=== PATIENT | male | born 1960 | race Caucasian/White ===

== ENCOUNTER → 2018-02-07 | Outpatient (CLI) | payer OTHER | LOC: CARD 09:14 | PROVIDERS: ATTEND Nurse Practitioner Family | DX: R94.31 Abnormal electrocardiogram [ECG] [EKG] (principal); I49.1 Atrial premature depolarization; I49.3 Ventricular premature depolarization; R06.09 Other forms of dyspnea | CPT/HCPCS: 93225; 93226 ==

== ENCOUNTER → 2018-02-14 | Outpatient (CLI) | payer OTHER ==
[~2018-02-14] MED LIST: CATHETER FLUSH 10 ML SYR IV PRN; REGADENOSON 0.4 MG/5 ML SYR (LEXISCAN) IV ONE
--- NOTE | 2018-02-16 10:29 | STRESS TEST ---
DATE OF SERVICE: 02/14/2018 RESTING AND POST REGADENOSON TECHNETIUM-99M TETROFOSMIN SPECT CT IMAGING ORDERING PHYSICIAN: Darlyn Hair APRN. CLINICAL DIAGNOSES: Abnormal electrocardiogram, premature ventricular contractions, shortness of breath. Baseline images were carried out after injection of 10.03 mCi of technetium-99m Tetrofosmin. This was followed by 0.4 mg regadenoson and 31.4 mCi of technetium-99m Tetrofosmin for stress imaging. The electrocardiogram showed sinus rhythm with frequent isolated premature ventricular contractions. The electrocardiogram did not change significantly with the regadenoson infusion. The patient noted some shortness of breath, which resolved in a few minutes following regadenoson infusion. Review of images at rest and following stress indicates a small transient inferior perfusion defect. Gated images show normal global left ventricular systolic function, normal regional wall motion. Left ventricular ejection fraction is calculated to be 50%. Left ventricular end-diastolic volume is 58 mL. TID is absent (1.06). CONCLUSIONS: 1. The study is indicative of a small amount of basal inferior ischemia. 2. Normal regional wall motion. 3. Normal global left ventricular systolic function with a calculated ejection fraction of 50%. Job ID: [id number] DocumentID: [id number] Dictated Date: 02/16/2018 10:02:26 Package Dyeing Machine Operator Date: 02/16/2018 10:29:06 Dictated By: GABRIELLE EVANS MD, MA, FACP, FACC,
== END ==
LOC: CARD 08:54
PROVIDERS: ATTEND Nurse Practitioner Family
DX: I49.1 Atrial premature depolarization (principal); I49.3 Ventricular premature depolarization; R06.09 Other forms of dyspnea; R94.31 Abnormal electrocardiogram [ECG] [EKG]
CPT/HCPCS: 78452; 93017; 93306

== ENCOUNTER 2018-04-14 14:44 | Day surgery (SDC) | payer OTHER ==
[2018-04-14] VITALS (10 sets, daily range): BP systolic 91–131; BP diastolic 57–89
[~2018-04-14] VITALS: Ht 172.7 cm; Wt 61.2 kg
--- OUTSIDE RECORDS SUMMARY | 2018-04-14 14:47 | XMS REPORT ---
Author Author CONOR GO Organization [facility] Address [address] [place] [address] Care Team Providers Care Teletype Or Varitype Keyboard Operator Name Role Phone CONOR GO Unavailable PROBLEMS Type Condition ICD9-CM Code TWA46-ZG Code Onset Dates Condition Status SNOMED Code Problem Chronic obstructive pulmonary disease, unspecified COPD type J44.9 Active 56382326 Problem PAC (premature atrial contraction) I49.1 Active 392384228 Problem Cigarette nicotine dependence with other nicotine-induced disorder F17.218 Active 73280003 Problem Low back pain M54.5 Active 774117935 Problem Hyperlipidemia, unspecified hyperlipidemia type E78.5 Active 90700966 Problem PVCs (premature ventricular contractions) I49.3 Active 46473069 Problem Marijuana abuse F12.10 Active 99257872 Problem Bradycardia R00.1 Active 83945500 Problem Other cardiac arrhythmia I49.8 Active 81087591 Problem Uncomplicated opioid dependence F11.20 Active 19240414 ALLERGIES No Information ENCOUNTERS Encounter Location Date Diagnosis [place] [id number] [address] Apr, [facility] [address] [address] Mar, Chronic obstructive pulmonary disease, unspecified COPD type J44.9 and Uncomplicated opioid dependence F11.20 [facility] [address] [place] [address] Mar, [facility] [address] [address] Mar, Abnormal stress test R94.39 ; Shortness of breath R06.02 ; PVCs (premature ventricular contractions) I49.3 ; Tobacco use Z72.0 and Hyperlipidemia, unspecified hyperlipidemia type E78.5 [facility] [address] [address] Mar, Uncomplicated opioid dependence F11.20 [facility] [address] [place] [address] Feb, Uncomplicated opioid dependence F11.20 [facility] [address] [place] [id number] [place] [address] Feb, Uncomplicated opioid dependence F11.20 [facility] [address] [address] Feb, Uncomplicated opioid dependence F11.20 [facility] [address] [place] [address] Feb, Uncomplicated opioid dependence F11.20 [facility] [address] [address] Jan, Uncomplicated opioid dependence F11.20 [facility] [address] [place] [address] Jan, Uncomplicated opioid dependence F11.20 [facility] [address] [address] Jan, Uncomplicated opioid dependence F11.20 [facility] [address] [place] [id number] [place] [address]- 4885 Jan, Uncomplicated opioid dependence F11.20 [facility] [address] [place] [address] Jan, Uncomplicated opioid dependence F11.20 [facility] [address] [place] [id number] [place] [address]26- 6510 Jan, Uncomplicated opioid dependence F11.20 [facility] [address] [place] [address] Jan, Uncomplicated opioid dependence F11.20 [facility] [address] [address] Jan, Abnormal EKG R94.31 ; PAC (premature atrial contraction) I49.1 ; PVCs (premature ventricular contractions) I49.3 ; Dyspnea on exertion R06.09 ; Chronic obstructive pulmonary disease, unspecified COPD type J44.9 ; History of drug use Z87.898 and Tobacco use Z72.0 [facility] [address] [place] [id number] [place] [address]234- 10[address] Jan, Uncomplicated opioid dependence F11.20 [facility] [address] [place] [address] Jan, Uncomplicated opioid dependence F11.20 [facility] [address] [place] [id number] [place] [address] 07990- 8[address] Dec, Chronic obstructive pulmonary disease, unspecified COPD type J44.9 and Uncomplicated opioid dependence F11.20 [facility] [address] [place] [id number] [place] [address] 9[address]21- 6426 Dec, Uncomplicated opioid dependence F11.20 [facility] [address] [place] [address] Dec, Uncomplicated opioid dependence F11.20 [facility] [address] [place] [id number] [place] [address] 65014- 1423 Dec, Uncomplicated opioid dependence F11.20 [facility] [address] [place] [address] Dec, Uncomplicated opioid dependence F11.20 [facility] [address] [place] [id number] [place] [address] 74661- 8804 Dec, [facility] [address] [place] [id number] [place] [address] 92141- 0719 Dec, Uncomplicated opioid dependence F11.20 [facility] [address] [place] [id number] [place] [address] 41345- 2785 Dec, [facility] [address] [place] [address] Dec, Uncomplicated opioid dependence F11.20 [facility] [address] [place] [address] 07690- 5966 Dec, [facility] [address] [place] [id number] [place] [address] 6[address]51- 18[address] Dec, Uncomplicated opioid dependence F11.20 [facility] [address] [place] [id number] [place] [address] 15317- 6205 Dec, Uncomplicated opioid dependence F11.20 [facility] [address] [place] [id number] [place] [address] 40085- 3818 Dec, [facility] [address] [place] [address] Nov, Uncomplicated opioid dependence F11.20 [facility] [address] [place] [id number] [place] [address] 31233- 2271 15 Nov, 2017 Other cardiac arrhythmia I49.8 [facility] [address] [place] [address] Nov, Uncomplicated opioid dependence F11.20 and Marijuana abuse F12.10 [facility] [address] [address] Nov, Uncomplicated opioid dependence F11.20 and Bradycardia R00.1 [facility] [address] [address] Nov, [facility] [address] [place] [address] Nov, Uncomplicated opioid dependence F11.20 and Marijuana abuse F12.10 [facility] [address] [place] [address] October, Uncomplicated opioid dependence F11.20 and Marijuana abuse F12.10 [facility] [address] [place] [id number] [place] [address] 27966- 25[address] October, Uncomplicated opioid dependence F11.20 [facility] [address] [place] [id number] [place] [address] 07653- 8773 October, [facility] [address] [place] [address] October, Uncomplicated opioid dependence F11.20 [facility] [address] [place] [id number] [place] [address]- [address] October, Uncomplicated opioid dependence F11.20 [facility] [address] [address] October, Opioid abuse F11.10 and Injection of illicit drug within last 12 months F19.90 [facility] [address] [place] [address] October, Uncomplicated opioid dependence F11.20 and Marijuana abuse F12.10 [facility] [address] [place] [id number] [place] [address] 32824- [address] October, [facility] [address] [place] [address] October, Uncomplicated opioid dependence F11.20 and Marijuana abuse F12.10 [facility] [address] [address] Sep, Chronic obstructive pulmonary disease, unspecified COPD type J44.9 ; Cigarette nicotine dependence with other nicotine-induced disorder F17.218 and PAC (premature atrial contraction) I49.1 [facility] [address] [place] [address] Sep, Uncomplicated opioid dependence F11.20 and Marijuana abuse F12.10 [facility] [address] [place] [id number] [place] [address] 29242- 9027 Sep, [facility] [address] [address] Sep, [facility] [address] [place] [id number] [place] [address] 07181- 9427 Sep, [facility] [address] [address] Jun, [facility] [address] [place] [id number] [place] [address] 67[address]- [address] Jun, [facility] [address] [address] May, Chronic obstructive pulmonary disease, unspecified COPD type J44.9 [facility] [address] [place] [id number] [place] [address] 29112- 1589 May, Overflow incontinence of urine N39.490 [facility] [address] [place] [id number] [place] [address] 49963- 3219 Apr, Bronchitis J40 ; Chronic obstructive pulmonary disease, unspecified COPD type J44.9 and Cigarette nicotine dependence with other nicotine-induced disorder F17.218 [place] [address] [address] Apr, [place] [address] [place] [id number] [place] [address]12- 5[address] Jan, Bronchitis J40 [place] [address] [place] [id number] [place] [address] 40068- 4506 Jan, Bronchitis J40 [place] [address] [place] [id number] [place] [address] 86096- 4134 Dec, Bronchitis J40 ; Low back pain M54.5 and Other chronic pain G89.29 [place] [address] [address]- 6[address] Sep, [place] [address] [place] [id number] [place] [address] 44692- 8055 Sep, [place] [address] [place] [id number] [place] [address] 64383- 5570 Nov, [place] [address] [place] [id number] [place] [address] 23442- 5251 Nov, IMMUNIZATIONS No Known Immunizations SOCIAL HISTORY Never Assessed REASON FOR VISIT Lab (walk-in) PLAN OF CARE VITAL SIGNS MEDICATIONS Medication Instructions Dosage Frequency Start Date End Date Duration Status ProAir HFA 108 (90 Base) MCG/ACT Inhalation every 4 hrs. Please voucher 2 puffs as needed Jun, Active Suboxone 8-2 MG Sublingual Once a day 2 film under the tongue and allow to dissolve 24h 28 days Active RESULTS No Results PROCEDURES Procedure Date Ordered Result Body Site DRUG TEST PRSMV CHEM ANLYZR Mar 31, 2018 DRUG SCREEN AMPHETAMINES 1/2 Mar 31, 2018 INSTRUCTIONS MEDICATIONS ADMINISTERED No Known Medications MEDICAL (GENERAL) HISTORY Type Description Date Medical History Unspecified backache Medical History tips of 3rd and 4th digit on right hand cut off Medical History PACs/PVCs/Bradycardia Medical History opioid use disorder Surgical History No Surgical history information Hospitalization History had tips of 3rd and 4th digit on right hand cut off, got caught in dog cable
--- OUTSIDE RECORDS SUMMARY | 2018-04-14 14:47 | XMS REPORT ---
Author Author CONOR GO Organization [facility] Address [address] [place] [address] Care Team Providers Care At Home Independent Call Center Agent Name Role Phone CONOR GO Unavailable PROBLEMS Type Condition ICD9-CM Code CCI95-DK Code Onset Dates Condition Status SNOMED Code Problem Chronic obstructive pulmonary disease, unspecified COPD type J44.9 Active 85147525 Problem PAC (premature atrial contraction) I49.1 Active 384026483 Problem Cigarette nicotine dependence with other nicotine-induced disorder F17.218 Active 65691611 Problem Low back pain M54.5 Active 242426424 Problem Hyperlipidemia, unspecified hyperlipidemia type E78.5 Active 76558931 Problem PVCs (premature ventricular contractions) I49.3 Active 50635556 Problem Marijuana abuse F12.10 Active 31965255 Problem Bradycardia R00.1 Active 76296087 Problem Other cardiac arrhythmia I49.8 Active 55744318 Problem Uncomplicated opioid dependence F11.20 Active 55412647 ALLERGIES No Known Allergies ENCOUNTERS Encounter Location Date Diagnosis [facility] [address] [place] [address] Mar, [facility] [address] [place] [id number] [place] [address] Mar, Abnormal stress test R94.39 ; Shortness of breath R06.02 ; PVCs (premature ventricular contractions) I49.3 ; Tobacco use Z72.0 and Hyperlipidemia, unspecified hyperlipidemia type E78.5 [facility] [address] [place] [id number] [place] [address]153- 1337 Mar, Uncomplicated opioid dependence F11.20 [facility] [address] [place] [address] Feb, Uncomplicated opioid dependence F11.20 [facility] [address] [place] [id number] [place] [address] 24632- 8881 Feb, Uncomplicated opioid dependence F11.20 [facility] [address] [place] [address] Feb, Uncomplicated opioid dependence F11.20 [facility] [address] [place] [address] Feb, Uncomplicated opioid dependence F11.20 [facility] [address] [place] [id number] [place] [address] 73089- 4036 Jan, Uncomplicated opioid dependence F11.20 [facility] [address] [place] [address] Jan, Uncomplicated opioid dependence F11.20 [facility] [address] [place] [id number] [place] [address] 80860- 5418 Jan, Uncomplicated opioid dependence F11.20 [facility] [address] [place] [id number] [place] [address] 78976- 5183 Jan, Uncomplicated opioid dependence F11.20 [facility] [address] [place] [address] Jan, Uncomplicated opioid dependence F11.20 [facility] [address] [place] [id number] [place] [address] 76911- 5886 Jan, Uncomplicated opioid dependence F11.20 [facility] [address] [place] [address] Jan, Uncomplicated opioid dependence F11.20 [facility] [address] [place] [id number] [place] [address] 06268- 2011 Jan, Abnormal EKG R94.31 ; PAC (premature atrial contraction) I49.1 ; PVCs (premature ventricular contractions) I49.3 ; Dyspnea on exertion R06.09 ; Chronic obstructive pulmonary disease, unspecified COPD type J44.9 ; History of drug use Z87.898 and Tobacco use Z72.0 [facility] [address] [place] [id number] [place] [address] 05785- 4679 Jan, Uncomplicated opioid dependence F11.20 [facility] [address] [place] [address] Jan, Uncomplicated opioid dependence F11.20 [facility] [address] [place] [id number] [place] [address] 73834- 6891 Dec, Chronic obstructive pulmonary disease, unspecified COPD type J44.9 and Uncomplicated opioid dependence F11.20 [facility] [address] [place] [id number] [place] [address] 67702- 1174 Dec, Uncomplicated opioid dependence F11.[address] [facility] [address] [place] [address] Dec, Uncomplicated opioid dependence F11.20 [facility] [address] [place] [id number] [place] [address] 52249- 6957 Dec, Uncomplicated opioid dependence F11.[address] [facility] [address] [place] [address] Dec, Uncomplicated opioid dependence F11.20 [facility] [address] [place] [id number] [place] [address] 03692- 4815 Dec, [facility] [address] [place] [id number] [place] [address] 53867- 1696 Dec, Uncomplicated opioid dependence F11.20 [facility] [address] [place] [id number] [place] [address] 07461- 9725 Dec, [facility] [address] [place] [address] Dec, Uncomplicated opioid dependence F11.20 [facility] [address] [place] [id number] [place] [address] 68534- 6339 Dec, [facility] [address] [place] [id number] [place] [address] 88562- 3112 Dec, Uncomplicated opioid dependence F11.20 [facility] [address] [place] [id number] [place] [address] 37251- 6690 Dec, Uncomplicated opioid dependence F11.20 [facility] [address] [place] [id number] [place] [address] 80945- 8748 Dec, [facility] [address] [place] [address] Nov, Uncomplicated opioid dependence F11.20 [facility] [address] [place] [id number] [place] [address] 31400- 6821 15 Nov, 2017 Other cardiac arrhythmia I49.[address] [facility] [address] [place] [address] 15 Nov, 2017 Uncomplicated opioid dependence F11.20 and Marijuana abuse F12.10 [facility] [address] [place] [id number] [place] [address] 03572- 6028 13 Nov, 2017 Uncomplicated opioid dependence F11.20 and Bradycardia R00.1 [facility] [address] [address]- [address]201 07 Nov, 2017 [facility] [address] [place] [address] Nov, Uncomplicated opioid dependence F11.20 and Marijuana abuse F12.10 [facility] [address] [place] [address] October, Uncomplicated opioid dependence F11.20 and Marijuana abuse F12.10 [facility] [address] [place] [id number] [place] [address] 58104- 5888 October, Uncomplicated opioid dependence F11.20 [facility] [address] [place] [id number] [place] [address] 81613- 4116 October, [facility] [address] [place] [address] October, Uncomplicated opioid dependence F11.20 [facility] [address] [place] [id number] [place] [address] 87368- 3322 October, Uncomplicated opioid dependence F11.20 [facility] [address] [place] [id number] [place] [address] 90818- 1069 October, Opioid abuse F11.10 and Injection of illicit drug within last 12 months F19.90 [facility] [address] [place] [address] October, Uncomplicated opioid dependence F11.20 and Marijuana abuse F12.10 [facility] [address] [place] [id number] [place] [address] 29641- 8365 October, [facility] [address] [place] [address] October, Uncomplicated opioid dependence F11.20 and Marijuana abuse F12.10 [facility] [address] [place] [id number] [place] [address] 58937- 2918 Sep, Chronic obstructive pulmonary disease, unspecified COPD type J44.9 ; Cigarette nicotine dependence with other nicotine-induced disorder F17.218 and PAC (premature atrial contraction) I49.1 [facility] [address] [place] [address] Sep, Uncomplicated opioid dependence F11.20 and Marijuana abuse F12.10 [facility] [address] [place] [id number] [place] [address] 40323- 7829 Sep, [facility] [address] 37619- 8900 Sep, [facility] [address] [place] [id number] [place] [address] 75476- 0984 Sep, [facility] [address] 08230- 0174 Jun, [facility] [address] [place] [id number] [place] [address] 46550- 6117 Jun, [facility] [address] 99106- 7356 May, Chronic obstructive pulmonary disease, unspecified COPD type J44.9 [place] [address] [place] [id number] [place] [address] 75869- 4565 May, Overflow incontinence of urine N39.490 [facility] [address] [place] [id number] [place] [address] 89389- 0894 Apr, Bronchitis J40 ; Chronic obstructive pulmonary disease, unspecified COPD type J44.9 and Cigarette nicotine dependence with other nicotine-induced disorder F17.218 [facility] [address] [place] [id number] [place] [address] 51726- 2767 Apr, [facility] [address] [place] [id number] [place] [address] 50727- 5669 Jan, Bronchitis J40 [facility] [address] [place] [address]- 0119 Jan, Bronchitis J40 [place] [address] [place] [address] Dec, Bronchitis J40 ; Low back pain M54.5 and Other chronic pain G89.29 [place] [id number] [place] [address] 68755- 6843 Sep, [place] [address] [place] [id number] [place] [address] 38258- 5933 Sep, [place] [address] [place] [id number] [place] [address] 60872- 0149 Nov, [place] [id number] [place] [address] 30278- 6332 Nov, IMMUNIZATIONS No Known Immunizations SOCIAL HISTORY Never Assessed REASON FOR VISIT MAT F/U, pt states he is doing good, no complications. Needs refills on meds. Braeden MILLER PLAN OF CARE Activity Details Follow Up 2 Months Reason: VITAL SIGNS Height 68 in 2018-03-07 Weight 121 lbs 2018-03-07 Temperature 98.1 degrees Fahrenheit 2018-03-07 Heart Rate 35 bpm 2018-03-07 Respiratory Rate 16 2018-03-07 BMI 18.40 kg/m2 2018-03-07 Blood pressure systolic 98 mmHg 2018-03-07 Blood pressure diastolic 49 mmHg 2018-03-07 MEDICATIONS Medication Instructions Dosage Frequency Start Date End Date Duration Status Suboxone 8-2 MG Sublingual Once a day 2 film under the tongue and allow to dissolve 24h Mar, 28 days Active Low-Dose Aspirin 81 MG Orally Once a day 1 tablet 24h Active ProAir HFA 108 (90 Base) MCG/ACT Inhalation every 4 hrs. Please voucher 2 puffs as needed Jun, Active RESULTS No Results PROCEDURES No Known procedures INSTRUCTIONS MEDICATIONS ADMINISTERED No Known Medications MEDICAL (GENERAL) HISTORY Type Description Date Medical History Unspecified backache Medical History tips of 3rd and 4th digit on right hand cut off Medical History PACs/PVCs/Bradycardia Medical History opioid use disorder Surgical History No Surgical history information Hospitalization History had tips of 3rd and 4th digit on right hand cut off, got caught in [employer]
--- OUTSIDE RECORDS SUMMARY | 2018-04-14 14:47 | XMS REPORT ---
Author Author ROMMEL WEBER [facility] Address [address] [place] [address] Care Team Providers Care Consumer Marketing Analyst Name Role Phone ROMMEL WEBER Unavailable PROBLEMS Type Condition ICD9-CM Code PTG27-SC Code Onset Dates Condition Status SNOMED Code Problem Chronic obstructive pulmonary disease, unspecified COPD type J44.9 Active 01783853 Problem PAC (premature atrial contraction) I49.1 Active 524068806 Problem Cigarette nicotine dependence with other nicotine-induced disorder F17.218 Active 63671120 Problem Low back pain M54.5 Active 407568108 Problem Hyperlipidemia, unspecified hyperlipidemia type E78.5 Active 98034793 Problem PVCs (premature ventricular contractions) I49.3 Active 99429461 Problem Marijuana abuse F12.10 Active 53545886 Problem Bradycardia R00.1 Active 39311010 Problem Other cardiac arrhythmia I49.8 Active 26883499 Problem Uncomplicated opioid dependence F11.20 Active 13188579 ALLERGIES No Known Allergies ENCOUNTERS Encounter Location Date Diagnosis [facility] [address] [place] [address] Mar, [facility] [id number] [place] [address] 18205- 9017 Mar, Abnormal stress test R94.39 ; Shortness of breath R06.02 ; PVCs (premature ventricular contractions) I49.3 ; Tobacco use Z72.0 and Hyperlipidemia, unspecified hyperlipidemia type E78.5 [facility] [id number] [place] [address] 04640- 1758 Mar, Uncomplicated opioid dependence F11.20 [facility] [address] [place] [address] Feb, Uncomplicated opioid dependence F11.20 [facility] [id number] [place] [address] 90842- 4114 Feb, Uncomplicated opioid dependence F11.20 [facility] [address] [place] [address] 77672- 0403 Feb, Uncomplicated opioid dependence F11.20 [facility] [address] [place] [address] Feb, Uncomplicated opioid dependence F11.20 [facility] [id number] [place] [address] 72145- 9267 Jan, Uncomplicated opioid dependence F11.20 [facility] [address] [place] [address] Jan, Uncomplicated opioid dependence F11.20 [facility] [id number] [place] [address] 20391- 6224 Jan, Uncomplicated opioid dependence F11.20 [facility] [id number] [place] [address] 59190- 5840 Jan, Uncomplicated opioid dependence F11.20 [facility] [address] [place] [address] Jan, Uncomplicated opioid dependence F11.20 [facility] [id number] [place] [address] 54678- 6080 Jan, Uncomplicated opioid dependence F11.20 [facility] [address] [place] [address] Jan, Uncomplicated opioid dependence F11.20 [facility] [id number] [place] [address] 01695- 3983 Jan, Abnormal EKG R94.31 ; PAC (premature atrial contraction) I49.1 ; PVCs (premature ventricular contractions) I49.3 ; Dyspnea on exertion R06.09 ; Chronic obstructive pulmonary disease, unspecified COPD type J44.9 ; History of drug use Z87.898 and Tobacco use Z72.0 [facility] [id number] [place] [address] 31236- 0172 Jan, Uncomplicated opioid dependence F11.20 [facility] [address] [place] [address] Jan, Uncomplicated opioid dependence F11.20 [facility] [id number] [place] [address] 15839- 7472 Dec, Chronic obstructive pulmonary disease, unspecified COPD type J44.9 and Uncomplicated opioid dependence F11.20 [facility] [id number] [place] [address] 67864- 3258 Dec, Uncomplicated opioid dependence F11.20 [facility] [address] [place] [address] Dec, Uncomplicated opioid dependence F11.20 [facility] [id number] [place] [address] 08742- 4703 Dec, Uncomplicated opioid dependence F11.20 [facility] [address] [place] [address] Dec, Uncomplicated opioid dependence F11.20 [facility] [id number] [place] [address] 19392- 6668 Dec, [facility] [id number] [place] [address] 56901- 9688 Dec, Uncomplicated opioid dependence F11.20 [facility] [id number] [place] [address] 86311- 4722 Dec, [facility] [address] [place] [address] Dec, Uncomplicated opioid dependence F11.20 [facility] [id number] [place] [address] 17394- 4267 Dec, [facility] [id number] [place] [address] 59372- 9443 Dec, Uncomplicated opioid dependence F11.20 [facility] [id number] [place] [address] 57016- 4125 Dec, Uncomplicated opioid dependence F11.20 [facility] [id number] [place] [address] 97261- 3451 Dec, [facility] [address] [place] [address] Nov, Uncomplicated opioid dependence F11.20 [facility] [id number] [place] [address] 46369- 6797 15 Nov, 2017 Other cardiac arrhythmia I49.8 [facility] [address] [place] [address] 15 Nov, 2017 Uncomplicated opioid dependence F11.20 and Marijuana abuse F12.10 [facility] [id number] [place] [address] 21830- 6552 13 Nov, 2017 Uncomplicated opioid dependence F11.20 and Bradycardia R00.1 [facility] [address] 29790- 1601 07 Nov, 2017 [facility] [address] [place] [address] Nov, Uncomplicated opioid dependence F11.20 and Marijuana abuse F12.10 [facility] [address] [place] [address] October, Uncomplicated opioid dependence F11.20 and Marijuana abuse F12.10 [facility] [address] 57834- 6320 October, Uncomplicated opioid dependence F11.20 [facility] [id number] [place] [address] 89253- 0620 October, [facility] [address] [place] [address] October, Uncomplicated opioid dependence F11.20 [facility] [id number] [place] [address] 88314- 6240 October, Uncomplicated opioid dependence F11.20 [facility] [id number] [place] [address] 00601- 1644 October, Opioid abuse F11.10 and Injection of illicit drug within last 12 months F19.90 [facility] [address] [place] [address] October, Uncomplicated opioid dependence F11.20 and Marijuana abuse F12.10 [facility] [id number] [place] [address] 07837- 5574 October, [facility] [address] [place] [address] October, Uncomplicated opioid dependence F11.20 and Marijuana abuse F12.10 [facility] [address] [place] [address] 64226- 6962 Sep, Chronic obstructive pulmonary disease, unspecified COPD type J44.9 ; Cigarette nicotine dependence with other nicotine-induced disorder F17.218 and PAC (premature atrial contraction) I49.1 [facility] [address] [place] [address] Sep, Uncomplicated opioid dependence F11.20 and Marijuana abuse F12.10 [facility] [id number] [place] [address] 48957- 1775 Sep, [facility] [id number] [place] [address] 31518- 7788 Sep, [facility] [id number] [place] [address] 86386- 7155 Sep, [facility] [id number] [place] [address] 88414- 8442 Jun, [facility] [id number] [place] [address] 61573- 5413 Jun, [facility] [id number] [place] [address] 05894- 0774 May, Chronic obstructive pulmonary disease, unspecified COPD type J44.9 [place] [facility] [id number] [place] [address] 69079- 5908 May, Overflow incontinence of urine N39.490 [facility] [id number] [place] [address] 18401- 5419 Apr, Bronchitis J40 ; Chronic obstructive pulmonary disease, unspecified COPD type J44.9 and Cigarette nicotine dependence with other nicotine-induced disorder F17.218 [facility] [id number] [place] [address] 49706- 5878 16 Apr, 2016 [facility] [id number] [place] [address] 29467- 3724 Jan, Bronchitis J40 [facility] [address] [place] [address]- 6980 Jan, Bronchitis J40 [facility] [address] [address] 6813 Dec, Bronchitis J40 ; Low back pain M54.5 and Other chronic pain G89.29 [facility] [address] [address] Sep, [place] [address] [place] [address] 80082- 7572 Sep, [facility] [address] [address] 1729 Nov, [place] [address] [address] 0337 Nov, IMMUNIZATIONS No Known Immunizations SOCIAL HISTORY Never Assessed REASON FOR VISIT abnormal EKGs x 2 PLAN OF CARE Activity Details Follow Up prn Reason: VITAL SIGNS Height 68 in 2018-03-15 Heart Rate 60 bpm 2018-03-15 Oximetry 94 % 2018-03-15 Blood pressure systolic 112 mmHg 2018-03-15 Blood pressure diastolic 60 mmHg 2018-03-15 MEDICATIONS Medication Instructions Dosage Frequency Start Date End Date Duration Status Suboxone 8-2 MG Sublingual Once a day 2 film under the tongue and allow to dissolve 24h Mar, 28 days Active Low-Dose Aspirin 81 MG Orally Once a day 1 tablet 24h Active Lipitor 20 MG Orally Once a day 1 tablet 24h Mar, 30 day(s) Active ProAir HFA 108 (90 Base) MCG/ACT [...]
[2018-04-14] MEDS ORDERED: NS IV 1000 ML 1,000 ML ONE (14:48)
[2018-04-14] MEDS ORDERED: HEParin (CATH LAB) 2,000 ML IV ONE (14:48)
[2018-04-14] MEDS ORDERED: LIDOCAINE 1% INJ 20 ML 20 ML VIAL ONE (14:48)
--- OUTSIDE RECORDS SUMMARY | 2018-04-14 14:48 | XMS REPORT ---
Author Author SANTOSH HUNTER [facility] Address [address] [place] [address] Care Team Providers Care Underliner Name Role Phone SANTOSH HUNTER Unavailable PROBLEMS ALLERGIES No Information ENCOUNTERS IMMUNIZATIONS No Known Immunizations SOCIAL HISTORY No smoking Hx information available REASON FOR VISIT PLAN OF CARE VITAL SIGNS MEDICATIONS RESULTS No Results PROCEDURES INSTRUCTIONS MEDICATIONS ADMINISTERED No Known Medications MEDICAL (GENERAL) HISTORY
--- OUTSIDE RECORDS SUMMARY | 2018-04-14 14:48 | XMS REPORT ---
Author Author ELSA SANTOSH [facility] Address [address] [place] [address] Care Team Providers Care Vending Service Technician Name Role Phone SANTOSH HUNTER Unavailable PROBLEMS Type Condition ICD9-CM Code WKN88-YC Code Onset Dates Condition Status SNOMED Code Problem Low back pain M54.5 Active 299090739 Problem Cigarette nicotine dependence with other nicotine-induced disorder F17.218 Active 17286628 Problem Chronic obstructive pulmonary disease, unspecified COPD type J44.9 Active 84321943 Problem PVCs (premature ventricular contractions) I49.3 Active 18334147 Problem Other cardiac arrhythmia I49.8 Active 43655031 Problem Bradycardia R00.1 Active 01765845 Problem PAC (premature atrial contraction) I49.1 Active 341167061 Problem Uncomplicated opioid dependence F11.20 Active 11258429 Problem Marijuana abuse F12.10 Active 24446395 ALLERGIES No Information ENCOUNTERS Encounter Location Date Diagnosis [facility] [address] [place] [address] Mar, [facility] [id number] [place] [address] 96744- 2139 Mar, [facility] [id number] [place] [address] 77544- 9764 Mar, [facility] [address] [place] [address] Feb, Uncomplicated opioid dependence F11.20 [facility] [id number] [place] [address] 61794- 5636 Feb, Uncomplicated opioid dependence F11.20 [facility] [id number] [place] [address] 21174- 6765 Feb, Uncomplicated opioid dependence F11.20 [facility] [address] [place] [address] Feb, Uncomplicated opioid dependence F11.20 [facility] [address] [place] [address] 57664- 5706 Jan, Uncomplicated opioid dependence F11.20 [facility] [address] [place] [address] Jan, Uncomplicated opioid dependence F11.20 [facility] [id number] [place] [address] 73844- 1170 Jan, Uncomplicated opioid dependence F11.20 [facility] [id number] [place] [address] 72202- 8132 Jan, Uncomplicated opioid dependence F11.20 [facility] [address] [place] [address] Jan, Uncomplicated opioid dependence F11.20 [facility] [id number] [place] [address] 66164- 2949 Jan, Uncomplicated opioid dependence F11.20 [facility] [address] [place] [address] Jan, Uncomplicated opioid dependence F11.20 [facility] [id number] [place] [address] 77331- 1191 Jan, Abnormal EKG R94.31 ; PAC (premature atrial contraction) I49.1 ; PVCs (premature ventricular contractions) I49.3 ; Dyspnea on exertion R06.09 ; Chronic obstructive pulmonary disease, unspecified COPD type J44.9 ; History of drug use Z87.898 and Tobacco use Z72.0 [facility] [id number] [place] [address] 73564- 4971 Jan, Uncomplicated opioid dependence F11.20 [facility] [address] [place] [address] Jan, Uncomplicated opioid dependence F11.20 [facility] [id number] [place] [address] 69753- 0888 Dec, Chronic obstructive pulmonary disease, unspecified COPD type J44.9 and Uncomplicated opioid dependence F11.20 [facility] [id number] [place] [address] 05756- 2482 Dec, Uncomplicated opioid dependence F11.20 [facility] [address] [place] [address] Dec, Uncomplicated opioid dependence F11.20 [facility] [id number] [place] [address] 02059- 1071 Dec, Uncomplicated opioid dependence F11.20 [facility] [address] [place] [address] Dec, Uncomplicated opioid dependence F11.20 [facility] [id number] [place] [address] 11015- 6490 Dec, [facility] [id number] [place] [address] 18520- 8978 Dec, Uncomplicated opioid dependence F11.20 [facility] [id number] [place] [address] 51162- 5778 Dec, [facility] [address] [place] [address] Dec, Uncomplicated opioid dependence F11.20 [facility] [id number] [place] [address] 42057- 3029 Dec, [facility] [address] 20986- 8502 Dec, Uncomplicated opioid dependence F11.20 [facility] [id number] [place] [address] 34683- 0848 Dec, Uncomplicated opioid dependence F11.20 [facility] [id number] [place] [address] 74358- 9024 Dec, [facility] [address] [place] [address] Nov, Uncomplicated opioid dependence F11.20 [facility] [address] 07512- 7328 Nov, Other cardiac arrhythmia I49.8 [facility] [address] [place] [address] Nov, Uncomplicated opioid dependence F11.20 and Marijuana abuse F12.10 [facility] [address] [place] [address]- 7164 13 Nov, 2017 Uncomplicated opioid dependence F11.20 and Bradycardia R00.1 [facility] [address] 51131- 0403 07 Nov, 2017 [facility] [address] [place] [address] 07 Nov, 2017 Uncomplicated opioid dependence F11.20 and Marijuana abuse F12.10 [facility] [address] [place] [address] October, Uncomplicated opioid dependence F11.20 and Marijuana abuse F12.10 [facility] [id number] [place] [address] 97520- 6696 October, Uncomplicated opioid dependence F11.20 [facility] [id number] [place] [address] 63355- 0404 October, [facility] [address] [place] [address] October, Uncomplicated opioid dependence F11.20 [facility] [id number] [place] [address] 32858- 5926 October, Uncomplicated opioid dependence F11.20 [place] [address] 42239- 9352 October, Opioid abuse F11.10 and Injection of illicit drug within last 12 months F19.90 [facility] [address] [place] [address] October, Uncomplicated opioid dependence F11.20 and Marijuana abuse F12.10 [facility] [id number] [place] [address] 44765- 6309 October, [facility] [address] [place] [address] October, Uncomplicated opioid dependence F11.20 and Marijuana abuse F12.10 [facility] [id number] [place] [address] 41820- 3061 Sep, Chronic obstructive pulmonary disease, unspecified COPD type J44.9 ; Cigarette nicotine dependence with other nicotine-induced disorder F17.218 and PAC (premature atrial contraction) I49.1 [facility] [address] [place] [address] Sep, Uncomplicated opioid dependence F11.20 and Marijuana abuse F12.10 [facility] [address] 98706- 3107 Sep, [facility] [address] 60065- 9773 Sep, [facility] [address] 05608- 7541 Sep, [facility] [address] 71594- 3084 Jun, [place] [address] 63864- 4997 Jun, [place] [address] 92049- 7673 May, Chronic obstructive pulmonary disease, unspecified COPD type J44.9 [place] [address] 86576- 0795 May, Overflow incontinence of urine N39.490 [place] [address] 03995- 0356 Apr, Bronchitis J40 ; Chronic obstructive pulmonary disease, unspecified COPD type J44.9 and Cigarette nicotine dependence with other nicotine-induced disorder F17.218 [place] [address] 31345- 2960 Apr, [place] [address] 99572- 4356 Jan, Bronchitis J40 [place] [address] 78773- 5364 Jan, Bronchitis J40 [facility] [address] 10483- 4867 Dec, Bronchitis J40 ; Low back pain M54.5 and Other chronic pain G89.29 [facility] [address] [facility] [id number] [address] Sep, [facility] [address] [facility] [id number] [address]28 Sep, [facility] [id number] [address] 7004 Nov, [facility] [address] [facility] [id number], [place] [address] 0420 Nov, IMMUNIZATIONS No Known Immunizations SOCIAL HISTORY Never Assessed REASON FOR VISIT SUBAB-FU PLAN OF CARE Activity Details Follow Up 2 Weeks Reason:SUBABFU VITAL SIGNS MEDICATIONS Unknown Medications RESULTS No Results PROCEDURES Procedure Date Ordered Result Body Site Alcohol and/or drug services Feb 02, 2018 INSTRUCTIONS MEDICATIONS ADMINISTERED No Known Medications MEDICAL (GENERAL) HISTORY Type Description Date Medical History Unspecified backache Medical History tips of 3rd and 4th digit on right hand cut off Medical History PACs/PVCs/Bradycardia Medical History opioid use disorder Hospitalization History had tips of 3rd and 4th digit on right hand cut off, got caught in dog cable
--- OUTSIDE RECORDS SUMMARY | 2018-04-14 14:48 | XMS REPORT ---
Author Author CONOR OG Organization [facility] Address [address] [place] [address] Care Team Providers Care Porcelain Finish Sprayer Name Role Phone CONOR GO Unavailable PROBLEMS Type Condition ICD9-CM Code KHI53-BB Code Onset Dates Condition Status SNOMED Code Problem Low back pain M54.5 Active 436024776 Problem Cigarette nicotine dependence with other nicotine-induced disorder F17.218 Active 02538405 Problem Chronic obstructive pulmonary disease, unspecified COPD type J44.9 Active 52575786 Problem PVCs (premature ventricular contractions) I49.3 Active 92902124 Problem Other cardiac arrhythmia I49.8 Active 53074317 Problem Bradycardia R00.1 Active 12335345 Problem PAC (premature atrial contraction) I49.1 Active 549678778 Problem Uncomplicated opioid dependence F11.20 Active 03433451 Problem Marijuana abuse F12.10 Active 76190404 ALLERGIES No Known Allergies ENCOUNTERS Encounter Location Date Diagnosis [facility] [address] [place] [address] Mar, [facility] [address] [address] Mar, [facility] [id number] [place] [address] 27772- 6316 Mar, [facility] [address] [place] [address] Feb, Uncomplicated opioid dependence F11.20 [facility] [id number] [place] [address] 58268- 6955 Feb, Uncomplicated opioid dependence F11.20 [facility] [id number] [place] [address] 69189- 6677 Feb, Uncomplicated opioid dependence F11.20 [facility] [address] [place] [address] Feb, Uncomplicated opioid dependence F11.20 [facility] [address] [place] [address] 29390- 7824 Jan, Uncomplicated opioid dependence F11.20 [facility] [address] [place] [address] Jan, Uncomplicated opioid dependence F11.20 [facility] [id number] [place] [address] 59324- 6891 Jan, Uncomplicated opioid dependence F11.20 [facility] [id number] [place] [address] 06072- 8731 Jan, Uncomplicated opioid dependence F11.20 [facility] [address] [place] [address] Jan, Uncomplicated opioid dependence F11.20 [facility] [id number] [place] [address] 14891- 9127 Jan, Uncomplicated opioid dependence F11.20 [facility] [address] [place] [address] Jan, Uncomplicated opioid dependence F11.20 [facility] [id number] [place] [address] 64833- 5619 Jan, Abnormal EKG R94.31 ; PAC (premature atrial contraction) I49.1 ; PVCs (premature ventricular contractions) I49.3 ; Dyspnea on exertion R06.09 ; Chronic obstructive pulmonary disease, unspecified COPD type J44.9 ; History of drug use Z87.898 and Tobacco use Z72.0 [facility] [id number] [place] [address] 31539- 6915 Jan, Uncomplicated opioid dependence F11.20 [facility] [address] [place] [address] Jan, Uncomplicated opioid dependence F11.20 [facility] [id number] [place] [address] 34480- 0315 Dec, Chronic obstructive pulmonary disease, unspecified COPD type J44.9 and Uncomplicated opioid dependence F11.20 [facility] [id number] [place] [address] 22716- 5728 Dec, Uncomplicated opioid dependence F11.20 [facility] [address] [place] [address] Dec, Uncomplicated opioid dependence F11.20 [facility] [id number] [place] [address] 20098- 2132 Dec, Uncomplicated opioid dependence F11.20 [facility] [address] [place] [address] Dec, Uncomplicated opioid dependence F11.20 [facility] [address] [address]67[address] Dec, [facility] [address] [address] 7999 Dec, Uncomplicated opioid dependence F11.20 [facility] [address] [address] 3[address] Dec, [facility] [address] [place] [address] Dec, Uncomplicated opioid dependence F11.20 [facility] [id number] [place] [address] 59899- 9015 Dec, [facility] [address] 00[address] 4034 Dec, Uncomplicated opioid dependence F11.20 [facility] [id number] [place] [address] 54359- 8428 Dec, Uncomplicated opioid dependence F11.20 [facility] [address] 05164- 9236 Dec, [facility] [address] [place] [address] Nov, Uncomplicated opioid dependence F11.20 [facility] [address] 644[address]- 6[address] Nov, Other cardiac arrhythmia I49.8 [facility] [address] [place] [address] Nov, Uncomplicated opioid dependence F11.20 and Marijuana abuse F12.10 [facility] [id number] [place] [address] 37895- 0816 13 Nov, 2017 Uncomplicated opioid dependence F11.20 and Bradycardia R00.1 [facility] [id number] [place] [address] 35844- 2230 07 Nov, 2017 [facility] [address] [place] [address] Nov, Uncomplicated opioid dependence F11.20 and Marijuana abuse F12.10 [facility] [address] [place] [address] October, Uncomplicated opioid dependence F11.20 and Marijuana abuse F12.10 [facility] [id number] [place] [address] 55052- 8851 October, Uncomplicated opioid dependence F11.20 [facility] [id number] [place] [address] 21621- 4325 October, [facility] [address] [place] [address] October, Uncomplicated opioid dependence F11.20 [facility] [id number] [place] [address] 86110- 3105 October, Uncomplicated opioid dependence F11.20 [facility] [id number] [place] [address] 17335- 7392 October, Opioid abuse F11.10 and Injection of illicit drug within last 12 months F19.90 [facility] [address] [place] [address] October, Uncomplicated opioid dependence F11.20 and Marijuana abuse F12.10 [facility] [address] [place] [address] 08882- 2650 October, [facility] [address] [place] [address] October, Uncomplicated opioid dependence F11.20 and Marijuana abuse F12.10 [facility] [id number] [place] [address] 62230- 6491 Sep, Chronic obstructive pulmonary disease, unspecified COPD type J44.9 ; Cigarette nicotine dependence with other nicotine-induced disorder F17.218 and PAC (premature atrial contraction) I49.1 [facility] [address] [place] [address] Sep, Uncomplicated opioid dependence F11.20 and Marijuana abuse F12.10 [facility] [id number] [place] [address] 03942- 4515 Sep, [facility] [address] 94303- 7592 Sep, [facility] [address] [address] Sep, [facility] [address] [address] 4731 Jun, [place] [address] [address] 4597 Jun, [place] [address] 58048[address] May, Chronic obstructive pulmonary disease, unspecified COPD type J44.9 [facility] [id number] [place] [address] 03193- 0061 May, Overflow incontinence of urine N39.490 [place] [facility] [address] [address] Apr, Bronchitis J40 ; Chronic obstructive pulmonary disease, unspecified COPD type J44.9 and Cigarette nicotine dependence with other nicotine-induced disorder F17.218 [facility] [id number] [place] [address] 93312- 7039 Apr, [facility] [id number] [place] [address] 68509- 6679 Jan, Bronchitis J40 [facility] [facility] [id number] [place] [address] 89209- 4349 Jan, Bronchitis J40 [place] [facility] [id number] [place] [address] 89085- 7860 Dec, Bronchitis J40 ; Low back pain M54.5 and Other chronic pain G89.29 [facility] [address] [facility] [id number] [address] Sep, [facility] [address] [facility] [id number], [place] [address] Sep, [facility] [address] [facility] [id number] [address] Nov, [facility] [address] [facility] [id number], [place] [address] Nov, IMMUNIZATIONS No Known Immunizations SOCIAL HISTORY Never Assessed REASON FOR VISIT MAT F/U PLAN OF CARE Activity Details Follow Up 4 Weeks Reason: VITAL SIGNS Height 68 in 2018-01-30 Weight 121.8 lbs 2018-01-30 Heart Rate 48 bpm 2018-01-30 Respiratory Rate 18 2018-01-30 BMI 18.52 kg/m2 2018-01-30 Blood pressure systolic 96 mmHg 2018-01-30 Blood pressure diastolic 58 mmHg 2018-01-30 MEDICATIONS Medication Instructions Dosage Frequency Start Date End Date Duration Status ProAir HFA 108 (90 Base) MCG/ACT Inhalation every 4 hrs. Please voucher 2 puffs as needed Jun, Active Low-Dose Aspirin 81 MG Orally Once a day 1 tablet 24h Active Suboxone 8-2 MG Sublingual Once a day 2 film under the tongue and allow to dissolve 24h Dec, 14 days Active RESULTS No Results PROCEDURES Procedure Date Ordered Result Body Site DRUG TEST PRSMV CHEM ANLYZR Jan 30, 2018 DRUG SCREEN AMPHETAMINES /2 Jan 30, 2018 INSTRUCTIONS MEDICATIONS ADMINISTERED No Known Medications [...]
--- OUTSIDE RECORDS SUMMARY | 2018-04-14 14:48 | XMS REPORT ---
Author Author CONOR GO Organization [facility] Address [address] [place] [address] Care Team Providers Care Brass Plater Name Role Phone CONOR GO Unavailable PROBLEMS Type Condition ICD9-CM Code MBM91-RK Code Onset Dates Condition Status SNOMED Code Problem Low back pain M54.5 Active 234139418 Problem Cigarette nicotine dependence with other nicotine-induced disorder F17.218 Active 26340167 Problem Chronic obstructive pulmonary disease, unspecified COPD type J44.9 Active 22462178 Problem PVCs (premature ventricular contractions) I49.3 Active 24118853 Problem Other cardiac arrhythmia I49.8 Active 42922093 Problem Bradycardia R00.1 Active 42048526 Problem PAC (premature atrial contraction) I49.1 Active 640927580 Problem Uncomplicated opioid dependence F11.20 Active 79151948 Problem Marijuana abuse F12.10 Active 78254019 ALLERGIES No Information ENCOUNTERS Encounter Location Date Diagnosis [facility] [address] [place] [address] Mar, [facility] [id number] [place] [address] 88391- 0971 Mar, [facility] [id number] [place] [address] 38873- 1164 Mar, [facility] [address] [place] [address] Feb, Uncomplicated opioid dependence F11.20 [facility] [id number] [place] [address] 38099- 7586 Feb, Uncomplicated opioid dependence F11.20 [facility] [id number] [place] [address] 62977- 2539 Feb, Uncomplicated opioid dependence F11.20 [facility] [address] [place] [address] Feb, Uncomplicated opioid dependence F11.20 [facility] [address] [place] [address] 45351- 1954 Jan, Uncomplicated opioid dependence F11.20 [facility] [address] [place] [address] Jan, Uncomplicated opioid dependence F11.20 [facility] [id number] [place] [address] 39544- 3265 Jan, Uncomplicated opioid dependence F11.20 [facility] [id number] [place] [address] 65728- 9104 Jan, Uncomplicated opioid dependence F11.20 [facility] [address] [place] [address] Jan, Uncomplicated opioid dependence F11.20 [facility] [id number] [place] [address] 20113- 4078 Jan, Uncomplicated opioid dependence F11.20 [facility] [address] [place] [address] Jan, Uncomplicated opioid dependence F11.20 [facility] [id number] [place] [address] 98030- 2379 Jan, Abnormal EKG R94.31 ; PAC (premature atrial contraction) I49.1 ; PVCs (premature ventricular contractions) I49.3 ; Dyspnea on exertion R06.09 ; Chronic obstructive pulmonary disease, unspecified COPD type J44.9 ; History of drug use Z87.898 and Tobacco use Z72.0 [facility] [address] [place] [address] 12174- 4025 Jan, Uncomplicated opioid dependence F11.20 [facility] [address] [place] [address] Jan, Uncomplicated opioid dependence F11.20 [facility] [id number] [place] [address] 72410- 4487 Dec, Chronic obstructive pulmonary disease, unspecified COPD type J44.9 and Uncomplicated opioid dependence F11.20 [facility] [id number] [place] [address] 46585- 5753 Dec, Uncomplicated opioid dependence F11.20 [facility] [address] [place] [address] Dec, Uncomplicated opioid dependence F11.20 [facility] [id number] [place] [address] 90215- 9571 Dec, Uncomplicated opioid dependence F11.20 [facility] [address] [place] [address] Dec, Uncomplicated opioid dependence F11.20 [facility] [address] 38841- 0[address] Dec, [facility] [address] 06989- 8380 Dec, Uncomplicated opioid dependence F11.20 [facility] [id number] [place] [address] 54065- 7205 Dec, [facility] [address] [place] [address] Dec, Uncomplicated opioid dependence F11.20 [facility] [id number] [place] [address] 24686- 7518 Dec, [facility] [address] 15963- 5720 Dec, Uncomplicated opioid dependence F11.20 [facility] [id number] [place] [address] 57399- 9350 Dec, Uncomplicated opioid dependence F11.20 [facility] [id number] [place] [address] 63220- 9673 Dec, [facility] [address] [place] [address] Nov, Uncomplicated opioid dependence F11.20 [facility] [address] 76079- 5142 Nov, Other cardiac arrhythmia I49.8 [facility] [address] [place] [address] Nov, Uncomplicated opioid dependence F11.20 and Marijuana abuse F12.10 [facility] [address] [id number] [address] 13 Nov, 2017 Uncomplicated opioid dependence F11.20 and Bradycardia R00.1 [facility] [id number] [place] [address] 50048- 2710 07 Nov, 2017 [facility] [address] [place] [address] 07 Nov, 2017 Uncomplicated opioid dependence F11.20 and Marijuana abuse F12.10 [facility] [address] [place] [address] October, Uncomplicated opioid dependence F11.20 and Marijuana abuse F12.10 [facility] [id number] [place] [address] 02792- 5197 October, Uncomplicated opioid dependence F11.20 [facility] [id number] [place] [address] 77459- 9975 October, [facility] [address] [place] [address] October, Uncomplicated opioid dependence F11.20 [facility] [id number] [place] [address] 51305- 7668 October, Uncomplicated opioid dependence F11.20 [place] [id number] [place] [address] 19655- 7445 October, Opioid abuse F11.10 and Injection of illicit drug within last 12 months F19.90 [facility] [address] [place] [address] October, Uncomplicated opioid dependence F11.20 and Marijuana abuse F12.10 [facility] [address] [place] [address] 48634- 8412 October, [facility] [address] [place] [address] October, Uncomplicated opioid dependence F11.20 and Marijuana abuse F12.10 [facility] [id number] [place] [address] 24935- 0454 Sep, Chronic obstructive pulmonary disease, unspecified COPD type J44.9 ; Cigarette nicotine dependence with other nicotine-induced disorder F17.218 and PAC (premature atrial contraction) I49.1 [facility] [address] [place] [address] Sep, Uncomplicated opioid dependence F11.20 and Marijuana abuse F12.10 [facility] [id number] [place] [address] 41587- 2293 Sep, [facility] [address] 96786- 7781 Sep, [facility] [address] 20522- 1040 Sep, [facility] [address] 07062- 7976 Jun, [place] [address] 81912- 0990 Jun, [place] [address] 01186- 1531 May, Chronic obstructive pulmonary disease, unspecified COPD type J44.9 [place] [address] 83890- 4698 May, Overflow incontinence of urine N39.490 [place] [address] 62768- 0682 Apr, Bronchitis J40 ; Chronic obstructive pulmonary disease, unspecified COPD type J44.9 and Cigarette nicotine dependence with other nicotine-induced disorder F17.218 [place] [id number] [place] [address] 39727- 3720 Apr, [place] [address] 57689- 7180 Jan, Bronchitis J40 [place] [address] 93142- 8101 Jan, Bronchitis J40 [place] [id number] [place] [address] 85101- 2791 Dec, Bronchitis J40 ; Low back pain M54.5 and Other chronic pain G89.29 [facility] [address] [facility] [id number] [address] Sep, [facility] [address] [facility] [id number] Sep, [facility] [address] [facility] [id number], [place] [address] Nov, [facility] [address] [facility] [id number] [address]134 Nov, IMMUNIZATIONS No Known Immunizations SOCIAL HISTORY Never Assessed REASON FOR VISIT suboxone rx (02/17-03/02) PLAN OF CARE VITAL SIGNS MEDICATIONS Medication Instructions Dosage Frequency Start Date End Date Duration Status Suboxone 8-2 MG Sublingual Once a day 2 film under the tongue and allow to dissolve 24h Dec, 14 days Active RESULTS No Results PROCEDURES No Known [...]
--- OUTSIDE RECORDS SUMMARY | 2018-04-14 14:48 | XMS REPORT ---
Author Author CONOR GO Organization [facility] Address [address] [place] [address] Care Team Providers Care Clerical Order Filler Name Role Phone CONOR GO Unavailable PROBLEMS Type Condition ICD9-CM Code ZPX00-SX Code Onset Dates Condition Status SNOMED Code Problem Low back pain M54.5 Active 654845612 Problem Cigarette nicotine dependence with other nicotine-induced disorder F17.218 Active 13725296 Problem Chronic obstructive pulmonary disease, unspecified COPD type J44.9 Active 21708687 Problem PVCs (premature ventricular contractions) I49.3 Active 34667183 Problem Other cardiac arrhythmia I49.8 Active 31538302 Problem Bradycardia R00.1 Active 16364777 Problem PAC (premature atrial contraction) I49.1 Active 795830543 Problem Uncomplicated opioid dependence F11.20 Active 33617995 Problem Marijuana abuse F12.10 Active 11170953 ALLERGIES No Information ENCOUNTERS Encounter Location Date Diagnosis [facility] [address] [place] [address] Mar, [facility] [id number] [place] [address] 91910- 4974 Mar, [facility] [id number] [place] [address] 58436- 6238 Mar, Uncomplicated opioid dependence F11.20 [facility] [address] [place] [address] Feb, Uncomplicated opioid dependence F11.20 [facility] [id number] [place] [address] 32562- 2791 Feb, Uncomplicated opioid dependence F11.20 [facility] [id number] [place] [address] 05901- 6412 Feb, Uncomplicated opioid dependence F11.20 [facility] [address] [place] [address] Feb, Uncomplicated opioid dependence F11.20 [facility] [id number] [place] [address] 68860- 9797 Jan, Uncomplicated opioid dependence F11.20 [facility] [address] [place] [address] Jan, Uncomplicated opioid dependence F11.20 [facility] [id number] [place] [address] 50475- 9878 Jan, Uncomplicated opioid dependence F11.20 [facility] [address] [address] 1748 Jan, Uncomplicated opioid dependence F11.20 [facility] [address] [place] [address] Jan, Uncomplicated opioid dependence F11.20 [facility] [address] 41867- 8453 Jan, Uncomplicated opioid dependence F11.20 [facility] [address] [place] [address] Jan, Uncomplicated opioid dependence F11.20 [facility] [id number] [place] [address] 42607- 4933 Jan, Abnormal EKG R94.31 ; PAC (premature atrial contraction) I49.1 ; PVCs (premature ventricular contractions) I49.3 ; Dyspnea on exertion R06.09 ; Chronic obstructive pulmonary disease, unspecified COPD type J44.9 ; History of drug use Z87.898 and Tobacco use Z72.0 [facility] [id number] [place] [address] 20046- 6265 Jan, Uncomplicated opioid dependence F11.20 [facility] [address] [place] [address] Jan, Uncomplicated opioid dependence F11.20 [facility] [id number] [place] [address] 29393- 0120 Dec, Chronic obstructive pulmonary disease, unspecified COPD type J44.9 and Uncomplicated opioid dependence F11.20 [facility] [id number] [place] [address] 46508- 3454 Dec, Uncomplicated opioid dependence F11.20 [facility] [address] [place] [address] Dec, Uncomplicated opioid dependence F11.20 [facility] [address] 75414- 5837 Dec, Uncomplicated opioid dependence F11.20 [facility] [address] [place] [address] Dec, Uncomplicated opioid dependence F11.20 [facility] [address] 47[address]- 2538 Dec, [facility] [address] 62443- 0794 Dec, Uncomplicated opioid dependence F11.20 [facility] [address] 32422- 7902 Dec, [facility] [address] [place] [address] Dec, Uncomplicated opioid dependence F11.20 [facility] [id number] [place] [address] 85266- 9735 Dec, [facility] [address] 57464- 3395 Dec, Uncomplicated opioid dependence F11.20 [facility] [address] 51837- 1765 Dec, Uncomplicated opioid dependence F11.20 [facility] [address] 66620- 1421 Dec, [facility] [address] [place] [address] Nov, Uncomplicated opioid dependence F11.20 [facility] [address] 57916- 7560 Nov, Other cardiac arrhythmia I49.8 [facility] [address] [place] [address] Nov, Uncomplicated opioid dependence F11.20 and Marijuana abuse F12.10 [facility] [address] [address] 13 Nov, 2017 Uncomplicated opioid dependence F11.20 and Bradycardia R00.1 [facility] [id number] [place] [address] 03392- 2697 Nov, [facility] [address] [place] [address] Nov, Uncomplicated opioid dependence F11.20 and Marijuana abuse F12.10 [facility] [address] [place] [address] October, Uncomplicated opioid dependence F11.20 and Marijuana abuse F12.10 [facility] [id number] [place] [address] 37418- 6866 October, Uncomplicated opioid dependence F11.20 [facility] [id number] [place] [address] 93641- 3856 October, [facility] [address] [place] [address] October, Uncomplicated opioid dependence F11.20 [facility] [id number] [place] [address] 69229- 6004 October, Uncomplicated opioid dependence F11.20 [facility] [id number] [place] [address] 77177- 8437 October, Opioid abuse F11.10 and Injection of illicit drug within last 12 months F19.90 [facility] [address] [place] [address] October, Uncomplicated opioid dependence F11.20 and Marijuana abuse F12.10 [facility] [address] [place] [address] 07550- 0881 October, [facility] [address] [place] [address] October, Uncomplicated opioid dependence F11.20 and Marijuana abuse F12.10 [facility] [address] [place] [address] 15443- 2899 Sep, Chronic obstructive pulmonary disease, unspecified COPD type J44.9 ; Cigarette nicotine dependence with other nicotine-induced disorder F17.218 and PAC (premature atrial contraction) I49.1 [facility] [address] [place] [address] Sep, Uncomplicated opioid dependence F11.20 and Marijuana abuse F12.10 [facility] [id number] [place] [address] 41163- 2537 Sep, [facility] [address] 39[address]- 4419 Sep, [facility] [address] 47206- 9335 Sep, [facility] [address] 91385- 5443 Jun, [place] [address] 19104- 9495 Jun, [place] [address] 27125- 2879 May, Chronic obstructive pulmonary disease, unspecified COPD type J44.9 [place] [address] 87838- 2337 May, Overflow incontinence of urine N39.490 [place] [address] 81790- 1221 Apr, Bronchitis J40 ; Chronic obstructive pulmonary disease, unspecified COPD type J44.9 and Cigarette nicotine dependence with other nicotine-induced disorder F17.218 [place] [id number] [place] [address] 86992- 0315 Apr, [facility] [address] 90536- 2755 Jan, Bronchitis J40 [facility] [address] 33304- 9468 Jan, Bronchitis J40 [facility] [address] 77546- 9633 Dec, Bronchitis J40 ; Low back pain M54.5 and Other chronic pain G89.29 [facility] [address] [facility] [id number] [address] Sep, [facility] [id number] [address] Sep, [facility] [address] [facility] [id number] [address] Nov, [facility] [id number] [address] Nov, IMMUNIZATIONS No Known Immunizations SOCIAL HISTORY Never Assessed REASON FOR VISIT suboxone rx (03/03-03/07) PLAN OF CARE VITAL SIGNS MEDICATIONS Medication Instructions Dosage Frequency Start Date End Date Duration Status Suboxone 8-2 MG Sublingual Once a day 2 film under the tongue and allow to dissolve 24h Dec, 5 days Active RESULTS No Results PROCEDURES No [...]
--- OUTSIDE RECORDS SUMMARY | 2018-04-14 14:49 | XMS REPORT ---
Author Author ELSA SANTOSH [facility] Address [address] [place] [address] [address] Care Drive In Waiter/Waitress Name Role Phone SANTOSH HUNTER Unavailable PROBLEMS Type Condition ICD9-CM Code HRM02-SX Code Onset Dates Condition Status SNOMED Code Problem Low back pain M54.5 Active 495018168 Problem Cigarette nicotine dependence with other nicotine-induced disorder F17.218 Active 23638344 Problem Chronic obstructive pulmonary disease, unspecified COPD type J44.9 Active 78792776 Problem PVCs (premature ventricular contractions) I49.3 Active 41893528 Problem Other cardiac arrhythmia I49.8 Active 73636264 Problem Bradycardia R00.1 Active 41769909 Problem PAC (premature atrial contraction) I49.1 Active 290007801 Problem Uncomplicated opioid dependence F11.20 Active 78057546 Problem Marijuana abuse F12.10 Active 67969419 ALLERGIES No Information ENCOUNTERS Encounter Location Date Diagnosis [facility] [address] [address] Mar, [facility] [address] [place] [address] Feb, [facility] [id number] [place] [address] 49818- 0958 Feb, Uncomplicated opioid dependence F11.20 [facility] [address] [place] [address] Feb, Uncomplicated opioid dependence F11.20 [facility] [id number] [place] [address] 71021- 6225 Jan, Uncomplicated opioid dependence F11.20 [facility] [address] [place] [address] Jan, Uncomplicated opioid dependence F11.20 [facility] [id number] [place] [address] 63424- 2431 Jan, Uncomplicated opioid dependence F11.20 [facility] [id number] [place] [address] 66525- 4316 Jan, Uncomplicated opioid dependence F11.20 [facility] [address] [place] [address] Jan, Uncomplicated opioid dependence F11.20 [facility] [id number] [place] [address] 10585- 0784 Jan, Uncomplicated opioid dependence F11.20 [facility] [address] [place] [address] Jan, Uncomplicated opioid dependence F11.20 [facility] [address] 45977- 9728 Jan, Abnormal EKG R94.31 ; PAC (premature atrial contraction) I49.1 ; PVCs (premature ventricular contractions) I49.3 ; Dyspnea on exertion R06.09 ; Chronic obstructive pulmonary disease, unspecified COPD type J44.9 ; History of drug use Z87.898 and Tobacco use Z72.0 [facility] [id number] [place] [address] 38223- 0342 Jan, Uncomplicated opioid dependence F11.20 [facility] [address] [place] [address] Jan, Uncomplicated opioid dependence F11.20 [facility] [id number] [place] [address] 78156- 7441 Dec, Chronic obstructive pulmonary disease, unspecified COPD type J44.9 and Uncomplicated opioid dependence F11.20 [facility] [id number] [place] [address] 74615- 8681 Dec, Uncomplicated opioid dependence F11.20 [facility] [address] [place] [address] Dec, Uncomplicated opioid dependence F11.20 [facility] [id number] [place] [address] 84007- 0564 Dec, Uncomplicated opioid dependence F11.20 [facility] [address] [place] [address] Dec, Uncomplicated opioid dependence F11.20 [facility] [id number] [place] [address] 57265- 1748 Dec, [facility] [address] 22864- 2124 Dec, Uncomplicated opioid dependence F11.20 [facility] [address] 85917- 1363 Dec, [facility] [address] [place] [address] Dec, Uncomplicated opioid dependence F11.20 [facility] [id number] [place] [address] 84016- 3125 Dec, [facility] [address] 80201- 1428 Dec, Uncomplicated opioid dependence F11.20 [facility] [address] 89196- 9868 Dec, Uncomplicated opioid dependence F11.20 [facility] [id number] [place] [address] 09749- 9114 Dec, [facility] [address] [place] [address] Nov, Uncomplicated opioid dependence F11.20 [facility] [id number] [place] [address] 47834- 0276 Nov, Other cardiac arrhythmia I49.8 [facility] [address] [place] [address] Nov, Uncomplicated opioid dependence F11.20 and Marijuana abuse F12.10 [facility] [id number] [place] [address] 28062- 0643 Nov, Uncomplicated opioid dependence F11.20 and Bradycardia R00.1 [facility] [id number] [place] [address] 34416- 8015 Nov, [facility] [address] [place] [address] Nov, Uncomplicated opioid dependence F11.20 and Marijuana abuse F12.10 [facility] [address] [place] [address] October, Uncomplicated opioid dependence F11.20 and Marijuana abuse F12.10 [facility] [id number] [place] [address] 35133- 9652 October, Uncomplicated opioid dependence F11.20 [facility] [id number] [place] [address] 37954- 2804 October, [facility] [address] [place] [address] October, Uncomplicated opioid dependence F11.20 [facility] [id number] [place] [address] 64000- 7362 October, Uncomplicated opioid dependence F11.20 [facility] [id number] [place] [address] 76055- 0084 October, Opioid abuse F11.10 and Injection of illicit drug within last 12 months F19.90 [facility] [address] [place] [address] October, Uncomplicated opioid dependence F11.20 and Marijuana abuse F12.10 [facility] [id number] [place] [address] 91431- 8533 October, [facility] [address] [place] [address] October, Uncomplicated opioid dependence F11.20 and Marijuana abuse F12.10 [facility] [id number] [place] [address] 51328- 4947 Sep, Chronic obstructive pulmonary disease, unspecified COPD type J44.9 ; Cigarette nicotine dependence with other nicotine-induced disorder F17.218 and PAC (premature atrial contraction) I49.1 [facility] [address] [place] [address] Sep, Uncomplicated opioid dependence F11.20 and Marijuana abuse F12.10 [facility] [id number] [place] [address] 47072- 0870 Sep, [facility] [address] 29357- 5265 Sep, [facility] [id number] [place] [address] 99130- 6707 Sep, [facility] [id number] [place] [address] 74091- 4171 Jun, [facility] [id number] [place] [address] 41297- 8397 Jun, [facility] [address] 11743- 4935 May, Chronic obstructive pulmonary disease, unspecified COPD type J44.9 [facility] [id number] [place] [address] 55482- 5442 May, Overflow incontinence of urine N39.490 [facility] [id number] [place] [address] 87112- 3223 Apr, Bronchitis J40 ; Chronic obstructive pulmonary disease, unspecified COPD type J44.9 and Cigarette nicotine dependence with other nicotine-induced disorder F17.218 [facility] [id number] [place] [address] 82254- 3463 Apr, [facility] [id number] [place] [address] 16106- 3819 Jan, Bronchitis J40 [facility] [id number] [place] [address] 75799- 6081 Jan, Bronchitis J40 [facility] [id number] [place] [address] 78605- 7755 Dec, Bronchitis J40 ; Low back pain M54.5 and Other chronic pain G89.29 [facility] [id number] [place] [address] 01751- 7467 14 Sep, 2014 [facility] [id number] [place] [address] 13519- 3575 13 Sep, 2014 [facility] [id number] [place] [address] 56644- 1153 Nov, [facility] [address] [facility] [id number] [address] Nov, IMMUNIZATIONS No Known Immunizations SOCIAL HISTORY Never Assessed REASON FOR VISIT subab-f/u PLAN OF CARE Activity Details Follow Up 2 Weeks Reason:SUBABFU VITAL SIGNS MEDICATIONS Unknown Medications RESULTS No Results PROCEDURES Procedure Date Ordered Result Body Site Alcohol and/or drug services Jan 12, 2018 INSTRUCTIONS MEDICATIONS ADMINISTERED No Known Medications [...]
--- OUTSIDE RECORDS SUMMARY | 2018-04-14 14:49 | XMS REPORT ---
Author Author CONOR GO Organization [facility] Address [address] [place] [address] Care Team Providers Care Supervisor [employer] Name Role Phone CONOR GO Unavailable PROBLEMS Type Condition ICD9-CM Code [id number] Code Onset Dates Condition Status SNOMED Code Problem Low back pain M54.5 Active 043836987 Problem Cigarette nicotine dependence with other nicotine-induced disorder F17.218 Active 92953836 Problem Chronic obstructive pulmonary disease, unspecified COPD type J44.9 Active 58415636 Problem PVCs (premature ventricular contractions) I49.3 Active 30845741 Problem Other cardiac arrhythmia I49.8 Active 02271530 Problem Bradycardia R00.1 Active 22191092 Problem PAC (premature atrial contraction) I49.1 Active 693601254 Problem Uncomplicated opioid dependence F11.20 Active 32499002 Problem Marijuana abuse F12.10 Active 32342539 ALLERGIES No Information ENCOUNTERS Encounter Location Date Diagnosis [facility] [address] [address] Mar, [facility] [address] [place] [address] Feb, [facility] [id number] [place] [address] 05734[address] Feb, Uncomplicated opioid dependence F11.20 [facility] [address] [place] [address] Feb, Uncomplicated opioid dependence F11.20 [facility] [id number] [place] [address] 92251- 0330 Jan, Uncomplicated opioid dependence F11.20 [facility] [address] [place] [address] Jan, Uncomplicated opioid dependence F11.20 [facility] [id number] [place] [address] 78614- 3385 Jan, Uncomplicated opioid dependence F11.20 [facility] [id number] [place] [address] 20100- 1881 Jan, Uncomplicated opioid dependence F11.20 [facility] [address] [place] [address] Jan, Uncomplicated opioid dependence F11.20 [facility] [id number] [place] [address] 83423- 1664 Jan, Uncomplicated opioid dependence F11.20 [facility] [address] [place] [address] Jan, Uncomplicated opioid dependence F11.20 [facility] [address] [address] Jan, Abnormal EKG R94.31 ; PAC (premature atrial contraction) I49.1 ; PVCs (premature ventricular contractions) I49.3 ; Dyspnea on exertion R06.09 ; Chronic obstructive pulmonary disease, unspecified COPD type J44.9 ; History of drug use Z87.898 and Tobacco use Z72.0 [facility] [id number] [place] [address] 33313- 6591 Jan, Uncomplicated opioid dependence F11.20 [facility] [address] [place] [address] Jan, Uncomplicated opioid dependence F11.20 [facility] [id number] [place] [address] 84870- 6832 Dec, Chronic obstructive pulmonary disease, unspecified COPD type J44.9 and Uncomplicated opioid dependence F11.20 [facility] [id number] [place] [address] 70248- 0893 Dec, Uncomplicated opioid dependence F11.20 [facility] [address] [place] [address] Dec, Uncomplicated opioid dependence F11.20 [facility] [id number] [place] [address] 54287- 1502 Dec, Uncomplicated opioid dependence F11.20 [facility] [address] [place] [address] Dec, Uncomplicated opioid dependence F11.20 [facility] [id number] [place] [address] 49727- 4384 Dec, [facility] [address] [address] Dec, Uncomplicated opioid dependence F11.20 [facility] [address] [address] Dec, [facility] [address] [place] [address] Dec, Uncomplicated opioid dependence F11.20 [facility] [id number] [place] [address] 66929- 1931 Dec, [facility] [address] [address] Dec, Uncomplicated opioid dependence F11.20 [facility] [address] 8[address]17- 0311 Dec, Uncomplicated opioid dependence F11.20 [facility] [id number] [place] [address] 28094- 0744 Dec, [facility] [address] [place] [address] Nov, Uncomplicated opioid dependence F11.20 [facility] [id number] [place] [address] 94213- 5578 Nov, Other cardiac arrhythmia I49.8 [facility] [address] [place] [address] Nov, Uncomplicated opioid dependence F11.20 and Marijuana abuse F12.10 [facility] [id number] [place] [address] 80691- 5997 Nov, Uncomplicated opioid dependence F11.20 and Bradycardia R00.1 [facility] [id number] [place] [address] 43626- 3287 Nov, [facility] [address] [place] [address] Nov, Uncomplicated opioid dependence F11.20 and Marijuana abuse F12.10 [facility] [address] [place] [address] October, Uncomplicated opioid dependence F11.20 and Marijuana abuse F12.10 [facility] [id number] [place] [address] 94823- 9777 October, Uncomplicated opioid dependence F11.20 [facility] [id number] [place] [address] 94759- 7740 October, [facility] [address] [place] [address] October, Uncomplicated opioid dependence F11.20 [facility] [id number] [place] [address] 46357- 4993 October, Uncomplicated opioid dependence F11.20 [facility] [id number] [place] [address] 53821- 7539 October, Opioid abuse F11.10 and Injection of illicit drug within last 12 months F19.90 [facility] [address] [place] [address] October, Uncomplicated opioid dependence F11.20 and Marijuana abuse F12.10 [facility] [id number] [place] [address] 79863- 8797 October, [facility] [address] [place] [address] October, Uncomplicated opioid dependence F11.20 and Marijuana abuse F12.10 [facility] [id number] [place] [address] 12309- 3519 Sep, Chronic obstructive pulmonary disease, unspecified COPD type J44.9 ; Cigarette nicotine dependence with other nicotine-induced disorder F17.218 and PAC (premature atrial contraction) I49.1 [facility] [address] [place] [address] Sep, Uncomplicated opioid dependence F11.20 and Marijuana abuse F12.10 [facility] [id number] [place] [address] 00487- 2804 Sep, [facility] [address] [address] 0[address] Sep, [facility] [address] [address] Sep, [facility] [id number] [place] [address] 19843- 6669 Jun, [facility] [id number] [place] [address] 74884- 4173 Jun, [facility] [id number] [place] [address] 10192- 7930 May, Chronic obstructive pulmonary disease, unspecified COPD type J44.9 [facility] [id number] [place] [address] 02781- 1345 May, Overflow incontinence of urine N39.490 [facility] [id number] [place] [address] 35736- 1431 Apr, Bronchitis J40 ; Chronic obstructive pulmonary disease, unspecified COPD type J44.9 and Cigarette nicotine dependence with other nicotine-induced disorder F17.218 [facility] [id number] [place] [address] 95255- 0836 Apr, [facility] [id number] [place] [address] 21353- 8517 Jan, Bronchitis J40 [facility] [address] [place] [address] 06591- 1277 Jan, Bronchitis J40 [facility] [id number] [place] [address] 34226- 0849 Dec, Bronchitis J40 ; Low back pain M54.5 and Other chronic pain G89.29 [facility] [id number] [place] [address] 67133- 1725 14 Sep, 2014 [facility] [id number] [place] [address] 03379- 2178 13 Sep, 2014 [facility] [address] [place] [address] 79267- 6030 Nov, [place] [address] [facility] [id number] [place] [address] Nov, IMMUNIZATIONS No Known Immunizations SOCIAL HISTORY Never Assessed REASON FOR VISIT Transport, ATS: Routine Follow Up PLAN OF CARE VITAL SIGNS MEDICATIONS Unknown Medications RESULTS No Results PROCEDURES No Known procedures [...]
--- OUTSIDE RECORDS SUMMARY | 2018-04-14 14:49 | XMS REPORT ---
Author Author CONOR GO Organization [facility] Address [address] [place] [address] Care Team Providers Care Greenhouse Assistant Name Role Phone CONOR GO Unavailable PROBLEMS Type Condition ICD9-CM Code OXU74-TE Code Onset Dates Condition Status SNOMED Code Problem Low back pain M54.5 Active 557368301 Problem Cigarette nicotine dependence with other nicotine-induced disorder F17.218 Active 41168741 Problem Chronic obstructive pulmonary disease, unspecified COPD type J44.9 Active 85496492 Problem PVCs (premature ventricular contractions) I49.3 Active 86019062 Problem Other cardiac arrhythmia I49.8 Active 51338510 Problem Bradycardia R00.1 Active 40987384 Problem PAC (premature atrial contraction) I49.1 Active 576170999 Problem Uncomplicated opioid dependence F11.20 Active 78790032 Problem Marijuana abuse F12.10 Active 90940389 ALLERGIES No Information ENCOUNTERS Encounter Location Date Diagnosis [facility] [address] [address] Mar, [facility] [address] [place] [address] Feb, [facility] [id number] [place] [address] 87426- 8523 Feb, Uncomplicated opioid dependence F11.20 [facility] [address] [place] [address] Feb, Uncomplicated opioid dependence F11.20 [facility] [id number] [place] [address] 78777- 1438 Jan, Uncomplicated opioid dependence F11.20 [facility] [address] [place] [address] Jan, Uncomplicated opioid dependence F11.20 [facility] [id number] [place] [address] 15292- 3961 Jan, Uncomplicated opioid dependence F11.20 [facility] [id number] [place] [address] 91502- 2027 Jan, Uncomplicated opioid dependence F11.20 [facility] [address] [place] [address] Jan, Uncomplicated opioid dependence F11.20 [facility] [id number] [place] [address] 18481- 9895 Jan, Uncomplicated opioid dependence F11.20 [facility] [address] [place] [address] Jan, Uncomplicated opioid dependence F11.20 [facility] [address] 77306- 3402 Jan, Abnormal EKG R94.31 ; PAC (premature atrial contraction) I49.1 ; PVCs (premature ventricular contractions) I49.3 ; Dyspnea on exertion R06.09 ; Chronic obstructive pulmonary disease, unspecified COPD type J44.9 ; History of drug use Z87.898 and Tobacco use Z72.0 [facility] [id number] [place] [address] 35431- 4072 Jan, Uncomplicated opioid dependence F11.20 [facility] [address] [place] [address] Jan, Uncomplicated opioid dependence F11.20 [facility] [id number] [place] [address] 94561- 3673 Dec, Chronic obstructive pulmonary disease, unspecified COPD type J44.9 and Uncomplicated opioid dependence F11.20 [facility] [id number] [place] [address] 40187- 7138 Dec, Uncomplicated opioid dependence F11.20 [facility] [address] [place] [address] Dec, Uncomplicated opioid dependence F11.20 [facility] [id number] [place] [address] 07926- 7225 Dec, Uncomplicated opioid dependence F11.20 [facility] [address] [place] [address] Dec, Uncomplicated opioid dependence F11.20 [facility] [id number] [place] [address] 55126- 1275 Dec, [facility] [address] [address]- 4997 Dec, Uncomplicated opioid dependence F11.20 [facility] [address] 13796- 5035 Dec, [facility] [address] [place] [address] Dec, Uncomplicated opioid dependence F11.20 [facility] [id number] [place] [address] 16225- 4206 Dec, [facility] [address] 49622- 6521 Dec, Uncomplicated opioid dependence F11.20 [facility] [address] 52494- 7452 Dec, Uncomplicated opioid dependence F11.20 [facility] [id number] [place] [address] 78941- 7509 Dec, [facility] [address] [place] [address] Nov, Uncomplicated opioid dependence F11.20 [facility] [id number] [place] [address] 01527- 4514 Nov, Other cardiac arrhythmia I49.8 [facility] [address] [place] [address] Nov, Uncomplicated opioid dependence F11.20 and Marijuana abuse F12.10 [facility] [id number] [place] [address] 95955- 8438 Nov, Uncomplicated opioid dependence F11.20 and Bradycardia R00.1 [facility] [id number] [place] [address] 17543- 2643 Nov, [facility] [address] [place] [address] Nov, Uncomplicated opioid dependence F11.20 and Marijuana abuse F12.10 [facility] [address] [place] [address] October, Uncomplicated opioid dependence F11.20 and Marijuana abuse F12.10 [facility] [id number] [place] [address] 78373- 8543 October, Uncomplicated opioid dependence F11.20 [facility] [id number] [place] [address] 52684- 8829 October, [facility] [address] [place] [address] October, Uncomplicated opioid dependence F11.20 [facility] [id number] [place] [address] 40598- 4920 October, Uncomplicated opioid dependence F11.20 [facility] [id number] [place] [address] 56879- 4064 October, Opioid abuse F11.10 and Injection of illicit drug within last 12 months F19.90 [facility] [address] [place] [address] October, Uncomplicated opioid dependence F11.20 and Marijuana abuse F12.10 [facility] [id number] [place] [address] 07250- 5080 October, [facility] [address] [place] [address] October, Uncomplicated opioid dependence F11.20 and Marijuana abuse F12.10 [facility] [id number] [place] [address] 68067- 0833 Sep, Chronic obstructive pulmonary disease, unspecified COPD type J44.9 ; Cigarette nicotine dependence with other nicotine-induced disorder F17.218 and PAC (premature atrial contraction) I49.1 [facility] [address] [place] [address] Sep, Uncomplicated opioid dependence F11.20 and Marijuana abuse F12.10 [facility] [id number] [place] [address] 35485- 2190 Sep, [facility] [address] 7[address]88- 4646 Sep, [facility] [address] [address]647 Sep, [facility] [id number] [place] [address] 11164- 3696 Jun, [facility] [address] [place] [address] 91159- 1014 Jun, [facility] [id number] [place] [address] 96811- 6161 May, Chronic obstructive pulmonary disease, unspecified COPD type J44.9 [facility] [id number] [place] [address] 75188- 9866 May, Overflow incontinence of urine N39.490 [facility] [id number] [place] [address] 29887- 9393 Apr, Bronchitis J40 ; Chronic obstructive pulmonary disease, unspecified COPD type J44.9 and Cigarette nicotine dependence with other nicotine-induced disorder F17.218 [facility] [id number] [place] [address] 25963- 3279 Apr, [facility] [id number] [place] [address] 77546- 9452 Jan, Bronchitis J40 [facility] [address] [place] [address] 54790- 2141 Jan, Bronchitis J40 [facility] [id number] [place] [address] 36303- 8608 Dec, Bronchitis J40 ; Low back pain M54.5 and Other chronic pain G89.29 [facility] [id number] [place] [address] 39018- 2053 14 Sep, 2014 [facility] [id number] [place] [address] 05981- 2315 13 Sep, 2014 [facility] [address] [place] [address] 75022- 4608 Nov, [place] [address] [facility] [id number] [place] [address] Nov, IMMUNIZATIONS No Known Immunizations SOCIAL HISTORY Never Assessed REASON FOR VISIT Transport, SOCWK: Follow Up, ATS: Routine Follow Up PLAN OF CARE [...]
--- OUTSIDE RECORDS SUMMARY | 2018-04-14 14:49 | XMS REPORT ---
Author Author CONOR GO Organization [facility] Address [address] [place] [address] Care Team Providers Care Slip Cover Estimator Name Role Phone CONOR GO Unavailable PROBLEMS Type Condition ICD9-CM Code [id number] Code Onset Dates Condition Status SNOMED Code Problem Low back pain M54.5 Active 165924986 Problem Cigarette nicotine dependence with other nicotine-induced disorder F17.218 Active 62819708 Problem Chronic obstructive pulmonary disease, unspecified COPD type J44.9 Active 06027088 Problem PVCs (premature ventricular contractions) I49.3 Active 99226182 Problem Other cardiac arrhythmia I49.8 Active 83601036 Problem Bradycardia R00.1 Active 61339084 Problem PAC (premature atrial contraction) I49.1 Active 852057841 Problem Uncomplicated opioid dependence F11.20 Active 29880880 Problem Marijuana abuse F12.10 Active 77723925 ALLERGIES No Information ENCOUNTERS Encounter Location Date Diagnosis [facility] [address] [address] Mar, [facility] [address] [place] [address] Feb, [facility] [id number] [place] [address] 8[address]31- [address]187 Feb, Uncomplicated opioid dependence F11.20 [facility] [address] [place] [address] Feb, Uncomplicated opioid dependence F11.20 [facility] [id number] [place] [address] 58208- 5306 Jan, Uncomplicated opioid dependence F11.20 [facility] [address] [place] [address] Jan, Uncomplicated opioid dependence F11.20 [facility] [id number] [place] [address] 96119- 0968 Jan, Uncomplicated opioid dependence F11.20 [facility] [id number] [place] [address] 80324- 7642 Jan, Uncomplicated opioid dependence F11.20 [facility] [address] [place] [address] Jan, Uncomplicated opioid dependence F11.20 [facility] [id number] [place] [address] 17055- 2427 Jan, Uncomplicated opioid dependence F11.20 [facility] [address] [place] [address] Jan, Uncomplicated opioid dependence F11.20 [facility] [address] [address] Jan, Abnormal EKG R94.31 ; PAC (premature atrial contraction) I49.1 ; PVCs (premature ventricular contractions) I49.3 ; Dyspnea on exertion R06.09 ; Chronic obstructive pulmonary disease, unspecified COPD type J44.9 ; History of drug use Z87.898 and Tobacco use Z72.0 [facility] [id number] [place] [address] 69931- 8625 Jan, Uncomplicated opioid dependence F11.20 [facility] [address] [place] [address] Jan, Uncomplicated opioid dependence F11.20 [facility] [id number] [place] [address] 61941- 5138 Dec, Chronic obstructive pulmonary disease, unspecified COPD type J44.9 and Uncomplicated opioid dependence F11.20 [facility] [id number] [place] [address] 21738- 2912 Dec, Uncomplicated opioid dependence F11.20 [facility] [address] [place] [address] Dec, Uncomplicated opioid dependence F11.20 [facility] [id number] [place] [address] 37810- 0409 Dec, Uncomplicated opioid dependence F11.20 [facility] [address] [place] [address] Dec, Uncomplicated opioid dependence F11.20 [facility] [id number] [place] [address] 48968- 6221 Dec, [facility] [address] [address] Dec, Uncomplicated opioid dependence F11.20 [facility] [address] [address] Dec, [facility] [address] [place] [address] Dec, Uncomplicated opioid dependence F11.20 [facility] [id number] [place] [address] 03219- 2215 Dec, [facility] [address] 97131[address] Dec, Uncomplicated opioid dependence F11.20 [facility] [address] [address] 6[address] Dec, Uncomplicated opioid dependence F11.20 [facility] [id number] [place] [address] 32508- 6888 Dec, [facility] [address] [place] [address] Nov, Uncomplicated opioid dependence F11.20 [facility] [id number] [place] [address] 12774- 2372 Nov, Other cardiac arrhythmia I49.8 [facility] [address] [place] [address] Nov, Uncomplicated opioid dependence F11.20 and Marijuana abuse F12.10 [facility] [id number] [place] [address] 10828- 5277 Nov, Uncomplicated opioid dependence F11.20 and Bradycardia R00.1 [facility] [id number] [place] [address] 13714- 3423 Nov, [facility] [address] [place] [address] Nov, Uncomplicated opioid dependence F11.20 and Marijuana abuse F12.10 [facility] [address] [place] [address] October, Uncomplicated opioid dependence F11.20 and Marijuana abuse F12.10 [facility] [id number] [place] [address] 70044- 7784 October, Uncomplicated opioid dependence F11.20 [facility] [id number] [place] [address] 58713- 5791 October, [facility] [address] [place] [address] October, Uncomplicated opioid dependence F11.20 [facility] [id number] [place] [address] 79707- 5976 October, Uncomplicated opioid dependence F11.20 [facility] [id number] [place] [address] 19093- 0396 October, Opioid abuse F11.10 and Injection of illicit drug within last 12 months F19.90 [facility] [address] [place] [address] October, Uncomplicated opioid dependence F11.20 and Marijuana abuse F12.10 [facility] [id number] [place] [address] 37091- 8256 October, [facility] [address] [place] [address] October, Uncomplicated opioid dependence F11.20 and Marijuana abuse F12.10 [facility] [id number] [place] [address] 10730- 9812 Sep, Chronic obstructive pulmonary disease, unspecified COPD type J44.9 ; Cigarette nicotine dependence with other nicotine-induced disorder F17.218 and PAC (premature atrial contraction) I49.1 [facility] [address] [place] [address] Sep, Uncomplicated opioid dependence F11.20 and Marijuana abuse F12.10 [facility] [id number] [place] [address] 10994- 9018 Sep, [facility] [address] [address] Sep, [facility] [address] [address] Sep, [facility] [id number] [place] [address] 05731- 7672 Jun, [facility] [id number] [place] [address] 14879- 5708 Jun, [facility] [id number] [place] [address] 10295- 3779 May, Chronic obstructive pulmonary disease, unspecified COPD type J44.9 [facility] [id number] [place] [address] May, Overflow incontinence of urine N39.490 [facility] [id number] [place] [address] 85942- 3101 Apr, Bronchitis J40 ; Chronic obstructive pulmonary disease, unspecified COPD type J44.9 and Cigarette nicotine dependence with other nicotine-induced disorder F17.218 [facility] [id number] [place] [address] 89931- 9317 Apr, [facility] [id number] [place] [address] 73784- 6521 Jan, Bronchitis J40 [facility] [address] [place] [address] 72007- 6023 Jan, Bronchitis J40 [facility] [id number] [place] [address] 92674- 7166 Dec, Bronchitis J40 ; Low back pain M54.5 and Other chronic pain G89.29 [facility] [id number] [place] [address] 16583- 7211 14 Sep, 2014 [facility] [id number] [place] [address] 23726- 5048 13 Sep, 2014 [facility] [id number] [place] [address] 43371- 7491 Nov, [place] [id number] [facility] [id number] [address] Nov, IMMUNIZATIONS No Known Immunizations SOCIAL HISTORY Never Assessed REASON FOR VISIT suboxone rx (02/04-02/16) PLAN OF CARE VITAL SIGNS MEDICATIONS Medication Instructions Dosage Frequency Start Date End Date Duration Status Suboxone 8-2 MG Sublingual Once a day 2 film under the tongue and allow to dissolve 24h Dec, 13 days Active RESULTS No Results PROCEDURES No [...]
--- OUTSIDE RECORDS SUMMARY | 2018-04-14 14:49 | XMS REPORT ---
Author Author EL[facility] Address [address] [place] [address] Care Team Providers Care Broomcorn Scraper Name Role Phone SANTOSH HUNTER Unavailable PROBLEMS Type Condition ICD9-CM Code QWW99-HH Code Onset Dates Condition Status SNOMED Code Problem Low back pain M54.5 Active 248972101 Problem Cigarette nicotine dependence with other nicotine-induced disorder F17.218 Active 59814217 Problem Chronic obstructive pulmonary disease, unspecified COPD type J44.9 Active 70652467 Problem PVCs (premature ventricular contractions) I49.3 Active 56245848 Problem Other cardiac arrhythmia I49.8 Active 42335609 Problem Bradycardia R00.1 Active 59724501 Problem PAC (premature atrial contraction) I49.1 Active 672964970 Problem Uncomplicated opioid dependence F11.20 Active 77355162 Problem Marijuana abuse F12.10 Active 35242294 ALLERGIES No Information ENCOUNTERS Encounter Location Date Diagnosis [facility] [address] [address] Mar, [facility] [address] [place] [address] Feb, [facility] [id number] [place] [address] 89396- 0331 Feb, Uncomplicated opioid dependence F11.20 [facility] [address] [place] [address] Feb, [facility] [id number] [place] [address] 96654- 1114 Jan, Uncomplicated opioid dependence F11.20 [facility] [address] [place] [address] Jan, Uncomplicated opioid dependence F11.20 [facility] [id number] [place] [address] 33982- 2397 Jan, Uncomplicated opioid dependence F11.20 [facility] [id number] [place] [address] 37508- 0185 Jan, Uncomplicated opioid dependence F11.20 [facility] [address] [place] [address] Jan, Uncomplicated opioid dependence F11.20 [facility] [id number] [place] [address] 37028- 8223 Jan, Uncomplicated opioid dependence F11.20 [facility] [address] [place] [address] Jan, Uncomplicated opioid dependence F11.20 [facility] [id number] [place] [address] 51515- 1709 Jan, Abnormal EKG R94.31 ; PAC (premature atrial contraction) I49.1 ; PVCs (premature ventricular contractions) I49.3 ; Dyspnea on exertion R06.09 ; Chronic obstructive pulmonary disease, unspecified COPD type J44.9 ; History of drug use Z87.898 and Tobacco use Z72.0 [facility] [id number] [place] [address] 76416- 9591 Jan, Uncomplicated opioid dependence F11.20 [facility] [address] [place] [address] Jan, Uncomplicated opioid dependence F11.20 [facility] [id number] [place] [address] 20871- 5635 Dec, Chronic obstructive pulmonary disease, unspecified COPD type J44.9 and Uncomplicated opioid dependence F11.20 [facility] [id number] [place] [address] 55869- 1935 Dec, Uncomplicated opioid dependence F11.20 [facility] [address] [place] [address] Dec, Uncomplicated opioid dependence F11.20 [facility] [id number] [place] [address] 55753- 2879 Dec, Uncomplicated opioid dependence F11.20 [facility] [address] [place] [address] Dec, Uncomplicated opioid dependence F11.20 [facility] [id number] [place] [address] 01523- 0277 Dec, [facility] [address] [address]- 3072 Dec, Uncomplicated opioid dependence F11.20 [facility] [id number] [place] [address] 59126- 2334 Dec, [facility] [address] [place] [address] Dec, Uncomplicated opioid dependence F11.20 [facility] [id number] [place] [address] 96715- 5426 Dec, [facility] [address] 80744- 4109 Dec, Uncomplicated opioid dependence F11.20 [facility] [address] 13370- 3951 Dec, Uncomplicated opioid dependence F11.20 [facility] [id number] [place] [address] 19198- 7505 Dec, [facility] [address] [place] [address] Nov, Uncomplicated opioid dependence F11.20 [facility] [id number] [place] [address] 05037- 8832 Nov, Other cardiac arrhythmia I49.8 [facility] [address] [place] [address] Nov, Uncomplicated opioid dependence F11.20 and Marijuana abuse F12.10 [facility] [id number] [place] [address] 35289- 2491 Nov, Uncomplicated opioid dependence F11.20 and Bradycardia R00.1 [facility] [id number] [place] [address] 77643- 4245 Nov, [facility] [address] [place] [address] Nov, Uncomplicated opioid dependence F11.20 and Marijuana abuse F12.10 [facility] [address] [place] [address] October, Uncomplicated opioid dependence F11.20 and Marijuana abuse F12.10 [facility] [id number] [place] [address] 78295- 0473 October, Uncomplicated opioid dependence F11.20 [facility] [id number] [place] [address] 27778- 4116 October, [facility] [address] [place] [address] October, Uncomplicated opioid dependence F11.20 [facility] [id number] [place] [address] 29420- 6962 October, Uncomplicated opioid dependence F11.20 [facility] [address] 44947- 9037 October, Opioid abuse F11.10 and Injection of illicit drug within last 12 months F19.90 [facility] [address] [place] [address] October, Uncomplicated opioid dependence F11.20 and Marijuana abuse F12.10 [facility] [id number] [place] [address] 08895- 0308 October, [facility] [address] [place] [address] October, Uncomplicated opioid dependence F11.20 and Marijuana abuse F12.10 [facility] [id number] [place] [address] 23514- 9301 Sep, Chronic obstructive pulmonary disease, unspecified COPD type J44.9 ; Cigarette nicotine dependence with other nicotine-induced disorder F17.218 and PAC (premature atrial contraction) I49.1 [facility] [address] [place] [address] Sep, Uncomplicated opioid dependence F11.20 and Marijuana abuse F12.10 [facility] [id number] [place] [address] 96524- 0807 Sep, [facility] [id number] [place] [address] 52653- 7064 Sep, [facility] [address] [address] Sep, [facility] [id number] [place] [address] 43731- 7044 Jun, [facility] [address] [place] [address] 33956- 4086 Jun, [facility] [id number] [place] [address] 40480- 6624 May, Chronic obstructive pulmonary disease, unspecified COPD type J44.9 [facility] [id number] [place] [address] 02675- 7484 May, Overflow incontinence of urine N39.490 [facility] [id number] [place] [address] 87703- 5703 Apr, Bronchitis J40 ; Chronic obstructive pulmonary disease, unspecified COPD type J44.9 and Cigarette nicotine dependence with other nicotine-induced disorder F17.218 [facility] [id number] [place] [address] 02585- 6446 Apr, [facility] [id number] [place] [address] 25702- 1335 Jan, Bronchitis J40 [facility] [address] [place] [address] 15398- 1529 Jan, Bronchitis J40 [facility] [address] [place] [address] 60730- 0201 Dec, Bronchitis J40 ; Low back pain M54.5 and Other chronic pain G89.29 [facility] [address] [address] Sep, [facility] [id number] [place] [address] 66394- 6458 13 Sep, 2014 [facility] [address], [place] [address] Nov, [facility] [address] [place] [address] 11 Nov, 2013 IMMUNIZATIONS No Known Immunizations SOCIAL HISTORY Never Assessed REASON FOR VISIT SUBAB-FU PLAN OF CARE Activity Details Follow Up 2 Weeks Reason:SUBAB FU VITAL SIGNS MEDICATIONS Unknown Medications RESULTS No Results PROCEDURES Procedure Date Ordered Result Body Site Alcohol and/or drug services Jan 20, 2018 INSTRUCTIONS MEDICATIONS ADMINISTERED No Known Medications [...]
--- OUTSIDE RECORDS SUMMARY | 2018-04-14 14:50 | XMS REPORT ---
Author Author CONOR GO Organization [facility] Address [address] [place] [address] Care Team Providers Care Bellman Captain Name Role Phone CONOR GO Unavailable PROBLEMS Type Condition ICD9-CM Code GVD70-XB Code Onset Dates Condition Status SNOMED Code Problem Low back pain M54.5 Active 482317977 Problem Cigarette nicotine dependence with other nicotine-induced disorder F17.218 Active 54193717 Problem Chronic obstructive pulmonary disease, unspecified COPD type J44.9 Active 01102548 Problem PVCs (premature ventricular contractions) I49.3 Active 15769613 Problem Other cardiac arrhythmia I49.8 Active 69869602 Problem Bradycardia R00.1 Active 53515887 Problem PAC (premature atrial contraction) I49.1 Active 351859753 Problem Uncomplicated opioid dependence F11.20 Active 65350328 Problem Marijuana abuse F12.10 Active 94796513 ALLERGIES No Information ENCOUNTERS Encounter Location Date Diagnosis [facility] [address] [address] Mar, [facility] [address] [place] [address] Feb, [facility] [id number] [place] [address] 23781- 9534 Feb, Uncomplicated opioid dependence F11.20 [facility] [address] [place] [address] Feb, [facility] [id number] [place] [address] 25188- 3941 Jan, Uncomplicated opioid dependence F11.20 [facility] [address] [place] [address] Jan, Uncomplicated opioid dependence F11.20 [facility] [id number] [place] [address] 42689- 7497 Jan, Uncomplicated opioid dependence F11.20 [facility] [id number] [place] [address] 50280- 8494 Jan, Uncomplicated opioid dependence F11.20 [facility] [address] [place] [address] Jan, Uncomplicated opioid dependence F11.20 [facility] [id number] [place] [address] 73841- 3298 Jan, Uncomplicated opioid dependence F11.20 [facility] [address] [place] [address] Jan, Uncomplicated opioid dependence F11.20 [facility] [address] [address] Jan, Abnormal EKG R94.31 ; PAC (premature atrial contraction) I49.1 ; PVCs (premature ventricular contractions) I49.3 ; Dyspnea on exertion R06.09 ; Chronic obstructive pulmonary disease, unspecified COPD type J44.9 ; History of drug use Z87.898 and Tobacco use Z72.0 [facility] [id number] [place] [address] 26755- 3802 Jan, Uncomplicated opioid dependence F11.20 [facility] [address] [place] [address] Jan, Uncomplicated opioid dependence F11.20 [facility] [id number] [place] [address] 74321- 7152 Dec, Chronic obstructive pulmonary disease, unspecified COPD type J44.9 and Uncomplicated opioid dependence F11.20 [facility] [id number] [place] [address] 47247- 7529 Dec, Uncomplicated opioid dependence F11.20 [facility] [address] [place] [address] Dec, Uncomplicated opioid dependence F11.20 [facility] [id number] [place] [address] 29437- 2701 Dec, Uncomplicated opioid dependence F11.20 [facility] [address] [place] [address] Dec, Uncomplicated opioid dependence F11.20 [facility] [id number] [place] [address] 96542- 1432 Dec, [facility] [id number] [place] [address] 14922- 8084 Dec, Uncomplicated opioid dependence F11.20 [facility] [id number] [place] [address] 32990- 9171 Dec, [facility] [address] [place] [address] Dec, Uncomplicated opioid dependence F11.20 [facility] [id number] [place] [address]389- 1966 Dec, [facility] [id number] [place] [address] 14248- 5868 Dec, Uncomplicated opioid dependence F11.20 [facility] [id number] [place] [address] 19727- 3866 Dec, Uncomplicated opioid dependence F11.20 [facility] [id number] [place] [address] 65412- 7923 Dec, [facility] [address] [place] [address] Nov, Uncomplicated opioid dependence F11.20 [facility] [id number] [place] [address] 50659- 3800 Nov, Other cardiac arrhythmia I49.8 [facility] [address] [place] [address] Nov, Uncomplicated opioid dependence F11.20 and Marijuana abuse F12.10 [facility] [id number] [place] [address] 80886- 9373 Nov, Uncomplicated opioid dependence F11.20 and Bradycardia R00.1 [facility] [id number] [place] [address] 66172- 5750 Nov, [facility] [address] [place] [address] Nov, Uncomplicated opioid dependence F11.20 and Marijuana abuse F12.10 [facility] [address] [place] [address] October, Uncomplicated opioid dependence F11.20 and Marijuana abuse F12.10 [facility] [id number] [place] [address] 37662- 2838 October, Uncomplicated opioid dependence F11.20 [facility] [id number] [place] [address] 90410- 5573 October, [facility] [address] [place] [address] October, Uncomplicated opioid dependence F11.20 [facility] [id number] [place] [address] 33645- 1704 October, Uncomplicated opioid dependence F11.20 [facility] [id number] [place] [address] 14378- 2259 October, Opioid abuse F11.10 and Injection of illicit drug within last 12 months F19.90 [facility] [address] [place] [address] October, Uncomplicated opioid dependence F11.20 and Marijuana abuse F12.10 [facility] [id number] [place] [address] 28697- 3234 October, [facility] [address] [place] [address] October, Uncomplicated opioid dependence F11.20 and Marijuana abuse F12.10 [facility] [id number] [place] [address] 26783- 4854 Sep, Chronic obstructive pulmonary disease, unspecified COPD type J44.9 ; Cigarette nicotine dependence with other nicotine-induced disorder F17.218 and PAC (premature atrial contraction) I49.1 [facility] [address] [place] [address] Sep, Uncomplicated opioid dependence F11.20 and Marijuana abuse F12.10 [facility] [id number] [place] [address] 62071- 6461 Sep, [facility] [id number] [place] [address] 38175- 7404 Sep, [place] [address] [place] [address] Sep, [facility] [id number] [place] [address] 60705- 6829 Jun, [facility] [address] [place] [address] Jun, [facility] [id number] [place] [address] 53234- 8735 May, Chronic obstructive pulmonary disease, unspecified COPD type J44.9 [facility] [id number] [place] [address] 19657- 0261 May, Overflow incontinence of urine N39.490 [facility] [address] [place] [address] 10331- 7692 Apr, Bronchitis J40 ; Chronic obstructive pulmonary disease, unspecified COPD type J44.9 and Cigarette nicotine dependence with other nicotine-induced disorder F17.218 [facility] [address] [address] Apr, [facility] [id number] [place] [address] 89906- 8988 Jan, Bronchitis J40 [facility] [address] [place] [address] 97632- 7070 Jan, Bronchitis J40 [facility] [address] [place] [address] 01513- 6841 Dec, Bronchitis J40 ; Low back pain M54.5 and Other chronic pain G89.29 [facility] [address] [place] [address] 14 Sep, 2014 [facility] [id number] [place] [address] 44099- 9547 13 Sep, 2014 [facility] [address] [place] [address] Nov, [facility] [id number] [place] [address] Nov, IMMUNIZATIONS No Known Immunizations SOCIAL HISTORY Never Assessed REASON FOR VISIT suboxone rx (01/21-02/03) PLAN OF CARE VITAL SIGNS MEDICATIONS Medication [...]
--- OUTSIDE RECORDS SUMMARY | 2018-04-14 14:50 | XMS REPORT ---
Author Author CONOR GO Organization [facility] Address [address] [place] [address] Care Team Providers Care Calender Feeder Name Role Phone CONOR GO Unavailable PROBLEMS Type Condition ICD9-CM Code OJW48-PK Code Onset Dates Condition Status SNOMED Code Problem Low back pain M54.5 Active 949686477 Problem Cigarette nicotine dependence with other nicotine-induced disorder F17.218 Active 51448286 Problem Chronic obstructive pulmonary disease, unspecified COPD type J44.9 Active 42944707 Problem PVCs (premature ventricular contractions) I49.3 Active 17236902 Problem Other cardiac arrhythmia I49.8 Active 29624201 Problem Bradycardia R00.1 Active 21013071 Problem PAC (premature atrial contraction) I49.1 Active 549139793 Problem Uncomplicated opioid dependence F11.20 Active 37921725 Problem Marijuana abuse F12.10 Active 37941580 ALLERGIES No Information ENCOUNTERS Encounter Location Date Diagnosis [facility] [address] [address] Mar, [facility] [address] [place] [address] Feb, [facility] [id number] [place] [address] 30672- 8444 Feb, Uncomplicated opioid dependence F11.20 [facility] [address] [place] [address] Feb, [facility] [id number] [place] [address] 23053- 5482 Jan, Uncomplicated opioid dependence F11.20 [facility] [address] [place] [address] Jan, Uncomplicated opioid dependence F11.20 [facility] [id number] [place] [address] 98955- 3541 Jan, Uncomplicated opioid dependence F11.20 [facility] [id number] [place] [address] 11882- 2208 Jan, Uncomplicated opioid dependence F11.20 [facility] [address] [place] [address] Jan, Uncomplicated opioid dependence F11.20 [facility] [id number] [place] [address] 94533- 2357 Jan, Uncomplicated opioid dependence F11.20 [facility] [address] [place] [address] Jan, Uncomplicated opioid dependence F11.20 [facility] [address] [address] Jan, Abnormal EKG R94.31 ; PAC (premature atrial contraction) I49.1 ; PVCs (premature ventricular contractions) I49.3 ; Dyspnea on exertion R06.09 ; Chronic obstructive pulmonary disease, unspecified COPD type J44.9 ; History of drug use Z87.898 and Tobacco use Z72.0 [facility] [id number] [place] [address] 90461- 9932 Jan, Uncomplicated opioid dependence F11.20 [facility] [address] [place] [address] Jan, Uncomplicated opioid dependence F11.20 [facility] [id number] [place] [address] 34609- 5797 Dec, Chronic obstructive pulmonary disease, unspecified COPD type J44.9 and Uncomplicated opioid dependence F11.20 [facility] [id number] [place] [address] 02176- 8158 Dec, Uncomplicated opioid dependence F11.20 [facility] [address] [place] [address] Dec, Uncomplicated opioid dependence F11.20 [facility] [id number] [place] [address] 93328- 6442 Dec, Uncomplicated opioid dependence F11.20 [facility] [address] [place] [address] Dec, Uncomplicated opioid dependence F11.20 [facility] [id number] [place] [address] 22300- 5992 Dec, [facility] [id number] [place] [address] 36212- 8309 Dec, Uncomplicated opioid dependence F11.20 [facility] [id number] [place] [address] 27999- 8579 Dec, [facility] [address] [place] [address] Dec, Uncomplicated opioid dependence F11.20 [facility] [id number] [place] [address] 75150- 0413 Dec, [facility] [id number] [place] [address] 02776- 7932 Dec, Uncomplicated opioid dependence F11.20 [facility] [id number] [place] [address] 00955- 5875 Dec, Uncomplicated opioid dependence F11.20 [facility] [id number] [place] [address] 34870- 3036 Dec, [facility] [address] [place] [address] Nov, Uncomplicated opioid dependence F11.20 [facility] [id number] [place] [address] 47622- 2117 Nov, Other cardiac arrhythmia I49.8 [facility] [address] [place] [address] Nov, Uncomplicated opioid dependence F11.20 and Marijuana abuse F12.10 [facility] [id number] [place] [address] 14173- 1405 Nov, Uncomplicated opioid dependence F11.20 and Bradycardia R00.1 [facility] [id number] [place] [address] 92220- 4333 Nov, [facility] [address] [place] [address] Nov, Uncomplicated opioid dependence F11.20 and Marijuana abuse F12.10 [facility] [address] [place] [address] October, Uncomplicated opioid dependence F11.20 and Marijuana abuse F12.10 [facility] [id number] [place] [address] 94036- 4063 October, Uncomplicated opioid dependence F11.20 [facility] [id number] [place] [address] 81509- 8012 October, [facility] [address] [place] [address] October, Uncomplicated opioid dependence F11.20 [facility] [id number] [place] [address] 72393- 5337 October, Uncomplicated opioid dependence F11.20 [facility] [id number] [place] [address] 33375- 0565 October, Opioid abuse F11.10 and Injection of illicit drug within last 12 months F19.90 [facility] [address] [place] [address] October, Uncomplicated opioid dependence F11.20 and Marijuana abuse F12.10 [facility] [id number] [place] [address] 24975- 6645 October, [facility] [address] [place] [address] October, Uncomplicated opioid dependence F11.20 and Marijuana abuse F12.10 [facility] [id number] [place] [address] 63568- 7085 Sep, Chronic obstructive pulmonary disease, unspecified COPD type J44.9 ; Cigarette nicotine dependence with other nicotine-induced disorder F17.218 and PAC (premature atrial contraction) I49.1 [facility] [address] [place] [address] Sep, Uncomplicated opioid dependence F11.20 and Marijuana abuse F12.10 [facility] [id number] [place] [address] 18916- 9961 Sep, [facility] [id number] [place] [address] 62565- 8665 Sep, [place] [address] [address] 5298 Sep, [facility] [address] [place] [address] 08462- 5576 Jun, [facility] [address] [address]- 7869 Jun, [facility] [id number] [place] [address] 42311- 7507 May, Chronic obstructive pulmonary disease, unspecified COPD type J44.9 [facility] [address] [place] [address] 47416- 3278 May, Overflow incontinence of urine N39.490 [facility] [address] [place] [address] 12006- 8982 Apr, Bronchitis J40 ; Chronic obstructive pulmonary disease, unspecified COPD type J44.9 and Cigarette nicotine dependence with other nicotine-induced disorder F17.218 [facility] [address] [address]- 07[address] Apr, [facility] [address] [place] [address] 32055- 8633 Jan, Bronchitis J40 [facility] [address] [place] [address] 56177- 5226 Jan, Bronchitis J40 [facility] [address] [place] [address] 59555- 6449 Dec, Bronchitis J40 ; Low back pain M54.5 and Other chronic pain G89.29 [facility] [address] [address]- 4[address] 14 Sep, 2014 [facility] [address] [place] [address] 74812- 8417 13 Sep, 2014 [facility] [address] [address]- 6157 Nov, [facility] [id number] [address]- 7026 Nov, IMMUNIZATIONS No Known Immunizations SOCIAL HISTORY Never Assessed REASON FOR VISIT suboxone rx (01/13-01/20) PLAN OF CARE VITAL SIGNS MEDICATIONS Medication Instructions Dosage Frequency Start Date End Date Duration Status Suboxone 8-2 MG Sublingual Once a day 1.5 film under the tongue and allow to dissolve 24h Dec, 8 days Active RESULTS No Results PROCEDURES No [...]
--- OUTSIDE RECORDS SUMMARY | 2018-04-14 14:50 | XMS REPORT ---
Author Author ROMMEL WEBER [facility] Address [address] [place] [address] Care Team Providers Care Finish Remover Name Role Phone ROMMEL WEBER Unavailable PROBLEMS Type Condition ICD9-CM Code BAS05-XW Code Onset Dates Condition Status SNOMED Code Problem Low back pain M54.5 Active 370172531 Problem Cigarette nicotine dependence with other nicotine-induced disorder F17.218 Active 29803935 Problem Chronic obstructive pulmonary disease, unspecified COPD type J44.9 Active 03163625 Problem PVCs (premature ventricular contractions) I49.3 Active 07737521 Problem Other cardiac arrhythmia I49.8 Active 43993066 Problem Bradycardia R00.1 Active 40466984 Problem PAC (premature atrial contraction) I49.1 Active 557893365 Problem Uncomplicated opioid dependence F11.20 Active 11313587 Problem Marijuana abuse F12.10 Active 41483668 ALLERGIES No Known Allergies ENCOUNTERS Encounter Location Date Diagnosis [facility], [place] [address] [address] Mar, [facility] [address] [place] [address] Feb, [facility], [place] [address] [address] Feb, Uncomplicated opioid dependence F11.20 [facility] [address] [place] [address] Feb, [facility], [place] [address] [address] Jan, Uncomplicated opioid dependence F11.20 [facility] [address] [place] [address] Jan, Uncomplicated opioid dependence F11.20 [facility], [place] [address] [address] Jan, Uncomplicated opioid dependence F11.20 [facility], [place] [id number] [place] [address] 7210 Jan, Uncomplicated opioid dependence F11.20 [facility] [address] [place] [address] Jan, Uncomplicated opioid dependence F11.20 [facility], [place] [id number] [place] [address] Jan, Uncomplicated opioid dependence F11.20 [facility] [address] [place] [address] Jan, Uncomplicated opioid dependence F11.20 [facility], [place] [address] [address] Jan, Abnormal EKG R94.31 ; PAC (premature atrial contraction) I49.1 ; PVCs (premature ventricular contractions) I49.3 ; Dyspnea on exertion R06.09 ; Chronic obstructive pulmonary disease, unspecified COPD type J44.9 ; History of drug use Z87.898 and Tobacco use Z72.0 [facility], [place] [id number] [place] [address] Jan, Uncomplicated opioid dependence F11.20 [facility] [address] [place] [address] Jan, Uncomplicated opioid dependence F11.20 [facility], [place] [id number] [place] [address]995[address]876 Dec, Chronic obstructive pulmonary disease, unspecified COPD type J44.9 and Uncomplicated opioid dependence F11.20 [facility], [place] [id number] [place] [address] 05472[address] 8318 Dec, Uncomplicated opioid dependence F11.20 [facility] [address] [place] [address] Dec, Uncomplicated opioid dependence F11.20 [facility], [place] [id number] [place] [address] 45978- 8483 Dec, Uncomplicated opioid dependence F11.20 [facility] [address] [place] [address] Dec, Uncomplicated opioid dependence F11.20 [facility], [place] [id number] [place] [address]60[address] Dec, [facility], [place] [id number] [place] [address] 23266- 9462 Dec, Uncomplicated opioid dependence F11.20 [facility], [place] [id number] [place] [address] 62095- 80[address] Dec, [facility] [address] [place] [address] Dec, Uncomplicated opioid dependence F11.20 [facility], [place] [id number] [place] [address] 28538- 7502 Dec, [facility], [place] [id number] [place] [address] 28326- 5809 Dec, Uncomplicated opioid dependence F11.20 [facility], [place] [id number] [place] [address] 95074- 1119 Dec, Uncomplicated opioid dependence F11.20 [facility], [place] [id number] [place] [address] 52727- 4433 Dec, [facility] [address] [place] [address] Nov, Uncomplicated opioid dependence F11.20 [facility], [place] [id number] [place] [address] 18070- 0771 Nov, Other cardiac arrhythmia I49.8 [facility] [address] [place] [address] Nov, Uncomplicated opioid dependence F11.20 and Marijuana abuse F12.10 [facility], [place] [id number] [place] [address] 9[address]40[address] Nov, Uncomplicated opioid dependence F11.20 and Bradycardia R00.1 [facility], [place] [id number] [place] [address] 06680[address] Nov, [facility] [address] [place] [address] Nov, Uncomplicated opioid dependence F11.20 and Marijuana abuse F12.10 [facility] [address] [place] [address] October, Uncomplicated opioid dependence F11.20 and Marijuana abuse F12.10 [facility], [place] [address] [address] October, Uncomplicated opioid dependence F11.20 [facility], [place] [id number] [place] [address] 83138[address] 6[address] October, [facility] [address] [place] [address] October, Uncomplicated opioid dependence F11.20 [facility], [place] [address] [address] October, Uncomplicated opioid dependence F11.20 [facility], [place] [address] [address] October, Opioid abuse F11.10 and Injection of illicit drug within last 12 months F19.90 [facility] [address] [place] [address] October, Uncomplicated opioid dependence F11.20 and Marijuana abuse F12.10 [facility], [place] [address] [address] October, [facility] [address] [place] [address] October, Uncomplicated opioid dependence F11.20 and Marijuana abuse F12.10 [facility], [place] [id number] [place] [address] 8[address]65[address] Sep, Chronic obstructive pulmonary disease, unspecified COPD type J44.9 ; Cigarette nicotine dependence with other nicotine-induced disorder F17.218 and PAC (premature atrial contraction) I49.1 [facility] [address] [place] [address] Sep, Uncomplicated opioid dependence F11.20 and Marijuana abuse F12.10 [facility], [place] [id number] [place] [address]37[address] Sep, [facility], [place] [address] [address] Sep, [facility], [place] [address] [address] Sep, [facility], [place] [id number] [place] [address] 8[address] Jun, [facility], [place] [id number] [place] [address] Jun, [facility], [place] [address] [address] May, Chronic obstructive pulmonary disease, unspecified COPD type J44.9 [facility], [place] [id number] [place] [address]881[address] 4[address] May, Overflow incontinence of urine N39.490 [facility], [place] [id number] [place] [address] 58147[address] Apr, Bronchitis J40 ; Chronic obstructive pulmonary disease, unspecified COPD type J44.9 and Cigarette nicotine dependence with other nicotine-induced disorder F17.218 [facility], [place] [id number] [place] [address] 24707- 6[address] Apr, [facility], [place] [id number] [place] [address] 8[address]51- 8788 Jan, Bronchitis J40 [facility], [place] [id number] [place] [address]237- 287[address] Jan, Bronchitis J40 [facility], [place] [id number] [place] [address] 55551- 27[address] Dec, Bronchitis J40 ; Low back pain M54.5 and Other chronic pain G89.29 [facility], [place] [id number] [place] [address] 7[address]22- 3[address] 14 Sep, 2014 [facility], [place] [id number] [place] [address] 9[address]34- 2118 13 Sep, 2014 [facility], [place] [id number] [place] [address] 9[address]67- 3922 Nov, [facility], [place] [id number] [address] 11 Nov, 2013 IMMUNIZATIONS No Known Immunizations SOCIAL HISTORY Never Assessed REASON FOR VISIT abnormal EKGs x 2 PLAN OF CARE Activity Details Follow Up 2 Months Reason: Pending Test 24 Holter Pending Test Lexiscan Stress Nuclear Test Pending Test Echo 2D VITAL SIGNS Height 68 in 2018-01-11 Weight 120 lbs 2018-01-11 Heart Rate 76 bpm 2018-01-11 Oximetry 92 % 2018-01-11 BMI 18.24 kg/m2 2018-01-11 Blood pressure systolic 118 mmHg 2018-01-11 Blood pressure diastolic 60 mmHg 2018-01-11 MEDICATIONS Medication Instructions Dosage Frequency Start Date End Date Duration Status Suboxone 8-2 MG Sublingual Once a day 1.5 film under the tongue and allow to dissolve 24h Dec, 6 days Active ProAir HFA 108 (90 Base) MCG/ACT Inhalation every 4 hrs. Please voucher 2 puffs as needed Jun, Active RESULTS No Results PROCEDURES Procedure Date Ordered Result Body Site ASSAY THYROID STIM HORMONE Jan 11, 2018 COMPLETE CBC W/AUTO DIFF WBC Jan 11, 2018 LIPID PANEL Jan 11, 2018 COMPREHEN METABOLIC PANEL Jan 11, 2018 INSTRUCTIONS MEDICATIONS ADMINISTERED No Known Medications [...]
--- OUTSIDE RECORDS SUMMARY | 2018-04-14 14:50 | XMS REPORT ---
Author Author CONOR GO Organization [facility] Address [address] [place] [address] Care Team Providers Care Tire Mounter Name Role Phone CONOR GO Unavailable PROBLEMS Type Condition ICD9-CM Code LRV54-CW Code Onset Dates Condition Status SNOMED Code Problem Low back pain M54.5 Active 243042566 Problem Cigarette nicotine dependence with other nicotine-induced disorder F17.218 Active 53490988 Problem Chronic obstructive pulmonary disease, unspecified COPD type J44.9 Active 12446518 Problem PVCs (premature ventricular contractions) I49.3 Active 54153201 Problem Other cardiac arrhythmia I49.8 Active 45491706 Problem Bradycardia R00.1 Active 63487158 Problem PAC (premature atrial contraction) I49.1 Active 065834679 Problem Uncomplicated opioid dependence F11.20 Active 39518914 Problem Marijuana abuse F12.10 Active 84287088 ALLERGIES No Information ENCOUNTERS Encounter Location Date Diagnosis [facility] [address] [address] Mar, [facility] [address] [place] [address] Feb, [facility] [id number] [place] [address]22[address] Feb, Uncomplicated opioid dependence F11.20 [facility] [address] [place] [address] Feb, [facility] [id number] [place] [address] 25257- 46[address] Jan, Uncomplicated opioid dependence F11.20 [facility] [address] [place] [address] Jan, [facility] [address] [address] Jan, Uncomplicated opioid dependence F11.20 [facility] [id number] [place] [address] 30297- 4304 Jan, Uncomplicated opioid dependence F11.20 [facility] [address] [place] [address] Jan, Uncomplicated opioid dependence F11.20 [facility] [id number] [place] [address] 08823- 3218 Jan, Uncomplicated opioid dependence F11.20 [facility] [address] [place] [address] Jan, Uncomplicated opioid dependence F11.20 [facility] [address] [address] Jan, Abnormal EKG R94.31 ; PAC (premature atrial contraction) I49.1 ; PVCs (premature ventricular contractions) I49.3 ; Dyspnea on exertion R06.09 ; Chronic obstructive pulmonary disease, unspecified COPD type J44.9 ; History of drug use Z87.898 and Tobacco use Z72.0 [facility] [address] [address] Jan, Uncomplicated opioid dependence F11.20 [facility] [address] [place] [address] Jan, Uncomplicated opioid dependence F11.20 [facility] [id number] [place] [address] 39619- 7299 Dec, Chronic obstructive pulmonary disease, unspecified COPD type J44.9 and Uncomplicated opioid dependence F11.20 [facility] [id number] [place] [address] 60287- 3504 Dec, Uncomplicated opioid dependence F11.20 [facility] [address] [place] [address] Dec, Uncomplicated opioid dependence F11.20 [facility] [id number] [place] [address] 33092- 3013 Dec, Uncomplicated opioid dependence F11.20 [facility] [address] [place] [address] Dec, Uncomplicated opioid dependence F11.20 [facility] [address] [address] Dec, [facility] [id number] [place] [address] 60709- 7268 Dec, Uncomplicated opioid dependence F11.20 [facility] [id number] [place] [address] 99887- 4546 Dec, [facility] [address] [place] [address] Dec, Uncomplicated opioid dependence F11.20 [facility] [id number] [place] [address] 71471- 4833 Dec, [facility] [id number] [place] [address] 02817- 2284 Dec, Uncomplicated opioid dependence F11.20 [facility] [id number] [place] [address] 34869- 5551 Dec, Uncomplicated opioid dependence F11.20 [facility] [id number] [place] [address] 80441[address]89 Dec, [facility] [address] [place] [address] Nov, Uncomplicated opioid dependence F11.20 [facility] [id number] [place] [address] 40735- 8737 Nov, Other cardiac arrhythmia I49.8 [facility] [address] [place] [address] Nov, Uncomplicated opioid dependence F11.20 and Marijuana abuse F12.10 [facility] [address] [place] [address] 40633- 0471 Nov, Uncomplicated opioid dependence F11.20 and Bradycardia R00.1 [facility] [id number] [place] [address] 99334- [address]75 Nov, [facility] [address] [place] [address] Nov, Uncomplicated opioid dependence F11.20 and Marijuana abuse F12.10 [facility] [address] [place] [address] October, Uncomplicated opioid dependence F11.20 and Marijuana abuse F12.10 [facility] [id number] [place] [address] 53396- 1773 October, Uncomplicated opioid dependence F11.20 [facility] [id number] [place] [address] 82223- 1807 October, [facility] [address] [place] [address] October, Uncomplicated opioid dependence F11.20 [facility] [id number] [place] [address] 79022- 2785 October, Uncomplicated opioid dependence F11.20 [facility] [id number] [place] [address] 68376- 8590 October, Opioid abuse F11.10 and Injection of illicit drug within last 12 months F19.90 [facility] [address] [place] [address] October, Uncomplicated opioid dependence F11.20 and Marijuana abuse F12.10 [facility] [id number] [place] [address] 95196- 2722 October, [facility] [address] [place] [address] October, Uncomplicated opioid dependence F11.20 and Marijuana abuse F12.10 [facility] [id number] [place] [address] 13266- 7441 Sep, Chronic obstructive pulmonary disease, unspecified COPD type J44.9 ; Cigarette nicotine dependence with other nicotine-induced disorder F17.218 and PAC (premature atrial contraction) I49.1 [facility] [address] [place] [address] Sep, Uncomplicated opioid dependence F11.20 and Marijuana abuse F12.10 [facility] [id number] [place] [address] 27360- 2810 Sep, [facility] [id number] [place] [address] 12639- 5217 Sep, [facility] [address] [id number] [address] Sep, [facility] [address] [place] [address] 32786- 2733 Jun, [facility] [address] [place] [address] 60860- 7045 Jun, [facility] [id number] [place] [address] 61749- 1584 May, Chronic obstructive pulmonary disease, unspecified COPD type J44.9 [facility] [address] [place] [address] 97996- 6761 May, Overflow incontinence of urine N39.490 [facility] [id number] [place] [address] 80296- 7457 Apr, Bronchitis J40 ; Chronic obstructive pulmonary disease, unspecified COPD type J44.9 and Cigarette nicotine dependence with other nicotine-induced disorder F17.218 [facility] [address] [place] [address] 01651- 5499 Apr, [facility] [id number] [place] [address] 50137- 1952 Jan, Bronchitis J40 [facility] [address] [place] [address] 60935- 1156 Jan, Bronchitis J40 [facility] [id number] [place] [address] 45164- 5326 Dec, Bronchitis J40 ; Low back pain M54.5 and Other chronic pain G89.29 [facility] [address] [place] [address] 22114- 1500 Sep, [facility] [id number] [place] [address] 85334- 4995 13 Sep, 2014 [facility] [address] [place] [address] 30929- 9132 Nov, [facility] [id number] [place] [address] 16581679- 8078 Nov, IMMUNIZATIONS No Known Immunizations SOCIAL HISTORY Never Assessed REASON FOR VISIT suboxone rx (01/07-01/09) PLAN OF CARE VITAL SIGNS MEDICATIONS Medication Instructions Dosage Frequency Start Date End Date Duration Status Suboxone 8-2 MG Sublingual Once a day 1.5 film under the tongue and allow to dissolve 24h Dec, 6 days Active RESULTS No Results PROCEDURES No [...]
--- OUTSIDE RECORDS SUMMARY | 2018-04-14 14:50 | XMS REPORT ---
Author [facility] Address [address] [place] [address] Care Team Providers Care Central Sterile Supply Technician Name Role Phone SANTOSH HUNTER Unavailable PROBLEMS Type Condition ICD9-CM Code SHW54-YU Code Onset Dates Condition Status SNOMED Code Problem Low back pain M54.5 Active 145322383 Problem Cigarette nicotine dependence with other nicotine-induced disorder F17.218 Active 03629813 Problem Chronic obstructive pulmonary disease, unspecified COPD type J44.9 Active 67149991 Problem PVCs (premature ventricular contractions) I49.3 Active 93479509 Problem Other cardiac arrhythmia I49.8 Active 78255699 Problem Bradycardia R00.1 Active 50124082 Problem PAC (premature atrial contraction) I49.1 Active 705476897 Problem Uncomplicated opioid dependence F11.20 Active 03658486 Problem Marijuana abuse F12.10 Active 22139761 ALLERGIES No Information ENCOUNTERS Encounter Location Date Diagnosis [facility] [address] [address] Mar, [facility] [address] [place] [address] Feb, [facility] [id number] [place] [address] 26939- 4012 Feb, Uncomplicated opioid dependence F11.20 [facility] [address] [place] [address] Feb, [facility] [id number] [place] [address] 66202- 2785 Jan, Uncomplicated opioid dependence F11.20 [facility] [address] [place] [address] Jan, Uncomplicated opioid dependence F11.20 [facility] [id number] [place] [address] 87414- 6873 Jan, Uncomplicated opioid dependence F11.20 [facility] [id number] [place] [address] 29392- 9795 Jan, Uncomplicated opioid dependence F11.20 [facility] [address] [place] [address] Jan, Uncomplicated opioid dependence F11.20 [facility] [id number] [place] [address] 18377- 5157 Jan, Uncomplicated opioid dependence F11.20 [facility] [address] [place] [address] Jan, Uncomplicated opioid dependence F11.20 [facility] [id number] [place] [address] 80378- 9345 Jan, Abnormal EKG R94.31 ; PAC (premature atrial contraction) I49.1 ; PVCs (premature ventricular contractions) I49.3 ; Dyspnea on exertion R06.09 ; Chronic obstructive pulmonary disease, unspecified COPD type J44.9 ; History of drug use Z87.898 and Tobacco use Z72.0 [facility] [id number] [place] [address] 57052- 9344 Jan, Uncomplicated opioid dependence F11.20 [facility] [address] [place] [address] Jan, Uncomplicated opioid dependence F11.20 [facility] [id number] [place] [address] 44827- 0457 Dec, Chronic obstructive pulmonary disease, unspecified COPD type J44.9 and Uncomplicated opioid dependence F11.20 [facility] [id number] [place] [address] 67697- 1239 Dec, Uncomplicated opioid dependence F11.20 [facility] [address] [place] [address] Dec, Uncomplicated opioid dependence F11.20 [facility] [id number] [place] [address] 51501- 4629 Dec, Uncomplicated opioid dependence F11.20 [facility] [address] [place] [address] Dec, Uncomplicated opioid dependence F11.20 [facility] [id number] [place] [address] 78903- 2269 Dec, [facility] [address] 14397- 8335 Dec, Uncomplicated opioid dependence F11.20 [facility] [id number] [place] [address] 44591- 2368 Dec, [facility] [address] [place] [address] Dec, Uncomplicated opioid dependence F11.20 [facility] [id number] [place] [address] 73517- 0169 Dec, [facility] [address] 55699- 4113 Dec, Uncomplicated opioid dependence F11.20 [facility] [address] 97281- 9095 Dec, Uncomplicated opioid dependence F11.20 [facility] [id number] [place] [address] 57477- 3699 Dec, [facility] [address] [place] [address] Nov, Uncomplicated opioid dependence F11.20 [facility] [id number] [place] [address] 65641- 6339 Nov, Other cardiac arrhythmia I49.8 [facility] [address] [place] [address] Nov, Uncomplicated opioid dependence F11.20 and Marijuana abuse F12.10 [facility] [id number] [place] [address] 25709- 9281 Nov, Uncomplicated opioid dependence F11.20 and Bradycardia R00.1 [facility] [id number] [place] [address] 98427- 2810 Nov, [facility] [address] [place] [address] Nov, Uncomplicated opioid dependence F11.20 and Marijuana abuse F12.10 [facility] [address] [place] [address] October, Uncomplicated opioid dependence F11.20 and Marijuana abuse F12.10 [facility] [id number] [place] [address] 10982- 6978 October, Uncomplicated opioid dependence F11.20 [facility] [id number] [place] [address] 06177- 8926 October, [facility] [address] [place] [address] October, Uncomplicated opioid dependence F11.20 [facility] [id number] [place] [address] 57747- 1887 October, Uncomplicated opioid dependence F11.20 [facility] [address] [address] October, Opioid abuse F11.10 and Injection of illicit drug within last 12 months F19.90 [facility] [address] [place] [address] October, Uncomplicated opioid dependence F11.20 and Marijuana abuse F12.10 [facility] [id number] [place] [address] 78182- 1836 October, [facility] [address] [place] [address] October, Uncomplicated opioid dependence F11.20 and Marijuana abuse F12.10 [facility] [id number] [place] [address] 19058- 9196 Sep, Chronic obstructive pulmonary disease, unspecified COPD type J44.9 ; Cigarette nicotine dependence with other nicotine-induced disorder F17.218 and PAC (premature atrial contraction) I49.1 [facility] [address] [place] [address] Sep, Uncomplicated opioid dependence F11.20 and Marijuana abuse F12.10 [facility] [id number] [place] [address] 13460- 4318 Sep, [facility] [id number] [place] [address] 59769- 8769 Sep, [facility] [address] [address] Sep, [facility] [id number] [place] [address] 60542- 0673 Jun, [facility] [id number] [place] [address] 62881- 6868 Jun, [facility] [id number] [place] [address] 08612- 4881 May, Chronic obstructive pulmonary disease, unspecified COPD type J44.9 [facility] [id number] [place] [address] 35952- 9025 May, Overflow incontinence of urine N39.490 [facility] [id number] [place] [address] 08630- 0821 Apr, Bronchitis J40 ; Chronic obstructive pulmonary disease, unspecified COPD type J44.9 and Cigarette nicotine dependence with other nicotine-induced disorder F17.218 [facility] [id number] [place] [address] 25918- 1272 Apr, [facility] [id number] [place] [address] 49042- 0697 Jan, Bronchitis J40 [facility] [id number] [place] [address] 66707- 5399 Jan, Bronchitis J40 [facility] [address] [place] [address] 84901- 7011 Dec, Bronchitis J40 ; Low back pain M54.5 and Other chronic pain G89.29 [facility] [address] [address] Sep, [facility] [id number] [place] [address] 02386- 5668 13 Sep, 2014 [facility] [address] [address] Nov, [facility] [address] [place] [address] Nov, IMMUNIZATIONS No Known Immunizations SOCIAL HISTORY Never Assessed REASON FOR VISIT SUBAB F/U PLAN OF CARE Activity Details Follow Up 1 Week Reason:SUBABFU VITAL SIGNS MEDICATIONS Unknown Medications RESULTS No Results PROCEDURES Procedure Date Ordered Result Body Site Alcohol and/or drug services Jan 06, 2018 INSTRUCTIONS MEDICATIONS ADMINISTERED No Known Medications [...]
--- OUTSIDE RECORDS SUMMARY | 2018-04-14 14:51 | XMS REPORT ---
Author [facility] Address [address] [place] [address] Care Team Providers Care Dramatic Art Teacher Name Role Phone SANTOSH HUNTER Unavailable PROBLEMS Type Condition ICD9-CM Code [id number] Code Onset Dates Condition Status SNOMED Code Problem Low back pain M54.5 Active 818944571 Problem Cigarette nicotine dependence with other nicotine-induced disorder F17.218 Active 77256461 Problem Chronic obstructive pulmonary disease, unspecified COPD type J44.9 Active 47383548 Problem PVCs (premature ventricular contractions) I49.3 Active 11172108 Problem Other cardiac arrhythmia I49.8 Active 86873081 Problem Bradycardia R00.1 Active 49104670 Problem PAC (premature atrial contraction) I49.1 Active 590380070 Problem Uncomplicated opioid dependence F11.20 Active 36216372 Problem Marijuana abuse F12.10 Active 26801388 ALLERGIES No Information ENCOUNTERS Encounter Location Date Diagnosis [facility] [address] [address] Mar, [facility] [address] [place] [address] Feb, [facility] [id number] [place] [address] 27680- 5383 Jan, Uncomplicated opioid dependence F11.20 [facility] [address] [place] [address] Jan, [facility] [id number] [place] [address] 75285- 3255 Jan, Uncomplicated opioid dependence F11.20 [facility] [address] 60[address]- 5652 Jan, Uncomplicated opioid dependence F11.20 [facility] [address] [place] [address] Jan, Uncomplicated opioid dependence F11.20 [facility] [id number] [place] [address] 81364- 9331 Jan, Uncomplicated opioid dependence F11.20 [facility] [address] [place] [address] Jan, Uncomplicated opioid dependence F11.20 [facility] [id number] [place] [address] 82160- 4318 Jan, Abnormal EKG R94.31 ; PAC (premature atrial contraction) I49.1 ; PVCs (premature ventricular contractions) I49.3 ; Dyspnea on exertion R06.09 ; Chronic obstructive pulmonary disease, unspecified COPD type J44.9 ; History of drug use Z87.898 and Tobacco use Z72.0 [facility] [id number] [place] [address] 17346- 4961 Jan, Uncomplicated opioid dependence F11.20 [facility] [address] [place] [address] Jan, Uncomplicated opioid dependence F11.20 [facility] [id number] [place] [address] 76777- 6631 Dec, Chronic obstructive pulmonary disease, unspecified COPD type J44.9 and Uncomplicated opioid dependence F11.20 [facility] [id number] [place] [address] 96104- 7822 Dec, Uncomplicated opioid dependence F11.20 [facility] [address] [place] [address] Dec, Uncomplicated opioid dependence F11.20 [facility] [id number] [place] [address] 90935- 7960 Dec, Uncomplicated opioid dependence F11.20 [facility] [address] [place] [address] Dec, Uncomplicated opioid dependence F11.20 [facility] [id number] [place] [address] 86664- 9759 Dec, [facility] [address] 19683- 4312 Dec, Uncomplicated opioid dependence F11.20 [facility] [id number] [place] [address] 75192- 0623 Dec, [facility] [address] [place] [address] Dec, Uncomplicated opioid dependence F11.20 [facility] [id number] [place] [address] 41870- 9398 Dec, [facility] [address] 39353- 7869 Dec, Uncomplicated opioid dependence F11.20 [facility] [id number] [place] [address] 13840- 3117 Dec, Uncomplicated opioid dependence F11.20 [facility] [id number] [place] [address] 78041- 3890 Dec, [facility] [address] [place] [address] Nov, Uncomplicated opioid dependence F11.20 [facility] [id number] [place] [address] 14872- 6432 Nov, Other cardiac arrhythmia I49.8 [facility] [address] [place] [address] Nov, Uncomplicated opioid dependence F11.20 and Marijuana abuse F12.10 [facility] [id number] [place] [address] 80324- 7555 Nov, Uncomplicated opioid dependence F11.20 and Bradycardia R00.1 [facility] [id number] [place] [address] 22895- 3666 Nov, [facility] [address] [place] [address] Nov, Uncomplicated opioid dependence F11.20 and Marijuana abuse F12.10 [facility] [address] [place] [address] October, Uncomplicated opioid dependence F11.20 and Marijuana abuse F12.10 [facility] [id number] [place] [address] 47954- 7471 October, Uncomplicated opioid dependence F11.20 [facility] [address], [place] [address] October, [facility] [address] [place] [address] October, Uncomplicated opioid dependence F11.20 [facility] [address] [place] [address] 47402- 6029 October, Uncomplicated opioid dependence F11.20 [facility] [id number] [place] [address] 12868- 3510 October, Opioid abuse F11.10 and Injection of illicit drug within last 12 months F19.90 [facility] [address] [place] [address] October, Uncomplicated opioid dependence F11.20 and Marijuana abuse F12.10 [facility] [id number] [place] [address] 85569- 9602 October, [facility] [address] [place] [address] October, Uncomplicated opioid dependence F11.20 and Marijuana abuse F12.10 [facility] [id number] [place] [address] 09105- 1250 Sep, Chronic obstructive pulmonary disease, unspecified COPD type J44.9 ; Cigarette nicotine dependence with other nicotine-induced disorder F17.218 and PAC (premature atrial contraction) I49.1 [facility] [address] [place] [address] Sep, Uncomplicated opioid dependence F11.20 and Marijuana abuse F12.10 [facility] [address] [place] [address] 89451- 0307 Sep, [facility] [id number] [place] [address] 06654- 0880 Sep, [facility] [id number] [place] [address] 31829- 5313 Sep, [facility] [address] [place] [address] 29070- 8870 Jun, [facility] [id number] [place] [address] 13976- 0176 Jun, [facility] [id number] [place] [address] 25661- 4473 May, Chronic obstructive pulmonary disease, unspecified COPD type J44.9 [facility] [id number] [place] [address] 03138- 4683 May, Overflow incontinence of urine N39.490 [facility] [id number] [place] [address] 24364- 1432 Apr, Bronchitis J40 ; Chronic obstructive pulmonary disease, unspecified COPD type J44.9 and Cigarette nicotine dependence with other nicotine-induced disorder F17.218 [facility] [id number] [place] [address] 90066- 6724 Apr, [facility] [id number] [place] [address] 11544- 6460 Jan, Bronchitis J40 [facility] [facility] [id number] [place] [address] 67075- 2070 Jan, Bronchitis J40 [facility] [id number] [place] [address] 23754- 2984 Dec, Bronchitis J40 ; Low back pain M54.5 and Other chronic pain G89.29 [facility] [id number] [place] [address] 40119- 3456 Sep, [facility] [id number] [place] [address] 57168- 1710 Sep, [facility] [id number] [place] [address] 24152- 4627 Nov, [facility] [id number] [place] [address] 35660- 4097 Nov, IMMUNIZATIONS No Known Immunizations SOCIAL HISTORY Never Assessed REASON FOR VISIT SUBAB-FU PLAN OF CARE Activity Details Follow Up 1 Week Reason:SUBABFU VITAL SIGNS MEDICATIONS Unknown Medications RESULTS No Results PROCEDURES Procedure Date Ordered Result Body Site Alcohol and/or drug services December 22, 2017 INSTRUCTIONS MEDICATIONS ADMINISTERED No Known Medications MEDICAL (GENERAL) HISTORY Type Description Date Medical History Unspecified backache Medical History tips of 3rd and 4th digit on right hand cut off Medical History PACs/PVCs/Bradycardia Medical History opioid use disorder Hospitalization History had tips of 3rd and 4th digit on right hand cut off, got caught in dog cable
--- OUTSIDE RECORDS SUMMARY | 2018-04-14 14:51 | XMS REPORT ---
Author Author ELSA SANTOSH [facility] Address [address] [place] [address] Care Team Providers Care Facilities Director Name Role Phone SANTOSH HUNTER Unavailable PROBLEMS Type Condition ICD9-CM Code FMR23-HR Code Onset Dates Condition Status SNOMED Code Problem Low back pain M54.5 Active 500578998 Problem Cigarette nicotine dependence with other nicotine-induced disorder F17.218 Active 39253301 Problem Chronic obstructive pulmonary disease, unspecified COPD type J44.9 Active 55754500 Problem PVCs (premature ventricular contractions) I49.3 Active 69630849 Problem Other cardiac arrhythmia I49.8 Active 34507065 Problem Bradycardia R00.1 Active 93769810 Problem PAC (premature atrial contraction) I49.1 Active 348527747 Problem Uncomplicated opioid dependence F11.20 Active 06258541 Problem Marijuana abuse F12.10 Active 26960817 ALLERGIES No Information ENCOUNTERS Encounter Location Date Diagnosis [facility] [address] [address] Mar, [facility] [address] [place] [address] Feb, [facility] [id number] [place] [address] 87501- 6952 Jan, Uncomplicated opioid dependence F11.20 [facility] [address] [place] [address] Jan, [facility] [id number] [place] [address] 62483- 2171 Jan, Uncomplicated opioid dependence F11.20 [facility] [address] [address] Jan, Uncomplicated opioid dependence F11.20 [facility] [address] [place] [address] Jan, Uncomplicated opioid dependence F11.20 [facility] [id number] [place] [address] 04073- 0284 Jan, Uncomplicated opioid dependence F11.20 [facility] [address] [place] [address] Jan, Uncomplicated opioid dependence F11.20 [facility] [id number] [place] [address] 13882- 4448 Jan, Abnormal EKG R94.31 ; PAC (premature atrial contraction) I49.1 ; PVCs (premature ventricular contractions) I49.3 ; Dyspnea on exertion R06.09 ; Chronic obstructive pulmonary disease, unspecified COPD type J44.9 ; History of drug use Z87.898 and Tobacco use Z72.0 [facility] [id number] [place] [address] 14932- 9669 Jan, Uncomplicated opioid dependence F11.20 [facility] [address] [place] [address] Jan, Uncomplicated opioid dependence F11.20 [facility] [id number] [place] [address] 75803- 3951 Dec, Chronic obstructive pulmonary disease, unspecified COPD type J44.9 and Uncomplicated opioid dependence F11.20 [facility] [id number] [place] [address] 57177- 1061 Dec, Uncomplicated opioid dependence F11.20 [facility] [address] [place] [address] Dec, Uncomplicated opioid dependence F11.20 [facility] [id number] [place] [address] 10803- 3806 Dec, Uncomplicated opioid dependence F11.20 [facility] [address] [place] [address] Dec, Uncomplicated opioid dependence F11.20 [facility] [id number] [place] [address] 82288- 6934 Dec, [facility] [address] [address] Dec, Uncomplicated opioid dependence F11.20 [facility] [id number] [place] [address] 64945- 2646 Dec, [facility] [address] [place] [address] Dec, Uncomplicated opioid dependence F11.20 [facility] [id number] [place] [address] 10115- 3267 Dec, [facility] [address] 468[address] Dec, Uncomplicated opioid dependence F11.20 [facility] [id number] [place] [address] 14537- 2171 Dec, Uncomplicated opioid dependence F11.20 [facility] [id number] [place] [address] 98369- 9508 Dec, [facility] [address] [place] [address] Nov, Uncomplicated opioid dependence F11.20 [facility] [id number] [place] [address] 31498- 7733 Nov, Other cardiac arrhythmia I49.8 [facility] [address] [place] [address] Nov, Uncomplicated opioid dependence F11.20 and Marijuana abuse F12.10 [facility] [id number] [place] [address] 12751- 2878 Nov, Uncomplicated opioid dependence F11.20 and Bradycardia R00.1 [facility] [id number] [place] [address] 76523- 0876 Nov, [facility] [address] [place] [address] Nov, Uncomplicated opioid dependence F11.20 and Marijuana abuse F12.10 [facility] [address] [place] [address] October, Uncomplicated opioid dependence F11.20 and Marijuana abuse F12.10 [facility] [id number] [place] [address] 22547- 8331 October, Uncomplicated opioid dependence F11.20 [facility] [address] [address] October, [facility] [address] [place] [address] October, Uncomplicated opioid dependence F11.20 [facility] [id number] [place] [address] 16984- 2718 October, Uncomplicated opioid dependence F11.20 [facility] [id number] [place] [address] 78521- 7587 October, Opioid abuse F11.10 and Injection of illicit drug within last [address] [facility] [address] [place] [address] October, Uncomplicated opioid dependence F11.20 and Marijuana abuse F12.10 [facility] [id number] [place] [address] 05768[address] October, [facility] [address] [place] [address] October, Uncomplicated opioid dependence F11.20 and Marijuana abuse F12.10 [facility] [id number] [place] [address] 04186- 8535 Sep, Chronic obstructive pulmonary disease, unspecified COPD type J44.9 ; Cigarette nicotine dependence with other nicotine-induced disorder F17.218 and PAC (premature atrial contraction) I49.1 [facility] [address] [place] [address] Sep, Uncomplicated opioid dependence F11.20 and Marijuana abuse F12.10 [facility] [id number] [place] [address] 15964- 6981 Sep, [facility] [id number] [place] [address] 62895- 0114 Sep, [facility] [id number] [place] [address] 00190- 5863 Sep, [facility] [id number] [place] [address] 32322- 8306 Jun, [facility] [id number] [place] [address] 51037- 8947 Jun, [place] [id number] [place] [address] 37837- 3639 May, Chronic obstructive pulmonary disease, unspecified COPD type J44.9 [facility] [id number] [place] [address] 48410- 3699 May, Overflow incontinence of urine N39.490 [facility] [id number] [place] [address] 94968- 3712 Apr, Bronchitis J40 ; Chronic obstructive pulmonary disease, unspecified COPD type J44.9 and Cigarette nicotine dependence with other nicotine-induced disorder F17.218 [facility] [id number] [place] [address] 24600- 8023 Apr, [place] [place] [id number] [place] [address] 32868- 7311 Jan, Bronchitis J40 [facility] [id number] [place] [address] 64257- 6592 Jan, Bronchitis J40 [place] [id number] [place] [address] 97577- 3436 Dec, Bronchitis J40 ; Low back pain M54.5 and Other chronic pain G89.29 [place] [id number] [place] [address] 72046- 7683 Sep, [place] [id number] [place] [address] 33422- 8377 Sep, [place] [id number] [place] [address] 00317- 2818 Nov, [place] [id number] [place] [address] 53707- 3853 Nov, IMMUNIZATIONS No Known Immunizations SOCIAL HISTORY Never Assessed REASON FOR VISIT SUBAB F/U PLAN OF CARE Activity Details Follow Up 2 Weeks Reason:SUBABFU VITAL SIGNS MEDICATIONS Unknown Medications RESULTS No Results PROCEDURES Procedure Date Ordered Result Body Site Alcohol and/or drug services December 29, 2017 INSTRUCTIONS MEDICATIONS ADMINISTERED No Known Medications [...]
--- OUTSIDE RECORDS SUMMARY | 2018-04-14 14:51 | XMS REPORT ---
Author Author CONOR GO Organization [facility] Address [address] [place] [address] Care Team Providers Care [employer] Engineer Name Role Phone CONOR GO Unavailable PROBLEMS Type Condition ICD9-CM Code GVF93-DV Code Onset Dates Condition Status SNOMED Code Problem Low back pain M54.5 Active 900801954 Problem Cigarette nicotine dependence with other nicotine-induced disorder F17.218 Active 14929399 Problem Chronic obstructive pulmonary disease, unspecified COPD type J44.9 Active 52957933 Problem PVCs (premature ventricular contractions) I49.3 Active 18053925 Problem Other cardiac arrhythmia I49.8 Active 34341972 Problem Bradycardia R00.1 Active 47033118 Problem PAC (premature atrial contraction) I49.1 Active 640581475 Problem Uncomplicated opioid dependence F11.20 Active 52809150 Problem Marijuana abuse F12.10 Active 27065735 ALLERGIES No Known Allergies ENCOUNTERS Encounter Location Date Diagnosis [facility] [address] [address] Mar, [facility] [address] [place] [address] Feb, [facility] [id number] [place] [address] 75931- 9689 Feb, Uncomplicated opioid dependence F11.20 [facility] [address] [place] [address] Feb, [facility] [id number] [place] [address] 33522- 4539 Jan, Uncomplicated opioid dependence F11.20 [facility] [address] [place] [address] Jan, [facility] [address] [address] Jan, Uncomplicated opioid dependence F11.20 [facility] [id number] [place] [address] 92832- 3915 Jan, Uncomplicated opioid dependence F11.20 [facility] [address] [place] [address] Jan, Uncomplicated opioid dependence F11.20 [facility] [id number] [place] [address] 16321- 5922 Jan, Uncomplicated opioid dependence F11.20 [facility] [address] [place] [address] Jan, Uncomplicated opioid dependence F11.20 [facility] [address] [address] Jan, Abnormal EKG R94.31 ; PAC (premature atrial contraction) I49.1 ; PVCs (premature ventricular contractions) I49.3 ; Dyspnea on exertion R06.09 ; Chronic obstructive pulmonary disease, unspecified COPD type J44.9 ; History of drug use Z87.898 and Tobacco use Z72.0 [facility] [id number] [place] [address] 00993- 4943 Jan, Uncomplicated opioid dependence F11.20 [facility] [address] [place] [address] Jan, Uncomplicated opioid dependence F11.20 [facility] [id number] [place] [address] 23764- 6413 Dec, Chronic obstructive pulmonary disease, unspecified COPD type J44.9 and Uncomplicated opioid dependence F11.20 [facility] [id number] [place] [address] 48671- 4488 Dec, Uncomplicated opioid dependence F11.20 [facility] [address] [place] [address] Dec, Uncomplicated opioid dependence F11.20 [facility] [id number] [place] [address] 97587- 4204 Dec, Uncomplicated opioid dependence F11.20 [facility] [address] [place] [address] Dec, Uncomplicated opioid dependence F11.20 [facility] [address] [address] Dec, [facility] [id number] [place] [address] 32222- 9503 Dec, Uncomplicated opioid dependence F11.20 [facility] [id number] [place] [address] 95053- 3406 Dec, [facility] [address] [place] [address] Dec, Uncomplicated opioid dependence F11.20 [facility] [id number] [place] [address] 23500- 9684 Dec, [facility] [id number] [place] [address] 40027- 1414 Dec, Uncomplicated opioid dependence F11.20 [facility] [id number] [place] [address] 85077- 1565 Dec, Uncomplicated opioid dependence F11.20 [facility] [id number] [place] [address] 49865- 2200 Dec, [facility] [address] [place] [address] Nov, Uncomplicated opioid dependence F11.20 [facility] [id number] [place] [address] 83966- 6717 Nov, Other cardiac arrhythmia I49.8 [facility] [address] [place] [address] Nov, Uncomplicated opioid dependence F11.20 and Marijuana abuse F12.10 [facility] [id number] [place] [address] 89509- 9950 Nov, Uncomplicated opioid dependence F11.20 and Bradycardia R00.1 [facility] [id number] [place] [address] 29793- 0069 Nov, [facility] [address] [place] [address] Nov, Uncomplicated opioid dependence F11.20 and Marijuana abuse F12.10 [facility] [address] [place] [address] October, Uncomplicated opioid dependence F11.20 and Marijuana abuse F12.10 [facility] [id number] [place] [address] 44091- 7841 October, Uncomplicated opioid dependence F11.20 [facility] [id number] [place] [address] 32987- 8428 October, [facility] [address] [place] [address] October, Uncomplicated opioid dependence F11.20 [facility] [id number] [place] [address] 62850- 5999 October, Uncomplicated opioid dependence F11.20 [facility] [address] 04[address]- 1481 October, Opioid abuse F11.10 and Injection of illicit drug within last 12 months F19.90 [facility] [address] [place] [address] October, Uncomplicated opioid dependence F11.20 and Marijuana abuse F12.10 [facility] [id number] [place] [address] 13433- 4442 October, [facility] [address] [place] [address] October, Uncomplicated opioid dependence F11.20 and Marijuana abuse F12.10 [facility] [id number] [place] [address] 87722- 1422 Sep, Chronic obstructive pulmonary disease, unspecified COPD type J44.9 ; Cigarette nicotine dependence with other nicotine-induced disorder F17.218 and PAC (premature atrial contraction) I49.1 [facility] [address] [place] [address] Sep, Uncomplicated opioid dependence F11.20 and Marijuana abuse F12.10 [facility] [id number] [place] [address] 96377- 5817 Sep, [facility] [id number] [place] [address] 85517- 7179 Sep, [facility] [id number] [address]- 6728 Sep, [facility] [id number] [place] [address] 17154- 5576 Jun, [facility] [id number] [place] [address] 68039- 9065 Jun, [facility] [id number] [place] [address] 74362- 1252 May, Chronic obstructive pulmonary disease, unspecified COPD type J44.9 [facility] [id number] [place] [address] 44766- 3503 May, Overflow incontinence of urine N39.490 [facility] [id number] [place] [address] 57712- 0929 Apr, Bronchitis J40 ; Chronic obstructive pulmonary disease, unspecified COPD type J44.9 and Cigarette nicotine dependence with other nicotine-induced disorder F17.218 [facility] [address] [place] [address] 83766- 5396 Apr, [facility] [address] [place] [address] 00777- 9160 Jan, Bronchitis J40 [facility] [address] [place] [address] 88698- 6735 Jan, Bronchitis J40 [facility] [id number] [place] [address] 72211- 9017 Dec, Bronchitis J40 ; Low back pain M54.5 and Other chronic pain G89.29 [facility] [address] [address]- [address] Sep, [facility] [id number] [place] [address] 28747- 5252 Sep, [facility] [id number] [place] [address] 57331- 0278 Nov, [facility] [id number] [place] [address] [place] [address] Nov, IMMUNIZATIONS No Known Immunizations SOCIAL HISTORY Never Assessed REASON FOR VISIT MAT F/U PLAN OF CARE Activity Details Follow Up 4 Weeks Reason:MAT VITAL SIGNS Height 68 in 2018-01-02 Weight 119.3 lbs 2018-01-02 Temperature 98.0 degrees Fahrenheit 2018-01-02 Heart Rate 57 bpm 2018-01-02 Respiratory Rate 20 2018-01-02 BMI 18.14 kg/m2 2018-01-02 Blood pressure systolic 122 mmHg 2018-01-02 Blood pressure diastolic 68 mmHg 2018-01-02 MEDICATIONS Medication Instructions Dosage Frequency Start Date End Date Duration Status ProAir HFA 108 (90 Base) MCG/ACT Inhalation every 4 hrs. Please voucher 2 puffs as needed Jun, Active Suboxone 8-2 MG Sublingual Once a day 1.5 film under the tongue and allow to dissolve 24h Dec, 4 days Active RESULTS No Results PROCEDURES No [...]
--- OUTSIDE RECORDS SUMMARY | 2018-04-14 14:51 | XMS REPORT ---
Author Author CONOR GO Organization [facility] Address [address] [place] [address] Care Team Providers Care Turkey Cleaner Name Role Phone CONOR GO Unavailable PROBLEMS Type Condition ICD9-CM Code WQI55-WX Code Onset Dates Condition Status SNOMED Code Problem Low back pain M54.5 Active 311382381 Problem Cigarette nicotine dependence with other nicotine-induced disorder F17.218 Active 99270189 Problem Chronic obstructive pulmonary disease, unspecified COPD type J44.9 Active 06101605 Problem PVCs (premature ventricular contractions) I49.3 Active 20787038 Problem Other cardiac arrhythmia I49.8 Active 39955436 Problem Bradycardia R00.1 Active 68211369 Problem PAC (premature atrial contraction) I49.1 Active 894650592 Problem Uncomplicated opioid dependence F11.20 Active 68210590 Problem Marijuana abuse F12.10 Active 24617848 ALLERGIES No Information ENCOUNTERS Encounter Location Date Diagnosis [facility] [address] [address] Mar, [facility] [address] [place] [address] Feb, [facility] [id number] [place] [address]6538- 4633 Feb, Uncomplicated opioid dependence F11.20 [facility] [address] [place] [address] Feb, [facility] [id number] [place] [address] 18029- 9336 Jan, Uncomplicated opioid dependence F11.20 [facility] [address] [place] [address] Jan, [facility] [address] [address] Jan, Uncomplicated opioid dependence F11.20 [facility] [id number] [place] [address] 06727- 9748 Jan, Uncomplicated opioid dependence F11.20 [facility] [address] [place] [address] Jan, Uncomplicated opioid dependence F11.20 [facility] [id number] [place] [address] 08036- 6753 Jan, Uncomplicated opioid dependence F11.20 [facility] [address] [place] [address] Jan, Uncomplicated opioid dependence F11.20 [facility] [address] [address] Jan, Abnormal EKG R94.31 ; PAC (premature atrial contraction) I49.1 ; PVCs (premature ventricular contractions) I49.3 ; Dyspnea on exertion R06.09 ; Chronic obstructive pulmonary disease, unspecified COPD type J44.9 ; History of drug use Z87.898 and Tobacco use Z72.0 [facility] [address] [address] Jan, Uncomplicated opioid dependence F11.20 [facility] [address] [place] [address] Jan, Uncomplicated opioid dependence F11.20 [facility] [id number] [place] [address] 81599- 5751 Dec, Chronic obstructive pulmonary disease, unspecified COPD type J44.9 and Uncomplicated opioid dependence F11.20 [facility] [id number] [place] [address] 99357- 6030 Dec, Uncomplicated opioid dependence F11.20 [facility] [address] [place] [address] Dec, Uncomplicated opioid dependence F11.20 [facility] [id number] [place] [address] 56089- 2263 Dec, Uncomplicated opioid dependence F11.20 [facility] [address] [place] [address] Dec, Uncomplicated opioid dependence F11.20 [facility] [address] [address] Dec, [facility] [id number] [place] [address] 96302- 7239 Dec, Uncomplicated opioid dependence F11.20 [facility] [id number] [place] [address] 50754- 4649 Dec, [facility] [address] [place] [address] Dec, Uncomplicated opioid dependence F11.20 [facility] [id number] [place] [address] 72370- 2919 Dec, [facility] [id number] [place] [address] 11324- 4965 Dec, Uncomplicated opioid dependence F11.20 [facility] [id number] [place] [address] 42177- 3612 Dec, Uncomplicated opioid dependence F11.20 [facility] [id number] [place] [address] 58176- 3440 Dec, [facility] [address] [place] [address] Nov, Uncomplicated opioid dependence F11.20 [facility] [id number] [place] [address] 76410- 5917 Nov, Other cardiac arrhythmia I49.8 [facility] [address] [place] [address] Nov, Uncomplicated opioid dependence F11.20 and Marijuana abuse F12.10 [facility] [id number] [place] [address] 82257- 1396 Nov, Uncomplicated opioid dependence F11.20 and Bradycardia R00.1 [facility] [id number] [place] [address] 27403- 8292 Nov, [facility] [address] [place] [address] Nov, Uncomplicated opioid dependence F11.20 and Marijuana abuse F12.10 [facility] [address] [place] [address] October, Uncomplicated opioid dependence F11.20 and Marijuana abuse F12.10 [facility] [id number] [place] [address] 33109- 3927 October, Uncomplicated opioid dependence F11.20 [facility] [id number] [place] [address] 13654- 6390 October, [facility] [address] [place] [address] October, Uncomplicated opioid dependence F11.20 [facility] [id number] [place] [address] 24518- 8888 October, Uncomplicated opioid dependence F11.20 [facility] [id number] [place] [address] 02835- 1381 October, Opioid abuse F11.10 and Injection of illicit drug within last 12 months F19.90 [facility] [address] [place] [address] October, Uncomplicated opioid dependence F11.20 and Marijuana abuse F12.10 [facility] [id number] [place] [address] 29321- 8453 October, [facility] [address] [place] [address] October, Uncomplicated opioid dependence F11.20 and Marijuana abuse F12.10 [facility] [id number] [place] [address] 41051- 8016 Sep, Chronic obstructive pulmonary disease, unspecified COPD type J44.9 ; Cigarette nicotine dependence with other nicotine-induced disorder F17.218 and PAC (premature atrial contraction) I49.1 [facility] [address] [place] [address] Sep, Uncomplicated opioid dependence F11.20 and Marijuana abuse F12.10 [facility] [id number] [place] [address] 59524- 1438 Sep, [facility] [id number] [place] [address] 28275- 1411 Sep, [facility] [id number] [address] Sep, [facility] [id number] [place] [address] 10589- 7715 Jun, [facility] [id number] [place] [address] 87117- 2940 Jun, [facility] [id number] [place] [address] 51295- 3564 May, Chronic obstructive pulmonary disease, unspecified COPD type J44.9 [facility] [id number] [place] [address] 62521- 5550 May, Overflow incontinence of urine N39.490 [facility] [id number] [place] [address] 21406- 2185 Apr, Bronchitis J40 ; Chronic obstructive pulmonary disease, unspecified COPD type J44.9 and Cigarette nicotine dependence with other nicotine-induced disorder F17.218 [facility] [id number] [place] [address] 65917- 5832 Apr, [facility] [id number] [place] [address] 61451- 4558 Jan, Bronchitis J40 [facility] [id number] [place] [address] 08976- 3060 Jan, Bronchitis J40 [facility] [id number] [place] [address] 89410- 5358 Dec, Bronchitis J40 ; Low back pain M54.5 and Other chronic pain G89.29 [facility] [id number] [place] [address] 76593- 9558 Sep, [facility] [id number] [place] [address] 57293- 0779 13 Sep, 2014 [facility] [id number] [place] [address] 53995- 3495 Nov, [facility] [id number] [place] [address] 04475- 5458 Nov, IMMUNIZATIONS No Known Immunizations SOCIAL HISTORY Never Assessed REASON FOR VISIT Induction Day 1, COWS 3; last opiate use was or tuesday of last week PLAN OF CARE Activity Details Follow Up 2 Weeks Reason: VITAL SIGNS MEDICATIONS Unknown Medications RESULTS No [...]
--- OUTSIDE RECORDS SUMMARY | 2018-04-14 14:51 | XMS REPORT ---
Author Author CONOR GO Organization [facility] Address [address] [place] [address] Care Team Providers Care Financial Aid Officer Name Role Phone CONOR GO Unavailable PROBLEMS Type Condition ICD9-CM Code DVM35-YQ Code Onset Dates Condition Status SNOMED Code Problem Low back pain M54.5 Active 603151969 Problem Cigarette nicotine dependence with other nicotine-induced disorder F17.218 Active 37561413 Problem Chronic obstructive pulmonary disease, unspecified COPD type J44.9 Active 56421910 Problem PVCs (premature ventricular contractions) I49.3 Active 65753743 Problem Other cardiac arrhythmia I49.8 Active 20841015 Problem Bradycardia R00.1 Active 49932727 Problem PAC (premature atrial contraction) I49.1 Active 331090462 Problem Uncomplicated opioid dependence F11.20 Active 90780637 Problem Marijuana abuse F12.10 Active 78506409 ALLERGIES No Information ENCOUNTERS Encounter Location Date Diagnosis [facility] [address] [address] Mar, [facility] [address] [place] [address] Feb, [facility] [id number] [place] [address] 82055- 1887 Jan, Uncomplicated opioid dependence F11.20 [facility] [address] [place] [address] Jan, [facility] [id number] [place] [address] 23048- 1771 Jan, Uncomplicated opioid dependence F11.20 [facility] [address] 19484- 4865 Jan, Uncomplicated opioid dependence F11.20 [facility] [address] [place] [address] Jan, Uncomplicated opioid dependence F11.20 [facility] [id number] [place] [address] 55664- 1732 Jan, Uncomplicated opioid dependence F11.20 [facility] [address] [place] [address] Jan, Uncomplicated opioid dependence F11.20 [facility] [id number] [place] [address] 60940- 9633 Jan, Abnormal EKG R94.31 ; PAC (premature atrial contraction) I49.1 ; PVCs (premature ventricular contractions) I49.3 ; Dyspnea on exertion R06.09 ; Chronic obstructive pulmonary disease, unspecified COPD type J44.9 ; History of drug use Z87.898 and Tobacco use Z72.0 [facility] [id number] [place] [address] 51391- 6873 Jan, Uncomplicated opioid dependence F11.20 [facility] [address] [place] [address] Jan, Uncomplicated opioid dependence F11.20 [facility] [id number] [place] [address] 92440- 1930 Dec, Chronic obstructive pulmonary disease, unspecified COPD type J44.9 and Uncomplicated opioid dependence F11.20 [facility] [id number] [place] [address] 93129- 8214 Dec, Uncomplicated opioid dependence F11.20 [facility] [address] [place] [address] Dec, Uncomplicated opioid dependence F11.20 [facility] [id number] [place] [address] 56520- 5136 Dec, Uncomplicated opioid dependence F11.20 [facility] [address] [place] [address] Dec, Uncomplicated opioid dependence F11.20 [facility] [id number] [place] [address] 64461- 9915 Dec, [facility] [id number] [place] [address] 95679- 8351 Dec, Uncomplicated opioid dependence F11.20 [facility] [id number] [address] Dec, [facility] [address] [place] [address] Dec, Uncomplicated opioid dependence F11.20 [facility] [address] [place] [address] 26750- 3958 Dec, [facility] [id number] [place] [address] 73396- 2028 Dec, Uncomplicated opioid dependence F11.20 [facility] [id number] [place] [address] 47394- 7246 Dec, Uncomplicated opioid dependence F11.20 [facility] [id number] [place] [address] 34561- 8908 Dec, [facility] [address] [place] [address] Nov, Uncomplicated opioid dependence F11.20 [facility] [id number] [place] [address] 96768- 0315 Nov, Other cardiac arrhythmia I49.8 [facility] [address] [place] [address] Nov, Uncomplicated opioid dependence F11.20 and Marijuana abuse F12.10 [facility] [id number] [place] [address] 82618- 1243 Nov, Uncomplicated opioid dependence F11.20 and Bradycardia R00.1 [facility] [id number] [place] [address] 43992- 9521 Nov, [facility] [address] [place] [address] Nov, Uncomplicated opioid dependence F11.20 and Marijuana abuse F12.10 [facility] [address] [place] [address] October, Uncomplicated opioid dependence F11.20 and Marijuana abuse F12.10 [facility] [id number] [place] [address] 90862- 4936 October, Uncomplicated opioid dependence F11.20 [facility] [address] [place] [address] 31738- 2250 October, [facility] [address] [place] [address] October, Uncomplicated opioid dependence F11.20 [facility] [address] [place] [address] 25235- 4605 October, Uncomplicated opioid dependence F11.20 [facility] [id number] [place] [address] 51814- 0751 October, Opioid abuse F11.10 and Injection of illicit drug within last 12 months F19.90 [facility] [address] [place] [address] October, Uncomplicated opioid dependence F11.20 and Marijuana abuse F12.10 [facility] [id number] [place] [address] 23574- 7303 October, [facility] [address] [place] [address] October, Uncomplicated opioid dependence F11.20 and Marijuana abuse F12.10 [facility] [id number] [place] [address] 45268- 5132 Sep, Chronic obstructive pulmonary disease, unspecified COPD type J44.9 ; Cigarette nicotine dependence with other nicotine-induced disorder F17.218 and PAC (premature atrial contraction) I49.1 [facility] [address] [place] [address] Sep, Uncomplicated opioid dependence F11.20 and Marijuana abuse F12.10 [facility] [id number] [place] [address] 76352- 9291 Sep, [facility] [id number] [place] [address] 40680- 5047 Sep, [facility] [id number] [place] [address] 12240- 1037 Sep, [facility] [id number] [place] [address] 14986- 4531 Jun, [facility] [id number] [place] [address] 30691- 7105 Jun, [place] [address] [address] May, Chronic obstructive pulmonary disease, unspecified COPD type J44.9 [place] [id number] [place] [address] 53911- 9981 May, Overflow incontinence of urine N39.490 [place] [facility] [address] 78482- 3712 Apr, Bronchitis J40 ; Chronic obstructive pulmonary disease, unspecified COPD type J44.9 and Cigarette nicotine dependence with other nicotine-induced disorder F17.218 [place] [address] 13931- 1278 Apr, [place] [address] [address] Jan, Bronchitis J40 [place] [facility] [id number] [place] [address] 93137- 3924 Jan, Bronchitis J40 [place] [id number] [place] [address] 79803- 5559 Dec, Bronchitis J40 ; Low back pain M54.5 and Other chronic pain G89.29 [place] [facility] [id number] [place] [address] 18547- 2398 Sep, [place] [id number] [place] [address] 64397- 8935 Sep, [place] [id number] [place] [address] 58236- 9121 Nov, [place] [address] 09126- 3437 Nov, IMMUNIZATIONS No Known Immunizations SOCIAL HISTORY Never Assessed REASON FOR VISIT suboxone rx (12/30-01/02) PLAN OF CARE VITAL SIGNS MEDICATIONS Medication [...] hand cut off, got caught in dog [employer]
--- OUTSIDE RECORDS SUMMARY | 2018-04-14 14:51 | XMS REPORT ---
Author Author CONOR GO Organization [facility] Address [address] [place] [address] Care Team Providers Care Aviation Electronics Technician Name Role Phone CONOR GO Unavailable PROBLEMS Type Condition ICD9-CM Code AXM79-VN Code Onset Dates Condition Status SNOMED Code Problem Low back pain M54.5 Active 431667446 Problem Cigarette nicotine dependence with other nicotine-induced disorder F17.218 Active 07166244 Problem Chronic obstructive pulmonary disease, unspecified COPD type J44.9 Active 58615805 Problem PVCs (premature ventricular contractions) I49.3 Active 96474085 Problem Other cardiac arrhythmia I49.8 Active 30224799 Problem Bradycardia R00.1 Active 94769835 Problem PAC (premature atrial contraction) I49.1 Active 099903921 Problem Uncomplicated opioid dependence F11.20 Active 79213729 Problem Marijuana abuse F12.10 Active 26468195 ALLERGIES No Information ENCOUNTERS Encounter Location Date Diagnosis [facility] [address] [address] Mar, [facility] [address] [place] [address] Feb, [facility] [id number] [place] [address] 90339- 8952 Jan, Uncomplicated opioid dependence F11.20 [facility] [address] [place] [address] Jan, [facility] [id number] [place] [address] 79738- 7367 Jan, Uncomplicated opioid dependence F11.20 [facility] [address] [address] Jan, Uncomplicated opioid dependence F11.20 [facility] [address] [place] [address] Jan, Uncomplicated opioid dependence F11.20 [facility] [id number] [place] [address] 24750- 0114 Jan, Uncomplicated opioid dependence F11.20 [facility] [address] [place] [address] Jan, Uncomplicated opioid dependence F11.20 [facility] [id number] [place] [address] 17087- 8293 Jan, Abnormal EKG R94.31 ; PAC (premature atrial contraction) I49.1 ; PVCs (premature ventricular contractions) I49.3 ; Dyspnea on exertion R06.09 ; Chronic obstructive pulmonary disease, unspecified COPD type J44.9 ; History of drug use Z87.898 and Tobacco use Z72.0 [facility] [id number] [place] [address] 72620- 1655 Jan, Uncomplicated opioid dependence F11.20 [facility] [address] [place] [address] Jan, Uncomplicated opioid dependence F11.20 [facility] [id number] [place] [address] 76861- 5724 Dec, Chronic obstructive pulmonary disease, unspecified COPD type J44.9 and Uncomplicated opioid dependence F11.20 [facility] [id number] [place] [address] 49201- 4886 Dec, Uncomplicated opioid dependence F11.20 [facility] [address] [place] [address] Dec, Uncomplicated opioid dependence F11.20 [facility] [id number] [place] [address] 10105- 3419 Dec, Uncomplicated opioid dependence F11.20 [facility] [address] [place] [address] Dec, Uncomplicated opioid dependence F11.20 [facility] [id number] [place] [address] 88703- 2971 Dec, [facility] [id number] [place] [address] 54476- 3549 Dec, Uncomplicated opioid dependence F11.20 [facility] [address] [address] Dec, [facility] [address] [place] [address] Dec, Uncomplicated opioid dependence F11.20 [facility] [address] [place] [address] 79839- 2640 Dec, [facility] [id number] [place] [address] 89354- 0647 Dec, Uncomplicated opioid dependence F11.20 [facility] [id number] [place] [address] 34761- 8773 Dec, Uncomplicated opioid dependence F11.20 [facility] [id number] [place] [address] 91693- 7530 Dec, [facility] [address] [place] [address] Nov, Uncomplicated opioid dependence F11.20 [facility] [id number] [place] [address] 20700- 5605 Nov, Other cardiac arrhythmia I49.8 [facility] [address] [place] [address] Nov, Uncomplicated opioid dependence F11.20 and Marijuana abuse F12.10 [facility] [id number] [place] [address] 43562- 2310 Nov, Uncomplicated opioid dependence F11.20 and Bradycardia R00.1 [facility] [id number] [place] [address] 72113- 2405 Nov, [facility] [address] [place] [address] Nov, Uncomplicated opioid dependence F11.20 and Marijuana abuse F12.10 [facility] [address] [place] [address] October, Uncomplicated opioid dependence F11.20 and Marijuana abuse F12.10 [facility] [id number] [place] [address] 27358- 1296 October, Uncomplicated opioid dependence F11.20 [facility] [address] [place] [address] 99640- 4383 October, [facility] [address] [place] [address] October, Uncomplicated opioid dependence F11.20 [facility] [address] [place] [address] 56251- 3737 October, Uncomplicated opioid dependence F11.20 [facility] [id number] [place] [address] 68711- 6419 October, Opioid abuse F11.10 and Injection of illicit drug within last 12 months F19.90 [facility] [address] [place] [address] October, Uncomplicated opioid dependence F11.20 and Marijuana abuse F12.10 [facility] [id number] [place] [address] 45222- 3307 October, [facility] [address] [place] [address] October, Uncomplicated opioid dependence F11.20 and Marijuana abuse F12.10 [facility] [id number] [place] [address] 53209- 4852 Sep, Chronic obstructive pulmonary disease, unspecified COPD type J44.9 ; Cigarette nicotine dependence with other nicotine-induced disorder F17.218 and PAC (premature atrial contraction) I49.1 [facility] [address] [place] [address] Sep, Uncomplicated opioid dependence F11.20 and Marijuana abuse F12.10 [facility] [id number] [place] [address] 51426- 0281 Sep, [facility] [id number] [place] [address] 01475- 9465 Sep, [facility] [id number] [place] [address] 41048- 9371 Sep, [facility] [address] [place] [address] 82581- 2397 Jun, [facility] [id number] [place] [address] 45465- 1047 Jun, [facility] [id number] [place] [address] 29809- 6750 May, Chronic obstructive pulmonary disease, unspecified COPD type J44.9 [facility] [id number] [place] [address] 44163- 8742 May, Overflow incontinence of urine N39.490 [place] [address] [address]- 1149 Apr, Bronchitis J40 ; Chronic obstructive pulmonary disease, unspecified COPD type J44.9 and Cigarette nicotine dependence with other nicotine-induced disorder F17.218 [facility] [id number] [place] [address] 78637- 9545 Apr, [facility] [id number] [place] [address] 85530- 7421 Jan, Bronchitis J40 [facility] [id number] [place] [address] 40469- 5742 Jan, Bronchitis J40 [place] [facility] [id number] [place] [address] 59382- 4752 Dec, Bronchitis J40 ; Low back pain M54.5 and Other chronic pain G89.29 [facility] [id number] [place] [address] 37945- 4347 Sep, [facility] [id number] [place] [address] 35544- 0019 Sep, [facility] [id number] [place] [address] 15176- 2760 Nov, [place] [address] [address]10- [address]156 Nov, IMMUNIZATIONS No Known Immunizations SOCIAL HISTORY Never Assessed REASON FOR VISIT Induction Day 3 PLAN OF CARE VITAL SIGNS MEDICATIONS Medication Instructions Dosage Frequency Start Date End Date Duration Status Suboxone 8-2 MG Sublingual Once a day 1 film under the tongue and allow to dissolve 24h Dec, 7 days Active RESULTS No Results PROCEDURES No [...]
--- OUTSIDE RECORDS SUMMARY | 2018-04-14 14:52 | XMS REPORT ---
Author Author CONOR GO Organization [facility] Address [address] [place] [address] Care Team Providers Care Pasting Inspector Name Role Phone CONOR GO Unavailable PROBLEMS Type Condition ICD9-CM Code TWJ22-SW Code Onset Dates Condition Status SNOMED Code Problem Low back pain M54.5 Active 144224812 Problem Cigarette nicotine dependence with other nicotine-induced disorder F17.218 Active 13583997 Problem Chronic obstructive pulmonary disease, unspecified COPD type J44.9 Active 62517162 Problem PVCs (premature ventricular contractions) I49.3 Active 83697124 Problem Other cardiac arrhythmia I49.8 Active 00856542 Problem Bradycardia R00.1 Active 20454186 Problem PAC (premature atrial contraction) I49.1 Active 522963743 Problem Uncomplicated opioid dependence F11.20 Active 28791982 Problem Marijuana abuse F12.10 Active 88746836 ALLERGIES No Information ENCOUNTERS Encounter Location Date Diagnosis [facility] [address] [address] Mar, [facility] [address] [place] [address] Feb, [facility] [id number] [place] [address] 80764- 0654 Jan, Uncomplicated opioid dependence F11.20 [facility] [address] [place] [address] Jan, [facility] [id number] [place] [address] 99673- 9698 Jan, Uncomplicated opioid dependence F11.20 [facility] [address] [address]- 3773 Jan, Uncomplicated opioid dependence F11.20 [facility] [address] [place] [address] Jan, Uncomplicated opioid dependence F11.20 [facility] [id number] [place] [address] 87715- 2724 Jan, Uncomplicated opioid dependence F11.20 [facility] [address] [place] [address] Jan, Uncomplicated opioid dependence F11.20 [facility] [id number] [place] [address] 78990- 5212 Jan, Abnormal EKG R94.31 ; PAC (premature atrial contraction) I49.1 ; PVCs (premature ventricular contractions) I49.3 ; Dyspnea on exertion R06.09 ; Chronic obstructive pulmonary disease, unspecified COPD type J44.9 ; History of drug use Z87.898 and Tobacco use Z72.0 [facility] [id number] [place] [address] 84498- 5874 Jan, Uncomplicated opioid dependence F11.20 [facility] [address] [place] [address] Jan, Uncomplicated opioid dependence F11.20 [facility] [id number] [place] [address] 10716- 6436 Dec, Chronic obstructive pulmonary disease, unspecified COPD type J44.9 and Uncomplicated opioid dependence F11.20 [facility] [id number] [place] [address] 31821- 0025 Dec, Uncomplicated opioid dependence F11.20 [facility] [address] [place] [address] Dec, Uncomplicated opioid dependence F11.20 [facility] [id number] [place] [address] 05931- 3131 Dec, Uncomplicated opioid dependence F11.20 [facility] [address] [place] [address] Dec, Uncomplicated opioid dependence F11.20 [facility] [id number] [place] [address] 21552- 4953 Dec, [facility] [id number] [place] [address] 90885- 9109 Dec, Uncomplicated opioid dependence F11.20 [facility] [address] [place] [address] Dec, [facility] [address] [place] [address] Dec, Uncomplicated opioid dependence F11.20 [facility] [address] [place] [address] 99559- 9759 Dec, [facility] [id number] [place] [address] 57899- 5822 Dec, Uncomplicated opioid dependence F11.20 [facility] [id number] [place] [address] 11705- 1013 Dec, Uncomplicated opioid dependence F11.20 [facility] [id number] [place] [address] 26911- 6636 Dec, [facility] [address] [place] [address] Nov, Uncomplicated opioid dependence F11.20 [facility] [id number] [place] [address] 50451- 9770 Nov, Other cardiac arrhythmia I49.8 [facility] [address] [place] [address] Nov, Uncomplicated opioid dependence F11.20 and Marijuana abuse F12.10 [facility] [id number] [place] [address] 04161- 1760 Nov, Uncomplicated opioid dependence F11.20 and Bradycardia R00.1 [facility] [id number] [place] [address] 05742- 8823 Nov, [facility] [address] [place] [address] Nov, Uncomplicated opioid dependence F11.20 and Marijuana abuse F12.10 [facility] [address] [place] [address] October, Uncomplicated opioid dependence F11.20 and Marijuana abuse F12.10 [facility] [id number] [place] [address] 95592- 8673 October, Uncomplicated opioid dependence F11.20 [facility] [address] [place] [address] 47257- 8432 October, [facility] [address] [place] [address] October, Uncomplicated opioid dependence F11.20 [facility] [address] [place] [address] 16197- 7745 October, Uncomplicated opioid dependence F11.20 [facility] [id number] [place] [address] 92266- 1994 October, Opioid abuse F11.10 and Injection of illicit drug within last 12 months F19.90 [facility] [address] [place] [address] October, Uncomplicated opioid dependence F11.20 and Marijuana abuse F12.10 [facility] [id number] [place] [address] 12133- 1737 October, [facility] [address] [place] [address] October, Uncomplicated opioid dependence F11.20 and Marijuana abuse F12.10 [facility] [id number] [place] [address] 00288- 1148 Sep, Chronic obstructive pulmonary disease, unspecified COPD type J44.9 ; Cigarette nicotine dependence with other nicotine-induced disorder F17.218 and PAC (premature atrial contraction) I49.1 [facility] [address] [place] [address] Sep, Uncomplicated opioid dependence F11.20 and Marijuana abuse F12.10 [facility] [id number] [place] [address] 56465- 1670 Sep, [facility] [id number] [place] [address] 01109- 1746 Sep, [facility] [id number] [place] [address] 33041- 4388 Sep, [facility] [address] [place] [address] 75738- 0659 Jun, [facility] [id number] [place] [address] 42650- 4617 Jun, [facility] [id number] [place] [address] 12061- 7155 May, Chronic obstructive pulmonary disease, unspecified COPD type J44.9 [facility] [id number] [place] [address] 00195- 7436 May, Overflow incontinence of urine N39.490 [facility] [id number] [place] [address] 26440- 7010 Apr, Bronchitis J40 ; Chronic obstructive pulmonary disease, unspecified COPD type J44.9 and Cigarette nicotine dependence with other nicotine-induced disorder F17.218 [facility] [id number] [place] [address] 99089- 3062 Apr, [facility] [id number] [place] [address] 68073- 1682 Jan, Bronchitis J40 [facility] [id number] [place] [address] 26716- 1826 Jan, Bronchitis J40 [facility] [id number] [place] [address] 41524- 2215 Dec, Bronchitis J40 ; Low back pain M54.5 and Other chronic pain G89.29 [facility] [id number] [place] [address] 46992- 6966 Sep, [facility] [id number] [place] [address] 67731- 1304 Sep, [facility] [id number] [place] [address] 03381- 6184 Nov, [facility] [id number] [place] [address] 41583- 9161 Nov, IMMUNIZATIONS No Known Immunizations SOCIAL HISTORY Never Assessed REASON FOR VISIT Lab (walk-in) PLAN OF CARE VITAL SIGNS MEDICATIONS Unknown Medications RESULTS Name Result Date Reference Range URINE DRUG SCREEN (IN HOUSE) 2017-12-13 Lot # [id number] Exp date 02/2019 Control + COCAINE Negative AMPH Negative MTD Negative THC Negative OPIATE POSITIVE BENZO Negative PCP Negative BAR Negative OXY POSITIVE MAMP Negative BUP Negative MDMA Negative TCA N/A PROCEDURES Procedure Date Ordered Result Body Site DRUG TEST PRSMV DIR OPT OBS December 13, 2017 INSTRUCTIONS MEDICATIONS ADMINISTERED No Known Medications [...]
--- OUTSIDE RECORDS SUMMARY | 2018-04-14 14:52 | XMS REPORT ---
Author Author ELSA SANTOSH [facility] Address [address] [place] [address] Care Team Providers Care Sales Technician Name Role Phone SANTOSH HUNTER Unavailable PROBLEMS Type Condition ICD9-CM Code [id number] Code Onset Dates Condition Status SNOMED Code Problem Low back pain M54.5 Active 189279795 Problem Cigarette nicotine dependence with other nicotine-induced disorder F17.218 Active 67108921 Problem Chronic obstructive pulmonary disease, unspecified COPD type J44.9 Active 19877673 Problem PVCs (premature ventricular contractions) I49.3 Active 83208021 Problem Other cardiac arrhythmia I49.8 Active 32086127 Problem Bradycardia R00.1 Active 02729801 Problem PAC (premature atrial contraction) I49.1 Active 427974814 Problem Uncomplicated opioid dependence F11.20 Active 84943220 Problem Marijuana abuse F12.10 Active 30684278 ALLERGIES No Information ENCOUNTERS Encounter Location Date Diagnosis [facility] [address] [address] Mar, [facility] [address] [place] [address] Feb, [facility] [id number] [place] [address] 95464- 5539 Jan, Uncomplicated opioid dependence F11.20 [facility] [address] [place] [address] Jan, [facility] [id number] [place] [address] 76421- 7229 Jan, Uncomplicated opioid dependence F11.20 [facility] [address] [address] Jan, Uncomplicated opioid dependence F11.20 [facility] [address] [place] [address] Jan, Uncomplicated opioid dependence F11.20 [facility] [id number] [place] [address] 56671- 4749 Jan, Uncomplicated opioid dependence F11.20 [facility] [address] [place] [address] Jan, Uncomplicated opioid dependence F11.20 [facility] [id number] [place] [address] 01684- 9264 Jan, Abnormal EKG R94.31 ; PAC (premature atrial contraction) I49.1 ; PVCs (premature ventricular contractions) I49.3 ; Dyspnea on exertion R06.09 ; Chronic obstructive pulmonary disease, unspecified COPD type J44.9 ; History of drug use Z87.898 and Tobacco use Z72.0 [facility] [id number] [place] [address] 39927- 3458 Jan, Uncomplicated opioid dependence F11.20 [facility] [address] [place] [address] Jan, Uncomplicated opioid dependence F11.20 [facility] [id number] [place] [address] 99036- 0588 Dec, Chronic obstructive pulmonary disease, unspecified COPD type J44.9 and Uncomplicated opioid dependence F11.20 [facility] [id number] [place] [address] 54875- 8511 Dec, Uncomplicated opioid dependence F11.20 [facility] [address] [place] [address] Dec, Uncomplicated opioid dependence F11.20 [facility] [id number] [place] [address] 00203- 7402 Dec, Uncomplicated opioid dependence F11.20 [facility] [address] [place] [address] Dec, Uncomplicated opioid dependence F11.20 [facility] [id number] [place] [address] 98268- 7194 Dec, [facility] [address] [address] Dec, Uncomplicated opioid dependence F11.20 [facility] [id number] [place] [address] 69641- 4261 Dec, [facility] [address] [place] [address] Dec, Uncomplicated opioid dependence F11.20 [facility] [id number] [place] [address] 28809- 5193 Dec, [facility] [address] 8[address]- 1407 Dec, Uncomplicated opioid dependence F11.20 [facility] [id number] [place] [address] 36816- 9051 Dec, Uncomplicated opioid dependence F11.20 [facility] [id number] [place] [address] 58508- 7236 Dec, [facility] [address] [place] [address] Nov, Uncomplicated opioid dependence F11.20 [facility] [id number] [place] [address] 11005- 8297 Nov, Other cardiac arrhythmia I49.8 [facility] [address] [place] [address] Nov, Uncomplicated opioid dependence F11.20 and Marijuana abuse F12.10 [facility] [id number] [place] [address] 20214- 8878 Nov, Uncomplicated opioid dependence F11.20 and Bradycardia R00.1 [facility] [id number] [place] [address] 10433- 7028 Nov, [facility] [address] [place] [address] Nov, Uncomplicated opioid dependence F11.20 and Marijuana abuse F12.10 [facility] [address] [place] [address] October, Uncomplicated opioid dependence F11.20 and Marijuana abuse F12.10 [facility] [id number] [place] [address] 44285- 4598 October, Uncomplicated opioid dependence F11.20 [facility] [address] [place] [address] October, [facility] [address] [place] [address] October, Uncomplicated opioid dependence F11.20 [facility] [address] [place] [address] 64235- 2897 October, Uncomplicated opioid dependence F11.20 [facility] [id number] [place] [address] 19054- 9191 October, Opioid abuse F11.10 and Injection of illicit drug within last 12 months F19.90 [facility] [address] [place] [address] October, Uncomplicated opioid dependence F11.20 and Marijuana abuse F12.10 [facility] [id number] [place] [address] 89287- 4718 October, [facility] [address] [place] [address] October, Uncomplicated opioid dependence F11.20 and Marijuana abuse F12.10 [facility] [id number] [place] [address] 90943- 5918 Sep, Chronic obstructive pulmonary disease, unspecified COPD type J44.9 ; Cigarette nicotine dependence with other nicotine-induced disorder F17.218 and PAC (premature atrial contraction) I49.1 [facility] [address] [place] [address] Sep, Uncomplicated opioid dependence F11.20 and Marijuana abuse F12.10 [facility] [address] [place] [address] 38336- 9401 Sep, [facility] [id number] [place] [address] 08049- 5463 Sep, [facility] [id number] [place] [address] 55091- 2082 Sep, [facility] [id number] [place] [address] 83289- 3444 Jun, [facility] [id number] [place] [address] 35758- 4834 Jun, [facility] [id number] [place] [address] 79218- 3172 May, Chronic obstructive pulmonary disease, unspecified COPD type J44.9 [facility] [id number] [place] [address] 61195- 6972 May, Overflow incontinence of urine N39.490 [facility] [id number] [place] [address] 29226- 1331 Apr, Bronchitis J40 ; Chronic obstructive pulmonary disease, unspecified COPD type J44.9 and Cigarette nicotine dependence with other nicotine-induced disorder F17.218 [facility] [id number] [place] [address] 48172- 2571 Apr, [facility] [id number] [place] [address] 29615- 7827 Jan, Bronchitis J40 [facility] [id number] [place] [address] 11505- 6981 Jan, Bronchitis J40 [facility] [id number] [place] [address] 05711- 3195 Dec, Bronchitis J40 ; Low back pain M54.5 and Other chronic pain G89.29 [facility] [id number] [place] [address] 97003- 1891 Sep, [facility] [facility] [id number] [place] [address] 01291- 1773 Sep, [place] [facility] [id number] [place] [address] 69987- 0130 Nov, [facility] [id number] [place] [address] 53917- 4390 Nov, IMMUNIZATIONS No Known Immunizations SOCIAL HISTORY Never Assessed REASON FOR VISIT SUBAB-FU PLAN OF CARE Activity Details Follow Up 1 Week Reason:SUBABFU VITAL SIGNS MEDICATIONS Unknown Medications RESULTS No Results PROCEDURES Procedure Date Ordered Result Body Site Alcohol and/or drug services December 16, 2017 INSTRUCTIONS MEDICATIONS ADMINISTERED No Known Medications [...]
--- OUTSIDE RECORDS SUMMARY | 2018-04-14 14:52 | XMS REPORT ---
Author Author CONOR GO Organization [facility] Address [address] [place] [address] Care Team Providers Care Database Marketing Analyst Name Role Phone CONOR GO Unavailable PROBLEMS Type Condition ICD9-CM Code NXC90-OY Code Onset Dates Condition Status SNOMED Code Problem Low back pain M54.5 Active 333305078 Problem Cigarette nicotine dependence with other nicotine-induced disorder F17.218 Active 95490296 Problem Chronic obstructive pulmonary disease, unspecified COPD type J44.9 Active 72658586 Problem PVCs (premature ventricular contractions) I49.3 Active 49886806 Problem Other cardiac arrhythmia I49.8 Active 76882469 Problem Bradycardia R00.1 Active 16281014 Problem PAC (premature atrial contraction) I49.1 Active 430869434 Problem Uncomplicated opioid dependence F11.20 Active 51018318 Problem Marijuana abuse F12.10 Active 85802136 ALLERGIES No Information ENCOUNTERS Encounter Location Date Diagnosis [facility] [address] [address] Mar, [facility] [address] [place] [address] Feb, [facility] [id number] [place] [address] 91735- 8495 Jan, Uncomplicated opioid dependence F11.20 [facility] [address] [place] [address] Jan, [facility] [id number] [place] [address] 26297- 9957 Jan, Uncomplicated opioid dependence F11.20 [facility] [address] 06025- 0806 Jan, Uncomplicated opioid dependence F11.20 [facility] [address] [place] [address] Jan, Uncomplicated opioid dependence F11.20 [facility] [id number] [place] [address] 29012- 3476 Jan, Uncomplicated opioid dependence F11.20 [facility] [address] [place] [address] Jan, Uncomplicated opioid dependence F11.20 [facility] [id number] [place] [address] 76236- 8148 Jan, Abnormal EKG R94.31 ; PAC (premature atrial contraction) I49.1 ; PVCs (premature ventricular contractions) I49.3 ; Dyspnea on exertion R06.09 ; Chronic obstructive pulmonary disease, unspecified COPD type J44.9 ; History of drug use Z87.898 and Tobacco use Z72.0 [facility] [id number] [place] [address] 73749- 8358 Jan, Uncomplicated opioid dependence F11.20 [facility] [address] [place] [address] Jan, Uncomplicated opioid dependence F11.20 [facility] [id number] [place] [address] 91905- 0189 Dec, Chronic obstructive pulmonary disease, unspecified COPD type J44.9 and Uncomplicated opioid dependence F11.20 [facility] [id number] [place] [address] 62353- 0786 Dec, Uncomplicated opioid dependence F11.20 [facility] [address] [place] [address] Dec, Uncomplicated opioid dependence F11.20 [facility] [id number] [place] [address] 53091- 0220 Dec, Uncomplicated opioid dependence F11.20 [facility] [address] [place] [address] Dec, Uncomplicated opioid dependence F11.20 [facility] [id number] [place] [address] 19669- 8739 Dec, [facility] [id number] [place] [address] 53966- 5782 Dec, Uncomplicated opioid dependence F11.20 [facility] [address] [address] Dec, [facility] [address] [place] [address] Dec, Uncomplicated opioid dependence F11.20 [facility] [address] [place] [address] 71423- 0640 Dec, [facility] [id number] [place] [address] 51802- 6621 Dec, Uncomplicated opioid dependence F11.20 [facility] [id number] [place] [address] 81409- 6931 Dec, Uncomplicated opioid dependence F11.20 [facility] [id number] [place] [address] 75529- 7531 Dec, [facility] [address] [place] [address] Nov, Uncomplicated opioid dependence F11.20 [facility] [id number] [place] [address] 85606- 2600 Nov, Other cardiac arrhythmia I49.8 [facility] [address] [place] [address] Nov, Uncomplicated opioid dependence F11.20 and Marijuana abuse F12.10 [facility] [id number] [place] [address] 58467- 8312 Nov, Uncomplicated opioid dependence F11.20 and Bradycardia R00.1 [facility] [id number] [place] [address] 05926- 0534 Nov, [facility] [address] [place] [address] Nov, Uncomplicated opioid dependence F11.20 and Marijuana abuse F12.10 [facility] [address] [place] [address] October, Uncomplicated opioid dependence F11.20 and Marijuana abuse F12.10 [facility] [id number] [place] [address] 79677- 4475 October, Uncomplicated opioid dependence F11.20 [facility] [address] [place] [address] 20324- 0008 October, [facility] [address] [place] [address] October, Uncomplicated opioid dependence F11.20 [facility] [address] [place] [address] 47819- 7923 October, Uncomplicated opioid dependence F11.20 [facility] [id number] [place] [address] 99149- 8801 October, Opioid abuse F11.10 and Injection of illicit drug within last 12 months F19.90 [facility] [address] [place] [address] October, Uncomplicated opioid dependence F11.20 and Marijuana abuse F12.10 [facility] [id number] [place] [address] 77770- 1992 October, [facility] [address] [place] [address] October, Uncomplicated opioid dependence F11.20 and Marijuana abuse F12.10 [facility] [id number] [place] [address] 08265- 3803 Sep, Chronic obstructive pulmonary disease, unspecified COPD type J44.9 ; Cigarette nicotine dependence with other nicotine-induced disorder F17.218 and PAC (premature atrial contraction) I49.1 [facility] [address] [place] [address] Sep, Uncomplicated opioid dependence F11.20 and Marijuana abuse F12.10 [facility] [id number] [place] [address] 84914- 9954 Sep, [facility] [id number] [place] [address] 36863- 2210 Sep, [facility] [id number] [place] [address] 23319- 8794 Sep, [facility] [address] [place] [address] 01518- 7525 Jun, [facility] [id number] [place] [address] 37841- 6087 Jun, [facility] [address] 45442- 9255 May, Chronic obstructive pulmonary disease, unspecified COPD type J44.9 [facility] [id number] [place] [address] 52447- 9815 May, Overflow incontinence of urine N39.490 [facility] [facility] [address] 15665- 3794 Apr, Bronchitis J40 ; Chronic obstructive pulmonary disease, unspecified COPD type J44.9 and Cigarette nicotine dependence with other nicotine-induced disorder F17.218 [place] [address] 83979- 8267 Apr, [facility] [address] 32462- 9998 Jan, Bronchitis J40 [place] [facility] [id number] [place] [address] 13578- 5599 Jan, Bronchitis J40 [place] [id number] [place] [address] 29529- 5022 Dec, Bronchitis J40 ; Low back pain M54.5 and Other chronic pain G89.29 [facility] [id number] [place] [address] 52680- 9259 Sep, [place] [facility] [id number] [place] [address] 83032- 8073 Sep, [place] [id number] [place] [address] 56709- 7424 Nov, [facility] [facility] [address] 43546- 9252 Nov, IMMUNIZATIONS No Known Immunizations SOCIAL HISTORY Never Assessed REASON FOR VISIT random urine sample request PLAN OF CARE VITAL SIGNS MEDICATIONS Unknown [...]
--- OUTSIDE RECORDS SUMMARY | 2018-04-14 14:52 | XMS REPORT ---
Author Author CNOOR GO Organization [facility] Address [address] [place] [address] Care Team Providers Care Winder Tender Name Role Phone CONOR GO Unavailable PROBLEMS Type Condition ICD9-CM Code SVA52-QO Code Onset Dates Condition Status SNOMED Code Problem Low back pain M54.5 Active 862255915 Problem Cigarette nicotine dependence with other nicotine-induced disorder F17.218 Active 22944184 Problem Chronic obstructive pulmonary disease, unspecified COPD type J44.9 Active 60468811 Problem PVCs (premature ventricular contractions) I49.3 Active 89793155 Problem Other cardiac arrhythmia I49.8 Active 29442253 Problem Bradycardia R00.1 Active 95522155 Problem PAC (premature atrial contraction) I49.1 Active 072256235 Problem Uncomplicated opioid dependence F11.20 Active 94047261 Problem Marijuana abuse F12.10 Active 75638946 ALLERGIES No Information ENCOUNTERS Encounter Location Date Diagnosis [facility] [address] [address] Mar, [facility] [address] [place] [address] Feb, [facility] [id number] [place] [address] 80464- 2196 Jan, Uncomplicated opioid dependence F11.20 [facility] [address] [place] [address] Jan, [facility] [id number] [place] [address] 80090- 2824 Jan, Uncomplicated opioid dependence F11.20 [facility] [address] [address] Jan, Uncomplicated opioid dependence F11.20 [facility] [address] [place] [address] Jan, Uncomplicated opioid dependence F11.20 [facility] [id number] [place] [address] 84578- 7326 Jan, Uncomplicated opioid dependence F11.20 [facility] [address] [place] [address] Jan, Uncomplicated opioid dependence F11.20 [facility] [id number] [place] [address] 66341- 6223 Jan, Abnormal EKG R94.31 ; PAC (premature atrial contraction) I49.1 ; PVCs (premature ventricular contractions) I49.3 ; Dyspnea on exertion R06.09 ; Chronic obstructive pulmonary disease, unspecified COPD type J44.9 ; History of drug use Z87.898 and Tobacco use Z72.0 [facility] [id number] [place] [address] 20577- 4341 Jan, Uncomplicated opioid dependence F11.20 [facility] [address] [place] [address] Jan, Uncomplicated opioid dependence F11.20 [facility] [id number] [place] [address] 31022- 2904 Dec, Chronic obstructive pulmonary disease, unspecified COPD type J44.9 and Uncomplicated opioid dependence F11.20 [facility] [id number] [place] [address] 09987- 6974 Dec, Uncomplicated opioid dependence F11.20 [facility] [address] [place] [address] Dec, Uncomplicated opioid dependence F11.20 [facility] [id number] [place] [address] 61196- 5323 Dec, Uncomplicated opioid dependence F11.20 [facility] [address] [place] [address] Dec, Uncomplicated opioid dependence F11.20 [facility] [id number] [place] [address] 99453- 5115 Dec, [facility] [id number] [place] [address] 19066- 3487 Dec, Uncomplicated opioid dependence F11.20 [facility] [address] [place] [address] Dec, [facility] [address] [place] [address] Dec, Uncomplicated opioid dependence F11.20 [facility] [address] [place] [address] 34403- 1255 Dec, [facility] [id number] [place] [address] 56755- 3837 Dec, Uncomplicated opioid dependence F11.20 [facility] [id number] [place] [address] 31860- 5103 Dec, Uncomplicated opioid dependence F11.20 [facility] [id number] [place] [address] 48186- 8216 Dec, [facility] [address] [place] [address] Nov, Uncomplicated opioid dependence F11.20 [facility] [id number] [place] [address] 20615- 8046 Nov, Other cardiac arrhythmia I49.8 [facility] [address] [place] [address] Nov, Uncomplicated opioid dependence F11.20 and Marijuana abuse F12.10 [facility] [id number] [place] [address] 28862- 9307 Nov, Uncomplicated opioid dependence F11.20 and Bradycardia R00.1 [facility] [id number] [place] [address] 05816- 7111 Nov, [facility] [address] [place] [address] Nov, Uncomplicated opioid dependence F11.20 and Marijuana abuse F12.10 [facility] [address] [place] [address] October, Uncomplicated opioid dependence F11.20 and Marijuana abuse F12.10 [facility] [id number] [place] [address] 18841- 8476 October, Uncomplicated opioid dependence F11.20 [facility] [address] [place] [address] 12606- 3584 October, [facility] [address] [place] [address] October, Uncomplicated opioid dependence F11.20 [facility] [address] [place] [address] 98856- 8408 October, Uncomplicated opioid dependence F11.20 [facility] [id number] [place] [address] 38694- 2399 October, Opioid abuse F11.10 and Injection of illicit drug within last 12 months F19.90 [facility] [address] [place] [address] October, Uncomplicated opioid dependence F11.20 and Marijuana abuse F12.10 [facility] [id number] [place] [address] 70032- 4570 October, [facility] [address] [place] [address] October, Uncomplicated opioid dependence F11.20 and Marijuana abuse F12.10 [facility] [id number] [place] [address] 91475- 4796 Sep, Chronic obstructive pulmonary disease, unspecified COPD type J44.9 ; Cigarette nicotine dependence with other nicotine-induced disorder F17.218 and PAC (premature atrial contraction) I49.1 [facility] [address] [place] [address] Sep, Uncomplicated opioid dependence F11.20 and Marijuana abuse F12.10 [facility] [id number] [place] [address] 64552- 8224 Sep, [facility] [id number] [place] [address] 29403- 2747 Sep, [facility] [id number] [place] [address] 61999- 1977 Sep, [facility] [address] [place] [address] 61145- 0811 Jun, [facility] [id number] [place] [address] 74801- 9711 Jun, [facility] [address] [address] May, Chronic obstructive pulmonary disease, unspecified COPD type J44.9 [facility] [id number] [place] [address] 04776- 5799 May, Overflow incontinence of urine N39.490 [place] [address] [address] Apr, Bronchitis J40 ; Chronic obstructive pulmonary disease, unspecified COPD type J44.9 and Cigarette nicotine dependence with other nicotine-induced disorder F17.218 [place] [address] [address] Apr, [place] [address] 8[address]- 8824 Jan, Bronchitis J40 [place] [id number] [place] [address] 12118- 8373 Jan, Bronchitis J40 [facility] [place] [id number] [place] [address] 07745- 6704 Dec, Bronchitis J40 ; Low back pain M54.5 and Other chronic pain G89.29 [facility] [place] [id number] [place] [address] 27207- 6068 Sep, [facility] [place] [id number] [place] [address] 44834- 9298 Sep, [place] [id number] [place] [address] 04570- 4669 Nov, [place] [address] [address]- [address]47 Nov, IMMUNIZATIONS No Known Immunizations SOCIAL HISTORY Never Assessed REASON FOR VISIT Returned call PLAN OF CARE VITAL SIGNS MEDICATIONS Unknown [...]
--- OUTSIDE RECORDS SUMMARY | 2018-04-14 14:52 | XMS REPORT ---
Author Author CONOR GO Organization [facility] Address [address] [place] [address] Care Team Providers Care Primary Clinician Name Role Phone CONOR GO Unavailable PROBLEMS Type Condition ICD9-CM Code HWS95-RP Code Onset Dates Condition Status SNOMED Code Problem Low back pain M54.5 Active 373870880 Problem Cigarette nicotine dependence with other nicotine-induced disorder F17.218 Active 63076690 Problem Chronic obstructive pulmonary disease, unspecified COPD type J44.9 Active 85894472 Problem PVCs (premature ventricular contractions) I49.3 Active 43139222 Problem Other cardiac arrhythmia I49.8 Active 93854412 Problem Bradycardia R00.1 Active 32574341 Problem PAC (premature atrial contraction) I49.1 Active 967226993 Problem Uncomplicated opioid dependence F11.20 Active 64209827 Problem Marijuana abuse F12.10 Active 41259529 ALLERGIES No Information ENCOUNTERS Encounter Location Date Diagnosis [facility] [address] [address] Mar, [facility] [address] [place] [address] Feb, [facility] [id number] [place] [address] 96913- 2753 Jan, Uncomplicated opioid dependence F11.20 [facility] [address] [place] [address] Jan, [facility] [id number] [place] [address] 80895- 7746 Jan, Uncomplicated opioid dependence F11.20 [facility] [address] 63586- 2581 Jan, Uncomplicated opioid dependence F11.20 [facility] [address] [place] [address] Jan, Uncomplicated opioid dependence F11.20 [facility] [id number] [place] [address] 34557- 2000 Jan, Uncomplicated opioid dependence F11.20 [facility] [address] [place] [address] Jan, Uncomplicated opioid dependence F11.20 [facility] [id number] [place] [address] 93403- 8681 Jan, Abnormal EKG R94.31 ; PAC (premature atrial contraction) I49.1 ; PVCs (premature ventricular contractions) I49.3 ; Dyspnea on exertion R06.09 ; Chronic obstructive pulmonary disease, unspecified COPD type J44.9 ; History of drug use Z87.898 and Tobacco use Z72.0 [facility] [id number] [place] [address] 95756- 0238 Jan, Uncomplicated opioid dependence F11.20 [facility] [address] [place] [address] Jan, Uncomplicated opioid dependence F11.20 [facility] [id number] [place] [address] 91306- 6160 Dec, Chronic obstructive pulmonary disease, unspecified COPD type J44.9 and Uncomplicated opioid dependence F11.20 [facility] [id number] [place] [address] 64223- 1809 Dec, Uncomplicated opioid dependence F11.20 [facility] [address] [place] [address] Dec, Uncomplicated opioid dependence F11.20 [facility] [id number] [place] [address] 66248- 7162 Dec, Uncomplicated opioid dependence F11.20 [facility] [address] [place] [address] Dec, Uncomplicated opioid dependence F11.20 [facility] [id number] [place] [address] 64106- 1918 Dec, [facility] [id number] [place] [address] 67040- 7407 Dec, Uncomplicated opioid dependence F11.20 [facility] [address] [place] [address] Dec, [facility] [address] [place] [address] Dec, Uncomplicated opioid dependence F11.20 [facility] [address] [place] [address] 20884- 5805 Dec, [facility] [id number] [place] [address] 08720- 4852 Dec, Uncomplicated opioid dependence F11.20 [facility] [id number] [place] [address] 47981- 0157 Dec, Uncomplicated opioid dependence F11.20 [facility] [id number] [place] [address] 21272- 7517 Dec, [facility] [address] [place] [address] Nov, Uncomplicated opioid dependence F11.20 [facility] [id number] [place] [address] 93510- 1115 Nov, Other cardiac arrhythmia I49.8 [facility] [address] [place] [address] Nov, Uncomplicated opioid dependence F11.20 and Marijuana abuse F12.10 [facility] [id number] [place] [address] 43766- 0015 Nov, Uncomplicated opioid dependence F11.20 and Bradycardia R00.1 [facility] [id number] [place] [address] 85507- 5313 Nov, [facility] [address] [place] [address] Nov, Uncomplicated opioid dependence F11.20 and Marijuana abuse F12.10 [facility] [address] [place] [address] October, Uncomplicated opioid dependence F11.20 and Marijuana abuse F12.10 [facility] [id number] [place] [address] 15810- 4529 October, Uncomplicated opioid dependence F11.20 [facility] [address] [place] [address] 22447- 2747 October, [facility] [address] [place] [address] October, Uncomplicated opioid dependence F11.20 [facility] [address] [place] [address] 38700- 6974 October, Uncomplicated opioid dependence F11.20 [facility] [id number] [place] [address] 02262- 1960 October, Opioid abuse F11.10 and Injection of illicit drug within last 12 months F19.90 [facility] [address] [place] [address] October, Uncomplicated opioid dependence F11.20 and Marijuana abuse F12.10 [facility] [id number] [place] [address] 90443- 8119 October, [facility] [address] [place] [address] October, Uncomplicated opioid dependence F11.20 and Marijuana abuse F12.10 [facility] [id number] [place] [address] 43974- 9618 Sep, Chronic obstructive pulmonary disease, unspecified COPD type J44.9 ; Cigarette nicotine dependence with other nicotine-induced disorder F17.218 and PAC (premature atrial contraction) I49.1 [facility] [address] [place] [address] Sep, Uncomplicated opioid dependence F11.20 and Marijuana abuse F12.10 [facility] [id number] [place] [address] 60549- 8800 Sep, [facility] [id number] [place] [address] 86200- 0213 Sep, [facility] [id number] [place] [address] 07680- 1034 Sep, [facility] [address] [place] [address] 80214- 6254 Jun, [facility] [id number] [place] [address] 84521- 1080 Jun, [place] [id number] [place] [address] 08855- 4878 May, Chronic obstructive pulmonary disease, unspecified COPD type J44.9 [place] [id number] [place] [address] 99202- 0886 May, Overflow incontinence of urine N39.490 [place] [address] 72855- 7336 Apr, Bronchitis J40 ; Chronic obstructive pulmonary disease, unspecified COPD type J44.9 and Cigarette nicotine dependence with other nicotine-induced disorder F17.218 [place] [id number] [place] [address] 92833- 1650 Apr, [place] [id number] [place] [address] 93247- 6409 Jan, Bronchitis J40 [place] [id number] [place] [address] 65690- 4392 Jan, Bronchitis J40 [place] [id number] [place] [address] 80189- 5457 Dec, Bronchitis J40 ; Low back pain M54.5 and Other chronic pain G89.29 [place] [id number] [place] [address] 51323- 3020 Sep, [place] [id number] [place] [address] 77049- 8557 Sep, [place] [id number] [place] [address] 83236- 2883 Nov, [place] [address] 71457- 2095 Nov, IMMUNIZATIONS No Known Immunizations SOCIAL HISTORY Never Assessed REASON FOR VISIT Induction Day 2 PLAN OF CARE VITAL SIGNS MEDICATIONS Medication Instructions Dosage Frequency Start Date End Date Duration Status Suboxone 8-2 MG Sublingual Once a day 1 film under the tongue and allow to dissolve 24h Dec, 1 dose Active RESULTS No Results PROCEDURES No Known [...]
--- OUTSIDE RECORDS SUMMARY | 2018-04-14 14:53 | XMS REPORT ---
Author Author CONOR GO Organization [facility] Address [address] [place] [address] Care Team Providers Care Regional Driver Name Role Phone CONOR GO Unavailable PROBLEMS Type Condition ICD9-CM Code RZR50-SV Code Onset Dates Condition Status SNOMED Code Problem Low back pain M54.5 Active 099361817 Problem Cigarette nicotine dependence with other nicotine-induced disorder F17.218 Active 28135144 Problem Chronic obstructive pulmonary disease, unspecified COPD type J44.9 Active 67703603 Problem PVCs (premature ventricular contractions) I49.3 Active 48882625 Problem Other cardiac arrhythmia I49.8 Active 12097371 Problem Bradycardia R00.1 Active 07488331 Problem PAC (premature atrial contraction) I49.1 Active 327422434 Problem Uncomplicated opioid dependence F11.20 Active 47641376 Problem Marijuana abuse F12.10 Active 10247716 ALLERGIES No Known Allergies ENCOUNTERS Encounter Location Date Diagnosis [facility] [address] [address] Mar, [facility] [address] [place] [address] Jan, [facility] [id number] [place] [address] Jan, [facility] [address] [address] Jan, Uncomplicated opioid dependence F11.20 [facility] [address] [place] [address] Jan, Uncomplicated opioid dependence F11.20 [facility] [address] [address] Jan, Uncomplicated opioid dependence F11.20 [facility] [address] [place] [address] Jan, Uncomplicated opioid dependence F11.20 [facility] [id number] [place] [address] 61152[address] 0607 Jan, Abnormal EKG R94.31 ; PAC (premature atrial contraction) I49.1 ; PVCs (premature ventricular contractions) I49.3 ; Dyspnea on exertion R06.09 ; Chronic obstructive pulmonary disease, unspecified COPD type J44.9 ; History of drug use Z87.898 [address] Tobacco use [address]0 [facility] [address] [address] Jan, Uncomplicated opioid dependence F11.20 [facility] [address] [place] [address] Jan, Uncomplicated opioid dependence F11.20 [facility] [address] [address] Dec, Chronic obstructive pulmonary disease, unspecified COPD type J44.9 and Uncomplicated opioid dependence F11.20 [facility] [address] [address] Dec, Uncomplicated opioid dependence F11.20 [facility] [address] [place] [address] Dec, Uncomplicated opioid dependence F11.20 [facility] [id number] [place] [address]649 Dec, Uncomplicated opioid dependence F11.20 [facility] [address] [place] [address] Dec, Uncomplicated opioid dependence F11.20 [facility] [id number] [place] [address]0028[address]60 Dec, [facility] [address] [address] Dec, Uncomplicated opioid dependence F11.20 [facility] [id number] [place] [address] 25078- 9297 Dec, [facility] [address] [place] [address] Dec, Uncomplicated opioid dependence F11.20 [facility] [id number] [place] [address] 27293[address] Dec, [facility] [address] [address] Dec, Uncomplicated opioid dependence F11.20 [facility] [id number] [place] [address] 18273- 2464 Dec, Uncomplicated opioid dependence F11.20 [facility] [address] [address] Dec, [facility] [address] [place] [address] Nov, Uncomplicated opioid dependence F11.20 [facility] [id number] [place] [address] 72699- 0452 Nov, Other cardiac arrhythmia I49.8 [facility] [address] [place] [address] Nov, Uncomplicated opioid dependence F11.20 and Marijuana abuse F12.10 [facility] [id number] [place] [address] 27880- 9021 Nov, Uncomplicated opioid dependence F11.[address] [facility] [id number] [place] [address] 25993- 03[address] Nov, [facility] [address] [place] [address] Nov, Uncomplicated opioid dependence F11.20 and Marijuana abuse F12.10 [facility] [address] [place] [address] October, Uncomplicated opioid dependence F11.20 and Marijuana abuse F12.10 [facility] [id number] [place] [address] 15837- 6188 October, Uncomplicated opioid dependence F11.20 [facility] [id number] [place] [address] 49[address] 26[address] October, [facility] [address] [place] [address] October, Uncomplicated opioid dependence F11.20 [facility] [id number] [place] [address] 88603- 08[address] October, Uncomplicated opioid dependence F11.20 [facility] [address] [address] October, Opioid abuse F11.10 and Injection of illicit drug within last 12 months F19.90 [facility] [address] [place] [address] October, Uncomplicated opioid dependence F11.20 and Marijuana abuse F12.10 [facility] [id number] [place] [address] 8[address]- [address]85 October, [facility] [address] [place] [address] October, Uncomplicated opioid dependence F11.20 and Marijuana abuse F12.10 [facility] [id number] [place] [address] 54526- 7528 Sep, Chronic obstructive pulmonary disease, unspecified COPD type J44.9 ; Cigarette nicotine dependence with other nicotine-induced disorder F17.218 and PAC (premature atrial contraction) I49.1 [facility] [address] [place] [address] Sep, Uncomplicated opioid dependence F11.20 and Marijuana abuse F12.10 [facility] [id number] [place] [address] 02563[address] Sep, [facility] [id number] [place] [address] 53982[address]285 Sep, [facility] [id number] [place] [address] 82961- 9265 Sep, [facility] [id number] [place] [address] 64906[address] Jun, [facility] [address] [address] Jun, [facility] [id number] [place] [address] 97967- 97[address] May, Chronic obstructive pulmonary disease, unspecified COPD type J44.9 [facility] [id number] [place] [address] 9[address]39- 74[address] May, Overflow incontinence of urine N39.490 [place] [facility] [address] [address] Apr, Bronchitis J40 ; Chronic obstructive pulmonary disease, unspecified COPD type J44.9 and Cigarette nicotine dependence with other nicotine-induced disorder F17.218 [place] [address] [address] Apr, [place] [address] [address] Jan, Bronchitis J40 [place] [address] [address] Jan, Bronchitis J40 [place] [address] [address] Dec, Bronchitis J40 ; Low back pain M54.5 and Other chronic pain G89.29 [place] [address] [address] Sep, [place] [facility] [address] [address] Sep, [facility] [address] [address] Nov, [place] [address] [address] Nov, IMMUNIZATIONS No Known Immunizations SOCIAL HISTORY Never Assessed REASON FOR VISIT MAT Assessment, pt notes he has done fentanyl yesterday and something someone was mixing up; strictly uses opiates and by IV route PLAN OF CARE Activity Details Follow Up as scheduled Reason: Pending Test HEP C ANTIBODY (STATE) Pending Test HIV (STATE) Pending Test CMP Pending Test CBC VITAL SIGNS Height 68 in 2017-10-24 Weight 116.5 lbs 2017-10-24 Temperature 98.5 degrees Fahrenheit 2017-10-24 Heart Rate 67 bpm 2017-10-24 Respiratory Rate 14 2017-10-24 BMI 17.71 kg/m2 2017-10-24 Blood pressure systolic 112 mmHg 2017-10-24 Blood pressure diastolic 76 mmHg 2017-10-24 MEDICATIONS Medication Instructions Dosage Frequency Start Date End Date Duration Status Chantix Starting Month Noman 0.5 MG X 11 & 1 MG X 42 as directed Apr, Not-Taking ProAir HFA 108 (90 Base) MCG/ACT Inhalation every 4 hrs 2 puffs as needed 4h Jun, Active Advair Diskus 250-50 MCG/DOSE Inhalation Twice a day 1 puff 12h Jun, Not-Taking Ibuprofen 600 mg take 1 tablet (600 mg) by oral route every 6 hours as needed with food PRN Nov, Not-Taking RESULTS No Results PROCEDURES Procedure Date Ordered Result Body Site No Charge October 24, 2017 COMPLETE CBC W/AUTO DIFF WBC October 24, 2017 COMPREHEN METABOLIC PANEL October 24, 2017 INSTRUCTIONS MEDICATIONS ADMINISTERED No Known Medications MEDICAL (GENERAL) HISTORY Type Description Date Medical History Unspecified backache Medical History tips of 3rd and 4th digit on right hand cut off Hospitalization History had tips of 3rd and 4th digit on right hand cut off, got caught in [employer]
--- OUTSIDE RECORDS SUMMARY | 2018-04-14 14:53 | XMS REPORT ---
Author Author KULDIP DUONG [facility] Address [address] [place] [address] Care Team Providers Care Instruction Dean Name Role Phone KULDIP DUONG Unavailable PROBLEMS Type Condition ICD9-CM Code XKA30-PG Code Onset Dates Condition Status SNOMED Code Problem Low back pain M54.5 Active 169447927 Problem Cigarette nicotine dependence with other nicotine-induced disorder F17.218 Active 17216603 Problem Chronic obstructive pulmonary disease, unspecified COPD type J44.9 Active 57373398 Problem PVCs (premature ventricular contractions) I49.3 Active 27884570 Problem Other cardiac arrhythmia I49.8 Active 21325737 Problem Bradycardia R00.1 Active 22163412 Problem PAC (premature atrial contraction) I49.1 Active 328151050 Problem Uncomplicated opioid dependence F11.20 Active 11641047 Problem Marijuana abuse F12.10 Active 45980365 ALLERGIES No Known Allergies ENCOUNTERS Encounter Location Date Diagnosis [facility] [address] [address] Mar, [facility] [address] [place] [address] Jan, [facility] [address] [address] Jan, Uncomplicated opioid dependence F11.20 [facility] [id number] [place] [address] Jan, Uncomplicated opioid dependence F11.20 [facility] [address] [place] [address] Jan, Uncomplicated opioid dependence F11.20 [facility] [address] [address] Jan, Uncomplicated opioid dependence F11.20 [facility] [address] [place] [address] Jan, Uncomplicated opioid dependence F11.20 [facility] [id number] [place] [address] Jan, Abnormal EKG R94.31 ; PAC (premature atrial contraction) I49.1 ; PVCs (premature ventricular contractions) I49.3 ; Dyspnea on exertion R06.09 ; Chronic obstructive pulmonary disease, unspecified COPD type J44.9 ; History of drug use Z87.898 and Tobacco use Z72.0 [facility] [address] [address] Jan, Uncomplicated opioid dependence F11.20 [facility] [address] [place] [address] Jan, Uncomplicated opioid dependence F11.20 [facility] [address] [address] Dec, Chronic obstructive pulmonary disease, unspecified COPD type J44.9 and Uncomplicated opioid dependence F11.20 [facility] [address] [address] Dec, Uncomplicated opioid dependence F11.20 [facility] [address] [place] [address] Dec, Uncomplicated opioid dependence F11.20 [facility] [id number] [place] [address]- 8366 Dec, Uncomplicated opioid dependence F11.20 [facility] [address] [place] [address] Dec, Uncomplicated opioid dependence F11.20 [facility] [id number] [place] [address] 88890- [address]80 Dec, [facility] [address] [address] Dec, Uncomplicated opioid dependence F11.20 [facility] [id number] [place] [address]- [address] Dec, [facility] [address] [place] [address] Dec, Uncomplicated opioid dependence F11.20 [facility] [address] [place] [address]- [address] Dec, [facility] [id number] [place] [address] 09638- 8303 Dec, Uncomplicated opioid dependence F11.20 [facility] [id number] [place] [address] 60336- 0176 Dec, Uncomplicated opioid dependence F11.20 [facility] [id number] [place] [address] 49239- 4489 Dec, [facility] [address] [place] [address] Nov, Uncomplicated opioid dependence F11.20 [facility] [id number] [place] [address] 97489- 5165 Nov, Other cardiac arrhythmia I49.8 [facility] [address] [place] [address] Nov, Uncomplicated opioid dependence F11.20 and Marijuana abuse F12.10 [facility] [id number] [place] [address] 71388- 9736 Nov, Uncomplicated opioid dependence F11.20 and Bradycardia R00.1 [facility] [id number] [place] [address] 11303- 6176 Nov, [facility] [address] [place] [address] Nov, Uncomplicated opioid dependence F11.20 and Marijuana abuse F12.10 [facility] [address] [place] [address] October, Uncomplicated opioid dependence F11.20 and Marijuana abuse F12.10 [facility] [id number] [place] [address] 40387- 2774 October, Uncomplicated opioid dependence F11.20 [facility] [id number] [place] [address]150- 3[address] October, [facility] [address] [place] [address] October, Uncomplicated opioid dependence F11.20 [facility] [id number] [place] [address] 50123- 2155 October, Uncomplicated opioid dependence F11.20 [facility] [id number] [place] [address] 12835- 0085 October, Opioid abuse F11.10 and Injection of illicit drug within last 12 months F19.90 [facility] [address] [place] [address] October, Uncomplicated opioid dependence F11.20 and Marijuana abuse F12.10 [facility] [id number] [place] [address] 64973- 2219 October, [facility] [address] [place] [address] October, Uncomplicated opioid dependence F11.20 and Marijuana abuse F12.10 [facility] [id number] [place] [address] 85633- 0746 Sep, Chronic obstructive pulmonary disease, unspecified COPD type J44.9 ; Cigarette nicotine dependence with other nicotine-induced disorder F17.218 and PAC (premature atrial contraction) I49.1 [facility] [address] [place] [address] Sep, Uncomplicated opioid dependence F11.20 and Marijuana abuse F12.10 [facility] [id number] [place] [address] 71716- 1291 Sep, [facility] [id number] [place] [address] 68025- 3152 Sep, [facility] [id number] [place] [address] 17159- 9802 Sep, [facility] [id number] [place] [address] 71220- 5820 Jun, [facility] [id number] [place] [address] 48962- 9736 Jun, [facility] [id number] [place] [address] 63996- 6149 May, Chronic obstructive pulmonary disease, unspecified COPD type J44.9 [facility] [id number] [place] [address] 62581- 3067 May, Overflow incontinence of urine N39.490 [place] [facility] [address] [place] [address] 13943- 9892 Apr, Bronchitis J40 ; Chronic obstructive pulmonary disease, unspecified COPD type J44.9 and Cigarette nicotine dependence with other nicotine-induced disorder F17.218 [place] [address] [address] Apr, [place] [address] [address]- [address] Jan, Bronchitis J40 [place] [address] [address] Jan, Bronchitis J40 [place] [address] [address]- 6963 Dec, Bronchitis J40 ; Low back pain M54.5 and Other chronic pain G89.29 [facility] [facility] [id number] [place] [address] 50856- 5477 Sep, [facility] [facility] [id number] [place] [address] 88479- 4412 Sep, [facility] [id number] [place] [address] 88508- 9486 Nov, [place] [address] [address] Nov, IMMUNIZATIONS No Known Immunizations SOCIAL HISTORY Never Assessed REASON FOR VISIT Establish Care Jennifer, States Dr. Hutson said he has a heart problem and wanted you to see him. PLAN OF CARE Activity Details Follow Up prn Reason: VITAL SIGNS Height 68 in 2017-11-18 Weight 120.7 lbs 2017-11-18 Temperature 97.7 degrees Fahrenheit 2017-11-18 Heart Rate 72 bpm 2017-11-18 Respiratory Rate 18 2017-11-18 BMI 18.35 kg/m2 2017-11-18 Blood pressure systolic 116 mmHg 2017-11-18 Blood pressure diastolic 64 mmHg 2017-11-18 MEDICATIONS Medication Instructions Dosage Frequency Start Date End Date Duration Status ProAir HFA 108 (90 Base) MCG/ACT Inhalation every 4 hrs 2 puffs as needed 4h Jun, Active RESULTS No Results PROCEDURES No [...]
--- OUTSIDE RECORDS SUMMARY | 2018-04-14 14:53 | XMS REPORT ---
Author Author [facility] Address [address] [place] [address] Care Team Providers Care Log Buyer Name Role Phone SANTOSH HUNTER Unavailable PROBLEMS Type Condition ICD9-CM Code TXL22-NV Code Onset Dates Condition Status SNOMED Code Problem Low back pain M54.5 Active 811197594 Problem Cigarette nicotine dependence with other nicotine-induced disorder F17.218 Active 74368894 Problem Chronic obstructive pulmonary disease, unspecified COPD type J44.9 Active 39644828 Problem PVCs (premature ventricular contractions) I49.3 Active 90246556 Problem Other cardiac arrhythmia I49.8 Active 96014453 Problem Bradycardia R00.1 Active 27609694 Problem PAC (premature atrial contraction) I49.1 Active 431269794 Problem Uncomplicated opioid dependence F11.20 Active 43623512 Problem Marijuana abuse F12.10 Active 81907814 ALLERGIES No Information ENCOUNTERS Encounter Location Date Diagnosis [facility] [address] [address] Mar, [facility] [address] [place] [address] Feb, [facility] [id number] [place] [address] 44675- 1252 Jan, Uncomplicated opioid dependence F11.20 [facility] [address] [place] [address] Jan, [facility] [id number] [place] [address] 89913- 6695 Jan, Uncomplicated opioid dependence F11.20 [facility] [address] [address] Jan, Uncomplicated opioid dependence F11.20 [facility] [address] [place] [address] Jan, Uncomplicated opioid dependence F11.20 [facility] [id number] [place] [address] 96775- 7182 Jan, Uncomplicated opioid dependence F11.20 [facility] [address] [place] [address] Jan, Uncomplicated opioid dependence F11.20 [facility] [id number] [place] [address] 69705- 8012 Jan, Abnormal EKG R94.31 ; PAC (premature atrial contraction) I49.1 ; PVCs (premature ventricular contractions) I49.3 ; Dyspnea on exertion R06.09 ; Chronic obstructive pulmonary disease, unspecified COPD type J44.9 ; History of drug use Z87.898 and Tobacco use Z72.0 [facility] [id number] [place] [address] 28116- 7661 Jan, Uncomplicated opioid dependence F11.20 [facility] [address] [place] [address] Jan, Uncomplicated opioid dependence F11.20 [facility] [id number] [place] [address] 99708- 2458 Dec, Chronic obstructive pulmonary disease, unspecified COPD type J44.9 and Uncomplicated opioid dependence F11.20 [facility] [id number] [place] [address] 40463- 6307 Dec, Uncomplicated opioid dependence F11.20 [facility] [address] [place] [address] Dec, Uncomplicated opioid dependence F11.20 [facility] [id number] [place] [address] 18925- 3405 Dec, Uncomplicated opioid dependence F11.20 [facility] [address] [place] [address] Dec, Uncomplicated opioid dependence F11.20 [facility] [id number] [place] [address] 70233- 2993 Dec, [facility] [address] 86[address]- 7238 Dec, Uncomplicated opioid dependence F11.20 [facility] [id number] [place] [address] 52598- 5389 Dec, [facility] [address] [place] [address] Dec, Uncomplicated opioid dependence F11.20 [facility] [id number] [place] [address] 43005- 9859 Dec, [facility] [address] 280[address]- 5187 Dec, Uncomplicated opioid dependence F11.20 [facility] [id number] [place] [address] 86782- 3896 Dec, Uncomplicated opioid dependence F11.20 [facility] [id number] [place] [address] 60049- 6944 Dec, [facility] [address] [place] [address] Nov, Uncomplicated opioid dependence F11.20 [facility] [id number] [place] [address] 37695- 0204 Nov, Other cardiac arrhythmia I49.8 [facility] [address] [place] [address] Nov, Uncomplicated opioid dependence F11.20 and Marijuana abuse F12.10 [facility] [id number] [place] [address] 75936- 1834 Nov, Uncomplicated opioid dependence F11.20 and Bradycardia R00.1 [facility] [id number] [place] [address] 27895- 6015 Nov, [facility] [address] [place] [address] Nov, Uncomplicated opioid dependence F11.20 and Marijuana abuse F12.10 [facility] [address] [place] [address] October, Uncomplicated opioid dependence F11.20 and Marijuana abuse F12.10 [facility] [id number] [place] [address] 67134- 2052 October, Uncomplicated opioid dependence F11.20 [facility] [address] [address] October, [facility] [address] [place] [address] October, Uncomplicated opioid dependence F11.20 [facility] [id number] [place] [address] 27112- 4543 October, Uncomplicated opioid dependence F11.20 [facility] [id number] [place] [address] 12011- 7265 October, Opioid abuse F11.10 and Injection of illicit drug within last 12 months F19.90 [facility] [address] [place] [address] October, Uncomplicated opioid dependence F11.20 and Marijuana abuse F12.10 [facility] [id number] [place] [address] 87986- 3306 October, [facility] [address] [place] [address] October, Uncomplicated opioid dependence F11.20 and Marijuana abuse F12.10 [facility] [id number] [place] [address] 93648- 4567 Sep, Chronic obstructive pulmonary disease, unspecified COPD type J44.9 ; Cigarette nicotine dependence with other nicotine-induced disorder F17.218 and PAC (premature atrial contraction) I49.1 [facility] [address] [place] [address] Sep, Uncomplicated opioid dependence F11.20 and Marijuana abuse F12.10 [facility] [id number] [place] [address] 11096- 8158 Sep, [facility] [id number] [place] [address] 02680- 6439 Sep, [facility] [id number] [place] [address] 41769- 5515 Sep, [facility] [id number] [place] [address] 67334- 9756 Jun, [facility] [id number] [place] [address] 55476- 4782 Jun, [facility] [id number] [place] [address] 95261- 5836 May, Chronic obstructive pulmonary disease, unspecified COPD type J44.9 [facility] [id number] [place] [address] 91903- 0875 May, Overflow incontinence of urine N39.490 [facility] [id number] [place] [address] 73897- 6021 Apr, Bronchitis J40 ; Chronic obstructive pulmonary disease, unspecified COPD type J44.9 and Cigarette nicotine dependence with other nicotine-induced disorder F17.218 [facility] [id number] [place] [address] 54758- 8386 Apr, [facility] [id number] [place] [address] 30438- 7092 Jan, Bronchitis J40 [facility] [id number] [place] [address] 74111- 7143 Jan, Bronchitis J40 [facility] [id number] [place] [address] 23328- 8736 Dec, Bronchitis J40 ; Low back pain M54.5 and Other chronic pain G89.29 [facility] [id number] [place] [address] 44935- 9395 Sep, [facility] [id number] [place] [address] 67069- 0968 Sep, [facility] [id number] [place] [address] 44772- 3608 Nov, [facility] [id number] [place] [address] 29935- 7034 Nov, IMMUNIZATIONS No Known Immunizations SOCIAL HISTORY Never Assessed REASON FOR VISIT SUBAB f/u PLAN OF CARE Activity Details Follow Up 2 Weeks Reason:SUBABFU VITAL SIGNS MEDICATIONS Unknown Medications RESULTS No Results PROCEDURES Procedure Date Ordered Result Body Site Alcohol and/or drug services December 02, 2017 INSTRUCTIONS MEDICATIONS ADMINISTERED No Known Medications [...]
--- OUTSIDE RECORDS SUMMARY | 2018-04-14 14:53 | XMS REPORT ---
Author Author CONOR GO Organization [facility] Address [address] [place] [address] Care Team Providers Care Spin Tank Tender Name Role Phone CONOR GO Unavailable PROBLEMS Type Condition ICD9-CM Code UBZ05-QC Code Onset Dates Condition Status SNOMED Code Problem Low back pain M54.5 Active 394609426 Problem Cigarette nicotine dependence with other nicotine-induced disorder F17.218 Active 87436765 Problem Chronic obstructive pulmonary disease, unspecified COPD type J44.9 Active 26506680 Problem PVCs (premature ventricular contractions) I49.3 Active 54003946 Problem Other cardiac arrhythmia I49.8 Active 20300479 Problem Bradycardia R00.1 Active 20361849 Problem PAC (premature atrial contraction) I49.1 Active 378105207 Problem Uncomplicated opioid dependence F11.20 Active 49606158 Problem Marijuana abuse F12.10 Active 69658783 ALLERGIES No Information ENCOUNTERS Encounter Location Date Diagnosis [facility] [address] [address] Mar, [facility] [address] [place] [address] Jan, [facility] [id number] [place] [address] 56869- 8720 Jan, [facility] [address] 50333- 4015 Jan, Uncomplicated opioid dependence F11.20 [facility] [address] [place] [address] Jan, Uncomplicated opioid dependence F11.20 [facility] [address] 95893- 7781 Jan, Uncomplicated opioid dependence F11.20 [facility] [address] [place] [address] Jan, Uncomplicated opioid dependence F11.20 [facility] [id number] [place] [address] 42512- 1596 Jan, Abnormal EKG R94.31 ; PAC (premature atrial contraction) I49.1 ; PVCs (premature ventricular contractions) I49.3 ; Dyspnea on exertion R06.09 ; Chronic obstructive pulmonary disease, unspecified COPD type J44.9 ; History of drug use Z87.898 and Tobacco use Z72.0 [facility] [address] [address]- [address]86 Jan, Uncomplicated opioid dependence F11.20 [facility] [address] [place] [address] Jan, Uncomplicated opioid dependence F11.20 [facility] [address] 06502- 7974 Dec, Chronic obstructive pulmonary disease, unspecified COPD type J44.9 and Uncomplicated opioid dependence F11.20 [facility] [address] 05060- 68[address] Dec, Uncomplicated opioid dependence F11.20 [facility] [address] [place] [address] Dec, Uncomplicated opioid dependence F11.20 [facility] [address] 85567- 5807 Dec, Uncomplicated opioid dependence F11.20 [facility] [address] [place] [address] Dec, Uncomplicated opioid dependence F11.20 [facility] [id number] [place] [address] 74820- 8688 Dec, [facility] [address] 68073- 2336 Dec, Uncomplicated opioid dependence F11.20 [facility] [address] 68007- 9429 Dec, [facility] [address] [place] [address] Dec, Uncomplicated opioid dependence F11.20 [facility] [id number] [place] [address] 44023- 4128 Dec, [facility] [id number] [place] [address] 36075- 0453 Dec, Uncomplicated opioid dependence F11.20 [facility] [id number] [place] [address] 17021- 6098 Dec, Uncomplicated opioid dependence F11.20 [facility] [id number] [place] [address] 68422- 2031 Dec, [facility] [address] [place] [address] Nov, Uncomplicated opioid dependence F11.20 [facility] [id number] [place] [address] 76689- 1989 Nov, Other cardiac arrhythmia I49.8 [facility] [address] [place] [address] Nov, Uncomplicated opioid dependence F11.20 and Marijuana abuse F12.10 [facility] [id number] [place] [address] 73268- 7950 Nov, Uncomplicated opioid dependence F11.20 and Bradycardia R00.1 [facility] [id number] [place] [address] 62225- 5326 Nov, [facility] [address] [place] [address] Nov, Uncomplicated opioid dependence F11.20 and Marijuana abuse F12.10 [facility] [address] [place] [address] October, Uncomplicated opioid dependence F11.20 and Marijuana abuse F12.10 [facility] [id number] [place] [address] 49055- 8075 October, Uncomplicated opioid dependence F11.20 [facility] [id number] [place] [address] 71524- 9335 October, [facility] [address] [place] [address] October, Uncomplicated opioid dependence F11.20 [facility] [id number] [place] [address] 80000- 3578 October, Uncomplicated opioid dependence F11.20 [facility] [address] 52884- 7599 October, Opioid abuse F11.10 and Injection of illicit drug within last 12 months F19.90 [facility] [address] [place] [address] October, Uncomplicated opioid dependence F11.20 and Marijuana abuse F12.10 [facility] [address] 89261- 2339 October, [facility] [address] [place] [address] October, Uncomplicated opioid dependence F11.20 and Marijuana abuse F12.10 [facility] [address] 57558- 6794 Sep, Chronic obstructive pulmonary disease, unspecified COPD type J44.9 ; Cigarette nicotine dependence with other nicotine-induced disorder F17.218 and PAC (premature atrial contraction) I49.1 [facility] [address] [place] [address] Sep, Uncomplicated opioid dependence F11.20 and Marijuana abuse F12.10 [facility] [id number] [place] [address] 75657- 7468 Sep, [facility] [id number] [place] [address] 20975- 1894 Sep, [facility] [id number] [place] [address] 53972- 9052 Sep, [facility] [id number] [place] [address] 19990- 6855 Jun, [facility] [address] 52573- 3877 Jun, [facility] [id number] [place] [address] 27708- 2189 May, Chronic obstructive pulmonary disease, unspecified COPD type J44.9 [facility] [id number] [place] [address] 04450- 0283 May, Overflow incontinence of urine N39.490 [place] [address] 92348- 9237 Apr, Bronchitis J40 ; Chronic obstructive pulmonary disease, unspecified COPD type J44.9 and Cigarette nicotine dependence with other nicotine-induced disorder F17.218 [place] [address] 36607- 8023 Apr, [facility] [address] 39265- 9563 Jan, Bronchitis J40 [place] [address] 06958- 8911 Jan, Bronchitis J40 [place] [address] 74604- 0579 Dec, Bronchitis J40 ; Low back pain M54.5 and Other chronic pain G89.29 [place] [address] 9[address]- 4236 Sep, [place] [address] 17844- 3072 Sep, [place] [address] 36618- 2531 Nov, [place] [address] 46614- 6453 Nov, IMMUNIZATIONS No Known Immunizations SOCIAL HISTORY Never Assessed REASON FOR VISIT Induction Day 1 PLAN OF CARE Activity Details Follow Up 1 Week Reason:MAT Induction VITAL SIGNS MEDICATIONS Unknown Medications RESULTS Name Result Date Reference Range URINE DRUG SCREEN (IN HOUSE) 2017-10-26 Lot # [id number] Exp date 02/2019 Control + COCAINE neg AMPH neg MTD neg THC neg OPIATE neg BENZO + PCP neg BAR neg OXY neg MAMP neg BUP neg MDMA neg TCA n/a ETOH SALIVA 2017-10-26 Lot [id number] Exp. 03/05/2018 Result neg PROCEDURES Procedure Date Ordered Result Body Site DRUG TEST PRSMV DIR OPT OBS October 26, 2017 INSTRUCTIONS MEDICATIONS ADMINISTERED No Known Medications MEDICAL (GENERAL) HISTORY Type Description Date Medical History Unspecified backache Medical History tips of 3rd and 4th digit on right hand cut off Hospitalization History had tips of 3rd and 4th digit on right hand cut off, got caught in dog cable
--- OUTSIDE RECORDS SUMMARY | 2018-04-14 14:53 | XMS REPORT ---
Author Author CONOR GO Organization [facility] Address [address] [place] [address] Care Team Providers Care Coal Digger Name Role Phone CONOR GO Unavailable PROBLEMS Type Condition ICD9-CM Code RPX12-JM Code Onset Dates Condition Status SNOMED Code Problem Low back pain M54.5 Active 522776446 Problem Cigarette nicotine dependence with other nicotine-induced disorder F17.218 Active 86971322 Problem Chronic obstructive pulmonary disease, unspecified COPD type J44.9 Active 37386693 Problem PVCs (premature ventricular contractions) I49.3 Active 65418560 Problem Other cardiac arrhythmia I49.8 Active 37436670 Problem Bradycardia R00.1 Active 66879680 Problem PAC (premature atrial contraction) I49.1 Active 512861761 Problem Uncomplicated opioid dependence F11.20 Active 75360664 Problem Marijuana abuse F12.10 Active 96183970 ALLERGIES No Known Allergies ENCOUNTERS Encounter Location Date Diagnosis [facility] [address] [address] Mar, [facility] [address] [place] [address] Feb, [facility] [id number] [place] [address] Jan, Uncomplicated opioid dependence F11.20 [facility] [address] [place] [address] Jan, [facility] [id number] [place] [address]21[address] 46[address] Jan, Uncomplicated opioid dependence F11.20 [facility] [address] [address] Jan, Uncomplicated opioid dependence F11.20 [facility] [address] [place] [address] Jan, Uncomplicated opioid dependence F11.20 [facility] [id number] [place] [address] 16674- 6623 Jan, Uncomplicated opioid dependence F11.20 [facility] [address] [place] [address] Jan, Uncomplicated opioid dependence F11.20 [facility] [id number] [place] [address]31- 5502 Jan, Abnormal EKG R94.31 ; PAC (premature atrial contraction) I49.1 ; PVCs (premature ventricular contractions) I49.3 ; Dyspnea on exertion R06.09 ; Chronic obstructive pulmonary disease, unspecified COPD type J44.9 ; History of drug use Z87.898 and Tobacco use Z72.0 [facility] [id number] [place] [address]291[address] 35[address] Jan, Uncomplicated opioid dependence F11.20 [facility] [address] [place] [address] Jan, Uncomplicated opioid dependence F11.20 [facility] [id number] [place] [address] 63310- 4501 Dec, Chronic obstructive pulmonary disease, unspecified COPD type J44.9 and Uncomplicated opioid dependence F11.20 [facility] [id number] [place] [address] 79019[address] 2539 Dec, Uncomplicated opioid dependence F11.20 [facility] [address] [place] [address] Dec, Uncomplicated opioid dependence F11.20 [facility] [id number] [place] [address] 05448- 4465 Dec, Uncomplicated opioid dependence F11.20 [facility] [address] [place] [address] Dec, Uncomplicated opioid dependence F11.20 [facility] [id number] [place] [address] 31677- 9531 Dec, [facility] [id number] [place] [address] 69126- 4495 Dec, Uncomplicated opioid dependence F11.20 [facility] [address] [address] Dec, [facility] [address] [place] [address] Dec, Uncomplicated opioid dependence F11.20 [facility] [address] [place] [address] 66693- 2269 Dec, [facility] [id number] [place] [address] 74119- 8813 Dec, Uncomplicated opioid dependence F11.20 [facility] [id number] [place] [address] 78394- 2901 Dec, Uncomplicated opioid dependence F11.20 [facility] [id number] [place] [address] 01206- 6799 Dec, [facility] [address] [place] [address] Nov, Uncomplicated opioid dependence F11.20 [facility] [id number] [place] [address] 36480- 9303 Nov, Other cardiac arrhythmia I49.8 [facility] [address] [place] [address] Nov, Uncomplicated opioid dependence F11.20 and Marijuana abuse F12.10 [facility] [address] [place] [address] 42190- 7034 Nov, Uncomplicated opioid dependence F11.20 and Bradycardia R00.1 [facility] [id number] [place] [address] 31167- 6190 Nov, [facility] [address] [place] [address] Nov, Uncomplicated opioid dependence F11.20 and Marijuana abuse F12.10 [facility] [address] [place] [address] October, Uncomplicated opioid dependence F11.20 and Marijuana abuse F12.10 [facility] [address] [place] [address] 45911- 5700 October, Uncomplicated opioid dependence F11.20 [facility] [id number] [place] [address] 96312- 1245 October, [facility] [address] [place] [address] October, Uncomplicated opioid dependence F11.20 [facility] [id number] [place] [address] 91295- 6114 October, Uncomplicated opioid dependence F11.20 [facility] [id number] [place] [address] 68401- 5334 October, Opioid abuse F11.10 and Injection of illicit drug within last 12 months F19.90 [facility] [address] [place] [address] October, Uncomplicated opioid dependence F11.20 and Marijuana abuse F12.10 [facility] [id number] [place] [address] 38390- 1165 October, [facility] [address] [place] [address] October, Uncomplicated opioid dependence F11.20 and Marijuana abuse F12.10 [facility] [id number] [place] [address] 04680- 6814 Sep, Chronic obstructive pulmonary disease, unspecified COPD type J44.9 ; Cigarette nicotine dependence with other nicotine-induced disorder F17.218 and PAC (premature atrial contraction) I49.1 [facility] [address] [place] [address] Sep, Uncomplicated opioid dependence F11.20 and Marijuana abuse F12.10 [facility] [id number] [place] [address] 66247- 6753 Sep, [facility] [id number] [place] [address] 86207- 1805 Sep, [facility] [id number] [place] [address] 11559- 0120 Sep, [facility] [id number] [place] [address] 59337- 3559 Jun, [facility] [id number] [place] [address] 34010- 5747 Jun, [place] [address] [address] May, Chronic obstructive pulmonary disease, unspecified COPD type J44.9 [place] [address] [place] [address] 43415- 8730 May, Overflow incontinence of urine N39.490 [place] [address] [address] Apr, Bronchitis J40 ; Chronic obstructive pulmonary disease, unspecified COPD type J44.9 and Cigarette nicotine dependence with other nicotine-induced disorder F17.218 [place] [address] [place] [address] 67306- 9461 Apr, [place] [address] [address] Jan, Bronchitis J40 [place] [address] [place] [address] 74832- 1699 Jan, Bronchitis J40 [place] [address] [place] [address] 12106- 4682 Dec, Bronchitis J40 ; Low back pain M54.5 and Other chronic pain G89.29 [place] [address] [place] [address] 57806- 7737 Sep, [place] [address] [place] [address] 22910- 3489 Sep, [place] [address] [place] [address] 79797- 6426 Nov, [place] [address] [address]- [address] Nov, IMMUNIZATIONS No Known Immunizations SOCIAL HISTORY Never Assessed REASON FOR VISIT MAT F/U, pt not taking naltrexone; took 25mg for 4 days and it made him feel clammy so he quit taking it, pt last used on 11/11, took 60mg morphine by injection PLAN OF CARE Activity Details Follow Up with PCP and Jeannie for counseling Reason: VITAL SIGNS Height 68 in 2017-11-16 Weight 120.3 lbs 2017-11-16 Heart Rate 54 bpm 2017-11-16 Respiratory Rate 14 2017-11-16 BMI 18.29 kg/m2 2017-11-16 Blood pressure systolic 128 mmHg 2017-11-16 Blood pressure diastolic 70 mmHg 2017-11-16 MEDICATIONS Medication Instructions Dosage Frequency Start Date End Date Duration Status Ibuprofen 600 mg take 1 tablet (600 mg) by oral route every 6 hours as needed with food PRN Nov, Not-Taking Naltrexone HCl 50 mg Orally Once a day. Take 0.5 tablet daily x7 days then 1 tablet October, Nov, 30 day(s) Not-Taking Advair Diskus 250-50 MCG/DOSE Inhalation Twice a day 1 puff 12h Jun, Not-Taking Chantix Starting Month Noman 0.5 MG X 11 & 1 MG X 42 as directed Apr, Not-Taking ProAir HFA 108 (90 Base) MCG/ACT Inhalation every 4 hrs 2 puffs as needed 4h Jun, Active RESULTS No Results PROCEDURES Procedure Date Ordered Result Body Site EKG, TRACING (IN-HOUSE) 2017-11-16 N/A ELECTROCARDIOGRAM, TRACING November 16, 2017 INSTRUCTIONS MEDICATIONS ADMINISTERED No Known Medications MEDICAL (GENERAL) HISTORY Type Description Date Medical History Unspecified backache Medical History tips of 3rd and 4th digit on right hand cut off Medical History PACs/PVCs/Bradycardia Medical History opioid use disorder Hospitalization History had tips of 3rd and 4th digit on right hand cut off, got caught in [employer]
--- OUTSIDE RECORDS SUMMARY | 2018-04-14 14:54 | XMS REPORT ---
Author Author ELSA SANTOSH [facility] Address [address] [place] [address] Care Team Providers Care Customer Support Executive Name Role Phone SANTOSH HUNTER Unavailable PROBLEMS Type Condition ICD9-CM Code BPH04-OL Code Onset Dates Condition Status SNOMED Code Problem Low back pain M54.5 Active 478584598 Problem Cigarette nicotine dependence with other nicotine-induced disorder F17.218 Active 92912605 Problem Chronic obstructive pulmonary disease, unspecified COPD type J44.9 Active 48258984 Problem PVCs (premature ventricular contractions) I49.3 Active 87433606 Problem Other cardiac arrhythmia I49.8 Active 47524946 Problem Bradycardia R00.1 Active 21489377 Problem PAC (premature atrial contraction) I49.1 Active 004683808 Problem Uncomplicated opioid dependence F11.20 Active 92734933 Problem Marijuana abuse F12.10 Active 17448984 ALLERGIES No Information ENCOUNTERS Encounter Location Date Diagnosis [facility] [address] [address] Mar, [facility] [address] [place] [address] Jan, [facility] [id number] [place] [address] 12762- [address]26 Jan, [facility] [address] [address] Jan, Uncomplicated opioid dependence F11.20 [facility] [address] [place] [address] Jan, Uncomplicated opioid dependence F11.20 [facility] [address] [address] Jan, Uncomplicated opioid dependence F11.20 [facility] [address] [place] [address] Jan, [facility] [id number] [place] [address] 66377- 1751 Jan, Abnormal EKG R94.31 ; PAC (premature atrial contraction) I49.1 ; PVCs (premature ventricular contractions) I49.3 ; Dyspnea on exertion R06.09 ; Chronic obstructive pulmonary disease, unspecified COPD type J44.9 ; History of drug use Z87.898 and Tobacco use Z72.0 [facility] [address] [address] Jan, Uncomplicated opioid dependence F11.20 [facility] [address] [place] [address] Jan, Uncomplicated opioid dependence F11.20 [facility] [address] [address] Dec, Chronic obstructive pulmonary disease, unspecified COPD type J44.9 and Uncomplicated opioid dependence F11.20 [facility] [address] [address] Dec, Uncomplicated opioid dependence F11.20 [facility] [address] [place] [address] Dec, Uncomplicated opioid dependence F11.20 [facility] [address] [address]- [address] Dec, Uncomplicated opioid dependence F11.20 [facility] [address] [place] [address] Dec, Uncomplicated opioid dependence F11.20 [facility] [id number] [place] [address] 80797- 5762 Dec, [facility] [address] [address]- [address] Dec, Uncomplicated opioid dependence F11.20 [facility] [id number] [place] [address] 82734- 8257 Dec, [facility] [address] [place] [address] Dec, Uncomplicated opioid dependence F11.20 [facility] [address] [place] [address] Dec, [facility] [id number] [place] [address] 65490- 3484 Dec, Uncomplicated opioid dependence F11.20 [facility] [id number] [place] [address] 33906- 5154 Dec, Uncomplicated opioid dependence F11.20 [facility] [address] 38[address]- 3247 Dec, [facility] [address] [place] [address] Nov, Uncomplicated opioid dependence F11.20 [facility] [address] 736[address]- 7630 Nov, Other cardiac arrhythmia I49.8 [facility] [address] [place] [address] Nov, Uncomplicated opioid dependence F11.20 and Marijuana abuse F12.10 [facility] [address] 29277- 7924 Nov, Uncomplicated opioid dependence F11.20 and Bradycardia R00.1 [facility] [address] [address]- [address] Nov, [facility] [address] [place] [address] 07 Nov, 2017 Uncomplicated opioid dependence F11.20 and Marijuana abuse F12.10 [facility] [address] [place] [address] October, Uncomplicated opioid dependence F11.20 and Marijuana abuse F12.10 [facility] [id number] [place] [address] 17654- 8087 October, Uncomplicated opioid dependence F11.20 [facility] [address] [address]- [address] October, [facility] [address] [place] [address] October, Uncomplicated opioid dependence F11.20 [facility] [address] [place] [address] October, Uncomplicated opioid dependence F11.20 [facility] [address] [address] October, Opioid abuse F11.10 and Injection of illicit drug within last 12 months F19.90 [facility] [address] [place] [address] October, Uncomplicated opioid dependence F11.20 and Marijuana abuse F12.10 [facility] [address] [address]- [address] October, [facility] [address] [place] [address] October, Uncomplicated opioid dependence F11.20 and Marijuana abuse F12.10 [facility] [id number] [place] [address] 14492- 7864 Sep, Chronic obstructive pulmonary disease, unspecified COPD type J44.9 ; Cigarette nicotine dependence with other nicotine-induced disorder F17.218 and PAC (premature atrial contraction) I49.1 [facility] [address] [place] [address] Sep, Uncomplicated opioid dependence F11.20 and Marijuana abuse F12.10 [facility] [id number] [place] [address] 76896- 2162 Sep, [facility] [id number] [place] [address] 71031- 3578 Sep, [facility] [id number] [place] [address] 54483- 6644 Sep, [facility] [id number] [place] [address] 27774- 6945 Jun, [facility] [address] [address]- [address] Jun, [facility] [id number] [place] [address] 86967- 4065 May, Chronic obstructive pulmonary disease, unspecified COPD type J44.9 [facility] [id number] [place] [address] 67324- 5487 May, Overflow incontinence of urine N39.490 [place] [address] [address] Apr, Bronchitis J40 ; Chronic obstructive pulmonary disease, unspecified COPD type J44.9 and Cigarette nicotine dependence with other nicotine-induced disorder F17.218 [place] [address] [address]- [address] Apr, [place] [address] [address]- [address] Jan, Bronchitis J40 [place] [address] 27870- 8147 Jan, Bronchitis J40 [place] [address] 51158- 5226 Dec, Bronchitis J40 ; Low back pain M54.5 and Other chronic pain G89.29 [place] [id number] [place] [address] 78320- 5353 Sep, [place] [address] 71867- 3747 Sep, [place] [id number] [place] [address] 19451- 4714 Nov, [place] [address] [address]- [address] Nov, IMMUNIZATIONS No Known Immunizations SOCIAL HISTORY Never Assessed REASON FOR VISIT SUBAB f/u PLAN OF CARE Activity Details Follow Up 1 Week Reason:SUBABFU VITAL SIGNS MEDICATIONS Unknown Medications RESULTS No Results PROCEDURES Procedure Date Ordered Result Body Site Alcohol and/or drug services November 10, 2017 INSTRUCTIONS MEDICATIONS ADMINISTERED No Known Medications MEDICAL (GENERAL) HISTORY Type Description Date Medical History Unspecified backache Medical History tips of 3rd and 4th digit on right hand cut off Hospitalization History had tips of 3rd and 4th digit on right hand cut off, got caught in [employer]
--- OUTSIDE RECORDS SUMMARY | 2018-04-14 14:54 | XMS REPORT ---
Author Author ELSA [facility] Address [address] [place] [address] Care Team Providers Care Agency Director Name Role Phone SANTOSH HUNTER Unavailable PROBLEMS Type Condition ICD9-CM Code XXR36-TH Code Onset Dates Condition Status SNOMED Code Problem Low back pain M54.5 Active 130806414 Problem Cigarette nicotine dependence with other nicotine-induced disorder F17.218 Active 75074539 Problem Chronic obstructive pulmonary disease, unspecified COPD type J44.9 Active 26320104 Problem PVCs (premature ventricular contractions) I49.3 Active 70478596 Problem Other cardiac arrhythmia I49.8 Active 17152375 Problem Bradycardia R00.1 Active 01501872 Problem PAC (premature atrial contraction) I49.1 Active 036659063 Problem Uncomplicated opioid dependence F11.20 Active 98065326 Problem Marijuana abuse F12.10 Active [id number] ALLERGIES No Information ENCOUNTERS Encounter Location Date Diagnosis [facility] [address] [address] Mar, [facility] [address] [place] [address] Jan, [facility] [id number] [place] [address] Jan, [facility] [address] [address] Jan, Uncomplicated opioid dependence F11.20 [facility] [address] [place] [address] Jan, Uncomplicated opioid dependence F11.20 [facility] [address] [address] Jan, Uncomplicated opioid dependence F11.20 [facility] [address] [place] [address] Jan, [facility] [id number] [place] [address] Jan, Abnormal EKG R94.31 ; PAC (premature atrial contraction) I49.1 ; PVCs (premature ventricular contractions) I49.3 ; Dyspnea on exertion R06.09 ; Chronic obstructive pulmonary disease, unspecified COPD type J44.9 ; History of drug use Z87.898 and Tobacco use Z72.0 [facility] [address] [address] Jan, Uncomplicated opioid dependence F11.20 [facility] [address] [place] [address] Jan, Uncomplicated opioid dependence F11.20 [facility] [address] [address] Dec, Chronic obstructive pulmonary disease, unspecified COPD type J44.9 and Uncomplicated opioid dependence F11.20 [facility] [address] [address] Dec, Uncomplicated opioid dependence F11.20 [facility] [address] [place] [address] Dec, Uncomplicated opioid dependence F11.20 [facility] [address] [address] Dec, Uncomplicated opioid dependence F11.20 [facility] [address] [place] [address] Dec, Uncomplicated opioid dependence F11.20 [facility] [id number] [place] [address] Dec, [facility] [address] [address] Dec, Uncomplicated opioid dependence F11.20 [facility] [id number] [place] [address] Dec, [facility] [address] [place] [address] Dec, Uncomplicated opioid dependence F11.20 [facility] [address] [place] [address] Dec, [facility] [id number] [place] [address] 7[address] Dec, Uncomplicated opioid dependence F11.20 [facility] [id number] [place] [address]407[address] 7799 Dec, Uncomplicated opioid dependence F11.20 [facility] [address] [address] Dec, [facility] [address] [place] [address] Nov, Uncomplicated opioid dependence F11.20 [facility] [address] [address] Nov, Other cardiac arrhythmia I49.8 [facility] [address] [place] [address] Nov, Uncomplicated opioid dependence F11.20 and Marijuana abuse F12.10 [facility] [address] [address] Nov, Uncomplicated opioid dependence F11.20 and Bradycardia R00.1 [facility] [address] [address] Nov, [facility] [address] [place] [address] 07 Nov, 2017 Uncomplicated opioid dependence F11.20 and Marijuana abuse F12.10 [facility] [address] [place] [address] October, Uncomplicated opioid dependence F11.20 and Marijuana abuse F12.10 [facility] [id number] [place] [address]- 277[address] October, Uncomplicated opioid dependence F11.20 [facility] [address] [address] October, [facility] [address] [place] [address] October, Uncomplicated opioid dependence F11.20 [facility] [address] [place] [address] October, Uncomplicated opioid dependence F11.20 [facility] [address] [address] October, Opioid abuse F11.10 and Injection of illicit drug within last 12 months F19.90 [facility] [address] [place] [address] October, Uncomplicated opioid dependence F11.20 and Marijuana abuse F12.10 [facility] [address] [address] October, [facility] [address] [place] [address] October, Uncomplicated opioid dependence F11.20 and Marijuana abuse F12.10 [facility] [id number] [place] [address] 18[address]- [address] Sep, Chronic obstructive pulmonary disease, unspecified COPD type J44.9 ; Cigarette nicotine dependence with other nicotine-induced disorder F17.218 and PAC (premature atrial contraction) I49.1 [facility] [address] [place] [address] Sep, Uncomplicated opioid dependence F11.20 and Marijuana abuse F12.10 [facility] [id number] [place] [address] 45[address]- 9357 Sep, [facility] [id number] [place] [address] 46[address]- 16[address] Sep, [facility] [id number] [place] [address] 54680[address] 5647 Sep, [facility] [id number] [place] [address] 09053- 3155 Jun, [facility] [address] [address] Jun, [facility] [id number] [place] [address] 12944- 62[address] May, Chronic obstructive pulmonary disease, unspecified COPD type J44.9 [facility] [id number] [place] [address] 7489 May, Overflow incontinence of urine N39.490 [place] [address] [address] Apr, Bronchitis J40 ; Chronic obstructive pulmonary disease, unspecified COPD type J44.9 and Cigarette nicotine dependence with other nicotine-induced disorder F17.218 [place] [address] [address] Apr, [place] [address] 8[address] Jan, Bronchitis J40 [place] [address] [address] Jan, Bronchitis J40 [place] [address] [address]- [address]4 Dec, Bronchitis J40 ; Low back pain M54.5 and Other chronic pain G89.29 [place] [id number] [place] [address]143- 6[address] Sep, [place] [address] [address] Sep, [place] [id number] [place] [address]247[address] Nov, [place] [address] [address]- [address] Nov, IMMUNIZATIONS No Known Immunizations SOCIAL HISTORY Never Assessed REASON FOR VISIT SUBAB F/U PLAN OF CARE Activity Details Follow Up 1 Week Reason:SUBABFU VITAL SIGNS MEDICATIONS Unknown Medications RESULTS No Results PROCEDURES Procedure Date Ordered Result Body Site Alcohol and/or drug services November 03, 2017 INSTRUCTIONS MEDICATIONS ADMINISTERED No Known Medications MEDICAL (GENERAL) HISTORY Type Description Date Medical History Unspecified backache Medical History tips of 3rd and 4th digit on right hand cut off Hospitalization History had tips of 3rd and 4th digit on right hand cut off, got caught in dog cable
--- OUTSIDE RECORDS SUMMARY | 2018-04-14 14:54 | XMS REPORT ---
Author Author [facility] Address [address] [place] [address] Care Team Providers Care Gerentological Physiotherapist Name Role Phone SANTOSH HUNTER Unavailable PROBLEMS Type Condition ICD9-CM Code JXY88-DF Code Onset Dates Condition Status SNOMED Code Problem Low back pain M54.5 Active 949194672 Problem Cigarette nicotine dependence with other nicotine-induced disorder F17.218 Active 07414137 Problem Chronic obstructive pulmonary disease, unspecified COPD type J44.9 Active 41061125 Problem PVCs (premature ventricular contractions) I49.3 Active 11304623 Problem Other cardiac arrhythmia I49.8 Active 12330926 Problem Bradycardia R00.1 Active 62480936 Problem PAC (premature atrial contraction) I49.1 Active 565701418 Problem Uncomplicated opioid dependence F11.20 Active 64787713 Problem Marijuana abuse F12.10 Active 87860363 ALLERGIES No Information ENCOUNTERS Encounter Location Date Diagnosis [facility] [address] [address] Mar, [facility] [address] [place] [address] Jan, [facility] [id number] [place] [address]- [address] Jan, [facility] [address] [address] Jan, Uncomplicated opioid dependence F11.20 [facility] [address] [place] [address] Jan, Uncomplicated opioid dependence F11.20 [facility] [address] [address] Jan, Uncomplicated opioid dependence F11.20 [facility] [address] [place] [address] Jan, Uncomplicated opioid dependence F11.20 [facility] [id number] [place] [address] 63918- 8855 Jan, Abnormal EKG R94.31 ; PAC (premature atrial contraction) I49.1 ; PVCs (premature ventricular contractions) I49.3 ; Dyspnea on exertion R06.09 ; Chronic obstructive pulmonary disease, unspecified COPD type J44.9 ; History of drug use Z87.898 and Tobacco use Z72.0 [facility] [address] [address] Jan, Uncomplicated opioid dependence F11.20 [facility] [address] [place] [address] Jan, Uncomplicated opioid dependence F11.20 [facility] [address] [address]- [address] Dec, Chronic obstructive pulmonary disease, unspecified COPD type J44.9 and Uncomplicated opioid dependence F11.20 [facility] [address] 8[address]- [address]342 Dec, Uncomplicated opioid dependence F11.20 [facility] [address] [place] [address] Dec, Uncomplicated opioid dependence F11.20 [facility] [address] [address]- [address] Dec, Uncomplicated opioid dependence F11.20 [facility] [address] [place] [address] Dec, Uncomplicated opioid dependence F11.20 [facility] [id number] [place] [address] 14687- 7899 Dec, [facility] [address] 16083- [address] Dec, Uncomplicated opioid dependence F11.20 [facility] [address] 12513- [address] Dec, [facility] [address] [place] [address] Dec, Uncomplicated opioid dependence F11.20 [facility] [id number] [place] [address] 68055- 8650 Dec, [facility] [id number] [place] [address] 54644- 1215 Dec, Uncomplicated opioid dependence F11.20 [facility] [id number] [place] [address] 46089- 7535 Dec, Uncomplicated opioid dependence F11.20 [facility] [address] [address]- [address] Dec, [facility] [address] [place] [address] Nov, Uncomplicated opioid dependence F11.20 [facility] [address] [address]- 489[address] Nov, Other cardiac arrhythmia I49.8 [facility] [address] [place] [address] Nov, Uncomplicated opioid dependence F11.20 and Marijuana abuse F12.10 [facility] [id number] [place] [address] 65322- 0193 Nov, Uncomplicated opioid dependence F11.20 and Bradycardia R00.1 [facility] [id number] [place] [address] 76666- 3443 Nov, [facility] [address] [place] [address] Nov, Uncomplicated opioid dependence F11.20 and Marijuana abuse F12.10 [facility] [address] [place] [address] October, Uncomplicated opioid dependence F11.20 and Marijuana abuse F12.10 [facility] [id number] [place] [address] 04205- 6309 October, Uncomplicated opioid dependence F11.20 [facility] [id number] [place] [address] 60722- 2114 October, [facility] [address] [place] [address] October, Uncomplicated opioid dependence F11.20 [facility] [id number] [place] [address] 84944- 9383 October, Uncomplicated opioid dependence F11.20 [facility] [id number] [place] [address] 92864- 8226 October, Opioid abuse F11.10 and Injection of illicit drug within last 12 months F19.90 [facility] [address] [place] [address] October, Uncomplicated opioid dependence F11.20 and Marijuana abuse F12.10 [facility] [id number] [place] [address] 73772- 5673 October, [facility] [address] [place] [address] October, Uncomplicated opioid dependence F11.20 and Marijuana abuse F12.10 [facility] [id number] [place] [address] 83520- 7787 Sep, Chronic obstructive pulmonary disease, unspecified COPD type J44.9 ; Cigarette nicotine dependence with other nicotine-induced disorder F17.218 and PAC (premature atrial contraction) I49.1 [facility] [address] [place] [address] Sep, Uncomplicated opioid dependence F11.20 and Marijuana abuse F12.10 [facility] [id number] [place] [address] 81575- 6065 Sep, [facility] [id number] [place] [address] 83560- 3835 Sep, [facility] [id number] [place] [address] 33721- 8024 Sep, [facility] [id number] [place] [address] 08556- 3268 Jun, [facility] [id number] [place] [address] 45773- 6439 Jun, [facility] [id number] [place] [address] 37631- 0829 May, Chronic obstructive pulmonary disease, unspecified COPD type J44.9 [place] [id number] [place] [address] 00927- 2671 May, Overflow incontinence of urine N39.490 [place] [address] [address]- [address]45 Apr, Bronchitis J40 ; Chronic obstructive pulmonary disease, unspecified COPD type J44.9 and Cigarette nicotine dependence with other nicotine-induced disorder F17.218 [place] [address] [address]- 9139 Apr, [place] [address] 13663- 2823 Jan, Bronchitis J40 [place] [address] [address]18- 2647 Jan, Bronchitis J40 [place] [address] 97419- 4397 Dec, Bronchitis J40 ; Low back pain M54.5 and Other chronic pain G89.29 [place] [address] 728[address]- 6972 Sep, [place] [address] 90528- 5359 Sep, [place] [address] [address]957- [address]88 Nov, [place] [address] 67[address]- 6944 Nov, IMMUNIZATIONS No Known Immunizations SOCIAL HISTORY Never Assessed REASON FOR VISIT SUBAB-FU PLAN OF CARE Activity Details Follow Up 1 Week Reason:SUBABFU Pending Test URINE DRUG SCREEN (IN HOUSE) VITAL SIGNS MEDICATIONS Unknown Medications RESULTS No Results PROCEDURES Procedure Date Ordered Result Body Site Alcohol and/or drug services November 18, 2017 DRUG TEST PRSMV DIR OPT OBS November 18, 2017 INSTRUCTIONS MEDICATIONS ADMINISTERED No Known Medications MEDICAL (GENERAL) HISTORY Type Description Date Medical History Unspecified backache Medical History tips of 3rd and 4th digit on right hand cut off Hospitalization History had tips of 3rd and 4th digit on right hand cut off, got caught in dog cable
--- OUTSIDE RECORDS SUMMARY | 2018-04-14 14:54 | XMS REPORT ---
Author Author CONOR GO Organization [facility] Address [address] [place] [address] Care Team Providers Care Logistics Clerk Name Role Phone CONOR GO Unavailable PROBLEMS Type Condition ICD9-CM Code PWB42-HZ Code Onset Dates Condition Status SNOMED Code Problem Low back pain M54.5 Active 594748590 Problem Cigarette nicotine dependence with other nicotine-induced disorder F17.218 Active 96610604 Problem Chronic obstructive pulmonary disease, unspecified COPD type J44.9 Active 24431808 Problem PVCs (premature ventricular contractions) I49.3 Active 88979258 Problem Other cardiac arrhythmia I49.8 Active 01839461 Problem Bradycardia R00.1 Active 88266666 Problem PAC (premature atrial contraction) I49.1 Active 844179482 Problem Uncomplicated opioid dependence F11.20 Active 90884973 Problem Marijuana abuse F12.10 Active 08966908 ALLERGIES No Information ENCOUNTERS Encounter Location Date Diagnosis [facility] [address] [address] Mar, [facility] [address] [place] [address] Jan, [facility] [id number] [place] [address] Jan, [facility] [address] [address] Jan, Uncomplicated opioid dependence F11.20 [facility] [address] [place] [address] Jan, Uncomplicated opioid dependence F11.20 [facility] [address] [address] Jan, Uncomplicated opioid dependence F11.20 [facility] [address] [place] [address] Jan, [facility] [id number] [place] [address]472[address] 5[address] Jan, Abnormal EKG R94.31 ; PAC (premature atrial contraction) I49.1 ; PVCs (premature ventricular contractions) I49.3 ; Dyspnea on exertion R06.09 ; Chronic obstructive pulmonary disease, unspecified COPD type J44.9 ; History of drug use Z87.898 and Tobacco use Z72.0 [facility] [id number] [place] [address] Jan, Uncomplicated opioid dependence F11.20 [facility] [address] [place] [address] Jan, Uncomplicated opioid dependence F11.20 [facility] [address] [address] Dec, Chronic obstructive pulmonary disease, unspecified COPD type J44.9 and Uncomplicated opioid dependence F11.20 [facility] [id number] [place] [address] 13671- 2718 Dec, Uncomplicated opioid dependence F11.20 [facility] [address] [place] [address] Dec, Uncomplicated opioid dependence F11.20 [facility] [id number] [place] [address] 41652- 4091 Dec, Uncomplicated opioid dependence F11.20 [facility] [address] [place] [address] Dec, Uncomplicated opioid dependence F11.20 [facility] [id number] [place] [address] 93735- 4789 Dec, [facility] [id number] [place] [address] 78804- 4030 Dec, Uncomplicated opioid dependence F11.20 [facility] [id number] [place] [address] 14139- 2770 Dec, [facility] [address] [place] [address] Dec, Uncomplicated opioid dependence F11.20 [facility] [id number] [place] [address] 19524- 0[address] 13 Dec, 2017 [facility] [id number] [place] [address] 88389- 7538 Dec, Uncomplicated opioid dependence F11.20 [facility] [id number] [place] [address] 93276- 4394 Dec, Uncomplicated opioid dependence F11.20 [facility] [address] [address] Dec, [facility] [address] [place] [address] Nov, Uncomplicated opioid dependence F11.20 [facility] [address] [address] Nov, Other cardiac arrhythmia I49.8 [facility] [address] [place] [address] Nov, Uncomplicated opioid dependence F11.20 and Marijuana abuse F12.10 [facility] [id number] [place] [address] 28475- 4347 Nov, Uncomplicated opioid dependence F11.20 and Bradycardia R00.1 [facility] [id number] [place] [address] 47954- 0169 Nov, [facility] [address] [place] [address] Nov, Uncomplicated opioid dependence F11.20 and Marijuana abuse F12.10 [facility] [address] [place] [address] October, Uncomplicated opioid dependence F11.20 and Marijuana abuse F12.10 [facility] [id number] [place] [address] 38179- 2064 October, Uncomplicated opioid dependence F11.20 [facility] [id number] [place] [address] 29367- 7[address] October, [facility] [address] [place] [address] October, Uncomplicated opioid dependence F11.20 [facility] [address] [place] [address] October, Uncomplicated opioid dependence F11.20 [facility] [address] [address] October, Opioid abuse F11.10 and Injection of illicit drug within last 12 months F19.90 [facility] [address] [place] [address] October, Uncomplicated opioid dependence F11.20 and Marijuana abuse F12.10 [facility] [address] [address] October, [facility] [address] [place] [address] October, Uncomplicated opioid dependence F11.20 and Marijuana abuse F12.10 [facility] [address] [address] Sep, Chronic obstructive pulmonary disease, unspecified COPD type J44.9 ; Cigarette nicotine dependence with other nicotine-induced disorder F17.218 and PAC (premature atrial contraction) I49.1 [facility] [address] [place] [address] Sep, Uncomplicated opioid dependence F11.20 and Marijuana abuse F12.10 [facility] [id number] [place] [address] 65872- 1501 Sep, [facility] [id number] [place] [address] 45466- 6938 Sep, [facility] [id number] [place] [address] 22262- 4122 Sep, [facility] [id number] [place] [address] 16252- 9171 Jun, [facility] [address] [address] Jun, [facility] [address] [address] May, Chronic obstructive pulmonary disease, unspecified COPD type J44.9 [facility] [id number] [place] [address] 29842[address] 2948 May, Overflow incontinence of urine N39.490 [place] [address] [address] Apr, Bronchitis J40 ; Chronic obstructive pulmonary disease, unspecified COPD type J44.9 and Cigarette nicotine dependence with other nicotine-induced disorder F17.218 [place] [address] [address] Apr, [place] [address] [address] Jan, Bronchitis J40 [place] [address] [address]- [address] Jan, Bronchitis J40 [place] [address] 165[address]- [address] Dec, Bronchitis J40 ; Low back pain M54.5 and Other chronic pain G89.29 [place] [address] [address]- [address] Sep, [place] [id number] [place] [address] 56095- [address] Sep, [place] [id number] [place] [address] 17037- 4015 Nov, [place] [address] [address] Nov, IMMUNIZATIONS No Known Immunizations SOCIAL HISTORY Never Assessed REASON FOR VISIT SOCWK-FU, SOCWK: Follow Up PLAN OF CARE VITAL SIGNS [...]
--- OUTSIDE RECORDS SUMMARY | 2018-04-14 14:54 | XMS REPORT ---
Author Author CONOR GO Organization [facility] Address [address] [place] [address] Care Team Providers Care Guest Associate Name Role Phone CONOR GO Unavailable PROBLEMS Type Condition ICD9-CM Code WVT31-RC Code Onset Dates Condition Status SNOMED Code Problem Low back pain M54.5 Active 294278658 Problem Cigarette nicotine dependence with other nicotine-induced disorder F17.218 Active 57501160 Problem Chronic obstructive pulmonary disease, unspecified COPD type J44.9 Active 15907635 Problem PVCs (premature ventricular contractions) I49.3 Active 94235350 Problem Other cardiac arrhythmia I49.8 Active 33722387 Problem Bradycardia R00.1 Active 35021674 Problem PAC (premature atrial contraction) I49.1 Active 639526119 Problem Uncomplicated opioid dependence F11.20 Active 58449024 Problem Marijuana abuse F12.10 Active 70096265 ALLERGIES No Information ENCOUNTERS Encounter Location Date Diagnosis [facility] [address] [address] Mar, [facility] [address] [place] [address] Jan, [facility] [id number] [place] [address] Jan, [facility] [address] [address] Jan, Uncomplicated opioid dependence F11.[address] [facility] [address] [place] [address] Jan, Uncomplicated opioid dependence F11.20 [facility] [address] [address] Jan, Uncomplicated opioid dependence F11.[address] [facility] [address] [place] [address] Jan, [facility] [address] [place] [address]31- [address] Jan, Abnormal EKG R94.31 ; PAC (premature atrial contraction) I49.1 ; PVCs (premature ventricular contractions) I49.3 ; Dyspnea on exertion R06.09 ; Chronic obstructive pulmonary disease, unspecified COPD type J44.9 ; History of drug use Z87.898 and Tobacco use Z72.0 [facility] [id number] [place] [address] 31311- 7600 Jan, Uncomplicated opioid dependence F11.[address] [facility] [address] [place] [address] Jan, Uncomplicated opioid dependence F11.20 [facility] [address] [address]- [address] Dec, Chronic obstructive pulmonary disease, unspecified COPD type J44.9 and Uncomplicated opioid dependence F11.20 [facility] [id number] [place] [address] 19586- 5747 Dec, Uncomplicated opioid dependence F11.[address] [facility] [address] [place] [address] Dec, Uncomplicated opioid dependence F11.20 [facility] [id number] [place] [address] 42545- 8538 Dec, Uncomplicated opioid dependence F11.[address] [facility] [address] [place] [address] Dec, Uncomplicated opioid dependence F11.20 [facility] [id number] [place] [address] 54514- 9440 Dec, [facility] [id number] [place] [address] 99077- 9747 Dec, Uncomplicated opioid dependence F11.20 [facility] [id number] [place] [address] 37349- 5118 Dec, [facility] [address] [place] [address] Dec, Uncomplicated opioid dependence F11.20 [facility] [id number] [place] [address] 09222- 3260 13 Dec, 2017 [facility] [id number] [place] [address] 27916- 2655 Dec, Uncomplicated opioid dependence F11.20 [facility] [id number] [place] [address] 44257- 8841 Dec, Uncomplicated opioid dependence F11.20 [facility] [address] 244[address]- [address] Dec, [facility] [address] [place] [address] Nov, Uncomplicated opioid dependence F11.20 [facility] [address] [address]- 1365 Nov, Other cardiac arrhythmia I49.[address] [facility] [address] [place] [address] Nov, Uncomplicated opioid dependence F11.20 and Marijuana abuse F12.10 [facility] [id number] [place] [address] 50124- 8856 Nov, Uncomplicated opioid dependence F11.20 and Bradycardia R00.1 [facility] [id number] [place] [address] 34894- 6435 Nov, [facility] [address] [place] [address] Nov, Uncomplicated opioid dependence F11.20 and Marijuana abuse F12.[address] [facility] [address] [place] [address] October, Uncomplicated opioid dependence F11.20 and Marijuana abuse F12.10 [facility] [id number] [place] [address] 64499- 3795 October, Uncomplicated opioid dependence F11.20 [facility] [id number] [place] [address] 00302- 8143 October, [facility] [address] [place] [address] October, Uncomplicated opioid dependence F11.20 [facility] [address] [place] [address] October, Uncomplicated opioid dependence F11.20 [facility] [address] [address]- [address] October, Opioid abuse F11.10 and Injection of illicit drug within last 12 months F19.90 [facility] [address] [place] [address] October, Uncomplicated opioid dependence F11.20 and Marijuana abuse F12.10 [facility] [address] 24609- [address]856 October, [facility] [address] [place] [address] October, Uncomplicated opioid dependence F11.20 and Marijuana abuse F12.10 [facility] [address] [address]- [address] Sep, Chronic obstructive pulmonary disease, unspecified COPD type J44.9 ; Cigarette nicotine dependence with other nicotine-induced disorder F17.218 and PAC (premature atrial contraction) I49.[address] [facility] [address] [place] [address] Sep, Uncomplicated opioid dependence F11.20 and Marijuana abuse F12.10 [facility] [id number] [place] [address] 01194- 1024 Sep, [facility] [id number] [place] [address] 07014- 9575 Sep, [facility] [id number] [place] [address] 78212- 3502 Sep, [facility] [id number] [place] [address] 35152- 1313 Jun, [facility] [address] 77[address]- 9714 Jun, [facility] [address] [address] May, Chronic obstructive pulmonary disease, unspecified COPD type J44.9 [facility] [address] 64370- 9679 May, Overflow incontinence of urine N39.490 [place] [address] [address]- 489[address] Apr, Bronchitis J40 ; Chronic obstructive pulmonary disease, unspecified COPD type J44.9 and Cigarette nicotine dependence with other nicotine-induced disorder F17.218 [place] [address] [address]72- [address]85 Apr, [place] [address] 00980- 7965 Jan, Bronchitis J40 [place] [address] 42452- 7575 Jan, Bronchitis J40 [place] [address] 93479- 4145 Dec, Bronchitis J40 ; Low back pain M54.5 and Other chronic pain G89.29 [place] [address] 38654- 12[address] Sep, [place] [address] [address]- 3653 Sep, [place] [address] [address]11- [address] Nov, [place] [address] 56348- 1781 Nov, IMMUNIZATIONS No Known Immunizations SOCIAL HISTORY Never Assessed REASON FOR VISIT Induction Day 1 PLAN OF CARE VITAL SIGNS MEDICATIONS Medication Instructions Dosage Frequency Start Date End Date Duration Status Naltrexone HCl 50 mg Orally Once a day. Take 0.5 tablet daily x7 days then 1 tablet October, Nov, 30 day(s) Active RESULTS Name Result Date Reference Range URINE DRUG SCREEN (IN HOUSE) 2017-11-02 Lot # [id number] Exp date 02/2019 Control + COCAINE neg AMPH neg MTD neg THC neg OPIATE neg BENZO + PCP neg BAR neg OXY neg MAMP neg BUP neg MDMA neg TCA n/a ETOH SALIVA 2017-11-02 Lot [id number] Exp. 03/05/2018 Result neg PROCEDURES Procedure Date Ordered Result Body Site DRUG TEST PRSMV DIR OPT OBS November 02, 2017 INSTRUCTIONS MEDICATIONS ADMINISTERED No Known Medications MEDICAL (GENERAL) HISTORY Type Description Date Medical History Unspecified backache Medical History tips of 3rd and 4th digit on right hand cut off Hospitalization History had tips of 3rd and 4th digit on right hand cut off, got caught in dog cable
--- OUTSIDE RECORDS SUMMARY | 2018-04-14 14:55 | XMS REPORT ---
Author Author ELSA SANTOSH [facility] Address [address] [place] [address] Care Team Providers Care Grocery Store Manager Name Role Phone SANTOSH HUNTER Unavailable PROBLEMS Type Condition ICD9-CM Code AYR29-FD Code Onset Dates Condition Status SNOMED Code Problem Low back pain M54.5 Active 694481623 Problem Cigarette nicotine dependence with other nicotine-induced disorder F17.218 Active 95748580 Problem Chronic obstructive pulmonary disease, unspecified COPD type J44.9 Active 53950260 Problem PVCs (premature ventricular contractions) I49.3 Active 94347088 Problem Other cardiac arrhythmia I49.8 Active 29524070 Problem Bradycardia R00.1 Active 14951711 Problem PAC (premature atrial contraction) I49.1 Active 472807960 Problem Uncomplicated opioid dependence F11.20 Active 61535353 Problem Marijuana abuse F12.10 Active 47362478 ALLERGIES No Information ENCOUNTERS Encounter Location Date Diagnosis [place] [address] [address] Mar, [place] [address] [place] [address] Jan, [place] [address] [address] Jan, Uncomplicated opioid dependence F11.20 [facility] [address] [place] [address] Jan, [place] [address] 28[address] Jan, Abnormal EKG R94.31 ; PAC (premature atrial contraction) I49.1 ; PVCs (premature ventricular contractions) I49.3 ; Dyspnea on exertion R06.09 ; Chronic obstructive pulmonary disease, unspecified COPD type J44.9 ; History of drug use Z87.898 and Tobacco use Z72.0 [place] [id number] [place] [address] 47446- 9642 Jan, Uncomplicated opioid dependence F11.20 [facility] [address] [place] [address] Jan, Uncomplicated opioid dependence F11.20 [facility] [address] [place] [id number] [place] [address] 55386- 7345 Dec, Chronic obstructive pulmonary disease, unspecified COPD type J44.9 and Uncomplicated opioid dependence F11.20 [facility] [address] [place] [id number] [place] [address] 95648- 5515 Dec, Uncomplicated opioid dependence F11.20 [facility] [address] [place] [address] Dec, Uncomplicated opioid dependence F11.20 [facility] [address] [place] [id number] [place] [address] 92473- 2197 Dec, Uncomplicated opioid dependence F11.20 [facility] [address] [place] [address] Dec, Uncomplicated opioid dependence F11.20 [facility] [address] [place] [id number] [place] [address] 87576- 2728 Dec, [facility] [address] [place] [id number] [place] [address] 34569- 254 Dec, Uncomplicated opioid dependence F11.20 [facility] [address] [place] [id number] [place] [address] 88816- 3609 Dec, [facility] [address] [place] [address] Dec, Uncomplicated opioid dependence F11.20 [facility] [id number] [place] [address]1378 2546 Dec, [facility] [address] [place] [id number] [place] [address] 54351- 2546 Dec, Uncomplicated opioid dependence F11.20 [facility] [id number] [place] [address] 21845- 2086 Dec, Uncomplicated opioid dependence F11.20 [facility] [id number] [place] [address] 54441- 7712 Dec, [facility] [address] [place] [address] Nov, Uncomplicated opioid dependence F11.20 [facility] [address] [place] [id number] [place] [address] 97434- 0593 15 Nov, 2017 Other cardiac arrhythmia I49.8 [facility] [address] [place] [address] 15 Nov, 2017 Uncomplicated opioid dependence F11.20 and Marijuana abuse F12.10 [facility] [address] [place] [id number] [place] [address] 88988- 0662 13 Nov, 2017 Uncomplicated opioid dependence F11.20 and Bradycardia R00.1 [facility] [address] [place] [id number] [place] [address] 22755- 8126 07 Nov, 2017 [facility] [address] [place] [address] Nov, Uncomplicated opioid dependence F11.20 and Marijuana abuse F12.10 [facility] [address] [place] [address] October, Uncomplicated opioid dependence F11.20 and Marijuana abuse F12.10 [facility] [address] [place] [id number] [place] [address] 48169- 0775 October, Uncomplicated opioid dependence F11.20 [facility] [address] [place] [id number] [place] [address] 58339- 4196 October, [facility] [address] [place] [address] October, Uncomplicated opioid dependence F11.20 [facility] [address] [place] [id number] [place] [address] 83655- 9347 October, Uncomplicated opioid dependence F11.20 [facility] [address] [place] [id number] [place] [address] 18830- 6744 October, Opioid abuse F11.10 and Injection of illicit drug within last 12 months F19.90 [facility] [address] [place] [address] October, Uncomplicated opioid dependence F11.20 and Marijuana abuse F12.10 [facility] [address] [place] [id number] [place] [address] 40528- 9777 October, [facility] [address] [place] [address] October, Uncomplicated opioid dependence F11.20 and Marijuana abuse F12.10 [facility] [address] [place] [id number] [place] [address] 61646- 7825 Sep, Chronic obstructive pulmonary disease, unspecified COPD type J44.9 ; Cigarette nicotine dependence with other nicotine-induced disorder F17.218 and PAC (premature atrial contraction) I49.1 [facility] [address] [place] [address] Sep, Uncomplicated opioid dependence F11.20 and Marijuana abuse F12.10 [facility] [address] [place] [id number] [place] [address] 73257- 5502 Sep, [facility] [address] 58564- 8785 Sep, [facility] [address] 36740- 3301 Sep, [facility] [address] 37415- 6270 Jun, [facility] [address] [place] [id number] [place] [address] 89298- 4519 Jun, [facility] [address] 57404- 0349 May, Chronic obstructive pulmonary disease, unspecified COPD type J44.9 [facility] [address] [place] [id number] [place] [address] 10799- 3455 May, Overflow incontinence of urine N39.490 [facility] [address] [place] [id number] [place] [address] 01296- 9651 Apr, Bronchitis J40 ; Chronic obstructive pulmonary disease, unspecified COPD type J44.9 and Cigarette nicotine dependence with other nicotine-induced disorder F17.218 [facility] [address] [address] Apr, [facility] [address] [place] [id number] [place] [address] 67694- 7692 Jan, Bronchitis J40 [facility] [address] [place] [id number] [place] [address] 67433- 6947 Jan, Bronchitis J40 [facility] [address] [place] [id number] [place] [address] 05819- 1803 Dec, Bronchitis J40 ; Low back pain M54.5 and Other chronic pain G89.29 [place] [address] [place] [id number] [place] [address] 60659- 3618 Sep, [facility] [address] [place] [id number] [place] [address] 44196- 8790 Sep, [place] [address] [place] [id number] [place] [address] 05911- 0031 Nov, [facility] [address] [place] [address] 43173- 3461 Nov, IMMUNIZATIONS No Known Immunizations SOCIAL HISTORY Never Assessed REASON FOR VISIT Tx plan PLAN OF CARE Activity Details Follow Up 1 Week Reason:SUBABFU VITAL SIGNS MEDICATIONS Unknown Medications RESULTS No Results PROCEDURES Procedure Date Ordered Result Body Site Alcohol and/or drug services October 21, 2017 INSTRUCTIONS MEDICATIONS ADMINISTERED No Known Medications MEDICAL (GENERAL) HISTORY Type Description Date Medical History Unspecified backache Medical History tips of 3rd and 4th digit on right hand cut off Hospitalization History had tips of 3rd and 4th digit on right hand cut off, got caught in dog cable
--- OUTSIDE RECORDS SUMMARY | 2018-04-14 14:55 | XMS REPORT ---
Author Author KULDIP DUONG Organization [facility] [facility] Address [address] [place] [address] Care Team Providers Care Property Master Name Role Phone KULDIP DUONG Unavailable PROBLEMS Type Condition ICD9-CM Code CTQ58-ZD Code Onset Dates Condition Status SNOMED Code Problem Low back pain M54.5 Active 142298281 Problem Cigarette nicotine dependence with other nicotine-induced disorder F17.218 Active 37545064 Problem Chronic obstructive pulmonary disease, unspecified COPD type J44.9 Active 98363601 Problem PVCs (premature ventricular contractions) I49.3 Active 53020047 Problem Other cardiac arrhythmia I49.8 Active 24996375 Problem Bradycardia R00.1 Active 40060777 Problem PAC (premature atrial contraction) I49.1 Active 532456514 Problem Uncomplicated opioid dependence F11.20 Active 06688182 Problem Marijuana abuse F12.10 Active 23876475 ALLERGIES No Known Allergies ENCOUNTERS Encounter Location Date Diagnosis [place] [address] [address] Mar, [facility] [address] [place] [address] Jan, [facility] [address] 05997- 3576 Jan, Abnormal EKG R94.31 ; PAC (premature atrial contraction) I49.1 ; PVCs (premature ventricular contractions) I49.3 ; Dyspnea on exertion R06.09 ; Chronic obstructive pulmonary disease, unspecified COPD type J44.9 ; History of drug use Z87.898 and Tobacco use Z72.0 [facility] [address] 97693- 1809 Jan, Uncomplicated opioid dependence F11.20 [facility] [address] [place] [address] Jan, Uncomplicated opioid dependence F11.20 [facility] [address] [place] [address] 72950- 4035 Dec, Chronic obstructive pulmonary disease, unspecified COPD type J44.9 and Uncomplicated opioid dependence F11.20 [facility] [address] [place] [id number] [place] [address] 05252- 4013 Dec, Uncomplicated opioid dependence F11.20 [facility] [address] [place] [address] Dec, Uncomplicated opioid dependence F11.20 [facility] [address] [place] [id number] [place] [address] 15645- 0863 Dec, Uncomplicated opioid dependence F11.20 [facility] [address] [place] [address] Dec, Uncomplicated opioid dependence F11.20 [facility] [address] [place] [id number] [place] [address] 20910- 6758 Dec, [facility] [address] [place] [id number] [place] [address] 92346- 9952 Dec, Uncomplicated opioid dependence F11.20 [facility] [address] [place] [id number] [place] [address] 18984- 9465 Dec, [facility] [address] [place] [address] Dec, Uncomplicated opioid dependence F11.20 [facility] [address] [place] [address] 73455- 6206 Dec, [facility] [address] [place] [id number] [place] [address] 23453- 0886 Dec, Uncomplicated opioid dependence F11.20 [facility] [address] [place] [id number] [place] [address] 12635- 3048 Dec, Uncomplicated opioid dependence F11.20 [facility] [address] [place] [id number] [place] [address] 64533- 1750 Dec, [facility] [address] [place] [address] Nov, Uncomplicated opioid dependence F11.20 [facility] [address] [place] [id number] [place] [address] 74888- 1111 15 Nov, 2017 Other cardiac arrhythmia I49.8 [facility] [address] [place] [address] 15 Nov, 2017 Uncomplicated opioid dependence F11.20 and Marijuana abuse F12.10 [facility] [address] [place] [id number] [place] [address] 02020- 0864 13 Nov, 2017 Uncomplicated opioid dependence F11.20 and Bradycardia R00.1 [facility] [address] 53610- 2520 07 Nov, 2017 [facility] [address] [place] [address] Nov, Uncomplicated opioid dependence F11.20 and Marijuana abuse F12.10 [facility] [address] [place] [address] October, Uncomplicated opioid dependence F11.20 and Marijuana abuse F12.10 [facility] [address] [place] [id number] [place] [address] 97322- 7158 October, Uncomplicated opioid dependence F11.20 [facility] [address] [place] [id number] [place] [address] 49761- 5779 October, [facility] [address] [place] [address] October, Uncomplicated opioid dependence F11.20 [facility] [address] [place] [id number] [place] [address] 51394- 5015 October, Uncomplicated opioid dependence F11.20 [facility] [address] [place] [id number] [place] [address] 42160- 3903 October, Opioid abuse F11.10 and Injection of illicit drug within last 12 months F19.90 [facility] [address] [place] [address] October, Uncomplicated opioid dependence F11.20 and Marijuana abuse F12.10 [facility] [address] [place] [id number] [place] [address] 35971- 7769 October, [facility] [address] [place] [address] October, Uncomplicated opioid dependence F11.20 and Marijuana abuse F12.10 [facility] [address] [place] [id number] [place] [address] 89758- 2162 Sep, Chronic obstructive pulmonary disease, unspecified COPD type J44.9 ; Cigarette nicotine dependence with other nicotine-induced disorder F17.218 and PAC (premature atrial contraction) I49.1 [facility] [address] [place] [address] Sep, Uncomplicated opioid dependence F11.20 and Marijuana abuse F12.10 [facility] [address] [place] [id number] [place] [address] 85395- 9159 Sep, [place] [address] [place] [id number] [place] [address] 78608- 0688 Sep, [facility] [address] [place] [id number] [place] [address] 46862- 8016 Sep, [facility] [address] [place] [id number] [place] [address] 30379- 3368 Jun, [facility] [address] [place] [id number] [place] [address] 44051- 1613 Jun, [place] [address] [place] [id number] [place] [address] 06415- 2313 May, Chronic obstructive pulmonary disease, unspecified COPD type J44.9 [place] [address] [place] [id number] [place] [address] 65273- 0630 May, Overflow incontinence of urine N39.490 [facility] [address] [place] [id number] [place] [address] 10459- 7204 Apr, Bronchitis J40 ; Chronic obstructive pulmonary disease, unspecified COPD type J44.9 and Cigarette nicotine dependence with other nicotine-induced disorder F17.218 [facility] [address] [place] [id number] [place] [address] 51453- 3125 Apr, [facility] [address] [place] [id number] [place] [address] 37422- 1316 Jan, Bronchitis J40 [facility] [address] [place] [address]- 6940 Jan, Bronchitis J40 [facility] [address] [place] [id number] [place] [address] 00633- 1905 Dec, Bronchitis J40 ; Low back pain M54.5 and Other chronic pain G89.29 [place] [address] [place] [id number] [place] [address] 54100- 8433 Sep, [facility] [address] [place] [id number] [place] [address] 28611- 8426 Sep, [place] [address] [place] [id number] [place] [address] 92127- 2406 Nov, [place] [address] [place] [id number] [place] [address] 14077- 6381 Nov, IMMUNIZATIONS No Known Immunizations SOCIAL HISTORY Never Assessed REASON FOR VISIT COPD WB-MA PLAN OF CARE Activity Details Follow Up 6 Months Reason: VITAL SIGNS Height 68 in 2017-10-03 Weight 119 lbs 2017-10-03 Heart Rate 46 bpm 2017-10-03 Respiratory Rate 18 2017-10-03 Oximetry on room air:96 % 2017-10-03 BMI 18.09 kg/m2 2017-10-03 Blood pressure systolic 106 mmHg 2017-10-03 Blood pressure diastolic 58 mmHg 2017-10-03 MEDICATIONS Medication Instructions Dosage Frequency Start Date End Date Duration Status Ibuprofen 600 mg take 1 tablet (600 mg) by oral route every 6 hours as needed with food PRN Nov, Not-Taking Advair Diskus 250-50 MCG/DOSE Inhalation Twice a day 1 puff 12h Jun, Active Chantix Starting Month Noman 0.5 MG X 11 & 1 MG X 42 as directed Apr, Not-Taking ProAir HFA 108 (90 Base) MCG/ACT Inhalation every 4 hrs 2 puffs as needed 4h Jun, Active RESULTS No Results PROCEDURES Procedure Date Ordered Result Body Site EKG, TRACING (IN-HOUSE) 2017-10-03 N/A COMPREHEN METABOLIC PANEL October 03, 2017 VENIPUNCT, ROUTINE* October 03, 2017 ASSAY OF MAGNESIUM October 03, 2017 ELECTROCARDIOGRAM, TRACING October 03, 2017 INSTRUCTIONS MEDICATIONS ADMINISTERED No Known Medications MEDICAL (GENERAL) HISTORY Type Description Date Medical History Unspecified backache Medical History tips of 3rd and 4th digit on right hand cut off Hospitalization History had tips of 3rd and 4th digit on right hand cut off, got caught in dog cable
--- OUTSIDE RECORDS SUMMARY | 2018-04-14 14:55 | XMS REPORT ---
Author Author OMAYRA FINLEY [facility] Address [address] [place] [address] Care Team Providers Care Compliance Analyst Name Role Phone OMAYRA FINLEY Unavailable PROBLEMS Type Condition ICD9-CM Code [id number] Code Onset Dates Condition Status SNOMED Code Problem Low back pain M54.5 Active 948095639 Problem Cigarette nicotine dependence with other nicotine-induced disorder F17.218 Active 28897239 Problem Chronic obstructive pulmonary disease, unspecified COPD type J44.9 Active 04880388 Problem PVCs (premature ventricular contractions) I49.3 Active 85577108 Problem Other cardiac arrhythmia I49.8 Active 10960894 Problem Bradycardia R00.1 Active 31958843 Problem PAC (premature atrial contraction) I49.1 Active 733837660 Problem Uncomplicated opioid dependence F11.20 Active 01325481 Problem Marijuana abuse F12.10 Active 15891640 ALLERGIES No Information ENCOUNTERS Encounter Location Date Diagnosis [place] [id number] [address] Mar, [facility] [address] [place] [address] Jan, [facility] [address] [place] [id number] [place] [address]28[address] Jan, Abnormal EKG R94.31 ; PAC (premature atrial contraction) I49.1 ; PVCs (premature ventricular contractions) I49.3 ; Dyspnea on exertion R06.09 ; Chronic obstructive pulmonary disease, unspecified COPD type J44.9 ; History of drug use Z87.898 and Tobacco use Z72.0 [facility] [address] [address] Jan, Uncomplicated opioid dependence F11.20 [facility] [address] [place] [address] Jan, Uncomplicated opioid dependence F11.20 [facility] [id number] [place] [address] 55724[address] 1009 Dec, Chronic obstructive pulmonary disease, unspecified COPD type J44.9 and Uncomplicated opioid dependence F11.20 [facility] [address] [place] [id number] [place] [address] 23637- 5766 Dec, Uncomplicated opioid dependence F11.20 [facility] [address] [place] [address] Dec, Uncomplicated opioid dependence F11.20 [facility] [address] [place] [id number] [place] [address]32 2543 Dec, Uncomplicated opioid dependence F11.20 [facility] [address] [place] [address] Dec, Uncomplicated opioid dependence F11.20 [facility] [address] [place] [id number] [place] [address] 06314- 2284 Dec, [facility] [address] [place] [id number] [place] [address] 54228[address] 3289 Dec, Uncomplicated opioid dependence F11.20 [facility] [address] [place] [id number] [place] [address] 04397- 4261 Dec, [facility] [address] [place] [address] Dec, Uncomplicated opioid dependence F11.20 [facility] [id number] [place] [address] 78071- 4923 Dec, [facility] [address] [place] [id number] [place] [address] 88367- 254 Dec, Uncomplicated opioid dependence F11.20 [facility] [address] [place] [id number] [place] [address] 23928 2542 Dec, Uncomplicated opioid dependence F11.20 [facility] [address] [place] [place] [id number] [place] [address] 93233- 2549 Dec, [facility] [address] [place] [address] Nov, Uncomplicated opioid dependence F11.20 [facility] [address] [place] [id number] [place] [address] 36043- 0827 15 Nov, 2017 Other cardiac arrhythmia I49.8 [facility] [address] [place] [address] 15 Nov, 2017 Uncomplicated opioid dependence F11.20 and Marijuana abuse F12.10 [facility] [address] [address] 13 Nov, 2017 Uncomplicated opioid dependence F11.20 and Bradycardia R00.1 [facility] [address] [address]- [address] 07 Nov, 2017 [facility] [address] [place] [address] Nov, Uncomplicated opioid dependence F11.20 and Marijuana abuse F12.10 [facility] [address] [place] [address] October, Uncomplicated opioid dependence F11.20 and Marijuana abuse F12.10 [facility] [address] [address]- [address] October, Uncomplicated opioid dependence F11.20 [facility] [address] [address]- 58[address] October, [facility] [address] [place] [address] October, Uncomplicated opioid dependence F11.20 [facility] [address] [place] [id number] [place] [address] 23283- 1132 October, Uncomplicated opioid dependence F11.20 [facility] [address] [address] October, Opioid abuse F11.10 and Injection of illicit drug within last 12 months F19.90 [facility] [address] [place] [address] October, Uncomplicated opioid dependence F11.20 and Marijuana abuse F12.10 [facility] [address] [place] [id number] [place] [address] 64807- 00[address] October, [facility] [address] [place] [address] October, Uncomplicated opioid dependence F11.20 and Marijuana abuse F12.10 [facility] [address] [place] [id number] [place] [address] 30153- 4[address] Sep, Chronic obstructive pulmonary disease, unspecified COPD type J44.9 ; Cigarette nicotine dependence with other nicotine-induced disorder F17.218 and PAC (premature atrial contraction) I49.1 [facility] [address] [place] [address] Sep, Uncomplicated opioid dependence F11.20 and Marijuana abuse F12.10 [facility] [address] [place] [id number] [place] [address]6576- 3[address] Sep, [place] [address] [address] Sep, [facility] [address] [address] Sep, [facility] [address] [address] Jun, [facility] [address] [place] [id number] [place] [address]18- 9[address] Jun, [place] [address] [address] May, Chronic obstructive pulmonary disease, unspecified COPD type J44.9 [place] [address] [place] [id number] [place] [address]- 49[address] May, Overflow incontinence of urine N39.490 [facility] [address] [place] [id number] [place] [address] 98[address]- 9510 Apr, Bronchitis J40 ; Chronic obstructive pulmonary disease, unspecified COPD type J44.9 and Cigarette nicotine dependence with other nicotine-induced disorder F17.218 [facility] [address] [place] [id number] [place] [address] 00788- 0862 Apr, [facility] [address] [address] Jan, Bronchitis J40 [facility] [address] [address] Jan, Bronchitis J40 [facility] [address] [place] [id number] [place] [address] 36732- 6[address] Dec, Bronchitis J40 ; Low back pain M54.5 and Other chronic pain G89.29 [place] [address] [address]- [address] Sep, [facility] [address] [place] [id number] [place] [address] 44787- 3824 Sep, [facility] [address] [place] [id number] [place] [address] 82415- 0888 Nov, [facility] [address] [place] [id number] [place] [address] 41291- 9592 Nov, IMMUNIZATIONS No Known Immunizations SOCIAL HISTORY Never Assessed REASON FOR VISIT SOCWK f/u PLAN OF CARE VITAL SIGNS MEDICATIONS Unknown [...]
--- OUTSIDE RECORDS SUMMARY | 2018-04-14 14:55 | XMS REPORT ---
Author Author CONOR GO Organization [facility] Address [address] [place] [address] Care Team Providers Care Form Builder Helper Name Role Phone CONOR GO Unavailable PROBLEMS Type Condition ICD9-CM Code DFY49-SU Code Onset Dates Condition Status SNOMED Code Problem Low back pain M54.5 Active 817315036 Problem Cigarette nicotine dependence with other nicotine-induced disorder F17.218 Active 10357508 Problem Chronic obstructive pulmonary disease, unspecified COPD type J44.9 Active 51199155 Problem PVCs (premature ventricular contractions) I49.3 Active 33056473 Problem Other cardiac arrhythmia I49.8 Active 04141947 Problem Bradycardia R00.1 Active 08847078 Problem PAC (premature atrial contraction) I49.1 Active 373221283 Problem Uncomplicated opioid dependence F11.20 Active 26698850 Problem Marijuana abuse F12.10 Active 44603295 ALLERGIES No Information ENCOUNTERS Encounter Location Date Diagnosis [facility] [address] [address] Mar, [facility] [address] [place] [address] Jan, [facility] [address] [place] [id number] [place] [address] 95524- 1691 Jan, [facility] [address] [address]- [address] Jan, Uncomplicated opioid dependence F11.20 [facility] [address] [place] [address] Jan, Uncomplicated opioid dependence F11.20 [facility] [address] [address]- [address] Jan, Uncomplicated opioid dependence F11.20 [facility] [address] [place] [address] Jan, [facility] [address] [place] [address] 09425- 3299 Jan, Abnormal EKG R94.31 ; PAC (premature atrial contraction) I49.1 ; PVCs (premature ventricular contractions) I49.3 ; Dyspnea on exertion R06.09 ; Chronic obstructive pulmonary disease, unspecified COPD type J44.9 ; History of drug use Z87.898 and Tobacco use Z72.0 [facility] [place] [address] [place] [id number] [place] [address] 59756- 9623 Jan, Uncomplicated opioid dependence F11.20 [facility] [address] [place] [address] Jan, Uncomplicated opioid dependence F11.20 [facility] [address] 20947- 1111 Dec, Chronic obstructive pulmonary disease, unspecified COPD type J44.9 and Uncomplicated opioid dependence F11.20 [facility] [address] [place] [id number] [place] [address] 82433- 2461 Dec, Uncomplicated opioid dependence F11.20 [facility] [address] [place] [address] Dec, Uncomplicated opioid dependence F11.20 [facility] [address] [place] [id number] [place] [address] 60208- 9912 Dec, Uncomplicated opioid dependence F11.20 [facility] [address] [place] [address] Dec, Uncomplicated opioid dependence F11.20 [facility] [address] [place] [id number] [place] [address] 75680- 6452 Dec, [facility] [address] [place] [id number] [place] [address] 06896- 4960 Dec, Uncomplicated opioid dependence F11.20 [facility] [place] [address] [place] [id number] [place] [address] 69580- 6253 Dec, [facility] [address] [place] [address] Dec, Uncomplicated opioid dependence F11.20 [facility] [place] [address] [place] [id number] [place] [address] 48744- 2504 13 Dec, 2017 [facility] [place] [address] [place] [id number] [place] [address] 73356- 7216 Dec, Uncomplicated opioid dependence F11.20 [facility] [address] [place] [id number] [place] [address] 27410- 7241 Dec, Uncomplicated opioid dependence F11.20 [facility] [address] [address]- [address] Dec, [facility] [address] [place] [address] Nov, Uncomplicated opioid dependence F11.20 [facility] [address] 86019- 9132 Nov, Other cardiac arrhythmia I49.8 [facility] [address] [place] [address] Nov, Uncomplicated opioid dependence F11.20 and Marijuana abuse F12.10 [facility] [address] [place] [id number] [place] [address] 94527- 0569 Nov, Uncomplicated opioid dependence F11.20 and Bradycardia R00.1 [facility] [place] [address] [place] [id number] [place] [address] 53204- 7860 Nov, [facility] [address] [place] [address] Nov, Uncomplicated opioid dependence F11.20 and Marijuana abuse F12.10 [facility] [address] [place] [address] October, Uncomplicated opioid dependence F11.20 and Marijuana abuse F12.10 [facility] [address] [place] [id number] [place] [address] 54370- 5734 October, Uncomplicated opioid dependence F11.20 [facility] [place] [address] [place] [id number] [place] [address] 63356- 0722 October, [facility] [address] [place] [address] October, Uncomplicated opioid dependence F11.20 [facility] [address] [place] [address]- [address] October, Uncomplicated opioid dependence F11.20 [facility] [address] [address]- [address] October, Opioid abuse F11.10 and Injection of illicit drug within last 12 months F19.90 [facility] [address] [place] [address] October, Uncomplicated opioid dependence F11.20 and Marijuana abuse F12.10 [facility] [address] [address]- 4092 October, [facility] [address] [place] [address] October, Uncomplicated opioid dependence F11.20 and Marijuana abuse F12.10 [facility] [address] 42616- 1194 Sep, Chronic obstructive pulmonary disease, unspecified COPD type J44.9 ; Cigarette nicotine dependence with other nicotine-induced disorder F17.218 and PAC (premature atrial contraction) I49.1 [facility] [address] [place] [address] Sep, Uncomplicated opioid dependence F11.20 and Marijuana abuse F12.10 [facility] [address] [place] [id number] [place] [address] 64965- 4064 Sep, [facility] [address] [place] [id number] [place] [address] 28861- 7292 Sep, [facility] [address] [place] [id number] [place] [address] 82545- 0249 Sep, [facility] [address] [place] [id number] [place] [address] 50361- 6710 Jun, [facility] [address] 35497- 3495 Jun, [facility] [address] [address]1243- 3385 May, Chronic obstructive pulmonary disease, unspecified COPD type J44.9 [facility] [address] [place] [id number] [place] [address] 04474- 5788 May, Overflow incontinence of urine N39.490 [place] [address] 32529- 0854 Apr, Bronchitis J40 ; Chronic obstructive pulmonary disease, unspecified COPD type J44.9 and Cigarette nicotine dependence with other nicotine-induced disorder F17.218 [place] [address] 00959- 9610 Apr, [place] [address] 22732- 8551 Jan, Bronchitis J40 [place] [address] 14272- 5281 Jan, Bronchitis J40 [place] [address] 08426- 2151 Dec, Bronchitis J40 ; Low back pain M54.5 and Other chronic pain G89.29 [place] [address] [place] [id number] [place] [address] 06958- 0065 Sep, [place] [address] [place] [id number] [place] [address] 72798- 2978 Sep, [place] [address] [place] [id number] [place] [address] 19479- 6103 Nov, [place] [address] 86074- 5414 Nov, IMMUNIZATIONS No Known Immunizations SOCIAL HISTORY Never Assessed REASON FOR VISIT Requests return call PLAN OF CARE VITAL SIGNS MEDICATIONS [...]
--- OUTSIDE RECORDS SUMMARY | 2018-04-14 14:55 | XMS REPORT ---
Author Author ELSA SANTOSH [facility] Address [address] [place] [address] Care Team Providers Care Monument Erector Name Role Phone SANTOSH HUNTER Unavailable PROBLEMS Type Condition ICD9-CM Code MHJ16-TI Code Onset Dates Condition Status SNOMED Code Problem Low back pain M54.5 Active 441761182 Problem Cigarette nicotine dependence with other nicotine-induced disorder F17.218 Active 63946081 Problem Chronic obstructive pulmonary disease, unspecified COPD type J44.9 Active 00562809 Problem PVCs (premature ventricular contractions) I49.3 Active 07162203 Problem Other cardiac arrhythmia I49.8 Active 01455530 Problem Bradycardia R00.1 Active 72335677 Problem PAC (premature atrial contraction) I49.1 Active 053305843 Problem Uncomplicated opioid dependence F11.20 Active 14932569 Problem Marijuana abuse F12.10 Active 56902150 ALLERGIES No Information ENCOUNTERS Encounter Location Date Diagnosis [facility] [address] [address] Mar, [facility] [address] [place] [address] Jan, [facility] [id number] [place] [address] Jan, [facility] [address] [address] Jan, Uncomplicated opioid dependence F11.20 [facility] [address] [place] [address] Jan, Uncomplicated opioid dependence F11.20 [facility] [address] [address] Jan, Uncomplicated opioid dependence F11.20 [facility] [address] [place] [address] Jan, [facility] [id number] [place] [address] Jan, Abnormal EKG R94.31 ; PAC (premature atrial contraction) I49.1 ; PVCs (premature ventricular contractions) I49.3 ; Dyspnea on exertion R06.09 ; Chronic obstructive pulmonary disease, unspecified COPD type J44.9 ; History of drug use Z87.898 and Tobacco use Z72.0 [facility] [address] [address] Jan, Uncomplicated opioid dependence F11.20 [facility] [address] [place] [address] Jan, Uncomplicated opioid dependence F11.20 [facility] [address] [address] Dec, Chronic obstructive pulmonary disease, unspecified COPD type J44.9 and Uncomplicated opioid dependence F11.20 [facility] [address] [address] Dec, Uncomplicated opioid dependence F11.20 [facility] [address] [place] [address] Dec, Uncomplicated opioid dependence F11.20 [facility] [address] [address] Dec, Uncomplicated opioid dependence F11.20 [facility] [address] [place] [address] Dec, Uncomplicated opioid dependence F11.20 [facility] [id number] [place] [address] Dec, [facility] [address] [address] Dec, Uncomplicated opioid dependence F11.20 [facility] [id number] [place] [address] Dec, [facility] [address] [place] [address] Dec, Uncomplicated opioid dependence F11.20 [facility] [address] [place] [address] Dec, [facility] [id number] [place] [address]- 67[address] Dec, Uncomplicated opioid dependence F11.20 [facility] [id number] [place] [address] 47[address] Dec, Uncomplicated opioid dependence F11.20 [facility] [address] [address] Dec, [facility] [address] [place] [address] Nov, Uncomplicated opioid dependence F11.20 [facility] [address] [address] Nov, Other cardiac arrhythmia I49.8 [facility] [address] [place] [address] Nov, Uncomplicated opioid dependence F11.20 and Marijuana abuse F12.10 [facility] [address] [address] Nov, Uncomplicated opioid dependence F11.20 and Bradycardia R00.1 [facility] [address] [address] Nov, [facility] [address] [place] [address] 07 Nov, 2017 Uncomplicated opioid dependence F11.20 and Marijuana abuse F12.10 [facility] [address] [place] [address] October, Uncomplicated opioid dependence F11.20 and Marijuana abuse F12.10 [facility] [id number] [place] [address] October, Uncomplicated opioid dependence F11.20 [facility] [address] [address] October, [facility] [address] [place] [address] October, Uncomplicated opioid dependence F11.20 [facility] [address] [place] [address] October, Uncomplicated opioid dependence F11.20 [facility] [address] [address] October, Opioid abuse F11.10 and Injection of illicit drug within last 12 months F19.90 [facility] [address] [place] [address] October, Uncomplicated opioid dependence F11.20 and Marijuana abuse F12.10 [facility] [address] [address] October, [facility] [address] [place] [address] October, Uncomplicated opioid dependence F11.20 and Marijuana abuse F12.10 [facility] [id number] [place] [address] Sep, Chronic obstructive pulmonary disease, unspecified COPD type J44.9 ; Cigarette nicotine dependence with other nicotine-induced disorder F17.218 and PAC (premature atrial contraction) I49.1 [facility] [address] [place] [address] Sep, Uncomplicated opioid dependence F11.20 and Marijuana abuse F12.10 [facility] [id number] [place] [address] Sep, [facility] [id number] [place] [address] 9[address]- 67[address] Sep, [facility] [id number] [place] [address] 6[address] Sep, [facility] [id number] [place] [address] Jun, [facility] [address] [address] Jun, [facility] [id number] [place] [address] May, Chronic obstructive pulmonary disease, unspecified COPD type J44.9 [facility] [id number] [place] [address] May, Overflow incontinence of urine N39.490 [place] [address] [address] Apr, Bronchitis J40 ; Chronic obstructive pulmonary disease, unspecified COPD type J44.9 and Cigarette nicotine dependence with other nicotine-induced disorder F17.218 [place] [address] [address] Apr, [place] [address] [address] Jan, Bronchitis J40 [place] [address] [address] Jan, Bronchitis J40 [place] [address] [address] Dec, Bronchitis J40 ; Low back pain M54.5 and Other chronic pain G89.29 [place] [id number] [place] [address] Sep, [place] [address] [address] Sep, [place] [id number] [place] [address] Nov, [place] [address] [address] Nov, IMMUNIZATIONS No Known Immunizations SOCIAL HISTORY Never Assessed REASON FOR VISIT f/u PLAN OF CARE Activity Details Follow Up 2 Weeks Reason:SUBABFU VITAL SIGNS MEDICATIONS Unknown Medications RESULTS No Results PROCEDURES Procedure Date Ordered Result Body Site Alcohol and/or drug services October 28, 2017 INSTRUCTIONS MEDICATIONS ADMINISTERED No Known Medications MEDICAL (GENERAL) HISTORY Type Description Date Medical History Unspecified backache Medical History tips of 3rd and 4th digit on right hand cut off Hospitalization History had tips of 3rd and 4th digit on right hand cut off, got caught in dog cable
--- OUTSIDE RECORDS SUMMARY | 2018-04-14 14:56 | XMS REPORT ---
Author Author KULDIP DUONG [facility] Address [address] [place] [address] Care Team Providers Care Clinical Care Leader Name Role Phone KULDIP DUONG Unavailable PROBLEMS Type Condition ICD9-CM Code JHL00-KX Code Onset Dates Condition Status SNOMED Code Problem Chronic obstructive pulmonary disease, unspecified COPD type J44.9 Active 85203359 Problem Low back pain M54.5 Active 544344236 Problem Other cardiac arrhythmia I49.8 Active 17283703 Problem Uncomplicated opioid dependence F11.20 Active 03650933 Problem PAC (premature atrial contraction) I49.1 Active 820399999 Problem Cigarette nicotine dependence with other nicotine-induced disorder F17.218 Active 88906319 Problem Marijuana abuse F12.10 Active 04244648 Problem Bradycardia R00.1 Active 63437055 ALLERGIES No Information ENCOUNTERS Encounter Location Date Diagnosis [facility] [address] [place] [address] Jan, [facility] [address] [address] Jan, [facility] [address] [place] [address] Jan, [facility] [id number] [place] [address] Dec, Chronic obstructive pulmonary disease, unspecified COPD type J44.9 and Uncomplicated opioid dependence F11.20 [facility] [id number] [place] [address]- [address]67 Dec, Uncomplicated opioid dependence F11.20 [facility] [address] [place] [address] Dec, Uncomplicated opioid dependence F11.20 [facility] [id number] [place] [address]- 2331 Dec, Uncomplicated opioid dependence F11.20 [facility] [address] [place] [address] Dec, Uncomplicated opioid dependence F11.20 [facility] [address] [address] Dec, [facility] [address] [address] Dec, Uncomplicated opioid dependence F11.20 [facility] [address] [address] Dec, [facility] [address] [place] [address] Dec, Uncomplicated opioid dependence F11.20 [facility] [address] [address] Dec, [facility] [address] [address]- [address] Dec, Uncomplicated opioid dependence F11.20 [facility] [address] [address]- [address] Dec, Uncomplicated opioid dependence F11.20 [facility] [address] [address] Dec, [facility] [address] [place] [address] Nov, Uncomplicated opioid dependence F11.20 [facility] [address] [address]- [address] Nov, Other cardiac arrhythmia I49.8 [facility] [address] [place] [address] Nov, Uncomplicated opioid dependence F11.20 and Marijuana abuse F12.10 [facility] [address] [address] Nov, Uncomplicated opioid dependence F11.20 and Bradycardia R00.1 [facility] [address] [address] Nov, [facility] [address] [place] [address] Nov, Uncomplicated opioid dependence F11.20 and Marijuana abuse F12.10 [facility] [address] [place] [address] October, Uncomplicated opioid dependence F11.20 and Marijuana abuse F12.10 [facility] [id number] [place] [address]15- 3921 October, Uncomplicated opioid dependence F11.20 [facility] [id number] [place] [address]15- 49[address] October, [facility] [address] [place] [address] October, Uncomplicated opioid dependence F11.20 [facility] [id number] [place] [address] 62772- 8628 October, Uncomplicated opioid dependence F11.20 [facility] [id number] [place] [address] 02926- 2746 October, Opioid abuse F11.10 and Injection of illicit drug within last 12 months F19.90 [facility] [address] [place] [address] October, Uncomplicated opioid dependence F11.20 and Marijuana abuse F12.10 [facility] [id number] [place] [address]33- 3167 October, [facility] [address] [place] [address] October, Uncomplicated opioid dependence F11.20 and Marijuana abuse F12.10 [facility] [id number] [place] [address] 08090- 6474 Sep, Chronic obstructive pulmonary disease, unspecified COPD type J44.9 ; Cigarette nicotine dependence with other nicotine-induced disorder F17.218 and PAC (premature atrial contraction) I49.1 [facility] [address] [place] [address] Sep, Uncomplicated opioid dependence F11.20 and Marijuana abuse F12.10 [facility] [id number] [place] [address]08- 2503 Sep, [facility] [address] [address] Sep, [facility] [id number] [place] [address] 41186- 8319 Sep, [facility] [id number] [place] [address] 65888- 6898 Jun, [facility] [id number] [place] [address]- [address] Jun, [facility] [id number] [place] [address] 48265- 2681 May, Chronic obstructive pulmonary disease, unspecified COPD type J44.9 [facility] [id number] [place] [address] 90233- 9379 May, Overflow incontinence of urine N39.490 [facility] [id number] [place] [address] 62369- 4407 Apr, Bronchitis J40 ; Chronic obstructive pulmonary disease, unspecified COPD type J44.9 and Cigarette nicotine dependence with other nicotine-induced disorder F17.218 [facility] [id number] [place] [address] 40699- 7750 Apr, [facility] [id number] [place] [address] 31124- 8263 Jan, Bronchitis J40 [facility] [id number] [place] [address] 95591- 0392 Jan, Bronchitis J40 [facility] [id number] [place] [address] 42472- 7667 Dec, Bronchitis J40 ; Low back pain M54.5 and Other chronic pain G89.29 [facility] [id number] [place] [address] 71522- 9958 14 Sep, 2014 [facility] [id number] [place] [address] 32904- 4871 Sep, [facility] [id number] [place] [address] Nov, [facility] [address] [facility] [id number] [place] [address] Nov, IMMUNIZATIONS No Known Immunizations SOCIAL HISTORY Never Assessed REASON FOR VISIT PLAN OF CARE VITAL SIGNS MEDICATIONS Medication Instructions Dosage Frequency Start Date End Date Duration Status ProAir HFA 108 (90 Base) MCG/ACT Inhalation every 4 hrs 2 puffs as needed 4h Jun, Active Advair Diskus 250-50 MCG/DOSE Inhalation Twice a day 1 puff 12h Jun, Active RESULTS No Results PROCEDURES No [...]
--- OUTSIDE RECORDS SUMMARY | 2018-04-14 14:56 | XMS REPORT ---
Author Author KULDIP DUONG [facility] Address [address] [place] [address] Care Team Providers Care Cooker Sulfate Name Role Phone KULDIP DUONG Unavailable PROBLEMS Type Condition ICD9-CM Code RMC37-EP Code Onset Dates Condition Status SNOMED Code Problem Chronic obstructive pulmonary disease, unspecified COPD type J44.9 Active 17722909 Problem Cigarette nicotine dependence with other nicotine-induced disorder F17.218 Active 99088044 Problem Low back pain M54.5 Active 480903388 Problem Unspecified backache 724.5 Active 709981873 ALLERGIES Unknown Allergies SOCIAL HISTORY No smoking Hx information available PLAN OF CARE VITAL SIGNS MEDICATIONS Unknown Medications RESULTS No Results PROCEDURES No Known procedures IMMUNIZATIONS No Known Immunizations
--- OUTSIDE RECORDS SUMMARY | 2018-04-14 14:56 | XMS REPORT ---
Author Author KULDIP DUONG [facility] Address [address] [place] [address] Care Team Providers Care Boomboat Operator Name Role Phone KULDIP DUONG Unavailable PROBLEMS Type Condition ICD9-CM Code XBC95-JS Code Onset Dates Condition Status SNOMED Code Problem Chronic obstructive pulmonary disease, unspecified COPD type J44.9 Active 35776947 Problem Cigarette nicotine dependence with other nicotine-induced disorder F17.218 Active 98115899 Problem Low back pain M54.5 Active 277030056 Problem Unspecified backache 724.5 Active 554123547 ALLERGIES Unknown Allergies SOCIAL HISTORY No smoking Hx information available PLAN OF CARE VITAL SIGNS MEDICATIONS Medication [...]
--- OUTSIDE RECORDS SUMMARY | 2018-04-14 14:56 | XMS REPORT ---
Author Author ELSASANTOSH [facility] Address [address] [place] [address] Care Team Providers Care Industrial Mechanic Name Role Phone SANTOSH HUNTER Unavailable PROBLEMS Type Condition ICD9-CM Code DCT44-CB Code Onset Dates Condition Status SNOMED Code Problem Chronic obstructive pulmonary disease, unspecified COPD type J44.9 Active 80489275 Problem Low back pain M54.5 Active 344426312 Problem Other cardiac arrhythmia I49.8 Active 39383085 Problem Uncomplicated opioid dependence F11.20 Active 30177501 Problem PAC (premature atrial contraction) I49.1 Active 862462264 Problem Cigarette nicotine dependence with other nicotine-induced disorder F17.218 Active 18955764 Problem Marijuana abuse F12.10 Active 64164509 Problem Bradycardia R00.1 Active 18271685 ALLERGIES No Information ENCOUNTERS Encounter Location Date Diagnosis [facility] [address] [place] [address] Jan, [facility] [id number] [place] [address] 97957- 4546 Jan, [facility] [id number] [place] [address] 52377- 5665 Jan, Uncomplicated opioid dependence F11.20 [facility] [address] [place] [address] Jan, Uncomplicated opioid dependence F11.20 [facility] [id number] [place] [address] 43636- 9253 Dec, Chronic obstructive pulmonary disease, unspecified COPD type J44.9 and Uncomplicated opioid dependence F11.20 [facility] [id number] [place] [address] 34395- 8095 Dec, Uncomplicated opioid dependence F11.20 [facility] [address] [place] [address] Dec, Uncomplicated opioid dependence F11.20 [facility] [id number] [place] [address] 10814- 4529 Dec, Uncomplicated opioid dependence F11.20 [facility] [address] [place] [address] Dec, Uncomplicated opioid dependence F11.20 [facility] [id number] [place] [address] 09469- 8137 Dec, [facility] [address] 42401- 6901 Dec, Uncomplicated opioid dependence F11.20 [facility] [address] 34317- 7085 Dec, [facility] [address] [place] [address] Dec, Uncomplicated opioid dependence F11.20 [facility] [address] 31482- 6660 Dec, [facility] [id number] [place] [address] 13126- 6865 Dec, Uncomplicated opioid dependence F11.20 [facility] [address] 07382- 2335 Dec, Uncomplicated opioid dependence F11.20 [facility] [address] 09988- 5051 Dec, [facility] [address] [place] [address] Nov, Uncomplicated opioid dependence F11.20 [facility] [id number] [place] [address] 15472- 2498 Nov, Other cardiac arrhythmia I49.8 [facility] [address] [place] [address] Nov, Uncomplicated opioid dependence F11.20 and Marijuana abuse F12.10 [facility] [id number] [place] [address] 92729- 8917 Nov, Uncomplicated opioid dependence F11.20 and Bradycardia R00.1 [facility] [address] [place] [address] 38703- 9563 Nov, [facility] [address] [place] [address] Nov, Uncomplicated opioid dependence F11.20 and Marijuana abuse F12.10 [facility] [address] [place] [address] October, Uncomplicated opioid dependence F11.20 and Marijuana abuse F12.10 [facility] [id number] [place] [address] 52553- 2061 October, Uncomplicated opioid dependence F11.20 [facility] [address] 98149- 9399 October, [facility] [address] [place] [address] October, Uncomplicated opioid dependence F11.20 [facility] [id number] [place] [address] 83378- 9138 October, Uncomplicated opioid dependence F11.20 [facility] [id number] [place] [address] 50739- 0432 October, Opioid abuse F11.10 and Injection of illicit drug within last 12 months F19.90 [facility] [address] [place] [address] October, Uncomplicated opioid dependence F11.20 and Marijuana abuse F12.10 [facility] [id number] [place] [address] 23581- 1253 October, [facility] [address] [place] [address] October, Uncomplicated opioid dependence F11.20 and Marijuana abuse F12.10 [facility] [id number] [place] [address] 03050- 0601 Sep, Chronic obstructive pulmonary disease, unspecified COPD type J44.9 ; Cigarette nicotine dependence with other nicotine-induced disorder F17.218 and PAC (premature atrial contraction) I49.1 [facility] [address] [place] [address] Sep, Uncomplicated opioid dependence F11.20 and Marijuana abuse F12.10 [facility] [id number] [place] [address] 84737- 5754 Sep, [facility] [id number] [place] [address] 84945- 6583 Sep, [facility] [id number] [place] [address] 24689- 9676 Sep, [facility] [address] 32369- 2450 Jun, [facility] [address] 51447- 6205 Jun, [place] [address] 66710- 1582 May, Chronic obstructive pulmonary disease, unspecified COPD type J44.9 [place] [address] 87499- 5330 May, Overflow incontinence of urine N39.490 [place] [id number] [place] [address] 16321- 8003 Apr, Bronchitis J40 ; Chronic obstructive pulmonary disease, unspecified COPD type J44.9 and Cigarette nicotine dependence with other nicotine-induced disorder F17.218 [place] [id number] [place] [address] 78725- 7651 Apr, [facility] [id number] [place] [address] 63222- 8258 Jan, Bronchitis J40 [facility] [id number] [place] [address] 70909- 5566 Jan, Bronchitis J40 [facility] [address] 89912- 0872 Dec, Bronchitis J40 ; Low back pain M54.5 and Other chronic pain G89.29 [facility] [address] 87065- 7761 Sep, [facility] [address] [facility] [id number] [address] Sep, [facility] [address] [facility] [id number] [address] 6[address] Nov, [facility] [address] [facility] [id number] [address] Nov, IMMUNIZATIONS No Known Immunizations SOCIAL HISTORY Never Assessed REASON FOR VISIT SUBAB F/U PLAN OF CARE Activity Details Follow Up 1 Week Reason:SUBABFU VITAL SIGNS MEDICATIONS Unknown Medications RESULTS No Results PROCEDURES Procedure Date Ordered Result Body Site Alcohol and/or drug services October 07, 2017 INSTRUCTIONS MEDICATIONS ADMINISTERED No Known Medications MEDICAL (GENERAL) HISTORY Type Description Date Medical History Unspecified backache Medical History tips of 3rd and 4th digit on right hand cut off Hospitalization History had tips of 3rd and 4th digit on right hand cut off, got caught in dog cable
--- OUTSIDE RECORDS SUMMARY | 2018-04-14 14:56 | XMS REPORT ---
Author Author OMAYRA FINLEY [facility] Address [address] [place] [address] Care Team Providers Care Book Repairer Name Role Phone OMAYRA FINLEY Unavailable PROBLEMS Type Condition ICD9-CM Code FIB99-TO Code Onset Dates Condition Status SNOMED Code Problem Chronic obstructive pulmonary disease, unspecified COPD type J44.9 Active 37401248 Problem Low back pain M54.5 Active 856850145 Problem Other cardiac arrhythmia I49.8 Active 03001836 Problem Uncomplicated opioid dependence F11.20 Active 41173251 Problem PAC (premature atrial contraction) I49.1 Active 909425583 Problem Cigarette nicotine dependence with other nicotine-induced disorder F17.218 Active 40094625 Problem Marijuana abuse F12.10 Active 34852127 Problem Bradycardia R00.1 Active 13497192 ALLERGIES No Information ENCOUNTERS Encounter Location Date Diagnosis [facility] [address] [place] [address] Jan, [facility] [address] 95704- 6792 Jan, [facility] [address] [place] [address] Jan, [facility] [id number] [place] [address] 52948- 3536 Dec, Chronic obstructive pulmonary disease, unspecified COPD type J44.9 and Uncomplicated opioid dependence F11.20 [facility] [id number] [place] [address] 12913- 1328 Dec, Uncomplicated opioid dependence F11.20 [facility] [address] [place] [address] Dec, Uncomplicated opioid dependence F11.20 [facility] [id number] [place] [address] 06450- 0601 Dec, Uncomplicated opioid dependence F11.20 [facility] [address] [place] [address] Dec, Uncomplicated opioid dependence F11.20 [facility] [address] 52996- 4749 Dec, [facility] [address] 94100- 9736 Dec, Uncomplicated opioid dependence F11.20 [facility] [address] 20224- 0286 Dec, [facility] [address] [place] [address] Dec, Uncomplicated opioid dependence F11.20 [facility] [address] 13445- 5407 Dec, [facility] [address] 31233- 1316 Dec, Uncomplicated opioid dependence F11.20 [facility] [address] 74099- 3740 Dec, Uncomplicated opioid dependence F11.20 [facility] [address] 75138- 5611 Dec, [facility] [address] [place] [address] Nov, Uncomplicated opioid dependence F11.20 [facility] [address] 82340- 9228 Nov, Other cardiac arrhythmia I49.8 [facility] [address] [place] [address] Nov, Uncomplicated opioid dependence F11.20 and Marijuana abuse F12.10 [facility] [address] 82234- 6940 Nov, Uncomplicated opioid dependence F11.20 and Bradycardia R00.1 [facility] [address] 10215- 1497 Nov, [facility] [address] [place] [address] Nov, Uncomplicated opioid dependence F11.20 and Marijuana abuse F12.10 [facility] [address] [place] [address] October, Uncomplicated opioid dependence F11.20 and Marijuana abuse F12.10 [facility] [id number] [place] [address] 12779- 1841 October, Uncomplicated opioid dependence F11.20 [facility] [id number] [place] [address] 67359- 0349 October, [facility] [address] [place] [address] October, Uncomplicated opioid dependence F11.20 [facility] [id number] [place] [address] 20022- 7116 October, Uncomplicated opioid dependence F11.20 [facility] [address] [place] [id number] [place] [address] 81620- 2312 October, Opioid abuse F11.10 and Injection of illicit drug within last 12 months F19.90 [facility] [address] [place] [address] October, Uncomplicated opioid dependence F11.20 and Marijuana abuse F12.10 [facility] [id number] [place] [address] 18878- 0842 October, [facility] [address] [place] [address] October, Uncomplicated opioid dependence F11.20 and Marijuana abuse F12.10 [facility] [id number] [place] [address] 20554- 6900 Sep, Chronic obstructive pulmonary disease, unspecified COPD type J44.9 ; Cigarette nicotine dependence with other nicotine-induced disorder F17.218 and PAC (premature atrial contraction) I49.1 [facility] [address] [place] [address] Sep, Uncomplicated opioid dependence F11.20 and Marijuana abuse F12.10 [facility] [address] [place] [id number] [place] [address] 36182- 5331 Sep, [facility] [id number] [place] [address] 32872- 7422 Sep, [facility] [id number] [place] [address] 67214- 3939 Sep, [facility] [id number] [place] [address] 91569- 1031 Jun, [facility] [address] 42030- 1161 Jun, [facility] [address] 66596- 2665 May, Chronic obstructive pulmonary disease, unspecified COPD type J44.9 [place] [address] 99246- 7784 May, Overflow incontinence of urine N39.490 [place] [address] 88795- 8104 Apr, Bronchitis J40 ; Chronic obstructive pulmonary disease, unspecified COPD type J44.9 and Cigarette nicotine dependence with other nicotine-induced disorder F17.218 [facility] [id number] [place] [address] 58605- 2639 Apr, [facility] [id number] [place] [address] 18969- 3767 Jan, Bronchitis J40 [facility] [id number] [place] [address] 50202- 6244 Jan, Bronchitis J40 [facility] [id number] [place] [address] 63341- 7775 Dec, Bronchitis J40 ; Low back pain M54.5 and Other chronic pain G89.29 [facility] [id number] [place] [address] 80971- 8110 14 Sep, 2014 [facility] [id number] [place] [address] 94780- 7531 Sep, [facility] [address] [place] [address]- 3384 Nov, [facility] [address] [facility] [id number] [place] [address]- 1849 Nov, IMMUNIZATIONS No Known Immunizations SOCIAL HISTORY Never Assessed REASON FOR VISIT ATS Brief PLAN OF CARE VITAL SIGNS MEDICATIONS Unknown Medications RESULTS No Results PROCEDURES Procedure Date Ordered Result Body Site Alcohol and/or drug services September 21, 2017 INSTRUCTIONS MEDICATIONS ADMINISTERED No Known Medications MEDICAL (GENERAL) HISTORY Type Description Date Medical History Unspecified backache Medical History tips of 3rd and 4th digit on right hand cut off Hospitalization History had tips of 3rd and 4th digit on right hand cut off, got caught in dog cable
--- OUTSIDE RECORDS SUMMARY | 2018-04-14 14:56 | XMS REPORT ---
Author Author OMAYRA FINLEY [facility] Address [address] [place] [address] Care Team Providers Care Blocking Machine Operator Second Name Role Phone OMAYRA FINLEY Unavailable PROBLEMS Type Condition ICD9-CM Code HIV61-AJ Code Onset Dates Condition Status SNOMED Code Problem Chronic obstructive pulmonary disease, unspecified COPD type J44.9 Active 33457138 Problem Low back pain M54.5 Active 234708620 Problem Other cardiac arrhythmia I49.8 Active 17724091 Problem Uncomplicated opioid dependence F11.20 Active 64871872 Problem PAC (premature atrial contraction) I49.1 Active 273045401 Problem Cigarette nicotine dependence with other nicotine-induced disorder F17.218 Active 40277621 Problem Marijuana abuse F12.10 Active 55567712 Problem Bradycardia R00.1 Active 49363564 ALLERGIES No Information ENCOUNTERS Encounter Location Date Diagnosis [facility] [address] [place] [address] Jan, [facility] [address] 29760- [address]370 Jan, [facility] [address] [place] [address] Jan, [facility] [id number] [place] [address] 69277- 3534 Dec, Chronic obstructive pulmonary disease, unspecified COPD type J44.9 and Uncomplicated opioid dependence F11.20 [facility] [id number] [place] [address] 39349- 2735 Dec, Uncomplicated opioid dependence F11.20 [facility] [address] [place] [address] Dec, Uncomplicated opioid dependence F11.20 [facility] [id number] [place] [address] 90511- 2250 Dec, Uncomplicated opioid dependence F11.20 [facility] [address] [place] [address] Dec, Uncomplicated opioid dependence F11.20 [facility] [address] 16859- 8204 Dec, [facility] [address] 80653- 5727 Dec, Uncomplicated opioid dependence F11.20 [facility] [address] 94588- 2664 Dec, [facility] [address] [place] [address] Dec, Uncomplicated opioid dependence F11.20 [facility] [address] 86610- 2855 Dec, [facility] [address] 54459- 0793 Dec, Uncomplicated opioid dependence F11.20 [facility] [address] 28287- 6859 Dec, Uncomplicated opioid dependence F11.20 [facility] [address] 17232- 5749 Dec, [facility] [address] [place] [address] Nov, Uncomplicated opioid dependence F11.20 [facility] [address] 02380- 8679 Nov, Other cardiac arrhythmia I49.8 [facility] [address] [place] [address] Nov, Uncomplicated opioid dependence F11.20 and Marijuana abuse F12.10 [facility] [address] 01870- 8180 Nov, Uncomplicated opioid dependence F11.20 and Bradycardia R00.1 [facility] [address] 80320- 0063 Nov, [facility] [address] [place] [address] Nov, Uncomplicated opioid dependence F11.20 and Marijuana abuse F12.10 [facility] [address] [place] [address] October, Uncomplicated opioid dependence F11.20 and Marijuana abuse F12.10 [facility] [id number] [place] [address] 18223- 0407 October, Uncomplicated opioid dependence F11.20 [facility] [id number] [place] [address] 62186- 6533 October, [facility] [address] [place] [address] October, Uncomplicated opioid dependence F11.20 [facility] [id number] [place] [address] 74975- 8904 October, Uncomplicated opioid dependence F11.20 [facility] [address] [place] [id number] [place] [address] 09051- 7837 October, Opioid abuse F11.10 and Injection of illicit drug within last 12 months F19.90 [facility] [address] [place] [address] October, Uncomplicated opioid dependence F11.20 and Marijuana abuse F12.10 [facility] [id number] [place] [address] 92870- 1323 October, [facility] [address] [place] [address] October, Uncomplicated opioid dependence F11.20 and Marijuana abuse F12.10 [facility] [id number] [place] [address] 63461- 8392 Sep, Chronic obstructive pulmonary disease, unspecified COPD type J44.9 ; Cigarette nicotine dependence with other nicotine-induced disorder F17.218 and PAC (premature atrial contraction) I49.1 [facility] [address] [place] [address] Sep, Uncomplicated opioid dependence F11.20 and Marijuana abuse F12.10 [facility] [address] [place] [id number] [place] [address] 05695- 4149 Sep, [facility] [id number] [place] [address] 52408- 2268 Sep, [facility] [id number] [place] [address] 21282- 7977 Sep, [facility] [id number] [place] [address] 92350- 7657 Jun, [facility] [address] 04441- 6357 Jun, [facility] [address] 52411- 2910 May, Chronic obstructive pulmonary disease, unspecified COPD type J44.9 [place] [address] 19886- 1370 May, Overflow incontinence of urine N39.490 [place] [address] 33706- 0645 Apr, Bronchitis J40 ; Chronic obstructive pulmonary disease, unspecified COPD type J44.9 and Cigarette nicotine dependence with other nicotine-induced disorder F17.218 [facility] [id number] [place] [address] 28543- 0590 Apr, [facility] [id number] [place] [address] 27315- 2887 Jan, Bronchitis J40 [facility] [id number] [place] [address] 12648- 2116 Jan, Bronchitis J40 [facility] [id number] [place] [address] 66621- 1005 Dec, Bronchitis J40 ; Low back pain M54.5 and Other chronic pain G89.29 [facility] [id number] [place] [address] 77496- 4413 14 Sep, 2014 [facility] [id number] [place] [address] 44752- 0103 Sep, [facility] [address] [place] [address]- 8935 Nov, [facility] [address] [facility] [id number] [place] [address]- 7211 Nov, IMMUNIZATIONS No Known Immunizations SOCIAL HISTORY Never Assessed REASON FOR VISIT SOCWK Intake PLAN OF CARE VITAL SIGNS MEDICATIONS Unknown [...]
--- OUTSIDE RECORDS SUMMARY | 2018-04-14 14:56 | XMS REPORT ---
Author Author ELSASANTOSH [facility] Address [address] [place] [address] Care Team Providers Care Fighter Pilot Name Role Phone SANTOSH HUNTER Unavailable PROBLEMS Type Condition ICD9-CM Code UOA17-VW Code Onset Dates Condition Status SNOMED Code Problem Chronic obstructive pulmonary disease, unspecified COPD type J44.9 Active 77276493 Problem Low back pain M54.5 Active 002443739 Problem Other cardiac arrhythmia I49.8 Active 70834190 Problem Uncomplicated opioid dependence F11.20 Active 66674118 Problem PAC (premature atrial contraction) I49.1 Active 248474047 Problem Cigarette nicotine dependence with other nicotine-induced disorder F17.218 Active 55116135 Problem Marijuana abuse F12.10 Active 64266558 Problem Bradycardia R00.1 Active 72640975 ALLERGIES No Information ENCOUNTERS Encounter Location Date Diagnosis [facility] [address] [place] [address] Jan, [facility] [id number] [place] [address]72[address]557 Jan, [facility] [id number] [place] [address]240- 5578 Jan, Uncomplicated opioid dependence F11.20 [facility] [address] [place] [address] Jan, Uncomplicated opioid dependence F11.20 [facility] [id number] [place] [address] 39661[address] 8385 Dec, Chronic obstructive pulmonary disease, unspecified COPD type J44.9 and Uncomplicated opioid dependence F11.20 [facility] [id number] [place] [address]281[address] 9203 Dec, Uncomplicated opioid dependence F11.20 [facility] [address] [place] [address] Dec, Uncomplicated opioid dependence F11.20 [facility] [id number] [place] [address] 62946- 3454 Dec, Uncomplicated opioid dependence F11.20 [facility] [address] [place] [address] Dec, Uncomplicated opioid dependence F11.20 [facility] [id number] [place] [address] [phone]- 9358 Dec, [facility] [address] [address] Dec, Uncomplicated opioid dependence F11.20 [facility] [address] [address] Dec, [facility] [address] [place] [address] Dec, Uncomplicated opioid dependence F11.20 [facility] [address] [address] Dec, [facility] [id number] [place] [address] 93980- 0323 Dec, Uncomplicated opioid dependence F11.20 [facility] [address] 65[address] 3673 Dec, Uncomplicated opioid dependence F11.20 [facility] [address] [address] Dec, [facility] [address] [place] [address] Nov, Uncomplicated opioid dependence F11.20 [facility] [id number] [place] [address] 31938- [phone] Nov, Other cardiac arrhythmia I49.8 [facility] [address] [place] [address] Nov, Uncomplicated opioid dependence F11.20 and Marijuana abuse F12.10 [facility] [id number] [place] [address] 09402- 0314 Nov, Uncomplicated opioid dependence F11.20 and Bradycardia R00.1 [facility] [id number] [place] [address] 42699- 5541 Nov, [facility] [address] [place] [address] Nov, Uncomplicated opioid dependence F11.20 and Marijuana abuse F12.10 [facility] [address] [place] [address] October, Uncomplicated opioid dependence F11.20 and Marijuana abuse F12.10 [facility] [id number] [place] [address] 65097- 5221 October, Uncomplicated opioid dependence F11.20 [facility] [address] [address]2 October, [facility] [address] [place] [address] October, Uncomplicated opioid dependence F11.20 [facility] [id number] [place] [address] 80967- 7630 October, Uncomplicated opioid dependence F11.20 [facility] [id number] [place] [address] 43946- 0376 October, Opioid abuse F11.10 and Injection of illicit drug within last 12 months F19.90 [facility] [address] [place] [address] October, Uncomplicated opioid dependence F11.20 and Marijuana abuse F12.10 [facility] [id number] [place] [address] 48862- 4440 October, [facility] [address] [place] [address] October, Uncomplicated opioid dependence F11.20 and Marijuana abuse F12.10 [facility] [id number] [place] [address] 76022- 0828 Sep, Chronic obstructive pulmonary disease, unspecified COPD type J44.9 ; Cigarette nicotine dependence with other nicotine-induced disorder F17.218 and PAC (premature atrial contraction) I49.1 [facility] [address] [place] [address] Sep, Uncomplicated opioid dependence F11.20 and Marijuana abuse F12.10 [facility] [id number] [place] [address] 97370- 1358 Sep, [facility] [id number] [place] [address] 76[address]- 8567 Sep, [facility] [id number] [place] [address] 81658- 6207 Sep, [facility] [address] [address] Jun, [facility] [address] [address] Jun, [place] [address] [address] May, Chronic obstructive pulmonary disease, unspecified COPD type J44.9 [place] [address] [address] May, Overflow incontinence of urine N39.490 [place] [id number] [place] [address]26[address] 60[address] Apr, Bronchitis J40 ; Chronic obstructive pulmonary disease, unspecified COPD type J44.9 and Cigarette nicotine dependence with other nicotine-induced disorder F17.218 [place] [id number] [place] [address] 34979- 0647 Apr, [facility] [id number] [place] [address] 73280- 2068 Jan, Bronchitis J40 [facility] [id number] [place] [address] 93216- 9855 Jan, Bronchitis J40 [facility] [address] [address] Dec, Bronchitis J40 ; Low back pain M54.5 and Other chronic pain G89.29 [facility] [address] 7[address] Sep, [facility] [address] [facility] [id number] [address] Sep, 2014 [facility] [address] [facility] [id number] [address] Nov, [facility] [address] [facility] [id number] [address] Nov, IMMUNIZATIONS No Known Immunizations SOCIAL HISTORY Never Assessed REASON FOR VISIT Formal assesment PLAN OF CARE Activity Details 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
--- OUTSIDE RECORDS SUMMARY | 2018-04-14 14:57 | XMS REPORT ---
Author KULDIP Ye [facility] eClinicalWorks Address Unknown Phone Unavailable Care Team Providers Care General Counselor Name Role Phone KULDIP DUONG CP Unavailable Allergies, Adverse Reactions, Alerts Substance Reaction Event Type N.K.D.A. Info Not Available Non Drug Allergy Problems Problem Type Condition Code Onset Dates Condition Status Problem Unspecified backache 724.5 Active Assessment Bronchitis J40 Active Problem Low back pain M54.5 Active Assessment Low back pain M54.5 Active Assessment Other chronic pain G89.29 Active Medications Medication Code System Code Instructions Start Date End Date Status Dosage MS Contin [facility] [address]-55 30 MG Orally 3 times a day 1 tablet Keflex [facility] [address]-41 500 MG Orally Four times a day December 29, 2015 Jan 05, 2016 1 capsule Procedures Procedure Coding System Code Date CHEST X-RAY CPT-4 76903 December 29, 2015 Office Visit, New Pt., Level 3 CPT-4 41545 December 29, 2015 MEASURE BLOOD OXYGEN LEVEL CPT-4 36712 December 29, 2015 Vital Signs Date/Time: December 29, 2015 Cardiac Monitoring Heart Rate 98 bpm Weight 120 lbs Height 68 in BMI 18.24 Index Oximetry 92 % Blood Pressure Diastolic 88 mmHg Blood Pressure Systolic 122 mmHg Results No Known Results Summary Purpose eClinicalWorks Submission
--- OUTSIDE RECORDS SUMMARY | 2018-04-14 14:57 | XMS REPORT ---
Author Author KULDIP DUONG Organization [facility] Address [address] [place] [address] Care Team Providers Care Career Orientation Teacher Name Role Phone KULDIP DUONG Unavailable PROBLEMS Type Condition ICD9-CM Code OKO49-SA Code Onset Dates Condition Status SNOMED Code Problem Chronic obstructive pulmonary disease, unspecified COPD type J44.9 Active 01217219 Problem Cigarette nicotine dependence with other nicotine-induced disorder F17.218 Active 16845097 Assessment Bronchitis J40 Apr, Active 76975549 Problem Low back pain M54.5 Active 260938687 Problem Unspecified backache 724.5 Active 673981527 ALLERGIES Substance Reaction Event Type Date Status N.K.D.A. Unknown Non Drug Allergy Apr, Unknown SOCIAL HISTORY No smoking Hx information available PLAN OF CARE VITAL SIGNS Height 68 in 2016-04-22 Weight 116 lbs 2016-04-22 Heart Rate 98 bpm 2016-04-22 Respiratory Rate 28 2016-04-22 BMI 17.64 kg/m2 2016-04-22 Blood pressure systolic 102 mmHg 2016-04-22 Blood pressure diastolic 80 mmHg 2016-04-22 MEDICATIONS Medication Instructions Dosage Frequency Start Date End Date Duration Status Doxycycline Hyclate 100 MG Orally Twice a day 1 tablet 12h Apr, Apr, 07 days Active PredniSONE 20 mg Orally Once a day 2 qd 3d, 1 qd 4 d 24h Apr, Apr, 07 days Active Chantix Starting Month Noman 0.5 MG X 11 & 1 MG X 42 as directed Apr, Active RESULTS No Results PROCEDURES Procedure Date Ordered Related Diagnosis Body Site Office Visit, Est Pt., Level 3 Apr 22, 2016 IMMUNIZATIONS No Known Immunizations
--- OUTSIDE RECORDS SUMMARY | 2018-04-14 14:57 | XMS REPORT ---
Author Author KULDIP DUONG Organization [facility] Address [address] [place] [address] Care Team Providers Care Medical Records Director Name Role Phone KULDIP DUONG Unavailable PROBLEMS Type Condition ICD9-CM Code KCP26-TO Code Onset Dates Condition Status SNOMED Code Problem Chronic obstructive pulmonary disease, unspecified COPD type J44.9 Active 68115371 Problem Cigarette nicotine dependence with other nicotine-induced disorder F17.218 Active 55618947 Problem Low back pain M54.5 Active 252156502 Problem Unspecified backache 724.5 Active 031047027 ALLERGIES Substance Reaction Event Type Date Status N.K.D.A. Unknown Non Drug Allergy May, Unknown SOCIAL HISTORY No smoking Hx information available PLAN OF CARE Activity Details Follow Up prn Reason: VITAL SIGNS Height 68 in 2016-05-25 Weight 125.6 lbs 2016-05-25 Temperature 98.3 degrees Fahrenheit 2016-05-25 Heart Rate 88 bpm 2016-05-25 Respiratory Rate 22 2016-05-25 BMI 19.10 kg/m2 2016-05-25 Blood pressure systolic 128 mmHg 2016-05-25 Blood pressure diastolic 56 mmHg 2016-05-25 MEDICATIONS Unknown Medications RESULTS Name Result Date Reference Range PSA 2016-05-25 Prostate Specific Ag, Serum 1.1 0.0-4.0 UA LONG DIP (IN HOUSE) 2016-05-25 Lot # [id number] Exp date 04/2017 Clarity clear Color yellow Odor none GLU negative JERMAINE negative KET negative SG >=1.030 BLO trace-lysed pH 5.5 Protein negative URO 0.2 E.U./dL NIT negative DES negative Lot # Exp date PROCEDURES Procedure Date Ordered Related Diagnosis Body Site ASSAY OF PSA, TOTAL May 25, 2016 URINALYSIS, AUTO, W/O SCOPE May 25, 2016 Office Visit, Est Pt., Level 4 May 25, 2016 VENIPUNCT, ROUTINE* May 25, 2016 IMMUNIZATIONS No Known Immunizations
--- OUTSIDE RECORDS SUMMARY | 2018-04-14 14:57 | XMS REPORT ---
Author Author KULDIP DUONG [facility] Address [address] [place] [address] Care Team Providers Care Medical Claims Manager Name Role Phone KULDIP DUONG Unavailable PROBLEMS Type Condition ICD9-CM Code PVI32-GS Code Onset Dates Condition Status SNOMED Code Problem Chronic obstructive pulmonary disease, unspecified COPD type J44.9 Active 22822998 Problem Cigarette nicotine dependence with other nicotine-induced disorder F17.218 Active 61203264 Problem Low back pain M54.5 Active 019782730 Problem Unspecified backache 724.5 Active 083508974 ALLERGIES Unknown Allergies SOCIAL HISTORY No smoking Hx information available PLAN OF CARE VITAL SIGNS MEDICATIONS Unknown Medications RESULTS No Results PROCEDURES Procedure Date Ordered Related Diagnosis Body Site PULMONARY FUNCTION TEST (IN-HOUSE) 2016-06-01 N/A RESPIRATORY FLOW VOLUME LOOP Jun 01, 2016 NEB/MDI DEMO Jun 01, 2016 SPRIOMETRY CHALLENGE Jun 01, 2016 SPIROMETRY Jun 01, 2016 IMMUNIZATIONS No Known Immunizations
--- OUTSIDE RECORDS SUMMARY | 2018-04-14 14:57 | XMS REPORT | Continuity of Care Document ---
Author Author [facility] Address Unknown Phone Unavailable Allergies Active Description Code Type Severity Reaction Onset Reported/Identified Relationship to Patient Clinical Status Yes No Allergy Information Available [id number] Drug Allergy Unknown N/A 2017 Medications There is no data. Problems Date Dx Coded Attending Type Code Diagnosis Diagnosed By 11/14/2013 YOGESH HAM APRN 724.5 BACKACHE UNSPECIFIED 02/09/2018 BAIMA, ROMMEL L RN REGISTRY Ot I49.1 ATRIAL PREMATURE DEPOLARIZATION 02/09/2018 BAIMA, ROMMEL L RN REGISTRY Ot I49.3 VENTRICULAR PREMATURE DEPOLARIZATION 02/09/2018 BAIMA, ROMMEL L RN REGISTRY Ot R06.09 OTHER FORMS OF DYSPNEA 02/09/2018 BAIMA, ROMMEL L RN REGISTRY Ot R94.31 ABNORMAL ELECTROCARDIOGRAM [ECG] [EKG] 02/13/2018 BAIMA, ROMMEL L RN REGISTRY Ot I49.1 ATRIAL PREMATURE DEPOLARIZATION 02/13/2018 BAIMA, ROMMEL L RN REGISTRY Ot I49.3 VENTRICULAR PREMATURE DEPOLARIZATION 02/13/2018 BAIMA, ROMMEL L RN REGISTRY Ot R06.09 OTHER FORMS OF DYSPNEA 02/13/2018 BAIMA, ROMMEL L RN REGISTRY Ot R94.31 ABNORMAL ELECTROCARDIOGRAM [ECG] [EKG] 02/15/2018 BAIMA, ROMMEL L RN REGISTRY Ot I49.1 ATRIAL PREMATURE DEPOLARIZATION 02/15/2018 BAIMA, ROMMEL L RN REGISTRY Ot I49.3 VENTRICULAR PREMATURE DEPOLARIZATION 02/15/2018 BAIMA, ROMMEL L RN REGISTRY Ot R06.09 OTHER FORMS OF DYSPNEA 02/15/2018 BAIMA, ROMMEL L RN REGISTRY Ot R94.31 ABNORMAL ELECTROCARDIOGRAM [ECG] [EKG] 02/15/2018 BAIMA, ROMMEL L RN REGISTRY Ot I49.1 ATRIAL PREMATURE DEPOLARIZATION 02/15/2018 BAIMA, ROMMEL L RN REGISTRY Ot I49.3 VENTRICULAR PREMATURE DEPOLARIZATION 02/15/2018 BAIMA, ROMMEL L RN REGISTRY Ot R06.09 OTHER FORMS OF DYSPNEA 02/15/2018 BAIMA, ROMMEL L RN REGISTRY Ot R94.31 ABNORMAL ELECTROCARDIOGRAM [ECG] [EKG] 04/07/2018 BAIMA, ROMMEL L RN REGISTRY Ot I49.1 ATRIAL PREMATURE DEPOLARIZATION 04/07/2018 BAIMA, ROMMEL L RN REGISTRY Ot I49.3 VENTRICULAR PREMATURE DEPOLARIZATION 04/07/2018 BAIMA, ROMMEL L RN REGISTRY Ot R06.09 OTHER FORMS OF DYSPNEA 04/07/2018 BAIMA, ROMMEL L RN REGISTRY Ot R94.31 ABNORMAL ELECTROCARDIOGRAM [ECG] [EKG] 04/07/2018 BAIMA, ROMMEL L RN REGISTRY Ot I49.1 ATRIAL PREMATURE DEPOLARIZATION 04/07/2018 BAIMA, ROMMEL L RN REGISTRY Ot I49.3 VENTRICULAR PREMATURE DEPOLARIZATION 04/07/2018 BAIMA, ROMMEL L RN REGISTRY Ot R06.09 OTHER FORMS OF DYSPNEA 04/07/2018 BAIMA, ROMMEL L RN REGISTRY Ot R94.31 ABNORMAL ELECTROCARDIOGRAM [ECG] [EKG] 04/07/2018 BAIMA, ROMMEL L RN REGISTRY Ot I49.1 ATRIAL PREMATURE DEPOLARIZATION 04/07/2018 BAIMA, ROMMEL L RN REGISTRY Ot I49.3 VENTRICULAR PREMATURE DEPOLARIZATION 04/07/2018 BAIMA, ROMMEL L RN REGISTRY Ot R06.09 OTHER FORMS OF DYSPNEA 04/07/2018 BAIMA, ROMMEL L RN REGISTRY Ot R94.31 ABNORMAL ELECTROCARDIOGRAM [ECG] [EKG] 04/07/2018 BAIMA, ROMMEL L RN REGISTRY Ot I49.1 ATRIAL PREMATURE DEPOLARIZATION 04/07/2018 BAIMA, ROMMEL L RN REGISTRY Ot I49.3 VENTRICULAR PREMATURE DEPOLARIZATION 04/07/2018 BAIMA, ROMMEL L RN REGISTRY Ot R06.09 OTHER FORMS OF DYSPNEA 04/07/2018 BAIMA, ROMMEL L RN REGISTRY Ot R94.31 ABNORMAL ELECTROCARDIOGRAM [ECG] [EKG] 04/14/2018 BAIMA, ROMMEL L RN REGISTRY Ot I49.1 ATRIAL PREMATURE DEPOLARIZATION 04/14/2018 BAIMA, ROMMEL L RN REGISTRY Ot I49.3 VENTRICULAR PREMATURE DEPOLARIZATION 04/14/2018 BAIMA, ROMMEL L RN REGISTRY Ot R06.09 OTHER FORMS OF DYSPNEA 04/14/2018 BAIMA, ROMMEL L RN REGISTRY Ot R94.31 ABNORMAL ELECTROCARDIOGRAM [ECG] [EKG] 04/14/2018 BAIMA, ROMMEL L RN REGISTRY Ot I49.1 ATRIAL PREMATURE DEPOLARIZATION 04/14/2018 BAIMAROMMEL L RN REGISTRY Ot I49.3 VENTRICULAR PREMATURE DEPOLARIZATION 04/14/2018 BAIMA, ROMMEL L RN REGISTRY Ot R06.09 OTHER FORMS OF DYSPNEA 04/14/2018 BAIMAROMMEL L RN REGISTRY Ot R94.31 ABNORMAL ELECTROCARDIOGRAM [ECG] [EKG] 04/14/2018 BAIMA, ROMMEL L RN REGISTRY Ot I49.1 ATRIAL PREMATURE DEPOLARIZATION 04/14/2018 BAIMA, ROMMEL L RN REGISTRY Ot I49.3 VENTRICULAR PREMATURE DEPOLARIZATION 04/14/2018 BAIMA, ROMMEL L RN REGISTRY Ot R06.09 OTHER FORMS OF DYSPNEA 04/14/2018 BAIMA, ROMMEL L RN REGISTRY Ot R94.31 ABNORMAL ELECTROCARDIOGRAM [ECG] [EKG] 04/14/2018 BAIMAROMMEL L RN REGISTRY Ot I49.1 ATRIAL PREMATURE DEPOLARIZATION 04/14/2018 BAIMA, ROMMEL L RN REGISTRY Ot I49.3 VENTRICULAR PREMATURE DEPOLARIZATION 04/14/2018 BAIMA, ROMMEL L RN REGISTRY Ot R06.09 OTHER FORMS OF DYSPNEA 04/14/2018 BAIMAVIRGINIEROMMEL L RN REGISTRY Ot R94.31 ABNORMAL ELECTROCARDIOGRAM [ECG] [EKG] Procedures There is no data. Results Test Result Range Prostate-Specific Ag, Serum - 05/25/16 16:03 Prostate Specific Ag, Serum 1.1 ng/mL 0.0-4.0 TSH - 01/11/18 09:39 TSH 2.68 mIU/L 0.40-4.50 PDM - AMPHETAMINES W/ REFLEX d/l ISOMERS - 01/30/18 00:00 Prescribed Drug 1 Buprenorphine NRG COMMENT NRG Amphetamine NEGATIVE ng/mL <250 medMATCH Amphetamine CONSISTENT NRG Methamphetamine NEGATIVE ng/mL <250 medMATCH Methamphetamine CONSISTENT NRG PDM - AMPHETAMINES W/ REFLEX d/l ISOMERS - 03/31/18 16:36 Prescribed Drug 1 Buprenorphine NRG COMMENT NRG Amphetamine NEGATIVE ng/mL <250 medMATCH Amphetamine CONSISTENT NRG Methamphetamine NEGATIVE ng/mL <250 medMATCH Methamphetamine CONSISTENT NRG Encounters ACCT No. Visit Date/Time Discharge Status Pt. Type Provider Facility Loc./Unit Complaint [id number] 11/14/2013 10:27:00 11/14/2013 23:59:59 CLS Outpatient YOGESH HAM APRN [id number] 05/26/2016 10:06:00 Document Registration [id number] 02/14/2018 08:54:00 02/14/2018 23:59:59 CLS Outpatient ROMMEL WEBER RN REGISTRY [facility] CARD ABNORMAL EKG,PVCS, DYSNPEA [id number] 02/07/2018 09:14:00 02/07/2018 23:59:59 CLS Outpatient ROMMEL WEBER [facility] CARD ABNORMAL EKG,PAC, PVCS,DYSPNEA [id number] 04/14/2018 14:44:00 ACT Outpatient CRISTINA LINDA FACC, GABRIELLE OLMEDO CCDS [facility] ABN STRESS TEST [id number] 02/14/2018 11:07:00 Document Registration [id number] 03/31/2018 15:30:00 03/31/2018 23:59:59 CLS Outpatient RHODA LINDA, KULDIP [facility] [id number] 03/31/2018 16:00:00 Document Registration [id number] 01/30/2018 16:00:00 Document Registration [id number] 01/11/2018 08:30:00 Document Registration
--- OUTSIDE RECORDS SUMMARY | 2018-04-14 14:57 | XMS REPORT ---
Author KULDIP Ye Organization [employer] Address Unknown Phone Unavailable Care Team Providers Care Telemarketing Fundraiser Name Role Phone KULDIP DUONG CP Unavailable Allergies No Known Allergies Problems Problem Type Condition Code Onset Dates Condition Status Problem Unspecified backache 724.5 Active Problem Low back pain M54.5 Active Medications No Known Medications Results No Known Results Summary Purpose eClinicalWorks Submission
--- OUTSIDE RECORDS SUMMARY | 2018-04-14 14:57 | XMS REPORT ---
Author KULDIP Ye Organization [employer] Address Unknown Phone Unavailable Care Team Providers Care Yeast Cake Cutter Name Role Phone KULDIP DUONG CP Unavailable Allergies No Known Allergies Problems Problem Type Condition Code Onset Dates Condition Status Problem Unspecified backache 724.5 Active Assessment Bronchitis J40 Active Problem Low back pain M54.5 Active Medications No Known Medications Results No Known Results Summary Purpose eClinicalWorks Submission
[2018-04-14] MEDS ORDERED: NS IV 1000 ML 1,000 ML IV SCH ×2 (15:00→15:53)
[2018-04-14 15:11] LABS: HEMOGLOBIN 16.1 G/DL (13.3-17.7); MEAN PLATELET VOLUME 10.1 FL (7.4-10.4); RED BLOOD COUNT 5.25 10^6/uL (4.35-5.85); WHITE BLOOD COUNT 9.4 10^3/uL (4.3-11.0)
[2018-04-14] MEDS ORDERED: BUPR1FIL3 SL (15:15)
[2018-04-14] MEDS ORDERED: ASPI-586 PO (15:15)
[2018-04-14] MEDS ORDERED: RT-ALBUINH IH (15:15)
[2018-04-14] MEDS ORDERED: ATOR20TA66 PO (15:15)
[2018-04-14] MEDS ORDERED: MIDAZOLAM 5 MG/5 ML (VERSED) VIAL ONE (15:16)
[2018-04-14] MEDS ORDERED: fentaNYL INJECTION 100 MCG/2 ML AMP ONE (15:16)
[2018-04-14 15:23] LABS: INR 1.2 (0.8-1.4); PROTHROMBIN TIME PATIENT 15.1 SEC (12.2-14.7)
[2018-04-14 15:30] LABS: ALANINE AMINOTRANSFERASE 68 U/L (0-55); ALBUMIN 4.3 GM/DL (3.2-4.5); ALKALINE PHOSPHATASE 71 U/L (40-136); BILIRUBIN,TOTAL 0.6 MG/DL (0.1-1.0); BUN/CREATININE RATIO 23; CARBON DIOXIDE 25 MMOL/L (21-32); CHLORIDE 103 MMOL/L (98-107); CHOLESTEROL 107 MG/DL (< 200); CREATININE SERUM 0.86 MG/DL (0.60-1.30); GFR ESTIMATED > 60; GLUCOSE 86 MG/DL (70-105); HDL CHOLESTEROL 30 MG/DL (40-60); POTASSIUM 4.7 MMOL/L (3.6-5.0); SODIUM 138 MMOL/L (135-145); TOTAL PROTEIN 8.3 GM/DL (6.4-8.2); TRIGLYCERIDES 64 MG/DL (<150); VLDL CHOLESTEROL 13 MG/DL (5-40)
--- NOTE | 2018-04-14 15:53 | Cardiac Procedure Note-CS/ASA ---
Pre-Procedure Note Pre-Op Procedure Note H&P Reviewed The H&P was reviewed, patient examined and no changes noted. Date H&P Reviewed: Apr 14, 2018 Time H&P Reviewed: 15:10 Conscious Sedation Pre-Proced Time 15:10 ASA Score 3 For ASA 3 and 4: Consider anesthesia and medical clearance. Also, for patients with a history of failed moderate sedation consider anesthesia. Airway Lungs Heart ASA score ASA 1: a normal healthy patient ASA 2: a patient with a mild systemic disease (mid diabetes, controlled hypertension, obesity ASA 3: a patient with a severe systemic disease that limits activity (angina , COPD, prior Myocardial infarction) ASA 4: a patient with an incapacitating disease that is a constant threat to life (CHF, renal failure) ASA 5: a moribund patient not expected to survive 24 hrs. (ruptured aneurysm) ASA 6: a declared brain patient whose organs are being harvested. For emergent operations, add the letter E after the classification Mallampati Classification Grade 2 Sedation Plan Analgesia, Amnesia, Plan communicated to team members, Discussed options with patient/fam, Discussed risks with patient/fam The patient is an appropriate candidate to undergo the planned procedure, sedation, and anesthesia. The patient immediately re-assessed prior to indication. GABRIELLE EVANS MD FACP FAC CCDS Apr 14, 2018 15:52
[2018-04-14] MEDS ORDERED: METO-351 PO (15:55)
--- NOTE | 2018-04-14 15:56 | Discharge Inst-Post CATH ---
Discharge Inst-CATH Post Cardiac Cath D/C Inst Follow Up/Plan F/u with Dr Chicas in 2 weeks CARDIAC CATH DISCHARGE INSTRUCTIONS *Hold Metformin for 48 hours post heart cath. ACTIVITY * Go Home directly and rest. * Limit activity of the leg (or wrist if it was used) for 7 days including aerobics, swimming, jogging, bicycling, etc. * Restrict stair-climbing for 7 days if possible, if not, climb up with your non -cath leg, then bring together on the same step. * Avoid lifting, pushing, pulling or excessive movement of the affected extremity for 7 days. * Customary sexual activity may be resumed after 2 days-use caution not to use a position that strains or causes pain to the affected extremity. * No driving for 24 hours. * NO SMOKING. * Avoid straining for bowel movements for 7 days. * Gentle walking on level ground is allowed. * Returning to work will depend on the type of procedure and the results. Your doctor will discuss this with you. CALL YOUR DOCTOR FOR ANY OF THE FOLLOWING: *If bleeding from the puncture site occurs- Apply gentle pressure to site with clean cloth and call your doctor or EMS. * If a knot or lump forms under the skin, increases in size, or causes pain. * If bruising appears to be worsening or moving further down your leg instead of disappearing. * Temperature above 101 F. CARE OF YOUR GROIN INCISION; * Bruising or purple discoloration of the skin near the puncture site is common. * You may shower only, no bathtub bathing for 5 days. Be careful to avoid slipping as your leg may feel stiff. * If a closure device was used on your femoral artery, please see the attached guide regarding care of the device and your leg. * Leave the dressing on, until removed by office staff. CARE OF YOUR WRIST INCISION; * Bruising or purple discoloration of the skin near the puncture site is common. * You may shower. * DO NOT submerge wrist. * Leave dressing on, until removed by office staff.. GABRIELLE CHICAS MD [facility] CCDS Apr 14, 2018 15:56
--- NOTE | 2018-04-14 15:56 | Discharge Inst-Cardiology ---
Discharge Inst-Cardiac Discharge Medications New Medications: Metoprolol Succinate (Toprol Xl) 25 Mg Tab.er.24h 25 MG PO DAILY, #30 TAB 2 Refills Continued Medications: Albuterol Sulfate (Proair Hfa) 1 Puff Puff 2 PUFF IH Q4H PRN for SHORTNESS OF BREATH, PUFF 1 PUFF = 90 MCG Aspirin (Aspir 81) 81 Mg Tablet.dr 81 MG PO DAILY, TAB Atorvastatin Calcium (Atorvastatin Calcium) 20 Mg Tablet 20 MG PO HS, TAB Buprenorphine HCl/Naloxone HCl (Suboxone 8 mg-2 mg Sl Film) 1 Each Film 2 EACH SL DAILY, FILM Patient Instructions Patient Instructions: No smoking Orders-Post D/C & Referrals Pneu Vac Indicated: Yes GABRIELLE EVANS MD FACP FACC CCDS Apr 14, 2018 15:56
[2018-04-14] MEDS ORDERED: PATIENT MAY USE OWN MEDS, ALL PO SCH (16:00)
--- NOTE | 2018-04-14 18:37 | OPERATIVE REPORT ---
DATE OF SERVICE: 04/14/2018 CARDIAC CATHETERIZATION REPORT INDICATIONS: The patient is a 57-year-old gentleman with multiple coronary artery disease risk factors, who has symptoms of shortness of breath and is known to have frequent isolated premature ventricular contractions and has had an abnormal stress test that was indicative of basal inferior ischemia. Cardiac catheterization was recommended. Informed consent was obtained. DESCRIPTION OF PROCEDURE: He was brought to the cardiac catheterization laboratory in a fasting state. Right groin was prepared and draped in the usual sterile fashion. Lidocaine 1% was used for local anesthesia. Modified Seldinger technique was used to advance a 5-[place] sheath in the right femoral artery. A 5-[place] JL4 catheter was used for left coronary angiography, 5-[place] JR4 catheter was used for right coronary angiography, 5-[place] pigtail catheter was used for left heart catheterization and left ventricular angiography. A 5-[place] pigtail catheter was used to pullback the aortic arch and aortic arch angiography was performed. Aortic arch angiography was performed because the advancement of catheters was suggestive of unraveling of the aortic arch. At the end of the procedure, angiography of the right femoral artery was carried out through the sheath. Mynx was used to achieve hemostasis. He tolerated the procedure well. HEMODYNAMICS: Left ventricular end-diastolic pressure following coronary angiography was 17 mmHg. There is no significant pressure gradient on pullback across the aortic valve. Ascending aortic pressure was 95/61 with a mean of 70 mmHg. LEFT VENTRICULAR ANGIOGRAPHY: Left ventricular angiography was carried out in the right anterior oblique projection. Global left ventricular systolic function is normal. Left ventricular ejection fraction is approximately 65%. There does not appear to be significant mitral regurgitation. CORONARY ANGIOGRAPHY: There is a coronary calcification present involving all coronary arteries. There is a diffuse moderate disease of all left coronary vessels. There is no significant focal stenosis of the left main coronary artery, left anterior descending or the left circumflex arteries. There are left to right collaterals. Right coronary artery is occluded in its proximal portion and is heavily collateralized from the left side and faintly collateralized from the right side (antegrade collaterals). 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 There is calcification of the aortic knob. The neck arteries, to the extent seen, do not exhibit significant stenosis. There does not appear to be significant dilatation or dissection of the ascending thoracic or descending aorta, in these views. CONCLUSIONS: 1. Coronary artery disease, primarily consisting of chronic total proximal occlusion of right coronary artery with left to left and right to left collaterals. 2. The other coronary vessels have moderate diffuse disease. 3. Normal global left ventricular systolic function with ejection fraction 65%. 4. Elevated left ventricular end diastolic pressure. 5. No significant mitral regurgitation. DISCUSSION AND RECOMMENDATIONS: Based on results of the study, it appears appropriate to continue a conservative approach. Risk factor modification has been reviewed. We have advised him to quit smoking immediately and completely. Therapy with aspirin, statin, and a beta bhumi is advised. Outpatient followup is advised. Job ID: [id number] DocumentID: [id number] Dictated Date: 04/14/2018 15:50:41 Talent Manager Date: 04/14/2018 18:37:08 Dictated By: GABRIELLE EVANS MD, MA, FACP, FACC, MTDD
== END 2018-04-14 21:00 | disposition home or self-care (01) ==
LOC: CATH 14:44 → 4TH 16:00 → CATH 21:00
PROVIDERS: ATTEND Internal Medicine Cardiovascular Disease
DX: I25.10 Atherosclerotic heart disease of native coronary artery without angina pectoris (principal); R06.02 Shortness of breath; I49.3 Ventricular premature depolarization; Z72.0 Tobacco use; E75.5 Other lipid storage disorders; J44.9 Chronic obstructive pulmonary disease, unspecified; Z82.49 Family history of ischemic heart disease and other diseases of the circulatory system
CPT/HCPCS: 36221; 36415; 80053; 80061; 85027; 85610; 85730; 87081; 93458

== ENCOUNTER 2019-04-11 15:56 | Inpatient (IN) | payer SELFPAY ==
[~2019-04-11] VITALS: Ht 173 cm; Wt 65.2 kg
[2019-04-11] VITALS (12 sets, daily range): BP systolic 76–139; BP diastolic 56–82
[~2019-04-11 15:56] MED LIST changes: +ASPI-586 PO; +ATOR20TA66 PO; +BUPR1FIL3 SL; -CATHETER FLUSH 10 ML SYR IV PRN; +METO-351 PO; -REGADENOSON 0.4 MG/5 ML SYR (LEXISCAN) IV ONE; +RT-ALBUINH IH
[2019-04-11] MEDS ORDERED: ASPIRIN 81 MG CHEW (CHILDREN'S ASA) PO ONE ×2 (16:15→20:00)
[2019-04-11 16:29] LABS: BASOPHILS % (AUTO) 0 % (0-10); EOSINOPHILS % (AUTO) 0 % (0-10); HEMATOCRIT 46 % (40-54); HEMOGLOBIN 15.2 G/DL (13.3-17.7); LYMPHOCYTES # (AUTO) 1.2 X 10^3 (1.0-4.0); LYMPHOCYTES % (AUTO) 14 % (12-44); MEAN CORPUSCULAR HEMOGLOBIN 31 PG (25-34); MEAN CORPUSCULAR HGB CONC 33 G/DL (32-36); MEAN CORPUSCULAR VOLUME 94 FL (80-99); MONOCYTES # (AUTO) 1.2 X 10^3 (0.0-1.0); MONOCYTES % (AUTO) 14 % (0-12); NEUTROPHILS # (AUTO) 6.4 X 10^3 (1.8-7.8); NEUTROPHILS % (AUTO) 72 % (42-75); PLATELET COUNT 171 10^3/uL (130-400); RED CELL DISTRIBUTION WIDTH 12.7 % (10.0-14.5); WHITE BLOOD COUNT 8.9 10^3/uL (4.3-11.0)
[2019-04-11] MEDS ORDERED: methylPREDNISolone 125 MG (Solu-MEDROL) VIAL IVP ONE (16:30)
[2019-04-11] MEDS ORDERED: RT-ALBUTEROL/IPRATROPIUM 3 ML (DUONEB) VIAL INH ONE (16:30)
--- NOTE | 2019-04-11 16:39 | ED Respiratory ---
General Chief Complaint: Respiratory Problems Stated Complaint: SOB Nursing Triage Note: PT TO RM [address] GO'S OFFICE WITH CC OF SOB, 74% ON RA Source: patient Exam Limitations: no limitations History of Present Illness Date Seen by Provider: Apr 11, 2019 Time Seen by Provider: 16:36 Initial Comments To ER from [facility] with reports of hypoxia and shortness of breath. He was there for routine counseling visit as part of the addiction treatment program there with Dr. Vianca Go. Vital signs were checked and he was found to have an oxygen saturation of 74% on room air. He does report some shortness of breath, history of COPD. He smokes about one pack of cigarettes per day. Denies fevers or chills. Timing/Duration: getting worse Severity: moderate Associated Symptoms: cough, shortness of breath Allergies and Home Medications Allergies Coded Allergies: No Allergy Information Available (Unverified , 02/14/18) Home Medications Albuterol Sulfate 1 Puff Puff, 2 PUFF IH Q4H PRN for SHORTNESS OF BREATH, (Rep orted) 1 PUFF = 90 MCG Aspirin 81 Mg Tablet.dr, 81 MG PO DAILY, (Reported) Atorvastatin Calcium 20 Mg Tablet, 20 MG PO HS, (Reported) Buprenorphine HCl/Naloxone HCl 1 Each Film, 2 EACH SL DAILY, (Reported) Metoprolol Succinate 25 Mg Tab.er.24h, 25 MG PO DAILY Prescribed by: GABRIELLE EVANS on 04/14/18 5140 Patient Home Medication List Home Medication List Reviewed: Yes Review of Systems Review of Systems Constitutional: see HPI; No chills, No fever EENTM: see HPI Respiratory: see HPI, cough Cardiovascular: no symptoms reported Genitourinary: no symptoms reported Musculoskeletal: no symptoms reported Skin: no symptoms reported Psychiatric/Neurological: No Symptoms Reported Hematologic/Lymphatic: No Symptoms Reported Immunological/Allergic: no symptoms reported Past Aiidoeu-Uuoyku-Gnjlav Hx Patient Social History Type Used: Cigarettes Recent Foreign Travel: No Contact w/Someone Who Travel: No Recent Infectious Disease Expo: No Past Medical History Orthopedic COPD Currently Using CPAP: No Currently Using BIPAP: No High Cholesterol Physical Exam Vital Signs - First Documented 04/11/19 16:06 Temp 36.8 Pulse 93 Resp 22 B/P (MAP) 139/61 (87) Pulse Ox 91 O2 Delivery Nasal Cannula O2 Flow Rate 3.00 Capillary Refill : Less Than 3 Seconds Height: 5'8.00" Weight: 135lbs. 0.0oz. 61.521736vg; 20.00 BMI Method: General Appearance: WD/WN, no apparent distress, other (speaks in short phrases, ambulatory to room 2, exertional dyspnea but no distress. Once he sits on the edge of the bed he is able to speak in full sentences, joking with us.) Eyes: Bilateral Eye Normal Inspection, Bilateral Eye PERRL HEENT: PERRL/EOMI, normal ENT inspection Neck: non-tender, full range of motion Respiratory: no respiratory distress, decreased breath sounds, wheezing Cardiovascular: regular rate, rhythm Gastrointestinal: normal bowel sounds, non tender, soft Neurologic/Psychiatric: alert, normal mood/affect, oriented x 3 Skin: normal color, warm/dry Progress/Results/Core Measures Suspected Sepsis Recent Fever Within 48 Hours: No Infection Criteria Present: None New/Unexplained Altered Menta: No Sepsis Screen: No Definite Risk SIRS Temperature: Pulse: 93 Respiratory Rate: 22 Laboratory Tests 04/11/19 16:10: White Blood Count 8.9 Blood Pressure 139 /61 Mean: 87 Laboratory Tests 04/11/19 16:10: Creatinine 0.92, INR Comment 1.2, Platelet Count 171, Total Bilirubin 0.6 Results/Orders Lab Results Laboratory Tests Test 04/11/19 16:10 04/11/19 19:41 Range/Units White Blood Count 8.9 4.3-11.0 10^3/uL Red Blood Count 4.84 4.35-5.85 10^6/uL Hemoglobin 15.2 13.3-17.7 G/DL Hematocrit 46 40-54 % Mean Corpuscular Volume 94 80-99 FL Mean Corpuscular Hemoglobin 31 25-34 PG Mean Corpuscular Hemoglobin Concent 33 32-36 G/DL Red Cell Distribution Width 12.7 10.0-14.5 % Platelet Count 171 130-400 10^3/uL Mean Platelet Volume 10.0 7.4-10.4 FL Neutrophils (%) (Auto) 72 42-75 % Lymphocytes (%) (Auto) 14 12-44 % Monocytes (%) (Auto) 14 H 0-12 % Eosinophils (%) (Auto) 0 0-10 % Basophils (%) (Auto) 0 0-10 % Neutrophils # (Auto) 6.4 1.8-7.8 X 10^3 Lymphocytes # (Auto) 1.2 1.0-4.0 X 10^3 Monocytes # (Auto) 1.2 H 0.0-1.0 X 10^3 Eosinophils # (Auto) 0.0 0.0-0.3 10^3/uL Basophils # (Auto) 0.0 0.0-0.1 10^3/uL Prothrombin Time 15.9 H 12.2-14.7 SEC INR Comment 1.2 0.8-1.4 Activated Partial Thromboplast Time 29 24-35 SEC D-Dimer 0.82 H 0.00-0.49 UG/ML Sodium Level 139 135-145 MMOL/L Potassium Level 4.5 3.6-5.0 MMOL/L Chloride Level 98 98-107 MMOL/L Carbon Dioxide Level 32 21-32 MMOL/L Anion Gap 9 5-14 MMOL/L Blood Urea Nitrogen 19 H 7-18 MG/DL Creatinine 0.92 0.60-1.30 MG/DL Estimat Glomerular Filtration Rate > 60 BUN/Creatinine Ratio 21 Glucose Level 147 H 70-105 MG/DL Calcium Level 9.9 8.5-10.1 MG/DL Corrected Calcium 10.1 8.5-10.1 MG/DL Magnesium Level 1.7 1.6-2.4 MG/DL Total Bilirubin 0.6 0.1-1.0 MG/DL Aspartate Amino Transf (AST/SGOT) 22 5-34 U/L Alanine Aminotransferase (ALT/SGPT) 23 0-55 U/L Alkaline Phosphatase 63 40-136 U/L Myoglobin 204.6 H 10.0-92.0 NG/ML Troponin I 0.062 H <0.028 NG/ML B-Type Natriuretic Peptide 468.4 H <100.0 PG/ML Total Protein 7.8 6.4-8.2 GM/DL Albumin 3.7 3.2-4.5 GM/DL My Orders Orders - GIL JEFFREY APRN Cbc With Automated Diff (04/11/19 16:11) Magnesium (04/11/19 16:11) Chest 1 View, Ap/Pa Only (04/11/19 16:11) Cardiac Profile 1 (04/11/19 16:11) Comprehensive Metabolic Panel (04/11/19 16:11) Myoglobin Serum (04/11/19 16:11) Protime With Inr (04/11/19 16:11) Partial Thromboplastin Time (04/11/19 16:11) O2 (04/11/19 16:11) Monitor-Rhythm Ecg Trace Only (04/11/19 16:11) Lipid Panel (04/12/19 06:00) Ed Iv/Invasive Line Start (04/11/19 16:11) BNP (04/11/19 16:11) Aspirin Chewable Tablet (Baby Aspirin Ch (04/11/19 16:15) Albuterol/Ipra Inhalation Soln (Duoneb I (04/11/19 16:30) Methylprednisolone Sod Succ (Solu-Medrol (04/11/19 16:30) Svn Small Volume Nebulizer (04/11/19 16:20) Fibrin Degradation Products (04/11/19 16:10) Ekg Tracing (04/11/19 16:39) Ct Angio Chest W (04/11/19 16:54) Iohexol Injection (Omnipaque 350 Mg/Ml 1 (04/11/19 17:15) Received Contrast (Hold Metformin- Contr (04/11/19 17:15) Sodium Chloride Flush (Catheter Flush Sy (04/11/19 17:15) Ns (Ivpb) (Sodium Chloride 0.9% Ivpb Bag (04/11/19 17:15) Arterial Blood Gas (04/11/19 19:43) Aspirin Chewable Tablet (Baby Aspirin Ch (04/11/19 20:00) Metoprolol Succinate (Xl) Tab (Toprol Xl (04/11/19 20:00) Medications Given in ED Current Medications Medications Dose Ordered Sig/Kendrick Route Start Time Stop Time Status Last Admin Dose Admin Albuterol/ Ipratropium 3 ml ONCE ONCE INH 04/11/19 16:30 04/11/19 16:31 DC 04/11/19 16:34 3 ML Aspirin 324 mg ONCE ONCE PO 04/11/19 16:15 04/11/19 16:16 DC 04/11/19 16:57 324 MG Iohexol 100 ml ONCE ONCE IV 04/11/19 17:15 04/11/19 17:16 DC 04/11/19 18:04 100 ML Methylprednisolone Sodium Succinate 125 mg ONCE ONCE IVP 04/11/19 16:30 04/11/19 16:31 DC 04/11/19 16:57 125 MG Sodium Chloride 100 ml ONCE ONCE IV 04/11/19 17:15 04/11/19 17:16 DC 04/11/19 18:04 80 ML Vital Signs/I&O 04/11/19 04/11/19 16:06 16:35 Temp 36.8 Pulse 93 Resp 22 B/P (MAP) 139/61 (87) Pulse Ox 91 95 O2 Delivery Nasal Cannula Nasal Cannula O2 Flow Rate 3.00 4.00 Capillary Refill : Less Than 3 Seconds Blood Pressure Mean: 87 POS Diagnostic Imaging Diagonstic Imaging: CT Plain Films/CT/US/NM/MRI: chest Comments NAME: URMILA GORDON V MED REC#: [id number] PT STATUS: REG ER : 1960 PHYSICIAN: GIL JEFFREY APRN ADMIT DATE: 04/11/19/ER Draft POSDate of Exam:04/11/19 CHEST 1 VIEW, AP/PA ONLY INDICATION: Shortness of breath. Frontal chest obtained at 4:41 p.m. COMPARISON: There is no prior study for comparison. FINDINGS: Heart is normal in size. Mediastinal silhouette is unremarkable. There is severe COPD change with hyperinflation and biapical bullous disease. There is central vascular congestion with some interstitial edema with some bibasilar infiltrate. There is no pneumothorax or pleural fluid. There is a density overlying the right apex which appears to be calcified and therefore likely granuloma. IMPRESSION: Severe COPD changes. Central vascular congestion with some interstitial edema as well as bibasilar infiltrate. Dictated on workstation # [id number] Dict: 04/11/19 1653 Trans: 04/11/19 1657 TS [id number] Interpreted by: JEANE WATERS MD Electronically signed by: Departure Communication (Admissions) Time/Spoke to Admitting Phy: 19:[address] Shen, agrees to admit, consult Dr. Chapa and Dr. Evans. Spoke with Dr. Chapa, agrees with just Solu-Medrol because at this point as his cough is chronic in nature and no change in regards to no increase in productivity or frequency. sPoke with Dr. Diallo, agrees to consult, no Lovenox at this time, just continue his baby aspirin and Toprol Impression Primary Impression: COPD exacerbation Additional Impression: Hypoxemia Disposition: ADMITTED INPATIENT Condition: Stable Admissions Decision to Admit Reason: Admit from ER (General) Decision to Admit/Date: Apr 11, 2019 Time/Decision to Admit Time: 19:52 Departure-Patient Inst. Decision time for Depature: 19:52 Referrals: KULDIP DUONG MD (PCP/Family) Primary Care Physician GIL JEFFREY APRN Apr 11, 2019 16:38 POS
[2019-04-11 16:47] LABS: FIBRIN DEGRADATION PRODUCTS 0.82 UG/ML (0.00-0.49); INR 1.2 (0.8-1.4); PROTHROMBIN TIME PATIENT 15.9 SEC (12.2-14.7)
[2019-04-11 16:55] LABS: ALANINE AMINOTRANSFERASE 23 U/L (0-55); ALBUMIN 3.7 GM/DL (3.2-4.5); ALKALINE PHOSPHATASE 63 U/L (40-136); BILIRUBIN,TOTAL 0.6 MG/DL (0.1-1.0); BUN/CREATININE RATIO 21; CALCIUM 9.9 MG/DL (8.5-10.1); CARBON DIOXIDE 32 MMOL/L (21-32); CHLORIDE 98 MMOL/L (98-107); CREATININE SERUM 0.92 MG/DL (0.60-1.30); GFR ESTIMATED > 60; GLUCOSE 147 MG/DL (70-105); MAGNESIUM 1.7 MG/DL (1.6-2.4); POTASSIUM 4.5 MMOL/L (3.6-5.0); SODIUM 139 MMOL/L (135-145); TOTAL PROTEIN 7.8 GM/DL (6.4-8.2)
--- NOTE | 2019-04-11 16:58 | Diagnostic Imaging Report ---
INDICATION: Shortness of breath. Frontal chest obtained at 4:41 p.m. COMPARISON: There is no prior study for comparison. FINDINGS: Heart is normal in size. Mediastinal silhouette is unremarkable. There is severe COPD change with hyperinflation and biapical bullous disease. There is central vascular congestion with some interstitial edema with some bibasilar infiltrate. There is no pneumothorax or pleural fluid. There is a density overlying the right apex which appears to be calcified and therefore likely granuloma. IMPRESSION: Severe COPD changes. Central vascular congestion with some interstitial edema as well as bibasilar infiltrate. Dictated by: Dictated on workstation # [id number]
[2019-04-11] MEDS ORDERED: NS 100 ML (IVPB) BAG IV ONE (17:15)
[2019-04-11] MEDS ORDERED: IOHEXOL 350 MG/ML 100 ML (OMNIPAQUE 350) VIAL IV ONE (17:15)
[2019-04-11] MEDS ORDERED: CATHETER FLUSH 10 ML SYR IV PRN (17:15)
[2019-04-11] MEDS ORDERED: HOLD METFORMIN - RECEIVED CONTRAST 20 ML VIAL IV SCH (17:15)
--- NOTE | 2019-04-11 18:20 | Diagnostic Imaging Report ---
EXAMINATION: CT angiography of the chest. TECHNIQUE: Contrast enhanced thin section helical images were obtained through the chest with intravenous contrast timed for the optimal opacification of the arterial structures per CTA protocol. Post-processing, reconstructions and interpretation of angiographic images of the vessels was performed. 3D MIP reconstructions were performed and reviewed. All CT scans use one or more of the following dose optimizing techniques: automated exposure control, MA and/or KvP adjustment based on a patient size and exam type, or iterative reconstruction. HISTORY: Shortness of breath. COMPARISON: None available. FINDINGS: There is no pulmonary embolism. There are moderate coronary artery calcifications. 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 Lungs are severely emphysematous with scarring in the lung apices. An area of nodularity is seen in the left lower lobe measuring 14 x 21 mm, likely atelectasis. There is bronchial wall thickening with areas of mucous plugging and tree-in-bud nodularity in keeping with chronic bronchitis. No pleural effusion or pneumothorax. No suspicious nodules. Heart size is normal. No pericardial effusion. There is no axillary or supraclavicular lymphadenopathy. There is no mediastinal lymphadenopathy. Limited views of the upper abdomen are unremarkable. There are no suspicious osseus lesions. IMPRESSION: 1. No pulmonary embolism. 2. Severely emphysematous lungs with chronic bronchitis. 3. Likely atelectasis in the left base. However, three-month CT is recommended to ensure resolution and that this is not a nodule. Dictated by: Dictated on workstation # [id number]
[2019-04-11 19:55] LABS: ABG BASE EXCESS 8.1 MMOL/L (-2.5-2.5); ABG OXYGEN SATURATION 93 % (94-100); ABG PO2 74 MMHG (79-93); ABG TCO2 36.6 MMOL/L (21.0-31.0)
[2019-04-11 19:58] LABS: ABG PCO2 71 MMHG (35-45)
[2019-04-11 19:59] LABS: ALLENS TEST POS; INSPIRED O2 3.5L; PATIENT TEMP 36.7; VENTILATOR NO
[2019-04-11] MEDS ORDERED: AZITHROMYCIN 250 MG TAB (ZITHROMAX) PO ONE (20:15)
[2019-04-11] MEDS ORDERED: cefTRIAXone FOR IV USE 1,000 MG in WATER (STERILE) FOR INJECTION 10 ML IV ONE (20:15)
[2019-04-11] MEDS ORDERED: LORazepam INJ 2 MG/ML (ATIVAN) VIAL IVP PRN (20:30)
[2019-04-11] MEDS ORDERED: NS IV 1000 ML 1,000 ML IV SCH (21:30)
[2019-04-11] MEDS ORDERED: LORazepam INJ 2 MG/ML (ATIVAN) VIAL IV PRN (21:45)
[2019-04-11] MEDS ORDERED: methylPREDNISolone 125 MG (Solu-MEDROL) VIAL IVP SCH (22:00)
[2019-04-11 22:04] LABS: ABG BASE EXCESS 8.7 MMOL/L (-2.5-2.5); ABG OXYGEN SATURATION 81 % (94-100); ABG PO2 50 MMHG (79-93); ABG TCO2 38.3 MMOL/L (21.0-31.0)
[2019-04-11 22:06] LABS: ABG PCO2 80 MMHG (35-45); ABG PH 7.27 (7.37-7.43); ALLENS TEST POS; INSPIRED O2 50%BIPAP; PATIENT TEMP 36.1; VENTILATOR NO
[2019-04-11] MEDS ORDERED: NS IV 500 ML 500 ML ONE (22:44)
[2019-04-11 23:56] LABS: ABG BASE EXCESS 4.2 MMOL/L (-2.5-2.5); ABG OXYGEN SATURATION 96 % (94-100); ABG PO2 81 MMHG (79-93); ABG TCO2 33.6 MMOL/L (21.0-31.0)
[2019-04-11 23:58] LABS: ALLENS TEST POSITIVE; INSPIRED O2 40% BIPAP; PATIENT TEMP 35.8; VENTILATOR NO
[2019-04-12] VITALS (31 sets, daily range): BP systolic 82–131; BP diastolic 48–85
[2019-04-12] LABS: ABG PCO2 73 MMHG (35-45); ABG PH 7.25 (7.37-7.43)
[2019-04-12] MEDS ORDERED: NS IV 1000 ML 1,000 ML IV ONE (00:45)
[2019-04-12] MEDS ORDERED: NS IV 500 ML 500 ML IV ONE (00:45)
[2019-04-12] MEDS ORDERED: RT-ALBUTEROL/IPRATROPIUM 3 ML (DUONEB) VIAL INH PRN (01:15)
[2019-04-12 01:59] LABS: BILIRUBIN,URINE NEGATIVE (NEGATIVE); CLARITY,URINE CLEAR; COLOR,URINE YELLOW; GLUCOSE, URINE (UA) NEGATIVE (NEGATIVE); KETONES,URINE NEGATIVE (NEGATIVE); LEUKOCYTE ESTERASE ,URINE 2+ (NEGATIVE); NITRITE,URINE NEGATIVE (NEGATIVE); PH,URINE 6 (5-9); PROTEIN,URINE 2+ (NEGATIVE)
[2019-04-12 02:07] LABS: AMPHETAMINE SCREEN, URINE NEGATIVE (NEGATIVE); BARBITURATE SCREEN URINE NEGATIVE (NEGATIVE); BENZODIAZEPINES SCREEN URINE POSITIVE (NEGATIVE); CANNABINOID SCREEN, URINE NEGATIVE (NEGATIVE); COCAINE SCREEN URINE NEGATIVE (NEGATIVE); METHADONE STAT NEGATIVE (NEGATIVE); METHAMPHETAMINE SCREEN URINE S NEGATIVE (NEGATIVE); OPIATE SCREEN URINE NEGATIVE (NEGATIVE); OXYCODONE STAT NEGATIVE (NEGATIVE); PROPOXYPHENE STAT NEGATIVE (NEGATIVE); TRICYCLIC ANTIDEPRESSANTS SCRE NEGATIVE (NEGATIVE)
[2019-04-12 02:08] LABS: BACTERIA,URINE FEW /HPF; RBC,URINE 50-100 /HPF; SQUAMOUS EPITHELIAL CELL,UR RARE /HPF
[2019-04-12] MEDS: RT-ALBUTEROL/IPRATROPIUM 3 ML (DUONEB) VIAL INH SCH ×6 (02:17→22:21)
[2019-04-12 02:47] LABS: ABG BASE EXCESS 6.2 MMOL/L (-2.5-2.5); ABG OXYGEN SATURATION 70 % (94-100); ABG PCO2 67 MMHG (35-45); ABG PO2 41 MMHG (79-93); ABG TCO2 34.7 MMOL/L (21.0-31.0)
[2019-04-12 02:50] LABS: ALLENS TEST POSITIVE; INSPIRED O2 40%; PATIENT TEMP 36.2; VENTILATOR NO
--- NOTE | 2019-04-12 04:19 | Pulmonary Consultation ---
ELFEGO TAVERAS MED STUDENT 04/12/19 0419: History of Present Illness History of Present Illness Date of Consultation 04/12/19 04:18 Time Seen by Provider: 04:18 Date of Admission 04/11/19 Reason for Visit: Oxygen saturation 74% at [facility] History of Present Illness Patient is a 58 y/o male with a past medical history of COPD sent to ED after he was found to have an oxygen saturation of 74% in [facility]. Patient states that he has had a persistent cough for weeks productive of green sputum and increasing shortness of breath for the past three days. Denies fevers, chills, pedal edema. He states that he does not require home oxygen and currently smokes a pack a day for the past 50 years. Allergies and Home Medications Allergies Coded Allergies: No Allergy Information Available (Unverified , 02/14/18) Home Medications Albuterol Sulfate 1 Puff Puff, 2 PUFF IH Q4H PRN for SHORTNESS OF BREATH, (Reported) 1 PUFF = 90 MCG Aspirin 81 Mg Tablet.dr, 81 MG PO DAILY, (Reported) Atorvastatin Calcium 20 Mg Tablet, 20 MG PO HS, (Reported) Buprenorphine HCl/Naloxone HCl 1 Each Film, 2 EACH SL DAILY, (Reported) Metoprolol Succinate 25 Mg Tab.er.24h, 25 MG PO DAILY Prescribed by: GABRIELLE EVANS on 04/14/18 2031 Past Zctkisw-Nngrer-Mbnhbn Hx Patient Social History Alcohol Use: Denies Use Recreational Drug Use: Yes (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) Type Used: Cigarettes Recent Foreign Travel: No Contact w/Someone Who Travel: No Recent Infectious Disease Expo: No Recent Hopitalizations: No Physical Abuse: No Sexual Abuse: No Mistreated: No Fear: No Seasonal Allergies Seasonal Allergies: No Past Medical History Surgeries: Yes (RT HAND FINGERS) Orthopedic Respiratory: Yes COPD Currently Using CPAP: No Currently Using BIPAP: No Cardiac: Yes High Cholesterol, Hypertension Neurological: Yes Genitourinary: No Gastrointestinal: No Endocrine: No Cancer: No Psychosocial: No Integumentary: No Review of Systems Constitutional: No: Fever, Chills, Sweats Respiratory: Cough, Shortness of breath, SOB with excertion, Sputum Cardiovascular: No: Edema Gastrointestinal: No: Nausea, Vomiting, Diarrhea, Constipation Sepsis Event Evaluation Height, Weight, BMI Height: 5'8.00" Weight: 135lbs. 0.0oz. 61.278577qp; 20.38 BMI Method: Exam Exam Vital Signs Date Time Temp Pulse Resp B/P (MAP) Pulse Ox O2 Delivery O2 Flow Rate FiO2 04/12/19 04:00 NIV Bilevel 40 04/12/19 03:00 73 8 113/81 (92) 98 NIV Bilevel 40.00 04/12/19 02:17 48 22 92 40.00 04/12/19 02:00 50 19 85/57 (66) 92 NIV Bilevel 40.00 04/12/19 01:00 53 19 87/52 (64) 95 NIV Bilevel 40.00 04/12/19 01:00 53 04/12/19 00:00 47 14 131/85 (100) 96 NIV Bilevel 40.00 04/12/19 00:00 NIV Bilevel 40 04/11/19 23:30 52 20 122/82 (95) 97 NIV Bilevel 40.00 04/11/19 23:00 51 19 76/61 (66) 91 NIV Bilevel 40.00 04/11/19 22:50 52 19 84/60 (68) 93 NIV Bilevel 40.00 04/11/19 22:00 53 12 96/68 (77) 97 NIV Bilevel 50.00 04/11/19 21:57 36.1 58 98 04/11/19 21:45 53 12 88/79 (82) 95 NIV Bilevel 50.00 04/11/19 21:36 56 14 99/77 (84) 95 NIV Bilevel 50.00 04/11/19 21:30 78/56 (63) 04/11/19 21:30 98 NIV Bilevel 4.00 50 04/11/19 21:26 36.1 58 14 95/65 96 NIV Bilevel 50.00 04/11/19 21:25 55 14 98 50.00 04/11/19 21:25 55 04/11/19 21:23 36.1 58 14 95/65 (75) 96 NIV Bilevel 50.00 04/11/19 21:12 36.5 80 20 102/78 (87) 98 NIV Bilevel 4.00 04/11/19 20:30 61 14 98 50.00 04/11/19 16:35 95 Nasal Cannula 4.00 04/11/19 16:10 94 Nasal Cannula 3.00 04/11/19 16:06 36.8 93 22 139/61 (87) 91 Nasal Cannula 3.00 I & O 04/12/19 07:00 Intake Total 0 ml Output Total 300 ml Balance -300 ml Height & Weight Height: 5'8.00" Weight: 135lbs. 0.0oz. [id number]; 20.38 BMI Method: General Appearance: No Apparent Distress, Thin HEENT: PERRL/EOMI Neck: Full Range of Motion, Normal Inspection Respiratory: No Respiratory Distress; No Accessory Muscle Use; Decreased Breath Sounds Cardiovascular: Regular Rate, Rhythm Capillary Refill: Less Than 3 Seconds Gastrointestinal: normal bowel sounds, non tender, soft Extremity: No Pedal Edema Neurologic/Psychiatric: Alert, Oriented x3, No Motor/Sensory Deficits Skin: Normal Color, Warm/Dry Results Lab Laboratory Tests 04/11/19 16:10 Radiology 04/11/[address] IMPRESSION: 1. No pulmonary embolism. 2. Severely emphysematous lungs with chronic bronchitis. 3. Likely atelectasis in the left base. However, three-month CT is recommended to ensure resolution and that this is not a nodule. 04/11/19 Chest Xray Severe COPD changes. Central vascular congestion with some interstitial edema as well as bibasilar infiltrate. Assessment/Plan Assessment/Plan COPD exacerbation -Solu-medrol -duoneb Q2hr PRN -on BIPAP O2 40% Elevated BNP -echo Nicotine dependence -patient education SHABBIR CHAPA DO 04/12/19 0732: History of Present Illness History of Present Illness Time Seen by Provider: 07:28 Allergies and Home Medications Allergies Coded Allergies: No Allergy Information Available (Unverified , 02/14/18) Home Medications Albuterol Sulfate 1 Puff Puff, 2 PUFF IH Q4H PRN for SHORTNESS OF BREATH, (Reported) 1 PUFF = 90 MCG Aspirin 81 Mg Tablet.dr, 81 MG PO DAILY, (Reported) Atorvastatin Calcium 20 Mg Tablet, 20 MG PO HS, (Reported) Buprenorphine HCl/Naloxone HCl 1 Each Film, 2 EACH SL DAILY, (Reported) Metoprolol Succinate 25 Mg Tab.er.24h, 25 MG PO DAILY Prescribed by: GABRIELLE EVANS on 04/14/18 0012 Review of Systems Time Seen by Provider: 07:28 Exam Exam General Appearance: Anxious, Moderate Distress, Thin HEENT: PERRL/EOMI, TMs Normal, Pharynx Normal Neck: Full Range of Motion, Normal Inspection Respiratory: No Respiratory Distress; No Accessory Muscle Use; Decreased Breath Sounds Cardiovascular: Regular Rate, Rhythm Capillary Refill: Less Than 3 Seconds Gastrointestinal: normal bowel sounds, non tender, soft Extremity: No Pedal Edema Neurologic/Psychiatric: Alert, Oriented x3, No Motor/Sensory Deficits Skin: Normal Color, Warm/Dry Assessment/Plan Assessment/Plan Acute on chronic respiratory failure -Repeat ABG COPD exacerbation with hypoxia and C02 narcosis -Solu-medrol 40 Q 6 -duoneb Q2hr PRN -Noninvasive ventilation O2 40% -Repeat ABG Nicotine dependence -patient education Supervisory-Addendum Brief Verification & Attestation Participated in pt care: history Personally performed: exam, history Care discussed with: Medical Student Procedures: n/a Verification and Attestation of Medical Student E/M Service A medical student performed and documented this service in my presence. I reviewed and verified all information documented by the medical student and made modifications to such information, when appropriate. I personally performed the physical exam and medical decision making. Shabbir Chapa, Apr 12, 2019,07:32 ELFEGO TAVERAS MED STUDENT Apr 12, 2019 04:19 SHABBIR JAFFE DO Apr 12, 2019 07:32 POS
[2019-04-12 04:51] LABS: ALBUMIN 3.1 GM/DL (3.2-4.5); BASOPHILS % (AUTO) 0 % (0-10); BILIRUBIN,TOTAL 0.3 MG/DL (0.1-1.0); CALCIUM 8.4 MG/DL (8.5-10.1); CHLORIDE 103 MMOL/L (98-107); EOSINOPHILS % (AUTO) 0 % (0-10); HEMATOCRIT 41 % (40-54); HEMOGLOBIN 13.2 G/DL (13.3-17.7); LYMPHOCYTES # (AUTO) 0.5 X 10^3 (1.0-4.0); LYMPHOCYTES % (AUTO) 8 % (12-44); MAGNESIUM 1.8 MG/DL (1.6-2.4); MEAN CORPUSCULAR HEMOGLOBIN 31 PG (25-34); MEAN CORPUSCULAR HGB CONC 32 G/DL (32-36); MEAN CORPUSCULAR VOLUME 97 FL (80-99); MEAN PLATELET VOLUME 10.2 FL (7.4-10.4); MONOCYTES # (AUTO) 0.1 X 10^3 (0.0-1.0); MONOCYTES % (AUTO) 2 % (0-12); NEUTROPHILS # (AUTO) 5.8 X 10^3 (1.8-7.8); NEUTROPHILS % (AUTO) 90 % (42-75); PLATELET COUNT 156 10^3/uL (130-400); POTASSIUM 5.4 MMOL/L (3.6-5.0); RED CELL DISTRIBUTION WIDTH 12.6 % (10.0-14.5); SODIUM 138 MMOL/L (135-145); TOTAL PROTEIN 6.6 GM/DL (6.4-8.2); WHITE BLOOD COUNT 6.5 10^3/uL (4.3-11.0)
[2019-04-12] MEDS ORDERED: cefTRIAXone FOR IV USE 1,000 MG in WATER (STERILE) FOR INJECTION 10 ML IV SCH (05:00)
[2019-04-12 05:07] LABS: CHOLESTEROL 60 MG/DL (< 200); HDL CHOLESTEROL 21 MG/DL (40-60); TRIGLYCERIDES 29 MG/DL (<150); VLDL CHOLESTEROL 6 MG/DL (5-40)
[2019-04-12] MEDS ORDERED: morphine INJ 4 MG/ML 1 ML (VIAL/SYRINGE) IVP PRN (05:15)
[2019-04-12] MEDS ORDERED: HALOPERIDOL 5 MG/ML (HALDOL) AMP IV PRN (05:15)
[2019-04-12] MEDS ORDERED: diphenhydrAMINE 50 MG/ML INJ (BENADRYL) IVP PRN (05:15)
[2019-04-12 05:18] LABS: ABG BASE EXCESS 4.9 MMOL/L (-2.5-2.5); ABG OXYGEN SATURATION 92 % (94-100); ABG PCO2 60 MMHG (35-45); ABG PO2 61 MMHG (79-93); ABG TCO2 32.8 MMOL/L (21.0-31.0)
[2019-04-12 05:22] LABS: ABG PH 7.32 (7.37-7.43); ALLENS TEST POSITIVE; INSPIRED O2 35% BIPAP; PATIENT TEMP 36; VENTILATOR NO
[2019-04-12] MEDS ORDERED: LACTATED RINGERS 1,000 ML IV ONE ×2 (05:47→06:00)
[2019-04-12] MEDS: LACTATED RINGERS 1,000 ML IV SCH ×3 (05:55→14:35)
[2019-04-12] MEDS ORDERED: methylPREDNISolone 40 MG/ML (Solu-MEDROL) VIAL ONE (05:56)
[2019-04-12] MEDS ORDERED: ENOXAPARIN 40 MG/0.4 ML (LOVENOX) SYR ONE (05:56)
[2019-04-12] MEDS: ENOXAPARIN 40 MG/0.4 ML (LOVENOX) SYR SC SCH (05:58)
[2019-04-12] MEDS ORDERED: methylPREDNISolone 125 MG (Solu-MEDROL) VIAL IVP SCH (06:00)
[2019-04-12] MEDS: methylPREDNISolone 40 MG/ML (Solu-MEDROL) VIAL IV SCH ×3 (06:00→18:20)
[2019-04-12 06:11] LABS: ALANINE AMINOTRANSFERASE 23 U/L (0-55); ALKALINE PHOSPHATASE 74 U/L (40-136); BUN/CREATININE RATIO 24; CARBON DIOXIDE 27 MMOL/L (21-32); CREATININE SERUM 0.76 MG/DL (0.60-1.30); GFR ESTIMATED > 60; GLUCOSE 148 MG/DL (70-105)
--- NOTE | 2019-04-12 07:14 | Diagnostic Imaging Report ---
INDICATION: COPD. Comparison made with prior examination 04/11/2019. FINDINGS: The heart size is normal. There is air trapping compatible with COPD. There is no pleural effusion, pneumothorax or pneumonia. Mediastinum is unremarkable. IMPRESSION: COPD. No other acute cardiopulmonary abnormality. Dictated by: Dictated on workstation # [id number]
--- NOTE | 2019-04-12 07:30 | NUR ---
REPORT RECEIVED AND CHART REVIEWED. ASSESSMENT COMPLETED. PT IS RESTING WITH EYES CLOSED BUT EASILY AWAKENS TO VERBAL STIMULI. HE IS A/OX3. PT PLACED ON 3 LPM VIA NC FOR ORAL CARE AND TOLERATED WELL. PT PLACED BACK ON BIPAP. ALL NEEDS ADDRESSED. BED IN LOW POSITION WITH CALL LIGHT WITHIN REACH.
[2019-04-12] MEDS ORDERED: BUPR1TAB45 SL (08:41)
--- NOTE | 2019-04-12 08:52 | NUR ---
CALLED [facility] FOR A LIST OF RECENTLY FILLED MEDICATIONS. I WENT OVER THAT LIST WITH THE PATIENT. [facility] FILLED: 04-11-19 SUBOXONE SL TABS 8-2MG 2 & 1/2 TABS DAILY #70 FOR 28 DAY SUPPLY 03-23-19 PROAIR INHALER 03-13-19 LIPITOR 20MG DAILY #30 HE STATES HE DOES NOT TAKE ASPIRIN ON A DAILY BASIS AND HAS NOT BEEN TAKING THE METOPROLOL. [facility] LAST FILLED METOPROLOL ER 25MG DAILY #30 06-26-18. I REMOVED THEM FROM THE MED REC AT THIS TIME. HE STATES HE DOES NOT TAKE ANYTHING OTC.
[2019-04-12] MEDS: ASPIRIN 81 MG CHEW (CHILDREN'S ASA) PO SCH (09:44)
--- NOTE | 2019-04-12 10:48 | History & Physical-Hospitalist ---
CHUCK MARTIN,MED STUDENT 04/12/19 1048: History of Present Illness HPI/Chief Complaint 58M with a history of COPD presented [facility] ED with hypoxia and shortness of breath discovered during his well check at [facility]. States that one week prior, he experienced sore throat and cough that hasn't resolved with productive cough. Currently 1 ppd smoker. Denies fever/chills. Source: patient Date Seen 04/12/19 Time Seen by a Provider: 07:21 Attending Physician Nakia Mendoza DO PCP Sriram Jett MD Referring Physician Date of Admission Apr 11, 2019 at 19:50 Home Medications & Allergies Home Medications Reviewed patient Home Medication Reconciliation performed by pharmacy medication reconciliations data reduction technician and/or nursing. Patients Allergies have been reviewed. Allergies Allergies Coded Allergies No Allergy Information Available (Unverified02/14/18) Past Eznxcml-Mioqdb-Befbfi Hx Patient Social History Alcohol Use: Denies Use Recreational Drug Use: Yes (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) Smoking Status: Current Everyday Smoker Type Used: Cigarettes Recent Foreign Travel: No Contact w/other who traveled: No Recent Hopitalizations: No Recent Infectious Disease Expo: No Immunizations Up To Date Date of Influenza Vaccine: Feb 04, 2019 Seasonal Allergies Seasonal Allergies: No Past Medical History Surgeries: Orthopedic Currently Using CPAP: No Currently Using BIPAP: No Cardiac: High Cholesterol, Hypertension Review of Systems Constitutional: No chills, No fever EENTM: No hearing loss, No vision loss Respiratory: cough; No dyspnea on exertion, No hemoptysis, No phlegm; short of breath, wheezing Cardiovascular: No chest pain, No edema Gastrointestinal: No abdominal pain, No constipation, No diarrhea, No dysphagia, No hematemesis, No nausea, No vomiting Genitourinary: No dysuria, No frequency Musculoskeletal: No back pain, No joint pain Skin: No lesions, No lumps, No rash Physical Exam Physical Exam Vital Signs Vital Signs - First Documented 04/11/19 04/11/19 16:06 21:30 Temp 36.8 Pulse 93 Resp 22 B/P (MAP) 139/61 (87) Pulse Ox 91 O2 Delivery Nasal Cannula O2 Flow Rate 3.00 FiO2 50 Capillary Refill : Less Than 3 Seconds Height, Weight, BMI Height: 5'8.00" Weight: 135lbs. 0.0oz. 61.025540uv; 20.38 BMI Method: General Appearance: No Apparent Distress, WD/WN HEENT: PERRL/EOMI, Pharynx Normal, Moist Mucous Membranes Neck: Non Tender, Supple Respiratory: Chest Non Tender, No Respiratory Distress, Wheezing (diffuse ), Other (bipap in place ) Cardiovascular: Regular Rate, Rhythm, No Gallop, No Murmur, Other (distant heart sounds ) Extremity: No Calf Tenderness, No Pedal Edema Neurologic/Psychiatric: Alert, Oriented x3 Skin: Normal Color, Warm/Dry Results Results/Procedures Labs Laboratory Tests 04/11/19 16:10 04/12/19 04:10 Patient resulted labs reviewed. Assessment/Plan Admission Diagnosis Assessment COPD Acute exacerbation Hx tobacco use Hyperkalemia Plan Continue IVF (LR) and antibiotics Serial CXRs, ABGs Dr. Chapa consulted and proving respiratory support Clinical Quality Measures DVT/VTE Risk/Contraindication: Risk Factor Score Per Nursin RFS Level Per Nursing on Admit: 4+=Very High NAKIA MENDOZA DO 04/12/19 1713: History of Present Illness HPI/Chief Complaint Chief complaint: Hypoxia HPI: This is a 58[address]WM [address] Dr[address] Hutson for chronic narcotic dependency in the midst of addiction management who presented to the ER after [facility] sent him there for hypoxia of 75%. Pt was found to be hypotensive and bradycardic and req uired BiPAP placement and Dr. Chapa consultation. His ABG remained respiratory acidoticat 7.28 and CO2 of 73. At this current time Pt denies any pain. Past Silkhcw-Vykaxe-Fpiafs Hx Past Med/Social Hx: Reviewed Nursing Past Med/Soc Hx, Reviewed and Corrections made Patient Social History Smoking Status: Current Everyday Smoker Review of Systems Constitutional: see HPI Physical Exam Physical Exam General Appearance: Anxious, Chronically ill, Mild Distress Respiratory: Accessory Muscle Use, Crackles, Decreased Breath Sounds, Wheezing (diffuse ) Cardiovascular: Regular Rate, Rhythm Neurologic/Psychiatric: Alert, Oriented x3 Assessment/Plan Admission Diagnosis Bipap Appreciate Dr Chapa Admission Status: Inpatient Order (span 2 midnights) Reason for Inpatient Admission: resp failure Diagnosis/Problems Diagnosis/Problems (1) Hypoxemia Status: Acute (2) COPD exacerbation Status: Acute Supervisory-Addendum Brief Verification & Attestation Participated in pt care: history, MDM, physical Personally performed: exam, history, MDM, supervision of care Care discussed with: Medical Student Procedures: n/a Results interpretation: Verified all documentation Verification and Attestation of Medical Student E/M Service A medical student performed and documented this service in my presence. I reviewed and verified all information documented by the medical student and made modifications to such information, when appropriate. I personally performed the physical exam and medical decision making. Nakia Mendoza, Apr 12, 2019,17:12 CHUCK MARTIN,MED STUDENT Apr 12, 2019 10:48 NAKIA LOPEZ DO Apr 12, 2019 17:13 POS
[2019-04-12 12:27] LABS: ABG OXYGEN SATURATION 96 % (94-100); ABG PCO2 55 MMHG (35-45); ABG PH 7.36 (7.37-7.43); ABG PO2 73 MMHG (79-93); ABG TCO2 32.1 MMOL/L (21.0-31.0)
[2019-04-12 12:28] LABS: ALLENS TEST YES-POS; INSPIRED O2 40; PATIENT TEMP 36.2; VENTILATOR NO
--- NOTE | 2019-04-12 13:00 | NUR ---
BIPAP REMOVED FOR PATIENT TO EAT LUNCH. HE STATES HIS BREATHING FEELS MUCH BETTER. PT TOLERATED OFF BIPAP FOR APPROX 30 MINUTES ON 3 LPM VIA NC. BIPAP REPLACED POST MEAL.
--- NOTE | 2019-04-12 16:37 | Consultation-Cardiology ---
HPI-Cardiology Cardiology Consultation: Date of Consultation 04/12/19 Time Seen by a Provider: 09:00 Date of Admission Attending Physician Nakia Shen DO Admitting Physician Sriram Jett MD Consulting Physician GABRIELLE EVANS MD, MA, FACP, FACC, FSCAI, CCDS HPI: Chief Complaint: CC: Shortness of breath HPI 58 yo man with chronic exertional shortness of breath that has progressed considerably over the last several days. Had gone to see his pcp at [facility] yesterday and was found to be quite hypoxemic and short of breath. Was sent to ER. Hypoxemia was treated and treatment initiated for ac exac of COPD. Currently on BiPAP. Does not report cp or palp or syncope or leg swelling. Notes chronic malaise Review of Systems-Cardiology Review of Systems Constitutional: malaise, tiredness; No weight loss, No weight gain Eyes: No vision change Ears/Nose/Throat: No ear discharge, No nasal drainage, No recent hearing loss Respiratory: As described under HPI Cardiovascular: As described under HPI Gastrointestinal: No diarrhea, No nausea, No vomiting Genitourinary: No dysuria, No hematuria, No urine frequency changes Musculoskeletal: No back pain, No joint pain Skin: No rash, No ulcerations Psychiatric/Neurological: No seizure, No focal weakness, No syncope Hematologic: No bleeding abnormalities ISJ-Ynbpsf-Erpyvb Hx Patient Social History Alcohol Use: Denies Use Recreational Drug Use: Yes (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) Smoking Status: Current Everyday Smoker Type Used: Cigarettes Recent Foreign Travel: No Recent Infectious Disease Expo: No Immunizations Up To Date Date of Influenza Vaccine: Feb 04, 2019 Past Medical History PMH As described under Assessment. Family Medical History Family Medical History: Has fam h/o early CAD (sister who has had CABG) Allergies and Home Medications Allergies Coded Allergies: No Allergy Information Available (Unverified , 02/14/18) Home Medications Albuterol Sulfate 1 Puff Puff, 2 PUFF IH Q4H PRN for SHORTNESS OF BREATH, (Reported) Atorvastatin Calcium 20 Mg Tablet, 20 MG PO HS, (Reported) Buprenorphine HCl/Naloxone HCl 1 Each Tab.subl, 2.5 TAB SL DAILY, (Reported) Patient Home Medication List Home Medication List Reviewed: Yes Physical Exam-Cardiology Physical Exam Vital Signs/I&O 04/12/19 04/12/19 04/12/197/19 04:55 05:00 06:00 06:15 Pulse 52 59 51 51 Resp 20 9 20 20 B/P (MAP) 112/82 (92) 87/65 (72) 91/66 (74) Pulse Ox 94 93 92 91 O2 Delivery NIV Bilevel NIV Bilevel NIV Bilevel NIV Bilevel O2 Flow Rate 35.00 35.00 35.00 35.00 04/12/19 04/12/19 04/12/19 04/12/19 06:49 07:00 07:16 07:30 Pulse 48 49 46 Resp 19 21 B/P (MAP) 85/60 (68) Pulse Ox 92 92 O2 Delivery NIV Bilevel NIV Bilevel O2 Flow Rate 35.00 35.00 FiO2 35 04/12/19 04/12/19 04/12/19 04/12/19 08:00 09:00 10:00 10:27 Pulse 64 50 Resp 22 16 15 B/P (MAP) 100/79 (86) 100/69 (79) 99/62 (74) Pulse Ox 89 88 93 O2 Delivery NIV Bilevel NIV Bilevel NIV Bilevel NIV Bilevel O2 Flow Rate 35.00 35.00 35.00 40.00 04/12/19 04/12/19 04/12/19 04/12/19 10:43 11:00 11:38 12:00 Pulse 52 49 49 Resp 20 19 16 B/P (MAP) 91/61 (71) 95/65 (75) Pulse Ox 93 93 94 94 O2 Delivery NIV Bilevel NIV Bilevel NIV Bilevel O2 Flow Rate 40.00 40.00 40.00 FiO2 40 04/12/19 04/12/19 04/12/19 04/12/19 12:57 13:00 13:10 14:00 Pulse 50 60 Resp 19 B/P (MAP) 91/60 (70) Pulse Ox 94 O2 Delivery NIV Bilevel Nasal Cannula NIV Bilevel O2 Flow Rate 40.00 2.00 40.00 04/12/19 04/12/19 14:44 16:01 Pulse 51 Resp 22 Pulse Ox 94 92 O2 Delivery Nasal Cannula O2 Flow Rate 40.00 3.00 04/12/19 00:00 Intake Total 500 ml Output Total 300 ml Balance 200 ml Capillary Refill : Less Than 3 Seconds Constitutional: AAO x 3, well-developed, well-nourished, other (thin-appearing) HEENT: PERRL, EOMI, hearing is well preserved; No xanthelasmas are seen Neck: carotid pulses are 2 + bilaterally, with good upstrokes Respiratory: No accessory muscle use; other (generally diminished air entry and prolonged exp phase) Cardiovascular: regular rate-rhythm, S1 and S2, systolic murmur (soft INNA at card base) Gastrointestinal: No tender; soft; No guarding; audible bowel sounds Extremities: No clubbing, No cyanosis, No significant edema Neurologic/Psychiatric: oriented x 3, other (moves all limbs equally) Skin: No rash, No ulcerations Data Review Labs Laboratory Tests 04/11/19 19:41: Blood Gas Puncture Site RT RADIAL, Blood Gas Patient Temperature 36.7, Arterial Blood pH 7.30*L, Arterial Blood Partial Pressure CO2 71*H, Arterial Blood Partial Pressure O2 74L, Arterial Blood HCO3 34H, Arterial Blood Total CO2 36.6H , Arterial Blood Oxygen Saturation 93L, Arterial Blood Base Excess 8.1H, Daniel Test POS, Blood Gas Ventilator Setting NO, Blood Gas Inspired Oxygen 3.5L 04/11/19 21:55: Blood Gas Puncture Site RT RAD, Blood Gas Patient Temperature 36.1, Arterial Blood pH 7.27*L, Arterial Blood Partial Pressure CO2 80*H, Arterial Blood Partial Pressure O2 50L, Arterial Blood HCO3 36H, Arterial Blood Total CO2 38.3H , Arterial Blood Oxygen Saturation 81L, Arterial Blood Base Excess 8.7H, Daniel Test POS, Blood Gas Ventilator Setting NO, Blood Gas Inspired Oxygen 50%BIPAP 04/11/19 23:50: Blood Gas Puncture Site left brachial, Blood Gas Patient Temperature 35.8, Arterial Blood pH 7.25*L, Arterial Blood Partial Pressure CO2 73*H, Arterial Blood Partial Pressure O2 81, Arterial Blood HCO3 31H, Arterial Blood Total CO2 33.6H, Arterial Blood Oxygen Saturation 96, Arterial Blood Base Excess 4.2H, Daniel Test POSITIVE, Blood Gas Ventilator Setting NO, Blood Gas Inspired Oxygen 40% BIPAP 04/12/19 01:30: Urine Color YELLOW, Urine Clarity CLEAR, Urine pH 6, Urine Specific [place] 1.020, Urine Protein 2+H, Urine Glucose (UA) NEGATIVE, Urine Ketones NEGATIVE, Urine Nitrite NEGATIVE, Urine Bilirubin NEGATIVE, Urine Urobilinogen 12H, Urine Leukocyte Esterase 2+H, Urine RBC (Auto) 5+H, Urine RBC 50-100H, Urine WBC 5-10H , Urine Squamous Epithelial Cells RARE, Urine Crystals NONE, Urine Bacteria FEWH , Urine Casts NONE, Urine Mucus NEGATIVE, Urine Culture Indicated YES, Urine Opiates Screen NEGATIVE, Urine Oxycodone Screen NEGATIVE, Urine Methadone Screen NEGATIVE, Urine Propoxyphene Screen NEGATIVE, Urine Barbiturates Screen NEGATIVE, Ur Tricyclic Antidepressants Screen NEGATIVE, Urine Phencyclidine Screen NEGATIVE, Urine Amphetamines Screen NEGATIVE, Urine Methamphetamines Screen NEGATIVE, Urine Benzodiazepines Screen POSITIVEH, Urine Cocaine Screen NEGATIVE, Urine Cannabinoids Screen NEGATIVE 04/12/19 02:45: Blood Gas Puncture Site RIGHT BRACHIAL, Blood Gas Patient Temperature 36.2, Arterial Blood pH 7.30*L, Arterial Blood Partial Pressure CO2 67H, Arterial Blood Partial Pressure O2 41L, Arterial Blood HCO3 33H, Arterial Blood Total CO2 34.7H, Arterial Blood Oxygen Saturation 70L, Arterial Blood Base Excess 6.2H, Daniel Test POSITIVE, Blood Gas Ventilator Setting NO, Blood Gas Inspired Oxygen 40% 04/12/19 02:54: Lactic Acid Level 1.15 04/12/19 04:10: White Blood Count 6.5, Red Blood Count 4.24L, Hemoglobin 13.2L, Hematocrit 41, Mean Corpuscular Volume 97, Mean Corpuscular Hemoglobin 31, Mean Corpuscular Hemoglobin Concent 32, Red Cell Distribution Width 12.6, Platelet Count 156, Mean Platelet Volume 10.2, Neutrophils (%) (Auto) 90H, Lymphocytes (%) (Auto) 8L , Monocytes (%) (Auto) 2, Eosinophils (%) (Auto) 0, Basophils (%) (Auto) 0, Neutrophils # (Auto) 5.8, Lymphocytes # (Auto) 0.5L, Monocytes # (Auto) 0.1, Eosinophils # (Auto) 0.0, Basophils # (Auto) 0.0, Sodium Level 138, Potassium Level 5.4H, Chloride Level 103, Carbon Dioxide Level 27, Anion Gap 8, Blood Urea Nitrogen 18, Creatinine 0.76, Estimat Glomerular Filtration Rate > 60, BUN/Creatinine Ratio 24, Glucose Level 148H, Calcium Level 8.4L, Corrected Calcium 9.1, Phosphorus Level 3.0, Magnesium Level 1.8, Total Bilirubin 0.3, Aspartate Amino Transf (AST/SGOT) 21, Alanine Aminotransferase (ALT/SGPT) 23, Alkaline Phosphatase 74, Troponin I < 0.028, Total Protein 6.6, Albumin 3.1L, Triglycerides Level 29, Cholesterol Level 60, LDL Cholesterol Direct 28, VLDL Cholesterol 6, HDL Cholesterol 21L 04/12/19 05:10: Blood Gas Puncture Site LEFT RADIAL, Blood Gas Patient Temperature 36, Arterial Blood pH 7.32*L, Arterial Blood Partial Pressure CO2 60H, Arterial Blood Partial Pressure O2 61L, Arterial Blood HCO3 31H, Arterial Blood Total CO2 32.8H, Arterial Blood Oxygen Saturation 92L, Arterial Blood Base Excess 4.9H, Daniel Test POSITIVE, Blood Gas Ventilator Setting NO, Blood Gas Inspired Oxygen 35% BIPAP 04/12/19 12:20: Blood Gas Puncture Site RT RADIAL, Blood Gas Patient Temperature 36.2, Arterial Blood pH 7.36L, Arterial Blood Partial Pressure CO2 55H, Arterial Blood Partial Pressure O2 73L, Arterial Blood HCO3 30H, Arterial Blood Total CO2 32.1H, Ar terial Blood Oxygen Saturation 96, Arterial Blood Base Excess 5.0H, Daniel Test YES-POS, Blood Gas Ventilator Setting NO, Blood Gas Inspired Oxygen 40 Laboratory Tests 04/11/19 16:10 04/12/19 04:10 A/P-Cardiology Assessment/Admission Diagnosis Ac exac of COPD due to lower resp tract infection Chronic tobacco use and h/o recreational drug use Minimal troponin elevation: likely type 2 [place] due hypoxemia on 04/11/19 CAD. Card cath of 04/14/18: Chronic total proximal occlusion of RCA with left to left and right to left collaterals, other coronary vessels had moderate diffuse disease, LVEF 65%, elevated LVEDP Hypertension Discussion and Recomendations * Advised to quit smoking and also refrain from recreational drug use * ASA and statin for CAD * BB for BP * Echo * Discussed his case with Dr Chapa this am Clinical Quality Measures DVT/VTE Risk/Contraindication: Risk Factor Score Per Nursin RFS Level Per Nursing on Admit: 4+=Very High GABRIELLE EVANS MD FACP FAC CCDS Apr 12, 2019 16:37 POS
[2019-04-12] MEDS: cefTRIAXone FOR IV USE 1,000 MG in WATER (STERILE) FOR INJECTION 10 ML IV SCH (20:20)
[2019-04-13] VITALS (13 sets, daily range): BP systolic 97–135; BP diastolic 55–86
[2019-04-13] MEDS: methylPREDNISolone 40 MG/ML (Solu-MEDROL) VIAL IV SCH ×4 (00:50→19:26)
[2019-04-13] MEDS: RT-ALBUTEROL/IPRATROPIUM 3 ML (DUONEB) VIAL INH SCH ×6 (02:48→22:09)
[2019-04-13 03:10] LABS: BASOPHILS % (AUTO) 0 % (0-10); EOSINOPHILS % (AUTO) 0 % (0-10); HEMATOCRIT 40 % (40-54); HEMOGLOBIN 12.7 G/DL (13.3-17.7); LYMPHOCYTES # (AUTO) 0.6 X 10^3 (1.0-4.0); LYMPHOCYTES % (AUTO) 6 % (12-44); MEAN CORPUSCULAR HEMOGLOBIN 31 PG (25-34); MEAN CORPUSCULAR HGB CONC 31 G/DL (32-36); MEAN CORPUSCULAR VOLUME 98 FL (80-99); MEAN PLATELET VOLUME 10.5 FL (7.4-10.4); MONOCYTES # (AUTO) 0.6 X 10^3 (0.0-1.0); MONOCYTES % (AUTO) 7 % (0-12); NEUTROPHILS # (AUTO) 8.7 X 10^3 (1.8-7.8); NEUTROPHILS % (AUTO) 88 % (42-75); PLATELET COUNT 171 10^3/uL (130-400); RED CELL DISTRIBUTION WIDTH 12.6 % (10.0-14.5); WHITE BLOOD COUNT 9.9 10^3/uL (4.3-11.0)
[2019-04-13 03:26] LABS: BUN/CREATININE RATIO 31; CALCIUM 8.8 MG/DL (8.5-10.1); CARBON DIOXIDE 28 MMOL/L (21-32); CHLORIDE 103 MMOL/L (98-107); CREATININE SERUM 0.74 MG/DL (0.60-1.30); GFR ESTIMATED > 60; GLUCOSE 175 MG/DL (70-105); PHOSPHORUS 2.2 MG/DL (2.3-4.7); POTASSIUM 4.7 MMOL/L (3.6-5.0); SODIUM 139 MMOL/L (135-145)
[2019-04-13 04:06] LABS: ABG BASE EXCESS 6.4 MMOL/L (-2.5-2.5); ABG OXYGEN SATURATION 68 % (94-100); ABG PCO2 56 MMHG (35-45); ABG PH 7.37 (7.37-7.43); ABG TCO2 33.6 MMOL/L (21.0-31.0)
[2019-04-13 04:08] LABS: ABG PO2 36 MMHG (79-93); ALLENS TEST POSITIVE; INSPIRED O2 45% BIPAP; VENTILATOR NO
[2019-04-13] MEDS ORDERED: SODIUM PHOSPHATE INJ 30 MM in NS (IVPB) 250 ML IV ONE (04:15)
--- NOTE | 2019-04-13 04:17 | Pulmonary Progress Note ---
Subjective Time Seen by a Provider: 04:20 Subjective/Events-last exam Pt is currently on BiPAP. Sepsis Event Evaluation Height, Weight, BMI Height: 5'8.00" Weight: 135lbs. 0.0oz. 61.588853cs; 20.38 BMI Method: Focused Exam Lactate Level 04/12/19 02:54: Lactic Acid Level 1.15 Exam Exam Vital Signs Date Time Temp Pulse Resp B/P (MAP) Pulse Ox O2 Delivery O2 Flow Rate FiO2 04/13/19 04:00 53 20 110/71 (84) 94 NIV Bilevel 45.00 04/13/19 03:00 52 19 111/75 (87) 93 NIV Bilevel 45.00 04/13/19 02:57 NIV Bilevel 45.00 04/13/19 02:49 55 20 97 45.00 04/13/19 02:00 55 19 110/66 (81) 99 NIV Bilevel 40.00 04/13/19 01:00 55 04/13/19 01:00 50 15 103/59 (74) 97 NIV Bilevel 40.00 04/13/19 00:54 NIV Bilevel 40.00 04/13/19 00:00 55 20 97/61 (73) 98 Nasal Cannula 3.00 04/12/19 23:00 56 22 92/48 (63) 97 Nasal Cannula 3.00 04/12/19 22:21 57 21 94 35.00 04/12/19 22:00 53 15 102/62 (75) 95 Nasal Cannula 3.00 04/12/19 21:00 58 18 102/62 (75) 94 Nasal Cannula 3.00 04/12/19 20:57 Nasal Cannula 3.00 04/12/19 20:00 36.5 04/12/19 20:00 57 24 105/63 (77) 93 NIV Bilevel 35.00 04/12/19 19:22 NIV Bilevel 35.00 04/12/19 19:17 55 21 96 40.00 04/12/19 19:00 55 04/12/19 19:00 51 20 99/59 (72) 93 NIV Bilevel 40.00 04/12/19 18:00 76 10 113/80 (91) 87 NIV Bilevel 40.00 04/12/19 17:00 84 15 85 NIV Bilevel 40.00 04/12/19 16:01 92 Nasal Cannula 3.00 04/12/19 16:00 71 19 98/70 (79) 92 NIV Bilevel 40.00 04/12/19 15:00 51 19 97/63 (74) 92 NIV Bilevel 40.00 04/12/19 14:44 51 22 94 40.00 04/12/19 14:00 NIV Bilevel 40.00 04/12/19 14:00 74 14 91/57 (68) 92 NIV Bilevel 40.00 04/12/19 13:10 Nasal Cannula 2.00 04/12/19 13:00 60 19 91/60 (70) 94 NIV Bilevel 40.00 04/12/19 12:57 50 04/12/19 12:00 49 16 95/65 (75) 94 NIV Bilevel 40.00 04/12/19 11:38 94 NIV Bilevel 40 04/12/19 11:00 49 19 91/61 (71) 93 NIV Bilevel 40.00 04/12/19 10:43 52 20 93 40.00 04/12/19 10:27 NIV Bilevel 40.00 04/12/19 10:00 50 15 99/62 (74) 93 NIV Bilevel 35.00 04/12/19 09:00 64 16 100/69 (79) 88 NIV Bilevel 35.00 04/12/19 08:00 22 100/79 (86) 89 NIV Bilevel 35.00 04/12/19 07:30 NIV Bilevel 35 04/12/19 07:16 46 21 92 35.00 04/12/19 07:00 49 19 85/60 (68) 92 NIV Bilevel 35.00 04/12/19 06:49 48 04/12/19 06:15 51 20 91/66 (74) 91 NIV Bilevel 35.00 04/12/19 06:00 51 20 87/65 (72) 92 NIV Bilevel 35.00 04/12/19 05:00 59 9 112/82 (92) 93 NIV Bilevel 35.00 04/12/19 04:55 52 20 94 NIV Bilevel 35.00 04/12/19 04:15 47 19 106/70 (82) 97 NIV Bilevel 40.00 I & O 04/13/19 07:00 Intake Total 2400 ml Output Total 275 ml Balance 2125 ml Height & Weight Height: 5'8.00" Weight: 135lbs. 0.0oz. 61.382463rt; 20.38 BMI Method: General Appearance: Anxious, Chronically ill, Mild Distress HEENT: PERRL/EOMI, Pharynx Normal, Moist Mucous Membranes Neck: Non Tender, Supple Respiratory: Accessory Muscle Use, Crackles, Decreased Breath Sounds, Wheezing (diffuse ) Cardiovascular: Regular Rate, Rhythm Capillary Refill: Less Than 3 Seconds Gastrointestinal: normal bowel sounds, non tender, soft Extremity: No Calf Tenderness, No Pedal Edema Neurologic/Psychiatric: Alert, Oriented x3 Skin: Normal Color, Warm/Dry Results Lab Laboratory Tests 04/11/19 16:10 04/12/19 04:10 04/13/19 02:25 Assessment/Plan Assessment/Plan Acute on chronic respiratory failure -Trial off BIPAP back to Vapotherm COPD exacerbation with hypoxia and C02 narcosis -Solu-medrol 40 Q 6 -duoneb Q2hr PRN -Noninvasive ventilation O2 40% -Repeat ABG Nicotine dependence -patient education SHABBIR YANG DO Apr 13, 2019 04:17 POS
[2019-04-13] MEDS: ENOXAPARIN 40 MG/0.4 ML (LOVENOX) SYR SC SCH (06:51)
--- NOTE | 2019-04-13 07:55 | Diagnostic Imaging Report ---
INDICATION: COPD exacerbation COMPARISON: April 12, 2019. TECHNIQUE: Single radiograph of the chest dated April 13, 2019. FINDINGS: The cardiac silhouette is within normal limits in size. No significant pulmonary vascular congestion. Background chronic obstructive pulmonary disease is noted with associated pulmonary hyperinflation and mild background chronic interstitial lung disease. However, developing infiltrate is noted within the bilateral lung bases, right greater than left. No pleural effusion. No pneumothorax. No acute osseous abnormality. IMPRESSION: Developing bibasilar pulmonary infiltrates superimposed upon a background chronic obstructive pulmonary disease. Recommend radiographic follow-up after appropriate therapy to ensure clearance. Dictated by: Dictated on workstation # [id number]
[2019-04-13] MEDS: ASPIRIN 81 MG CHEW (CHILDREN'S ASA) PO SCH (08:30)
--- NOTE | 2019-04-13 09:02 | Progress Note - Hospitalist ---
CHUCK MARTIN,MED STUDENT 04/13/19 0902: Subjective HPI/CC On Admission Date Seen by Provider: Apr 13, 2019 Time Seen by Provider: 07:46 Chief complaint: Hypoxia HPI: This is a 58yoWM who sees Dr. Hutson for chronic narcotic dependency in the midst of addiction management who presented to the ER after [facility] sent him there for hypoxia of 75%. Pt was found to be hypotensive and bradycardic and required BiPAP placement and Dr. Chapa consultation. His ABG remained respiratory acidoticat 7.28 and CO2 of 73. At this current time Pt denies any pain. Subjective/Events-last exam Pt feeling well today, breathing with nasal cannula sating at 89% during visit, off BiPAP Endorses cough but states shortness of breath is improved. Is requesting to go home Otherwise, no new complaints Not accompanied by family at bedside Focused Exam Lactate Level 04/12/19 02:54: Lactic Acid Level 1.15 Objective Exam Vital Signs Vital Signs Date Time Temp Pulse Resp B/P (MAP) Pulse Ox O2 Delivery O2 Flow Rate FiO2 04/13/19 08:00 90 Nasal Cannula 5.00 04/13/19 08:00 79 17 105/70 (82) 04/13/19 04:00 45 04/12/19 20:00 36.5 Capillary Refill : Less Than 3 Seconds General Appearance: No Apparent Distress, WD/WN HEENT: PERRL/EOMI, Moist Mucous Membranes Respiratory: Chest Non Tender, No Respiratory Distress, Wheezing (weak wheeze upper lobes b/l ) Cardiovascular: Regular Rate, Rhythm, No Edema, No Gallop, No Murmur Neurologic/Psychiatric: Alert, Oriented x3 Results/Procedures Lab Laboratory Tests 04/13/19 02:25 Patient resulted labs reviewed. Imaging: Reviewed Imaging Films, Reviewed Imaging Report Radiology CXR FINDINGS: The cardiac silhouette is within normal limits in size. No significant pulmonary vascular congestion. Background chronic obstructive pulmonary disease is noted with associated pulmonary hyperinflation and mild background chronic interstitial lung disease. However, developing infiltrate is noted within the bilateral lung bases, right greater than left. No pleural effusion. No pneumothorax. No acute osseous abnormality. IMPRESSION: Developing bibasilar pulmonary infiltrates superimposed upon a background chronic obstructive pulmonary disease. Recommend radiographic follow-up after appropriate therapy to ensure clearance. Assessment/Plan Assessment and Plan Assess & Plan/Chief Complaint Acute COPD exacerbation Tobaccoism Hyperkalemia (resolved) Continue IVF (LR), antibiotics, respiratory support Serial CXRs, ABGs Conferred with Dr. Chapa about pt's wish to go home. Due to continued desaturations during NC O2 trials, Dr. Chapa feels pt would benefit from continued therapy. Thank you Dr. Chapa. Clinical Quality Measures DVT/VTE Risk/Contraindication: Risk Factor Score Per Nursin RFS Level Per Nursing on Admit: 4+=Very High NAKIA MENDOZA DO 04/13/19 1700: Subjective Subjective/Events-last exam Vapotherm is being maintained off BiPAP. Will discontinue the catheter. Transferring to floor. Chest X-ray reveals B/L infiltrates. Bradycardia continues. Review of Systems General: Fatigue Pulmonary: Dyspnea Objective Exam General Appearance: No Apparent Distress, WD/WN, Chronically ill Respiratory: Decreased Breath Sounds, Wheezing (weak wheeze upper lobes b/l ) Cardiovascular: Regular Rate, Rhythm Neurologic/Psychiatric: Alert, Oriented x3, No Motor/Sensory Deficits, Normal Mood/Affect Assessment/Plan Assessment and Plan Assess & Plan/Chief Complaint Transfer to floor Prognosis poor residential Diagnosis/Problems Diagnosis/Problems (1) COPD exacerbation Status: Acute (2) Hypoxemia Status: Acute Supervisory-Addendum Brief Verification & Attestation Participated in pt care: history, MDM, physical Personally performed: exam, history, MDM, supervision of care Care discussed with: Medical Student Procedures: n/a Results interpretation: Verified all documentation Verification and Attestation of Medical Student E/M Service A medical student performed and documented this service in my presence. I rev iewed and verified all information documented by the medical student and made modifications to such information, when appropriate. I personally performed the physical exam and medical decision making. Nakia Mendoza, Apr 13, 2019,17:00 CHUCK MARTIN,MED STUDENT Apr 13, 2019 09:02 NAKIA LOPEZ DO Apr 13, 2019 17:00 POS
[2019-04-13] MEDS: RT-ADVAIR HFA 115/21 MCG PER PUFF IH SCH ×2 (10:15→22:09)
[2019-04-13] MEDS ORDERED: NICOTINE 21 MG (NICODERM) PATCH ONE (11:08)
[2019-04-13] MEDS ORDERED: NICOTINE 21 MG (NICODERM) PATCH TD ONE (11:15)
--- NOTE | 2019-04-13 11:25 | NUR ---
PT ARRIVED TO ROOM. THIS RN TO RESUME CARE. THIS RN AGREES WITH PREVIOUS NURSES ASSESSMENT
--- NOTE | 2019-04-13 11:28 | NUR ---
PATIENT TRANSFERRED TO ROOM 405 AT THIS TIME. PERSONAL BELONGINGS SENT WITH PATIENT AT THIS TIME. REPORT GIVEN TO JOHN MCCOY TO ASSUME CARE OF PT.
--- NOTE | 2019-04-13 11:41 | NUR ---
Initial visit by Construction Administrative Assistantdonna Rhodes: No josé luis affiliation discussed at this time. Pt admitted for COPD exacerbation. No family present. Engaged in rapport building and introduced Spiritual Care services. No follow up needs reported to department.
--- NOTE | 2019-04-13 14:02 | NUR ---
CM DISCHARGE PLANNING: Met with patient to visit about any anticipated needs. He indicated that the doctor told him he would probably need to go home with a machine pointing to his oxygen in his nose. We visited about this new need. He denied any current needs. Will f/u with him on Tuesday.
--- NOTE | 2019-04-13 16:25 | Progress Note - Cardiology ---
Cardiology SOAP Progress Note Subjective: Shortness of breath only modestly improved No cp or palp or syncope Objective: I&O/Vital Signs 04/13/19 04/13/19 04/13/19 04/13/19 04:40 05:00 06:00 06:41 Pulse 51 54 Resp 13 16 B/P (MAP) 109/86 (94) 102/63 (76) Pulse Ox 94 93 95 O2 Delivery Nasal Cannula Nasal Cannula Nasal Cannula Nasal Cannula O2 Flow Rate 3.00 3.00 3.00 3.00 04/13/19 04/13/19 04/13/19 04/13/19 06:46 07:00 08:00 08:00 Pulse 62 50 79 Resp 17 17 B/P (MAP) 106/66 (79) 105/70 (82) Pulse Ox 93 87 90 O2 Delivery Nasal Cannula Nasal Cannula Nasal Cannula O2 Flow Rate 3.00 3.00 5.00 04/13/19 04/13/19 04/13/19 04/13/19 10:15 11:29 14:33 15:56 Temp 36.9 36.3 Pulse 81 56 Resp 20 20 B/P (MAP) 135/66 (89) 100/55 (70) Pulse Ox 95 94 95 95 O2 Delivery Nasal Cannula Nasal Cannula Nasal Cannula Nasal Cannula O2 Flow Rate 5.00 5.00 5.00 5.00 04/13/19 00:00 Intake Total 2650 ml Output Total 400 ml Balance 2250 ml Weight (Pounds): 135 Weight (Ounces): 0.0 Weight (Calculated Kilograms): 61.421700 Constitutional: AAO x 3, well-developed, well-nourished, other (thin-appearing) Respiratory: No accessory muscle use; other (generally diminished air entry and prolonged exp phase) Cardiovascular: regular rate-rhythm, S1 and S2, systolic murmur (soft INNA at card base) Gastrointestional: No tender; soft; No guarding; audible bowel sounds Extremities: No clubbing, No cyanosis, No significant edema Neurologic/Psychiatric: oriented x 3, other (moves all limbs equally) Skin: No rash, No ulcerations Results/Procedures: Labs Laboratory Tests 04/13/19 02:25: White Blood Count 9.9, Red Blood Count 4.13L, Hemoglobin 12.7L, Hematocrit 40, Mean Corpuscular Volume 98, Mean Corpuscular Hemoglobin 31, Mean Corpuscular Hemoglobin Concent 31L, Red Cell Distribution Width 12.6, Platelet Count 171, Mean Platelet Volume 10.5H, Neutrophils (%) (Auto) 88H, Lymphocytes (%) (Auto) 6L, Monocytes (%) (Auto) 7, Eosinophils (%) (Auto) 0, Basophils (%) (Auto) 0, Neutrophils # (Auto) 8.7H, Lymphocytes # (Auto) 0.6L, Monocytes # (Auto) 0.6, Eosinophils # (Auto) 0.0, Basophils # (Auto) 0.0, Sodium Level 139, Potassium Level 4.7, Chloride Level 103, Carbon Dioxide Level 28, Anion Gap 8, Blood Urea Nitrogen 23H, Creatinine 0.74, Estimat Glomerular Filtration Rate > 60, BUN/Creatinine Ratio 31, Glucose Level 175H, Calcium Level 8.8, Phosphorus Level 2.2L, Magnesium Level 2.0 04/13/19 04:00: Blood Gas Puncture Site RIGHT RADIAL, Blood Gas Patient Temperature 36.0, Arterial Blood pH 7.37, Arterial Blood Partial Pressure CO2 56H, Arterial Blood Partial Pressure O2 36*L, Arterial Blood HCO3 32H, Arterial Blood Total CO2 33.6H, Arterial Blood Oxygen Saturation 68L, Arterial Blood Base Excess 6.4H, Daniel Test POSITIVE, Blood Gas Ventilator Setting NO, Blood Gas Inspired Oxygen 45% BIPAP Microbiology 04/11/19 Blood Culture - Preliminary, Resulted No growth 04/12/19 Urine Culture - Final, Complete NO GROWTH Laboratory Tests 04/12/19 04:10 04/13/19 02:25 A/P: Assessment: Ac exac of COPD due to lower resp tract infection Chronic tobacco use and h/o recreational drug use Minimal troponin elevation: likely type 2 ME due hypoxemia on 04/11/19 CAD. Card cath of 04/14/18: Chronic total proximal occlusion of RCA with left to left and right to left collaterals, other coronary vessels had moderate diffuse disease, LVEF 65%, elevated LVEDP Echo on 04/13/19: LVEF 65-70%, mildly dilated atria, RVSP 35 mmHg Hypertension Plan: * Again advised to quit smoking and also refrain from recreational drug use * ASA and statin for CAD * BB for BP * Monitor labs GABRIELLE EVANS MD FACP [facility] Apr 13, 2019 16:25 POS
[2019-04-13] MEDS ORDERED: cefTRIAXone 1,000 MG IV (ROCEPHIN) VIAL ONE (20:32)
[2019-04-13] MEDS ORDERED: WATER (STERILE) FOR INJECTION 10 ML ONE (20:32)
[2019-04-13] MEDS: cefTRIAXone FOR IV USE 1,000 MG in WATER (STERILE) FOR INJECTION 10 ML IV SCH (20:39)
[2019-04-14] VITALS: BP 113/61
[2019-04-14] MEDS: methylPREDNISolone 40 MG/ML (Solu-MEDROL) VIAL IV SCH ×2 (00:43→05:55)
[2019-04-14 04:00] VITALS: BP 126/75
[2019-04-14 04:43] LABS: BASOPHILS % (AUTO) 0 % (0-10); EOSINOPHILS % (AUTO) 0 % (0-10); HEMATOCRIT 43 % (40-54); HEMOGLOBIN 13.8 G/DL (13.3-17.7); LYMPHOCYTES # (AUTO) 0.4 X 10^3 (1.0-4.0); LYMPHOCYTES % (AUTO) 5 % (12-44); MEAN CORPUSCULAR HEMOGLOBIN 31 PG (25-34); MEAN CORPUSCULAR HGB CONC 32 G/DL (32-36); MEAN CORPUSCULAR VOLUME 98 FL (80-99); MONOCYTES # (AUTO) 0.3 X 10^3 (0.0-1.0); MONOCYTES % (AUTO) 3 % (0-12); NEUTROPHILS # (AUTO) 7.5 X 10^3 (1.8-7.8); NEUTROPHILS % (AUTO) 92 % (42-75); PLATELET COUNT 168 10^3/uL (130-400); RED CELL DISTRIBUTION WIDTH 12.8 % (10.0-14.5); WHITE BLOOD COUNT 8.2 10^3/uL (4.3-11.0)
[2019-04-14 05:12] LABS: BUN/CREATININE RATIO 28; CALCIUM 8.7 MG/DL (8.5-10.1); CARBON DIOXIDE 27 MMOL/L (21-32); CHLORIDE 102 MMOL/L (98-107); CREATININE SERUM 0.69 MG/DL (0.60-1.30); GFR ESTIMATED > 60; GLUCOSE 149 MG/DL (70-105); MAGNESIUM 2.1 MG/DL (1.6-2.4); PHOSPHORUS 2.7 MG/DL (2.3-4.7); POTASSIUM 4.7 MMOL/L (3.6-5.0); SODIUM 139 MMOL/L (135-145)
[2019-04-14] MEDS: ENOXAPARIN 40 MG/0.4 ML (LOVENOX) SYR SC SCH (05:55)
--- NOTE | 2019-04-14 06:13 | Pulmonary Progress Note ---
Subjective Time Seen by a Provider: 06:13 Subjective/Events-last exam Currently on BiPAP., Sepsis Event Evaluation Height, Weight, BMI Height: 5'8.00" Weight: 135lbs. 0.0oz. 61.938107ix; 20.38 BMI Method: Focused Exam Lactate Level 04/12/19 02:54: Lactic Acid Level 1.15 Exam Exam Vital Signs Date Time Temp Pulse Resp B/P (MAP) Pulse Ox O2 Delivery O2 Flow Rate FiO2 04/14/19 04:00 36.3 50 20 126/75 (92) 97 NIV Bilevel 45.00 04/14/19 02:24 70 23 94 45.00 04/14/19 00:00 36.5 54 20 113/61 (78) 95 Nasal Cannula 4.00 04/13/19 22:10 72 21 95 45.00 04/13/19 20:00 37.0 70 20 122/65 (84) 93 Nasal Cannula 4.00 04/13/19 20:00 92 Nasal Cannula 5.00 04/13/19 18:58 91 Nasal Cannula 6.00 04/13/19 15:56 36.3 56 20 100/55 (70) 95 Nasal Cannula 5.00 04/13/19 14:33 95 Nasal Cannula 5.00 04/13/19 11:29 36.9 81 20 135/66 (89) 94 Nasal Cannula 5.00 04/13/19 10:15 95 Nasal Cannula 5.00 04/13/19 08:00 90 Nasal Cannula 5.00 04/13/19 08:00 79 17 105/70 (82) 87 Nasal Cannula 3.00 04/13/19 07:00 50 17 106/66 (79) 93 Nasal Cannula 3.00 04/13/19 06:46 62 04/13/19 06:41 95 Nasal Cannula 3.00 I & O 04/14/19 07:00 Intake Total 1690 ml Output Total 1950 ml Balance -260 ml Height & Weight Height: 5'8.00" Weight: 135lbs. 0.0oz. 61.774778jx; 20.38 BMI Method: General Appearance: WD/WN, Chronically ill, Mild Distress HEENT: PERRL/EOMI, Moist Mucous Membranes Neck: Non Tender, Supple Respiratory: Decreased Breath Sounds, Wheezing (weak wheeze upper lobes b/l ) Cardiovascular: Regular Rate, Rhythm Capillary Refill: Less Than 3 Seconds Gastrointestinal: normal bowel sounds, non tender, soft Extremity: No Calf Tenderness, No Pedal Edema Neurologic/Psychiatric: Alert, Oriented x3, No Motor/Sensory Deficits, Normal Mood/Affect Skin: Normal Color, Warm/Dry Results Lab Laboratory Tests 04/13/19 02:25 04/14/19 04:24 Assessment/Plan Assessment/Plan Acute on chronic respiratory failure -Trial off BIPAP back to Vapotherm -GIve 40mg of IV Lasix X 1 -Repeat BNP -Currently on Rocephin -Cultures are negative. COPD exacerbation with hypoxia and C02 narcosis -Prednisone 40mg daily -duoneb Q2hr PRN -Noninvasive ventilation O2 40% Nicotine dependence -patient education SHABBIR YANG DO Apr 14, 2019 06:13 POS
[2019-04-14] MEDS: RT-ALBUTEROL/IPRATROPIUM 3 ML (DUONEB) VIAL INH SCH ×5 (06:30→21:28)
[2019-04-14 06:50] LABS: LYMPHOCYTES % (MANUAL) 1 %; MONOCYTES % (MANUAL) 3 %; NEUTROPHILS % (MANUAL) 96 %
--- NOTE | 2019-04-14 07:00 | Diagnostic Imaging Report ---
INDICATION: COPD. FINDINGS: Heart size normal. There is bibasilar atelectasis and/or pneumonitis, right greater than left. There are trace bilateral pleural effusions. There is no pneumothorax. Mediastinum is unremarkable. IMPRESSION: Bibasilar atelectasis and/or pneumonitis, right greater than left, with small bilateral pleural effusions. Dictated by: Dictated on workstation # [id number]
[2019-04-14 08:00] VITALS: BP 125/66
[2019-04-14] MEDS: NICOTINE 21 MG (NICODERM) PATCH TD SCH (08:10)
[2019-04-14] MEDS: FUROSEMIDE 40 MG/4 ML INJ (LASIX) IVP SCH (08:10)
[2019-04-14] MEDS: ASPIRIN 81 MG CHEW (CHILDREN'S ASA) PO SCH (08:10)
[2019-04-14] MEDS: NICOTINE PATCH REMOVAL TP SCH (08:11)
[2019-04-14] MEDS: predniSONE 20 MG TAB PO SCH (10:00)
[2019-04-14] MEDS: RT-ADVAIR HFA 115/21 MCG PER PUFF IH SCH ×2 (10:16→18:04)
--- NOTE | 2019-04-14 11:38 | Progress Note - Hospitalist ---
Subjective HPI/CC On Admission Date Seen by Provider: Apr 14, 2019 Time Seen by Provider: 10:00 Chief complaint: Hypoxia HPI: This is a 58yoWM who sees Dr. Hutson for chronic narcotic dependency in the midst of addiction management who presented to the ER after [facility] sent him there for hypoxia of 75%. Pt was found to be hypotensive and bradycardic and required BiPAP placement and Dr. Chapa consultation. His ABG remained res piratory acidoticat 7.28 and CO2 of 73. At this current time Pt denies any pain. Subjective/Events-last exam Patient is asking to go home but continues to desaturate and is requiring 5-6 L high flow nasal cannula to remain above 90 percent sats. He has a cough that sounds wet and productive. He's been afebrile Review of Systems Pulmonary: Dyspnea, Cough Focused Exam Lactate Level 04/12/19 02:54: Lactic Acid Level 1.15 Objective Exam Vital Signs Vital Signs Date Time Temp Pulse Resp B/P (MAP) Pulse Ox O2 Delivery O2 Flow Rate FiO2 04/14/19 10:16 92 Nasal Cannula 5.00 04/14/19 08:00 36.8 82 16 125/66 (85) 04/13/19 04:00 45 Capillary Refill : Less Than 3 Seconds General Appearance: Chronically ill HEENT: Other Neck: Full Range of Motion, Supple Respiratory: Crackles, Rales, Wheezing Cardiovascular: Regular Rate, Rhythm, No Gallop Gastrointestinal: Normal Bowel Sounds, Non Tender, Soft Neurologic/Psychiatric: Alert, Oriented x3, No Motor/Sensory Deficits, Depre ssed Affect Results/Procedures Lab Laboratory Tests 04/14/19 04:24 Patient resulted labs reviewed. Imaging: Reviewed Imaging Films, Reviewed Imaging Report Assessment/Plan Assessment and Plan Assess & Plan/Chief Complaint Exacerbation of COPD Hyperglycemia secondary to steroids Constipation we'll give milk of magnesia Tobaccoism counseled Clinical Quality Measures DVT/VTE Risk/Contraindication: Risk Factor Score Per Nursin RFS Level Per Nursing on Admit: 4+=Very High GLORIA CEBALLOS MD Apr 14, 2019 11:38 POS
[2019-04-14] MEDS ORDERED: MILK OF MAGNESIA 400 MG/5 ML 30 ML UDC PO NR (11:56)
[2019-04-14 12:00] VITALS: BP 120/71
--- NOTE | 2019-04-14 14:02 | Progress Note - Cardiology ---
Cardiology SOAP Progress Note Subjective: Shortness of breath slowly improving No cp No palp or syncope Objective: I&O/Vital Signs 04/14/19 04/14/19 04/14/19 04/14/19 02:24 04:00 06:30 08:00 Temp 36.3 36.8 Pulse 70 50 79 82 Resp 23 20 20 16 B/P (MAP) 126/75 (92) 125/66 (85) Pulse Ox 94 97 96 95 O2 Delivery NIV Bilevel Nasal Cannula O2 Flow Rate 45.00 45.00 45.00 4.00 04/14/19 04/14/19 04/14/19 08:30 10:16 12:00 Temp 36.7 Pulse 63 Resp 14 B/P (MAP) 120/71 (87) Pulse Ox 92 94 O2 Delivery Nasal Cannula Nasal Cannula Nasal Cannula O2 Flow Rate 5.00 5.00 4.00 04/14/19 00:00 Intake Total 1190 ml Output Total 1350 ml Balance -160 ml Weight (Pounds): 135 Weight (Ounces): 0.0 Weight (Calculated Kilograms): 61.031669 Constitutional: AAO x 3, well-developed, well-nourished, other (thin-appearing) Respiratory: No accessory muscle use; other (generally diminished air entry and prolonged exp phase) Cardiovascular: regular rate-rhythm, S1 and S2, systolic murmur (soft INNA at card base) Gastrointestional: No tender; soft; No guarding; audible bowel sounds Extremities: No clubbing, No cyanosis, No significant edema Neurologic/Psychiatric: oriented x 3, other (moves all limbs equally) Skin: No rash, No ulcerations Results/Procedures: Labs Laboratory Tests 04/14/19 04:24: White Blood Count 8.2, Red Blood Count 4.40, Hemoglobin 13.8, Hematocrit 43, Mean Corpuscular Volume 98, Mean Corpuscular Hemoglobin 31, Mean Corpuscular Hemoglobin Concent 32, Red Cell Distribution Width 12.8, Platelet Count 168, Mean Platelet Volume 10.0, Neutrophils (%) (Auto) 92H, Lymphocytes (%) (Auto) 5L , Monocytes (%) (Auto) 3, Eosinophils (%) (Auto) 0, Basophils (%) (Auto) 0, Ne utrophils # (Auto) 7.5, Lymphocytes # (Auto) 0.4L, Monocytes # (Auto) 0.3, Eosi nophils # (Auto) 0.0, Basophils # (Auto) 0.0, Neutrophils % (Manual) 96, Lymphocytes % (Manual) 1, Monocytes % (Manual) 3, Sodium Level 139, Potassium Level 4.7, Chloride Level 102, Carbon Dioxide Level 27, Anion Gap 10, Blood Urea Nitrogen 19H, Creatinine 0.69, Estimat Glomerular Filtration Rate > 60, BUN/Creatinine Ratio 28, Glucose Level 149H, Calcium Level 8.7, Phosphorus Level 2.7, Magnesium Level 2.1, B-Type Natriuretic Peptide 482.0H Microbiology 04/11/19 Blood Culture - Preliminary, Resulted No growth 04/12/19 Urine Culture - Final, Complete NO GROWTH Laboratory Tests 04/13/19 02:25 04/14/19 04:24 A/P: Assessment: Ac exac of COPD due to lower resp tract infection Chronic tobacco use and h/o recreational drug use Minimal troponin elevation: likely type 2 NC due hypoxemia on 04/11/19 CAD. Card cath of 04/14/18: Chronic total proximal occlusion of RCA with left to left and right to left collaterals, other coronary vessels had moderate diffuse disease, LVEF 65%, elevated LVEDP Echo on 04/13/19: LVEF 65-70%, mildly dilated atria, RVSP 35 mmHg Hypertension Plan: * Continue current regimen * Monitor labs * I answered his CV-related questions GABRIELLE EVANS MD FACP [facility] CCDS Apr 14, 2019 14:02 POS
[2019-04-14 16:00] VITALS: BP 124/69
[2019-04-14 19:44] VITALS: BP 125/69
[2019-04-14] MEDS ORDERED: cefTRIAXone 1,000 MG IV (ROCEPHIN) VIAL ONE (20:32)
[2019-04-14] MEDS ORDERED: WATER (STERILE) FOR INJECTION 10 ML ONE (20:33)
[2019-04-14] MEDS: cefTRIAXone FOR IV USE 1,000 MG in WATER (STERILE) FOR INJECTION 10 ML IV SCH (20:38)
[2019-04-15] VITALS: BP 108/64
[2019-04-15] MEDS: RT-ALBUTEROL/IPRATROPIUM 3 ML (DUONEB) VIAL INH SCH ×6 (01:09→22:08)
[2019-04-15 04:00] VITALS: BP 130/74
[2019-04-15] MEDS: ENOXAPARIN 40 MG/0.4 ML (LOVENOX) SYR SC SCH (04:40)
[2019-04-15 05:17] LABS: BASOPHILS % (AUTO) 0 % (0-10); EOSINOPHILS % (AUTO) 0 % (0-10); HEMATOCRIT 44 % (40-54); HEMOGLOBIN 14.3 G/DL (13.3-17.7); LYMPHOCYTES # (AUTO) 1.3 X 10^3 (1.0-4.0); LYMPHOCYTES % (AUTO) 15 % (12-44); MEAN CORPUSCULAR HEMOGLOBIN 32 PG (25-34); MEAN CORPUSCULAR HGB CONC 33 G/DL (32-36); MEAN CORPUSCULAR VOLUME 97 FL (80-99); MEAN PLATELET VOLUME 10.6 FL (7.4-10.4); MONOCYTES % (AUTO) 12 % (0-12); NEUTROPHILS % (AUTO) 72 % (42-75); PLATELET COUNT 123 10^3/uL (130-400); RED CELL DISTRIBUTION WIDTH 12.8 % (10.0-14.5); WHITE BLOOD COUNT 8.4 10^3/uL (4.3-11.0)
[2019-04-15 05:47] LABS: BUN/CREATININE RATIO 31; CALCIUM 8.5 MG/DL (8.5-10.1); CARBON DIOXIDE 28 MMOL/L (21-32); CHLORIDE 101 MMOL/L (98-107); CREATININE SERUM 0.71 MG/DL (0.60-1.30); GFR ESTIMATED > 60; GLUCOSE 104 MG/DL (70-105); MAGNESIUM 2.1 MG/DL (1.6-2.4); PHOSPHORUS 2.2 MG/DL (2.3-4.7); POTASSIUM 4.7 MMOL/L (3.6-5.0); SODIUM 139 MMOL/L (135-145)
[2019-04-15] MEDS: RT-ADVAIR HFA 115/21 MCG PER PUFF IH SCH ×2 (06:50→18:40)
[2019-04-15] MEDS: predniSONE 20 MG TAB PO SCH (07:11)
--- NOTE | 2019-04-15 07:44 | Diagnostic Imaging Report ---
CHEST 1 VIEW, AP/PA ONLY INDICATION: Dyspnea, COPD exacerbation. COMPARISON: 04/14/2019 FINDINGS: Confluent hazy opacities in right lung base are unchanged. Bandlike opacity in left lung base are similar. No pneumothorax. Trace bilateral pleural effusions are similar. Stable cardiomediastinal silhouette. IMPRESSION: 1. Stable basilar pulmonary opacities and trace pleural effusions. Dictated by: Dictated on workstation # [id number]
[2019-04-15 08:00] VITALS: BP 107/53
[2019-04-15] MEDS: ASPIRIN 81 MG CHEW (CHILDREN'S ASA) PO SCH (08:17)
[2019-04-15] MEDS: NICOTINE 21 MG (NICODERM) PATCH TD SCH (08:17)
[2019-04-15] MEDS: FUROSEMIDE 40 MG/4 ML INJ (LASIX) IVP SCH (08:18)
[2019-04-15] MEDS: NICOTINE PATCH REMOVAL TP SCH (08:18)
[2019-04-15 12:00] VITALS: BP 107/62
--- NOTE | 2019-04-15 13:33 | Progress Note - Hospitalist ---
Subjective HPI/CC On Admission Date Seen by Provider: Apr 15, 2019 Time Seen by Provider: 14:00 Chief complaint: Hypoxia HPI: This is a 58yoWM who sees Dr. Hutson for chronic narcotic dependency in the midst of addiction management who presented [facility] the [facility] hypoxia of 75%. Pt was found to be hypotensive and bradycardic and required BiPAP placement and Dr. Chapa consultation. His ABG remained re spiratory acidoticat 7.28 and CO2 of 73. At this current time Pt denies any pain. Subjective/Events-last exam Patient has no complaints but were still unable to get his oxygen down lower than 4 L nasal cannula Review of Systems Pulmonary: Dyspnea, Cough Objective Exam Vital Signs Vital Signs Date Time Temp Pulse Resp B/P (MAP) Pulse Ox O2 Delivery O2 Flow Rate FiO2 04/15/19 12:00 35.8 54 16 107/62 (77) 92 Nasal Cannula 4.00 04/13/19 04:00 45 Capillary Refill : Less Than 3 Seconds General Appearance: Chronically ill HEENT: Other Neck: Normal Inspection, Non Tender, Supple Respiratory: Decreased Breath Sounds, Rales Cardiovascular: Regular Rate, Rhythm, No Gallop, No Murmur, Normal Peripheral Pulses Gastrointestinal: Normal Bowel Sounds, Non Tender, Soft Extremity: Normal Capillary Refill, Normal Inspection, Normal Range of Motion, Non Tender, No Pedal Edema Results/Procedures Lab Laboratory Tests 04/15/19 04:40 Patient resulted labs reviewed. Imaging: Reviewed Imaging Films, Reviewed Imaging Report Assessment/Plan Assessment and Plan Assess & Plan/Chief Complaint Exacerbation of COPD-with severe emphysema Hyperglycemia secondary to steroids Constipation we'll give milk of magnesia Tobaccoism counseled Abnormal CT chest with nodularity in the left lower lobe that will require follow-up CT in 3 months Coronary artery disease with a history of a chronically occluded RCA New mild thrombocytopenia recheck in the morning Clinical Quality Measures DVT/VTE Risk/Contraindication: Risk Factor Score Per Nursin RFS Level Per Nursing on Admit: 4+=Very High GLORIA CEBALLOS MD Apr 15, 2019 13:33 POS
[2019-04-15 15:48] VITALS: BP 112/66
--- NOTE | 2019-04-15 16:27 | Progress Note - Cardiology ---
Cardiology SOAP Progress Note Subjective: Shortness of breath gradually improving No cp or palp or syncope Objective: I&O/Vital Signs 04/15/19 04/15/19 04/15/19 04/15/19 06:50 06:56 07:30 08:00 Temp 35.5 Pulse 55 51 Resp 21 18 B/P (MAP) 107/53 (71) Pulse Ox 95 94 95 97 O2 Delivery Nasal Cannula Nasal Cannula Nasal Cannula O2 Flow Rate 45.00 5.00 4.50 4.00 04/15/19 04/15/19 04/15/19 04/15/19 08:15 10:28 10:28 12:00 Temp 35.8 Pulse 70 54 Resp 16 B/P (MAP) 107/62 (77) Pulse Ox 90 90 92 O2 Delivery Nasal Cannula Nasal Cannula Nasal Cannula O2 Flow Rate 4.00 4.00 4.00 04/15/19 04/15/19 13:58 15:48 Temp 36.6 Pulse 71 Resp 20 B/P (MAP) 112/66 (81) Pulse Ox 91 94 O2 Delivery Nasal Cannula Nasal Cannula O2 Flow Rate 4.00 4.00 04/15/19 00:00 Intake Total 1720 ml Output Total 4125 ml Balance -2405 ml Weight (Pounds): 135 Weight (Ounces): 0.0 Weight (Calculated Kilograms): 61.461727 Constitutional: AAO x 3, well-developed, well-nourished, other (thin-appearing) Respiratory: No accessory muscle use; other (generally diminished air entry and prolonged exp phase) Cardiovascular: regular rate-rhythm, S1 and S2, systolic murmur (soft INNA at card base) Gastrointestional: No tender; soft; No guarding; audible bowel sounds Extremities: No clubbing, No cyanosis, No significant edema Neurologic/Psychiatric: oriented x 3, other (moves all limbs equally) Skin: No rash, No ulcerations Results/Procedures: Labs Laboratory Tests 04/15/19 04:40: White Blood Count 8.4, Red Blood Count 4.49, Hemoglobin 14.3, Hematocrit 44, Mean Corpuscular Volume 97, Mean Corpuscular Hemoglobin 32, Mean Corpuscular Hemoglobin Concent 33, Red Cell Distribution Width 12.8, Platelet Count 123L, Mean Platelet Volume 10.6H, Neutrophils (%) (Auto) 72, Lymphocytes (%) (Auto) 15, Monocytes (%) (Auto) 12, Eosinophils (%) (Auto) 0, Basophils (%) (Auto) 0, Neutrophils # (Auto) 6.0, Lymphocytes # (Auto) 1.3, Monocytes # (Auto) 1.0, Eosinophils # (Auto) 0.0, Basophils # (Auto) 0.0, Sodium Level 139, Potassium Level 4.7, Chloride Level 101, Carbon Dioxide Level 28, Anion Gap 10, Blood Urea Nitrogen 22H, Creatinine 0.71, Estimat Glomerular Filtration Rate > 60, BUN/Creatinine Ratio 31, Glucose Level 104, Calcium Level 8.5, Phosphorus Level 2.2L, Magnesium Level 2.1 Microbiology 04/11/19 Blood Culture - Preliminary, Resulted No growth 04/12/19 Urine Culture - Final, Complete NO GROWTH Laboratory Tests 04/14/19 04:24 04/15/19 04:40 A/P: Assessment: Ac exac of COPD due to lower resp tract infection Chronic tobacco use and h/o recreational drug use Minimal troponin elevation: likely type 2 [place] due hypoxemia on 04/11/19 CAD. Card cath of 04/14/18: Chronic total proximal occlusion of RCA with left to left and right to left collaterals, other coronary vessels had moderate diffuse disease, LVEF 65%, elevated LVEDP Echo on 04/13/19: LVEF 65-70%, mildly dilated atria, RVSP 35 mmHg Hypertension Plan: * Card risk factor mod advised * Continue current regimen * Monitor labs [facility]AB[facility]EL[facility] EVANS [facility] Apr 15, 2019 16:27 POS
[2019-04-15 19:41] VITALS: BP 100/55
[2019-04-15] MEDS ORDERED: cefTRIAXone 1,000 MG IV (ROCEPHIN) VIAL ONE (20:19)
[2019-04-15] MEDS ORDERED: WATER (STERILE) FOR INJECTION 10 ML ONE (20:19)
[2019-04-15] MEDS: cefTRIAXone FOR IV USE 1,000 MG in WATER (STERILE) FOR INJECTION 10 ML IV SCH (20:40)
[2019-04-16] VITALS (7 sets, daily range): BP systolic 100–124; BP diastolic 56–68
[2019-04-16] MEDS: RT-ALBUTEROL/IPRATROPIUM 3 ML (DUONEB) VIAL INH SCH ×6 (01:51→21:55)
[2019-04-16] MEDS: ENOXAPARIN 40 MG/0.4 ML (LOVENOX) SYR SC SCH (06:04)
[2019-04-16] MEDS: predniSONE 20 MG TAB PO SCH (06:05)
[2019-04-16 06:32] LABS: BASOPHILS % (AUTO) 0 % (0-10); EOSINOPHILS # (AUTO) 0.1 10^3/uL (0.0-0.3); EOSINOPHILS % (AUTO) 1 % (0-10); HEMATOCRIT 47 % (40-54); HEMOGLOBIN 15.2 G/DL (13.3-17.7); LYMPHOCYTES # (AUTO) 1.9 X 10^3 (1.0-4.0); LYMPHOCYTES % (AUTO) 18 % (12-44); MEAN CORPUSCULAR HEMOGLOBIN 31 PG (25-34); MEAN CORPUSCULAR HGB CONC 32 G/DL (32-36); MEAN CORPUSCULAR VOLUME 96 FL (80-99); MEAN PLATELET VOLUME 9.6 FL (7.4-10.4); MONOCYTES # (AUTO) 1.3 X 10^3 (0.0-1.0); MONOCYTES % (AUTO) 12 % (0-12); NEUTROPHILS # (AUTO) 7.5 X 10^3 (1.8-7.8); NEUTROPHILS % (AUTO) 69 % (42-75); PLATELET COUNT 203 10^3/uL (130-400); RED CELL DISTRIBUTION WIDTH 12.7 % (10.0-14.5); WHITE BLOOD COUNT 10.9 10^3/uL (4.3-11.0)
[2019-04-16 06:56] LABS: BUN/CREATININE RATIO 29; CALCIUM 8.7 MG/DL (8.5-10.1); CARBON DIOXIDE 31 MMOL/L (21-32); CHLORIDE 100 MMOL/L (98-107); CREATININE SERUM 0.77 MG/DL (0.60-1.30); GFR ESTIMATED > 60; GLUCOSE 103 MG/DL (70-105); MAGNESIUM 2.1 MG/DL (1.6-2.4); PHOSPHORUS 2.4 MG/DL (2.3-4.7); POTASSIUM 4.3 MMOL/L (3.6-5.0); SODIUM 138 MMOL/L (135-145)
[2019-04-16] MEDS: RT-ADVAIR HFA 115/21 MCG PER PUFF IH SCH ×2 (07:07→19:16)
[2019-04-16] MEDS: NICOTINE 21 MG (NICODERM) PATCH TD SCH (08:06)
[2019-04-16] MEDS: ASPIRIN 81 MG CHEW (CHILDREN'S ASA) PO SCH (08:06)
--- NOTE | 2019-04-16 08:18 | Diagnostic Imaging Report ---
Indication: Exacerbation of COPD Portable chest 4:37 AM There are emphysematous changes in the lungs. There are some right apical scarring. There is some discoid atelectasis in the left lower lung. IMPRESSION: COPD with some scarring and atelectasis as noted. No change from the previous day and no acute abnormality seen. Dictated by: Dictated on workstation # [id number]
[2019-04-16] MEDS: FUROSEMIDE 40 MG/4 ML INJ (LASIX) IVP SCH (09:31)
[2019-04-16] MEDS: NICOTINE PATCH REMOVAL TP SCH (09:31)
--- NOTE | 2019-04-16 13:57 | Progress Note - Cardiology ---
Cardiology SOAP Progress Note Subjective: Compared to time of admission, shortness of breath has much improved No cp or palp or syncope Objective: I&O/Vital Signs 04/16/19 04/16/19 04/16/19 04/16/19 04:00 07:02 08:00 08:00 Temp 36.6 36.7 Pulse 64 68 Resp 19 18 B/P (MAP) 124/68 (86) 110/67 (81) Pulse Ox 95 93 92 O2 Delivery Nasal Cannula Nasal Cannula Nasal Cannula Nasal Cannula O2 Flow Rate 3.50 3.50 4.00 5.00 04/16/19 04/16/19 04/16/19 11:05 12:00 13:06 Temp 36.7 36.7 Pulse 76 75 Resp 16 B/P (MAP) 105/60 (75) Pulse Ox 88 90 91 O2 Delivery Nasal Cannula Nasal Cannula O2 Flow Rate 2.50 4.00 04/16/19 00:00 Intake Total 1130 ml Output Total 3600 ml Balance -2470 ml Weight (Pounds): 135 Weight (Ounces): 0.0 Weight (Calculated Kilograms): 61.885741 Constitutional: AAO x 3, well-developed, well-nourished, other (thin-appearing) Respiratory: No accessory muscle use; other (generally diminished air entry and prolonged exp phase) Cardiovascular: regular rate-rhythm, S1 and S2, systolic murmur (soft INNA at card base) Gastrointestional: No tender; soft; No guarding; audible bowel sounds Extremities: No clubbing, No cyanosis, No significant edema Neurologic/Psychiatric: oriented x 3, other (moves all limbs equally) Skin: No rash, No ulcerations Results/Procedures: Labs Laboratory Tests 04/16/19 06:20: White Blood Count 10.9, Red Blood Count 4.93, Hemoglobin 15.2, Hematocrit 47, Mean Corpuscular Volume 96, Mean Corpuscular Hemoglobin 31, Mean Corpuscular Hemoglobin Concent 32, Red Cell Distribution Width 12.7, Platelet Count 203, Mean Platelet Volume 9.6, Neutrophils (%) (Auto) 69, Lymphocytes (%) (Auto) 18, Monocytes (%) (Auto) 12, Eosinophils (%) (Auto) 1, Basophils (%) (Auto) 0, Neutrophils # (Auto) 7.5, Lymphocytes # (Auto) 1.9, Monocytes # (Auto) 1.3H, Eosinophils # (Auto) 0.1, Basophils # (Auto) 0.0, Sodium Level 138, Potassium Level 4.3, Chloride Level 100, Carbon Dioxide Level 31, Anion Gap 7, Blood Urea Nitrogen 22H, Creatinine 0.77, Estimat Glomerular Filtration Rate > 60, BUN/Creatinine Ratio 29, Glucose Level 103, Calcium Level 8.7, Phosphorus Level 2.4, Magnesium Level 2.1 Microbiology 04/11/19 Blood Culture - Preliminary, Resulted No growth 04/12/19 Urine Culture - Final, Complete NO GROWTH Laboratory Tests 04/15/19 04:40 04/16/19 06:20 A/P: Assessment: Ac exac of COPD due to lower resp tract infection Chronic tobacco use and h/o recreational drug use Minimal troponin elevation: likely type 2 [place] due hypoxemia on 04/11/19 CAD. Card cath of 04/14/18: Chronic total proximal occlusion of RCA with left to left and right to left collaterals, other coronary vessels had moderate diffuse disease, LVEF 65%, elevated LVEDP Echo on 04/13/19: LVEF 65-70%, mildly dilated atria, RVSP 35 mmHg Hypertension Plan: * Card risk factor mod advised * Outpt f/u advised GABRIELLE EVANS MD FACP [facility] Apr 16, 2019 13:57 POS
--- NOTE | 2019-04-16 14:20 | Pulmonary Progress Note ---
Subjective Time Seen by a Provider: 14:20 Subjective/Events-last exam PT is still requiring oxygen via NC Sepsis Event Evaluation Height, Weight, BMI Height: 5'8.00" Weight: 135lbs. 0.0oz. 61.365057rf; 20.38 BMI Method: Exam Exam Vital Signs Date Time Temp Pulse Resp B/P (MAP) Pulse Ox O2 Delivery O2 Flow Rate FiO2 04/16/19 13:06 36.7 75 91 04/16/19 12:00 36.7 76 16 105/60 (75) 90 Nasal Cannula 4.00 04/16/19 11:05 88 Nasal Cannula 2.50 04/16/19 08:00 Nasal Cannula 5.00 04/16/19 08:00 36.7 68 18 110/67 (81) 92 Nasal Cannula 4.00 04/16/19 07:02 93 Nasal Cannula 3.50 04/16/19 04:00 36.6 64 19 124/68 (86) 95 Nasal Cannula 3.50 04/16/19 01:52 91 Nasal Cannula 3.00 04/16/19 00:30 36.1 56 18 109/64 (79) 96 Nasal Cannula 5.00 04/15/19 22:09 91 Nasal Cannula 3.00 04/15/19 20:30 93 Nasal Cannula 3.50 04/15/19 19:41 36.7 82 18 100/55 (70) 93 Nasal Cannula 3.50 04/15/19 18:41 90 Nasal Cannula 4.00 04/15/19 15:48 36.6 71 20 112/66 (81) 94 Nasal Cannula 4.00 I & O 04/16/19 07:00 Intake Total 1280 ml Output Total 4300 ml Balance -3020 ml Height & Weight Height: 5'8.00" Weight: 135lbs. 0.0oz. 61.545960dt; 20.38 BMI Method: General Appearance: Chronically ill, Thin HEENT: Other Neck: Normal Inspection, Non Tender, Supple Respiratory: Decreased Breath Sounds, Rales Cardiovascular: Regular Rate, Rhythm, No Gallop, No Murmur, Normal Peripheral Pulses Capillary Refill: Less Than 3 Seconds Gastrointestinal: normal bowel sounds, non tender, soft Extremity: Normal Capillary Refill, Normal Inspection, Normal Range of Motion, Non Tender, No Pedal Edema Neurologic/Psychiatric: Alert, Oriented x3, No Motor/Sensory Deficits, Depressed Affect Skin: Normal Color, Warm/Dry Results Lab Laboratory Tests 04/15/19 04:40 04/16/19 06:20 Assessment/Plan Assessment/Plan Acute on chronic respiratory failure -PT is still requiring NC -Continue Lasix -Currently on Rocephin -Cultures are negative. COPD exacerbation with hypoxia -Prednisone 40mg daily -Will probably need home 02 -duoneb Q2hr PRN Atelectasis -PT will need repeat CT of chest 8wks after discharge. Nicotine dependence -patient education SHABBIR YANG DO Apr 16, 2019 14:20 POS
--- NOTE | 2019-04-16 14:35 | NUR ---
SPO2 DROPPED TO 88% ON ROOM AIR. REPLACED O2 @ 3.5 LPM. SPO2 INCREASED TO 91%. Addendum: 04/16/19 at 1451 by RONALDO LINARES RT Amended: Links added.
--- NOTE | 2019-04-16 17:14 | Progress Note ---
Subjective Subjective/Events-last exam Seen at 1253 pm. Reports feeling pretty well, hoping to go home soon, but is still on 3-4 lpm supplemental oxygen. Objective Exam Last Set of Vital Signs Vital Signs Date Time Temp Pulse Resp B/P (MAP) Pulse Ox O2 Delivery O2 Flow Rate FiO2 04/16/19 15:40 36.8 68 20 100/56 (71) 94 Nasal Cannula 3.50 04/13/19 04:00 45 Capillary Refill : Less Than 3 Seconds I&O Intake and Output 04/16/19 00:00 Intake Total 1230 ml Output Total 4150 ml Balance -2920 ml Intake Oral 1230 ml Output Urine Total 4150 ml General: Alert, No Acute Distress Lungs: Clear to Auscultation, Normal Air Movement Heart: Regular Rate, No Murmurs Extremities: No Edema Neuro: Normal Speech Results/Procedures Lab Laboratory Tests 04/16/19 06:20: White Blood Count 10.9, Red Blood Count 4.93, Hemoglobin 15.2, Hematocrit 47, Mean Corpuscular Volume 96, Mean Corpuscular Hemoglobin 31, Mean Corpuscular Hemoglobin Concent 32, Red Cell Distribution Width 12.7, Platelet Count 203, Mean Platelet Volume 9.6, Neutrophils (%) (Auto) 69, Lymphocytes (%) (Auto) 18, Monocytes (%) (Auto) 12, Eosinophils (%) (Auto) 1, Basophils (%) (Auto) 0, Neutrophils # (Auto) 7.5, Lymphocytes # (Auto) 1.9, Monocytes # (Auto) 1.3H, Eosinophils # (Auto) 0.1, Basophils # (Auto) 0.0, Sodium Level 138, Potassium Level 4.3, Chloride Level 100, Carbon Dioxide Level 31, Anion Gap 7, Blood Urea Nitrogen 22H, Creatinine 0.77, Estimat Glomerular Filtration Rate > 60, BUN/Creatinine Ratio 29, Glucose Level 103, Calcium Level 8.7, Phosphorus Level 2.4, Magnesium Level 2.1 04/16/19 14:57: B-Type Natriuretic Peptide 95.7 Microbiology 04/11/19 Blood Culture - Preliminary, Resulted No growth 04/12/19 Urine Culture - Final, Complete NO GROWTH Assessment/Plan Assessment/Plan (1) COPD exacerbation Status: Acute Assessment & Plan: Currently on prednisone, Advair, Duonebs and ceftriaxone. Clinically improved but still requiring 3-4 lpm supplemental oxygen, will obtain home O2 qualification studies. (2) COPD (chronic obstructive pulmonary disease) (3) Atelectasis of left lung (4) Coronary artery disease Status: Chronic Assessment & Plan: Stable, appreciate Cardiology recommendations. Qualifiers: (5) Opiate dependence Status: Chronic Assessment & Plan: On MAT, has not been receiving inpatient, will follow up with [facility]. (6) DVT prophylaxis Status: Acute Assessment & Plan: Enoxaparin Clinical Quality Measures DVT/VTE Risk/Contraindication: Risk Factor Score Per Nursin RFS Level Per Nursing on Admit: 4+=Very High ANNITA ALBERT MD Apr 16, 2019 17:14 POS
[2019-04-16] MEDS ORDERED: WATER (STERILE) FOR INJECTION 10 ML ONE (20:50)
[2019-04-16] MEDS ORDERED: cefTRIAXone 1,000 MG IV (ROCEPHIN) VIAL ONE (20:50)
[2019-04-16] MEDS: cefTRIAXone FOR IV USE 1,000 MG in WATER (STERILE) FOR INJECTION 10 ML IV SCH (21:00)
[2019-04-17 00:18] VITALS: BP_SYST 119; BP_SYST 135; BP_DIAS 65; BP_DIAS 74
[2019-04-17] MEDS: RT-ALBUTEROL/IPRATROPIUM 3 ML (DUONEB) VIAL INH SCH ×4 (01:41→13:13)
[2019-04-17 04:15] VITALS: BP 109/69
[2019-04-17] MEDS: ENOXAPARIN 40 MG/0.4 ML (LOVENOX) SYR SC SCH (05:50)
[2019-04-17] MEDS: predniSONE 20 MG TAB PO SCH (05:51)
--- NOTE | 2019-04-17 06:15 | Pulmonary Progress Note ---
Subjective Time Seen by a Provider: 06:15 Subjective/Events-last exam Pt will need home 02. Sepsis Event Evaluation Height, Weight, BMI Height: 5'8.00" Weight: 135lbs. 0.0oz. 61.936676zv; 20.38 BMI Method: Exam Exam Vital Signs Date Time Temp Pulse Resp B/P (MAP) Pulse Ox O2 Delivery O2 Flow Rate FiO2 04/17/19 04:15 35.7 61 20 109/69 (82) 91 Nasal Cannula 3.50 04/17/19 01:42 95 Nasal Cannula 3.50 04/17/19 00:18 36.4 71 18 119/74 (89) 97 Nasal Cannula 3.50 04/16/19 21:56 93 Nasal Cannula 3.50 04/16/19 20:30 95 Nasal Cannula 3.00 04/16/19 20:07 36.7 70 18 106/62 (77) 94 Nasal Cannula 3.50 04/16/19 19:18 90 Nasal Cannula 3.50 04/16/19 15:40 36.8 68 20 100/56 (71) 94 Nasal Cannula 3.50 04/16/19 14:39 91 Nasal Cannula 3.50 04/16/19 14:35 90 3.50 04/16/19 13:06 36.7 75 91 04/16/19 12:00 36.7 76 16 105/60 (75) 90 Nasal Cannula 4.00 04/16/19 11:05 88 Nasal Cannula 2.50 04/16/19 08:00 Nasal Cannula 5.00 04/16/19 08:00 36.7 68 18 110/67 (81) 92 Nasal Cannula 4.00 04/16/19 07:02 93 Nasal Cannula 3.50 I & O 04/17/19 07:00 Intake Total 1990 ml Output Total 3400 ml Balance -1410 ml Height & Weight Height: 5'8.00" Weight: 135lbs. 0.0oz. 61.180293we; 20.38 BMI Method: General Appearance: Anxious, Chronically ill, Mild Distress HEENT: PERRL/EOMI, Pharynx Normal, Moist Mucous Membranes Neck: Non Tender, Supple Respiratory: Accessory Muscle Use, Crackles, Decreased Breath Sounds, Wheezing (diffuse ) Cardiovascular: Regular Rate, Rhythm Capillary Refill: Less Than 3 Seconds Gastrointestinal: normal bowel sounds, non tender, soft Extremity: No Calf Tenderness, No Pedal Edema Neurologic/Psychiatric: Alert, Oriented x3 Skin: Normal Color, Warm/Dry Results Lab Laboratory Tests 04/16/19 06:20 Assessment/Plan Assessment/Plan Acute on chronic respiratory failure -Will need home 02 -Currently on Rocephin -Cultures are negative. COPD exacerbation with hypoxia -Currently on Prednisone 40mg daily -Will change to long prednisone taper secondary to persistent wheezing and hypoxia. -CXR shows persistent RLL >LLL atelectasis infiltration. This was not there on initial imaging upon admission. Possible mucous plugging. -Change Rocephin to Omnicef x 3 days. He will need repeat CT of chest in 8 wks. -Will need home 02 -duoneb Q2hr PRN Atelectasis -PT will need repeat CT of chest 8wks after discharge. Nicotine dependence -patient education Pt is ok for discharge from pulmonary standpoint with home oxygen, Prendisone taper, and Omnicef x 3 more days. I will see him in office in 1-2 wks and arrange for repeat CT of chest. SHABBIR YANG DO Apr 17, 2019 06:15 POS
[2019-04-17 06:28] LABS: BASOPHILS % (AUTO) 0 % (0-10); EOSINOPHILS # (AUTO) 0.2 10^3/uL (0.0-0.3); EOSINOPHILS % (AUTO) 2 % (0-10); HEMATOCRIT 50 % (40-54); HEMOGLOBIN 16.3 G/DL (13.3-17.7); LYMPHOCYTES # (AUTO) 2.1 X 10^3 (1.0-4.0); LYMPHOCYTES % (AUTO) 18 % (12-44); MEAN CORPUSCULAR HEMOGLOBIN 31 PG (25-34); MEAN CORPUSCULAR HGB CONC 33 G/DL (32-36); MEAN CORPUSCULAR VOLUME 95 FL (80-99); MEAN PLATELET VOLUME 9.8 FL (7.4-10.4); MONOCYTES # (AUTO) 1.2 X 10^3 (0.0-1.0); MONOCYTES % (AUTO) 10 % (0-12); NEUTROPHILS % (AUTO) 69 % (42-75); PLATELET COUNT 217 10^3/uL (130-400); WHITE BLOOD COUNT 11.5 10^3/uL (4.3-11.0)
[2019-04-17] MEDS: RT-ADVAIR HFA 115/21 MCG PER PUFF IH SCH (06:32)
[2019-04-17 06:55] LABS: BUN/CREATININE RATIO 34; CALCIUM 8.8 MG/DL (8.5-10.1); CARBON DIOXIDE 29 MMOL/L (21-32); CHLORIDE 99 MMOL/L (98-107); CREATININE SERUM 0.77 MG/DL (0.60-1.30); GFR ESTIMATED > 60; GLUCOSE 98 MG/DL (70-105); MAGNESIUM 2.1 MG/DL (1.6-2.4); PHOSPHORUS 3.2 MG/DL (2.3-4.7); POTASSIUM 4.3 MMOL/L (3.6-5.0); SODIUM 136 MMOL/L (135-145)
[2019-04-17 08:04] VITALS: BP 96/58
[2019-04-17] MEDS: ASPIRIN 81 MG CHEW (CHILDREN'S ASA) PO SCH (08:27)
[2019-04-17] MEDS: NICOTINE 21 MG (NICODERM) PATCH TD SCH (08:29)
[2019-04-17] MEDS: NICOTINE PATCH REMOVAL TP SCH (08:30)
--- NOTE | 2019-04-17 08:51 | Progress Note - Cardiology ---
Cardiology SOAP Progress Note Subjective: Sitting up in bed. Wants to go home. Feels breathing is better. Reports occ cough. No c/o CP, palpitations. Objective: I&O/Vital Signs Weight (Pounds): 135 Weight (Ounces): 0.0 Weight (Calculated Kilograms): 61.938879 Constitutional: AAO x 3, well-developed, well-nourished, other (thin-appearing) Respiratory: No accessory muscle use; other (generally diminished air entry and prolonged exp phase) Cardiovascular: regular rate-rhythm, S1 and S2, systolic murmur (soft INNA at card base) Gastrointestional: No tender; soft; No guarding; audible bowel sounds Extremities: No clubbing, No cyanosis, No significant edema Neurologic/Psychiatric: oriented x 3, other (moves all limbs equally) Skin: No rash, No ulcerations Results/Procedures: Labs Microbiology 04/11/19 Blood Culture - Final, Complete No growth 04/12/19 Urine Culture - Final, Complete NO GROWTH A/P: Assessment: Ac exac of COPD due to lower resp tract infection Chronic tobacco use and h/o recreational drug use Minimal troponin elevation: likely type 2 [place] due hypoxemia on 04/11/19 CAD. Card cath of 04/14/18: Chronic total proximal occlusion of RCA with left to left and right to left collaterals, other coronary vessels had moderate diffuse disease, LVEF 65%, elevated LVEDP Echo on 04/13/19: LVEF 65-70%, mildly dilated atria, RVSP 35 mmHg Hypertension Plan: * Card risk factor mod advised * Toprol being held intermittently d/t somewhat low (albeit asymptomatic) BP; will reduce dose to 12.5mg daily * Outpt f/u advised * Ok to discharge home from cardiac stand point with out pt f/u ROMMEL WEBER [facility] Apr 17, 2019 08:51 POS
[2019-04-17] MEDS ORDERED: METO-351 PO (08:55)
[2019-04-17] MEDS ORDERED: ASPI-999 PO (08:55)
[2019-04-17] MEDS ORDERED: predniSONE 10 MG TAB PO SCH (09:00)
[2019-04-17] MEDS ORDERED: CEFDINIR 300 MG (OMNICEF) CAP PO SCH (09:00)
[2019-04-17 11:23] VITALS: BP 104/68
[2019-04-17] MEDS ORDERED: CEFD300C3 PO (13:22)
[2019-04-17] MEDS ORDERED: FLUT12AE4 IH (13:22)
[2019-04-17] MEDS ORDERED: PRD10T PO (13:22)
--- NOTE | 2019-04-17 13:29 | Discharge Summary ---
Discharge Summary Hospital Course Problems Reviewed?: Yes Problems/Diagnosis: (1) COPD exacerbation Status: Acute Assessment & Plan: Discharged on prednisone taper, Advair, albuterol and cefdinir x 3 more days. Required supplemental oxygen on d/c which was ordered. (2) COPD (chronic obstructive pulmonary disease) Status: Chronic Assessment & Plan: Seen by Dr. Chapa inpatient and follow up appointment set up. (3) Atelectasis of left lung Status: Acute Assessment & Plan: Needs repeat CT of chest in [address] Chapa. (4) Coronary artery disease Status: Chronic Assessment & Plan: Stable, appreciate Cardiology recommendations. Echo on 04/13/19: LVEF 65-70%, mildly dilated atria, RVSP 35 mmHg. Minimal elevated troponin thought to be secondary to type II ND related to hypoxemia. Outpatient Cardiology follow up scheduled. Qualifiers: (5) Opiate dependence Status: Chronic Assessment & Plan: On MAT, reports he has medication for home, will follow up with [facility]. Hospital Course Date of Admission: Apr 11, 2019 at 19:50 Admission Diagnosis : Family Physician/Provider: Sriram Dunog MD Date of Discharge: 04/17/19 Discharge Diagnosis: See problem list Hospital Course: See problem list Labs and Pending Lab Test: Laboratory Tests 04/16/19 14:57: B-Type Natriuretic Peptide 95.7 04/17/19 06:05: White Blood Count 11.5H, Red Blood Count 5.28, Hemoglobin 16.3, Hematocrit 50, Mean Corpuscular Volume 95, Mean Corpuscular Hemoglobin 31, Mean Corpuscular Hemoglobin Concent 33, Red Cell Distribution Width 13.0, Platelet Count 217, Mean Platelet Volume 9.8, Neutrophils (%) (Auto) 69, Lymphocytes (%) (Auto) 18, Monocytes (%) (Auto) 10, Eosinophils (%) (Auto) 2, Basophils (%) (Auto) 0, Neutrophils # (Auto) 8.0H, Lymphocytes # (Auto) 2.1, Monocytes # (Auto) 1.2H, Eosinophils # (Auto) 0.2, Basophils # (Auto) 0.0, Sodium Level 136, Potassium Level 4.3, Chloride Level 99, Carbon Dioxide Level 29, Anion Gap 8, Blood Urea Nitrogen 26H, Creatinine 0.77, Estimat Glomerular Filtration Rate > 60, BUN/Creatinine Ratio 34, Glucose Level 98, Calcium Level 8.8, Phosphorus Level 3.2, Magnesium Level 2.1 Microbiology 04/11/19 Blood Culture - Final, Complete No growth 04/12/19 Urine Culture - Final, Complete NO GROWTH Home Meds Active Prednisone 10 Mg Tab 60 Mg PO DAILY Take 6 tabs(60mg)daily, decrease by 1 tab(10mg) every other day. Advair Hfa 115-21 Mcg Inhaler (Fluticasone/Salmeterol) 12 Gm Hfa.aer.ad 2 Puff IH BID@08,20 Cefdinir 300 Mg Capsule 300 Mg PO BID 3 Days Toprol Xl (Metoprolol Succinate) 25 Mg Tab.er.24h 12.5 Mg PO DAILY Aspirin 81 Mg Tab.chew 81 Mg PO DAILY@0900 Reported Buprenorphin-Naloxon 8-2 mg Sl (Buprenorphine HCl/Naloxone HCl) 1 Each Tab.subl 2.5 Tab SL DAILY Proair Hfa (Albuterol Sulfate) 1 Puff Puff 2 Puff IH Q4H PRN Atorvastatin Calcium 20 Mg Tablet 20 Mg PO HS Assessment/Pt DC Instructions Follow up with Darlyn Cardenas on 04/20 at 3:30 pm. Follow up with Dr. Duong on 04/20 at 4:40 pm. Follow up with Dr. Chicas and Dr. Chapa as scheduled. Discharge Diet: Cardiac Diet Activity as Tolerated: Yes Orders-Post D/C & Referrals Home oxygen at 3.5 lpm Discharge Physical Examination Allergies: Coded Allergies: No Allergy Information Available (Unverified , 02/14/18) General Appearance: No Apparent Distress Respiratory: Lungs Clear, Decreased Breath Sounds Cardiovascular: Regular Rate, Rhythm, No Murmur Gastrointestinal: Normal Bowel Sounds, Non Tender, Soft Skin: Normal Color, Warm/Dry Neurologic/Psychiatric: Alert, Normal Mood/Affect Copy Copies To 1: SRIRAM DUONG MD Discharge Summary Date of Admission Apr 11, 2019 at 19:50 Date of Discharge Admission Diagnosis Bipap Appreciate Dr Chapa Discharge Diagnosis (1) COPD exacerbation Status: Acute (2) Hypoxemia Status: Acute Clinical Quality Measures DVT/VTE Risk/Contraindication: Risk Factor Score Per Nursin RFS Level Per Nursing on Admit: 4+=Very High ANNITA ALBERT MD Apr 17, 2019 13:28 POS
--- NOTE | 2019-04-17 15:00 | NUR ---
CM DISCHARGE PLAN: Patient discharging home today with new need for oxygen. He is listed as self pay et financial services has visited with him about financial paperwork. Referral sent to [facility] as they are our provider that works with us for self pay patients. They will deliver a portable tank to his room. He denies any further needs at this time.
--- NOTE | 2019-04-17 15:08 | Progress Note - Cardiology ---
Cardiology SOAP Progress Note Subjective: Shortness of breath better than before No cp or palp or syncope Objective: I&O/Vital Signs 04/17/19 04/17/19 04/17/19 04/17/19 04:15 06:32 06:37 08:00 Temp 35.7 Pulse 61 Resp 20 B/P (MAP) 109/69 (82) Pulse Ox 91 91 94 O2 Delivery Nasal Cannula Nasal Cannula Nasal Cannula Nasal Cannula O2 Flow Rate 3.50 3.50 3.50 3.50 04/17/19 04/17/19 04/17/19 04/17/19 08:04 09:32 11:23 13:14 Temp 36.9 36.5 Pulse 70 70 Resp 18 18 B/P (MAP) 96/58 (71) 104/68 (80) Pulse Ox 94 91 93 91 O2 Delivery Nasal Cannula Nasal Cannula Nasal Cannula Nasal Cannula O2 Flow Rate 3.50 3.50 3.50 3.50 04/17/19 00:00 Intake Total 1990 ml Output Total 3400 ml Balance -1410 ml Weight (Pounds): 135 Weight (Ounces): 0.0 Weight (Calculated Kilograms): 61.361444 Constitutional: AAO x 3, well-developed, well-nourished, other (thin-appearing) Respiratory: No accessory muscle use; other (generally diminished air entry and prolonged exp phase) Cardiovascular: regular rate-rhythm, S1 and S2, systolic murmur (soft INNA at card base) Gastrointestional: No tender; soft; No guarding; audible bowel sounds Extremities: No clubbing, No cyanosis, No significant edema Neurologic/Psychiatric: oriented x 3, other (moves all limbs equally) Skin: No rash, No ulcerations Results/Procedures: Labs Laboratory Tests 04/17/19 06:05: White Blood Count 11.5H, Red Blood Count 5.28, Hemoglobin 16.3, Hematocrit 50, Mean Corpuscular Volume 95, Mean Corpuscular Hemoglobin 31, Mean Corpuscular Hemoglobin Concent 33, Red Cell Distribution Width 13.0, Platelet Count 217, Mean Platelet Volume 9.8, Neutrophils (%) (Auto) 69, Lymphocytes (%) (Auto) 18, Monocytes (%) (Auto) 10, Eosinophils (%) (Auto) 2, Basophils (%) (Auto) 0, Neutrophils # (Auto) 8.0H, Lymphocytes # (Auto) 2.1, Monocytes # (Auto) 1.2H, Eosinophils # (Auto) 0.2, Basophils # (Auto) 0.0, Sodium Level 136, Potassium Level 4.3, Chloride Level 99, Carbon Dioxide Level 29, Anion Gap 8, Blood Urea Nitrogen 26H, Creatinine 0.77, Estimat Glomerular Filtration Rate > 60, BUN/Creatinine Ratio 34, Glucose Level 98, Calcium Level 8.8, Phosphorus Level 3.2, Magnesium Level 2.1 Microbiology 04/11/19 Blood Culture - Final, Complete No growth 04/12/19 Urine Culture - Final, Complete NO GROWTH Laboratory Tests 04/16/19 06:20 04/17/19 06:05 A/P: Assessment: Ac exac of COPD due to lower resp tract infection Chronic tobacco use and h/o recreational drug use Minimal troponin elevation: likely type 2 [place] due hypoxemia on 04/11/19 CAD. Card cath of 04/14/18: Chronic total proximal occlusion of RCA with left to left and right to left collaterals, other coronary vessels had moderate diffuse disease, LVEF 65%, elevated LVEDP Echo on 04/13/19: LVEF 65-70%, mildly dilated atria, RVSP 35 mmHg Hypertension Plan: * Card risk factor mod has been reviewed and advised (including cessation of tobacco and recreational drug use) * Toprol being held intermittently d/t somewhat low (albeit asymptomatic) BP; will reduce dose to 12.5mg daily * Outpt f/u advised * Ok to discharge home from cardiac stand point with out pt f/u GABRIELLE EVANS MD FACP [facility] Apr 17, 2019 15:08 POS
[2019-04-17 16:45] VITALS: BP 104/68
== END 2019-04-17 16:45 | disposition home or self-care (01) | DRG 189 ==
LOC: EDUNIT# 15:56 → ER 15:58 → UNDOADMIN 19:50 → ICU 19:50 → 4TH 19:50
PROVIDERS: ADMIT Internal Medicine; ATTEND Family Medicine
DX: J96.21 Acute and chronic respiratory failure with hypoxia (principal); J43.9 Emphysema, unspecified; F17.210 Nicotine dependence, cigarettes, uncomplicated; E78.00 Pure hypercholesterolemia, unspecified; I10 Essential (primary) hypertension; E87.5 Hyperkalemia; I25.10 Atherosclerotic heart disease of native coronary artery without angina pectoris; I25.82 Chronic total occlusion of coronary artery; I21.A1 Myocardial infarction type 2; K59.00 Constipation, unspecified; R73.9 Hyperglycemia, unspecified; J98.11 Atelectasis; D69.6 Thrombocytopenia, unspecified; R91.1 Solitary pulmonary nodule; T38.0X5A Adverse effect of glucocorticoids and synthetic analogues, initial encounter
CPT/HCPCS: 36415; 36600; 71045; 71275; 80048; 80053; 80061; 80306; 81000; 82805; 83605; 83735; 83874; 83880; 84100; 84484; 85007; 85025; 85027; 85379; 85610; 85730; 87040; 87088; 93005; 93041; 93306; 94640; 94660; 94760; 94761; 96374; 96375

== ENCOUNTER → 2019-05-25 | Outpatient (CLI) | payer OTHER ==
[~2019-05-25] MED LIST changes: +ASPI-999 PO; +BUPR1TAB45 SL; +CATHETER FLUSH 10 ML SYR IV PRN; +CEFD300C3 PO; +FLUT12AE4 IH; +HOLD METFORMIN - RECEIVED CONTRAST 20 ML VIAL IV SCH; +IOHEXOL 350 MG/ML 100 ML (OMNIPAQUE 350) VIAL IV ONE; +NS 100 ML (IVPB) BAG IV ONE; +PRD10T PO; +RT-ALBUTEROL SULF 2.5 MG/3 ML PRE-MIX VIAL INH ONE; +RT-ALBUTEROL SULF 2.5 MG/3 ML PRE-MIX VIAL ONE
[2019-05-25 08:32] LABS: BUN/CREATININE RATIO 19; GFR ESTIMATED > 60
--- NOTE | 2019-05-25 10:59 | Diagnostic Imaging Report ---
EXAMINATION: CT Chest with intravenous contrast. TECHNIQUE: Multiple contiguous axial images were obtained through the chest after the uneventful administration of intravenous contrast. All CT scans use one or more of the following dose optimizing techniques: automated exposure control, MA and/or KvP adjustment based on a patient size and exam type, or iterative reconstruction. HISTORY: Cough and dyspnea. COMPARISON: 04/11/2019 FINDINGS: Lungs are severely emphysematous. Nodular area in the left lower lobe is improved from prior exam but there is persistent left lower lobe groundglass and septal line thickening. There is bronchial wall thickening and mucous plugging. No pleural effusion or pneumothorax. No suspicious nodules. Heart size is normal. No pericardial effusion. Aorta is normal in caliber. There is no axillary or supraclavicular lymphadenopathy. There is no mediastinal lymphadenopathy. Limited views of the upper abdomen are unremarkable. There are no suspicious osseous lesions. IMPRESSION: 1. Nodular area in the left lower lobe in keeping with resolved atelectasis. 2. Persistent left lower lobe groundglass and septal line thickening with bronchial wall thickening and mucous plugging. Findings keeping with chronic bronchitis. Dictated by: Dictated on workstation # [id number]
== END ==
LOC: RT 08:00
PROVIDERS: ATTEND Nurse Practitioner Family
DX: J44.9 Chronic obstructive pulmonary disease, unspecified (principal); J30.9 Allergic rhinitis, unspecified; J96.20 Acute and chronic respiratory failure, unspecified whether with hypoxia or hypercapnia; Z72.0 Tobacco use
CPT/HCPCS: 36415; 71260; 82565; 84520; 94060; 94726; 94729

== ENCOUNTER → 2020-08-11 | Outpatient (CLI) | payer MEDICAID ==
[~2020-08-11] MED LIST changes: -CATHETER FLUSH 10 ML SYR IV PRN; -HOLD METFORMIN - RECEIVED CONTRAST 20 ML VIAL IV SCH; -IOHEXOL 350 MG/ML 100 ML (OMNIPAQUE 350) VIAL IV ONE; -NS 100 ML (IVPB) BAG IV ONE; -RT-ALBUTEROL SULF 2.5 MG/3 ML PRE-MIX VIAL INH ONE; -RT-ALBUTEROL SULF 2.5 MG/3 ML PRE-MIX VIAL ONE
--- NOTE | 2020-08-11 08:20 | Diagnostic Imaging Report ---
EXAMINATION: CT Chest without contrast (lung screening). TECHNIQUE: Multiple contiguous axial images were obtained through the chest without the use of intravenous contrast according to lung cancer screening protocol. All CT scans use one or more of the following dose optimizing techniques: automated exposure control, MA and/or KvP adjustment based on a patient size and exam type, or iterative reconstruction. HISTORY: 52 pack year history of smoking. COMPARISON: CT chest 05/25/2019. FINDINGS: Thyroid: The thyroid is normal. Mediastinum: Heart size is normal without significant pericardial effusion. Calcifications of the aorta and coronary vessels. Thoracic aorta is normal in caliber. No suspicious lymphadenopathy. Lungs and airways: Background findings of COPD with bilateral upper lobe scarring and bullous change. No consolidation, pleural effusion, or pneumothorax. No suspicious pulmonary nodule. The airways are normal. Upper abdomen: The subphrenic structures are normal. Musculoskeletal: Degenerative changes of the spine without suspicious osseous lesion or compression fracture. IMPRESSION: 1. No suspicious pulmonary nodules. Recommend continued annual low-dose CT screening. 2. Stable findings of COPD. LUNG-RADS CATEGORY: 1 MODIFIER: S Dictated by: Dictated on workstation # [id number]
== END ==
LOC: RAD 07:45
PROVIDERS: ATTEND Nurse Practitioner Family
DX: Z12.2 Encounter for screening for malignant neoplasm of respiratory organs (principal); J44.9 Chronic obstructive pulmonary disease, unspecified; Z87.891 Personal history of nicotine dependence
CPT/HCPCS: 71271

== ENCOUNTER 2020-11-06 09:29 | Emergency (ER) | payer MEDICAID ==
[~2020-11-06] VITALS: Ht 167.7 cm; Wt 63.5 kg
--- NOTE | 2020-11-06 09:49 | ED Respiratory ---
General Chief Complaint: Respiratory Problems Stated Complaint: SOB Nursing Triage Note: Pt to ED in wheelchair. Pt reports SOB that has increased over the last two days. Pt c/o dizzy spells and hot flashes. Pt reports hx of COPD. Source: patient Exam Limitations: no limitations History of Present Illness Date Seen by Provider: Nov 06, 2020 Time Seen by Provider: 09:35 Initial Comments Patient is a 60-year-old male with a history of COPD who presents to the emergency department today with a chief complaint of increasing shortness of breath over the last couple of days. Patient states that he is felt a little lightheaded and dizzy with his shortness of breath. He has an occasionally p roductive cough that is a little worse than normal. He denies fevers or chills. He states he has been a little bit congested. No nausea, vomiting, diarrhea. No urinary complaints. No swelling in his legs. He states he occasionally has cramps in his legs. He denies chest pain. He states that he wears 3 L of oxygen at home. He has been having to use his ProAir inhaler little bit more often in the last couple of days because he ran out of his Advair. All other review of systems reviewed and negative except as stated above. Timing/Duration: week Severity: moderate Prior Episodes/Possible Cause: occasional episodes Modifying Factors: Improves With Albuterol Inhaler Associated Symptoms: dizziness, lightheadedness Allergies and Home Medications Allergies Coded Allergies: No Allergy Information Available (Unverified , 02/14/18) Home Medications Albuterol Sulfate 1 Puff Puff, 2 PUFF IH Q4H PRN for SHORTNESS OF BREATH, (Reported) Aspirin 81 Mg Tab.chew, 81 MG PO DAILY@0900 Prescribed by: ROMMEL WEBER on 04/17/19 0855 Atorvastatin Calcium 20 Mg Tablet, 20 MG PO HS, (Reported) Buprenorphine HCl/Naloxone HCl 1 Each Tab.subl, 2.5 TAB SL DAILY, (Reported) Cefdinir 300 Mg Capsule, 300 MG PO BID Prescribed by: ANNITA ALBERT on 04/17/19 1322 Fluticasone/Salmeterol 12 Gm Hfa.aer.ad, 2 PUFF IH BID@08,20 Prescribed by: NANITA ALBERT on 04/17/19 1322 Metoprolol Succinate 25 Mg Tab.er.24h, 12.5 MG PO DAILY Prescribed by: ROMMEL WEBER on 04/17/19 0855 Prednisone 10 Mg Tab, 60 MG PO DAILY Take 6 tabs(60mg)daily, decrease by 1 tab(10mg) every other day. Prescribed by: ANNITA ALBERT on 04/17/19 1322 Patient Home Medication List Home Medication List Reviewed: Yes Review of Systems Review of Systems Constitutional: see HPI EENTM: nose congestion Respiratory: phlegm, short of breath Cardiovascular: no symptoms reported Gastrointestinal: no symptoms reported Genitourinary: no symptoms reported Musculoskeletal: no symptoms reported Skin: no symptoms reported All Other Systems Reviewed Negative Unless Noted: Yes Past Yhcpkre-Willho-Hmoljy Hx Patient Social History Alcohol Use: Denies Use Smoking Status: Former Smoker Type Used: Cigarettes Former Smoker, Quit: Aug 04, 2020 2nd Hand Smoke Exposure: No Recent Infectious Disease Expo: No Recent Hopitalizations: No Immunizations Up To Date Date of Influenza Vaccine: Feb 04, 2019 Seasonal Allergies Seasonal Allergies: No Past Medical History Surgeries: Yes (RT HAND FINGERS) Orthopedic Respiratory: Yes COPD Currently Using CPAP: No Currently Using BIPAP: No Cardiac: Yes High Cholesterol, Hypertension Neurological: No Genitourinary: No Gastrointestinal: No Endocrine: No Cancer: No Psychosocial: No Integumentary: No Physical Exam Vital Signs - First Documented 11/06/20 11/06/20 09:30 11:21 Temp 35.7 Pulse 75 Resp 25 B/P (MAP) 208/93 (131) Pulse Ox 98 O2 Delivery Room Air O2 Flow Rate 3.00 Capillary Refill : Less Than 3 Seconds Height: 5'8.00" Weight: 135lbs. 0.0oz. 61.231234pt; 22.00 BMI Method: General Appearance: WD/WN, no apparent distress Eyes: Bilateral Eye Normal Inspection Respiratory: decreased breath sounds, wheezing Cardiovascular: regular rate, rhythm Gastrointestinal: non tender, soft Extremities: non-tender, normal inspection, no pedal edema Neurologic/Psychiatric: alert, normal mood/affect, oriented x 3 Skin: normal color, warm/dry Progress/Results/Core Measures Suspected Sepsis Recent Fever Within 48 Hours: No Infection Criteria Present: None New/Unexplained Altered Menta: No Sepsis Screen: No Definite Risk SIRS Temperature: Pulse: 75 Respiratory Rate: 25 Laboratory Tests 11/06/20 09:44: White Blood Count 6.9 Blood Pressure 208 /93 Mean: 131 Laboratory Tests 11/06/20 09:44: Creatinine 0.79, Platelet Count 186 Results/Orders Lab Results Laboratory Tests Test 11/06/20 09:44 Range/Units White Blood Count 6.9 4.3-11.0 10^3/uL Red Blood Count 5.06 4.30-5.52 10^6/uL Hemoglobin 15.6 13.3-17.7 g/dL Hematocrit 45 40-54 % Mean Corpuscular Volume 89 80-99 fL Mean Corpuscular Hemoglobin 31 25-34 pg Mean Corpuscular Hemoglobin Concent 35 32-36 g/dL Red Cell Distribution Width 11.9 10.0-14.5 % Platelet Count 186 130-400 10^3/uL Mean Platelet Volume 9.3 9.0-12.2 fL Immature Granulocyte % (Auto) 1 % Neutrophils (%) (Auto) 68 42-75 % Lymphocytes (%) (Auto) 17 12-44 % Monocytes (%) (Auto) 10 0-12 % Eosinophils (%) (Auto) 4 0-10 % Basophils (%) (Auto) 1 0-10 % Neutrophils # (Auto) 4.7 1.8-7.8 10^3/uL Lymphocytes # (Auto) 1.2 1.0-4.0 10^3/uL Monocytes # (Auto) 0.7 0.0-1.0 10^3/uL Eosinophils # (Auto) 0.3 0.0-0.3 10^3/uL Basophils # (Auto) 0.1 0.0-0.1 10^3/uL Immature Granulocyte # (Auto) 0.0 0.0-0.1 10^3/uL Sodium Level 137 135-145 MMOL/L Potassium Level 4.6 3.6-5.0 MMOL/L Chloride Level 103 98-107 MMOL/L Carbon Dioxide Level 27 21-32 MMOL/L Anion Gap 7 5-14 MMOL/L Blood Urea Nitrogen 12 7-18 MG/DL Creatinine 0.79 0.60-1.30 MG/DL Estimat Glomerular Filtration Rate > 60 BUN/Creatinine Ratio 15 Glucose Level 92 70-105 MG/DL Calcium Level 9.4 8.5-10.1 MG/DL My Orders Orders - SUREKHA MARSHALL MD Cbc With Automated Diff (11/06/20 09:50) Basic Metabolic Panel (11/06/20 09:50) Ekg Tracing (11/06/20 09:50) Chest 1 View, Ap/Pa Only (11/06/20 09:50) Albuterol/Ipra Inhalation Soln (Duoneb I (11/06/20 11:00) Svn Small Volume Nebulizer (11/06/20 10:51) Methylprednisolone Sod Succ (Solu-Medrol (11/06/20 11:00) Medications Given in ED Current Medications Medications Dose Ordered Sig/Kendrick Route Start Time Stop Time Status Last Admin Dose Admin Albuterol/ Ipratropium 3 ml ONCE ONCE INH 11/06/20 11:00 11/06/20 11:01 DC 11/06/20 11:21 3 ML Methylprednisolone Sodium Succinate 125 mg ONCE ONCE IM 11/06/20 11:00 11/06/20 11:01 DC 11/06/20 11:07 125 MG Vital Signs/I&O 11/06/20 11/06/20 09:30 11:21 Temp 35.7 Pulse 75 Resp 25 B/P (MAP) 208/93 (131) Pulse Ox 98 97 O2 Delivery Room Air Nasal Cannula O2 Flow Rate 3.00 Capillary Refill : Less Than 3 Seconds Blood Pressure Mean: 131 Progress Note : Time: 11:26 Progress Note Patient resting comfortably in no acute distress on his 3 L per nasal cannula of oxygen. Labs have been reviewed and are unremarkable/reassuring. Chest x-ray shows may be some mild interstitial edema. No overt infiltrates no large effusions. Patient is treated in the emergency department with 125 mg of Solu- Medrol as well as a DuoNeb breathing treatment. He continues to feel improved. Will be sent home with prednisone 50 mg x 5 days. He is advised to call his primary care physician for refill of his Advair today. Patient verbalizes understanding. All questions are sought and answered. Patient is stable for discharge. ECG Initial ECG Impression Date: Nov 06, 2020 Initial ECG Impression Time: 09:35 Initial ECG Rate: 78 Initial ECG Rhythm: Normal Sinus Initial ECG Intervals: Normal Initial ECG Impression: Normal Diagnostic Imaging Diagonstic Imaging: Xray Plain Films/CT/US/NM/MRI: chest Comments [facility]. [place], [place] NAME: URMILA GORDON V [facility] REC#: [id number] PT STATUS: REG ER : 1960 PHYSICIAN: SUREKHA MARSHALL MD ADMIT DATE: 11/06/20/ER Draft Date of Exam:11/06/20 CHEST 1 VIEW, AP/PA ONLY INDICATION: Shortness of breath, increased over the past two days. TECHNIQUE: Single-view chest 10:17 a.m. CORRELATION STUDY: 04/16/2019. FINDINGS: Lung rayo are hyperinflated with emphysematous changes. There has been improvement in aeration to the lung rayo. However, there are slight increased interstitial markings at the left lung base; likely reflective of component of underlying edema. Trace effusions not excluded. There is asymmetric pleural parenchymal density with nodular appearance about the right lung apex, relatively stable and favors scarring. Heart size is stable. Mild vascular congestion. IMPRESSION: 1. Rather advanced bullous emphysematous changes about the lung parenchyma. Biapical pleural parenchymal scarring, right greater than left. 2. No consolidating infiltrate. Interstitial prominence at the left lung base may be attributed to component of mild edema. Dictated on workstation # [id number] Dict: 11/06/20 1026 Trans: 11/06/20 1037 [id number] Interpreted by: GATO BURRIS DO Electronically signed by: Departure Impression Primary Impression: COPD (chronic obstructive pulmonary disease) Qualified Codes: J44.9 - Chronic obstructive pulmonary disease, unspecified Disposition: 01 HOME, SELF-CARE Condition: Stable Departure-Patient Inst. Decision time for Depature: 11:27 Referrals: KULDIP DUONG MD (PCP/Family) Primary Care Physician Patient Instructions: Chronic Obstructive Pulmonary Disease (COPD), Including Emphysema Add. Discharge Instructions: Use your ProAir inhaler, 2 puffs every 4-6 hours as needed for shortness of breath. Please call [facility] to have them send a refill of your Advair inhaler to the pharmacy. Take the prednisone 1 tablet once a day for the next 5 days. I have sent this to the [facility] pharmacy. Come back to the emergency room for any increased shortness of breath, weakness dizziness or new, emergent concerning symptoms. Scripts Prednisone (Prednisone) 50 Mg Tab 50 MG PO DAILY, #5 TAB Prov: SUREKHA MARSHALL MD 11/06/20 SUREKHA MARSHALL MD Nov 06, 2020 09:49
[2020-11-06 10:01] LABS: BASOPHILS # (AUTO) 0.1 10^3/uL (0.0-0.1); BASOPHILS % (AUTO) 1 % (0-10); EOSINOPHILS # (AUTO) 0.3 10^3/uL (0.0-0.3); EOSINOPHILS % (AUTO) 4 % (0-10); HEMATOCRIT 45 % (40-54); HEMOGLOBIN 15.6 g/dL (13.3-17.7); LYMPHOCYTES # (AUTO) 1.2 10^3/uL (1.0-4.0); LYMPHOCYTES % (AUTO) 17 % (12-44); MEAN CORPUSCULAR HEMOGLOBIN 31 pg (25-34); MEAN CORPUSCULAR HGB CONC 35 g/dL (32-36); MEAN CORPUSCULAR VOLUME 89 fL (80-99); MEAN PLATELET VOLUME 9.3 fL (9.0-12.2); MONOCYTES # (AUTO) 0.7 10^3/uL (0.0-1.0); MONOCYTES % (AUTO) 10 % (0-12); NEUTROPHILS # (AUTO) 4.7 10^3/uL (1.8-7.8); NEUTROPHILS % (AUTO) 68 % (42-75); PLATELET COUNT 186 10^3/uL (130-400); WHITE BLOOD COUNT 6.9 10^3/uL (4.3-11.0)
[2020-11-06 10:14] LABS: BUN/CREATININE RATIO 15; CALCIUM 9.4 MG/DL (8.5-10.1); CARBON DIOXIDE 27 MMOL/L (21-32); CHLORIDE 103 MMOL/L (98-107); CREATININE SERUM 0.79 MG/DL (0.60-1.30); GFR ESTIMATED > 60; GLUCOSE 92 MG/DL (70-105); POTASSIUM 4.6 MMOL/L (3.6-5.0); SODIUM 137 MMOL/L (135-145)
--- NOTE | 2020-11-06 10:38 | Diagnostic Imaging Report ---
INDICATION: Shortness of breath, increased over the past two days. TECHNIQUE: Single-view chest 10:17 a.m. CORRELATION STUDY: 04/16/2019. FINDINGS: Lung rayo are hyperinflated with emphysematous changes. There has been improvement in aeration to the lung rayo. However, there are slight increased interstitial markings at the left lung base; likely reflective of component of underlying edema. Trace effusions not excluded. There is asymmetric pleural parenchymal density with nodular appearance about the right lung apex, relatively stable and favors scarring. Heart size is stable. Mild vascular congestion. IMPRESSION: 1. Rather advanced bullous emphysematous changes about the lung parenchyma. Biapical pleural parenchymal scarring, right greater than left. 2. No consolidating infiltrate. Interstitial prominence at the left lung base may be attributed to component of mild edema. Dictated by: Dictated on workstation # [id number]
[2020-11-06] MEDS ORDERED: methylPREDNISolone 125 MG (Solu-MEDROL) VIAL IM ONE (11:00)
[2020-11-06] MEDS ORDERED: RT-ALBUTEROL/IPRATROPIUM 3 ML (DUONEB) VIAL INH ONE (11:00)
[2020-11-06] MEDS ORDERED: PRD50T PO (11:29)
[2020-11-06 11:35] VITALS: BP 141/80
== END 2020-11-06 11:35 | disposition home or self-care (01) ==
LOC: EDUNIT# 09:29 → ER 09:30
DX: J44.9 Chronic obstructive pulmonary disease, unspecified (principal); I10 Essential (primary) hypertension; E78.00 Pure hypercholesterolemia, unspecified; Z87.891 Personal history of nicotine dependence; Z79.82 Long term (current) use of aspirin; Z79.52 Long term (current) use of systemic steroids; Z79.899 Other long term (current) drug therapy
CPT/HCPCS: 36415; 71045; 80048; 85025; 93005; 94640

== ENCOUNTER → 2021-01-19 | Outpatient (CLI) | payer MEDICAID ==
[~2021-01-19] MED LIST changes: +PRD50T PO; +RT-ALBUTEROL SULF 2.5 MG/3 ML PRE-MIX VIAL INH ONE
== END ==
LOC: RT 12:00
PROVIDERS: ATTEND Internal Medicine Critical Care Medicine
DX: J44.9 Chronic obstructive pulmonary disease, unspecified (principal); J96.11 Chronic respiratory failure with hypoxia; G47.33 Obstructive sleep apnea (adult) (pediatric); I51.7 Cardiomegaly; Z87.891 Personal history of nicotine dependence
CPT/HCPCS: 93306; 94060; 94729

== ENCOUNTER 2021-11-12 12:50 | Emergency (ER) | payer MEDICARE, MEDICAID ==
[~2021-11-12] VITALS: Ht 170.1 cm; Wt 72.9 kg
[~2021-11-12 12:50] MED LIST changes: -RT-ALBUTEROL SULF 2.5 MG/3 ML PRE-MIX VIAL INH ONE
[2021-11-12] MEDS ORDERED: RT-ALBUTEROL/IPRATROPIUM 3 ML (DUONEB) VIAL INH ONE (13:30)
--- NOTE | 2021-11-12 13:59 | ED Respiratory ---
General Chief Complaint: Dizziness/Syncope Stated Complaint: DIZZY Nursing Triage Note: PT ARRIVAL TO ER WITH COMPLAINT OF DIZZINESS X3-4 DAYS. PT STATES THAT HE WAS SEEN BY PCP TODAY FOR ROUTINE APPOINTMENT AND HIS PROVIDER TOLD HIM THAT HE DIDN'T LOOK GOOD. HE STATES THAT THEY DID A CHEST XRAY AND TOLD HIM SHE DIDN'T LIKE WHAT SHE SEEN AND WAS TOLD TO GO TO THE ER. Source: patient Exam Limitations: no limitations History of Present Illness Date Seen by Provider: Nov 12, 2021 Time Seen by Provider: 13:12 Initial Comments Patient here with report of not feeling well for the past few days but feeling a little better today. He was at his primary care doctor's office and was noted to have increased work of breathing. Patient does have history of COPD. He did quit smoking about a month ago. Denies any recent illness. He is vaccinated for COVID. At his primary care doctor's office, he was requiring 4 L of oxygen instead of his typical 3 L of oxygen via nasal cannula. She did chest x-ray and thought there might be increased density in the middle lobe on the right. Symptom here for further evaluation. He arrives actually feeling a little better and only on 3 L of oxygen. He has had COPD exacerbations in the past but none recently and states its been quite a while since he has been on steroids. Denies infective symptoms. Timing/Duration: other (3-4 days) Severity: moderate Prior Episodes/Possible Cause: occasional episodes Modifying Factors: Worse With Activity; Improves With Oxygen, Improves With Rest Associated Symptoms: No chest pain/soreness; cough; No fever/chills, No headac he, No nasal congestion; shortness of breath; No sore throat; wheezing Allergies and Home Medications Allergies Coded Allergies: No Allergy Information Available (Unverified , 02/14/18) Patient Home Medication List Home Medication List Reviewed: Yes Albuterol Sulfate (Proair Hfa) 1 Puff Puff, 2 PUFF IH Q4H PRN for SHORTNESS OF BREATH, (Reported) Entered as Reported by: CHERYL FARIA on 04/14/18 1515 Aspirin (Aspirin) 81 Mg Tab.chew, 81 MG PO DAILY@0900 Prescribed by: ROMMEL WEBER on 04/17/19 0855 Atorvastatin Calcium (Atorvastatin Calcium) 20 Mg Tablet, 20 MG PO HS, (Repor sunitha) Entered as Reported by: CHERYL FARIA on 04/14/18 1515 Buprenorphine HCl/Naloxone HCl (Buprenorphin-Naloxon 8-2 mg Sl) 1 Each Tab.subl, 2.5 TAB SL DAILY, (Reported) Entered as Reported by: TRISTEN DONALDSON on 04/12/19 0841 Cefdinir (Cefdinir) 300 Mg Capsule, 300 MG PO BID Prescribed by: ANNITA ALBERT on 04/17/19 1322 Fluticasone/Salmeterol (Advair Hfa 115-21 Mcg Inhaler) 12 Gm Hfa.aer.ad, 2 PUFF IH BID@ Prescribed by: ANNITA ALBERT on 04/17/19 1322 Metoprolol Succinate (Toprol Xl) 25 Mg Tab.er.24h, 12.5 MG PO DAILY Prescribed by: ROMMEL WEBER on 04/17/19 0855 Prednisone (Prednisone) 10 Mg Tab, 60 MG PO DAILY Prescribed by: ANNITA ALBERT on 04/17/19 1322 Prednisone (Prednisone) 50 Mg Tab, 50 MG PO DAILY Prescribed by: SUREKHA MARSHALL on 11/06/20 1129 Review of Systems Review of Systems Constitutional: see HPI; No chills, No fever EENTM: No nose congestion, No throat pain Respiratory: cough, short of breath, wheezing Cardiovascular: No chest pain, No edema Gastrointestinal: No nausea, No vomiting Genitourinary: no symptoms reported Musculoskeletal: No muscle pain, No neck pain Skin: no symptoms reported Psychiatric/Neurological: No Symptoms Reported All Other Systems Reviewed Negative Unless Noted: Yes Past Xmpfaqv-Irtlkf-Tuiaaf Hx Patient Social History Tobacco Use?: No Tobacco type used: Cigarettes Smoking Status: Former Smoker Use of E-Cig and/or Vaping dev: No Substance use?: No Alcohol Use?: No Pt feels they are or have been: No Immunizations Up To Date Influenza Vaccine Up-to-Date: No; Not Current Second COVID19 Vaccination Travis: 12/24 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: Moris Seasonal Allergies Seasonal Allergies: No Past Medical History Surgeries: Yes (RT HAND FINGERS) Orthopedic Respiratory: Yes COPD Currently Using CPAP: No Currently Using BIPAP: No Cardiac: Yes High Cholesterol, Hypertension Neurological: No Genitourinary: No Gastrointestinal: No Endocrine: No Cancer: No Psychosocial: No Integumentary: No Family Medical History Reviewed Nursing Family Hx No Pertinent Family Hx Physical Exam Vital Signs - First Documented 11/12/21 11/12/21 13:11 13:47 Temp 36.4 Pulse 89 Resp 24 B/P (MAP) 167/98 (121) Pulse Ox 94 O2 Delivery Room Air O2 Flow Rate 3.00 Capillary Refill : Less Than 3 Seconds Height: 5'8.00" Weight: 135lbs. 0.0oz. 61.127819px; 25.00 BMI Method: General Appearance: WD/WN, no apparent distress HEENT: PERRL/EOMI, pharynx normal Neck: full range of motion, supple Respiratory: no respiratory distress, no accessory muscle use, wheezing (You scattered wheezes noted) Cardiovascular: regular rate, rhythm, no murmur Gastrointestinal: non tender, soft Extremities: non-tender, normal inspection, no pedal edema, no calf tenderness Neurologic/Psychiatric: alert, oriented x 3 Skin: normal color, warm/dry Progress/Results/Core Measures Suspected Sepsis SIRS Temperature: Pulse: 89 Respiratory Rate: 24 Blood Pressure 167 /98 Mean: 121 Results/Orders My Orders Orders - ABDIAS NICHOLS MD Chest 1 View, Ap/Pa Only (11/12/21 13:25) Albuterol/Ipra Inhalation Soln (Duoneb I (11/12/21 13:30) Svn Small Volume Nebulizer (11/12/21 13:25) Albuterol Pre-Mix Nebs (Rt) (Proventil (11/12/21 14:31) Svn Small Volume Nebulizer (11/12/21 14:31) Prednisone Tablet (Deltasone Tablet) (11/12/21 14:45) Medications Given in ED Current Medications Medications Dose Ordered Sig/Kendrick Route Start Time Stop Time Status Last Admin Dose Admin Albuterol/ Ipratropium 3 ml ONCE ONCE INH 11/12/21 13:30 11/12/21 13:31 DC 11/12/21 13:47 3 ML Prednisone 40 mg ONCE ONCE PO 11/12/21 14:45 11/12/21 14:46 DC 11/12/21 14:40 40 MG Vital Signs/I&O 11/12/21 11/12/21 11/12/21 11/12/21 13:11 13:47 14:43 14:53 Temp 36.4 Pulse 89 Resp 24 B/P (MAP) 167/98 (121) Pulse Ox 94 94 93 93 O2 Delivery Room Air Nasal Cannula Nasal Cannula Nasal Cannula O2 Flow Rate 3.00 2.00 2.00 Capillary Refill : Less Than 3 Seconds Blood Pressure Mean: 121 Progress Note : Progress Note Seen and evaluated. I did make contact with his primary care doctor and discuss case and current presentation. We will go ahead and get chest x-ray and do a DuoNeb now and may repeat as needed. We will see how he does over the course of ED evaluation. Patient was in agreement with this plan and so was his primary care provider. Monitor patient. 1432: O2 sat now 95 to 96% on his typical 3 L. States he is breathing better but still having slightly increased work of breathing. Chest x-ray reviewed and results reviewed. Does have a little increased atelectasis at the base with possible infiltrate. This may be more related to atelectasis but we would consider outpatient antibiotics. We will give him 2 more breathing treatments and see how he does and decide if we need to go further or if we can continue this outpatient. Patient was in agreement with that plan. Monitor patient. 1506: Overall doing better after the treatments. He feels more closer to normal. We will send him home with nebulizer and I will order nebulizer solution. We will also initiate outpatient antibiotics with doxycycline. I discussed all of this with his primary care provider who agrees and she will establish close follow-up. Discharged home with return precautions. Patient verbalized understanding instructions and agreement with plan. Diagnostic Imaging Diagonstic Imaging: Xray Plain Films/CT/US/NM/MRI: chest Comments [facility] [place] [place] NAME: URMILA GORDON V [facility] REC#: [id number] PT STATUS: REG ER : 1960 PHYSICIAN: ABDIAS NICHOLS MD ADMIT DATE: 11/12/21/ER Draft Date of Exam:11/12/21 CHEST 1 VIEW, AP/PA ONLY INDICATION: Dizziness COMPARISON: 11/06/2020 FINDINGS: Single view the chest demonstrates increasing atelectasis and/or infiltrate in the bases. Heart is normal. There is no pneumothorax or large effusion. Focal area nodularity in the right upper chest is stable. IMPRESSION: Slightly increased atelectasis and infiltrate in the bases. Dictated on workstation # [id number] Dict: 11/12/21 1400 Trans: 11/12/21 1401 [facility] [id number] Interpreted by: LOLY CAMERON Electronically signed by: Departure Impression Primary Impression: COPD (chronic obstructive pulmonary disease) Qualified Codes: J44.1 - Chronic obstructive pulmonary disease with (acute) exacerbation Disposition: HOME, SELF-CARE Condition: Stable Departure-Patient Inst. Decision time for Depature: 15:07 Referrals: CONOR GO MD (PCP/Family) Primary Care Physician Patient Instructions: Chronic Obstructive Pulmonary Disease (COPD) (DC) Add. Discharge Instructions: All discharge instructions reviewed with patient and/or family. Voiced understanding. Take medications as directed. Follow-up with Dr. Go later this week or early next week for recheck and further evaluation. Use nebulizer treatment 1 ampoule every 6 hours for wheezing and shortness of breath. Return for fever, vomiting, weakness, breathing problems, increasing shortness of air, chest pain or other concerns as needed. Scripts Prednisone (Prednisone) 20 Mg Tab 40 MG PO DAILY, #10 TAB 0 Refills Prov: ABDIAS NICHOLS MD 11/12/21 Doxycycline Hyclate (Doxycycline Hyclate) 100 Mg Tablet 100 MG PO BID, #20 TAB 0 Refills Prov: ABDIAS NICHOLS MD 11/12/21 Albuterol Sulfate (Albuterol Sulfate) 2.5 Mg/3 Ml (0.083 %) Vial.neb 2.5 MG INH Q4H PRN for WHEEZING, #30 EA 1 Refill Prov: ABDIAS NICHOLS MD 11/12/21 Copy Copies To 1: CONOR GO MD, TIMOTHY D MD Nov 12, 2021 13:59
--- NOTE | 2021-11-12 14:02 | Diagnostic Imaging Report ---
INDICATION: Dizziness COMPARISON: 11/06/2020 FINDINGS: Single view the chest demonstrates increasing atelectasis and/or infiltrate in the bases. Heart is normal. There is no pneumothorax or large effusion. Focal area nodularity in the right upper chest is stable. IMPRESSION: Slightly increased atelectasis and infiltrate in the bases. Dictated by: Dictated on workstation # [id number]
[2021-11-12] MEDS ORDERED: RT-ALBUTEROL SULF 2.5 MG/3 ML PRE-MIX VIAL INH STA (14:31)
[2021-11-12] MEDS ORDERED: predniSONE 20 MG TAB PO ONE (14:45)
[2021-11-12] MEDS ORDERED: DOXY100T2 PO (15:11)
[2021-11-12] MEDS ORDERED: ALBU2.5V4 INH (15:11)
[2021-11-12] MEDS ORDERED: PRD20T PO (15:11)
[2021-11-12 15:21] VITALS: BP 167/98
== END 2021-11-12 15:35 | disposition home or self-care (01) ==
LOC: EDUNIT# 12:50 → ER 12:51
DX: J44.1 Chronic obstructive pulmonary disease with (acute) exacerbation (principal); Z99.81 Dependence on supplemental oxygen; Z87.891 Personal history of nicotine dependence
CPT/HCPCS: 71045; 94640

== ENCOUNTER 2021-12-09 08:43 | Emergency (ER) | payer MEDICARE, MEDICAID ==
[~2021-12-09] VITALS: Ht 167 cm; Wt 72.0 kg
[~2021-12-09 08:43] MED LIST changes: +ALBU2.5V4 INH; +DOXY100T2 PO; +PRD20T PO
--- NOTE | 2021-12-09 08:55 | ED Upper Extremity ---
General Chief Complaint: Upper Extremity Stated Complaint: DISLOCATED SHOULDER Nursing Triage Note: PT ARRIVED PER EMS, PT HAS POSSIBLE DISLOCATED L SHOULDER. PT TRIED TO CATCH SELF AND WHEN FELL OFF STOOL. PT HAS PAIN 10\\10. PT HAS COPD AND WEAR O2@ 3-4L PER N/C. PT WAS GIVEN 100MCG FENTLY BY EMS FOR PAIN. PULSES PRESENT. Source: patient Exam Limitations: no limitations History of Present Illness Date Seen by Provider: Dec 09, 2021 Time Seen by Provider: 08:43 Initial Comments Patient to the ER by EMS with chief complaint of left shoulder dislocation. He has had a dislocated in the past many years ago. He was on the toilet and said he started to fall asleep and fall off the toilet and caught himself with his left arm and dislocated it. It is obviously deformed and splinted and placed by EMS. They gave 100 mcg of fentanyl. He uses Suboxone. He has an appointment today at 3:00 in the afternoon with Dr. Go in [place]. Allergies and Home Medications Allergies Coded Allergies: No Known Drug Allergies (Unverified , 12/09/21) Patient Home Medication List Home Medication List Reviewed: Yes Albuterol Sulfate (Proair Hfa) 1 Puff Puff, 2 PUFF IH Q4H PRN for SHORTNESS OF BREATH, (Reported) Entered as Reported by: CHERYL FARIA on 04/14/18 1515 Albuterol Sulfate (Albuterol Sulfate) 2.5 Mg/3 Ml (0.083 %) Vial.neb, 2.5 MG INH Q4H PRN for WHEEZING Prescribed by: ABDIAS NICHOLS on 11/12/21 1511 Aspirin (Aspirin) 81 Mg Tab.chew, 81 MG PO DAILY@0900 Prescribed by: ROMMEL WEBER on 04/17/19 0855 Atorvastatin Calcium (Atorvastatin Calcium) 20 Mg Tablet, 20 MG PO HS, (Reported) Entered as Reported by: CHERYL FARIA on 04/14/18 1515 Buprenorphine HCl/Naloxone HCl (Buprenorphin-Naloxon 8-2 mg Sl) 1 Each Tab.subl, 2.5 TAB SL DAILY, (Reported) Entered as Reported by: TRISTEN DONALDSON on 04/12/19 0841 Cefdinir (Cefdinir) 300 Mg Capsule, 300 MG PO BID Prescribed by: ANNITA ALBERT on 04/17/19 1322 Doxycycline Hyclate (Doxycycline Hyclate) 100 Mg Tablet, 100 MG PO BID Prescribed by: ABDIAS NICHOLS on 11/12/21 1511 Fluticasone/Salmeterol (Advair Hfa 115-21 Mcg Inhaler) 12 Gm Hfa.aer.ad, 2 PUFF IH BID@08,20 Prescribed by: ANNITA ALBERT on 04/17/19 1322 Metoprolol Succinate (Toprol Xl) 25 Mg Tab.er.24h, 12.5 MG PO DAILY Prescribed by: ROMMEL WEBER on 04/17/19 0855 Prednisone (Prednisone) 10 Mg Tab, 60 MG PO DAILY Prescribed by: ANNITA ALBERT on 04/17/19 1322 Prednisone (Prednisone) 50 Mg Tab, 50 MG PO DAILY Prescribed by: SUREKHA MARSHALL on 11/06/20 1129 Prednisone (Prednisone) 20 Mg Tab, 40 MG PO DAILY Prescribed by: ABDIAS NICHOLS on 11/12/21 151 Review of Systems Constitutional: No chills, No diaphoresis EENTM: No ear discharge, No ear pain Respiratory: No cough, No short of breath Cardiovascular: No chest pain, No edema All Other Systems Reviewed Negative Unless Noted: Yes Past Tjiofse-Qaeenl-Fxzhuv Hx Patient Social History Tobacco Use?: Yes Smoking Status: Current Someday Smoker Substance use?: No Alcohol Use?: No Pt feels they are or have been: No Immunizations Up To Date First/Initial COVID19 Vaccinat: 12/24 Second COVID19 Vaccination Travis: 12/24 Third COVID19 Vaccination Date: 12/24 Seasonal Allergies Seasonal Allergies: No Past Medical History Surgery/Hospitalization HX: COPD, TAKES CIBOXONE. HEART PROBLEMS Surgeries: Yes (RT HAND FINGERS) Orthopedic Respiratory: Yes COPD Currently Using CPAP: No Currently Using BIPAP: No Cardiac: Yes High Cholesterol, Hypertension Neurological: No Genitourinary: No Gastrointestinal: No Endocrine: No Cancer: No Psychosocial: No Integumentary: No Family Medical History No Pertinent Family Hx Physical Exam Vital Signs Vital Signs - First Documented 12/09/21 08:46 Temp 35.7 Pulse 86 Resp 18 B/P (MAP) 171/123 (139) Pulse Ox 93 O2 Delivery Nasal Cannula O2 Flow Rate 3.00 Capillary Refill : Less Than 3 Seconds Height, Weight, BMI Height: 5'8.00" Weight: 135lbs. 0.0oz. 61.068994yl; 25.00 BMI Method: General Appearance: WD/WN, moderate distress HEENT: normal ENT inspection, pharynx normal Neck: full range of motion, supple, normal inspection Cardiovascular: normal peripheral pulses, regular rate, rhythm, no edema, other (Bilateral radial pulses 3+ out of 4.) Respiratory: chest non-tender, lungs clear, normal breath sounds, no respiratory distress, no accessory muscle use Gastrointestinal: normal bowel sounds, non tender, soft Shoulder: asymmetry, deformity (Anterior and inferior dislocation of the left shoulder evident on exam), limited ROM (Left shoulder), pain (Left shoulder) Elbow/Forearm: normal inspection, non-tender, no evidence of injury, normal ROM, Right, Left, Bilateral Neurologic/Psychiatric: alert, normal mood/affect, oriented x 3 Skin: normal color, warm/dry Procedures/Interventions Procedure: Closed reduction left shoulder Patient Education: Explained Benefits, Explained Risks, Pt. Ack. Understanding Agreement on procedure with pt: Yes Patient History: Problem w/Aneshesia (COPD) Breath Sounds per Auscultation: Clear (Diminished) Heart Sounds per Auscultation: Regular Airway Exam: Mouth opens >2 fingers, Neck Full Range of Motion, Visulation of Uvula Sedation Adminstration Time: 12:17 Total Time spent in CS 15 mins 145 mg of ketamine administered slow IV push gave excellent sedation, amnesia and analgesia. Were able to easily reduce his shoulder by abducting his left elbow and externally rotating his forearm. Arm was placed in a sling and patient had RT, nursing at bedside. End-tidal CO2 stayed between 30 and 40. SPO2 stayed in the upper 90s on 2 L by nasal cannula. We had cardiac monitoring and good blood pressure that jumped up with the ketamine but started going down immediately. Progress/Results/Core Measures Results/Orders Lab Results Laboratory Tests Test 12/09/21 08:55 Range/Units White Blood Count 8.7 4.3-11.0 10^3/uL Red Blood Count 4.83 4.30-5.52 10^6/uL Hemoglobin 15.5 13.3-17.7 g/dL Hematocrit 45 40-54 % Mean Corpuscular Volume 92 80-99 fL Mean Corpuscular Hemoglobin 32 25-34 pg Mean Corpuscular Hemoglobin Concent 35 32-36 g/dL Red Cell Distribution Width 12.0 10.0-14.5 % Platelet Count 246 130-400 10^3/uL Mean Platelet Volume 9.2 9.0-12.2 fL Immature Granulocyte % (Auto) 2 % Neutrophils (%) (Auto) 55 42-75 % Lymphocytes (%) (Auto) 26 12-44 % Monocytes (%) (Auto) 10 0-12 % Eosinophils (%) (Auto) 6 0-10 % Basophils (%) (Auto) 1 0-10 % Neutrophils # (Auto) 4.8 1.8-7.8 10^3/uL Lymphocytes # (Auto) 2.3 1.0-4.0 10^3/uL Monocytes # (Auto) 0.9 0.0-1.0 10^3/uL Eosinophils # (Auto) 0.5 H 0.0-0.3 10^3/uL Basophils # (Auto) 0.1 0.0-0.1 10^3/uL Immature Granulocyte # (Auto) 0.2 H 0.0-0.1 10^3/uL Sodium Level 139 135-145 MMOL/L Potassium Level 4.6 3.6-5.0 MMOL/L Chloride Level 104 98-107 MMOL/L Carbon Dioxide Level 26 21-32 MMOL/L Anion Gap 9 5-14 MMOL/L Blood Urea Nitrogen 22 H 7-18 MG/DL Creatinine 1.02 0.60-1.30 MG/DL Estimat Glomerular Filtration Rate 83 BUN/Creatinine Ratio 22 Glucose Level 120 H 70-105 MG/DL Calcium Level 9.9 8.5-10.1 MG/DL Corrected Calcium 9.9 8.5-10.1 MG/DL Total Bilirubin 0.6 0.1-1.0 MG/DL Aspartate Amino Transf (AST/SGOT) 32 5-34 U/L Alanine Aminotransferase (ALT/SGPT) 52 0-55 U/L Alkaline Phosphatase 94 40-136 U/L Total Protein 7.5 6.4-8.2 GM/DL Albumin 4.0 3.2-4.5 GM/DL My Orders Orders - JASON NELSON Hydromorphone Injection (Dilaudid Inject (12/09/21 09:00) Shoulder, Left, 3 Views (12/09/21 08:49) Cbc With Automated Diff (12/09/21 08:49) Comprehensive Metabolic Panel (12/09/21 08:49) Ed Iv/Invasive Line Start (12/09/21 08:49) Ns Iv 1000 Ml (Sodium Chloride 0.9%) (12/09/21 09:00) Fentanyl Inj (Sublimaze Injection) (12/09/21 11:00) Ketamine Syringe (Ketamine Syringe) (12/09/21 12:00) Hydromorphone Injection (Dilaudid Inject (12/09/21 12:00) End Tidal Co2 (12/09/21 11:47) Ketamine Syringe (Ketamine Syringe) (12/09/21 12:00) Shoulder, Left, 3 Views (12/09/21 12:29) Albuterol/Ipra Inhalation Soln (Duoneb I (12/09/21 13:00) Svn Small Volume Nebulizer (12/09/21 12:46) Medications Given in ED Current Medications Medications Dose Ordered Sig/Kendrick Route Start Time Stop Time Status Last Admin Dose Admin Albuterol/ Ipratropium 3 ml ONCE ONCE INH 12/09/21 13:00 12/09/21 13:01 DC 12/09/21 13:03 3 ML Hydromorphone HCl 0.25 mg ONCE ONCE IVP 12/09/21 09:00 12/09/21 09:01 DC 12/09/21 09:02 0.25 MG Ketamine HCl 145 mg ONCE ONCE IV 12/09/21 12:00 12/09/21 12:01 DC 12/09/21 12:25 145 MG Vital Signs/I&O 12/09/21 12/09/21 12/09/21 12/09/21 08:46 12:17 13:03 14:07 Temp 35.7 Pulse 86 87 Resp 18 20 B/P (MAP) 171/123 (139) 135/82 Pulse Ox 93 96 93 O2 Delivery Nasal Cannula Nasal Cannula Nasal Cannula Nasal Cannula O2 Flow Rate 3.00 2.00 3.00 3.00 2.00 3.00 Blood Pressure Mean: 139 Progress Progress Note : Time: 13:19 Progress Note The patient is up walking around, has drank water going to the bathroom. Alert and oriented GCS 15. We will let him follow-up with Dr. Aranda outpatient. Diagnostic Imaging Diagonstic Imaging: Xray Plain Films/CT/US/NM/MRI: other (left shoulder) Comments [facility] [employer] [place], [place] NAME: URMILA GORDON [employer] [facility] REC#: [id number] PT STATUS: REG ER : 1960 PHYSICIAN: JASON NELSON MD ADMIT DATE: 12/09/21/ER Draft Date of Exam:12/09/21 SHOULDER, LEFT, 3 VIEWS EXAMINATION: Left shoulder at 9:16 AM INDICATION: Shoulder pain 3 views were obtained. In the interval since the prior chest exam of 11/12/2021, the patient has suffered an anterior inferior dislocation of the humeral head with respect to the glenoid. There is no acute fracture identified. A follow-up exam after reduction would be recommended. In the interval since the prior exam there has been a slight increase in the atelectasis/infiltrate and fluid in the left lung base. A follow-up exam would be recommended for continued evaluation. IMPRESSION: 1. There is an anterior inferior dislocation of the humeral head without evidence for a fracture. A follow-up exam after reduction would be recommended. 2. There has been a slightly increased atelectasis/infiltrate and fluid in the left lung base since the previous study. Dictated on workstation # [id number] Dict: 12/09/21917 Trans: 12/09/21 0923 STUART [id number] Interpreted by: FLORENCIA BECERRA MD Electronically signed by: Reviewed: Reviewed by Ak Diagonstic Imaging: Xray Plain Films/CT/US/NM/MRI: other (left shoulder) Comments [facility] [place], [place] NAME: URMILA GORDON [employer] [facility] REC#: [id number] PT STATUS: REG ER : 1960 PHYSICIAN: JASON NELSON MD ADMIT DATE: 12/09/21/ER Draft Date of Exam:12/09/21 SHOULDER, LEFT, 3 VIEWS INDICATION: Shoulder pain and shoulder dislocation. TIME OF EXAM: 12:44 p.m. COMPARISON: Correlation is made to shoulder radiograph earlier same day. FINDINGS: There has been interval reduction of the anterior left shoulder dislocation. Glenohumeral alignment is now normal. Acromioclavicular alignment is normal. No fractures are seen. IMPRESSION: Satisfactory reduction of anterior left shoulder dislocation. Dictated on workstation # [id number] Dict: 12/09/21 1302 Trans: 12/09/21 1307 AS6 [id number] Interpreted by: VANITA TAVERAS MD Electronically signed by: Reviewed: Reviewed by Me Departure Impression Primary Impression: Anterior shoulder dislocation Qualified Codes: S43.015A - Anterior dislocation of left humerus, initial encounter Disposition: HOME, SELF-CARE Condition: Stable Departure-Patient Inst. Decision time for Depature: 13:20 Referrals: THERESE ARANDA MD, JULIE A MD (PCP/Family) Primary Care Physician Patient Instructions: Shoulder Instability (DC), Shoulder Dislocation (DC), Moderate Sedation in Adults (DC) Add. Discharge Instructions: Make an appointment to follow-up in [address] Aranda, orthopedic surgery. Tylenol and ibuprofen as necessary for pain. Wear the sling for the next 2 weeks until cleared by orthopedic surgery. Okay to take off to sleep and bathe. All discharge instructions reviewed with patient and/or family. Voiced understanding. Copy Copies To 1: THERESE ARANDA MD; CONOR GO MD, TITUS J Dec 09, 2021 08:55
[2021-12-09] MEDS ORDERED: NS IV 1000 ML 1,000 ML IV SCH (09:00)
[2021-12-09] MEDS ORDERED: HYDROmorphone 2 MG/ML VIAL (DILAUDID) IVP ONE (09:00)
[2021-12-09 09:07] LABS: BASOPHILS # (AUTO) 0.1 10^3/uL (0.0-0.1); BASOPHILS % (AUTO) 1 % (0-10); EOSINOPHILS # (AUTO) 0.5 10^3/uL (0.0-0.3); EOSINOPHILS % (AUTO) 6 % (0-10); HEMATOCRIT 45 % (40-54); HEMOGLOBIN 15.5 g/dL (13.3-17.7); LYMPHOCYTES # (AUTO) 2.3 10^3/uL (1.0-4.0); LYMPHOCYTES % (AUTO) 26 % (12-44); MEAN CORPUSCULAR HEMOGLOBIN 32 pg (25-34); MEAN CORPUSCULAR HGB CONC 35 g/dL (32-36); MEAN CORPUSCULAR VOLUME 92 fL (80-99); MEAN PLATELET VOLUME 9.2 fL (9.0-12.2); MONOCYTES # (AUTO) 0.9 10^3/uL (0.0-1.0); MONOCYTES % (AUTO) 10 % (0-12); NEUTROPHILS # (AUTO) 4.8 10^3/uL (1.8-7.8); NEUTROPHILS % (AUTO) 55 % (42-75); PLATELET COUNT 246 10^3/uL (130-400); WHITE BLOOD COUNT 8.7 10^3/uL (4.3-11.0)
[2021-12-09 09:15] LABS: POTASSIUM 4.6 MMOL/L (3.6-5.0)
[2021-12-09 09:16] LABS: CALCIUM 9.9 MG/DL (8.5-10.1)
[2021-12-09 09:17] LABS: TOTAL PROTEIN 7.5 GM/DL (6.4-8.2)
[2021-12-09 09:19] LABS: BILIRUBIN,TOTAL 0.6 MG/DL (0.1-1.0)
[2021-12-09 09:21] LABS: CREATININE SERUM 1.02 MG/DL (0.60-1.30)
--- NOTE | 2021-12-09 09:23 | Diagnostic Imaging Report ---
EXAMINATION: Left shoulder at 9:16 AM INDICATION: Shoulder pain 3 views were obtained. In the interval since the prior chest exam of 11/12/2021, the patient has suffered an anterior inferior dislocation of the humeral head with respect to the glenoid. There is no acute fracture identified. A follow-up exam after reduction would be recommended. In the interval since the prior exam there has been a slight increase in the atelectasis/infiltrate and fluid in the left lung base. A follow-up exam would be recommended for continued evaluation. IMPRESSION: 1. There is an anterior inferior dislocation of the humeral head without evidence for a fracture. A follow-up exam after reduction would be recommended. 2. There has been a slight increase in the atelectasis/infiltrate and fluid in the left lung base since the previous study. Dictated by: Dictated on workstation # [id number]
[2021-12-09] MEDS ORDERED: fentaNYL INJ 100 MCG/2 ML AMP IVP ONE (11:00)
[2021-12-09] MEDS ORDERED: HYDROmorphone 2 MG/ML VIAL (DILAUDID) IV ONE (12:00)
[2021-12-09] MEDS ORDERED: KETAMINE 50 MG/5 ML SYRINGE IV ONE ×2 (12:00)
[2021-12-09] MEDS ORDERED: RT-ALBUTEROL/IPRATROPIUM 3 ML (DUONEB) VIAL INH ONE (13:00)
--- NOTE | 2021-12-09 13:07 | Diagnostic Imaging Report ---
INDICATION: Shoulder pain and shoulder dislocation. TIME OF EXAM: 12:44 p.m. COMPARISON: Correlation is made to shoulder radiograph earlier same day. FINDINGS: There has been interval reduction of the anterior left shoulder dislocation. Glenohumeral alignment is now normal. Acromioclavicular alignment is normal. No fractures are seen. IMPRESSION: Satisfactory reduction of anterior left shoulder dislocation. Dictated by: Dictated on workstation # [id number]
[2021-12-09 14:07] VITALS: BP 135/82
== END 2021-12-09 14:07 | disposition home or self-care (01) ==
LOC: ER 08:43
DX: S43.015A Anterior dislocation of left humerus, initial encounter (principal); J44.9 Chronic obstructive pulmonary disease, unspecified; F17.200 Nicotine dependence, unspecified, uncomplicated; Z99.81 Dependence on supplemental oxygen; Z79.891 Long term (current) use of opiate analgesic; W18.11XA Fall from or off toilet without subsequent striking against object, initial encounter; X50.1XXA Overexertion from prolonged static or awkward postures, initial encounter; Y92.002 Bathroom of unspecified non-institutional (private) residence as the place of occurrence of the external cause
CPT/HCPCS: 73030; 80053; 85025; 93041; 94640; 94762; 99285; A4565; 36415

== ENCOUNTER 2022-03-30 15:10 | Emergency (ER) | payer MEDICARE, MEDICAID ==
[~2022-03-30] VITALS: Ht 165.1 cm; Wt 72.5 kg
[2022-03-30 15:42] LABS: BASOPHILS # (AUTO) 0.1 10^3/uL (0.0-0.1); BASOPHILS % (AUTO) 1 % (0-10); EOSINOPHILS # (AUTO) 0.1 10^3/uL (0.0-0.3); EOSINOPHILS % (AUTO) 2 % (0-10); HEMATOCRIT 45 % (40-54); HEMOGLOBIN 15.3 g/dL (13.3-17.7); LYMPHOCYTES # (AUTO) 1.3 10^3/uL (1.0-4.0); LYMPHOCYTES % (AUTO) 15 % (12-44); MEAN CORPUSCULAR HEMOGLOBIN 32 pg (25-34); MEAN CORPUSCULAR HGB CONC 34 g/dL (32-36); MEAN CORPUSCULAR VOLUME 93 fL (80-99); MONOCYTES # (AUTO) 0.8 10^3/uL (0.0-1.0); MONOCYTES % (AUTO) 9 % (0-12); NEUTROPHILS # (AUTO) 6.2 10^3/uL (1.8-7.8); NEUTROPHILS % (AUTO) 72 % (42-75); PLATELET COUNT 201 10^3/uL (130-400); WHITE BLOOD COUNT 8.6 10^3/uL (4.3-11.0)
--- NOTE | 2022-03-30 15:50 | ED Respiratory ---
General Chief Complaint: Respiratory Problems Stated Complaint: TROUBLE BREATHING,SOA,COPD Nursing Triage Note: PT TO RM 3 BY WC WITH COMPLAINT OF SOA. STATES HAS BEEN WORSENING OVER THE LAST THREE DAYS. WEARS 3LNC AT HOME AND HAS HAD TO INCREASE TO 4L. History of Present Illness Date Seen by Provider: Mar 30, 2022 Time Seen by Provider: 15:15 Initial Comments 61-year-old male presents for shortness of air. He has a longstanding history of COPD. He has been needing to increase his oxygen per nasal cannula with activity to 4 L. He has used his albuterol inhaler approximately every other day (last used yesterday), symptoms began on 03/25/2022. He has not contacted his primary care provider. He has home health care and his nurse was concerned about his lung sounds. Timing/Duration: intermittent Severity: mild Prior Episodes/Possible Cause: occasional episodes Associated Symptoms: No chest pain/soreness; cough (non productive); No fever/chills, No headache, No lightheadedness, No muscle aches, No nasal congest ion, No nasal drainage; shortness of breath (Chronic); No sinus infection, No sore throat, No wheezing Allergies and Home Medications Allergies Coded Allergies: No Known Drug Allergies (Unverified , 03/30/22) Patient Home Medication List Home Medication List Reviewed: Yes Albuterol Sulfate (Proair Hfa) 1 Puff Puff, 2 PUFF IH Q4H PRN for SHORTNESS OF BREATH, (Reported) Entered as Reported by: CHERYL FARIA on 04/14/18 1515 Albuterol Sulfate (Albuterol Sulfate) 2.5 Mg/3 Ml (0.083 %) Vial.neb, 2.5 MG INH Q4H PRN for WHEEZING Prescribed by: ABDIAS NICHOLS on 11/12/21 1511 Albuterol Sulfate (Ventolin Hfa) 1 Puff Puff, 2 PUFF INH Q4H PRN for SHORTNESS OF BREATH Prescribed by: KOTA SUMMERS on 03/30/22 1559 Aspirin (Aspirin) 81 Mg Tab.chew, 81 MG PO DAILY@0900 Prescribed by: ROMMEL WEBER on 04/17/19 0855 Atorvastatin Calcium (Atorvastatin Calcium) 20 Mg Tablet, 20 MG PO HS, (Reported) Entered as Reported by: CHERYL FARIA on 04/14/18 1515 Buprenorphine HCl/Naloxone HCl (Buprenorphin-Naloxon 8-2 mg Sl) 1 Each Tab.subl, 2.5 TAB SL DAILY, (Reported) Entered as Reported by: TRISTEN DONALDSON on 04/12/19 0841 Cefdinir (Cefdinir) 300 Mg Capsule, 300 MG PO BID Prescribed by: ANNITA ALBERT on 04/17/19 1322 Doxycycline Hyclate (Doxycycline Hyclate) 100 Mg Tablet, 100 MG PO BID Prescribed by: ABDIAS NICHOLS on 11/12/21 1511 Doxycycline Hyclate (Doxycycline Hyclate) 100 Mg Tablet, 100 MG PO BID Prescribed by: KOTA SUMMERS on 03/30/22 1621 Fluticasone/Salmeterol (Advair Hfa 115-21 Mcg Inhaler) 12 Gm Hfa.aer.ad, 2 PUFF IH BID@08,20 Prescribed by: ANNITA ALBERT on 04/17/19 1322 Metoprolol Succinate (Toprol Xl) 25 Mg Tab.er.24h, 12.5 MG PO DAILY Prescribed by: ROMMEL WEBER on 04/17/19 0855 Prednisone (Prednisone) 10 Mg Tab, 60 MG PO DAILY Prescribed by: ANNITA ALBERT on 04/17/19 1322 Prednisone (Prednisone) 50 Mg Tab, 50 MG PO DAILY Prescribed by: SUREKHA MARSHALL on 11/06/20 1129 Prednisone (Prednisone) 20 Mg Tab, 40 MG PO DAILY Prescribed by: ABDIAS NICHOLS on 11/12/21 1511 Prednisone (Prednisone) 20 Mg Tab, 40 MG PO DAILY Prescribed by: KOTA SUMMERS on 03/30/22 1621 Review of Systems Review of Systems Constitutional: no symptoms reported Respiratory: see HPI, cough, dyspnea on exertion; No orthopnea Gastrointestinal: no symptoms reported, see HPI Genitourinary: no symptoms reported, see HPI All Other Systems Reviewed Negative Unless Noted: Yes Past Vkcspdt-Sazvha-Fahxru Hx Patient Social History Tobacco Use?: No Smoking Status: Former Smoker Use of E-Cig and/or Vaping dev: No Substance use?: No Alcohol Use?: No Pt feels they are or have been: No Immunizations Up To Date First/Initial COVID19 Vaccinat: 12/24 Second COVID19 Vaccination Travis: 12/24 Third COVID19 Vaccination Date: 12/24 Seasonal Allergies Seasonal Allergies: No Past Medical History Surgery/Hospitalization HX: COPD, TAKES CIBOXONE. HEART PROBLEMS Surgeries: Yes (RT HAND FINGERS) Orthopedic Respiratory: Yes COPD Currently Using CPAP: No Currently Using BIPAP: No Cardiac: Yes High Cholesterol, Hypertension Neurological: No Genitourinary: No Gastrointestinal: No Endocrine: No Cancer: No Psychosocial: No Integumentary: No Family Medical History Reviewed Nursing Family Hx No Pertinent Family Hx Physical Exam Vital Signs - First Documented 03/30/22 03/30/22 15:15 16:35 Temp 36.4 Pulse 111 Resp 18 B/P (MAP) 196/123 (147) Pulse Ox 93 O2 Delivery Nasal Cannula O2 Flow Rate 4.00 Capillary Refill : Less Than 3 Seconds Height: 5'8.00" Weight: 135lbs. 0.0oz. [id number]; 26.00 BMI Method: General Appearance: WD/WN, no apparent distress Neck: non-tender, full range of motion, supple, normal inspection Respiratory: chest non-tender, lungs clear, normal breath sounds, no respiratory distress, no accessory muscle use, decreased breath sounds; No accessory muscle use Cardiovascular: normal peripheral pulses, regular rate, rhythm Gastrointestinal: normal bowel sounds, non tender, soft Neurologic/Psychiatric: no motor/sensory deficits, alert, normal mood/affect, oriented x 3 Skin: normal color, warm/dry Procedures/Interventions Patient Education: Explained Benefits, Explained Risks, Pt. Ack. Understanding Patient History: Problem w/Aneshesia Breath Sounds per Auscultation: Clear Heart Sounds per Auscultation: Regular Airway Exam: Mouth opens >2 fingers, Neck Full Range of Motion, Visulation of Uvula Sedation Adminstration Time: 1217 Progress/Results/Core Measures Suspected Sepsis SIRS Temperature: Pulse: 111 Respiratory Rate: Laboratory Tests 03/30/22 15:25: White Blood Count 8.6 Blood Pressure 196 /123 Mean: 147 Laboratory Tests 03/30/22 15:25: Creatinine 0.86, INR Comment 1.1, Platelet Count 201, Total Bilirubin 0.7 Results/Orders Lab Results Laboratory Tests Test 03/30/22 15:25 Range/Units White Blood Count 8.6 4.3-11.0 10^3/uL Red Blood Count 4.79 4.30-5.52 10^6/uL Hemoglobin 15.3 13.3-17.7 g/dL Hematocrit 45 40-54 % Mean Corpuscular Volume 93 80-99 fL Mean Corpuscular Hemoglobin 32 25-34 pg Mean Corpuscular Hemoglobin Concent 34 32-36 g/dL Red Cell Distribution Width 12.6 10.0-14.5 % Platelet Count 201 130-400 10^3/uL Mean Platelet Volume 9.0 9.0-12.2 fL Immature Granulocyte % (Auto) 1 % Neutrophils (%) (Auto) 72 42-75 % Lymphocytes (%) (Auto) 15 12-44 % Monocytes (%) (Auto) 9 0-12 % Eosinophils (%) (Auto) 2 0-10 % Basophils (%) (Auto) 1 0-10 % Neutrophils # (Auto) 6.2 1.8-7.8 10^3/uL Lymphocytes # (Auto) 1.3 1.0-4.0 10^3/uL Monocytes # (Auto) 0.8 0.0-1.0 10^3/uL Eosinophils # (Auto) 0.1 0.0-0.3 10^3/uL Basophils # (Auto) 0.1 0.0-0.1 10^3/uL Immature Granulocyte # (Auto) 0.1 0.0-0.1 10^3/uL Prothrombin Time 14.4 12.2-14.7 SEC INR Comment 1.1 0.8-1.4 Activated Partial Thromboplast Time 24 24-35 SEC Sodium Level 139 135-145 MMOL/L Potassium Level 3.9 3.6-5.0 MMOL/L Chloride Level 103 98-107 MMOL/L Carbon Dioxide Level 27 21-32 MMOL/L Anion Gap 9 5-14 MMOL/L Blood Urea Nitrogen 14 7-18 MG/DL Creatinine 0.86 0.60-1.30 MG/DL Estimat Glomerular Filtration Rate 97 BUN/Creatinine Ratio 16 Glucose Level 111 H 70-105 MG/DL Calcium Level 9.8 8.5-10.1 MG/DL Corrected Calcium 9.9 8.5-10.1 MG/DL Total Bilirubin 0.7 0.1-1.0 MG/DL Aspartate Amino Transf (AST/SGOT) 31 5-34 U/L Alanine Aminotransferase (ALT/SGPT) 51 0-55 U/L Alkaline Phosphatase 132 40-136 U/L C-Reactive Protein High Sensitivity 0.55 H 0.00-0.50 MG/DL Total Protein 8.0 6.4-8.2 GM/DL Albumin 3.9 3.2-4.5 GM/DL My Orders Orders - KOTA SUMMERS Cbc With Automated Diff (03/30/22 15:25) Comprehensive Metabolic Panel (03/30/22 15:25) Hs C Reactive Protein (03/30/22 15:25) Protime With Inr (03/30/22 15:25) Partial Thromboplastin Time (03/30/22 15:25) Ua Culture If Indicated (03/30/22 15:25) Chest 1 View, Ap/Pa Only (03/30/22 15:25) Vital Signs/I&O 03/30/22 03/30/22 03/30/22 15:15 15:25 16:35 Temp 36.4 Pulse 111 76 Resp 18 B/P (MAP) 196/123 (147) 142/96 Pulse Ox 93 94 O2 Delivery Nasal Cannula Nasal Cannula Nasal Cannula O2 Flow Rate 4.00 3.00 3.00 Capillary Refill : Less Than 3 Seconds Blood Pressure Mean: 147 Progress Note : Time: 15:15 Progress Note patient seen and evaluated, will obtain labs and CXR. Maintaining SaO2 94-96% on 3L per NC. 1630 patient has remained stable throughout visit reviewed labs and chest x-ray. Discharge instructions and return precautions reviewed with him. All questions answered. Stressed the importance of following up in 2 to 3 weeks for chest x- ray with Dr. Go. Message sent to her. Diagnostic Imaging Diagonstic Imaging: Xray Comments NAME: URMILA GORDON [facility] REC#: [id number] PT STATUS: REG ER : 1960 PHYSICIAN: KOTA SUMMERS ADMIT DATE: 03/30/22/ER Draft Date of Exam:03/30/22 CHEST 1 VIEW, AP/PA ONLY INDICATION: Shortness of air, worsening over the last 3 days.. TECHNIQUE: Single view chest 3:43 PM. CORRELATION STUDY: 11/12/2021 FINDINGS: Emphysematous change about the lung parenchyma. Asymmetric bullous changes in the lung apices. Density of the right upper lung field stable. Question new nodule right mid lung field, approximately 16 mm in size. Bibasilar areas of atelectasis or infiltrate appears slightly more prominent from prior. Mediastinal structures unchanged. IMPRESSION: 1. Increased atelectasis or infiltrate both lung bases superimposed on what appears to be chronic lung disease. 2. Question new and/or developing density of the right midlung. There may be additional area of infiltrate overlapping summation shadows with possibly of pulmonary nodules not excluded. Short-term followup two-view chest imaging recommended for reassessment. Dictated on workstation # [id number] Dict: 03/30/22 1555 Trans: 03/30/22 1602 CV [id number] Interpreted by: GATO BURRIS DO Electronically signed by: Departure Impression Primary Impression: COPD (chronic obstructive pulmonary disease) with acute bronchitis Disposition: HOME, SELF-CARE Condition: Stable Departure-Patient Inst. Decision time for Depature: 16:10 Referrals: CONOR GO MD (PCP/Family) Primary Care Physician Patient Instructions: Chronic Obstructive Pulmonary Disease (COPD) (DC) Add. Discharge Instructions: Continue to use your home oxygen at all times as prescribed. Use your albuterol inhaler 2 puffs every 4-6 hours as needed. Take antibiotics and steroids as prescribed. Keep your scheduled follow-up with Dr. Go for next week. Have a follow-up chest x-ray in 2 weeks. Return to the emergency department for new, urgent healthcare problems. All discharge instructions reviewed with patient and/or family. Voiced understanding. Scripts Doxycycline Hyclate (Doxycycline Hyclate) 100 Mg Tablet 100 MG PO BID, #20 TAB 0 Refills Prov: KOTA SUMMERS 03/30/22 Prednisone (Prednisone) 20 Mg Tab 40 MG PO DAILY, #6 TAB 0 Refills Prov: KOTA SUMMERS 03/30/22 Albuterol Sulfate (VENTOLIN HFA) 1 Puff Puff 2 PUFF INH Q4H PRN for SHORTNESS OF BREATH, #1 EA 0 Refills 1 PUFF = 90 MCG Prov: KOTA SUMMERS 03/30/22 Copy Copies To 1: CONOR GO MD, AMY ARNP Mar 30, 2022 15:50
[2022-03-30 15:53] LABS: ALBUMIN 3.9 GM/DL (3.2-4.5); INR 1.1 (0.8-1.4); POTASSIUM 3.9 MMOL/L (3.6-5.0); PROTHROMBIN TIME PATIENT 14.4 SEC (12.2-14.7)
[2022-03-30 15:54] LABS: CALCIUM 9.8 MG/DL (8.5-10.1)
[2022-03-30 15:57] LABS: BILIRUBIN,TOTAL 0.7 MG/DL (0.1-1.0)
[2022-03-30 15:59] LABS: CREATININE SERUM 0.86 MG/DL (0.60-1.30)
[2022-03-30] MEDS ORDERED: RT-ALBUINH INH (15:59)
--- NOTE | 2022-03-30 16:03 | Diagnostic Imaging Report ---
INDICATION: Shortness of air, worsening over the last 3 days.. TECHNIQUE: Single view chest 3:43 PM. CORRELATION STUDY: 11/12/2021 FINDINGS: Emphysematous change about the lung parenchyma. Asymmetric bullous changes in the lung apices. Density of the right upper lung field stable. Question new nodule right mid lung field, approximately 16 mm in size. Bibasilar areas of atelectasis or infiltrate appears slightly more prominent from prior. Mediastinal structures unchanged. IMPRESSION: 1. Increased atelectasis or infiltrate both lung bases superimposed on what appears to be chronic lung disease. 2. Question new and/or developing density of the right midlung. There may be additional area of infiltrate overlapping summation shadows with possibly of pulmonary nodules not excluded. Short-term followup two-view chest imaging recommended for reassessment. Dictated by: Dictated on workstation # [id number]
[2022-03-30] MEDS ORDERED: PRD20T PO (16:21)
[2022-03-30] MEDS ORDERED: DOXY100T2 PO (16:21)
[2022-03-30 16:35] VITALS: BP 142/96
== END 2022-03-30 16:41 | disposition home or self-care (01) ==
LOC: EDUNIT# 15:10 → ER 15:13
DX: J44.9 Chronic obstructive pulmonary disease, unspecified (principal); Z87.891 Personal history of nicotine dependence
CPT/HCPCS: 36415; 71045; 80053; 85025; 85610; 85730; 86141

== ENCOUNTER 2022-04-30 03:47 | Emergency (ER) | payer MEDICARE, MEDICAID ==
[~2022-04-30] VITALS: Ht 167 cm; Wt 73.0 kg
[~2022-04-30 03:47] MED LIST changes: +ALBU8.5H6 IH; -RT-ALBUINH IH; +RT-ALBUINH INH
--- NOTE | 2022-04-30 04:09 | ED Respiratory ---
General Chief Complaint: Respiratory Problems Stated Complaint: SOA Nursing Triage Note: brought in by [facility] for increased soa with exertion x1 month. productive cough x2 days. ems gave albuterol enroute to hospital. Source: patient Exam Limitations: no limitations History of Present Illness Date Seen by Provider: Apr 30, 2022 Time Seen by Provider: 03:55 Initial Comments Patient is a 62-year-old male history of chronic COPD who presents to the emergency department with worsening shortness of breath over the last several weeks. He states he was getting up to go from his bedroom into the bathroom and felt "warmth" across his chest and was very weak and short of breath. He has had a little bit more productive cough of green sputum over the last couple of days. He does admit to smoking a couple of cigarettes over the last few days. He uses breathing treatments at home. He states over the last month he is increased his home oxygen from 3 to 4 L. He denies fevers or chills. No COVID concerns he is vaccinated. He has not had actual chest pain, abdominal pain, na usea or vomiting. He states he is urinating normally. He does admit to increased swelling in the right lower extremity. One of his providers gave him Lasix for 3 days last week and he urinated a lot and felt a little better however when he was finished with the Lasix his symptoms seem to return. No known heart disease history. 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 All other review of systems reviewed and negative except as stated. Timing/Duration: getting worse, other (3weeks) Severity: severe Prior Episodes/Possible Cause: occasional episodes, smoke exposure Modifying Factors: Improves With Albuterol Inhaler Associated Symptoms: cough, nasal congestion, shortness of breath Allergies and Home Medications Allergies Coded Allergies: No Known Drug Allergies (Unverified , 03/30/22) Patient Home Medication List Home Medication List Reviewed: Yes Albuterol Sulfate (Ventolin Hfa) 1 Puff Puff, 2 PUFF IH Q4H PRN for SHORTNESS OF BREATH, (Reported) Entered as Reported by: CHERYL FARIA on 04/14/18 3158 Albuterol Sulfate (Albuterol Sulfate) 2.5 Mg/3 Ml (0.083 %) Vial.neb, 2.5 MG INH Q4H PRN for WHEEZING Prescribed by: ABDIAS NICHOLS on 11/12/21 1511 Albuterol Sulfate (Ventolin Hfa) 1 Puff Puff, 2 PUFF INH Q4H PRN for SHORTNESS OF BREATH Prescribed by: KOTA SUMMERS on 03/30/22 1559 Aspirin (Aspirin) 81 Mg Tab.chew, 81 MG PO DAILY@0900 Prescribed by: ROMMEL WEBER on 04/17/19 0855 Atorvastatin Calcium (Atorvastatin Calcium) 20 Mg Tablet, 20 MG PO HS, (Reported) Entered as Reported by: CHERYL FARIA on 04/14/18 1515 Buprenorphine HCl/Naloxone HCl (Buprenorphin-Naloxon 8-2 mg Sl) 1 Each Tab.subl, 2.5 TAB SL DAILY, (Reported) Entered as Reported by: TRISTEN DONALDSON on 04/12/19 0841 Fluticasone/Salmeterol (Advair Hfa 115-21 Mcg Inhaler) 12 Gm Hfa.aer.ad, 2 PUFF IH BID@08,20 Prescribed by: ANNITA ALBERT on 04/17/19 1322 Metoprolol Succinate (Toprol Xl) 25 Mg Tab.er.24h, 12.5 MG PO DAILY Prescribed by: ROMMEL WEBER on 04/17/19 0855 Discontinued Medications Cefdinir (Cefdinir) 300 Mg Capsule, 300 MG PO BID Discontinued Reason: No Longer Taking Prescribed by: ANNITA ALBERT on 04/17/19 1322 Last Action: Discontinued Doxycycline Hyclate (Doxycycline Hyclate) 100 Mg Tablet, 100 MG PO BID Discontinued Reason: No Longer Taking Prescribed by: ABDIAS NICHOLS on 11/12/21 1511 Last Action: Discontinued Doxycycline Hyclate (Doxycycline Hyclate) 100 Mg Tablet, 100 MG PO BID Discontinued Reason: No Longer Taking Prescribed by: KOTA SUMMERS on 03/30/22 1621 Last Action: Discontinued Prednisone (Prednisone) 10 Mg Tab, 60 MG PO DAILY Discontinued Reason: No Longer Taking Prescribed by: ANNITA ALBERT on 04/17/19 1322 Last Action: Discontinued Prednisone (Prednisone) 50 Mg Tab, 50 MG PO DAILY Discontinued Reason: No Longer Taking Prescribed by: SUREKHA MARSHALL on 11/06/20 1129 Last Action: Discontinued Prednisone (Prednisone) 20 Mg Tab, 40 MG PO DAILY Discontinued Reason: No Longer Taking Prescribed by: ABDIAS NICHOLS on 11/12/21 1511 Last Action: Discontinued Prednisone (Prednisone) 20 Mg Tab, 40 MG PO DAILY Discontinued Reason: No Longer Taking Prescribed by: KOTA SUMMERS on 03/30/22 1621 Last Action: Discontinued Review of Systems Review of Systems Constitutional: see HPI EENTM: other (nasal congestion) Respiratory: cough, phlegm, short of breath Cardiovascular: edema (right leg) Gastrointestinal: no symptoms reported Genitourinary: no symptoms reported Musculoskeletal: no symptoms reported Psychiatric/Neurological: Anxiety All Other Systems Reviewed Negative Unless Noted: Yes Past [place]-Yhhvcr-Htsubx Hx Patient Social History Tobacco Use?: Yes Substance use?: No Alcohol Use?: No Pt feels they are or have been: No Immunizations Up To Date First/Initial COVID19 Vaccinat: 12/24 Second COVID19 Vaccination Travis: 01/24 Third COVID19 Vaccination Date: 12/24 Seasonal Allergies Seasonal Allergies: No Past Medical History Surgery/Hospitalization HX: COPD, TAKES CIBOXONE. HEART PROBLEMS, orhto right hand, multiple shoulder dislocations, htn, high cholesterol Surgeries: Yes (RT HAND FINGERS) Orthopedic Respiratory: Yes COPD Currently Using CPAP: No Currently Using BIPAP: No Cardiac: Yes High Cholesterol, Hypertension Neurological: No Genitourinary: No Gastrointestinal: No Endocrine: No Cancer: No Psychosocial: No Integumentary: No Family Medical History No Pertinent Family Hx Physical Exam Vital Signs - First Documented Capillary Refill : Less Than 3 Seconds Height: 5'8.00" Weight: 135lbs. 0.0oz. 61.731616iz; 26.00 BMI Method: General Appearance: WD/WN, other (appears chronically ill) Eyes: Bilateral Eye Normal Inspection, Bilateral Eye PERRL, Bilateral Eye EOMI HEENT: other (dry mucous membranes) Neck: normal inspection Respiratory: no respiratory distress, no accessory muscle use, wheezing (diffuse exp wheezes and crackles in all lung rayo), other (able to speak in complete sentences) Cardiovascular: regular rate, rhythm (90's) Extremities: normal range of motion, no calf tenderness, other (2+ pitting edema RLE; no calf tenderness; neg Hima's sign) Neurologic/Psychiatric: alert, normal mood/affect, oriented x 3 Skin: normal color, warm/dry Procedures/Interventions Patient Education: Explained Benefits, Explained Risks, Pt. Ack. Understanding Patient History: Problem w/Aneshesia Breath Sounds per Auscultation: Clear Heart Sounds per Auscultation: Regular Airway Exam: Mouth opens >2 fingers, Neck Full Range of Motion, Visulation of Uvula Sedation Adminstration Time: 1217 Progress/Results/Core Measures Suspected Sepsis SIRS Temperature: Pulse: 101 Respiratory Rate: 22 Laboratory Tests 04/30/22 04:36: White Blood Count 9.9 Blood Pressure 172 /104 Mean: 126 Laboratory Tests 04/30/22 04:36: Creatinine 0.78, Platelet Count 203 Results/Orders Lab Results Laboratory Tests Test 04/30/22 04:36 Range/Units White Blood Count 9.9 4.3-11.0 10^3/uL Red Blood Count 4.54 4.30-5.52 10^6/uL Hemoglobin 14.2 13.3-17.7 g/dL Hematocrit 41 40-54 % Mean Corpuscular Volume 90 80-99 fL Mean Corpuscular Hemoglobin 31 25-34 pg Mean Corpuscular Hemoglobin Concent 35 32-36 g/dL Red Cell Distribution Width 12.3 10.0-14.5 % Platelet Count 203 130-400 10^3/uL Mean Platelet Volume 9.2 9.0-12.2 fL Immature Granulocyte % (Auto) 1 % Neutrophils (%) (Auto) 77 H 42-75 % Lymphocytes (%) (Auto) 10 L 12-44 % Monocytes (%) (Auto) 10 0-12 % Eosinophils (%) (Auto) 2 0-10 % Basophils (%) (Auto) 1 0-10 % Neutrophils # (Auto) 7.6 1.8-7.8 10^3/uL Lymphocytes # (Auto) 1.0 1.0-4.0 10^3/uL Monocytes # (Auto) 1.0 0.0-1.0 10^3/uL Eosinophils # (Auto) 0.2 0.0-0.3 10^3/uL Basophils # (Auto) 0.1 0.0-0.1 10^3/uL Immature Granulocyte # (Auto) 0.1 0.0-0.1 10^3/uL Sodium Level 137 135-145 MMOL/L Potassium Level 3.7 3.6-5.0 MMOL/L Chloride Level 100 98-107 MMOL/L Carbon Dioxide Level 26 21-32 MMOL/L Anion Gap 11 5-14 MMOL/L Blood Urea Nitrogen 13 7-18 MG/DL Creatinine 0.78 0.60-1.30 MG/DL Estimat Glomerular Filtration Rate 100 BUN/Creatinine Ratio 17 Glucose Level 103 70-105 MG/DL Calcium Level 9.9 8.5-10.1 MG/DL B-Type Natriuretic Peptide 25.3 <100.0 PG/ML My Orders Orders - SUREKHA MARSHALL MD Ed Iv/Invasive Line Start (04/30/22 04:09) Cbc With Automated Diff (04/30/22 04:09) Basic Metabolic Panel (04/30/22 04:09) Bnp Anil (04/30/22 04:09) Chest 1 View, Ap/Pa Only (04/30/22 04:09) Vital Signs/I&O 04/30/22 04/30/22 03:49 03:49 Temp 35.8 Pulse 101 Resp 22 B/P (MAP) 172/104 (126) Pulse Ox 95 O2 Delivery Nasal Cannula Nasal Cannula O2 Flow Rate 4.00 4.00 Capillary Refill : Less Than 3 Seconds Blood Pressure Mean: 126 Progress Note : Time: 05:25 Progress Note Patient seen and evaluated, 62-year-old male with a history of severe COPD on chronic home oxygen therapy at 3 L. Evaluation today includes physical exam, basic laboratory studies. He does have crackles in the posterior lung rayo bilaterally. No reported fever. Increased sputum production over the last 2 to 3 days. He states he is using his inhalers as normal. Had increased shortness of breath today with warmth across the chest. He does not have an elevated white blood cell count. Chemistry is normal, BNP is negative. He has asymmetric swelling in his legs but he states that he is normally sitting in his bed with his right leg hanging down off the side. No calf pain, negative Homans' sign, not tachycardic. No history of blood clot. Low clinical suspicion for pulmonary embolism. Maintaining saturations on 3 L at 95%. Chest x-ray reviewed by me, no obvious infiltrate. No effusion. Changes consi stent with severe COPD. We will send him home with recommendations for Mucinex. Close follow-up with his primary care physician. Patient verbalized understanding. All questions are sought and answered. Diagnostic Imaging Diagonstic Imaging: Xray Plain Films/CT/US/NM/MRI: chest Comments Chest x-ray, interpreted by me6 changes consistent with severe COPD, no increased pulmonary vascular congestion or consolidative infiltrate or effusion Departure Impression Primary Impression: COPD (chronic obstructive pulmonary disease) Qualified Codes: J44.9 - Chronic obstructive pulmonary disease, unspecified Disposition: 01 HOME, SELF-CARE Condition: Stable Departure-Patient Inst. Decision time for Depature: 05:27 Referrals: UNKNOWN (PCP/Family) Primary Care Physician Patient Instructions: Chronic Obstructive Pulmonary Disease (COPD) (DC) Add. Discharge Instructions: Drink plenty of fluids to stay well hydrated. You should be taking mucinex daily to help thin your secretions. Take your home medications as prescribed. If you have any worsening symptoms such as increased shortness of breath, chest pain or any other emergent, concerning symptoms, please come back to the Emergency Department for re-evaluation. Follow up with your primary care physician. SUREKHA MARSHALL MD Apr 30, 2022 04:09
[2022-04-30 04:50] LABS: BASOPHILS # (AUTO) 0.1 10^3/uL (0.0-0.1); BASOPHILS % (AUTO) 1 % (0-10); EOSINOPHILS # (AUTO) 0.2 10^3/uL (0.0-0.3); EOSINOPHILS % (AUTO) 2 % (0-10); HEMATOCRIT 41 % (40-54); HEMOGLOBIN 14.2 g/dL (13.3-17.7); LYMPHOCYTES % (AUTO) 10 % (12-44); MEAN CORPUSCULAR HEMOGLOBIN 31 pg (25-34); MEAN CORPUSCULAR HGB CONC 35 g/dL (32-36); MEAN CORPUSCULAR VOLUME 90 fL (80-99); MEAN PLATELET VOLUME 9.2 fL (9.0-12.2); MONOCYTES % (AUTO) 10 % (0-12); NEUTROPHILS # (AUTO) 7.6 10^3/uL (1.8-7.8); NEUTROPHILS % (AUTO) 77 % (42-75); PLATELET COUNT 203 10^3/uL (130-400); WHITE BLOOD COUNT 9.9 10^3/uL (4.3-11.0)
[2022-04-30 05:04] LABS: POTASSIUM 3.7 MMOL/L (3.6-5.0)
[2022-04-30 05:05] LABS: CALCIUM 9.9 MG/DL (8.5-10.1)
[2022-04-30 05:09] LABS: CREATININE SERUM 0.78 MG/DL (0.60-1.30)
[2022-04-30 05:35] VITALS: BP 149/102
--- NOTE | 2022-04-30 08:40 | Diagnostic Imaging Report ---
Indication: Shortness of air. Time of Exam: 4:22 AM Correlation is made with prior chest 03/30/2022. Heart size stable. There is generalized interstitial changes which may be chronic. The density noted in the midlung on the right on prior study appears to have resolved. There is some atelectasis in the left base. No effusion is seen. No pneumothorax. Impression: Chronic interstitial changes. There has been improved aeration on the right with resolution of the right midlung density since exam from 03/30/2022. Dictated by: Dictated on workstation # [id number]
== END 2022-04-30 06:09 | disposition home or self-care (01) ==
LOC: EDUNIT# 03:47 → ER 03:49
DX: J44.9 Chronic obstructive pulmonary disease, unspecified (principal); Z99.81 Dependence on supplemental oxygen; Z79.51 Long term (current) use of inhaled steroids; Z72.0 Tobacco use
CPT/HCPCS: 36415; 71045; 80048; 83880; 85025

== ENCOUNTER 2022-06-09 17:15 | Emergency (ER) | payer MEDICARE, MEDICAID ==
[~2022-06-09] VITALS: Ht 167.7 cm; Wt 80.0 kg
--- NOTE | 2022-06-09 17:41 | ED Cough/URI ---
General Chief Complaint: Respiratory Problems Stated Complaint: SOA,COUGH Nursing Triage Note: PT TO ED IN WITH C/O SOB X 1 MONTH. PT REPORTS HE SAW PCP Pablo GO TODAY AND SHE RECOMMENDED HE COME TO ED AFTER SEEING HIS CXR. PT NORMALLY WEARS 4 L NC AT ALL TIMES. DENIES CP, N/V/D. Source: patient Exam Limitations: no limitations History of Present Illness Date Seen by Provider: Jun 09, 2022 Time Seen by Provider: 17:41 Allergies and Home Medications Allergies Coded Allergies: No Known Drug Allergies (Unverified , 03/30/22) Patient Home Medication List Home Medication List Reviewed: Yes Albuterol Sulfate (Ventolin Hfa) 1 Puff Puff, 2 PUFF IH Q4H PRN for SHORTNESS OF BREATH, (Reported) Entered as Reported by: CHERYL FARIA on 04/14/18 1515 Albuterol Sulfate (Albuterol Sulfate) 2.5 Mg/3 Ml (0.083 %) Vial.neb, 2.5 MG INH Q4H PRN for WHEEZING Prescribed by: ABDIAS NICHOLS on 11/12/21 1511 Albuterol Sulfate (Ventolin Hfa) 1 Puff Puff, 2 PUFF INH Q4H PRN for SHORTNESS OF BREATH Prescribed by: KOTA SUMMERS on 03/30/22 1559 Aspirin (Aspirin) 81 Mg Tab.chew, 81 MG PO DAILY@0900 Prescribed by: ROMMEL WEBER on 04/17/19 0855 Atorvastatin Calcium (Atorvastatin Calcium) 20 Mg Tablet, 20 MG PO HS, (Reported) Entered as Reported by: CHERYL FARIA on 04/14/18 1515 Azithromycin (Azithromycin) 250 Mg Tablet, 250 MG PO DAILY Prescribed by: LINDA KIRK on 06/09/22 1950 Buprenorphine HCl/Naloxone HCl (Buprenorphin-Naloxon 8-2 mg Sl) 1 Each Tab.subl, 2.5 TAB SL DAILY, (Reported) Entered as Reported by: TRISTEN DONALDSON on 04/12/19 0841 Fluticasone/Salmeterol (Advair Hfa 115-21 Mcg Inhaler) 12 Gm Hfa.aer.ad, 2 PUFF IH BID@08,20 Prescribed by: ANNITA ALBERT on 04/17/19 1322 Metoprolol Succinate (Toprol Xl) 25 Mg Tab.er.24h, 12.5 MG PO DAILY Prescribed by: ROMMEL WEBER on 04/17/19 0855 Prednisone (Prednisone) 50 Mg Tab, 50 MG PO DAILY Prescribed by: LINDA KIRK on 06/09/22 1950 Past Umkfuhj-Qrsyxf-Lbhwun Hx Immunizations Up To Date First/Initial COVID19 Vaccinat: 12/24 Second COVID19 Vaccination Travis: 01/24 Third COVID19 Vaccination Date: 12/24 Seasonal Allergies Seasonal Allergies: No Past Medical History Surgery/Hospitalization HX: COPD, TAKES CIBOXONE. HEART PROBLEMS, orhto right hand, multiple shoulder dislocations, htn, high cholesterol Surgeries: Yes (RT HAND FINGERS) Orthopedic Respiratory: Yes COPD Currently Using CPAP: No Currently Using BIPAP: No Cardiac: Yes High Cholesterol, Hypertension Neurological: No Genitourinary: No Gastrointestinal: No Endocrine: No Cancer: No Psychosocial: No Integumentary: No Family Medical History No Pertinent Family Hx Physical Exam Vital Signs - First Documented Capillary Refill : Height: 5'8.00" Weight: 135lbs. 0.0oz. [id number]; 28.00 BMI Method: Procedures/Interventions Patient Education: Explained Benefits, Explained Risks, Pt. Ack. Understanding Patient History: Problem w/Aneshesia Breath Sounds per Auscultation: Clear Heart Sounds per Auscultation: Regular Airway Exam: Mouth opens >2 fingers, Neck Full Range of Motion, Visulation of Uvula Sedation Adminstration Time: 1217 Progress/Results/Core Measures Suspected Sepsis SIRS Temperature: Pulse: 84 Respiratory Rate: 21 Laboratory Tests 06/09/22 18:47: White Blood Count 8.3 Blood Pressure 124 /96 Mean: 105 Laboratory Tests 06/09/22 18:47: Creatinine 0.76, Platelet Count 200, Total Bilirubin 0.7 Results/Orders Lab Results Laboratory Tests Test 06/09/22 17:34 06/09/22 18:47 Range/Units Influenza Type A (RT-PCR) Not Detected Not Detecte Influenza Type B (RT-PCR) Not Detected Not Detecte SARS-CoV-2 RNA (RT-PCR) Not Detected Not Detecte White Blood Count 8.3 4.3-11.0 10^3/uL Red Blood Count 4.07 L 4.30-5.52 10^6/uL Hemoglobin 13.1 L 13.3-17.7 g/dL Hematocrit 38 L 40-54 % Mean Corpuscular Volume 93 80-99 fL Mean Corpuscular Hemoglobin 32 25-34 pg Mean Corpuscular Hemoglobin Concent 35 32-36 g/dL Red Cell Distribution Width 13.1 10.0-14.5 % Platelet Count 200 130-400 10^3/uL Mean Platelet Volume 9.2 9.0-12.2 fL Immature Granulocyte % (Auto) 1 % Neutrophils (%) (Auto) 74 42-75 % Lymphocytes (%) (Auto) 12 12-44 % Monocytes (%) (Auto) 11 0-12 % Eosinophils (%) (Auto) 2 0-10 % Basophils (%) (Auto) 1 0-10 % Neutrophils # (Auto) 6.2 1.8-7.8 10^3/uL Lymphocytes # (Auto) 1.0 1.0-4.0 10^3/uL Monocytes # (Auto) 0.9 0.0-1.0 10^3/uL Eosinophils # (Auto) 0.2 0.0-0.3 10^3/uL Basophils # (Auto) 0.0 0.0-0.1 10^3/uL Immature Granulocyte # (Auto) 0.1 0.0-0.1 10^3/uL Sodium Level 137 135-145 MMOL/L Potassium Level 3.6 3.6-5.0 MMOL/L Chloride Level 101 98-107 MMOL/L Carbon Dioxide Level 26 21-32 MMOL/L Anion Gap 10 5-14 MMOL/L Blood Urea Nitrogen 12 7-18 MG/DL Creatinine 0.76 0.60-1.30 MG/DL Estimat Glomerular Filtration Rate 100 BUN/Creatinine Ratio 16 Glucose Level 139 H 70-105 MG/DL Calcium Level 9.4 8.5-10.1 MG/DL Corrected Calcium 9.8 8.5-10.1 MG/DL Total Bilirubin 0.7 0.1-1.0 MG/DL Aspartate Amino Transf (AST/SGOT) 16 5-34 U/L Alanine Aminotransferase (ALT/SGPT) 21 0-55 U/L Alkaline Phosphatase 97 40-136 U/L B-Type Natriuretic Peptide 91.8 <100.0 PG/ML Total Protein 7.1 6.4-8.2 GM/DL Albumin 3.5 3.2-4.5 GM/DL My Orders Orders - LINDA KIRK CHARRER Covid 19 Inhouse Test (06/09/22 17:37) Influenza A And B By Pcr (06/09/22 17:37) Cbc With Automated Diff (06/09/22 18:33) Comprehensive Metabolic Panel (06/09/22 18:33) Chest 1 View, Ap/Pa Only (06/09/22 18:33) Bnp [place] (06/09/22 18:33) Azithromycin Tablet (Zithromax Tablet) (06/09/22 20:00) Prednisone Tablet (Deltasone Tablet) (06/09/22 20:00) Medications Given in ED Current Medications Medications Dose Ordered Sig/Kendrick Route Start Time Stop Time Status Last Admin Dose Admin Azithromycin 500 mg ONCE ONCE PO 06/09/22 20:00 06/09/22 20:01 DC 06/09/22 20:07 500 MG Prednisone 50 mg ONCE ONCE PO 06/09/22 20:00 06/09/22 20:01 DC 06/09/22 20:07 50 MG Vital Signs/I&O 06/09/22 06/09/22 06/09/22 17:28 17:28 20:15 Temp 36.7 Pulse 84 88 Resp 21 22 B/P (MAP) 124/96 (105) 136/85 Pulse Ox 96 94 O2 Delivery Nasal Cannula Nasal Cannula Nasal Cannula O2 Flow Rate 4.00 4.00 4.00 Capillary Refill : Blood Pressure Mean: 105 Departure Impression Primary Impression: COPD exacerbation Disposition: 01 HOME, SELF-CARE Condition: Stable Departure-Patient Inst. Decision time for Depature: 19:48 Referrals: CONOR GO MD (PCP/Family) Primary Care Physician Patient Instructions: COPD Exacerbation, Adult ED Add. Discharge Instructions: Plan: 1. Use nebulizers as previously directed. 2. To follow-up with your primary care provider for persistent symptoms, could be indicative of your progressive COPD. 3. If he have not had a recent echo would be beneficial. 4. Take prednisone daily with food to prevent GI upset. 5. Go ahead and take antibiotics daily as directed and complete full course. 6. Return to the ER for any new, concerning, worsening symptoms. All discharge instructions reviewed with patient and/or family. Voiced understanding. Scripts Azithromycin (Azithromycin) 250 Mg Tablet 250 MG PO DAILY, #4 TAB 0 Refills Prov: LINDA KIRK CHARRER 06/09/22 Prednisone (Prednisone) 50 Mg Tab 50 MG PO DAILY for 5 Days, #5 TAB 0 Refills Prov: LINDA KIRK CHARRER 06/09/22 LINDA KIRK CHARRER Jun 09, 2022 17:41
[2022-06-09 18:53] LABS: BASOPHILS % (AUTO) 1 % (0-10); EOSINOPHILS # (AUTO) 0.2 10^3/uL (0.0-0.3); EOSINOPHILS % (AUTO) 2 % (0-10); HEMATOCRIT 38 % (40-54); HEMOGLOBIN 13.1 g/dL (13.3-17.7); LYMPHOCYTES % (AUTO) 12 % (12-44); MEAN CORPUSCULAR HEMOGLOBIN 32 pg (25-34); MEAN CORPUSCULAR HGB CONC 35 g/dL (32-36); MEAN CORPUSCULAR VOLUME 93 fL (80-99); MEAN PLATELET VOLUME 9.2 fL (9.0-12.2); MONOCYTES # (AUTO) 0.9 10^3/uL (0.0-1.0); MONOCYTES % (AUTO) 11 % (0-12); NEUTROPHILS # (AUTO) 6.2 10^3/uL (1.8-7.8); NEUTROPHILS % (AUTO) 74 % (42-75); PLATELET COUNT 200 10^3/uL (130-400); WHITE BLOOD COUNT 8.3 10^3/uL (4.3-11.0)
--- NOTE | 2022-06-09 19:14 | Diagnostic Imaging Report ---
INDICATION: Cough. COMPARISON: 04/30/2022. TECHNIQUE: Single radiograph of the chest dated June 09, 2022. FINDINGS: The cardiac silhouette is within normal limits in size. No significant pulmonary vascular congestion. Background chronic obstructive pulmonary disease is again identified with emphysematous changes within the upper lungs. Bibasilar interstitial opacities are also identified, appearing similar to the prior examinations. Biapical pleural parenchymal scarring is also present. No new focal pulmonary opacity. No significant pleural effusion. No pneumothorax. No acute osseous abnormality. IMPRESSION: Significant background emphysematous changes with associated significant bibasilar chronic interstitial lung disease without superimposed acute cardiopulmonary abnormality. Dictated by: Dictated on workstation # [id number]
[2022-06-09 19:26] LABS: ALBUMIN 3.5 GM/DL (3.2-4.5); BILIRUBIN,TOTAL 0.7 MG/DL (0.1-1.0); CALCIUM 9.4 MG/DL (8.5-10.1); CREATININE SERUM 0.76 MG/DL (0.60-1.30); POTASSIUM 3.6 MMOL/L (3.6-5.0); TOTAL PROTEIN 7.1 GM/DL (6.4-8.2)
[2022-06-09] MEDS ORDERED: AZIT250T12 PO (19:50)
[2022-06-09] MEDS ORDERED: PRD50T PO (19:50)
[2022-06-09] MEDS ORDERED: AZITHROMYCIN 250 MG TAB (ZITHROMAX) PO ONE (20:00)
[2022-06-09] MEDS ORDERED: predniSONE 20 MG TAB PO ONE (20:00)
[2022-06-09 20:15] VITALS: BP 136/85
== END 2022-06-09 20:15 | disposition home or self-care (01) ==
LOC: EDUNIT# 17:15 → ER 17:18
DX: J44.1 Chronic obstructive pulmonary disease with (acute) exacerbation (principal); Z20.822 Contact with and (suspected) exposure to COVID-19
CPT/HCPCS: 36415; 71045; 80053; 83880; 85025; 87636

== ENCOUNTER 2022-08-09 06:30 | Inpatient (IN) | payer MEDICARE, MEDICAID ==
[~2022-08-09] VITALS: Ht 167.7 cm; Wt 83.4 kg
[~2022-08-09 06:30] MED LIST changes: +AZIT250T12 PO
[2022-08-09] MEDS ORDERED: morphine INJ 10 MG/ML 1ML (SYR OR VIAL) IVP STA ×2 (06:36→07:23)
--- NOTE | 2022-08-09 06:38 | ED Respiratory ---
General Chief Complaint: Respiratory Problems Stated Complaint: RESP DISTRESS Source: patient Exam Limitations: clinical condition History of Present Illness Date Seen by Provider: Aug 09, 2022 Time Seen by Provider: 06:35 Initial Comments Patient is a 62-year-old male who presents to the emergency room with a chief complaint of difficulty breathing. Patient states that he started having issues within the last hour to hour and a half. He complains of mild cough that is nonproductive. He denies fevers or chills. No chest pain. No nausea, vomiting or diarrhea. He has had episodes of shortness of breath in the past but never this bad. He has tried breathing treatments at home without any relief. EMS reports hypoxia on arrival. Patient on nonrebreather at my initial evaluation with cyanosis. Respiratory rate in the 40s, on a nonrebreather he was satting 96%. Conversational dyspnea with 1-2 word sentences. Good blood pressure. Tachycardic in the 140s. No history of coronary artery disease, he does have hypertension. Diabetic. States that he does not smoke. Timing/Duration: this morning Severity: severe Prior Episodes/Possible Cause: occasional episodes Modifying Factors: Improves With Albuterol Inhaler Associated Symptoms: cough, lightheadedness, shortness of breath Allergies and Home Medications Allergies Coded Allergies: No Known Drug Allergies (Unverified , 03/30/22) Patient Home Medication List Home Medication List Reviewed: Yes Albuterol Sulfate (Ventolin Hfa) 1 Puff Puff, 2 PUFF IH Q4H PRN for SHORTNESS OF BREATH, (Reported) Entered as Reported by: CHERYL FARIA on 04/14/18 1515 Albuterol Sulfate (Albuterol Sulfate) 2.5 Mg/3 Ml (0.083 %) Vial.neb, 2.5 MG INH Q4H PRN for WHEEZING Prescribed by: ABDIAS NICHOLS on 11/12/21 1511 Albuterol Sulfate (Ventolin Hfa) 1 Puff Puff, 2 PUFF INH Q4H PRN for SHORTNESS OF BREATH Prescribed by: KOTA SUMMERS on 03/30/22 1559 Aspirin (Aspirin) 81 Mg Tab.chew, 81 MG PO DAILY@0900 Prescribed by: ROMMEL WEBER on 04/17/19 0855 Atorvastatin Calcium (Atorvastatin Calcium) 20 Mg Tablet, 20 MG PO HS, (Reported) Entered as Reported by: CHERYL FARIA on 04/14/18 1515 Azithromycin (Azithromycin) 250 Mg Tablet, 250 MG PO DAILY Prescribed by: LINDA KIRK on 06/09/221949 Buprenorphine HCl/Naloxone HCl (Buprenorphin-Naloxon 8-2 mg Sl) 1 Each Tab.subl, 2.5 TAB SL DAILY, (Reported) Entered as Reported by: TRISTEN DONALDSON on 04/12/19 0841 Fluticasone/Salmeterol (Advair Hfa 115-21 Mcg Inhaler) 12 Gm Hfa.aer.ad, 2 PUFF IH BID@ Prescribed by: ANNITA ALBERT on 04/17/19 1322 Metoprolol Succinate (Toprol Xl) 25 Mg Tab.er.24h, 12.5 MG PO DAILY Prescribed by: ROMMEL WEBER on 04/17/19 0855 Prednisone (Prednisone) 50 Mg Tab, 50 MG PO DAILY Prescribed by: LINDA KIRK on 06/09/221949 Review of Systems Review of Systems Constitutional: see HPI Respiratory: cough, dyspnea on exertion, short of breath Cardiovascular: no symptoms reported Gastrointestinal: no symptoms reported Genitourinary: no symptoms reported Musculoskeletal: no symptoms reported, other (Right leg always more swollen than the left) Skin: no symptoms reported Psychiatric/Neurological: Anxiety Past Ngrpeyt-Bkkgvz-Paziik Hx Immunizations Up To Date First/Initial COVID19 Vaccinat: 12/24 Second COVID19 Vaccination Travis: 01/24 Third COVID19 Vaccination Date: Y Seasonal Allergies Seasonal Allergies: No Past Medical History Surgery/Hospitalization HX: COPD, TAKES CIBOXONE. HEART PROBLEMS, orhto right hand, multiple shoulder dislocations, htn, high cholesterol Surgeries: Yes (RT HAND FINGERS) Orthopedic Respiratory: Yes COPD Currently Using CPAP: No Currently Using BIPAP: No Cardiac: Yes High Cholesterol, Hypertension Neurological: No Genitourinary: No Gastrointestinal: No Endocrine: No Cancer: No Psychosocial: No Integumentary: No Family Medical History No Pertinent Family Hx Physical Exam Vital Signs - First Documented 08/09/22 06:30 Temp 36.7 Pulse 142 Resp 30 B/P (MAP) 127/89 (102) Pulse Ox 96 O2 Delivery Nasal Cannula O2 Flow Rate 4.00 FiO2 100 Capillary Refill : Height: 5'8.00" Weight: 135lbs. 0.0oz. 61.828213lo; 28.00 BMI Method: General Appearance: WD/WN, severe distress Eyes: Bilateral Eye Normal Inspection, Bilateral Eye PERRL, Bilateral Eye EOMI HEENT: PERRL/EOMI, other (Dry mucous membranes) Neck: other (JVD) Respiratory: respiratory distress, decreased breath sounds Cardiovascular: regular rate, rhythm, tachycardia (140) Gastrointestinal: soft Extremities: normal range of motion, other (Right leg 2+ pitting edema, left leg no edema. Patient states this is chronic) Neurologic/Psychiatric: alert, other (Anxious) Skin: cyanosis, damp Focused Exam Lactate Level 08/09/22 06:40: Lactic Acid Level 7.64*H 08/09/22 08:35: Lactic Acid Level Laboratory Tests Test 08/09/22 06:40 08/09/22 08:35 Lactic Acid Level 7.64 MMOL/L (0.50-2.00) *H Procedures/Interventions Patient Education: Explained Benefits, Explained Risks, Pt. Ack. Understanding Patient History: Problem w/Aneshesia Breath Sounds per Auscultation: Clear Heart Sounds per Auscultation: Regular Airway Exam: Mouth opens >2 fingers, Neck Full Range of Motion, Visulation of Uvula Sedation Adminstration Time: 1217 Progress/Results/Core Measures Suspected Sepsis SIRS Temperature: Pulse: Respiratory Rate: Laboratory Tests 08/09/22 06:40: White Blood Count 14.9H Blood Pressure / Mean: 08/09/22 06:40: Lactic Acid Level 7.64*H 08/09/22 08:35: Laboratory Tests 08/09/22 06:40: Creatinine 1.03, INR Comment 1.0, Platelet Count 263, Total Bilirubin 0.3 Results/Orders Lab Results Laboratory Tests Test 08/09/22 06:40 08/09/22 06:48 08/09/22 08:00 08/09/22 08:35 Range/Units White Blood Count 14.9 H 4.3-11.0 10^3/uL Red Blood Count 4.63 4.30-5.52 10^6/uL Hemoglobin 14.8 13.3-17.7 g/dL Hematocrit 45 40-54 % Mean Corpuscular Volume 97 80-99 fL Mean Corpuscular Hemoglobin 32 25-34 pg Mean Corpuscular Hemoglobin Concent 33 32-36 g/dL Red Cell Distribution Width 12.7 10.0-14.5 % Platelet Count 263 130-400 10^3/uL Mean Platelet Volume 9.0 9.0-12.2 fL Immature Granulocyte % (Auto) 4 % Neutrophils (%) (Auto) 49 42-75 % Lymphocytes (%) (Auto) 33 12-44 % Monocytes (%) (Auto) 10 0-12 % Eosinophils (%) (Auto) 4 0-10 % Basophils (%) (Auto) 1 0-10 % Neutrophils # (Auto) 7.2 1.8-7.8 10^3/uL Lymphocytes # (Auto) 4.9 H 1.0-4.0 10^3/uL Monocytes # (Auto) 1.4 H 0.0-1.0 10^3/uL Eosinophils # (Auto) 0.6 H 0.0-0.3 10^3/uL Basophils # (Auto) 0.1 0.0-0.1 10^3/uL Immature Granulocyte # (Auto) 0.6 H 0.0-0.1 10^3/uL Neutrophils % (Manual) 49 % Lymphocytes % (Manual) 36 % Monocytes % (Manual) 9 % Eosinophils % (Manual) 4 % Myelocytes % 1 % Reactive Lymphocytes 1 % Blood Morphology Comment NORMAL Prothrombin Time 13.3 12.2-14.7 SEC INR Comment 1.0 0.8-1.4 Activated Partial Thromboplast Time 27 24-35 SEC Sodium Level 143 135-145 MMOL/L Potassium Level 4.3 3.6-5.0 MMOL/L Chloride Level 103 98-107 MMOL/L Carbon Dioxide Level 22 21-32 MMOL/L Anion Gap 18 H 5-14 MMOL/L Blood Urea Nitrogen 15 7-18 MG/DL Creatinine 1.03 0.60-1.30 MG/DL Estimat Glomerular Filtration Rate 81 BUN/Creatinine Ratio 15 Glucose Level 158 H 70-105 MG/DL Lactic Acid Level 7.64 *H 0.50-2.00 MMOL/L Calcium Level 9.6 8.5-10.1 MG/DL Corrected Calcium 9.7 8.5-10.1 MG/DL Total Bilirubin 0.3 0.1-1.0 MG/DL Aspartate Amino Transf (AST/SGOT) 18 5-34 U/L Alanine Aminotransferase (ALT/SGPT) 28 0-55 U/L Alkaline Phosphatase 109 40-136 U/L Troponin I < 0.028 <0.028 NG/ML Total Protein 7.8 6.4-8.2 GM/DL Albumin 3.9 3.2-4.5 GM/DL Influenza Type A (RT-PCR) Not Detected Not Detecte Influenza Type B (RT-PCR) Not Detected Not Detecte SARS-CoV-2 RNA (RT-PCR) Not Detected Not Detecte Blood Gas Puncture Site R RAD Blood Gas Patient Temperature 36.7 Arterial Blood pH 7.28 *L 7.37-7.43 Arterial Blood Partial Pressure CO2 72 *H 35-45 MMHG Arterial Blood Partial Pressure O2 273 H 79-93 MMHG Arterial Blood HCO3 33 H 23-27 MMOL/L Arterial Blood Total CO2 35.2 H 21.0-31.0 MMOL/L Arterial Blood Oxygen Saturation 100 94-100 % Arterial Blood Base Excess 6.4 H -2.5-2.5 MMOL/L Daniel Test P Blood Gas Ventilator Setting NO Blood Gas Inspired Oxygen 100 My Orders Orders - SUREKHA MARSHALL MD Cbc With Automated Diff (08/09/22 06:36) Comprehensive Metabolic Panel (08/09/22 06:36) Blood Culture (08/09/22 06:36) Sputum Culture (08/09/22 06:36) Urinalysis (08/09/22 06:36) Urine Culture (08/09/22 06:36) Protime With Inr (08/09/22 06:36) Partial Thromboplastin Time (08/09/22 06:36) Chest 1 View, Ap/Pa Only (08/09/22 06:36) Ed Iv/Invasive Line Start (08/09/22 06:36) Ed Iv/Invasive Line Start (08/09/22 06:36) Vital Signs Adult Sepsis Patie Q15M (08/09/22 06:36) O2 (08/09/22 06:36) Remove Rings In Anticipation O (08/09/22 06:36) Lactic Acid Analyzer (08/09/22 06:36) Morphine Injection (Morphine Injection (08/09/22 06:36) Ekg Tracing (08/09/22 06:36) Troponin I Anil (08/09/22 06:36) Covid 19 Inhouse Test (08/09/22 06:39) Influenza A And B By Pcr (08/09/22 06:39) Isolation Central Supply Req (08/09/22 06:39) Albuterol/Ipra Inhalation Soln (Duoneb I (08/09/22 06:43) Manual Differential (08/09/22 06:40) Morphine Injection (Morphine Injection (08/09/22 07:23) Ns Iv 1000 Ml (Sodium Chloride 0.9%) (08/09/22 07:40) Cefepime Injection (Maxipime Injection) (08/09/22 07:45) Arterial Blood Gas (08/09/22 07:59) Arterial Blood Draw - Obtain (08/09/22 ) Ed Admission (Communication) (08/09/22 08:41) Medications Given in ED Current Medications Medications Dose Ordered Sig/Kendrick Route Start Time Stop Time Status Last Admin Dose Admin Albuterol/ Ipratropium 3 ml STK-MED ONCE .ROUTE 08/09/22 06:43 08/09/22 06:45 DC 08/09/22 06:55 3 ML Vital Signs/I&O 08/09/22 08/09/22 08/09/22 08/09/22 06:30 06:30 06:30 06:46 Temp 36.7 Pulse 142 120 Resp 30 20 B/P (MAP) 127/89 (102) Pulse Ox 96 96 99 O2 Delivery Nasal Cannula NIV Bilevel NIV Bilevel O2 Flow Rate 4.00 100.00 FiO2 100 Capillary Refill : Progress Note : Time: 08:38 Progress Note Patient seen and evaluated. Evaluation today includes physical exam, "sepsis" protocol to include CBC, coags, chemistry, lactic acid, blood cultures. Additionally ABG, chest x-ray, EKG and troponin. Physical exam pertinent for significant acute respiratory distress with cyanosis. Tachycardia. No audible wheezing the severely diminished breath sounds throughout. Lower extremity edema right greater than left which the patient states is chronic. Dry mucous membranes. Differential diagnosis based on history and physical, pneumonia, severe COPD exacerbation, pulmonary embolism, acute coronary syndrome. Labs reviewed, mild leukocytosis at 14,000. Chemistry is normal, lactic acid is significantly elevated greater than 7. ABG with pH of 7.28 and hypercarbia. Chest x-ray per radiologist shows chronic findings/scarring. EKG sinus tach without evidence of ST segment elevation or depression. Serum troponin is negative. Patient has no history of known coronary artery disease, denied chest pain ACS is low on the differential. He has chronic lower extremity swelling on the right no calf tenderness low concern for acute pulmonary embolism. Former heavy smoker, continual use of breathing medications at home. Suspect possible p neumonia with COPD exacerbation. Patient is treated with cefepime, IV fluids 2 L and BiPAP. He was given 4 of morphine just after arrival and this significantly helped his air hunger. Case was discussed with Dr. Shen , [facility] on for the [facility] service. Patient will be admitted to the ICU. ECG Initial ECG Impression Date: Aug 09, 2022 Initial ECG Impression Time: 07:15 Initial ECG Rate: 111 Initial ECG Rhythm: S.Tach Initial ECG Intervals: Normal Comment PVC noted, no overt ST segment elevation or depression, normal intervals, artifact at the baseline due to respiratory distress Diagnostic Imaging Diagonstic Imaging: Xray Plain Films/CT/US/NM/MRI: chest Comments [facility], [place], [place] NAME: URMILA GORDON V [facility] REC#: [id number] PT STATUS: REG ER : 1960 PHYSICIAN: SUREKHA MARSHALL MD ADMIT DATE: 08/09/22/ER Draft Date of Exam:08/09/22 CHEST 1 VIEW, AP/PA ONLY INDICATION: Shortness of breath Portable chest 6:54 AM There are emphysematous changes in the lungs. There is interstitial thickening at the lung bases. IMPRESSION: Basilar interstitial fibrosis with underlying COPD. There are no acute infiltrates, effusions or pneumothoraces. Dictated on workstation # [id number] Dict: 08/09/22 0703 Trans: 08/09/22 0705 CV [id number] Interpreted by: ABDIAS GONG MD Electronically signed by: Critical Care Note Critical Care Start Time: 06:35 Stop Time: 08:37 Total Time (minutes) 40 minutes critical care time in evaluation of this patient with acute respiratory failure. Time includes initial evaluation, management of hypoxia, placed on BiPAP, review of medical record past medical history, review and i nterpretation of labs/ imaging. medication management. Serial reevaluations of the patient, discussion with admitting provider. Departure Communication (Admissions) Time/Spoke to Admitting Phy: 07:[address] Shen; will do que'd orders; admit to ICU Time/Spoke to Consulting Phy: 08:47 discussed with eICU Impression Primary Impression: Acute respiratory failure Qualified Codes: J96.02 - Acute respiratory failure with hypercapnia Additional Impression: COPD exacerbation Disposition: ADMITTED INPATIENT Condition: Critical Admissions Decision to Admit Reason: Admit from ER (General) Decision to Admit/Date: Aug 09, 2022 Time/Decision to Admit Time: 08:33 Departure-Patient Inst. Referrals: CONOR GO MD (PCP/Family) Primary Care Physician SUREKHA MARSHALL MD Aug 09, 2022 06:38
[2022-08-09] MEDS ORDERED: RT-ALBUTEROL/IPRATROPIUM 3 ML (DUONEB) VIAL ONE (06:43)
[2022-08-09 06:46] VITALS: BP 125/80
[2022-08-09 06:52] LABS: BASOPHILS # (AUTO) 0.1 10^3/uL (0.0-0.1); BASOPHILS % (AUTO) 1 % (0-10); EOSINOPHILS # (AUTO) 0.6 10^3/uL (0.0-0.3); EOSINOPHILS % (AUTO) 4 % (0-10); HEMATOCRIT 45 % (40-54); HEMOGLOBIN 14.8 g/dL (13.3-17.7); LYMPHOCYTES # (AUTO) 4.9 10^3/uL (1.0-4.0); LYMPHOCYTES % (AUTO) 33 % (12-44); MEAN CORPUSCULAR HEMOGLOBIN 32 pg (25-34); MEAN CORPUSCULAR HGB CONC 33 g/dL (32-36); MEAN CORPUSCULAR VOLUME 97 fL (80-99); MONOCYTES # (AUTO) 1.4 10^3/uL (0.0-1.0); MONOCYTES % (AUTO) 10 % (0-12); NEUTROPHILS # (AUTO) 7.2 10^3/uL (1.8-7.8); NEUTROPHILS % (AUTO) 49 % (42-75); PLATELET COUNT 263 10^3/uL (130-400); WHITE BLOOD COUNT 14.9 10^3/uL (4.3-11.0)
[2022-08-09 07:00] LABS: ALBUMIN 3.9 GM/DL (3.2-4.5); CHLORIDE 103 MMOL/L (98-107); POTASSIUM 4.3 MMOL/L (3.6-5.0); SODIUM 143 MMOL/L (135-145)
[2022-08-09 07:02] LABS: CALCIUM 9.6 MG/DL (8.5-10.1); PROTHROMBIN TIME PATIENT 13.3 SEC (12.2-14.7)
[2022-08-09 07:03] LABS: GLUCOSE 158 MG/DL (70-105); TOTAL PROTEIN 7.8 GM/DL (6.4-8.2)
[2022-08-09 07:04] LABS: CARBON DIOXIDE 22 MMOL/L (21-32)
[2022-08-09 07:05] LABS: BILIRUBIN,TOTAL 0.3 MG/DL (0.1-1.0)
[2022-08-09 07:06] LABS: ALKALINE PHOSPHATASE 109 U/L (40-136); CREATININE SERUM 1.03 MG/DL (0.60-1.30); GFR ESTIMATED 81
--- NOTE | 2022-08-09 07:06 | Diagnostic Imaging Report ---
INDICATION: Shortness of breath Portable chest 6:54 AM There are emphysematous changes in the lungs. There is interstitial thickening at the lung bases. IMPRESSION: Basilar interstitial fibrosis with underlying COPD. There are no acute infiltrates, effusions or pneumothoraces. Dictated by: Dictated on workstation # [id number]
[2022-08-09 07:07] LABS: BUN/CREATININE RATIO 15
[2022-08-09 07:09] LABS: ALANINE AMINOTRANSFERASE 28 U/L (0-55)
[2022-08-09 07:13] LABS: EOSINOPHILS % (MANUAL) 4 %; LYMPHOCYTES % (MANUAL) 36 %; MONOCYTES % (MANUAL) 9 %; MYELOCYTES % 1 %; NEUTROPHILS % (MANUAL) 49 %; REACTIVE LYMPHOCYTES 1 %
[2022-08-09 07:14] LABS: RBC MORPH NORMAL
[2022-08-09] MEDS ORDERED: NS IV 1000 ML 1,000 ML IV STA (07:40)
[2022-08-09] MEDS ORDERED: CEFEPIME INJECTION 1,000 MG in NS (IVPB) 50 ML IV ONE (07:45)
[2022-08-09 08:08] LABS: ABG BASE EXCESS 6.4 MMOL/L (-2.5-2.5); ABG OXYGEN SATURATION 100 % (94-100); ABG PO2 273 MMHG (79-93); ABG TCO2 35.2 MMOL/L (21.0-31.0)
[2022-08-09 08:11] LABS: ABG PH 7.28 (7.37-7.43)
[2022-08-09 08:12] LABS: ABG PCO2 72 MMHG (35-45); ALLENS TEST P
[2022-08-09 08:13] LABS: PATIENT TEMP 36.7; VENTILATOR NO
[2022-08-09 08:14] LABS: INSPIRED O2 100
[2022-08-09] MEDS ORDERED: diphenhydrAMINE 25 MG TAB (BENADRYL) PO PRN (09:30)
[2022-08-09] MEDS ORDERED: ANTACID SUSP 30 ML UDC (MYLANTA) PO PRN (09:30)
[2022-08-09] MEDS ORDERED: CALCIUM CARBONATE 500 MG (TUMS) TAB.CHEW PO PRN (09:30)
[2022-08-09] MEDS ORDERED: LORazepam INJ 2 MG/ML (ATIVAN) VIAL IVP PRN (09:30)
[2022-08-09] MEDS ORDERED: ACETAMINOPHEN 325 MG TABLET PO PRN (09:30)
[2022-08-09] MEDS ORDERED: ONDANSETRON 4 MG (ZOFRAN) ORAL DISSOLVE TAB PO PRN (09:30)
[2022-08-09] MEDS ORDERED: NS IV 500 ML 500 ML IV PRN (09:30)
[2022-08-09] MEDS ORDERED: MELATONIN 3 MG TABLET PO PRN (09:30)
[2022-08-09] MEDS ORDERED: BISACODYL 10 MG SUPP (DULCOLAX) PR PRN (09:30)
[2022-08-09] MEDS ORDERED: DexMEDEtomidine 250 ML DRIP 250 ML IV SCH (09:30)
[2022-08-09] MEDS ORDERED: diphenhydrAMINE 50 MG/ML INJ (BENADRYL) IVP PRN (09:30)
[2022-08-09] MEDS ORDERED: MILK OF MAGNESIA 400 MG/5 ML 30 ML UDC PO PRN (09:30)
[2022-08-09] MEDS ORDERED: polyethylene glycoL POWDER 17 GM (MIRALAX) PACK PO PRN (09:30)
[2022-08-09] MEDS ORDERED: LACTULOSE SYRUP 10GM/15ML (ENULOSE) 30ML UDC PO PRN (09:30)
[2022-08-09] MEDS ORDERED: HYDROmorphone 2 MG/ML VIAL (DILAUDID) IV PRN (09:30)
[2022-08-09] MEDS ORDERED: ONDANSETRON 4 MG/2 ML (SDV) Z0FRAN IV PRN (09:30)
[2022-08-09 10:22] VITALS: BP 124/112
[2022-08-09] MEDS ORDERED: RT-ALBUTEROL SULF 2.5 MG/3 ML PRE-MIX VIAL ONE (10:39)
[2022-08-09] MEDS ORDERED: RT-IPRATROPIUM (ATROVENT) 0.5MG/2.5ML AMP IH ONE (10:39)
[2022-08-09 10:47] VITALS: BP 138/105
[2022-08-09 10:49] LABS: ABG BASE EXCESS 7.1 MMOL/L (-2.5-2.5); ABG OXYGEN SATURATION 63 % (94-100); ABG TCO2 35.7 MMOL/L (21.0-31.0)
[2022-08-09 10:53] LABS: ABG PCO2 72 MMHG (35-45); ABG PH 7.29 (7.37-7.43); ABG PO2 34 MMHG (79-93); ALLENS TEST P
[2022-08-09 10:54] LABS: INSPIRED O2 70%; PATIENT TEMP 36.8; VENTILATOR NO
[2022-08-09] MEDS: NS IV 1000 ML 1,000 ML IV SCH ×2 (11:02→17:04)
[2022-08-09] MEDS: methylPREDNISolone 40 MG/ML (Solu-MEDROL) VIAL IV SCH ×3 (11:02→23:55)
[2022-08-09] MEDS: ENOXAPARIN 40 MG/0.4 ML (LOVENOX) SYR SC SCH (11:02)
--- NOTE | 2022-08-09 11:45 | Tele-ICU Consult ---
History of Present Illness History of Present Illness Date Seen by Provider: Aug 09, 2022 Time Seen by Provider: 11:44 History of Present Illness (Tele-ICU Physician , consultation as per request of PCP Service provided via interactive audio and video telecommunications E-CARE system to a patient admitted to ICU bed in [facility]. Available chart/ vitals / labs / Images reviewed H&P is from ER notes Patient's information available about PMH, Shx, Fhx allergy reviewed inEMR. ROS as per chart and RN report Now in ICU, hemodynamically stable Video assessment done using teleICU camera, rest of exam as per RN Discussed with RN. Hospital course: 08/09 - ARF on bipap A/P Acute on chronic hypercarbic and hypoxic resp failure ( AAO) ) -suspected AECOPD - NIPPV , on Bipap / 80% , rr 20 TV 600 MV 11L - follow abg - if maynor RVSP and ddimer - will order w/up for PE AECOPD - cont nebs -cont steroids IV Suspected LRTI ( no PNA on cxr) - empiric abx started - will do sputum cx ( risk for resistant bact ) COPD with chonic hypoxic ( 4L O2 nc ) and chronic Co2 retention ( suspect Co2 @50s baseline ) - PFT 01/2021 severe obst ( ne responce o br dil ) severe DLCO reduction - CT ch 08/2020 - on prednisone 5 po daily H /o mild pulm HTN -ECHO 04/2019 - EF 65% , RVSP 35 mmHg - ECHO in progress Right LE edema - patiet reports chronic with habitually keeping it off the bed Elev lactate - probably due hypoxia , not extent of sepsis severity - might need LE US to r/o dvt Lines : , (Central Line Necessity Reviewed) Crockett: OG: Nutrition: po Analgesia: Anxiety/ delirium VTE Prophylaxis: kim 40 Stress Ulcer Prophylaxis: Plans in collaboration with bedside consultants and IM MDs. Discussed with RN to reach out if any questions or concerns A total of _32 minutes of critical care time was devoted to this patient today, required to treat and/or prevent further deterioration of critical care condition ( as above ) . I am remotely monitoring this patient from another state. I am unable to do the bedside exam, and history/physical and pertinent information is taken from other notes in the computer and bedside staff. . Allergies and Home Medications Allergies Coded Allergies: No Known Drug Allergies (Unverified , 03/30/22) Home Medications Albuterol Sulfate 1 Puff Puff, 2 PUFF IH Q4H PRN for SHORTNESS OF BREATH, (Repor sunitha) Albuterol Sulfate 2.5 Mg/3 Ml (0.083 %) Vial.neb, 2.5 MG INH Q4H PRN for W HEEZING Prescribed by: ABDIAS NICHOLS on 11/12/21 1511 Albuterol Sulfate 1 Puff Puff, 2 PUFF INH Q4H PRN for SHORTNESS OF BREATH 1 PUFF = 90 MCG Prescribed by: KOTA SUMMERS on 03/30/22 1559 Aspirin 81 Mg Tab.chew, 81 MG PO DAILY@0900 Prescribed by: ROMMEL WEBER on 04/17/19 0855 Atorvastatin Calcium 20 Mg Tablet, 20 MG PO HS, (Reported) Azithromycin 250 Mg Tablet, 250 MG PO DAILY Prescribed by: LINDA KIRK on 06/09/22 1950 Buprenorphine HCl/Naloxone HCl 1 Each Tab.subl, 2.5 TAB SL DAILY, (Reported) Fluticasone/Salmeterol 12 Gm Hfa.aer.ad, 2 PUFF IH BID@08,20 Prescribed by: ANNITA ALBERT on 04/17/19 1322 Metoprolol Succinate 25 Mg Tab.er.24h, 12.5 MG PO DAILY Prescribed by: ROMMEL WEBER on 04/17/19 0855 Prednisone 50 Mg Tab, 50 MG PO DAILY Prescribed by: LINDA KIRK on 06/09/22 1950 Past Medical/Social/Family Hx Patient Social History Tobacco Use?: No Smoking Status: Former Smoker Smokeless Tobacco Frequency: Former User Use of E-Cig and/or Vaping dev: Yes E-Cig and/or Vaping Freq: Never a User Substance use?: Yes Alcohol Use?: No Pt stated abuse/neglect: No Immunizations Up To Date Influenza Vaccine Up-to-Date: No; Not Current First/Initial COVID19 Vaccinat: 12/24 Second COVID19 Vaccination Travis: 01/24 Tetanus Booster (TDap): Unknown Hepatitis A: No Hepatitis B: No TB Skin Test: None Current Status Advance Directives: Yes Advance Directive Location: Family to bring in copy Communicates: Verbally Primary Language: Liberian Preferred Spoken Language: Liberian Is interpretation needed?: No Implanted or Applied Medical D: None Review of Systems Constitutional: see HPI Focused Exam Lactate Level 08/09/22 06:40: Lactic Acid Level 7.64*H 08/09/22 08:35: Lactic Acid Level 1.16 Height, Weight, BMI Height: 5'8.00" Weight: 135lbs. 0.0oz. 61.838802za; 29.29 BMI Method: Lactic Acid Level Laboratory Tests Test 08/09/22 08:35 Lactic Acid Level 1.16 MMOL/L (0.50-2.00) Exam Exam Patient acknowledged, consented, and participated in this virtual visit which was conducted using real time audio/video Vital Signs Date Time Temp Pulse Resp B/P (MAP) Pulse Ox O2 Delivery O2 Flow Rate FiO2 08/09/22 10:47 112 18 93 70.00 08/09/22 10:45 112 38 138/105 (116) 97 NIV Bilevel 70.00 08/09/22 10:30 106 32 142/96 (111) 97 NIV Bilevel 70.00 08/09/22 10:22 36.2 107 100 100 08/09/22 10:15 110 33 131/77 (95) 97 NIV Bilevel 70.00 08/09/22 10:00 109 11 136/111 (119) 98 NIV Bilevel 70.00 08/09/22 09:56 107 08/09/22 09:54 100 NIV Bilevel 70.00 08/09/22 09:45 100 NIV Bilevel 80.00 08/09/22 09:37 36.2 115 124/112 (116) 100 NIV Bilevel 100.00 08/09/22 09:09 116 20 140/97 100 NIV Bilevel 08/09/22 06:46 120 20 99 100.00 08/09/22 06:30 36.7 142 30 127/89 (102) 96 NIV Bilevel 08/09/22 06:30 96 NIV Bilevel 100 08/09/22 06:30 Nasal Cannula 4.00 Height & Weight Height: 5'8.00" Weight: 135lbs. 0.0oz. 61.938699lo; 29.29 BMI Method: General Appearance: Other Gastrointestinal: soft Results Lab Laboratory Tests 08/09/22 06:40 Assessment/Plan Assessment/Plan 1 GRETEL ANTONIO MD Aug 09, 2022 11:45
[2022-08-09] MEDS: inSUlin ASPART (NovoLOG) 1 UNIT/0.01 ML (CHARGE PER UNIT) SC SCH ×3 (12:00→21:41)
[2022-08-09] MEDS ORDERED: PRED5TAB PO (12:46)
[2022-08-09] MEDS ORDERED: GUAI600T43 PO (12:46)
[2022-08-09] MEDS ORDERED: FLUO20CA48 PO (12:46)
[2022-08-09] MEDS ORDERED: FLUT1BLS15 INH (12:46)
[2022-08-09 12:55] LABS: BILIRUBIN,URINE NEGATIVE (NEGATIVE); CLARITY,URINE CLEAR; COLOR,URINE YELLOW; GLUCOSE, URINE (UA) NEGATIVE (NEGATIVE); KETONES,URINE NEGATIVE (NEGATIVE); LEUKOCYTE ESTERASE ,URINE NEGATIVE (NEGATIVE); NITRITE,URINE NEGATIVE (NEGATIVE); PROTEIN,URINE TRACE (NEGATIVE)
--- NOTE | 2022-08-09 13:04 | History & Physical-Hospitalist ---
MARCOS DE LA O 08/09/22 1304: History of Present Illness HPI/Chief Complaint This is a 62 y/o male who presented to the ED today with SOB. He reports that over the past month he has had increasing dyspnea that is largely exertional with activities as minimal as standing. He says for the past week it has progressed more severely. He reports he sees Dr. Hutson and saw him about a month ago when these symptoms started and he gave him a low-dose prednisone in addition to his at-home inhalers but it does not seem to have helped that much. He also notes he has been recently gaining weight and has had new right lower leg/calf swelling and redness. He reports that he has very minor chest pain occasionally with breathing. He denies fever, chills, recent URI or other illnesses. He notes his BPs have been high recently but does not have a history of this. His history is significant for COPD and substance use disorder (opioids, alcohol) and says he has been clean for 4-5 years now. He has his own suboxone with him currently. He has a 51 pack-year former smoking history per records from PFTs in 2020. In 2017 he received a heart workup with Dr. Chicas including an Echo, Cath, and stress testing. He received PFTs in 2020 consistent with severe emphysema/COPD. Source: patient, RN/MD, RN notes reviewed Date Seen 08/09/22 Time Seen by a Provider: 11:00 Attending Physician Vianca Hutson MD PCP Admitting Physician: Nakia Mendoza DO Attending Physician: Nakia Mendoza DO Referring Physician Date of Admission Aug 09, 2022 at 09:24 Home Medications & Allergies Home Medications Reviewed patient Home Medication Reconciliation performed by pharmacy medication reconciliations hardware technician and/or nursing. Patients Allergies have been reviewed. Allergies Allergies Coded Allergies No Known Drug Allergies (Tlnhpigfyy04/25/22) Past Ovsuvkb-Cnwvto-Rwslgm Hx Patient Social History Tobacco Use?: No Smoking Status: Former Smoker Smokeless Tobacco Frequency: Former User Use of E-Cig and/or Vaping dev: Yes Use of E-Cig and/or Vaping Gelacio: Never a User Substance use?: Yes Alcohol Use?: No Pt feels they are or have been: No Immunizations Up To Date Date of Influenza Vaccine: Feb 04, 2019 First/Initial COVID19 Vaccinat: 12/24 Second COVID19 Vaccination Travis: 01/24 Tetanus Booster (TDap): Unknown Hepatitis A: No Hepatitis B: No Seasonal Allergies Seasonal Allergies: No Current Status Advance Directives: Yes Advance Directive Location: Family to bring in copy Communicates: Verbally Primary Language: Jamaican Preferred Spoken Language: Jamaican Is interpretation needed?: No Implanted or Applied Medical D: None Past Medical History Surgeries: Orthopedic COPD Currently Using CPAP: No Currently Using BIPAP: No High Cholesterol, Hypertension Kidney Stones Abdominal Hernia Family Medical History No Pertinent Family Hx Mother at age 60, unsure of what cause. Review of Systems Constitutional: see HPI; No chills; diaphoresis; No fever; weight gain EENTM: No ear discharge, No hearing loss, No nose congestion Respiratory: dyspnea on exertion; No hemoptysis, No orthopnea; short of breath, wheezing Cardiovascular: see HPI, edema Gastrointestinal: no symptoms reported Genitourinary: no symptoms reported Musculoskeletal: joint swelling Skin: no symptoms reported Psychiatric/Neurological: No Symptoms Reported Physical Exam Physical Exam Vital Signs Vital Signs - First Documented 08/09/22 06:30 Temp 36.7 Pulse 142 Resp 30 B/P (MAP) 127/89 (102) Pulse Ox 96 O2 Delivery Nasal Cannula O2 Flow Rate 4.00 FiO2 100 Capillary Refill : Height, Weight, BMI Height: 5'8.00" Weight: 135lbs. 0.0oz. 61.317551hf; 29.29 BMI Method: General Appearance: Anxious, Mild Distress HEENT: PERRL/EOMI, Normal ENT Inspection, Other (BiPAP in place) Neck: Full Range of Motion, Non Tender, Supple Respiratory: Crackles (Global fine inspiratory and expiratory crackles.) Cardiovascular: Regular Rate, Rhythm, Tachycardia, Other (Right lower extremity has +1-2 pitting edema Pedal pulse is diminished at +1/4. LLE has minimal edema, pulse is +2/4.) Gastrointestinal: Normal Bowel Sounds, Non Tender, Soft, Hernia (Abdominal wall hernia present just left of midline above umbilicus) Back: Normal Inspection Extremity: Swelling (Right lower extremity swelling as noted in CV - no pain with palpation. Erythematous.) Neurologic/Psychiatric: Alert, Oriented x3 Skin: Normal Color, Diaphoresis Results Results/Procedures Labs Laboratory Tests 08/09/22 06:40 Patient resulted labs reviewed. Imaging: Reviewed Imaging Films Imaging NAME: URMILA GORDON V MED REC#: [id number] PT STATUS: REG ER : 1960 PHYSICIAN: SUREKHA MARSHALL MD ADMIT DATE: 08/09/22/ER Signed Date of Exam:08/09/22 CHEST 1 VIEW, AP/PA ONLY INDICATION: Shortness of breath Portable chest 6:54 AM There are emphysematous changes in the lungs. There is interstitial thickening at the lung bases. IMPRESSION: Basilar interstitial fibrosis with underlying COPD. There are no acute infiltrates, effusions or pneumothoraces. Dictated by: Dictated on workstation # [id number] Dict: 08/09/22702 Trans: 08/09/22740 CVB [id number] Interpreted by: ABDIAS GONG MD Electronically signed by: ABDIAS GONG MD 08/09/22740 Assessment/Plan Assessment and Plan Assessment: This is a 62 y/o male who presented with AHRF 2/2 to likely COPD exacerbation and was admitted to the ICU AHRF Hypercapnea COPD exacerbation Elevated lactic acid Acute lower extremity swelling Hx of CAD Hx of HTN Hx of HLD AHRF Hypercapnea COPD exacerbation -Currently stabilized on BIPAP, started at 80% now down to 60%. -IV solu-medrol 80mg q6hr IV -Montelukast 10 mg HS -Cefepime prophylaxis/exacerbation coverage. Sputum cultures pending. Flu A/B, COVID panel negative. -Albuterol and Ipratropium scheduled/PRN -CXR c/w COPD, no consolidations apparent -ABG upon ICU admit: 7.29//34/34 - Likely acute on chronic respiratory acidosis. Will repeat. -D-dimer elevated, in setting of RLL edema/erythema will likely check CTA to r/o PE -Echo to recheck hx of pulmonary artery hypertension -Previous PFTs: FEV1/FVC 0.36, DLCO significantly elevated in 2020 c/w COPD/emphysema. -eICU following; appreciate recs -Denies current smoking -On albuterol PRN, fluticasone/umeclidin/vilanter daily at home, 5mg PO prednisone for past month, guifenesin PRN Acute Rt lower extremity swelling -Markedly larger diameter than left, warm to touch. No pain with palpation/squeeze -Doppler U/S to evaluate -Component of PAD? Elevated Lactic Acid -Elevated in setting of pO2 in 30s - likely hypoxia driven -Repeat after a couple hours of therapy is WNL -Can FU in 1-2 days to ensure resolution. Hx of CAD -Previously followed with Dr. Chicas; had been prescribed daily ASA, metoprolol, atorvastatin. -Med rec only showing atorvastatin -Consider consulting cardiology for further evaluation Hx of HTN -Will attempt to see if any outpatient treatment initiated -Pressures mildly elevated Hx of HLD -Atorvastatin home med. -Can continue after stabilizing FEN/GI -Maintenance NS at 60ml/hr -Replace electrolytes per ICU protocol -Regular diet as tolerated; SSI -Bowel regimen (senna/docusate/miralax/lactulose), PPI/H2 bhumi for ulcer ppx. Dispo: Critical. Continue aggressive care in ICU. Will repeat ABG this PM, FU on ordered studies/labs. NAKIA MENDOZA DO 08/10/22 0449: Review of Systems Constitutional: see HPI Physical Exam Physical Exam General Appearance: Anxious, Mild Distress Respiratory: Crackles (Global fine inspiratory and expiratory crackles.) Assessment/Plan Admission Diagnosis Acute hypercapneic respiratory failure Admission Status: Inpatient Order (span 2 midnights) Reason for Inpatient Admission: resp failure Supervisory-Addendum Brief Verification & Attestation Participated in pt care: history, MDM, physical Personally performed: exam, history, MDM, supervision of care Care discussed with: Medical Student Procedures: n/a Results interpretation: Verified all documentation Verification and Attestation of Medical Student E/M Service A medical student performed and documented this service in my presence. I reviewed and verified all information documented by the medical student and made modifications to such information, when appropriate. I personally performed the physical exam and medical decision making. Nakia Mendoza Aug 10, 2022,04:49 MARCOS DE LA O Aug 09, 2022 13:04 NAKIA MENDOZA DO Aug 10, 2022 04:49
[2022-08-09 13:12] LABS: BACTERIA,URINE NEGATIVE /HPF; CALCIUM OXALATE CRYSTALS,UR MODERATE /LPF
[2022-08-09] MEDS: RT-IPRATROPIUM (ATROVENT) 0.5MG/2.5ML AMP IH SCH ×3 (14:21→22:16)
[2022-08-09] MEDS: RT-ALBUTEROL SULF 2.5 MG/3 ML PRE-MIX VIAL INH SCH ×3 (14:21→22:16)
[2022-08-09 14:23] VITALS: BP 156/100
[2022-08-09] MEDS: CEFEPIME INJECTION 1,000 MG in NS (IVPB) 50 ML IV SCH ×2 (14:59→20:35)
[2022-08-09 15:11] LABS: ABG BASE EXCESS 3.9 MMOL/L (-2.5-2.5); ABG OXYGEN SATURATION 100 % (94-100); ABG PCO2 62 MMHG (35-45); ABG PO2 186 MMHG (79-93); ABG TCO2 31.8 MMOL/L (21.0-31.0)
[2022-08-09 15:18] LABS: ALLENS TEST YES-POS; INSPIRED O2 60%; PATIENT TEMP 36.8; VENTILATOR NO
[2022-08-09] MEDS ORDERED: NS IV 500 ML 500 ML IV ONE (18:45)
[2022-08-09] MEDS: NICOTINE 14 MG (NICODERM) PATCH TD SCH (20:02)
[2022-08-09] MEDS: MONTELUKAST 10 MG (SINGULAIR) TAB PO SCH (20:35)
[2022-08-09] MEDS: DOCUSATE SODIUM 100 MG (COLACE) CAP PO SCH (21:00)
[2022-08-09] MEDS: SENNOSIDES 8.6 MG (SENOKOT) TAB PO SCH (21:00)
[2022-08-10] MEDS: LORazepam 0.5 MG (ATIVAN) TABLET PO PRN ×2 (00:53→22:34)
[2022-08-10] MEDS: RT-IPRATROPIUM (ATROVENT) 0.5MG/2.5ML AMP IH SCH ×6 (02:20→21:38)
[2022-08-10] MEDS: RT-ALBUTEROL SULF 2.5 MG/3 ML PRE-MIX VIAL INH SCH ×6 (02:20→21:38)
[2022-08-10 02:21] VITALS: BP 119/71
[2022-08-10] MEDS: CEFEPIME INJECTION 1,000 MG in NS (IVPB) 50 ML IV SCH ×4 (03:14→21:23)
[2022-08-10 04:40] LABS: ABG BASE EXCESS 2.7 MMOL/L (-2.5-2.5); ABG OXYGEN SATURATION 100 % (94-100); ABG PCO2 53 MMHG (35-45); ABG PO2 111 MMHG (79-93); ABG TCO2 29.8 MMOL/L (21.0-31.0)
[2022-08-10 04:41] LABS: ABG PH 7.34 (7.37-7.43); ALLENS TEST YES-POS; INSPIRED O2 50%; PATIENT TEMP 36.2; VENTILATOR NO
[2022-08-10] MEDS: methylPREDNISolone 40 MG/ML (Solu-MEDROL) VIAL IV SCH ×4 (05:28→22:39)
[2022-08-10] MEDS: KCL 20 MEQ TAB (K-DUR) PO SCH (06:00)
[2022-08-10] MEDS: POTASSIUM CL 10MEQ/50ML IVPB 50 ML IV SCH (06:00)
[2022-08-10] MEDS: MAGNESIUM 1 GM/100 ML IVPB 100 ML IV SCH ×3 (06:00→10:42)
[2022-08-10 06:08] LABS: BASOPHILS % (AUTO) 0 % (0-10); EOSINOPHILS % (AUTO) 0 % (0-10); HEMATOCRIT 40 % (40-54); HEMOGLOBIN 13.2 g/dL (13.3-17.7); LYMPHOCYTES # (AUTO) 0.4 10^3/uL (1.0-4.0); LYMPHOCYTES % (AUTO) 3 % (12-44); MEAN CORPUSCULAR HEMOGLOBIN 32 pg (25-34); MEAN CORPUSCULAR HGB CONC 33 g/dL (32-36); MEAN CORPUSCULAR VOLUME 95 fL (80-99); MEAN PLATELET VOLUME 9.7 fL (9.0-12.2); MONOCYTES # (AUTO) 0.1 10^3/uL (0.0-1.0); MONOCYTES % (AUTO) 1 % (0-12); NEUTROPHILS # (AUTO) 11.2 10^3/uL (1.8-7.8); NEUTROPHILS % (AUTO) 95 % (42-75); PLATELET COUNT 175 10^3/uL (130-400); WHITE BLOOD COUNT 11.8 10^3/uL (4.3-11.0)
[2022-08-10 06:16] VITALS: BP 103/69
[2022-08-10 06:23] LABS: ALBUMIN 3.5 GM/DL (3.2-4.5); BILIRUBIN,TOTAL 0.6 MG/DL (0.1-1.0); CALCIUM 9.4 MG/DL (8.5-10.1); CREATININE SERUM 0.88 MG/DL (0.60-1.30); MAGNESIUM 1.8 MG/DL (1.6-2.4); PHOSPHORUS 2.2 MG/DL (2.3-4.7); POTASSIUM 4.1 MMOL/L (3.6-5.0)
[2022-08-10] MEDS: inSUlin ASPART (NovoLOG) 1 UNIT/0.01 ML (CHARGE PER UNIT) SC SCH ×4 (06:51→21:23)
[2022-08-10] MEDS: DOCUSATE SODIUM 100 MG (COLACE) CAP PO SCH ×2 (08:52→21:00)
[2022-08-10] MEDS: SENNOSIDES 8.6 MG (SENOKOT) TAB PO SCH ×2 (08:52→21:00)
[2022-08-10] MEDS: NICOTINE 14 MG (NICODERM) PATCH TD SCH (08:53)
[2022-08-10] MEDS ORDERED: NICOTINE 14 MG (NICODERM) PATCH TD SCH (09:00)
--- NOTE | 2022-08-10 09:01 | Diagnostic Imaging Report ---
EXAMINATION: Chest 1 view HISTORY: COPD COMPARISON: 08/09/2022 FINDINGS: Right base airspace opacity has resolved and left base opacity is improved. There are small pleural effusions. No pneumothorax. Heart size is normal. IMPRESSION: 1. Improving bibasilar airspace opacities and small pleural effusions. Dictated by: Dictated on workstation # [id number]
[2022-08-10] MEDS ORDERED: guaiFENesin (MUCINEX) 600 MG TAB PO PRN (09:15)
--- NOTE | 2022-08-10 09:41 | Tele-ICU Progress Note ---
Subjective Date Seen by a Provider: Aug 10, 2022 Time Seen by a Provider: 09:38 Subjective/Events-last exam (Tele-ICU Physician , Progress Note ) Service provided via interactive audio and video telecommunRingMD E-CARE system to a patient admitted to ICU bed in [facility]. Patient is seen today due to persistent need of ICU care Available chart/ vitals / labs / Images reviewed Video assessment done using teleICU camera, rest of exam as per RN Discussed with RN Events overnight : Afebrile hemodynamically stable Respiratory - I/O = Drips: ns 60 Pressors- no Hospital course: 08/09 - ARF on bipap 08/10 - VT 40L 50 % ( night was on bipap ) A/P Acute on chronic hypercarbic and hypoxic resp failure ( AAO) ) -suspected AECOPD - NIPPV , on Bipap /8 80% , rr 20 TV 600 MV 11L - TODAY IS ON VT - VT 40L 50 %- doing well , shameka cont prn BIPAP and VT - RVSP 25 and ddimer borderline - low suspicios for PE AECOPD - cont nebs -cont steroids IV Suspected LRTI ( no PNA on cxr) - empiric abx started - will do sputum cx ( risk for resistant bact ) COPD with chonic hypoxic ( 4L O2 nc ) and chronic Co2 retention ( suspect Co2 @50s baseline ) - PFT 01/2021 severe obst ( no response o br dil ) severe DLCO reduction - CT ch 08/2020 - on prednisone 5 po daily H /o mild pulm HTN -ECHO 04/2019 - EF 65% , RVSP 35 mmHg - ECHO in progress Right LE edema - patiet reports chronic with habitually keeping it off the bed Elev lactate - probably due hypoxia , not extent of sepsis severity - might need LE US to r/o dvt to resume subacute as per primary team Lines : periph , (Central Line Necessity Reviewed) Crockett: in and out 08/09 OG: Nutrition: po Analgesia: Anxiety/ delirium VTE Prophylaxis: kim 40 Stress Ulcer Prophylaxis: Plans in collaboration with bedside consultants and IM MDs. Discussed with RN to reach out if any questions or concerns A total of _32 minutes of critical care time was devoted to this patient today, required to treat and/or prevent further deterioration of critical care condition ( as above ) . I am remotely monitoring this patient from another state. I am unable to do the bedside exam, and history/physical and pertinent information is taken from other notes in the computer and bedside staff. . Sepsis Event Evaluation Height, Weight, BMI Height: 5'8.00" Weight: 135lbs. 0.0oz. 61.399370do; 30.29 BMI Method: Focused Exam Lactate Level 08/09/22 06:40: Lactic Acid Level 7.64*H 08/09/22 08:35: Lactic Acid Level 1.16 Exam Exam Patient acknowledged, consented, and participated in this virtual visit which was conducted using real time audio/video Vital Signs Date Time Temp Pulse Resp B/P (MAP) Pulse Ox O2 Delivery O2 Flow Rate FiO2 08/10/22 09:00 107 167/103 (124) 95 Vapotherm 40.00 50.00 08/10/22 08:15 Vapotherm 40.00 50.00 08/10/22 08:00 103 144/83 (103) 95 NIV Bilevel 50.00 08/10/22 07:55 35.9 08/10/22 07:00 93 08/10/22 07:00 93 131/80 (97) 96 NIV Bilevel 50.00 08/10/22 06:16 93 20 98 50.00 08/10/22 06:00 69 103/69 (80) 96 NIV Bilevel 50.00 08/10/22 05:00 82 114/72 (86) 96 NIV Bilevel 50.00 08/10/22 04:00 96 NIV Bilevel 50 08/10/22 04:00 75 128/83 (98) 91 NIV Bilevel 50.00 08/10/22 03:00 80 112/71 (85) 97 NIV Bilevel 50.00 08/10/22 02:21 77 15 97 50.00 08/10/22 02:00 78 119/71 (87) 97 NIV Bilevel 50.00 08/10/22 01:00 80 35 117/79 (92) 98 NIV Bilevel 50.00 08/10/22 01:00 80 08/10/22 00:00 93 125/79 (94) 98 NIV Bilevel 50.00 08/10/22 00:00 97 NIV Bilevel 50 08/09/22 23:00 99 142/86 (104) 97 NIV Bilevel 50.00 08/09/22 22:17 96 Vapotherm 40.00 50 08/09/22 22:00 99 142/86 (104) 97 Vapotherm 40.00 50.00 08/09/22 21:00 90 117/85 (96) 97 Vapotherm 40.00 50.00 08/09/22 20:00 98 17 134/90 (105) 97 Vapotherm 40.00 50.00 08/09/22 20:00 96 Vapotherm 40.00 50 08/09/22 19:35 36.0 08/09/22 19:05 96 08/09/22 19:04 96 Vapotherm 40.00 50 08/09/22 19:00 101 58 161/110 (127) 97 Vapotherm 40.00 50.00 08/09/22 18:14 96 Vapotherm 40.00 50.00 08/09/22 18:00 75 16 97/61 (73) 97 NIV Bilevel 50.00 08/09/22 17:05 97 NIV Bilevel 50.00 08/09/22 17:00 82 15 98/61 (73) 97 NIV Bilevel 60.00 08/09/22 16:00 96 NIV Bilevel 60 08/09/22 16:00 102 103/89 (94) 98 NIV Bilevel 60.00 08/09/22 15:58 35.9 08/09/22 15:00 107 142/93 (109) 98 NIV Bilevel 60.00 08/09/22 14:23 97 18 98 60.00 08/09/22 14:00 107 156/100 (118) 97 NIV Bilevel 60.00 08/09/22 13:00 110 139/118 (125) 96 NIV Bilevel 60.00 08/09/22 12:30 NIV Bilevel 60.00 08/09/22 12:15 102 08/09/22 12:00 107 22 138/116 (123) 98 NIV Bilevel 70.00 08/09/22 12:00 96 NIV Bilevel 60 08/09/22 11:00 107 43 118/84 (95) 96 NIV Bilevel 70.00 08/09/22 10:47 112 18 93 70.00 08/09/22 10:45 112 38 138/105 (116) 97 NIV Bilevel 70.00 08/09/22 10:30 106 32 142/96 (111) 97 NIV Bilevel 70.00 08/09/22 10:22 36.2 107 100 100 08/09/22 10:15 110 33 131/77 (95) 97 NIV Bilevel 70.00 08/09/22 10:00 109 11 136/111 (119) 98 NIV Bilevel 70.00 08/09/22 09:56 107 08/09/22 09:54 100 NIV Bilevel 70.00 08/09/22 09:45 100 NIV Bilevel 100 08/09/22 09:45 100 NIV Bilevel 80.00 I & O 08/10/22 07:00 Intake Total 535 ml Output Total 695 ml Balance -160 ml Height & Weight Height: 5'8.00" Weight: 135lbs. 0.0oz. 61.141411dm; 30.29 BMI Method: General Appearance: Anxious, Mild Distress HEENT: PERRL/EOMI, Normal ENT Inspection, Other (BiPAP in place) Neck: Full Range of Motion, Non Tender, Supple Respiratory: Crackles (Global fine inspiratory and expiratory crackles.) Cardiovascular: Regular Rate, Rhythm, Tachycardia, Other (Right lower extremity has +1-2 pitting edema Pedal pulse is diminished at +1/4. LLE has minimal edema, pulse is +2/4.) Gastrointestinal: soft Extremity: Swelling (Right lower extremity swelling as noted in CV - no pain wi th palpation. Erythematous.) Neurologic/Psychiatric: Alert, Oriented x3 Skin: Normal Color, Diaphoresis Results Lab Laboratory Tests 08/09/22 06:40 08/10/22 04:16 Assessment/Plan Assessment/Plan 1 GRETEL ANTONIO MD Aug 10, 2022 09:41
[2022-08-10] MEDS: NICOTINE PATCH REMOVAL TP SCH (10:37)
--- NOTE | 2022-08-10 10:57 | Progress Note - Hospitalist ---
DE LA OMARCOS Jesusita 08/10/22 1057: Subjective HPI/CC On Admission Date Seen by Provider: Aug 10, 2022 Time Seen by Provider: 08:10 This is a 62 y/o male who presented to the ED today with SOB. He reports that over the past month he has had increasing dyspnea that is largely exertional with activities as minimal as standing. He says for the past week it has progressed more severely. He reports he sees Dr. Hutson and saw him about a month ago when these symptoms started and he gave him a low-dose prednisone in addition to his at-home inhalers but it does not seem to have helped that much. He also notes he has been recently gaining weight and has had new right lower leg/calf swelling and redness. He reports that he has very minor chest pain occasionally with breathing. He denies fever, chills, recent URI or other illnesses. He notes his BPs have been high recently but does not have a history of this. His history is significant for COPD and substance use disorder (opioids, alcohol) and says he has been clean for 4-5 years now. He has his own suboxone with him currently. He has a 51 pack-year former smoking history per records from PFTs in 2020. In 2017 he received a heart workup with Dr. Chicas including an Echo, Cath, and stress testing. He received PFTs in 2020 consistent with severe emphysema/COPD. Subjective/Events-last exam Patient is seen at bedside this AM. He is sitting up with his feet down in the bed. He has just been switched to vapotherm and seems to be doing well. He complains of bladder pressure/pain and inability to start his flow to urinate. He says he's been trying for hours to go. He was able to get some out overnight but has been straining for several hours since. He feels his breathing is improved. He continues to deny CP and pain in his right lower extremity. During course of encounter he reveals that he has only been using albuterol at home and he does not have his Trelegy inhaler and is unaware that he should have it so he has likely not been on any maintenance therapy for his COPD besides the daily oral steroid. He reports no other issues. He reports he's been coughing more and feels he has mucous to get out but has been unable to produce any - feels it's in the back of his throat. Focused Exam Lactate Level 08/09/22 06:40: Lactic Acid Level 7.64*H 08/09/22 08:35: Lactic Acid Level 1.16 Objective Exam Vital Signs Vital Signs Date Time Temp Pulse Resp B/P (MAP) Pulse Ox O2 Delivery O2 Flow Rate FiO2 08/10/22 10:10 93 Vapotherm 35.00 40 08/10/22 09:00 107 167/103 (124) 08/10/22 07:55 35.9 08/10/22 06:16 20 Capillary Refill : General Appearance: No Apparent Distress HEENT: PERRL/EOMI Neck: Full Range of Motion, Non Tender, Supple Respiratory: Chest Non Tender, Crackles (Fine crackles in lower lung lobes/bases. Upper lobes are more coarse than previous.) Cardiovascular: Regular Rate, Rhythm, No Edema, No Murmur Gastrointestinal: Normal Bowel Sounds, Non Tender, Soft Back: Normal Inspection Extremity: Pedal Edema (Right lower leg still has 1-2+ pitting edema from mid- mock down to foot. Left lower extremity has no edema. No pain with palpation. Mildly warm to touch. ) Neurologic/Psychiatric: Oriented x3 Skin: Normal Color, Diaphoresis Results/Procedures Lab Laboratory Tests 08/10/22 04:16 Patient resulted labs reviewed. Imaging: Reviewed Imaging Films Radiology NAME: URMILA GORDON V MED REC#: [id number] PT STATUS: ADM IN : 1960 PHYSICIAN: NAKIA MENDOZA DO ADMIT DATE: 08/09/22/ICU Draft Date of Exam:08/10/22 CHEST 1 VIEW, AP/PA ONLY EXAMINATION: Chest 1 view HISTORY: COPD COMPARISON: 08/09/2022 FINDINGS: Right base airspace opacity has resolved and left base opacity is improved. There are small pleural effusions. No pneumothorax. Heart size is normal. IMPRESSION: 1. Improving bibasilar airspace opacities and small pleural effusions. Dictated on workstation # [id number] Dict: 08/10/22 0858 Trans: 08/10/22 0901 STUART [id number] Interpreted by: ARCENIO ORTIZ MD Electronically signed by: Assessment/Plan Assessment and Plan Assess & Plan/Chief Complaint Assessment: This is a 62 y/o male who presented with AHRF 2/2 to likely COPD exacerbation and was admitted to the ICU AHRF Hypercapnea COPD exacerbation Elevated lactic acid Acute lower extremity swelling Hx of CAD Hx of HTN Hx of HLD AHRF Hypercapnea COPD exacerbation -Initially stabilized on BIPAP, now on vapotherm 40 LPM over 35%. -Coninuing IV solu-medrol 80mg q6hr IV -Continuing Montelukast 10 mg HS -CXR has improving bibasilar airpsace opacities compared to previous (08/10) -WBC 14.9 --> 11.8 (08/10). Cefepime prophylaxis/exacerbation coverage for at least one more day, may deescalate tomorrow. -Flu A/B, COVID panel negative. -Albuterol and Ipratropium scheduled/PRN -ABG upon ICU admit: 7.29/74/34/34 --> 7.34/53/111/28 (08/10) - improved acute respiratory acidosis, underlying chronic suspected. -D-dimer borderline elevated. -Echo to recheck hx of pulmonary artery hypertension --> no change in pulm a. pressures, improved EF. Will hold off on CTA. -Previous PFTs: FEV1/FVC 0.36, DLCO significantly elevated in 2020 c/w COPD/emphysema. -eICU following; appreciate recs -Denies current smoking -On albuterol PRN, non-compliant with fluticasone/umeclidin/vilanter daily at home, 5mg PO prednisone for past month, guifenesin PRN -Will start [facility] inpatient to assist getting to a maintenance level. Acute Rt lower extremity swelling -Markedly larger diameter than left, warm to touch. No pain with palpation/squeeze -In setting of borderline d-dimer, unchanged pulmonary artery pressures and improvement will hold on further eval for PE/DVT. -Suspect component of PAD Elevated Lactic Acid -Elevated in setting of pO2 in 30s - likely hypoxia driven -Repeat after a couple hours of therapy is WNL Hx of CAD -Previously followed with Dr. Chicas; had been prescribed daily ASA, metoprolol, atorvastatin. -Med rec only showing atorvastatin -Consider consulting cardiology for further evaluation Hx of HTN -Will attempt to see if any outpatient treatment initiated -Pressures mildly elevated Hx of HLD -Atorvastatin home med. -Can continue after stabilizing Hx of Opioid Use Disorder -Will resume patient's home Suboxone FEN/GI -Maintenance NS at 60ml/hr -Replace electrolytes per ICU protocol -Regular diet as tolerated; SSI -Bowel regimen (senna/docusate/miralax/lactulose). DVT PPx: Lovenox, SCDs Dispo: Critical but stable. Continue aggressive care in ICU. Will monitor response to vapotherm transition throughout the day and work towards movement toward floor status. NAKIA MENDOZA DO 08/11/22 0436: Supervisory-Addendum Brief Verification & Attestation Participated in pt care: history, MDM, physical Personally performed: exam, history, MDM, supervision of care Care discussed with: Medical Student Procedures: n/a Results interpretation: Verified all documentation Verification and Attestation of Medical Student E/M Service A medical student performed and documented this service in my presence. I reviewed and verified all information documented by the medical student and made modifications to such information, when appropriate. I personally performed the physical exam and medical decision making. Nakia Mendoza, Aug 11, 2022,04:36 MARCOS DE LA O Aug 10, 2022 10:57 NAKIA MENDOZA DO Aug 11, 2022 04:36
[2022-08-10] MEDS ORDERED: CATHETER FLUSH 10 ML SYR IVP PRN (11:00)
[2022-08-10] MEDS: ENOXAPARIN 40 MG/0.4 ML (LOVENOX) SYR SC SCH (11:58)
[2022-08-10 14:25] VITALS: BP 127/72
--- NOTE | 2022-08-10 14:54 | Physical Therapy Progress Note ---
Therapy Progress Note Patient lying supine in bed upon PT arrival, patient and nurse agreeable to treatment. Patient O2 sats decreased to 79% while talking with PT. Nurse notified and requested to discontinue treatment until am. ARCENIO BELTRAN PT Aug 10, 2022 14:54
[2022-08-10 17:00] LABS: POTASSIUM 4.3 MMOL/L (3.6-5.0)
[2022-08-10 17:01] LABS: CALCIUM 9.3 MG/DL (8.5-10.1)
[2022-08-10 17:06] LABS: CREATININE SERUM 0.79 MG/DL (0.60-1.30)
[2022-08-10 20:04] LABS: MAGNESIUM 2.2 MG/DL (1.6-2.4)
[2022-08-10] MEDS: POT PHOS/NA PHOS (K-PHOS NEUTRAL) PO SCH (21:23)
[2022-08-10] MEDS: MONTELUKAST 10 MG (SINGULAIR) TAB PO SCH (21:23)
[2022-08-10] MEDS: NS IV 1000 ML 1,000 ML IV SCH (21:23)
[2022-08-11] VITALS (7 sets, daily range): BP systolic 128–165; BP diastolic 76–108
[2022-08-11] MEDS: RT-ALBUTEROL SULF 2.5 MG/3 ML PRE-MIX VIAL INH SCH ×6 (02:35→22:31)
[2022-08-11] MEDS: RT-IPRATROPIUM (ATROVENT) 0.5MG/2.5ML AMP IH SCH ×6 (02:35→22:31)
[2022-08-11] MEDS: CEFEPIME INJECTION 1,000 MG in NS (IVPB) 50 ML IV SCH ×2 (04:04→08:24)
[2022-08-11] MEDS: methylPREDNISolone 40 MG/ML (Solu-MEDROL) VIAL IV SCH ×4 (04:04→23:01)
[2022-08-11 04:41] LABS: ABG BASE EXCESS 1.8 MMOL/L (-2.5-2.5); ABG OXYGEN SATURATION 99 % (94-100); ABG PCO2 49 MMHG (35-45); ABG PH 7.35 (7.37-7.43); ABG PO2 107 MMHG (79-93); ABG TCO2 28.5 MMOL/L (21.0-31.0); ALLENS TEST YES-POS; INSPIRED O2 50%; PATIENT TEMP 36.2; VENTILATOR NO
[2022-08-11 05:34] LABS: BASOPHILS % (AUTO) 0 % (0-10); EOSINOPHILS % (AUTO) 0 % (0-10); HEMATOCRIT 39 % (40-54); LYMPHOCYTES # (AUTO) 0.4 10^3/uL (1.0-4.0); LYMPHOCYTES % (AUTO) 2 % (12-44); MEAN CORPUSCULAR HEMOGLOBIN 32 pg (25-34); MEAN CORPUSCULAR HGB CONC 33 g/dL (32-36); MEAN CORPUSCULAR VOLUME 95 fL (80-99); MEAN PLATELET VOLUME 9.6 fL (9.0-12.2); MONOCYTES # (AUTO) 0.3 10^3/uL (0.0-1.0); MONOCYTES % (AUTO) 2 % (0-12); NEUTROPHILS # (AUTO) 14.9 10^3/uL (1.8-7.8); NEUTROPHILS % (AUTO) 95 % (42-75); PLATELET COUNT 180 10^3/uL (130-400); WHITE BLOOD COUNT 15.7 10^3/uL (4.3-11.0)
[2022-08-11 05:59] LABS: ALBUMIN 3.3 GM/DL (3.2-4.5); BILIRUBIN,TOTAL 0.4 MG/DL (0.1-1.0); CALCIUM 9.2 MG/DL (8.5-10.1); CREATININE SERUM 0.82 MG/DL (0.60-1.30); MAGNESIUM 2.1 MG/DL (1.6-2.4); PHOSPHORUS 2.7 MG/DL (2.3-4.7); TOTAL PROTEIN 6.7 GM/DL (6.4-8.2)
[2022-08-11] MEDS: MAGNESIUM 1 GM/100 ML IVPB 100 ML IV SCH (06:00)
[2022-08-11] MEDS: POTASSIUM CL 10MEQ/50ML IVPB 50 ML IV SCH (06:00)
[2022-08-11] MEDS: KCL 20 MEQ TAB (K-DUR) PO SCH (06:00)
[2022-08-11] MEDS: inSUlin ASPART (NovoLOG) 1 UNIT/0.01 ML (CHARGE PER UNIT) SC SCH ×4 (06:58→20:10)
[2022-08-11] MEDS ORDERED: RT--FLUTICASONE/SALMETEROL 113-14 (AIRDUO RespiCLICK) IH SCH (08:00)
[2022-08-11] MEDS: FLUoxetine HCL 20 MG (PROzac) CAP PO SCH (08:23)
[2022-08-11] MEDS: DOCUSATE SODIUM 100 MG (COLACE) CAP PO SCH ×2 (08:23→20:15)
[2022-08-11] MEDS: SENNOSIDES 8.6 MG (SENOKOT) TAB PO SCH ×2 (08:23→20:15)
[2022-08-11] MEDS: POT PHOS/NA PHOS (K-PHOS NEUTRAL) PO SCH (08:23)
[2022-08-11] MEDS: NICOTINE PATCH REMOVAL TP SCH (08:24)
[2022-08-11] MEDS: NICOTINE 14 MG (NICODERM) PATCH TD SCH (08:24)
[2022-08-11] MEDS: UMECLIDINIUM BROMIDE (INCRUSE ELLIPTA) 7'S IH SCH (08:58)
[2022-08-11] MEDS: RT--FLUTICASONE/SALMETEROL 232-14 (AIRDUO RespiCLICK) IH SCH ×2 (08:58→22:05)
[2022-08-11] MEDS ORDERED: NON-FORMULARY MEDICATION 1 EA EA (Fluticasone/Umeclidin/Vilanter (Trelegy Ellipta 200-62.5 INH SCH (09:00)
[2022-08-11] MEDS ORDERED: FUROSEMIDE 40 MG/4 ML INJ (LASIX) IVP NR (10:00)
[2022-08-11] MEDS: ENOXAPARIN 40 MG/0.4 ML (LOVENOX) SYR SC SCH (10:15)
[2022-08-11] MEDS: CEFDINIR 300 MG (OMNICEF) CAP PO SCH ×2 (10:15→20:09)
[2022-08-11] MEDS: guaiFENesin (MUCINEX) 600 MG TAB PO SCH ×2 (10:15→20:10)
[2022-08-11] MEDS: [UNRECOGNIZED DRUG - OTHER] SL SCH (10:20)
--- NOTE | 2022-08-11 10:56 | Tele-ICU Progress Note ---
Subjective Date Seen by a Provider: Aug 11, 2022 Time Seen by a Provider: 10:55 Subjective/Events-last exam (Tele-ICU Physician , Progress Note ) Service provided via interactive audio and video telecommunications E-CARE system to a patient admitted to ICU bed in [facility]. Patient is seen today due to persistent need of ICU care Available chart/ vitals / labs / Images reviewed Video assessment done using teleICU camera, rest of exam as per RN Discussed with RN Events overnight : Afebrile hemodynamically stable Respiratory - I/O = Drips: ns 60 Pressors- no Hospital course: 08/09 - ARF on bipap 08/10 - VT 40L 50 % ( night was on bipap ) , ECHO 08/10/22 EF 55 % , gt I dst dsf , RVSP 25-30 mmHg 08/11 - Bipap 40 % night , VT 35L 40 day A/P Acute on chronic hypercarbic and hypoxic resp failure ( AAO) ) -suspected AECOPD - NIPPV , on Bipap 21/01 80% , rr 20 TV 600 MV 11L - TODAY IS ON VT - VT 35 L 40 %- doing well , shameka cont prn BIPAP and VT day time - RVSP 25 and ddimer borderline - low suspicios for PE AECOPD - cont nebs -cont steroids IV - to decrease dose soon Suspected LRTI ( no PNA on cxr) - empiric abx started - OFF 08/11 - ? sputum cx ( risk for resistant bact ) COPD with chonic hypoxic ( 4L O2 nc ) and chronic Co2 retention ( suspect Co2 @50s baseline ) - PFT 01/2021 severe obst ( no response o br dil ) severe DLCO reduction - CT ch 08/2020 - on prednisone 5 po daily H /o mild pulm HTN -ECHO 04/2019 - EF 65% , RVSP 35 mmHg - ECHO 08/10/22 EF 55 % , gt I dst dsf , RVSP 25-30 mmHg - off IVF Right LE edema - patiet reports chronic with habitually keeping it off the bed Lines : periph , (Central Line Necessity Reviewed) Crockett: in and out 08/09 OG: Nutrition: po Analgesia: Anxiety/ delirium VTE Prophylaxis: kim 40 Stress Ulcer Prophylaxis: Plans in collaboration with bedside consultants and IM MDs. Discussed with RN to reach out if any questions or concerns A total of _32 minutes of critical care time was devoted to this patient today, required to treat and/or prevent further deterioration of critical care c ondition ( as above ) . I am remotely monitoring this patient from another state. I am unable to do the bedside exam, and history/physical and pertinent information is taken from other notes in the computer and bedside staff. . Sepsis Event Evaluation Height, Weight, BMI Height: 5'8.00" Weight: 135lbs. 0.0oz. 61.792818my; 30.47 BMI Method: Focused Exam Lactate Level 08/09/22 06:40: Lactic Acid Level 7.64*H 08/09/22 08:35: Lactic Acid Level 1.16 Exam Exam Patient acknowledged, consented, and participated in this virtual visit which was conducted using real time audio/video Vital Signs Date Time Temp Pulse Resp B/P (MAP) Pulse Ox O2 Delivery O2 Flow Rate FiO2 08/11/22 10:00 94 19 137/86 (103) 94 NIV Bilevel 40.00 08/11/22 09:02 Vapotherm 35.00 40 08/11/22 09:00 154 18 135/117 (123) 92 NIV Bilevel 40.00 08/11/22 08:58 94 Vapotherm 35.00 40 08/11/22 08:00 94 Vapotherm 35.00 40 08/11/22 08:00 105 27 92 NIV Bilevel 40.00 08/11/22 07:05 67 08/11/22 07:00 71 16 145/78 (100) 96 NIV Bilevel 40.00 08/11/22 06:44 79 14 100 NIV Bilevel 40.00 08/11/22 06:41 40.00 08/11/22 06:33 68 18 99 50.00 08/11/22 06:00 62 16 150/92 (110) 98 NIV Bilevel 50.00 08/11/22 05:00 67 20 123/73 (87) 98 NIV Bilevel 50.00 08/11/22 04:00 70 13 127/70 (97) 97 NIV Bilevel 50.00 08/11/22 04:00 97 NIV Bilevel 50 08/11/22 03:00 74 18 123/73 (94) 96 NIV Bilevel 50.00 08/11/22 02:36 61 16 97 50.00 08/11/22 02:00 75 14 133/76 (95) 97 NIV Bilevel 50.00 08/11/22 01:00 91 19 120/71 (86) 96 NIV Bilevel 50.00 08/11/22 01:00 80 08/11/22 00:00 95 NIV Bilevel 50 08/11/22 00:00 82 15 118/69 (85) 96 NIV Bilevel 50.00 08/10/22 23:00 87 29 111/70 (81) 97 NIV Bilevel 50.00 08/10/22 22:34 99 22 163/84 (110) 96 NIV Bilevel 50.00 08/10/22 22:00 90 96 Vapotherm 35.00 40.00 08/10/22 21:38 96 Vapotherm 35.00 40 08/10/22 21:00 154 148/78 (98) 95 Vapotherm 35.00 40.00 08/10/22 20:00 104 100/84 (92) 94 Vapotherm 35.00 40.00 08/10/22 20:00 96 Vapotherm 35.00 40 08/10/22 20:00 36.2 08/10/22 19:48 98 121/90 (107) 94 Vapotherm 35.00 40.00 08/10/22 19:00 96 08/10/22 18:30 94 Vapotherm 35.00 40 08/10/22 18:00 96 92/86 (88) 95 Vapotherm 40.00 50.00 08/10/22 17:00 93 96 Vapotherm 40.00 50.00 08/10/22 17:00 89 143/94 (110) 96 Vapotherm 40.00 50.00 08/10/22 16:30 Vapotherm 40.00 40 08/10/22 16:03 82 08/10/22 16:00 78 131/71 (91) 97 NIV Bilevel 50.00 08/10/22 16:00 96 NIV Bilevel 50 08/10/22 15:40 37.7 08/10/22 15:00 86 129/75 (93) 92 NIV Bilevel 50.00 08/10/22 14:25 88 17 95 50.00 08/10/22 14:00 89 17 127/72 (90) 90 NIV Bilevel 50.00 08/10/22 13:46 NIV Bilevel 50.00 08/10/22 13:10 NIV Bilevel 50 08/10/22 13:00 135 166/102 (123) 90 Vapotherm 40.00 50.00 08/10/22 12:44 128 08/10/22 12:16 35.7 08/10/22 12:00 112 45 152/81 (104) 93 Vapotherm 40.00 50.00 08/10/22 12:00 96 High Flow N/C 40.00 40 08/10/22 11:00 96 141/102 (115) 96 Vapotherm 40.00 50.00 I & O 08/11/22 07:00 Intake Total 1020 ml Output Total 850 ml Balance 170 ml Height & Weight Height: 5'8.00" Weight: 135lbs. 0.0oz. 61.035457ou; 30.47 BMI Method: General Appearance: No Apparent Distress HEENT: PERRL/EOMI Neck: Full Range of Motion, Non Tender, Supple Respiratory: Chest Non Tender, Crackles (Fine crackles in lower lung lobes/bases. Upper lobes are more coarse than previous.) Cardiovascular: Regular Rate, Rhythm, No Edema, No Murmur Gastrointestinal: soft Extremity: Pedal Edema (Right lower leg still has 1-2+ pitting edema from mid- mock down to foot. Left lower extremity has no edema. No pain with palpation. Mildly warm to touch. ) Neurologic/Psychiatric: Oriented x3 Skin: Normal Color, Diaphoresis Results Lab Laboratory Tests 08/10/22 04:16 08/10/22 16:45 08/11/22 04:29 Assessment/Plan Assessment/Plan 1 GRETEL ANTONIO MD Aug 11, 2022 10:56
--- NOTE | 2022-08-11 11:16 | Progress Note - Hospitalist ---
DE LA OMARCOS Jesusita 08/11/22 1116: Subjective HPI/CC On Admission Date Seen by Provider: Aug 11, 2022 Time Seen by Provider: 07:58 This is a 62 y/o male who presented to the ED today with SOB. He reports that over the past month he has had increasing dyspnea that is largely exertional with activities as minimal as standing. He says for the past week it has progressed more severely. He reports he sees Dr. Hutson and saw him about a month ago when these symptoms started and he gave him a low-dose prednisone in addition to his at-home inhalers but it does not seem to have helped that much. He also notes he has been recently gaining weight and has had new right lower leg/calf swelling and redness. He reports that he has very minor chest pain occasionally with breathing. He denies fever, chills, recent URI or other illnesses. He notes his BPs have been high recently but does not have a history of this. His history is significant for COPD and substance use disorder (opioids, alcohol) and says he has been clean for 4-5 years now. He has his own suboxone with him currently. He has a 51 pack-year former smoking history per records from PFTs in 2020. In 2017 he received a heart workup with Dr. Chicas including an Echo, Cath, and stress testing. He received PFTs in 2020 consistent with severe emphysema/COPD. Subjective/Events-last exam Patient seen at bedside. Sitting up eating breakfast. Says breathing is improved but says he hasn't been able to cough up the mucous he feels in his throat. He denies any pain/discomfort. He is still on Vapotherm. He's urinating without issue today and has not need straight cathed since yesterday. Started his scheduled inhalers for maintenance. Denies fever, chills, chest pain, palpitations, or racing heart. He denies pain in his extremities. No BMs since the morning of his admission. Focused Exam Lactate Level 08/09/22 06:40: Lactic Acid Level 7.64*H 08/09/22 08:35: Lactic Acid Level 1.16 Objective Exam Vital Signs Vital Signs Date Time Temp Pulse Resp B/P (MAP) Pulse Ox O2 Delivery O2 Flow Rate FiO2 08/11/22 10:00 94 19 137/86 (103) 94 NIV Bilevel 40.00 08/11/22 09:02 40 08/10/22 20:00 36.2 Capillary Refill : General Appearance: No Apparent Distress HEENT: PERRL/EOMI Neck: Full Range of Motion Respiratory: Crackles (Global coarse crackles.), Wheezing (Global expiratory wheezing more apparent today. Air movement is improved.) Cardiovascular: Regular Rate, Rhythm, No Gallop, No Murmur Gastrointestinal: Normal Bowel Sounds, Non Tender Back: Normal Inspection Extremity: Pedal Edema (Right lower leg has +1-2 pitting edema to the midshin with mild erythema. It is not painful to the touch. Left lower leg has trace edema. ) Neurologic/Psychiatric: Alert, Oriented x3 Skin: Normal Color, Warm/Dry Results/Procedures Lab Laboratory Tests 08/10/22 16:45 08/11/22 04:29 Patient resulted labs reviewed. Laboratory Tests Test 08/09/22 15:00 08/10/22 04:30 08/11/22 04:30 Blood Gas Puncture Site L RADIAL L RAD L RAD Blood Gas Patient Temperature 36.8 36.2 36.2 Arterial Blood pH 7.30 7.34 7.35 Arterial Blood Partial Pressure CO2 62 MMHG 53 MMHG 49 MMHG Arterial Blood Partial Pressure O2 186 MMHG 111 MMHG 107 MMHG Arterial Blood HCO3 30 MMOL/L 28 MMOL/L 27 MMOL/L Arterial Blood Total CO2 31.8 MMOL/L 29.8 MMOL/L 28.5 MMOL/L Arterial Blood Oxygen Saturation 100 % 100 % 99 % Arterial Blood Base Excess 3.9 MMOL/L 2.7 MMOL/L 1.8 MMOL/L Daniel Test YES-POS YES-POS YES-POS Blood Gas Ventilator Setting NO NO NO Blood Gas Inspired Oxygen 60% 50% 50% Imaging: Reviewed Imaging Films Radiology NAME: URMILA GORDON V MED REC#: [id number] PT STATUS: ADM IN : 1960 PHYSICIAN: NAKIA MENDOZA DO ADMIT DATE: 08/09/22/ICU Signed Date of Exam:08/10/22 CHEST 1 VIEW, AP/PA ONLY EXAMINATION: Chest 1 view HISTORY: COPD COMPARISON: 08/09/2022 FINDINGS: Right base airspace opacity has resolved and left base opacity is improved. There are small pleural effusions. No pneumothorax. Heart size is normal. IMPRESSION: 1. Improving bibasilar airspace opacities and small pleural effusions. Dictated by: Dictated on workstation # [id number] Dict: 08/10/2258 Trans: 08/10/221711 STUART [id number] Interpreted by: ARCENIO ORTIZ MD Electronically signed by: ARCENIO ORTIZ MD 08/10/22 1712 Assessment/Plan Assessment and Plan Assess & Plan/Chief Complaint Assessment: This is a 62 y/o male who presented with AHRF 2/2 to likely COPD exacerbation and was admitted to the ICU now on HD#2. AHRF Hypercapnea COPD exacerbation Elevated lactic acid Acute lower extremity swelling Hx of CAD Hx of HTN Hx of HLD AHRF Hypercapnea COPD exacerbation -Initially stabilized on BIPAP, now on vapotherm 35 LPM over 40%. -Coninuing IV solu-medrol 80mg q6hr IV -Continuing Montelukast 10 mg HS -CXR has improving bibasilar airpsace opacities compared to previous (08/10); XR today (08/11) appears largely unchanged, read pending -WBC 14.9 --> 11.8 --> 15.7 (08/11). Cefepime prophylaxis/exacerbation coverage deescalated to cefdinir BID plan for 5 days; afebrile, symptomatic improvement -Flu A/B, COVID panel negative. -Albuterol and Ipratropium scheduled/PRN -ABG upon ICU admit: 7.29/74/34/34 --> 7.34/53/111/28 --> 7.35/49/107/27 - improving acute respiratory acidosis, likely close to baseline CO2 given hx. --D-dimer borderline elevated. Echo to recheck hx of pulmonary artery hypertension and evaluate for increased pressures --> no change in pulm a. pressures, improved EF. Will hold off on CTA. -Previous PFTs: FEV1/FVC 0.36, DLCO significantly elevated in 2020 c/w COPD/emphysema. -eICU following; appreciate recs -Denies current smoking -On albuterol PRN, non-compliant with fluticasone/umeclidin/vilanter daily at home, 5mg PO prednisone for past month, guifenesin PRN -Started Fluticasone/salmeterol BID, umeclidinium inahler daily -Will schedule guifenesin -Will give IV dose of lasix to see if respiratory status further improves given CHF hx and edema. Acute Rt lower extremity swelling -Markedly larger diameter than left, warm to touch. No pain with palpation/squeeze -In setting of borderline d-dimer, unchanged pulmonary artery pressures and improvement will hold on further eval for PE/DVT. -Suspect component of PAD/CAD/CHF -Will give lasix today and monitor for any changes Elevated Lactic Acid - resolved -Elevated in setting of pO2 in 30s - likely hypoxia driven -Repeat is WNL Hx of CAD -Previously followed with Dr. Chicas; had been prescribed daily ASA, metoprolol, atorvastatin. -Med rec only showing atorvastatin -Consider FU with cardiology outpatient for further evaluation Hx of HTN -Will attempt to see if any outpatient treatment initiated -Pressures mildly elevated Hx of HLD -Resumed atorvastatin Hx of Opioid Use Disorder -Resumed patient's home Suboxone FEN/GI -Maintenance fluids DC'd; UOP mildly decreased, will see if responsive to lasix. -Replace electrolytes per ICU protocol -Regular diet as tolerated; SSI -Bowel regimen (senna/docusate/miralax/lactulose). DVT PPx: Lovenox, SCDs Dispo: Stable. Will transfer to step-down unit and continue O2 weaning as tolerated and work with PT. NAKIA MENDOZA DO 08/11/22 1143: Supervisory-Addendum Brief Verification & Attestation Participated in pt care: history, MDM, physical Personally performed: exam, history, MDM, supervision of care Care discussed with: Medical Student Procedures: n/a Results interpretation: Verified all documentation Verification and Attestation of Medical Student E/M Service A medical student performed and documented this service in my presence. I reviewed and verified all information documented by the medical student and made modifications to such information, when appropriate. I personally performed the physical exam and medical decision making. Nakia Mendoza, Aug 11, 2022,11:43 MARCOS DE LA O Aug 11, 2022 11:16 NAKIA MENDOZA DO Aug 11, 2022 11:43
--- NOTE | 2022-08-11 13:17 | Physical Therapy Progress Note ---
Therapy Progress Note This PT has attempted to see the patient twice for PT initial evaluation. This morning patient reports he doesn't feel like he is ready to. Attempted again at 1316 and patient politely refused, reporting his breathing is still not doing good. As we are talking his O2 sats are dropping to 85% with no activity. Will attempt evaluation again in the am if patient is able to participate. ARCENIO BELTRAN PT Aug 11, 2022 13:17
--- NOTE | 2022-08-11 14:40 | Diagnostic Imaging Report ---
Indication: COPD COMPARISON: 08/10/2022 TECHNIQUE: Single radiograph chest dated 08/12/2019 FINDINGS: The cardiac silhouette is within normal limits in size. No significant pulmonary vascular congestion. Low lung volumes with associated left greater than right bibasilar pulmonary opacities again noted. These opacities appear similar to the prior examination accounting for decreased lung volumes. Small left pleural effusion. No significant right pleural effusion. Scarring within the right upper lung is again seen. No pneumothorax. No acute osseous abnormality. IMPRESSION: Decreased lung volumes with essentially stable left greater than right bibasilar atelectasis and/or pneumonitis with associated tiny left pleural effusion. Additional stable chronic findings as above. Dictated by: Dictated on workstation # [id number]
[2022-08-11] MEDS: MONTELUKAST 10 MG (SINGULAIR) TAB PO SCH (20:10)
[2022-08-12] VITALS (8 sets, daily range): BP systolic 112–148; BP diastolic 75–102
[2022-08-12] MEDS: RT-IPRATROPIUM (ATROVENT) 0.5MG/2.5ML AMP IH SCH ×6 (02:35→22:26)
[2022-08-12] MEDS: RT-ALBUTEROL SULF 2.5 MG/3 ML PRE-MIX VIAL INH SCH ×6 (02:35→22:26)
[2022-08-12] MEDS: methylPREDNISolone 40 MG/ML (Solu-MEDROL) VIAL IV SCH ×4 (05:08→22:10)
[2022-08-12 05:12] LABS: BASOPHILS % (AUTO) 0 % (0-10); EOSINOPHILS % (AUTO) 0 % (0-10); HEMATOCRIT 41 % (40-54); HEMOGLOBIN 13.5 g/dL (13.3-17.7); LYMPHOCYTES # (AUTO) 0.3 10^3/uL (1.0-4.0); LYMPHOCYTES % (AUTO) 2 % (12-44); MEAN CORPUSCULAR HEMOGLOBIN 31 pg (25-34); MEAN CORPUSCULAR HGB CONC 33 g/dL (32-36); MEAN CORPUSCULAR VOLUME 95 fL (80-99); MEAN PLATELET VOLUME 9.6 fL (9.0-12.2); MONOCYTES # (AUTO) 0.4 10^3/uL (0.0-1.0); MONOCYTES % (AUTO) 3 % (0-12); NEUTROPHILS # (AUTO) 12.9 10^3/uL (1.8-7.8); NEUTROPHILS % (AUTO) 94 % (42-75); PLATELET COUNT 168 10^3/uL (130-400); WHITE BLOOD COUNT 13.7 10^3/uL (4.3-11.0)
[2022-08-12] MEDS: inSUlin ASPART (NovoLOG) 1 UNIT/0.01 ML (CHARGE PER UNIT) SC SCH ×4 (05:14→21:52)
[2022-08-12 05:29] LABS: ALBUMIN 3.6 GM/DL (3.2-4.5)
[2022-08-12 05:30] LABS: CALCIUM 9.6 MG/DL (8.5-10.1)
[2022-08-12 05:33] LABS: BILIRUBIN,TOTAL 0.3 MG/DL (0.1-1.0)
[2022-08-12 05:35] LABS: CREATININE SERUM 0.88 MG/DL (0.60-1.30); PHOSPHORUS 2.6 MG/DL (2.3-4.7)
[2022-08-12 05:38] LABS: MAGNESIUM 2.1 MG/DL (1.6-2.4)
[2022-08-12] MEDS: RT--FLUTICASONE/SALMETEROL 232-14 (AIRDUO RespiCLICK) IH SCH ×2 (07:15→19:22)
[2022-08-12] MEDS: UMECLIDINIUM BROMIDE (INCRUSE ELLIPTA) 7'S IH SCH (07:15)
[2022-08-12] MEDS ORDERED: RT-ALBUTEROL SULF 2.5 MG/3 ML PRE-MIX VIAL INH PRN (08:00)
[2022-08-12] MEDS ORDERED: RT-IPRATROPIUM (ATROVENT) 0.5MG/2.5ML AMP IH PRN (08:00)
[2022-08-12] MEDS: NICOTINE PATCH REMOVAL TP SCH (08:25)
[2022-08-12] MEDS: NICOTINE 14 MG (NICODERM) PATCH TD SCH (08:25)
[2022-08-12] MEDS: CEFDINIR 300 MG (OMNICEF) CAP PO SCH ×2 (08:26→21:52)
[2022-08-12] MEDS: FLUoxetine HCL 20 MG (PROzac) CAP PO SCH (08:26)
[2022-08-12] MEDS: [UNRECOGNIZED DRUG - OTHER] SL SCH (08:26)
[2022-08-12] MEDS: guaiFENesin (MUCINEX) 600 MG TAB PO SCH ×2 (08:28→21:52)
[2022-08-12] MEDS: SENNOSIDES 8.6 MG (SENOKOT) TAB PO SCH ×2 (08:35→21:00)
[2022-08-12] MEDS: DOCUSATE SODIUM 100 MG (COLACE) CAP PO SCH ×2 (08:35→21:00)
--- NOTE | 2022-08-12 09:01 | Progress Note - Hospitalist ---
MARCOS DE LA O 08/12/22 0901: Subjective HPI/CC On Admission This is a 62 y/o male who presented to the ED today with SOB. He reports that over the past month he has had increasing dyspnea that is largely exertional with activities as minimal as standing. He says for the past week it has progressed more severely. He reports he sees Dr. Hutson and saw him about a month ago when these symptoms started and he gave him a low-dose prednisone in addition to his at-home inhalers but it does not seem to have helped that much. He also notes he has been recently gaining weight and has had new right lower leg/calf swelling and redness. He reports that he has very minor chest pain occasionally with breathing. He denies fever, chills, recent URI or other illne sses. He notes his BPs have been high recently but does not have a history of this. His history is significant for COPD and substance use disorder (opioids, alcohol) and says he has been clean for 4-5 years now. He has his own suboxone with him currently. He has a 51 pack-year former smoking history per records from PFTs in 2020. In 2017 he received a heart workup with Dr. Chicas including an Echo, Cath, and stress testing. He received PFTs in 2020 consistent with severe emphysema/COPD. Subjective/Events-last exam Pt seen at bedside. He has continued to wean his O2 requirements since moving to Cardiac step-down. Still on vapotherm. Has yet to work with PT, refused yeste rday, said he wasn't feeling up to it. Is motivated to work with them today as he wants to be able to get out of bed as he's feeling like he will finally have a BM. No issues urinating yesterday. Eating and drinking without issue. His hands are very shaky during exam and he says this isn't usual for him - believes it to be because of all the albuterol he's been getting. He reports good response to restarting his Suboxone two days ago - usual symptoms when off it too long are nausea which he denies. Denying pain. Overall breathing better. During exam he desats to high 80s low 90s but is in no visible discomfort or distress. Will encourage more use of IS while in bed. Objective Exam Vital Signs Vital Signs Date Time Temp Pulse Resp B/P (MAP) Pulse Ox O2 Delivery O2 Flow Rate FiO2 08/12/22 11:05 36.0 90 20 148/101 (117) 93 Vapotherm 20.00 30.00 08/12/22 10:08 30 Capillary Refill : General Appearance: No Apparent Distress HEENT: PERRL/EOMI Neck: Full Range of Motion, Supple Respiratory: Crackles (Widespread crackles more apparent with expiration. ), Inspiration (Inspiratory breaths are much improved with clear lung sounds and good air movement. ), Wheezing (Still marked wheezing in all lung rayo with expiration. ) Cardiovascular: Regular Rate, Rhythm, No Murmur, Tachycardia Gastrointestinal: Normal Bowel Sounds, Non Tender, Soft Extremity: Pedal Edema (Right lower leg is still edematous 1-2+ pitting slightly higher than midshin. ), Swelling (Right leg is markedly larger than left and still feels warm to touch with erythema upto level of knee which is increased from previous exams. Left lower leg has no notable warmth/edema/erythema) Neurologic/Psychiatric: Alert, Oriented x3 Skin: Normal Color, Warm/Dry Results/Procedures Lab Laboratory Tests 08/12/22 04:57 Patient resulted labs reviewed. Imaging: Reviewed Imaging Films Radiology NAME: URMILA GORDON [facility] REC#: [id number] PT STATUS: ADM IN : 1960 PHYSICIAN: NAKIA MENDOZA DO ADMIT DATE: 08/09/22/ICU Signed Date of Exam:08/11/22 CHEST 1 VIEW, AP/PA ONLY Indication: COPD COMPARISON: 08/10/2022 TECHNIQUE: Single radiograph chest dated 08/12/2019 FINDINGS: The cardiac silhouette is within normal limits in size. No significant pulmonary vascular congestion. Low lung volumes with associated left greater than right bibasilar pulmonary opacities again noted. These opacities appear similar to the prior examination accounting for decreased lung volumes. Small left pleural effusion. No significant right pleural effusion. Scarring within the right upper lung is again seen. No pneumothorax. No acute osseous abnormality. IMPRESSION: Decreased lung volumes with essentially stable left greater than right bibasilar atelectasis and/or pneumonitis with associated tiny left pleural effusion. Additional stable chronic findings as above. Dictated by: Dictated on workstation # [id number] Dict: 08/11/22 1346 Trans: 08/11/22 [address] [facility], [place] [id number] Interpreted by: SADIA HAMEED MD Electronically signed by: SADIA HAMEED MD 08/11/22 5802 Assessment/Plan Assessment and Plan Assess & Plan/Chief Complaint Assessment: This is a 62 y/o male who presented with AHRF 2/2 to likely COPD exacerbation and was admitted to the ICU now on HD#3. AHRF Hypercapnea COPD exacerbation Elevated lactic acid Acute lower extremity swelling Hx of CAD Hx of HTN Hx of HLD AHRF Hypercapnea COPD exacerbation -Initially stabilized on BIPAP, now on vapotherm 20 LPM over 30%. -Coninuing IV solu-medrol 80mg q6hr IV -Continuing Montelukast 10 mg HS -CXR has improving bibasilar airpsace opacities compared to previous (08/10); Last XR (08/11) appears largely unchanged -WBC 14.9 --> 11.8 --> 15.7 --> 13.7 (08/12). Cefepime prophylaxis/exacerbation coverage deescalated to cefdinir on 08/11 BID plan for 5 days; afebrile, symptomatic improvement -Flu A/B, COVID panel negative. -Albuterol and Ipratropium scheduled/PRN -ABG upon ICU admit: 7.29/74/34/34 --> 7.34/53/111/28 --> 7.35/49/107/27 (08/11) - improving acute respiratory acidosis, likely close to baseline CO2 given hx. --D-dimer borderline elevated. Echo to recheck hx of pulmonary artery hypertension and evaluate for increased pressures --> no change in pulm a. pressures, improved EF. Will hold off on CTA. -Previous PFTs: FEV1/FVC 0.36, DLCO significantly elevated in 2020 c/w COPD/emphysema. -eICU following; appreciate recs -Denies current smoking -On albuterol PRN, non-compliant with fluticasone/umeclidin/vilanter daily at home, 5mg PO prednisone for past month, guifenesin PRN -Started Fluticasone/salmeterol BID, umeclidinium inahler daily -Scheduled guifenesin -UOP increased with a dose of lasix, kidneys tolerated and O2 requirements improved, will redose Acute Rt lower extremity swelling -Markedly larger diameter than left, warm to touch and red. No pain with palpation/squeeze but appears unchanged after lasix and -In setting of borderline d-dimer, unchanged pulmonary artery pressures and improvement will hold on further eval for PE/DVT. -Suspect component of PAD/CAD/CHF -Will get Lower extremity doppler to evaluate for DVT/PAD. -Will give lasix today and monitor for any changes Elevated Lactic Acid - resolved -Elevated in setting of pO2 in 30s - likely hypoxia driven -Repeat is WNL Hx of CAD -Previously followed with Dr. Chicas; had been prescribed daily ASA, metoprolol, atorvastatin. -Med rec only showing atorvastatin -Consider FU with cardiology outpatient for further evaluation Hx of HTN -Will attempt to see if any outpatient treatment initiated -Pressures mildly elevated at times -Consider adding ACEi/ARB Hx of HLD -Resumed atorvastatin Hx of Opioid Use Disorder -Resumed patient's home Suboxone FEN/GI -Maintenance fluids DC'd; UOP responded favorably to lasix; consider repeating lasix. -Replace electrolytes PRN, WNL today -Regular diet as tolerated; SSI -Bowel regimen (senna/docusate/miralax/lactulose). Add protonix for ulcer ppx. DVT PPx: Lovenox, SCDs Dispo: Stable. Continue cares on step down as still needing PT evaluation and desatting with minimal exertion. Doppler of lower extremities today. NAKIA MENDOZA DO 08/13/22 0506: Supervisory-Addendum Brief Verification & Attestation Participated in pt care: history, MDM, physical Personally performed: exam, history, MDM, supervision of care Care discussed with: Medical Student Procedures: n/a Results interpretation: Verified all documentation Verification and Attestation of Medical Student E/M Service A medical student performed and documented this service in my presence. I reviewed and verified all information documented by the medical student and made modifications to such information, when appropriate. I personally performed the physical exam and medical decision making. Nakia Mendoza, Aug 13, 2022,05:06 MARCOS DE LA O Aug 12, 2022 09:01 NAKIA MENDOZA DO Aug 13, 2022 05:06
--- NOTE | 2022-08-12 10:09 | Physical Therapy Evaluation ---
PT Evaluation-General Medical Diagnosis Admission Date Aug 09, 2022 at 09:24 Medical Diagnosis: acute respiratory failure Onset Date: Aug 09, 2022 Therapy Diagnosis Therapy Diagnosis: debility/decreased pulmonary function Height/Weight Height (Feet): 5 Height (Inches): 8.00 Weight (Pounds): 135 Weight (Ounces): 0.0 Precautions Precautions/Isolations: Fall Prevention, Standard Precautions Referral Physician: willian Reason for Referral: Evaluation/Treatment Medical History Pertinent Medical History: COPD, HTN Current History ER secondary to SOA Reviewed History: Yes Prior Prior Level of Function SCALE: Activities may be completed with or without assistive devices. 8-Kkojbwsehr-zcvmspv completes the activity by him/herself with no assistance from a helper. 5-Set-up or Clean-up Assistance-helper sets up or cleans up; patient completes a ctivity. [place] assists only prior to or following the activity. 4-Supervision or Touching Assistance-helper provides verbal cues and/or touching/steadying and/or contact guard assistance as patient completes activity. Assistance may be provided throughout the activity or intermittently. 3-Partial/Moderate Assistance-helper does LESS THAN HALF the effort. Geraldine lifts, holds or supports trunk or limbs, but provides less than half the effort. 2-Substantial/Maximal Assistance-helper does MORE THAN HALF the effort. Geraldine lifts or holds trunk or limbs and provides more than half the effort. 8-Mozpqvzyb-wvekyp does ALL the effort. Patient does none of the effort to complete the activity. Or, the assistance of 2 or more helpers is required for the patient to complete the activity. If activity was not attempted, code reason: 7-Patient Refused. 9-Not Applicable-not attempted and the patient did not perform the activity before the current illness, exacerbation or injury. 10-Not Attempted due to Environmental Limitations-(lack of equipment, weather restraints, etc.). 88-Not Attempted due to Medical Conditions or Safety Concerns. Bed Mobility: 6 Transfers (B,C,W/C): 6 Gait: 6 Indoor Mobility (Ambulation): Independent Prior Devices Use: None PT Evaluation-Current Subjective Patient agrees to PT. Objective Patient Orientation: Normal For Age Attachments: Oxygen (vapotherm) ROM/Strength ROM Lower Extremities bilateral LE WFL Strength Lower Extremities 4-/5 grossly bilateral LE all planes Integumentary/Posture Bowel Incontinence: No Bladder Incontinence: No Posture WFL Neuromuscular (Tone, Coordination, Reflexes) grossly intact Sensory Vision: Functional Hearing: Functional Transfers Lying to Sitting/Side of Bed(Q: 6 Sit to Stand (QC): 4 Chair/Dvd-jp-Cofvc Xfer(QC): 4 Gait Mode of Locomotion: Walk Anticipated Mode of Locomotion: Walk Distance: 5 steps Gait Assistive Device: None Balance Sitting Static: Normal Sitting Dynamic: Normal Standing Static: Fair Standing Dynamic: Fair Assessment/Needs Patient will benefit from skilled PT to address pulmonary function with functional mobility. Rehab Potential: Guarded PT Fdc Goals Fdc Goals PT Product Coordinator Goals Time Frame: Aug 28, 2022 Roll Left & Right (QC): 6 Sit to Lying (QC): 6 Lying-Sitting on Side/Bed(QC): 6 Sit to Stand (QC): 6 Chair/Hqy-yb-Tsnur Xfer(QC): 6 Toilet Transfer (QC): 6 Walk 10 feet (QC): 6 Walk 50ft with 2 Turns (QC): 6 Walk 150 ft (QC): 6 PT Plan Problem List Problem List: Activity Tolerance, Functional Strength, Safety, Balance, Gait, Transfer, Bed Mobility Treatment/Plan Treatment Plan: Continue Plan of Care Treatment Plan: Bed Mobility, Education, Functional Activity Omaira, Functional Strength, Gait, Safety, Therapeutic Exercise, Transfers Treatment Duration: Aug 28, 2022 Frequency: 6 times per week Estimated Hrs Per Day: .25 hour per day Patient and/or Family Agrees t: Yes Time Time In: 822 Time Out: 833 DATE: Aug 12, 2022 Total Billed Treatment Time: 11 Total Billed Treatment 1 visit [facility] 11 min WILLIAM CUMMINGS PT Aug 12, 2022 10:09
[2022-08-12] MEDS: ENOXAPARIN 40 MG/0.4 ML (LOVENOX) SYR SC SCH (11:00)
[2022-08-12] MEDS ORDERED: FUROSEMIDE 40 MG/4 ML INJ (LASIX) IVP NR (12:00)
--- NOTE | 2022-08-12 17:15 | Diagnostic Imaging Report ---
EXAMINATION: US Right Lower Extremity Venous Duplex. TECHNIQUE: Multiple real-time grayscale images were obtained over the right lower extremity in various projections. Additional spectral analysis and color Doppler duplex images were also obtained. HISTORY: Right lower extremity pain and swelling. COMPARISON: None available. FINDINGS: The right common femoral vein, deep femoral vein, superficial femoral vein and popliteal vein are patent with normal bills scale and doppler appearance. There is normal respiratory variation and augmentation. IMPRESSION: 1. No DVT of the right lower extremity. Dictated by: Dictated on workstation # [id number]
[2022-08-12] MEDS: LORazepam 0.5 MG (ATIVAN) TABLET PO PRN (21:52)
[2022-08-12] MEDS: MONTELUKAST 10 MG (SINGULAIR) TAB PO SCH (21:53)
[2022-08-13] VITALS (8 sets, daily range): BP systolic 129–177; BP diastolic 85–117
[2022-08-13] MEDS: RT-IPRATROPIUM (ATROVENT) 0.5MG/2.5ML AMP IH SCH ×6 (02:19→21:37)
[2022-08-13] MEDS: RT-ALBUTEROL SULF 2.5 MG/3 ML PRE-MIX VIAL INH SCH ×6 (02:19→21:37)
[2022-08-13 05:39] LABS: BASOPHILS % (AUTO) 0 % (0-10); EOSINOPHILS % (AUTO) 0 % (0-10); HEMATOCRIT 40 % (40-54); HEMOGLOBIN 13.3 g/dL (13.3-17.7); LYMPHOCYTES # (AUTO) 0.3 10^3/uL (1.0-4.0); LYMPHOCYTES % (AUTO) 3 % (12-44); MEAN CORPUSCULAR HEMOGLOBIN 32 pg (25-34); MEAN CORPUSCULAR HGB CONC 34 g/dL (32-36); MEAN CORPUSCULAR VOLUME 95 fL (80-99); MEAN PLATELET VOLUME 9.6 fL (9.0-12.2); MONOCYTES # (AUTO) 0.4 10^3/uL (0.0-1.0); MONOCYTES % (AUTO) 4 % (0-12); NEUTROPHILS # (AUTO) 8.6 10^3/uL (1.8-7.8); NEUTROPHILS % (AUTO) 91 % (42-75); PLATELET COUNT 159 10^3/uL (130-400); WHITE BLOOD COUNT 9.4 10^3/uL (4.3-11.0)
[2022-08-13] MEDS: methylPREDNISolone 40 MG/ML (Solu-MEDROL) VIAL IV SCH ×4 (05:54→22:27)
[2022-08-13 06:02] LABS: ALBUMIN 3.3 GM/DL (3.2-4.5); BILIRUBIN,TOTAL 0.4 MG/DL (0.1-1.0); CALCIUM 9.4 MG/DL (8.5-10.1); CREATININE SERUM 0.79 MG/DL (0.60-1.30); MAGNESIUM 2.2 MG/DL (1.6-2.4); PHOSPHORUS 2.4 MG/DL (2.3-4.7); POTASSIUM 3.9 MMOL/L (3.6-5.0); TOTAL PROTEIN 6.3 GM/DL (6.4-8.2)
[2022-08-13] MEDS: inSUlin ASPART (NovoLOG) 1 UNIT/0.01 ML (CHARGE PER UNIT) SC SCH ×4 (06:17→21:45)
[2022-08-13] MEDS: RT--FLUTICASONE/SALMETEROL 232-14 (AIRDUO RespiCLICK) IH SCH ×2 (07:36→21:38)
[2022-08-13] MEDS: UMECLIDINIUM BROMIDE (INCRUSE ELLIPTA) 7'S IH SCH (07:36)
[2022-08-13] MEDS: guaiFENesin (MUCINEX) 600 MG TAB PO SCH ×2 (08:02→20:00)
[2022-08-13] MEDS: DOCUSATE SODIUM 100 MG (COLACE) CAP PO SCH ×2 (08:02→20:01)
[2022-08-13] MEDS: FLUoxetine HCL 20 MG (PROzac) CAP PO SCH (08:02)
[2022-08-13] MEDS: SENNOSIDES 8.6 MG (SENOKOT) TAB PO SCH ×2 (08:02→20:00)
[2022-08-13] MEDS: CEFDINIR 300 MG (OMNICEF) CAP PO SCH ×2 (08:02→20:00)
[2022-08-13] MEDS: LORazepam 0.5 MG (ATIVAN) TABLET PO PRN ×2 (08:02→22:24)
[2022-08-13] MEDS: [UNRECOGNIZED DRUG - OTHER] SL SCH (08:11)
[2022-08-13] MEDS: NICOTINE PATCH REMOVAL TP SCH (08:13)
[2022-08-13] MEDS: NICOTINE 14 MG (NICODERM) PATCH TD SCH (08:14)
--- NOTE | 2022-08-13 09:18 | Progress Note - Hospitalist ---
JAYLYNMARCOS Jesusita 08/13/22 0918: Subjective HPI/CC On Admission Date Seen by Provider: Aug 13, 2022 Time Seen by Provider: 08:30 This is a 62 y/o male who presented to the ED today with SOB. He reports that over the past month he has had increasing dyspnea that is largely exertional with activities as minimal as standing. He says for the past week it has progressed more severely. He reports he sees Dr. Hutson and saw him about a month ago when these symptoms started and he gave him a low-dose prednisone in addition to his at-home inhalers but it does not seem to have helped that much. He also notes he has been recently gaining weight and has had new right lower leg/calf swelling and redness. He reports that he has very minor chest pain occasionally with breathing. He denies fever, chills, recent URI or other illne sses. He notes his BPs have been high recently but does not have a history of this. His history is significant for COPD and substance use disorder (opioids, alcohol) and says he has been clean for 4-5 years now. He has his own suboxone with him currently. He has a 51 pack-year former smoking history per records from PFTs in 2020. He says he has not smoked since of 2021. In 2017 he received a heart workup with Dr. Chicas including an Echo, Cath, and stress testing. He received PFTs in 2020 consistent with severe emphysema/COPD. Subjective/Events-last exam Patient is seen at bedside. He is sitting up eating breakfast. He is on nasal cannula this morning on much less O2. He was out of bed with PT yesterday but experienced a "panic attack" and felt he couldn't catch his breath and he is worried this will happen again when he tries to walk. His O2 sats remain >95% during conversation and during exam maneuvers which is much improved from previous. His nurse reports he still seems to need to catch his breath between words when talking and is concerned that he will continue to have issues ambulating. He is urinating without issue and had a BM yesterday. Denies fever, chills, N/V, CP, SOB, or palpitations. He denies lower extremity pain but believes his swelling is better. He notes that his right leg is one he often hangs over the edge of her bed because "it's hard to explain but it seems more comfortable" when he does this. Objective Exam Vital Signs Vital Signs Date Time Temp Pulse Resp B/P (MAP) Pulse Ox O2 Delivery O2 Flow Rate FiO2 08/13/22 08:00 36.1 95 20 164/91 (115) 97 Nasal Cannula 2.00 08/12/22 14:40 30 Capillary Refill : General Appearance: No Apparent Distress HEENT: PERRL/EOMI Neck: Normal Inspection, Non Tender, Supple Respiratory: Expiration (Expiratory coarse crackles throughout. No wheezing is discernible. ), Inspiration (Clear in all rayo.) Cardiovascular: Regular Rate, Rhythm, No Murmur Gastrointestinal: Normal Bowel Sounds, Non Tender Back: Normal Inspection Extremity: Pedal Edema (Right lower extremity edema is improved - trace to +1 pitting now, less warm to touch. Left leg has minimal edema. ) Neurologic/Psychiatric: Alert, Oriented x3 Skin: Normal Color, Warm/Dry Results/Procedures Lab Laboratory Tests 08/13/22 05:20 Patient resulted labs reviewed. Imaging: Reviewed Imaging Films Radiology No new radiology. Assessment/Plan Assessment and Plan Assess & Plan/Chief Complaint Assessment: This is a 62 y/o male who presented with AHRF 2/2 to likely COPD exacerbation and was admitted to the ICU now on HD#4. AHRF Hypercapnea COPD exacerbation Elevated lactic acid Acute lower extremity swelling Hx of CAD Hx of HTN Hx of HLD AHRF - resolved Hypercapnea COPD exacerbation -Initially stabilized on BIPAP, then vapotherm, now on 2-3 LPM N.C. -Coninuing IV solu-medrol 80mg q6hr IV -Continuing Montelukast 10 mg HS -CXR has improving bibasilar airpsace opacities compared to previous (08/10); Last XR (08/11) appears largely unchanged -WBC 14.9 --> 11.8 --> 15.7 --> 13.7 --> 9.4 (08/13). Cefepime prophylaxis/exacerbation coverage deescalated to cefdinir on 08/11 BID plan for 5 days; afebrile, symptomatic improvement -Flu A/B, COVID panel negative. -Albuterol and Ipratropium scheduled/PRN -ABG upon ICU admit: 7.29/74/34/34 --> 7.34/53/111/28 --> 7.35/49/107/27 (08/11) - improving acute respiratory acidosis, likely close to baseline CO2 given hx. --D-dimer borderline elevated. Echo to recheck hx of pulmonary artery hypertension and evaluate for increased pressures --> no change in pulm a. pressures, improved EF. Will hold off on CTA. -Previous PFTs: FEV1/FVC 0.36, DLCO significantly elevated in 2020 c/w COPD/emphysema. -Denies current smoking -On albuterol PRN, non-compliant with fluticasone/umeclidin/vilanter daily at home, 5mg PO prednisone for past month, guifenesin PRN -Started Fluticasone/salmeterol BID, umeclidinium inahler daily -Scheduled guifenesin -UOP increased with a dose of lasix, kidneys tolerated and O2 requirements vastly improved, will redose; is on lasix at home -Patient is due for FU with orthodontist in [place] (Dr. Ulrich) Acute Rt lower extremity swelling -Doppler U/S negative for DVT (08/12) -Vast improvement today on exam s/p second dose of lasix. -Suspected mixed component of PAD given history of dangling leg over bed with mix of CHF -Will continue lasix today and monitor for any changes Elevated Lactic Acid - resolved -Elevated in setting of pO2 in 30s - likely hypoxia driven -Repeat is WNL Hx of CAD -Previously followed with Dr. Chicas; had been prescribed daily ASA, metoprolol, atorvastatin. -Med rec only showing atorvastatin -Consider FU with cardiology outpatient for further evaluation Hx of HTN -Will attempt to see if any outpatient treatment initiated -Pressures mildly elevated at times -Consider adding ACEi/ARB Hx of HLD -Resumed atorvastatin Hx of Opioid Use Disorder -Resumed patient's home Suboxone FEN/GI -Maintenance fluids DC'd; UOP responded favorably to lasix; -Replace electrolytes PRN, WNL today -Regular diet as tolerated; SSI -Bowel regimen (senna/docusate/miralax/lactulose). Add protonix for ulcer ppx. DVT PPx: Lovenox, SCDs Dispo: Stable. Will transfer to the floor and continue work with PT. Consider inpatient rehab given high amount of deconditioning NAKIA MENDOZA DO 08/14/22 0607: Supervisory-Addendum Brief Verification & Attestation Participated in pt care: history, MDM, physical Personally performed: exam, history, MDM, supervision of care Care discussed with: Medical Student Procedures: n/a Results interpretation: Verified all documentation Verification and Attestation of Medical Student E/M Service A medical student performed and documented this service in my presence. I reviewed and verified all information documented by the medical student and made modifications to such information, when appropriate. I personally performed the physical exam and medical decision making. Nakia Mendoza, Aug 14, 2022,06:07 MARCOS DE LA O Aug 13, 2022 09:18 NAKIA MENDOZA DO Aug 14, 2022 06:07
[2022-08-13] MEDS: ENOXAPARIN 40 MG/0.4 ML (LOVENOX) SYR SC SCH (11:12)
--- NOTE | 2022-08-13 11:37 | Physical Therapy Daily Note ---
PT Daily Note-Current Subjective Patient reluctantly agrees to up to recliner only. Currently receiving breathing treatment from RT. Pain Section J - Health Conditions 1. Rarely or not at all 2. Occasionally 3. Frequently 4. Almost constantly 8. Unable to answer Pain Effect on Sleep: 1 Pain Interference with Therapy: 1 Pain Interference w/Day-to-Day: 1 Mental Status Attachments: Oxygen Transfers SCALE: Activities may be completed with or without assistive devices. 2-Ivsrsmljoj-tvqjakk completes the activity by him/herself with no assistance from a helper. 5-Set-up or Clean-up Assistance-helper sets up or cleans up; patient completes activity. [place] assists only prior to or following the activity. 4-Supervision or Touching Assistance-helper provides verbal cues and/or touching/steadying and/or contact guard assistance as patient completes activity. Assistance may be provided throughout the activity or intermittently. 3-Partial/Moderate Assistance-helper does LESS THAN HALF the effort. [place] lifts, holds or supports trunk or limbs, but provides less than half the effort. 2-Substantial/Maximal Assistance-helper does MORE THAN HALF the effort. [place] lifts or holds trunk or limbs and provides more than half the effort. 9-Cyqkryxno-rfurgx does ALL the effort. Patient does none of the effort to complete the activity. Or, the assistance of 2 or more helpers is required for the patient to complete the activity. If activity was not attempted, code reason: 7-Patient Refused. 9-Not Applicable-not attempted and the patient did not perform the activity before the current illness, exacerbation or injury. 10-Not Attempted due to Environmental Limitations-(lack of equipment, weather restraints, etc.). 88-Not Attempted due to Medical Conditions or Safety Concerns. Lying to Sitting/Side of Bed(Q: 6 Sit to Stand (QC): 4 Chair/Yvm-un-Mkvcx Xfer(QC): 4 Assessment Patient requires time to complete minimal tasks. Patient up in recliner with noted SOA and patient reports increase in anxiety with any activity. Patient ceased treatment. PT Food Counter Attendant Goals Alf Goals PT Food Counter Attendant Goals Time Frame: Aug 28, 2022 Roll Left & Right (QC): 6 Sit to Lying (QC): 6 Lying-Sitting on Side/Bed(QC): 6 Sit to Stand (QC): 6 Chair/Fye-za-Axrmw Xfer(QC): 6 Toilet Transfer (QC): 6 Walk 10 feet (QC): 6 Walk 50ft with 2 Turns (QC): 6 Walk 150 ft (QC): 6 PT Plan Treatment/Plan Treatment Plan: Continue Plan of Care Treatment Plan: Bed Mobility, Education, Functional Activity Omaira, Functional Strength, Gait, Safety, Therapeutic Exercise, Transfers Treatment Duration: Aug 28, 2022 Frequency: 6 times per week Estimated Hrs Per Day: .25 hour per day Patient and/or Family Agrees t: Yes Time Time In: 1122 Time Out: 1131 DATE: Aug 13, 2022 Total Billed Treatment Time: 9 Total Billed Treatment 1 visit [facility] 9 min WILLIAM CUMMINGS PT Aug 13, 2022 11:37
--- NOTE | 2022-08-13 15:02 | Occupational Therapy Eval ---
OT Evaluation-General/PLF Medical Diagnosis Admission Date Aug 09, 2022 at 09:24 Medical Diagnosis: acute respiratory failure Onset Date: Aug 09, 2022 Therapy Diagnosis Therapy Diagnosis: weakness, SOA Height/Weight Height (Feet): 5 Height (Inches): 8.00 Weight (Pounds): 135 Weight (Ounces): 0.0 Precautions Precautions/Isolations: Fall Prevention, Standard Precautions Weight Bear Status Weight Bearing Restriction: Full Weight Bearing Referral Physician: willian Referral Reason: Activity Tolerance, Self Care, Evaluation/Treatment Medical History Pertinent Medical History: COPD, HTN Current History Admission through ER w/ progressive SOA Reviewed History: Yes Social History Home: Single Level Current Living Status: 30hr/wk CG 30 hours/week in home care w/ HH nurse ADL-Prior Level of Function SCALE: Activities may be completed with or without assistive devices. 7-Cnxxvydnkr-qkgmurv completes the activity by him/herself with no assistance from a helper. 5-Set-up or Clean-up Assistance-helper sets up or cleans up; patient completes activity. [place] assists only prior to or following the activity. 4-Supervision or Touching Assistance-helper provides verbal cues and/or touching/steadying and/or contact guard assistance as patient completes activity. Assistance may be provided throughout the activity or intermittently. 3-Partial/Moderate Assistance-helper does LESS THAN HALF the effort. [place] lifts, holds or supports trunk or limbs, but provides less than half the effort. 2-Substantial/Maximal Assistance-helper does MORE THAN HALF the effort. [place] lifts or holds trunk or limbs and provides more than half the effort. 4-Kvfggbkge-jkuqjs does ALL the effort. Patient does none of the effort to complete the activity. Or, the assistance of 2 or more helpers is required for the patient to complete the activity. If activity was not attempted, code reason: 7-Patient Refused. 9-Not Applicable-not attempted and the patient did not perform the activity before the current illness, exacerbation or injury. 10-Not Attempted due to Environmental Limitations-(lack of equipment, weather restraints, etc.). 88-Not Attempted due to Medical Conditions or Safety Concerns. Self Care: Needed Some Help Functional Cognition: Needed Some Help Drive Self: No OT Current Status Subjective Agreeable to OT evaluation as long as near the bed/chair Mental Status/Objective Patient Orientation: Person, Place, Time, Situation Attachments: Oxygen (3 Lt, NC) Current Glasses/Contacts: Yes Upper Extremity ROM BUE ROM WFLS Upper Extremity Strength Fatigues during MMT an drest periods required during alternating BUEs. 02 remains greater than 935 duration of MMT. Grossly +3/5 ADL-Treatment Eating (QC): 5 (eats slow d/t SOA) Oral Hygiene (QC): 4 Shower/Bathe Self (QC): 88 Upper Body Dressing (QC): 3 Lower Body Dressing (QC): 3 (Patient stands less than 30 seconds before returning to recliner seat.) On/Off Footwear (QC): 7 (refused) Toileting Hygiene (QC): 3 Other Treatments Pursed lip breathing exercises Education OT Patient Education: Energy conservation, Modified ADL techniques, Progress toward Goal/Update tx plan, Purpose of tx/functional activities, Reviewed precautions, Rehab process, Safety issues, Transfer techniques, Use of adapted equipment Teaching Recipient: Patient Teaching Methods: Demonstration, Discussion Response to Teaching: Reinforcement Needed OT Group Home Goals Group Home Goals Eating (QC): 6 Oral Hygiene (QC): 5 Toileting Hygiene (QC): 4 Shower/Bathe Self (QC): 4 Upper Body Dressing (QC): 4 Lower Body Dressing (QC): 4 On/Off Footwear (QC): 4 1=Demonstrate adherence to instructed precautions during ADL tasks. 2=Patient will verbalize/demonstrate understanding of assistive devices/modifications for ADL. 3=Patient will improve strength/tolerance for activity to enable patient to perform ADL's. OT Education/Plan Problem List/Assessment Assessment: Decreased Activ Tolerance, Decreased UE Strength, Impaired Coordination, Impaired Self-Care Skills Discharge Recommendations Plan/Recommendations: Continue POC Therapy Discharge Recommendati: Post Acute OT Treatment Plan/Plan of Care Treatment,Training & Education: Yes Patient would benefit from OT for education, treatment and training to promote independence in ADL's, mobility, safety and/or upper extremity function for ADL's. Plan of Care: ADL Retraining, Functional Mobility, Group Exercise/Act as Ind, UE Funct Exercise/Act Treatment Duration: Aug 21, 2022 Frequency: 3 times per week (3-5 times per week) Estimated Hrs Per Day: .25 hour per day Agreement: Yes Rehab Potential: Guarded Time Start Time: 14:10 Stop Time: 14:23 DATE: Aug 13, 2022 Total Time Billed (hr/min): 13 Billed Treatment Time EVM 13 min ADARSH GARCIA OT Aug 13, 2022 15:02
[2022-08-13] MEDS: MONTELUKAST 10 MG (SINGULAIR) TAB PO SCH (20:00)
[2022-08-13] MEDS ORDERED: amLODIPine 5 MG (NORVASC) TAB PO ONE (20:45)
[2022-08-13] MEDS ORDERED: cloNIDine 0.1 MG (CATAPRES) TAB PO PRN (20:45)
[2022-08-14] MEDS: RT-ALBUTEROL SULF 2.5 MG/3 ML PRE-MIX VIAL INH SCH ×6 (02:17→22:51)
[2022-08-14] MEDS: RT-IPRATROPIUM (ATROVENT) 0.5MG/2.5ML AMP IH SCH ×6 (02:17→22:51)
[2022-08-14 03:25] VITALS: BP 130/72
[2022-08-14] MEDS: methylPREDNISolone 40 MG/ML (Solu-MEDROL) VIAL IV SCH ×2 (04:35→19:40)
[2022-08-14] MEDS: inSUlin ASPART (NovoLOG) 1 UNIT/0.01 ML (CHARGE PER UNIT) SC SCH ×4 (05:45→19:55)
[2022-08-14 05:56] LABS: BASOPHILS % (AUTO) 0 % (0-10); EOSINOPHILS % (AUTO) 0 % (0-10); HEMATOCRIT 40 % (40-54); HEMOGLOBIN 13.3 g/dL (13.3-17.7); LYMPHOCYTES # (AUTO) 0.3 10^3/uL (1.0-4.0); LYMPHOCYTES % (AUTO) 3 % (12-44); MEAN CORPUSCULAR HEMOGLOBIN 32 pg (25-34); MEAN CORPUSCULAR HGB CONC 33 g/dL (32-36); MEAN CORPUSCULAR VOLUME 96 fL (80-99); MEAN PLATELET VOLUME 9.5 fL (9.0-12.2); MONOCYTES # (AUTO) 0.3 10^3/uL (0.0-1.0); MONOCYTES % (AUTO) 3 % (0-12); NEUTROPHILS # (AUTO) 9.4 10^3/uL (1.8-7.8); NEUTROPHILS % (AUTO) 92 % (42-75); PLATELET COUNT 148 10^3/uL (130-400); WHITE BLOOD COUNT 10.3 10^3/uL (4.3-11.0)
[2022-08-14 06:10] LABS: ALBUMIN 3.3 GM/DL (3.2-4.5)
[2022-08-14 06:11] LABS: POTASSIUM 4.2 MMOL/L (3.6-5.0)
[2022-08-14 06:12] LABS: CALCIUM 9.1 MG/DL (8.5-10.1)
[2022-08-14 06:13] LABS: TOTAL PROTEIN 6.2 GM/DL (6.4-8.2)
[2022-08-14 06:15] LABS: BILIRUBIN,TOTAL 0.4 MG/DL (0.1-1.0)
[2022-08-14 06:17] LABS: CREATININE SERUM 0.74 MG/DL (0.60-1.30)
[2022-08-14 06:19] LABS: MAGNESIUM 2.2 MG/DL (1.6-2.4)
[2022-08-14] MEDS: RT--FLUTICASONE/SALMETEROL 232-14 (AIRDUO RespiCLICK) IH SCH ×2 (06:54→19:08)
[2022-08-14] MEDS: UMECLIDINIUM BROMIDE (INCRUSE ELLIPTA) 7'S IH SCH (06:54)
[2022-08-14 07:36] VITALS: BP 150/84
[2022-08-14] MEDS: NICOTINE 14 MG (NICODERM) PATCH TD SCH (08:16)
[2022-08-14] MEDS: guaiFENesin (MUCINEX) 600 MG TAB PO SCH ×2 (08:16→19:41)
[2022-08-14] MEDS: amLODIPine 5 MG (NORVASC) TAB PO SCH (08:16)
[2022-08-14] MEDS: SENNOSIDES 8.6 MG (SENOKOT) TAB PO SCH ×2 (08:16→19:41)
[2022-08-14] MEDS: FLUoxetine HCL 20 MG (PROzac) CAP PO SCH (08:16)
[2022-08-14] MEDS: DOCUSATE SODIUM 100 MG (COLACE) CAP PO SCH ×2 (08:16→19:41)
[2022-08-14] MEDS: CEFDINIR 300 MG (OMNICEF) CAP PO SCH ×2 (08:16→19:41)
[2022-08-14] MEDS: NICOTINE PATCH REMOVAL TP SCH (08:20)
--- NOTE | 2022-08-14 08:40 | Progress Note - Hospitalist ---
Subjective HPI/CC On Admission Date Seen by Provider: Aug 14, 2022 Time Seen by Provider: 11:00 This is a 62 y/o male who presented to the ED today with SOB. He reports that over the past month he has had increasing dyspnea that is largely exertional with activities as minimal as standing. He says for the past week it has progressed more severely. He reports he sees Dr. Hutson and saw him about a month ago when these symptoms started and he gave him a low-dose prednisone in addition to his at-home inhalers but it does not seem to have helped that much. He also notes he has been recently gaining weight and has had new right lower leg/calf swelling and redness. He reports that he has very minor chest pain occasionally with breathing. He denies fever, chills, recent URI or other illnesses. He notes his BPs have been high recently but does not have a history of this. His history is significant for COPD and substance use disorder (opioids, alcohol) and says he has been clean for 4-5 years now. He has his own suboxone with him currently. He has a 51 pack-year former smoking history per records from PFTs in 2020. He says he has not smoked since 2021. In 2017 he received a heart workup with Dr. Chicas including an Echo, Cath, and stress testing. He received PFTs in 2020 consistent with severe emphysema/COPD. Subjective/Events-last exam Improved overall Very severe COPD Remains dyspneic during conversation No pain reported Review of Systems General: Fatigue, Malaise Pulmonary: Dyspnea Objective Exam Vital Signs Vital Signs Date Time Temp Pulse Resp B/P (MAP) Pulse Ox O2 Delivery O2 Flow Rate FiO2 08/15/22 03:49 36.7 70 16 142/86 (104) 98 NIV Bilevel 08/15/22 03:33 40.00 08/13/22 20:00 Capillary Refill : General Appearance: No Apparent Distress, WD/WN, Chronically ill Respiratory: No Respiratory Distress, Accessory Muscle Use, Decreased Breath Sounds Cardiovascular: Regular Rate, Rhythm Neurologic/Psychiatric: Alert, Oriented x3, No Motor/Sensory Deficits, Normal Mood/Affect Results/Procedures Lab Laboratory Tests 08/15/22 05:30 Patient resulted labs reviewed. Imaging: Reviewed Imaging Films Assessment/Plan Assessment and Plan Assess & Plan/Chief Complaint Assessment: This is a 62 y/o male who presented with AHRF 2/2 to likely COPD exacerbation and was admitted to the ICU now on HD#4. AHRF Hypercapnea COPD exacerbation Elevated lactic acid Acute lower extremity swelling Hx of CAD Hx of HTN Hx of HLD AHRF - resolved Hypercapnea COPD exacerbation -Initially stabilized on BIPAP, then vapotherm, now on 2-3 LPM N.[place]. -Coninuing IV solu-medrol 80mg q6hr IV -Continuing Montelukast 10 mg HS -CXR has improving bibasilar airpsace opacities compared to previous (08/10); Last XR (08/11) appears largely unchanged -WBC 14.9 --> 11.8 --> 15.7 --> 13.7 --> 9.4 (08/13). Cefepime prophylaxis/exacerbation coverage deescalated to cefdinir on 08/11 BID plan for 5 days; afebrile, symptomatic improvement -Flu A/B, COVID panel negative. -Albuterol and Ipratropium scheduled/PRN -ABG upon ICU admit: 7.29/74/34/34 --> 7.34/53/111/28 --> 7.35/49/107/27 (08/11) - improving acute respiratory acidosis, likely close to baseline CO2 given hx. --D-dimer borderline elevated. Echo to recheck hx of pulmonary artery hypertension and evaluate for increased pressures --> no change in pulm a. pressures, improved EF. Will hold off on CTA. -Previous PFTs: FEV1/FVC 0.36, DLCO significantly elevated in 2020 c/w COPD/em physema. 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 Ulrich) Acute Rt lower extremity swelling -Doppler U/S negative for DVT (08/12) -Vast improvement today on exam s/p second dose of lasix. -Suspected mixed component of PAD given history of dangling leg over bed with mix of CHF -Will continue lasix today and monitor for any changes Elevated Lactic Acid - resolved -Elevated in setting of pO2 in 30s - likely hypoxia driven -Repeat is WNL Hx of CAD -Previously followed with Dr. Chicas; had been prescribed daily ASA, metoprolol, atorvastatin. -Med rec only showing atorvastatin -Consider FU with cardiology outpatient for further evaluation Hx of HTN -Will attempt to see if any outpatient treatment initiated -Pressures mildly elevated at times -Consider adding ACEi/ARB Hx of HLD -Resumed atorvastatin Hx of Opioid Use Disorder -Resumed patient's home Suboxone FEN/GI -Maintenance fluids DC'd; UOP responded favorably to lasix; -Replace electrolytes PRN, WNL today -Regular diet as tolerated; SSI -Bowel regimen (senna/docusate/miralax/lactulose). Add protonix for ulcer ppx. DVT PPx: Lovenox, SCDs Dispo: Stable. Will transfer to the floor and continue work with PT. Consider inpatient rehab given high amount of deconditioning FADI MENDOZA DO Aug 14, 2022 08:40
[2022-08-14] MEDS: [UNRECOGNIZED DRUG - OTHER] SL SCH (08:47)
[2022-08-14 11:19] VITALS: BP 138/84
[2022-08-14] MEDS: ENOXAPARIN 40 MG/0.4 ML (LOVENOX) SYR SC SCH (11:26)
--- NOTE | 2022-08-14 14:26 | Physical Therapy Progress Note ---
Therapy Progress Note Pt in bed. Reports feeling a little better than yesterday. "I'm just sleeping the day away". Pt declined to participate with PT this date. Will resume 08/16/2022. AROLDO HARRIS DPT Aug 14, 2022 14:26
[2022-08-14 16:14] VITALS: BP 169/88
[2022-08-14] MEDS: MONTELUKAST 10 MG (SINGULAIR) TAB PO SCH (19:41)
[2022-08-14 19:59] VITALS: BP 148/71
[2022-08-14 23:43] VITALS: BP 149/87
[2022-08-15] MEDS: RT-IPRATROPIUM (ATROVENT) 0.5MG/2.5ML AMP IH SCH ×6 (03:33→21:59)
[2022-08-15] MEDS: RT-ALBUTEROL SULF 2.5 MG/3 ML PRE-MIX VIAL INH SCH ×6 (03:33→21:59)
[2022-08-15 03:49] VITALS: BP 142/86
[2022-08-15 06:00] LABS: BASOPHILS % (AUTO) 0 % (0-10); EOSINOPHILS % (AUTO) 0 % (0-10); HEMATOCRIT 42 % (40-54); HEMOGLOBIN 13.9 g/dL (13.3-17.7); LYMPHOCYTES # (AUTO) 0.3 10^3/uL (1.0-4.0); LYMPHOCYTES % (AUTO) 3 % (12-44); MEAN CORPUSCULAR HEMOGLOBIN 32 pg (25-34); MEAN CORPUSCULAR HGB CONC 33 g/dL (32-36); MEAN CORPUSCULAR VOLUME 96 fL (80-99); MEAN PLATELET VOLUME 9.9 fL (9.0-12.2); MONOCYTES # (AUTO) 0.4 10^3/uL (0.0-1.0); MONOCYTES % (AUTO) 4 % (0-12); NEUTROPHILS # (AUTO) 9.7 10^3/uL (1.8-7.8); NEUTROPHILS % (AUTO) 90 % (42-75); PLATELET COUNT 151 10^3/uL (130-400); WHITE BLOOD COUNT 10.7 10^3/uL (4.3-11.0)
[2022-08-15 06:16] LABS: ALBUMIN 3.4 GM/DL (3.2-4.5); POTASSIUM 4.1 MMOL/L (3.6-5.0)
[2022-08-15 06:17] LABS: CALCIUM 9.3 MG/DL (8.5-10.1)
[2022-08-15 06:19] LABS: TOTAL PROTEIN 6.3 GM/DL (6.4-8.2)
[2022-08-15 06:20] LABS: BILIRUBIN,TOTAL 0.5 MG/DL (0.1-1.0)
[2022-08-15] MEDS: inSUlin ASPART (NovoLOG) 1 UNIT/0.01 ML (CHARGE PER UNIT) SC SCH ×4 (06:20→20:36)
[2022-08-15 06:22] LABS: CREATININE SERUM 0.75 MG/DL (0.60-1.30)
[2022-08-15 06:25] LABS: MAGNESIUM 2.3 MG/DL (1.6-2.4)
[2022-08-15] MEDS: UMECLIDINIUM BROMIDE (INCRUSE ELLIPTA) 7'S IH SCH (07:19)
[2022-08-15] MEDS: RT--FLUTICASONE/SALMETEROL 232-14 (AIRDUO RespiCLICK) IH SCH ×2 (07:20→19:06)
--- NOTE | 2022-08-15 07:31 | Progress Note - Hospitalist ---
Subjective HPI/CC On Admission Date Seen by Provider: Aug 15, 2022 Time Seen by Provider: 11:00 This is a 62 y/o male who presented to the ED today with SOB. He reports that over the past month he has had increasing dyspnea that is largely exertional with activities as minimal as standing. He says for the past week it has progressed more severely. He reports he sees Dr. Hutson and saw him about a month ago when these symptoms started and he gave him a low-dose prednisone in addition to his at-home inhalers but it does not seem to have helped that much. He also notes he has been recently gaining weight and has had new right lower leg/calf swelling and redness. He reports that he has very minor chest pain occasionally with breathing. He denies fever, chills, recent URI or other illnesses. He notes his BPs have been high recently but does not have a history of this. His history is significant for COPD and substance use disorder (opioids, alcohol) and says he has been clean for 4-5 years now. He has his own suboxone with him currently. He has a 51 pack-year former smoking history per records from PFTs in 2020. He says he has not smoked since 2021. In 2017 he received a heart workup with Dr. Chicas including an Echo, Cath, and stress testing. He received PFTs in 2020 consistent with severe emphysema/COPD. Subjective/Events-last exam Appears improved No falls Minimal movement causes dyspnea Reviewed labs and meds O2 maintained Review of Systems General: Fatigue Pulmonary: Dyspnea Objective Exam Vital Signs Vital Signs Date Time Temp Pulse Resp B/P (MAP) Pulse Ox O2 Delivery O2 Flow Rate FiO2 08/15/22 11:17 93 High Flow N/C 3.00 08/15/22 11:05 36.9 76 20 141/78 (99) 08/13/22 20:00 Capillary Refill : General Appearance: No Apparent Distress, WD/WN, Chronically ill Respiratory: No Accessory Muscle Use, No Respiratory Distress, Decreased Breath Sounds, Rales Cardiovascular: Regular Rate, Rhythm Neurologic/Psychiatric: Alert, Oriented x3, No Motor/Sensory Deficits, Normal Mood/Affect Results/Procedures Lab Laboratory Tests 08/15/22 05:30 Patient resulted labs reviewed. Imaging: Reviewed Imaging Films Assessment/Plan Assessment and Plan Assess & Plan/Chief Complaint Assessment: This is a 62 y/o male who presented with AHRF 2/2 to likely COPD exacerbation and was admitted to the ICU now on 4th AHRF Hypercapnea COPD exacerbation Elevated lactic acid Acute lower extremity swelling Hx of CAD Hx of HTN Hx of HLD AHRF - resolved Hypercapnea COPD exacerbation -Initially stabilized on BIPAP, then vapotherm, now on 2-3 LPM N.[place]. -Coninuing IV solu-medrol 80mg q6hr IV -Continuing Montelukast 10 mg HS -CXR has improving bibasilar airpsace opacities compared to previous (08/10); Last XR (08/11) appears largely unchanged -WBC 14.9 --> 11.8 --> 15.7 --> 13.7 --> 9.4 (08/13). Cefepime prophylaxis/exa cerbation coverage deescalated to cefdinir on 08/11 BID plan for 5 days; afebrile, symptomatic improvement -Flu A/B, COVID panel negative. -Albuterol and Ipratropium scheduled/PRN -ABG upon ICU admit: 7.29/74/34/34 --> 7.34/53/111/28 --> 7.35/49/107/27 (08/11) - improving acute respiratory acidosis, likely close to baseline CO2 given hx. --D-dimer borderline elevated. Echo to recheck hx of pulmonary artery hypertension and evaluate for increased pressures --> no change in pulm a. pressures, improved EF. Will hold off on CTA. -Previous PFTs: FEV1/FVC 0.36, DLCO significantly elevated in 2020 c/w C OPD/emphysema. 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 Ulrich) Acute Rt lower extremity swelling -Doppler U/S negative for DVT (08/12) -Vast improvement today on exam s/p second dose of lasix. -Suspected mixed component of PAD given history of dangling leg over bed with mi x of CHF -Will continue lasix today and monitor for any changes Elevated Lactic Acid - resolved -Elevated in setting of pO2 in 30s - likely hypoxia driven -Repeat is WNL Hx of CAD -Previously followed with Dr. Chicas; had been prescribed daily ASA, metoprolol, atorvastatin. -Med rec only showing atorvastatin -Consider FU with cardiology outpatient for further evaluation Hx of HTN -Will attempt to see if any outpatient treatment initiated -Pressures mildly elevated at times -Consider adding ACEi/ARB Hx of HLD -Resumed atorvastatin Hx of Opioid Use Disorder -Resumed patient's home Suboxone FEN/GI -Maintenance fluids DC'd; UOP responded favorably to lasix; -Replace electrolytes PRN, WNL today -Regular diet as tolerated; SSI -Bowel regimen (senna/docusate/miralax/lactulose). Add protonix for ulcer ppx. DVT PPx: Lovenox, SCDs Dispo: Stable. Will transfer to the floor and continue work with PT. Consider inpatient rehab given high amount of deconditioning FADI MENDOZA DO Aug 15, 2022 07:31
[2022-08-15 07:40] VITALS: BP 147/73
[2022-08-15] MEDS: DOCUSATE SODIUM 100 MG (COLACE) CAP PO SCH ×2 (08:15→19:32)
[2022-08-15] MEDS: CEFDINIR 300 MG (OMNICEF) CAP PO SCH ×2 (08:15→19:31)
[2022-08-15] MEDS: NICOTINE 14 MG (NICODERM) PATCH TD SCH (08:15)
[2022-08-15] MEDS: amLODIPine 5 MG (NORVASC) TAB PO SCH (08:15)
[2022-08-15] MEDS: guaiFENesin (MUCINEX) 600 MG TAB PO SCH ×2 (08:15→19:32)
[2022-08-15] MEDS: FLUoxetine HCL 20 MG (PROzac) CAP PO SCH (08:15)
[2022-08-15] MEDS: methylPREDNISolone 40 MG/ML (Solu-MEDROL) VIAL IV SCH ×2 (08:15→20:36)
[2022-08-15] MEDS: SENNOSIDES 8.6 MG (SENOKOT) TAB PO SCH ×2 (08:15→19:32)
[2022-08-15] MEDS: NICOTINE PATCH REMOVAL TP SCH (08:16)
[2022-08-15] MEDS: [UNRECOGNIZED DRUG - OTHER] SL SCH (08:21)
[2022-08-15 11:05] VITALS: BP 141/78
[2022-08-15] MEDS: ENOXAPARIN 40 MG/0.4 ML (LOVENOX) SYR SC SCH (11:07)
[2022-08-15 16:22] VITALS: BP 156/74
[2022-08-15] MEDS: MONTELUKAST 10 MG (SINGULAIR) TAB PO SCH (19:31)
[2022-08-15 20:11] VITALS: BP 144/70
[2022-08-15 23:41] VITALS: BP 154/84
[2022-08-16] MEDS: RT-IPRATROPIUM (ATROVENT) 0.5MG/2.5ML AMP IH SCH ×2 (02:46→07:02)
[2022-08-16] MEDS: RT-ALBUTEROL SULF 2.5 MG/3 ML PRE-MIX VIAL INH SCH ×2 (02:46→07:02)
[2022-08-16 03:32] VITALS: BP 140/75
[2022-08-16] MEDS: inSUlin ASPART (NovoLOG) 1 UNIT/0.01 ML (CHARGE PER UNIT) SC SCH ×4 (05:44→20:39)
[2022-08-16 05:54] LABS: BASOPHILS % (AUTO) 0 % (0-10); EOSINOPHILS % (AUTO) 0 % (0-10); HEMATOCRIT 42 % (40-54); HEMOGLOBIN 13.8 g/dL (13.3-17.7); LYMPHOCYTES # (AUTO) 0.3 10^3/uL (1.0-4.0); LYMPHOCYTES % (AUTO) 2 % (12-44); MEAN CORPUSCULAR HEMOGLOBIN 32 pg (25-34); MEAN CORPUSCULAR HGB CONC 33 g/dL (32-36); MEAN CORPUSCULAR VOLUME 96 fL (80-99); MEAN PLATELET VOLUME 9.7 fL (9.0-12.2); MONOCYTES # (AUTO) 0.6 10^3/uL (0.0-1.0); MONOCYTES % (AUTO) 5 % (0-12); NEUTROPHILS # (AUTO) 10.3 10^3/uL (1.8-7.8); NEUTROPHILS % (AUTO) 89 % (42-75); PLATELET COUNT 131 10^3/uL (130-400); WHITE BLOOD COUNT 11.6 10^3/uL (4.3-11.0)
[2022-08-16 06:08] LABS: ALBUMIN 3.2 GM/DL (3.2-4.5)
[2022-08-16 06:09] LABS: POTASSIUM 4.3 MMOL/L (3.6-5.0)
[2022-08-16 06:13] LABS: BILIRUBIN,TOTAL 0.5 MG/DL (0.1-1.0)
[2022-08-16 06:15] LABS: CREATININE SERUM 0.81 MG/DL (0.60-1.30)
[2022-08-16 06:18] LABS: MAGNESIUM 2.1 MG/DL (1.6-2.4)
[2022-08-16 06:23] LABS: LYMPHOCYTES % (MANUAL) 9 %; MONOCYTES % (MANUAL) 3 %; NEUTROPHILS % (MANUAL) 88 %; PLATELET ESTIMATE ADEQUATE; RBC MORPH NORMAL
[2022-08-16] MEDS: RT--FLUTICASONE/SALMETEROL 232-14 (AIRDUO RespiCLICK) IH SCH ×2 (07:02→21:55)
[2022-08-16] MEDS: UMECLIDINIUM BROMIDE (INCRUSE ELLIPTA) 7'S IH SCH (07:02)
[2022-08-16] MEDS: amLODIPine 5 MG (NORVASC) TAB PO SCH (07:36)
[2022-08-16] MEDS: guaiFENesin (MUCINEX) 600 MG TAB PO SCH ×2 (07:36→20:38)
[2022-08-16] MEDS: NICOTINE 14 MG (NICODERM) PATCH TD SCH (07:36)
[2022-08-16] MEDS: methylPREDNISolone 40 MG/ML (Solu-MEDROL) VIAL IV SCH ×2 (07:36→20:38)
[2022-08-16] MEDS: FLUoxetine HCL 20 MG (PROzac) CAP PO SCH (07:36)
[2022-08-16] MEDS: DOCUSATE SODIUM 100 MG (COLACE) CAP PO SCH ×2 (07:37→20:38)
[2022-08-16] MEDS: [UNRECOGNIZED DRUG - OTHER] SL SCH (07:37)
[2022-08-16] MEDS: SENNOSIDES 8.6 MG (SENOKOT) TAB PO SCH ×2 (07:37→20:38)
[2022-08-16] MEDS: NICOTINE PATCH REMOVAL TP SCH (07:38)
[2022-08-16 07:46] VITALS: BP 144/79
[2022-08-16 08:24] VITALS: BP 144/79
[2022-08-16 11:08] VITALS: BP 191/85
--- NOTE | 2022-08-16 11:29 | Physical Therapy Daily Note ---
PT Daily Note-Current Subjective Patient reports decreased anxiety on this date. Agrees to PT. Pain Section J - Health Conditions 1. Rarely or not at all 2. Occasionally 3. Frequently 4. Almost constantly 8. Unable to answer Pain Effect on Sleep: 1 Pain Interference with Therapy: 1 Pain Interference w/Day-to-Day: 1 Mental Status Patient Orientation: Normal For Age Attachments: Oxygen Transfers SCALE: Activities may be completed with or without assistive devices. 3-Soosdhgnxj-ftnqxbe completes the activity by him/herself with no assistance from a helper. 5-Set-up or Clean-up Assistance-helper sets up or cleans up; patient completes activity. [place] assists only prior to or following the activity. 4-Supervision or Touching Assistance-helper provides verbal cues and/or touching/steadying and/or contact guard assistance as patient completes activity. Assistance may be provided throughout the activity or intermittently. 3-Partial/Moderate Assistance-helper does LESS THAN HALF the effort. [place] lifts, holds or supports trunk or limbs, but provides less than half the effort. 2-Substantial/Maximal Assistance-helper does MORE THAN HALF the effort. [place] lifts or holds trunk or limbs and provides more than half the effort. 2-Atrtxuosc-tsxkrz does ALL the effort. Patient does none of the effort to c omplete the activity. Or, the assistance of 2 or more helpers is required for the patient to complete the activity. If activity was not attempted, code reason: 7-Patient Refused. 9-Not Applicable-not attempted and the patient did not perform the activity before the current illness, exacerbation or injury. 10-Not Attempted due to Environmental Limitations-(lack of equipment, weather restraints, etc.). 88-Not Attempted due to Medical Conditions or Safety Concerns. Lying to Sitting/Side of Bed(Q: 6 Sit to Stand (QC): 4 Chair/Bou-dm-Afcwp Xfer(QC): 4 Gait Training Distance: 10' Walk 10 feet (QC): 4 Gait Assistive Device: FWW functional gait sequence Assessment Patient tolerated minimal activity and requires time due to SOA with SAO2 >90% with activity. PT Driver Material Handler Goals [facility] Goals PT [facility] Goals Time Frame: Aug 28, 2022 Roll Left & Right (QC): 6 Sit to Lying (QC): 6 Lying-Sitting on Side/Bed(QC): 6 Sit to Stand (QC): 6 Chair/Rgj-lb-Dcduw Xfer(QC): 6 Toilet Transfer (QC): 6 Walk 10 feet (QC): 6 Walk 50ft with 2 Turns (QC): 6 Walk 150 ft (QC): 6 PT Plan Treatment/Plan Treatment Plan: Continue Plan of Care Treatment Plan: Bed Mobility, Education, Functional Activity [place], Functional Strength, Gait, Safety, Therapeutic Exercise, Transfers Treatment Duration: Aug 28, 2022 Frequency: 6 times per week Estimated Hrs Per Day: .25 hour per day Patient and/or Family Agrees t: Yes Time Time In: 1055 Time Out: 1108 DATE: Aug 16, 2022 Total Billed Treatment Time: 13 Total Billed Treatment 1 visit FA 13 min WILLIAM CUMMINGS PT Aug 16, 2022 11:29
[2022-08-16] MEDS: ENOXAPARIN 40 MG/0.4 ML (LOVENOX) SYR SC SCH (11:37)
--- NOTE | 2022-08-16 12:56 | Occupational Ther Daily Note ---
OT Current Status-Daily Note Subjective Up in recliner, agreeable to OT Mental Status/Objective Patient Orientation: Person, Place, Time, Situation Attachments: Oxygen ADL-Treatment Therapy Code Descriptions/Definitions Functional [place] Measure: 0=Not Assessed/NA 4=Minimal Assistance 1=Total Assistance 5=Supervision or Setup 2=Maximal Assistance 6=Modified [place] 3=Moderate Assistance 7=Complete IndependenceSCALE: Activities may be completed with or without assistive devices. 6-Heqiogghdy-ivdasoy completes the activity by him/herself with no assistance from a helper. 5-Set-up or Clean-up Assistance-helper sets up or cleans up; patient completes activity. [place] assists only prior to or following the activity. 4-Supervision or Touching Assistance-helper provides verbal cues and/or touching/steadying and/or contact guard assistance as patient completes activity. Assistance may be provided throughout the activity or intermittently. 3-Partial/Moderate Assistance-helper does LESS THAN HALF the effort. [place] lifts, holds or supports trunk or limbs, but provides less than half the effort. 2-Substantial/Maximal Assistance-helper does MORE THAN HALF the effort. [place] lifts or holds trunk or limbs and provides more than half the effort. 3-Wqjqrpyyr-zcjrlb does ALL the effort. Patient does none of the effort to complete the activity. Or, the assistance of 2 or more helpers is required for the patient to complete the activity. If activity was not attempted, code reason: 7-Patient Refused. 9-Not Applicable-not attempted and the patient did not perform the activity before the current illness, exacerbation or injury. 10-Not Attempted due to Environmental Limitations-(lack of equipment, weather restraints, etc.). 88-Not Attempted due to Medical Conditions or Safety Concerns. Eating (QC): 6 Oral Hygiene (QC): 5 (minimal teeth present) Bathing Location: L Arm, R Arm, Chest Shower/Bathe Self (QC): 4 (sponge in recliner w/ OT set up and assitance, patietn requires rest periods following each limb/section of hygiene) Upper Body Dressing (QC): 7 (rfused to perfom sponge bath d/t feeling of SOA, 02 3 liters NC 94% for completion of UB sponge min assist) Lower Body Dressing (QC): 7 (declined any lower body garments) On/Off Footwear: 7 Toileting Hygiene (QC): 4 Toilet Transfer (QC): 4 Education OT Patient Education: Correct positioning, Energy conservation, Modified ADL techniques, Progress toward Goal/Update tx plan, Purpose of tx/functional activities, Reviewed precautions, Rehab process, Safety issues, Transfer techniques Teaching Recipient: Patient Teaching Methods: Demonstration, Discussion Response to Teaching: Reinforcement Needed OT Facility Operations Manager Goals Facility Operations Manager Goals Eating (QC): 6 Oral Hygiene (QC): 5 Toileting Hygiene (QC): 4 Shower/Bathe Self (QC): 4 Upper Body Dressing (QC): 4 Lower Body Dressing (QC): 4 On/Off Footwear (QC): 4 1=Demonstrate adherence to instructed precautions during ADL tasks. 2=Patient will verbalize/demonstrate understanding of assistive cathy tomás/modifications for ADL. 3=Patient will improve strength/tolerance for activity to enable patient to perform ADL's. OT Education/Plan Problem List/Assessment Assessment: Decreased Activ Tolerance, Decreased UE Strength, Impaired Coordination, Impaired Funct Balance, Impaired Self-Care Skills Discharge Recommendations Plan/Recommendations: Continue POC Patient/Family Goals Remains up in recliner w/ clean gown, Lunch ready Treatment Plan/Plan of Care Treatment,Training & Education: Yes Patient would benefit from OT for education, treatment and training to promote independence in ADL's, mobility, safety and/or upper extremity function for ADL's. Plan of Care: ADL Retraining, Functional Mobility, Group Exercise/Act as Ind, UE Funct Exercise/Act Treatment Duration: Aug 21, 2022 Frequency: 3 times per week (3-5 times per week) Estimated Hrs Per Day: .25 hour per day Agreement: Yes Rehab Potential: Guarded Time Start Time: 11:14 Stop Time: 11:37 DATE: Aug 16, 2022 Total Time Billed (hr/min): 23 Billed Treatment Time ADL 2 23min ADARSH GARCIA OT Aug 16, 2022 12:56
--- NOTE | 2022-08-16 14:07 | Progress Note ---
Subjective Subjective/Events-last exam Patient states that he is feeling better. Tolerating PO diet. He is up in chair today. Review of Systems General: Fatigue, Malaise Pulmonary: Dyspnea; No Cough Cardiovascular: Edema; No: Chest Pain, Palpitations Gastrointestinal: No: Nausea, Vomiting, Abdominal Pain, Diarrhea, Constipation Neurological: Weakness, Incoordination Objective Exam Last Set of Vital Signs Vital Signs Date Time Temp Pulse Resp B/P (MAP) Pulse Ox O2 Delivery O2 Flow Rate FiO2 08/16/22 11:08 36.7 102 20 191/85 (120) 92 Nasal Cannula 3.00 08/13/22 20:00 Capillary Refill : I&O Intake and Output 08/16/22 00:00 Intake Total 2904 ml Output Total 1325 ml Balance 1579 ml Intake Oral 2904 ml Output Urine Total 1325 ml # Bowel Movements 1 General: Alert, Oriented X3, Moderate Distress (converstational dyspnea and moderate increased work of breathing with minimal exertion) Lungs: Other (diffuse wheezing) Heart: Regular Rate, No Murmurs Abdomen: Soft, No Tenderness Extremities: Other (2+ pitting edema ) Neuro: Normal Speech Results/Procedures Lab Laboratory Tests 08/15/22 15:42: Glucometer 210H 08/15/22 20:29: Glucometer 174H 08/16/22 05:18: Glucometer 183H 08/16/22 05:33: White Blood Count 11.6H, Red Blood Count 4.35, Hemoglobin 13.8, Hematocrit 42, Mean Corpuscular Volume 96, Mean Corpuscular Hemoglobin 32, Mean Corpuscular Hemoglobin Concent 33, Red Cell Distribution Width 12.5, Platelet Count 131, Mean Platelet Volume 9.7, Immature Granulocyte % (Auto) 4, Neutrophils (%) (Auto) 89H, Lymphocytes (%) (Auto) 2L, Monocytes (%) (Auto) 5, Eosinophils (%) (Auto) 0, Basophils (%) (Auto) 0, Neutrophils # (Auto) 10.3H, Lymphocytes # (Auto) 0.3L, Monocytes # (Auto) 0.6, Eosinophils # (Auto) 0.0, Basophils # (Auto) 0.0, Immature Granulocyte # (Auto) 0.5H, Neutrophils % (Manual) 88, Lymphocytes % (Manual) 9, Monocytes % (Manual) 3, Platelet Estimate ADEQUATE, Blood Morphology Comment NORMAL, Sodium Level 138, Potassium Level 4.3, Chloride Level 100, Carbon Dioxide Level 30, Anion Gap 8, Blood Urea Nitrogen 31H, Creatinine 0.81, Estimat Glomerular Filtration Rate 98, BUN/Creatinine Ratio 38, Glucose Level 188H, Calcium Level 9.0, Corrected Calcium 9.6, Magnesium Level 2.1, Total Bilirubin 0.5, Aspartate Amino Transf (AST/SGOT) 16, Alanine Aminotransferase (ALT/SGPT) 39, Alkaline Phosphatase 71, Total Protein 6.0L, Albumin 3.2 08/16/22 11:01: Glucometer 313H Microbiology 08/09/22 Urine Culture - Final, Complete NO GROWTH 08/09/22 MRSA Screen - Final, Complete MRSA not isolated 08/09/22 Blood Culture - Final, Complete No growth Assessment/Plan Assessment/Plan (1) COPD exacerbation Status: Acute Assessment & Plan: 08/16: Continue to titrate oxygen as tolerated, MAT protocol, discussed the importance of compliance with COPD meds (2) Hypercapnia Status: Chronic (3) HTN (hypertension) Status: Chronic Assessment & Plan: 08/16: Will start lisinopril 20 mg daily, continue norvasc (4) Coronary artery disease Status: Chronic Qualifiers: Qualified Codes: I25.10 - Atherosclerotic heart disease of [place] coronary artery without angina pectoris (5) Opiate dependence Status: Chronic Assessment & Plan: - Continue home suboxone (6) Debility Assessment & Plan: 08/16: Discussed acute rehab vs SNF (7) DVT prophylaxis Status: Acute Assessment & Plan: - DEIDRA Schneider MD Aug 16, 2022 14:07
[2022-08-16] MEDS: lisINopril 10 MG (PRINIVIL) TABLET PO SCH (14:25)
[2022-08-16] MEDS ORDERED: RT-ALBUTEROL SULF 2.5 MG/3 ML PRE-MIX VIAL INH SCH (15:00)
[2022-08-16] MEDS: RT-ALBUTEROL/IPRATROPIUM 3 ML (DUONEB) VIAL INH SCH ×2 (15:02→21:55)
[2022-08-16 15:34] VITALS: BP 138/80
[2022-08-16 19:22] VITALS: BP 141/72
[2022-08-16] MEDS: MONTELUKAST 10 MG (SINGULAIR) TAB PO SCH (20:38)
[2022-08-17] VITALS (7 sets, daily range): BP systolic 104–136; BP diastolic 64–82
[2022-08-17] MEDS: inSUlin ASPART (NovoLOG) 1 UNIT/0.01 ML (CHARGE PER UNIT) SC SCH ×4 (05:51→20:42)
[2022-08-17 05:53] LABS: BASOPHILS # (AUTO) 0.1 10^3/uL (0.0-0.1); BASOPHILS % (AUTO) 0 % (0-10); EOSINOPHILS % (AUTO) 0 % (0-10); HEMATOCRIT 46 % (40-54); HEMOGLOBIN 15.1 g/dL (13.3-17.7); LYMPHOCYTES # (AUTO) 0.3 10^3/uL (1.0-4.0); LYMPHOCYTES % (AUTO) 3 % (12-44); MEAN CORPUSCULAR HEMOGLOBIN 32 pg (25-34); MEAN CORPUSCULAR HGB CONC 33 g/dL (32-36); MEAN CORPUSCULAR VOLUME 97 fL (80-99); MEAN PLATELET VOLUME 9.9 fL (9.0-12.2); MONOCYTES # (AUTO) 0.6 10^3/uL (0.0-1.0); MONOCYTES % (AUTO) 4 % (0-12); NEUTROPHILS # (AUTO) 12.1 10^3/uL (1.8-7.8); NEUTROPHILS % (AUTO) 89 % (42-75); PLATELET COUNT 127 10^3/uL (130-400); WHITE BLOOD COUNT 13.7 10^3/uL (4.3-11.0)
[2022-08-17 05:57] LABS: ALBUMIN 3.3 GM/DL (3.2-4.5); POTASSIUM 4.9 MMOL/L (3.6-5.0)
[2022-08-17 05:59] LABS: TOTAL PROTEIN 6.1 GM/DL (6.4-8.2)
[2022-08-17 06:01] LABS: BILIRUBIN,TOTAL 0.5 MG/DL (0.1-1.0)
[2022-08-17 06:03] LABS: CREATININE SERUM 0.81 MG/DL (0.60-1.30)
[2022-08-17 06:06] LABS: MAGNESIUM 2.1 MG/DL (1.6-2.4)
[2022-08-17] MEDS: RT--FLUTICASONE/SALMETEROL 232-14 (AIRDUO RespiCLICK) IH SCH ×2 (08:11→22:22)
[2022-08-17] MEDS: RT-ALBUTEROL/IPRATROPIUM 3 ML (DUONEB) VIAL INH SCH ×3 (08:11→22:22)
[2022-08-17] MEDS: UMECLIDINIUM BROMIDE (INCRUSE ELLIPTA) 7'S IH SCH (08:11)
[2022-08-17] MEDS: lisINopril 10 MG (PRINIVIL) TABLET PO SCH (09:02)
[2022-08-17] MEDS: DOCUSATE SODIUM 100 MG (COLACE) CAP PO SCH ×2 (09:02→20:42)
[2022-08-17] MEDS: NICOTINE 14 MG (NICODERM) PATCH TD SCH (09:02)
[2022-08-17] MEDS: amLODIPine 5 MG (NORVASC) TAB PO SCH (09:02)
[2022-08-17] MEDS: guaiFENesin (MUCINEX) 600 MG TAB PO SCH ×2 (09:02→20:42)
[2022-08-17] MEDS: SENNOSIDES 8.6 MG (SENOKOT) TAB PO SCH ×2 (09:02→20:42)
[2022-08-17] MEDS: FLUoxetine HCL 20 MG (PROzac) CAP PO SCH (09:02)
[2022-08-17] MEDS: NICOTINE PATCH REMOVAL TP SCH (09:03)
[2022-08-17] MEDS: [UNRECOGNIZED DRUG - OTHER] SL SCH (09:03)
[2022-08-17] MEDS: methylPREDNISolone 40 MG/ML (Solu-MEDROL) VIAL IV SCH ×2 (09:03→20:42)
--- NOTE | 2022-08-17 10:18 | Physical Therapy Daily Note ---
PT Daily Note-Current Subjective Patient agrees to PT. Denies anxiety on this date Pain Section J - Health Conditions 1. Rarely or not at all 2. Occasionally 3. Frequently 4. Almost constantly 8. Unable to answer Pain Effect on Sleep: 1 Pain Interference with Therapy: 1 Pain Interference w/Day-to-Day: 1 Mental Status Patient Orientation: Normal For Age Attachments: Oxygen (3L HF NC) Transfers SCALE: Activities may be completed with or without assistive devices. 4-Ysvdmdrveb-lewkiqm completes the activity by him/herself with no assistance from a helper. 5-Set-up or Clean-up Assistance-helper sets up or cleans up; patient completes activity. [place] assists only prior to or following the activity. 4-Supervision or Touching Assistance-helper provides verbal cues and/or touching/steadying and/or contact guard assistance as patient completes activity. Assistance may be provided throughout the activity or intermittently. 3-Partial/Moderate Assistance-helper does LESS THAN HALF the effort. [place] lifts, holds or supports trunk or limbs, but provides less than half the effort. 2-Substantial/Maximal Assistance-helper does MORE THAN HALF the effort. [place] lifts or holds trunk or limbs and provides more than half the effort. 8-Fvivtwedw-yprews does ALL the effort. Patient does none of the effort to co mplete the activity. Or, the assistance of 2 or more helpers is required for the patient to complete the activity. If activity was not attempted, code reason: 7-Patient Refused. 9-Not Applicable-not attempted and the patient did not perform the activity before the current illness, exacerbation or injury. 10-Not Attempted due to Environmental Limitations-(lack of equipment, weather restraints, etc.). 88-Not Attempted due to Medical Conditions or Safety Concerns. Lying to Sitting/Side of Bed(Q: 6 Sit to Stand (QC): 5 Chair/Odu-te-Bmcml Xfer(QC): 5 Gait Training Distance: 10' x 4 Walk 10 feet (QC): 5 Gait Assistive Device: FWW functional gait sequence/minimal SOA with increased activity Exercises Seated Therapy Exercises: Ankle pumps, Long arc quads Seated Reps: 15 Assessment Patient much improved on this date with SAO2 remaining >90% with activity on 3L HF NC. Patient up in recliner with needs met. PT Detention Goals Housekeeper Home Goals PT Housekeeper Home Goals Time Frame: Aug 28, 2022 Roll Left & Right (QC): 6 Sit to Lying (QC): 6 Lying-Sitting on Side/Bed(QC): 6 Sit to Stand (QC): 6 Chair/Obp-ln-Sfhxb Xfer(QC): 6 Toilet Transfer (QC): 6 Walk 10 feet (QC): 6 Walk 50ft with 2 Turns (QC): 6 Walk 150 ft (QC): 6 PT Plan Treatment/Plan Treatment Plan: Continue Plan of Care Treatment Plan: Bed Mobility, Education, Functional Activity [place], Functional Strength, Gait, Safety, Therapeutic Exercise, Transfers Treatment Duration: Aug 28, 2022 Frequency: 6 times per week Estimated Hrs Per Day: .25 hour per day Patient and/or Family Agrees t: Yes Time Time In: 1002 Time Out: 1012 DATE: Aug 17, 2022 Total Billed Treatment Time: 10 Total Billed Treatment 1 visit FA 10 min WILLIAM CUMMINGS PT Aug 17, 2022 10:18
[2022-08-17] MEDS: ENOXAPARIN 40 MG/0.4 ML (LOVENOX) SYR SC SCH (11:47)
--- NOTE | 2022-08-17 11:47 | Occupational Ther Daily Note ---
OT Current Status-Daily Note Subjective Up in chair, agrees to OT, voice projection and volume improved Mental Status/Objective Patient Orientation: Person, Place, Time, Situation Attachments: Oxygen ADL-Treatment Therapy Code Descriptions/Definitions Functional [place] Measure: 0=Not Assessed/NA 4=Minimal Assistance 1=Total Assistance 5=Supervision or Setup 2=Maximal Assistance 6=Modified [place] 3=Moderate Assistance 7=Complete IndependenceSCALE: Activities may be completed with or without assistive devices. 9-Hjmpoktdoe-tpozwna completes the activity by him/herself with no assistance from a helper. 5-Set-up or Clean-up Assistance-helper sets up or cleans up; patient completes activity. [place] assists only prior to or following the activity. 4-Supervision or Touching Assistance-helper provides verbal cues and/or touching/steadying and/or contact guard assistance as patient completes activity. Assistance may be provided throughout the activity or intermittently. 3-Partial/Moderate Assistance-helper does LESS THAN HALF the effort. [place] li fts, holds or supports trunk or limbs, but provides less than half the effort. 2-Substantial/Maximal Assistance-helper does MORE THAN HALF the effort. [place] lifts or holds trunk or limbs and provides more than half the effort. 1-Naqzeivac-kkjsdz does ALL the effort. Patient does none of the effort to complete the activity. Or, the assistance of 2 or more helpers is required for the patient to complete the activity. If activity was not attempted, code reason: 7-Patient Refused. 9-Not Applicable-not attempted and the patient did not perform the activity before the current illness, exacerbation or injury. 10-Not Attempted due to Environmental Limitations-(lack of equipment, weather restraints, etc.). 88-Not Attempted due to Medical Conditions or Safety Concerns. Eating (QC): 6 Oral Hygiene (QC): 5 Shower/Bathe Self (QC): 7 (declined, reports recall of sponge bath of UB yesterday w/OT) Upper Body Dressing (QC): 4 (change gown) Lower Body Dressing (QC): 4 On/Off Footwear: 5 Toileting Hygiene (QC): 5 (patinet using urinal when healthcare staff are delayed in call light response) Toilet Transfer (QC): 4 Education OT Patient Education: Correct positioning, Disease process, Energy conservation, Modified ADL techniques, Progress toward Goal/Update tx plan, Purpose of tx/functional activities, Reviewed precautions, Rehab process, Safety issues, Transfer techniques, Use of adapted equipment Teaching Recipient: Patient Teaching Methods: Demonstration Response to Teaching: Verbalize Understanding, Reinforcement Needed OT Senior Report Developer Goals Assisted Goals Eating (QC): 6 Oral Hygiene (QC): 5 Toileting Hygiene (QC): 4 Shower/Bathe Self (QC): 4 Upper Body Dressing (QC): 4 Lower Body Dressing (QC): 4 On/Off Footwear (QC): 4 1=Demonstrate adherence to instructed precautions during ADL tasks. 2=Patient will verbalize/demonstrate understanding of assistive devices/modifications for ADL. 3=Patient will improve strength/tolerance for activity to enable patient to perform ADL's. OT Education/Plan Discharge Recommendations Plan/Recommendations: Continue POC Patient/Family Goals Up in chair all needs met, wants to go home Treatment Plan/Plan of Care Treatment,Training & Education: Yes Patient would benefit from OT for education, treatment and training to promote independence in ADL's, mobility, safety and/or upper extremity function for ADL's. Plan of Care: ADL Retraining, Functional Mobility, Group Exercise/Act as Ind, UE Funct Exercise/Act Treatment Duration: Aug 21, 2022 Frequency: 3 times per week (3-5 times per week) Estimated Hrs Per Day: .25 hour per day Agreement: Yes Rehab Potential: Guarded Time Start Time: 10:10 Stop Time: 10:33 DATE: Aug 17, 2022 Total Time Billed (hr/min): 23 Billed Treatment Time 1 visit ADL 2 23 min ADARSH GARCIA OT Aug 17, 2022 11:47
--- NOTE | 2022-08-17 19:09 | Progress Note ---
Subjective Subjective/Events-last exam Patient states that he is feeling better. States that he is only getting sleep when wearing the bipap and has not been able to tolerate CPAP. Up to chair today. Tolerating PO diet Review of Systems General: Fatigue Pulmonary: Dyspnea, Cough Cardiovascular: No: Chest Pain, Palpitations, Edema Gastrointestinal: No: Nausea, Vomiting, Abdominal Pain, Diarrhea, Constipation Neurological: Weakness, Incoordination Objective Exam Last Set of Vital Signs Vital Signs Date Time Temp Pulse Resp B/P (MAP) Pulse Ox O2 Delivery O2 Flow Rate FiO2 08/17/22 15:17 36.5 64 20 129/68 (88) 94 High Flow N/C 3.00 08/13/22 20:00 Capillary Refill : I&O Intake and Output 08/17/22 00:00 Intake Total 2070 ml Output Total 1970 ml Balance 100 ml Intake Oral 2070 ml Output Urine Total 1970 ml General: Alert, Oriented X3, Mild Distress (with minimal exertion) HEENT: Mucous Memb Moist/[place] Lungs: Other (Basilar wheezing, increased work of breathing with activity, converstational dyspnea iimproved) Heart: Regular Rate, No Murmurs Abdomen: Normal Bowel Sounds, Soft, No Tenderness Extremities: No Edema, No Tenderness/Swelling Neuro: Normal Speech Results/Procedures Lab Laboratory Tests 08/16/22 20:14: Glucometer 224H 08/17/22 05:35: Glucometer 195H, White Blood Count 13.7H, Red Blood Count 4.70, Hemoglobin 15.1, Hematocrit 46, Mean Corpuscular Volume 97, Mean Corpuscular Hemoglobin 32, Mean Corpuscular Hemoglobin Concent 33, Red Cell Distribution Width 12.7, Platelet Count 127L, Mean Platelet Volume 9.9, Immature Granulocyte % (Auto) 4, Neutrophils (%) (Auto) 89H, Lymphocytes (%) (Auto) 3L, Monocytes (%) (Auto) 4, Eosinophils (%) (Auto) 0, Basophils (%) (Auto) 0, Neutrophils # (Auto) 12.1H, Lymphocytes # (Auto) 0.3L, Monocytes # (Auto) 0.6, Eosinophils # (Auto) 0.0, Basophils # (Auto) 0.1, Immature Granulocyte # (Auto) 0.6H, Percent Immature Platelet Fraction 3.8, Sodium Level 138, Potassium Level 4.9, Chloride Level 99, Carbon Dioxide Level 29, Anion Gap 10, Blood Urea Nitrogen 29H, Creatinine 0.81, Estimat Glomerular Filtration Rate 98, BUN/Creatinine Ratio 36, Glucose Level 207H, Calcium Level 9.0, Corrected Calcium 9.6, Magnesium Level 2.1, Total Bilirubin 0.5, Aspartate Amino Transf (AST/SGOT) 17, Alanine Aminotransferase ( ALT/SGPT) 42, Alkaline Phosphatase 68, Total Protein 6.1L, Albumin 3.3 08/17/22 11:26: Glucometer 202H 08/17/22 15:16: Glucometer 328H Microbiology 08/09/22 Urine Culture - Final, Complete NO GROWTH 08/09/22 MRSA Screen - Final, Complete MRSA not isolated 08/09/22 Blood Culture - Final, Complete No growth Assessment/Plan Assessment/Plan (1) COPD exacerbation Status: Acute Assessment & Plan: 08/16: Continue to titrate oxygen as tolerated, MAT protocol, discussed the importance of compliance with COPD meds 08/17: On home oxygen, Will do nighttime pulse ox for home bipap due to high risk of readmission and symptom improvement, He has not been able to tolerate CPAP in the past (2) Hypercapnia Status: Chronic (3) HTN (hypertension) Status: Chronic Assessment & Plan: 08/16: Will start lisinopril 20 mg daily, continue norvasc 08/17: Blood pressure better controlled today (4) Coronary artery disease Status: Chronic Qualifiers: Qualified Codes: I25.10 - Atherosclerotic heart disease of [place] coronary artery without angina pectoris (5) Opiate dependence Status: Chronic Assessment & Plan: - Continue home suboxone (6) Debility Assessment & Plan: 08/16: Discussed acute rehab vs SNF 08/17: Patient desires home with PT (7) DVT prophylaxis Status: Acute Assessment & Plan: - DEIDRA Schneider MD Aug 17, 2022 19:09
[2022-08-17] MEDS: MONTELUKAST 10 MG (SINGULAIR) TAB PO SCH (20:42)
[2022-08-18] MEDS: RT-ALBUTEROL/IPRATROPIUM 3 ML (DUONEB) VIAL INH SCH ×4 (02:27→20:32)
[2022-08-18 03:35] VITALS: BP 123/72
[2022-08-18] MEDS: inSUlin ASPART (NovoLOG) 1 UNIT/0.01 ML (CHARGE PER UNIT) SC SCH ×4 (05:40→21:05)
[2022-08-18 06:37] LABS: BASOPHILS % (AUTO) 0 % (0-10); EOSINOPHILS % (AUTO) 0 % (0-10); HEMATOCRIT 43 % (40-54); HEMOGLOBIN 14.1 g/dL (13.3-17.7); LYMPHOCYTES # (AUTO) 0.2 10^3/uL (1.0-4.0); LYMPHOCYTES % (AUTO) 2 % (12-44); MEAN CORPUSCULAR HEMOGLOBIN 32 pg (25-34); MEAN CORPUSCULAR HGB CONC 33 g/dL (32-36); MEAN CORPUSCULAR VOLUME 96 fL (80-99); MEAN PLATELET VOLUME 9.8 fL (9.0-12.2); MONOCYTES # (AUTO) 0.5 10^3/uL (0.0-1.0); MONOCYTES % (AUTO) 4 % (0-12); NEUTROPHILS # (AUTO) 11.5 10^3/uL (1.8-7.8); NEUTROPHILS % (AUTO) 90 % (42-75); PLATELET COUNT 136 10^3/uL (130-400); WHITE BLOOD COUNT 12.8 10^3/uL (4.3-11.0)
[2022-08-18 06:42] LABS: ALBUMIN 3.1 GM/DL (3.2-4.5); POTASSIUM 4.4 MMOL/L (3.6-5.0)
[2022-08-18 06:43] LABS: CALCIUM 8.8 MG/DL (8.5-10.1)
[2022-08-18 06:45] LABS: TOTAL PROTEIN 5.8 GM/DL (6.4-8.2)
[2022-08-18 06:46] LABS: BILIRUBIN,TOTAL 0.5 MG/DL (0.1-1.0)
[2022-08-18 06:48] LABS: CREATININE SERUM 0.74 MG/DL (0.60-1.30)
[2022-08-18 07:17] VITALS: BP 131/72
[2022-08-18] MEDS: SENNOSIDES 8.6 MG (SENOKOT) TAB PO SCH ×2 (08:03→21:05)
[2022-08-18] MEDS: methylPREDNISolone 40 MG/ML (Solu-MEDROL) VIAL IV SCH (08:03)
[2022-08-18] MEDS: NICOTINE PATCH REMOVAL TP SCH (08:03)
[2022-08-18] MEDS: lisINopril 10 MG (PRINIVIL) TABLET PO SCH (08:04)
[2022-08-18] MEDS: FLUoxetine HCL 20 MG (PROzac) CAP PO SCH (08:04)
[2022-08-18] MEDS: guaiFENesin (MUCINEX) 600 MG TAB PO SCH ×2 (08:04→21:04)
[2022-08-18] MEDS: DOCUSATE SODIUM 100 MG (COLACE) CAP PO SCH ×2 (08:04→21:05)
[2022-08-18] MEDS: amLODIPine 5 MG (NORVASC) TAB PO SCH (08:04)
[2022-08-18] MEDS: UMECLIDINIUM BROMIDE (INCRUSE ELLIPTA) 7'S IH SCH (08:05)
[2022-08-18] MEDS: RT--FLUTICASONE/SALMETEROL 232-14 (AIRDUO RespiCLICK) IH SCH ×2 (08:05→20:32)
[2022-08-18] MEDS: NICOTINE 14 MG (NICODERM) PATCH TD SCH (08:13)
[2022-08-18] MEDS: [UNRECOGNIZED DRUG - OTHER] SL SCH (08:13)
[2022-08-18] MEDS: ENOXAPARIN 40 MG/0.4 ML (LOVENOX) SYR SC SCH (10:37)
--- NOTE | 2022-08-18 11:16 | Occupational Ther Daily Note ---
OT Current Status-Daily Note Subjective UP in bed requesting short walk and declined LB cleansing w/ Sponge bathe, portable 02 tank w/ [place] obtained while nurse remained in room Mental Status/Objective Patient Orientation: Situation (anticipates going home soon, needs for home not finalized) Attachments: Oxygen (3 Lt/ 5 w/ ambulation) ADL-Treatment Therapy Code Descriptions/Definitions Functional [place] Measure: 0=Not Assessed/NA 4=Minimal Assistance 1=Total Assistance 5=Supervision or Setup 2=Maximal Assistance 6=Modified [place] 3=Moderate Assistance 7=Complete IndependenceSCALE: Activities may be completed with or without assistive devices. 4-Sdvdhlfgrv-znehrnv completes the activity by him/herself with no assistance from a helper. 5-Set-up or Clean-up Assistance-helper sets up or cleans up; patient completes activity. [place] assists only prior to or following the activity. 4-Supervision or Touching Assistance-helper provides verbal cues and/or touching/steadying and/or contact guard assistance as patient completes activity. Assistance may be provided throughout the activity or intermittently. 3-Partial/Moderate Assistance-helper does LESS THAN HALF the effort. [place] lifts, holds or supports trunk or limbs, but provides less than half the effort. 2-Substantial/Maximal Assistance-helper does MORE THAN HALF the effort. [place] lifts or holds trunk or limbs and provides more than half the effort. 1-Fylwivlly-tuxwxe does ALL the effort. Patient does none of the effort to complete the activity. Or, the assistance of 2 or more helpers is required for the patient to complete the activity. If activity was not attempted, code reason: 7-Patient Refused. 9-Not Applicable-not attempted and the patient did not perform the activity before the current illness, exacerbation or injury. 10-Not Attempted due to Environmental Limitations-(lack of equipment, weather restraints, etc.). 88-Not Attempted due to Medical Conditions or Safety Concerns. Eating (QC): 6 Oral Hygiene (QC): 5 Shower/Bathe Self (QC): 7 Upper Body Dressing (QC): 5 Lower Body Dressing (QC): 5 On/Off Footwear: 5 (uses humor and sarcasm to facilitate assistance) Toileting Hygiene (QC): 7 Toilet Transfer (QC): 7 Using urinal bedside, patient is very pleasant today and shares patient directed conversation Education OT Patient Education: Energy conservation, Progress toward Goal/Update tx plan, Purpose of tx/functional activities, Rehab process, Safety issues, Transfer techniques, Use of adapted equipment Teaching Recipient: Patient Teaching Methods: Demonstration, Discussion Response to Teaching: Return Demonstration, Reinforcement Needed OT [place] Luggage Goals Detention Goals Eating (QC): 6 Oral Hygiene (QC): 5 Toileting Hygiene (QC): 4 Shower/Bathe Self (QC): 4 Upper Body Dressing (QC): 4 Lower Body Dressing (QC): 4 On/Off Footwear (QC): 4 1=Demonstrate adherence to instructed precautions during ADL tasks. 2=Patient will verbalize/demonstrate understanding of assistive devices/modifications for ADL. 3=Patient will improve strength/tolerance for activity to enable patient to perform ADL's. OT Education/Plan Problem List/Assessment Assessment: Decreased Activ Tolerance, Impaired Self-Care Skills Discharge Recommendations Plan/Recommendations: Continue POC Treatment Plan/Plan of Care Patient would benefit from OT for education, treatment and training to promote independence in ADL's, mobility, safety and/or upper extremity function for ADL's. Plan of Care: ADL Retraining, Functional Mobility, Group Exercise/Act as Ind, UE Funct Exercise/Act Treatment Duration: Aug 21, 2022 Frequency: 3 times per week (3-5 times per week) Estimated Hrs Per Day: .25 hour per day Agreement: Yes Rehab Potential: Guarded Ambulated just outside doorway and performed standing rest break, held conversation and returned to recliner. OT removed unwanted items from tray and set call light in reach, all needs met Time Start Time: 09:55 Stop Time: 10:20 DATE: Aug 18, 2022 Total Time Billed (hr/min): 25 Billed Treatment Time ADL 1, FA 1 25 min ADARSH GARCIA OT Aug 18, 2022 11:16
[2022-08-18 12:00] VITALS: BP 158/80
--- NOTE | 2022-08-18 13:24 | Physical Therapy Daily Note ---
PT Daily Note-Current Subjective Pt. agrees to Rx, "I feel like Im doing better , thats 2 good walks in one day, couldnt do that at home" Pain Location: No Pain Reported Section J - Health Conditions 1. Rarely or not at all 2. Occasionally 3. Frequently 4. Almost constantly 8. Unable to answer Pain Effect on Sleep: 1 Pain Interference with Therapy: 1 Pain Interference w/Day-to-Day: 1 Mental Status Patient Orientation: Normal For Age Attachments: Oxygen (3-5 L ) Transfers SCALE: Activities may be completed with or without assistive devices. 4-Qptwdzkfry-zydffdq completes the activity by him/herself with no assistance from a helper. 5-Set-up or Clean-up Assistance-helper sets up or cleans up; patient completes activity. [place] assists only prior to or following the activity. 4-Supervision or Touching Assistance-helper provides verbal cues and/or touching/steadying and/or contact guard assistance as patient completes activity. Assistance may be provided throughout the activity or intermittently. 3-Partial/Moderate Assistance-helper does LESS THAN HALF the effort. [place] lifts, holds or supports trunk or limbs, but provides less than half the effort. 2-Substantial/Maximal Assistance-helper does MORE THAN HALF the effort. [place] lifts or holds trunk or limbs and provides more than half the effort. 7-Olalllokm-ushnuj does ALL the effort. Patient does none of the effort to complete the activity. Or, the assistance of 2 or more helpers is required for the patient to complete the activity. If activity was not attempted, code reason: 7-Patient Refused. 9-Not Applicable-not attempted and the patient did not perform the activity before the current illness, exacerbation or injury. 10-Not Attempted due to Environmental Limitations-(lack of equipment, weather restraints, etc.). 88-Not Attempted due to Medical Conditions or Safety Concerns. sit to stand x 3 SBA Gait Training Does the Patient Walk?: Yes Gait Assistive Device: FWW 50 ft, 10 ft slow, toe out NBOS, some dyspnea noted, but recovered fairly quick after seated and at rest Exercises Seated Therapy Exercises: Ankle pumps, Long arc quads, Hip flexion Seated Reps: 10 Treatments seated EX, gait, in chair after with call barrera at hand Assessment Current Status: Good Progress francisco Rx well PT Emergency Medical Technician Basic Goals Emergency Medical Technician Basic Goals PT Longterm Goals Time Frame: Aug 28, 2022 Roll Left & Right (QC): 6 Sit to Lying (QC): 6 Lying-Sitting on Side/Bed(QC): 6 Sit to Stand (QC): 6 Chair/Icz-zg-Chyvz Xfer(QC): 6 Toilet Transfer (QC): 6 Walk 10 feet (QC): 6 Walk 50ft with 2 Turns (QC): 6 Walk 150 ft (QC): 6 PT Plan Treatment/Plan Treatment Plan: Continue Plan of Care Treatment Plan: Bed Mobility, Education, Functional Activity [place], Functional Strength, Gait, Safety, Therapeutic Exercise, Transfers Treatment Duration: Aug 28, 2022 Frequency: 6 times per week Estimated Hrs Per Day: .25 hour per day Patient and/or Family Agrees t: Yes Safety Risks/Education Patient Education: Gait Training, Transfer Techniques, Safety Issues Teaching Recipient: Patient Response to Teaching: Reinforcement Needed Time Time In: 1300 Time Out: 1321 DATE: Aug 18, 2022 Total Billed Treatment Time: 21 Total Billed Treatment 1,GT21m KELSIE HERRING IT SUPPORT ANALYST Aug 18, 2022 13:24
[2022-08-18 15:32] VITALS: BP 141/80
--- NOTE | 2022-08-18 16:57 | Progress Note ---
Subjective Subjective/Events-last exam Patient is feeling much better. He has been up walking. Tolerating PO diet. Review of Systems General: Fatigue Pulmonary: Dyspnea Cardiovascular: No: Chest Pain, Palpitations, Edema Gastrointestinal: No: Nausea, Vomiting, Abdominal Pain, Diarrhea, Constipation Neurological: Weakness, Incoordination Objective Exam Last Set of Vital Signs Vital Signs Date Time Temp Pulse Resp B/P (MAP) Pulse Ox O2 Delivery O2 Flow Rate FiO2 08/18/22 15:32 36.3 100 21 141/80 (100) 91 High Flow N/C 3.00 08/18/22 08:17 100 Capillary Refill : I&O Intake and Output 08/17/22 23:59 Intake Total 1510 ml Output Total 1650 ml Balance -140 ml Intake Oral 1510 ml Output Urine Total 1650 ml General: Alert, Oriented X3, No Acute Distress Lungs: Other (basilar wheezing, normal work of breathing at baseline) Heart: Regular Rate, No Murmurs Abdomen: Normal Bowel Sounds, Soft, No Tenderness, No Masses Extremities: No Edema, No Tenderness/Swelling Neuro: Normal Speech Results/Procedures Lab Laboratory Tests 08/17/22 20:22: Glucometer 279H 08/18/22 05:27: Glucometer 231H 08/18/22 06:25: White Blood Count 12.8H, Red Blood Count 4.44, Hemoglobin 14.1, Hematocrit 43, Mean Corpuscular Volume 96, Mean Corpuscular Hemoglobin 32, Mean Corpuscular Hemoglobin Concent 33, Red Cell Distribution Width 12.7, Platelet Count 136, Mean Platelet Volume 9.8, Immature Granulocyte % (Auto) 4, Neutrophils (%) (Auto) 90H, Lymphocytes (%) (Auto) 2L, Monocytes (%) (Auto) 4, Eosinophils (%) (Auto) 0, Basophils (%) (Auto) 0, Neutrophils # (Auto) 11.5H, Lymphocytes # (Auto) 0.2L, Monocytes # (Auto) 0.5, Eosinophils # (Auto) 0.0, Basophils # (Auto) 0.0, Immature Granulocyte # (Auto) 0.5H, Sodium Level 138, Potassium Level 4.4, Chloride Level 100, Carbon Dioxide Level 29, Anion Gap 9, Blood Urea Nitrogen 24H, Creatinine 0.74, Estimat Glomerular Filtration Rate 101, BUN/Creatinine Ratio 32, Glucose Level 204H, Calcium Level 8.8, Corrected Calcium 9.5, Magnesium Level 2.0, Total Bilirubin 0.5, Aspartate Amino Transf (AST/SGOT) 15, Alanine Aminotransferase (ALT/SGPT) 43, Alkaline Phosphatase 64, Total Protein 5.8L, Albumin 3.1L 08/18/22 10:23: Glucometer 201H 08/18/22 15:31: Glucometer 329H Microbiology 08/09/22 Urine Culture - Final, Complete NO GROWTH 08/09/22 MRSA Screen - Final, Complete MRSA not isolated 08/09/22 Blood Culture - Final, Complete No growth Assessment/Plan Assessment/Plan (1) COPD exacerbation Status: Acute Assessment & Plan: 08/16: Continue to titrate oxygen as tolerated, MAT protocol, discussed the importance of compliance with COPD meds 08/17: On home oxygen, Will do nighttime pulse ox for home bipap due to high risk of readmission and symptom improvement, He has not been able to tolerate CPAP in the past 08/18: Working on getting home bipap, patient ok to d/c once script is ready (2) Hypercapnia Status: Chronic (3) HTN (hypertension) Status: Chronic Assessment & Plan: 08/16: Will start lisinopril 20 mg daily, continue norvasc 08/17: Blood pressure better controlled today (4) Coronary artery disease Status: Chronic Qualifiers: Qualified Codes: I25.10 - Atherosclerotic heart disease of [place] coronary artery without angina pectoris (5) Opiate dependence Status: Chronic Assessment & Plan: - Continue home suboxone (6) Debility Assessment & Plan: 08/16: Discussed acute rehab vs SNF 08/17: Patient desires home with PT (7) DVT prophylaxis Status: Acute Assessment & Plan: - DEIDRA Schneider MD Aug 18, 2022 16:57
[2022-08-18 20:02] VITALS: BP 134/85
[2022-08-18] MEDS: MONTELUKAST 10 MG (SINGULAIR) TAB PO SCH (21:04)
[2022-08-19 00:25] VITALS: BP 131/74
[2022-08-19] MEDS: RT-ALBUTEROL/IPRATROPIUM 3 ML (DUONEB) VIAL INH SCH ×2 (03:20→10:06)
[2022-08-19 03:49] VITALS: BP 121/71
[2022-08-19] MEDS: inSUlin ASPART (NovoLOG) 1 UNIT/0.01 ML (CHARGE PER UNIT) SC SCH ×2 (05:38→11:45)
[2022-08-19 05:44] LABS: BASOPHILS % (AUTO) 0 % (0-10); MEAN CORPUSCULAR VOLUME 97 fL (80-99)
[2022-08-19 05:46] LABS: BASOPHILS # (AUTO) 0.1 10^3/uL (0.0-0.1); EOSINOPHILS % (AUTO) 0 % (0-10); HEMATOCRIT 44 % (40-54); HEMOGLOBIN 14.9 g/dL (13.3-17.7); LYMPHOCYTES # (AUTO) 1.2 10^3/uL (1.0-4.0); LYMPHOCYTES % (AUTO) 9 % (12-44); MEAN CORPUSCULAR HEMOGLOBIN 33 pg (25-34); MEAN CORPUSCULAR HGB CONC 34 g/dL (32-36); MEAN PLATELET VOLUME 9.7 fL (9.0-12.2); MONOCYTES # (AUTO) 0.9 10^3/uL (0.0-1.0); MONOCYTES % (AUTO) 7 % (0-12); NEUTROPHILS # (AUTO) 10.7 10^3/uL (1.8-7.8); NEUTROPHILS % (AUTO) 80 % (42-75); PLATELET COUNT 128 10^3/uL (130-400); WHITE BLOOD COUNT 13.5 10^3/uL (4.3-11.0)
[2022-08-19 06:18] LABS: BILIRUBIN,TOTAL 0.5 MG/DL (0.1-1.0); CALCIUM 8.8 MG/DL (8.5-10.1); CREATININE SERUM 0.78 MG/DL (0.60-1.30); POTASSIUM 4.5 MMOL/L (3.6-5.0)
[2022-08-19] MEDS ORDERED: predniSONE 20 MG TAB PO SCH (07:00)
[2022-08-19] MEDS: SENNOSIDES 8.6 MG (SENOKOT) TAB PO SCH (07:57)
[2022-08-19] MEDS: DOCUSATE SODIUM 100 MG (COLACE) CAP PO SCH (07:57)
[2022-08-19 08:02] VITALS: BP 116/70
[2022-08-19] MEDS: guaiFENesin (MUCINEX) 600 MG TAB PO SCH (09:12)
[2022-08-19] MEDS: FLUoxetine HCL 20 MG (PROzac) CAP PO SCH (09:12)
[2022-08-19] MEDS: NICOTINE 14 MG (NICODERM) PATCH TD SCH (09:13)
[2022-08-19] MEDS: [UNRECOGNIZED DRUG - OTHER] SL SCH (09:14)
[2022-08-19] MEDS: NICOTINE PATCH REMOVAL TP SCH (09:16)
[2022-08-19] MEDS: UMECLIDINIUM BROMIDE (INCRUSE ELLIPTA) 7'S IH SCH (10:06)
[2022-08-19] MEDS: RT--FLUTICASONE/SALMETEROL 232-14 (AIRDUO RespiCLICK) IH SCH (10:07)
--- NOTE | 2022-08-19 11:14 | Occ Therapy Progress Note ---
Therapy Progress Note Patient reports gong home today, waiting for DC to be complete, has ride ready and someone meeting him at home. NO DC summary or note observed by this OT ADARSH GARCIA OT Aug 19, 2022 11:14
[2022-08-19] MEDS ORDERED: RT-ALBUTEROL/IPRATROPIUM 3 ML (DUONEB) VIAL INH PRN (11:15)
[2022-08-19 11:21] VITALS: BP 141/95
[2022-08-19] MEDS: amLODIPine 5 MG (NORVASC) TAB PO SCH (11:21)
[2022-08-19] MEDS: lisINopril 10 MG (PRINIVIL) TABLET PO SCH (11:21)
[2022-08-19] MEDS ORDERED: LISI10TA25 PO (11:43)
[2022-08-19] MEDS ORDERED: OXC5T PO (11:43)
[2022-08-19] MEDS ORDERED: MONT-40 PO (11:43)
[2022-08-19] MEDS ORDERED: PRED10TA22 PO (11:43)
[2022-08-19] MEDS ORDERED: IPRA3AMP31 INH (11:43)
[2022-08-19] MEDS ORDERED: NICO1PAT38 TD (11:43)
[2022-08-19] MEDS: ENOXAPARIN 40 MG/0.4 ML (LOVENOX) SYR SC SCH (11:45)
--- NOTE | 2022-08-19 11:45 | D/C HH Face to Face Order ---
D/C Face to Face Orders Reconcile Patient Problems Problems Reviewed?: Yes Instructions for Patient [place] Patient Instructions/FollowUp: [facility] 1 week Physician to follow Patient: [facility] Discharge Diet for Home: No Restrictions Patient Problems: copd Patient Data-Allergies,Ht & Wt Patient Allergies: Coded Allergies: No Known Drug Allergies (Unverified , 03/30/22) Height (Feet): 5 Height (Inches): 8.00 Weight (Pounds): 135 Weight (Ounces): 0.0 Home Health Need/Face to Face Date of Face to Face: Aug 19, 2022 Clinical Findings: Generalized weakness and fatigue, Instability, Muscle weakness I have seen Pt [id number]: Yes Discharged To: Home Diagnosis/Conditions: copd Patient is Homebound due to: Anayeli fall risk due to instabilty, Muscle weakness, Shortness of breath/distress Homebound Status Due to the above stated illness, injury or surgical procedure (medical condition or diagnosis) and associated clinical findings, the patient is homebound because of his/her inability to leave home except with aid of a supportive device and/or person AND leaving the home requires a considerable and taxing effort or is medically contraindicated. Pt req the following assistanc: [facility] Nursing Orders Home Health Services Order: Nursing Services, Chronometer Repairer-Evaluate & Treat, Physical Therapy-Evaluate & Treat Certify Stmt I certify that this patient is under my care and that I, a nurse practitioner or a physician; a customer relations assistant working with me, had a face to face encounter that - meets the physician face to face encounter requirements with this patient as dated. FADI MENDOZA DO Aug 19, 2022 11:45
--- NOTE | 2022-08-19 11:45 | Discharge Summary ---
Discharge Summary Hospital Course Was the Problem List Reviewed?: Yes Problems/Dx: (1) Acute respiratory failure Status: Acute Qualifiers: Qualified Codes: J96.02 - Acute respiratory failure with hypercapnia (2) Hypercapnia Status: Chronic (3) Debility (4) HTN (hypertension) Status: Chronic (5) COPD exacerbation Status: Acute (6) COPD (chronic obstructive pulmonary disease) with acute bronchitis Status: Acute (7) Coronary artery disease Status: Chronic Qualifiers: Qualified Codes: I25.10 - Atherosclerotic heart disease of [place] coronary artery without angina pectoris (8) Opiate dependence Status: Chronic Hospital Course Date of Admission: Aug 09, 2022 at 09:24 Admission Diagnosis : Family Physician/Provider: Vianca Hutson MD Date of Discharge: 08/19/22 Discharge Diagnosis: [ ] Hospital Course: Lengthy course after he was admitted for acute on chronic respiratory failure required biPAP and Vapotherm for lengthy course after IV steroids and aggressive pulmonary management. Smoking cessation counseled. Overall he had no decompensation just slow recovery. Labs remained stable. Hospice for end stage lung disease was already planned in the future with [facility]. Labs and Pending Lab Test: Laboratory Tests 08/18/22 15:31: Glucometer 329H 08/18/22 21:03: Glucometer 280H 08/19/22 05:34: Glucometer 167H, White Blood Count 13.5H, Red Blood Count 4.58, Hemoglobin 14.9, Hematocrit 44, Mean Corpuscular Volume 97, Mean Corpuscular Hemoglobin 33, Mean Corpuscular Hemoglobin Concent 34, Red Cell Distribution Width 12.8, Platelet Count 128L, Mean Platelet Volume 9.7, Immature Granulocyte % (Auto) 4, Neutrophils (%) (Auto) 80H, Lymphocytes (%) (Auto) 9L, Monocytes (%) (Auto) 7, Eosinophils (%) (Auto) 0, Basophils (%) (Auto) 0, Neutrophils # (Auto) 10.7H, Lymphocytes # (Auto) 1.2, Monocytes # (Auto) 0.9, Eosinophils # (Auto) 0.0, Basophils # (Auto) 0.1, Immature Granulocyte # (Auto) 0.6H, Percent Immature Platelet Fraction 3.4, Sodium Level 140, Potassium Level 4.5, Chloride Level 103, Carbon Dioxide Level 28, Anion Gap 9, Blood Urea Nitrogen 25H, Creatinine 0.78, Estimat Glomerular Filtration Rate 100, BUN/Creatinine Ratio 32, Glucose Level 170H, Calcium Level 8.8, Corrected Calcium 9.6, Magnesium Level 2.0, Total Bilirubin 0.5, Aspartate Amino Transf (AST/SGOT) 21, Alanine Aminotransferase (ALT/SGPT) 43, Alkaline Phosphatase 65, Total Protein 6.0L, Albumin 3.0L 08/19/22 10:43: Glucometer 213H Microbiology 08/09/22 Urine Culture - Final, Complete NO GROWTH 08/09/22 MRSA Screen - Final, Complete MRSA not isolated 08/09/22 Blood Culture - Final, Complete No growth Home Meds Active Prednisone 10 Mg Tab.ds.pk 10 Mg PO DAILY Take 6 tabs(60mg)daily,decrease by 1 tab(10MG)daily. Montelukast Sodium 10 Mg Tablet 10 Mg PO HS Oxyir Tablet (Oxycodone HCl) 5 Mg Tab 5 Mg PO Q4HR PRN Lisinopril 10 Mg Tablet 10 Mg PO DAILY Nicoderm Cq (Nicotine) 14 Mg/24 Hour Patch.td24 14 Mg TD DAILY Iprat-Albut 0.5-3(2.5) mg/3 ml (Ipratropium/Albuterol Sulfate) 0.5 Mg-3 Mg (2.5 Mg Base)/3 Ml Ampul.neb 3 Ml INH RTQ6HR Reported Mucinex (Guaifenesin) 600 Mg Tab.er.12h 600 Mg PO Q12H PRN Prednisone 5 Mg Tablet 5 Mg PO DAILY Trelegy Ellipta 200-62.5-25 (Fluticasone/Umeclidin/Vilanter) 200-62.5 Blst.w.dev 1 Puff INH DAILY Fluoxetine HCl 20 Mg Capsule 20 Mg PO DAILY Buprenorphin-Naloxon 8-2 mg Sl (Buprenorphine HCl/Naloxone HCl) 8 Mg-2 Mg Tab.subl 2.5 Ea SL DAILY TAKES 2 & (8-2MG) TABS Ventolin Hfa (Albuterol Sulfate) 1 Puff Puff 2 Puff IH Q4H PRN Atorvastatin Calcium 20 Mg Tablet 20 Mg PO DAILY Assessment/Pt Instructions pcp 1 week Discharge Planning: <30 minutes discharge planning Discharge Instructions Discharge Diet: No Restrictions Discharge Physical Examination Vital Signs Vital Signs Date Time Temp Pulse Resp B/P (MAP) Pulse Ox O2 Delivery O2 Flow Rate FiO2 3/16/23 11:21 36.7 98 18 141/95 (110) 94 High Flow N/C 3.00 08/19/22 10:07 32 General Appearance: No Apparent Distress, WD/WN, Chronically ill Respiratory: No Accessory Muscle Use, No Respiratory Distress, Decreased Breath Sounds, Wheezing Allergies: Coded Allergies: No Known Drug Allergies (Unverified , 03/30/22) Discharge Summary Date of Admission Aug 09, 2022 at 09:24 Date of Discharge Discharge Date: Aug 19, 2022 Admission Diagnosis Acute hypercapneic respiratory failure Discharge Diagnosis Assessment: This is a 62 y/o male who presented with AHRF 2/2 to likely COPD exacerbation and was admitted to the ICU now on 4th AHRF Hypercapnea COPD exacerbation Elevated lactic acid Acute lower extremity swelling Hx of CAD Hx of HTN Hx of HLD AHRF - resolved Hypercapnea COPD exacerbation -Initially stabilized on BIPAP, then vapotherm, now on 2-3 LPM N.C. -Coninuing IV solu-medrol 80mg q6hr IV -Continuing Montelukast 10 mg HS -CXR has improving bibasilar airpsace opacities compared to previous (08/10); Last XR (08/11) appears largely unchanged -WBC 14.9 --> 11.8 --> 15.7 --> 13.7 --> 9.4 (08/13). Cefepime prophylaxis/exacerbation coverage deescalated to cefdinir on 08/11 BID plan for 5 days; afebrile, symptomatic improvement -Flu A/B, COVID panel negative. -Albuterol and Ipratropium scheduled/PRN -ABG upon ICU admit: 7.29/74/34/34 --> 7.34/53/111/28 --> 7.35/49/107/27 (08/11) - improving acute respiratory acidosis, likely close to baseline CO2 given hx. --D-dimer borderline elevated. Echo to recheck hx of pulmonary artery hypertension and evaluate for increased pressures --> no change in pulm a. pressures, improved EF. Will hold off on CTA. -Previous PFTs: FEV1/FVC 0.36, DLCO significantly elevated in 2020 c/w COPD/e mphysema. -Denies current smoking -On albuterol PRN, non-compliant with fluticasone/umeclidin/vilanter daily at home, 5mg PO prednisone for past month, guifenesin PRN -Started Fluticasone/salmeterol BID, umeclidinium inahler daily -Scheduled guifenesin -UOP increased with a dose of lasix, kidneys tolerated and O2 requirements vastly improved, will redose; is on lasix at home -Patient is due for FU with construction mill[facility] in [place] (Dr. Ulrich) Acute Rt lower extremity swelling -Doppler U/S negative for DVT (08/12) -Vast improvement today on exam s/p second dose of lasix. -Suspected mixed component of PAD given history of dangling leg over bed with mix of CHF -Will continue lasix today and monitor for any changes Elevated Lactic Acid - resolved -Elevated in setting of pO2 in 30s - likely hypoxia driven -Repeat is WNL Hx of CAD -Previously followed with Dr. Chicas; had been prescribed daily ASA, metoprolol, atorvastatin. -Med rec only showing atorvastatin -Consider FU with cardiology outpatient for further evaluation Hx of HTN -Will attempt to see if any outpatient treatment initiated -Pressures mildly elevated at times -Consider adding ACEi/ARB Hx of HLD -Resumed atorvastatin Hx of Opioid Use Disorder -Resumed patient's home Suboxone FEN/GI -Maintenance fluids DC'd; UOP responded favorably to lasix; -Replace electrolytes PRN, WNL today -Regular diet as tolerated; SSI -Bowel regimen (senna/docusate/miralax/lactulose). Add protonix for ulcer ppx. DVT PPx: Lovenox, SCDs Dispo: Stable. Will transfer to the floor and continue work with PT. Consider inpatient rehab given high amount of deconditioning FADI MENDOZA DO Aug 19, 2022 11:45
--- NOTE | 2022-08-19 12:00 | Occupational Ther Daily Note ---
OT Current Status-Daily Note Subjective Up in bed talking on phone to HH and ride to go home, waiting on Dr to release him, agreeable to OT Mental Status/Objective Patient Orientation: Person, Place, Time, Situation Attachments: Oxygen (3NC) ADL-Treatment Therapy Code Descriptions/Definitions Functional [place] Measure: 0=Not Assessed/NA 4=Minimal Assistance 1=Total Assistance 5=Supervision or Setup 2=Maximal Assistance 6=Modified [place] 3=Moderate Assistance 7=Complete IndependenceSCALE: Activities may be completed with or without assistive devices. 4-Cpgpsyvqik-skufrhb completes the activity by him/herself with no assistance from a helper. 5-Set-up or Clean-up Assistance-helper sets up or cleans up; patient completes activity. [place] assists only prior to or following the activity. 4-Supervision or Touching Assistance-helper provides verbal cues and/or touching/steadying and/or contact guard assistance as patient completes activity. Assistance may be provided throughout the activity or intermittently. 3-Partial/Moderate Assistance-helper does LESS THAN HALF the effort. [place] lifts, holds or supports trunk or limbs, but provides less than half the effort. 2-Substantial/Maximal Assistance-helper does MORE THAN HALF the effort. [place] lifts or holds trunk or limbs and provides more than half the effort. 6-Xeztvpawq-wfliil does ALL the effort. Patient does none of the effort to complete the activity. Or, the assistance of 2 or more helpers is required for the patient to complete the activity. If activity was not attempted, code reason: 7-Patient Refused. 9-Not Applicable-not attempted and the patient did not perform the activity before the current illness, exacerbation or injury. 10-Not Attempted due to Environmental Limitations-(lack of equipment, weather restraints, etc.). 88-Not Attempted due to Medical Conditions or Safety Concerns. Eating (QC): 6 Oral Hygiene (QC): 5 Shower/Bathe Self (QC): 7 (declined) Upper Body Dressing (QC): 4 Lower Body Dressing (QC): 4 (SOA and requires RB for Approximately 30-45 seconds between inserting legs into garment and pulling up garments, OT uses gait belt for simulating and demonstrating educaiton for energy conservation techniques ) On/Off Footwear: 5 Toileting Hygiene (QC): 5 Toilet Transfer (QC): 5 Other Treatment BUE THER EX w/ PLB strategies Education OT Patient Education: Correct positioning, Energy conservation, Modified ADL techniques, Purpose of tx/functional activities Teaching Recipient: Patient Teaching Methods: Demonstration, Discussion Response to Teaching: Verbalize Understanding, Reinforcement Needed OT Mcc Goals Hair Dresser Goals Eating (QC): 6 Oral Hygiene (QC): 5 Toileting Hygiene (QC): 4 Shower/Bathe Self (QC): 4 Upper Body Dressing (QC): 4 Lower Body Dressing (QC): 4 On/Off Footwear (QC): 4 1=Demonstrate adherence to instructed precautions during ADL tasks. 2=Patient will verbalize/demonstrate understanding of assistive devices/modifications for ADL. 3=Patient will improve strength/tolerance for activity to enable patient to perform ADL's. OT Education/Plan Discharge Recommendations Plan/Recommendations: Continue POC (while in hospital) Treatment Plan/Plan of Care Patient would benefit from OT for education, treatment and training to promote independence in ADL's, mobility, safety and/or upper extremity function for ADL's. Plan of Care: ADL Retraining, Functional Mobility, Group Exercise/Act as Ind, UE Funct Exercise/Act Treatment Duration: Aug 21, 2022 Frequency: 3 times per week (3-5 times per week) Estimated Hrs Per Day: .25 hour per day Agreement: Yes Rehab Potential: Guarded Time Start Time: 11:04 Stop Time: 11:18 DATE: Aug 19, 2022 Total Time Billed (hr/min): 14 Billed Treatment Time ADL 1 14 min ADARSH GARCIA OT Aug 19, 2022 12:00
[2022-08-19 14:04] VITALS: BP 141/95
== END 2022-08-19 13:55 | disposition home health service (06) | DRG 189 ==
LOC: EDUNIT# 06:30 → ER 06:31 → ICU 09:24 → CSD 08-11 18:34 → 4TH 08-13 14:45
PROVIDERS: ADMIT Internal Medicine; ATTEND Family Medicine
PROC: 5A09357 Assistance with Respiratory Ventilation, Less than 24 Consecutive Hours, Continuous Positive Airway Pressure (ICD-10-PCS; principal; 2022-08-09)
PROC: 5A0935A Assistance with Respiratory Ventilation, Less than 24 Consecutive Hours, High Flow/Velocity Cannula (ICD-10-PCS; 2022-08-10)
DX: J96.22 Acute and chronic respiratory failure with hypercapnia (principal); J44.1 Chronic obstructive pulmonary disease with (acute) exacerbation; F11.20 Opioid dependence, uncomplicated; E87.20 Acidosis, unspecified; R53.81 Other malaise; I10 Essential (primary) hypertension; I25.10 Atherosclerotic heart disease of native coronary artery without angina pectoris; M79.89 Other specified soft tissue disorders; Z87.891 Personal history of nicotine dependence; E78.00 Pure hypercholesterolemia, unspecified; Z20.822 Contact with and (suspected) exposure to COVID-19
CPT/HCPCS: 36415; 36600; 71045; 80048; 80053; 81000; 82805; 82947; 83605; 83735; 84100; 84484; 85007; 85025; 85027; 85379; 85610; 85730; 87040; 87081; 87088; 87636; 93005; 93306; 94640; 94660; 94760; 96361; 96365; 96375

== ENCOUNTER 2022-10-28 19:19 | Outpatient (CLI) | payer MEDICARE, MEDICAID ==
[~2022-10-28 19:19] MED LIST changes: +FLUO20CA48 PO; +FLUT1BLS15 INH; +GUAI600T43 PO; +IPRA3AMP31 INH; +LISI10TA25 PO; +MONT-40 PO; +NICO1PAT38 TD; +OXC5T PO; +PRED10TA22 PO; +PRED5TAB PO
== END 2022-10-29 06:20 | disposition home or self-care (01) ==
LOC: SLEEP 19:19
PROVIDERS: ATTEND Pediatrics
DX: G47.30 Sleep apnea, unspecified (principal); J44.9 Chronic obstructive pulmonary disease, unspecified; I25.10 Atherosclerotic heart disease of native coronary artery without angina pectoris; J96.22 Acute and chronic respiratory failure with hypercapnia; F17.218 Nicotine dependence, cigarettes, with other nicotine-induced disorders
CPT/HCPCS: 95810

== ENCOUNTER → 2023-03-09 | Outpatient (CLI) | payer MEDICARE, MEDICAID | LOC: WOUNDCARE 13:57 | PROVIDERS: ATTEND Family Medicine | DX: L97.212 Non-pressure chronic ulcer of right calf with fat layer exposed (principal); I70.232 Atherosclerosis of native arteries of right leg with ulceration of calf; I87.331 Chronic venous hypertension (idiopathic) with ulcer and inflammation of right lower extremity; I89.0 Lymphedema, not elsewhere classified; E66.01 Morbid (severe) obesity due to excess calories; Z99.81 Dependence on supplemental oxygen; Z79.52 Long term (current) use of systemic steroids | CPT/HCPCS: 99212 ==

== ENCOUNTER 2023-03-16 11:00 | Day surgery (SDC) | payer MEDICARE ==
[2023-03-16] VITALS (13 sets, daily range): BP systolic 86–155; BP diastolic 52–101
[~2023-03-16] VITALS: Ht 172 cm; Wt 87.5 kg
[2023-03-16 10:07] LABS: HEMATOCRIT 39 % (40-54); HEMOGLOBIN 12.6 g/dL (13.3-17.7); MEAN CORPUSCULAR HEMOGLOBIN 32 pg (25-34); MEAN CORPUSCULAR HGB CONC 33 g/dL (32-36); MEAN CORPUSCULAR VOLUME 99 fL (80-99); MEAN PLATELET VOLUME 9.5 fL (9.0-12.2); PLATELET COUNT 208 10^3/uL (130-400); WHITE BLOOD COUNT 8.3 10^3/uL (4.3-11.0)
--- NOTE | 2023-03-16 10:14 | Diagnostic Imaging Report ---
INDICATION: Coronary artery disease, precatheterization. TECHNIQUE/COMPARISON: A frontal chest was obtained at 9:47 AM and compared with 08/11/2022. FINDINGS: The heart is mildly enlarged. There are chronic appearing increased interstitial markings. There is no consolidation or pneumothorax. There appears to be a trace of pleural fluid in the left costophrenic angle. IMPRESSION: Mild cardiomegaly and chronic appearing increased interstitial markings. No consolidation. Minimal left pleural effusion. Dictated by: Dictated on workstation # [id number]
[2023-03-16 10:23] LABS: INR 1.1 (0.8-1.4); PROTHROMBIN TIME PATIENT 14.1 SEC (12.2-14.7)
--- NOTE | 2023-03-16 10:31 | Cardiac Procedure Note-CS/ASA ---
Pre-Procedure Note Pre-Op Procedure Note Date of Available H&P: Mar 07, 2023 Date H&P Reviewed: Mar 16, 2023 Time H&P Reviewed: 10:30 History & Physical: H&P Reviewed, Patient Examed, No changes noted Pre-Operative Diagnosis: PAD Moderate Sedation PreProcedure Time 10:30 ASA Score 3 Airway Lungs Heart ASA score ASA 1: a normal healthy patient ASA 2: a patient with a mild systemic disease (mid diabetes, controlled hypertension, obesity ASA 3: a patient with a severe systemic disease that limits activity (angina, COPD, prior Myocardial infarction) ASA 4: a patient with an incapacitating disease that is a constant threat to life (CHF, renal failure) ASA 5: a moribund patient not expected to survive 24 hrs. (ruptured aneurysm) ASA 6: a declared brain- patient whose organs are being harvested. For emergent operations, add the letter E after the classification Mallampati Classification Grade 3 Sedation Plan Analgesia, Amnesia, Plan communicated to team members, Discussed options with patient/fam, Discussed risks with patient/fam The patient is an appropriate candidate to undergo the planned procedure, sedation, and anesthesia. The patient immediately re-assessed prior to indication. MARGARITA VENEGAS MD Mar 16, 2023 10:31
[2023-03-16 10:33] LABS: ALBUMIN 3.9 GM/DL (3.2-4.5); BILIRUBIN,TOTAL 0.6 MG/DL (0.1-1.0); CALCIUM 9.7 MG/DL (8.5-10.1); CREATININE SERUM 0.86 MG/DL (0.60-1.30); POTASSIUM 3.8 MMOL/L (3.6-5.0); TOTAL PROTEIN 7.9 GM/DL (6.4-8.2)
[~2023-03-16 11:00] MED LIST changes: +BUDE0.5A IH; +FLUT1BLS15 IH; +FURO40TA4 PO; +HEParin (CATH LAB) 2,000 ML IV ONE; +IPRA3AMP31 IH; +LIDOCAINE 1% INJ 20 ML VIAL ONE; +MIDAZOLAM INJ 5 MG/5 ML VIAL ONE; +MULT-1136 PO; +NICO-587 TD; +NS IV 1000 ML 1,000 ML IV ONE; +NS IV 1000 ML 1,000 ML ONE; +POTA-330 PO; +fentaNYL INJECTION 100 MCG/2 ML VIAL ONE
[2023-03-16] MEDS ORDERED: HEParin 1000 UNIT/ML (10ML VIAL) FOR BOLUS ONE (11:08)
[2023-03-16] MEDS ORDERED: NITRO DRIP 25000 MCG/D5W 250 ML IV ONE (11:44)
--- NOTE | 2023-03-16 12:09 | Peripheral Report ---
Peripheral Report Physician (s)/Salt Grinder (s) Physician MARGARITA VENEGAS MD Pre-Procedure Diagnosis Pre-Procedure Diagnosis: PAD Post-Procedure Note Procedure Start Date: Mar 16, 2023 Name of Procedure: Bilateral lower extremities runoff Third order Additional images x2 PATIENT SERVICES TECHNICIAN to the right anterior tibial artery Findings/Procedure Note PROCEDURE NOTE: 62-year-old gentleman with peripheral arterial disease, recurrent ulceration of his lower extremity abnormal CT angiogram. Scheduled for peripheral angiogram After explaining the procedure to the patient, all pros and cons were explained, all questions were answered. The patient signed the consent and then he was placed on the cardiac catheterization laboratory. The patient was placed on the cardiac catheterization laboratory. Groin was prepped SL fashion local anesthesia was used. Sheath placed in the left femoral artery, runoff to the left lower extremity was done through the sheath. Using a rim catheter I crossed over advanced a Storq wire to the popliteal artery and advanced straight catheter did DSA imaging and patient had total occlusion of the anterior tibial artery and posterior tibial artery I advanced multiple wires with multiple attempts through the anterior tibial artery I was successful with a long BMW advanced mini 18 catheter then exchanged to command 14. I was unable to reach the dorsalis pedis, it appeared that there was a small perforation. I retracted the wire and the catheter then did balloon inflation in the mid and proximal anterior tibial artery. Angiogram showed reestablishment of flow in the proximal and mid anterior tibial artery. Continue to have occlusion distally at the level of the foot there are collateral filling retrograde. The sheath was retracted to the level of the proximal SFA and I did runoff to the right leg then retracted it to the common iliac artery and did runoff then the sheath was removed and exchanged over a wire to a short 6 [place] and closure device deployed FINDINGS: Right lower extremity: Right common iliac and common femoral arteries has mild disease nonobstructive disease Right SFA and popliteal arteries has mild disease nonobstructive disease Right anterior tibial artery is occluded proximally successful angioplasty to the proximal and mid anterior tibial artery, I was unable to cross over to the dorsalis pedis artery continue to have occlusion distally. Right peroneal artery is patent giving collaterals to the anterior tibial artery Right posterior tibial artery is very small artery occluded proximally Left lower extremity: Left SFA and popliteal artery has mild disease nonobstructive disease Left peroneal artery is patent Left anterior tibial artery and posterior tibial artery has slow flow. Probably occluded distally. CONCLUSIONS: Total occlusion of the right anterior tibial artery with successful balloon angioplasty of the proximal and mid anterior tibial artery, there is occlusion distally I was unable to cross it. Right posterior tibial artery is totally occluded very small artery Right peroneal artery is patent giving collaterals at the level of the foot On the left side there is nonobstructive disease down to the trifurcation below the trifurcation there is slow flow with questionable occlusion in the left anterior tibial artery distally DISCUSSION AND RECOMMENDATIONS: Continue to maximize medical therapy and monitor Anesthesia Type: Conscious Sedation Estimated blood loss (mL): 25 ml Contrast Amount: 72 ml Total Radiation Dose: 175 mGy Post-Procedure Diagnosis Post-operative diagnosis: Ischemic foot ulcer Peripheral arterial disease Hypertension Hyperlipidemia MARGARITA VENEGAS MD Mar 16, 2023 12:09
[2023-03-16] MEDS ORDERED: FUROSEMIDE 40 MG TABLET PO PRN ×2 (12:15→13:45)
[2023-03-16] MEDS ORDERED: RT-ALBUTEROL SULF 2.5 MG/3 ML PRE-MIX VIAL IH PRN (12:15)
[2023-03-16] MEDS ORDERED: CLOPIDOGREL 300 MG TABLET PO ONE (12:15)
[2023-03-16] MEDS ORDERED: RT-Ipratropium/Albuterol NEB 3 ML VIAL IH PRN (12:15)
[2023-03-16] MEDS ORDERED: PATIENT MAY USE OWN MEDS, ALL PO SCH (12:15)
[2023-03-16] MEDS ORDERED: NON-FORMULARY MEDICATION 1 EA EA (Potassium Chloride 20 MEQ) PO PRN (12:15)
[2023-03-16] MEDS ORDERED: ASPIRIN 325 MG TABLET ONE (12:15)
[2023-03-16] MEDS: NS IV 1000 ML 1,000 ML IV SCH ×2 (12:52→23:24)
[2023-03-16] MEDS ORDERED: predniSONE 5 MG TABLET PO SCH ×2 (13:00→14:00)
[2023-03-16] MEDS ORDERED: FLUoxetine 20 MG CAPSULE PO SCH ×2 (13:00→14:00)
[2023-03-16] MEDS ORDERED: NON-FORMULARY MEDICATION 1 EA EA (Multivitamin 1 EACH) PO SCH (13:00)
[2023-03-16] MEDS ORDERED: AZITHROMYCIN 250 MG TABLET PO SCH ×2 (13:00→14:00)
[2023-03-16] MEDS ORDERED: POTASSIUM CHLORIDE 20 MEQ TABLET PO PRN ×2 (13:30→13:45)
[2023-03-16] MEDS ORDERED: THERAPEUTIC MULTIVITAMIN W/MINERALS TABLET PO SCH (13:30)
[2023-03-16] MEDS: NALOXONE 2 MG SL SCH (18:03)
[2023-03-16] MEDS: BUPRENORPHINE SL SCH (18:03)
[2023-03-17] VITALS: BP 100/61
[2023-03-17 04:00] VITALS: BP 105/63
[2023-03-17 04:41] LABS: HEMATOCRIT 35 % (40-54); HEMOGLOBIN 11.7 g/dL (13.3-17.7); MEAN CORPUSCULAR HEMOGLOBIN 32 pg (25-34); MEAN CORPUSCULAR HGB CONC 33 g/dL (32-36); MEAN CORPUSCULAR VOLUME 97 fL (80-99); MEAN PLATELET VOLUME 9.4 fL (9.0-12.2); PLATELET COUNT 198 10^3/uL (130-400); WHITE BLOOD COUNT 8.1 10^3/uL (4.3-11.0)
[2023-03-17 04:59] LABS: POTASSIUM 4.3 MMOL/L (3.6-5.0)
[2023-03-17 05:01] LABS: CALCIUM 8.9 MG/DL (8.5-10.1)
[2023-03-17 05:05] LABS: CREATININE SERUM 0.81 MG/DL (0.60-1.30)
[2023-03-17 08:00] VITALS: BP 140/84
[2023-03-17] MEDS ORDERED: FLUTICASONE/VILANTEROL 200/25 MCG (7 DOSES) IH SCH (08:00)
[2023-03-17] MEDS ORDERED: UMECLIDINIUM BROMIDE (INCRUSE ELLIPTA) 7'S IH SCH (08:00)
[2023-03-17] MEDS ORDERED: RT-BUDESONIDE NEBS 0.5 MG/2ML VIAL IH SCH (08:00)
[2023-03-17] MEDS ORDERED: CLOP75TA28 PO (08:15)
[2023-03-17] MEDS ORDERED: ASPI-1238 PO (08:15)
[2023-03-17] MEDS ORDERED: PANT40TA2 PO (08:15)
--- NOTE | 2023-03-17 08:16 | Discharge Inst-Post CATH ---
Discharge Inst-CATH/EP Problems Reviewed?: Yes Post Cardiac Cath/EP D/C Inst Follow Up/Plan Appointment with Dr. Samuel's office in 2 to 4 weeks <b>CARDIAC CATH/EP PROCEDURE DISCHARGE INSTRUCTIONS</b> ACTIVITY * Go Home directly and rest. * Limit activity of the leg (or wrist if it was used) for 7 days including aer obics, swimming, jogging, bicycling, etc. * Restrict stair-climbing for 7 days if possible, if not, climb up with your non-cath leg, then bring together on the same step. * Avoid lifting, pushing, pulling or excessive movement of the affected extremi ty for 7 days. * Customary sexual activity may be resumed after 2 days-use caution not to use a position that strains or causes pain to the affected extremity. * No driving for 24 hours. * NO SMOKING. * Avoid straining for bowel movements for 7 days. * Gentle walking on level ground is allowed. * Returning to work will depend on the type of procedure and the results. Your doctor will discuss this with you. CALL YOUR DOCTOR FOR ANY OF THE FOLLOWING: *If bleeding from the puncture site occurs- Apply gentle pressure to site with clean cloth and call your doctor or EMS. * If a knot or lump forms under the skin, increases in size, or causes pain. * If bruising appears to be worsening or moving further down your leg instead of disappearing. * Temperature above 101 F. CARE OF YOUR GROIN INCISION; * Bruising or purple discoloration of the skin near the puncture site is common. * You may shower only, no bathtub bathing for 5 days. Be careful to avoid slipping as your leg may feel stiff. * If a closure device was used on your femoral artery, please see the attached guide regarding care of the device and your leg. * Leave dressing on FOR 24 hours. CARE OF YOUR WRIST INCISION; * Bruising or purple discoloration of the skin near the puncture site is common. * You may shower. * DO NOT submerge wrist. * Leave dressing on FOR 24 hours. MARGARITA SAMUEL MD Mar 17, 2023 08:16
--- NOTE | 2023-03-17 08:18 | Cardiology Progress Note ---
Subjective Date Seen by Provider: Mar 17, 2023 Time Seen by Provider: 08:16 Subjective/Events-last exam Patient was seen at bedside, laying down comfortably, feeling well, groin is healing well. Objective-Cardiology Exam Last Set of Vital Signs Vital Signs 03/17/23 03/17/23 08:00 08:14 Temp 35.9 Pulse 87 Resp 22 B/P (MAP) 140/84 (102) Pulse Ox 93 O2 Delivery Nasal Cannula O2 Flow Rate 4.00 General: Alert, Oriented X3, Cooperative HEENT: Atraumatic, PERRLA Neck: Supple, No JVD, No Thyromegaly Lungs: Clear to Auscultation, Normal Air Movement Heart: Regular Rate, Normal S1, Normal S2, No Murmurs Abdomen: Normal Bowel Sounds, Soft, No Tenderness, No Hepatosplenomegaly, No Masses Extremities: No Clubbing, No Cyanosis, No Edema, Normal Pulses, No Tenderness/Swelling Skin: No Rashes, No Breakdown, No Significant Lesion Neuro: Normal Gait, Normal Speech, Strength at 5/5 X4 Ext, Normal Tone, Sensation Intact Psych/Mental Status: Mental Status NL, Mood NL Results Lab Laboratory Tests 03/16/23 09:34 03/17/23 04:32 A/P-Cardiology Admission Diagnosis Claudication Peripheral arterial disease Hypertension Hyperlipidemia Assessment/Plan Claudication, peripheral arterial disease Status post [employer] to the right anterior tibial artery, good results. Has severe disease at the posterior tibial artery. Slow flow on the left lower extremity. Patient was started on aspirin and Plavix, has been maintained on prednisone, I am adding Protonix Hypertension, continue current medication monitor blood pressure Hyperlipidemia, continue current medication monitor lipids I am planning for discharge today and follow-up as an outpatient MARGARITA VENEGAS MD Mar 17, 2023 08:18
[2023-03-17] MEDS ORDERED: CLOPIDOGREL 75 MG TABLET PO SCH (09:00)
[2023-03-17] MEDS ORDERED: NON-FORMULARY MEDICATION 1 EA EA (Fluticasone/Umeclidin/Vilanter (Trelegy Ellipta 200-62.5 IH SCH (09:00)
[2023-03-17] MEDS ORDERED: TRELEGY ELLIPTA 200/62.5/25 MCG INHALER IH SCH (09:00)
[2023-03-17] MEDS ORDERED: ASPIRIN enteric coated 81MG TABLET PO SCH (09:00)
[2023-03-17] MEDS: NALOXONE 2 MG SL SCH (09:23)
[2023-03-17] MEDS: BUPRENORPHINE SL SCH (09:23)
== END 2023-03-17 11:05 | disposition home or self-care (01) ==
LOC: EDSTATUS 11:00 → CATH 11:00 → CSD 11:00 → CATH 12:34 → CSD 12:34 → CATH 03-17 11:05
PROVIDERS: ATTEND Internal Medicine Cardiovascular Disease
DX: I70.209 Unspecified atherosclerosis of native arteries of extremities, unspecified extremity (principal); I70.92 Chronic total occlusion of artery of the extremities; I77.1 Stricture of artery; I10 Essential (primary) hypertension; J44.9 Chronic obstructive pulmonary disease, unspecified; S81.801A Unspecified open wound, right lower leg, initial encounter; E78.2 Mixed hyperlipidemia; L97.519 Non-pressure chronic ulcer of other part of right foot with unspecified severity; I25.10 Atherosclerotic heart disease of native coronary artery without angina pectoris; Z79.899 Other long term (current) drug therapy; Z87.891 Personal history of nicotine dependence; Z99.81 Dependence on supplemental oxygen
CPT/HCPCS: 36415; 71045; 80048; 80053; 80061; 85027; 85347; 85610; 85730; 87081; 93005; 94640; 94760